=== PATIENT | female | born 1990 | race Caucasian/White ===

== ENCOUNTER 2016-12-16 15:17 | Inpatient (IN) | payer OTHER ==
[2016-12-16 15:17] VITALS: BMI 20.5
[2016-12-16] MEDS ORDERED: Sodium Chloride 0.9% 1,000 ML IV STA ×3 (15:28→16:48)
--- NOTE | 2016-12-16 15:48 | ED PDOC ---
HPI: Abdomen Time Seen by Provider: 12/16/16 15:25 Chief Complaint (Nursing): GI Problem Chief Complaint (Provider): Vomiting and Hyperglycemia History Per: Patient History/Exam Limitations: no limitations Onset/Duration Of Symptoms: Days (4 days) Outside of [place] travel?: No Current Symptoms Are (Timing): Still Present Associated Symptoms: denies: Fever, Diarrhea Additional Complaint(s): Concepcion Zuniga, a 26 year old female,who has a PMHx of insulin dependent diabetes presents to the ED for vomiting and hyperglycemia, which she has been experiencing for 4 days. The patient states that she has been taking her insulin at home and her glucose levels have been in the 400's and have also been reading "HI". Denies associated fever, abdominal pain and diarrhea. Past Medical History Reviewed: Historical Data, Nursing Documentation, Vital Signs Vital Signs: Last Vital Signs Temp 98.0 F 12/16/16 15:20 Pulse 100 H 12/16/16 15:20 Resp 16 12/16/16 15:20 BP 124/69 12/16/16 15:20 Pulse Ox 100 12/16/16 15:58 - Medical History PMH: Bronchitis, Diabetes Denies: Anxiety, Bipolar Disorder, Depression, Paranoia, Post Traumatic Stress Disorder, Chronic Kidney Disease, Schizophrenia - Surgical History Surgical History: - Family History Family History: States: Unknown Family Hx - Social History Current smoker - smoking cessation education provided: Yes Alcohol: Social Drugs: Denies - Immunization History Hx Tetanus Toxoid Vaccination: No Hx Influenza Vaccination: No Hx Pneumococcal Vaccination: No - Home Medications Home Medications: Ambulatory Orders Medication Instructions Recorded Insulin Lispro [humALOG] 10 unit SC ASDIR 11/05/16 Insulin Lispro [humALOG] 15 - 25 unit SC ACTID 11/05/16 - Allergies Allergies/Adverse Reactions: Allergies Allergy/AdvReac Type Severity Reaction Status Date / Time No Known Allergies Allergy Verified 11/28/15 15:06 Review of Systems ROS Statement: Except As Marked, All Systems Reviewed And Found Negative Constitutional: Positive for: Other (Hyperglycemia). Negative for: Fever ENT: Negative for: Throat Pain, Throat Swelling Cardiovascular: Positive for: Chest Pain. Negative for: Palpitations Respiratory: Negative for: Cough, Shortness of Breath Gastrointestinal: Positive for: Nausea, Vomiting. Negative for: Abdominal Pain , Diarrhea Genitourinary Female: Negative for: Dysuria, Hematuria Skin: Negative for: Rash, Lesions Neurological: Negative for: Weakness, Numbness, Incoordination, Confusion, Seizures, Altered Mental Status, Headache, Dizziness Physical Exam - Reviewed Nursing Documentation Reviewed: Yes Vital Signs Reviewed: Yes - Physical Exam Appears: Positive for: Non-toxic, No Acute Distress Head Exam: Positive for: ATRAUMATIC, NORMOCEPHALIC Skin: Positive for: Normal Color, Warm, Dry Eye Exam: Positive for: Normal appearance, EOMI, PERRL ENT: Positive for: Normal ENT Inspection Neck: Positive for: Normal, Painless ROM, Supple Cardiovascular/Chest: Positive for: Tachycardia. Negative for: Irregularly Irregular Respiratory: Positive for: Normal Breath Sounds. Negative for: Wheezing, Respiratory Distress Gastrointestinal/Abdominal: Positive for: Normal Exam, Bowel Sounds, Soft. Negative for: Tenderness Back: Positive for: Normal Inspection. Negative for: L CVA Tenderness, R CVA Tenderness Extremity: Positive for: Normal ROM. 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 Negative for: Motor/Sensory Deficits - Laboratory Results Result Diagrams: 12/16/16 15:45 12/16/16 15:45 Urine POC: Negative - ECG Interpretation Of ECG: ST @ 102, no ST-T changes. O2 Sat by Pulse Oximetry: 100 (RA) Pulse Ox Interpretation: Normal - Radiology X-Ray: Read By Radiologist X-Ray Interpretation: No Acute Disease - Progress ED Course And Treament: Pt administered 3L NS and Insulin drip initiated. - Physician Consult Information Time Consulting Physican Contacted: 17:41 Physician Contacted: Miike Mota Outcome Of Conversation: Admit to ICU. - Critical Care Total Time (In Min): 30 Medical Decision Making Medical Decision Makin:25 Initial Impression: 26 year old female presenting with vomiting and hyperglycemia. Initial Plan: * EKG * CMP * Troponin 1 * Udip * Upreg * CBC * PTT * Prothrombin time * CXR * NS 1000ml IV 1000ml/hr * Zofran Inj 4mg IV * Glucose, blood, POC * Urinalysis Scribe Attestation Documented by Megan Ibanez acting as a scribe for Sarah Whitney MD. Provider Attestation All medical record entries made by the Scribe were at my direction and personally dictated by me. I have reviewed the chart and agree that the record accurately reflects my personal performance of the history, physical exam, medical decision making, and the department course for this patient. I have also personally directed, reviewed, and agree with the discharge instructions and disposition. Disposition - Clinical Impression Clinical Impression: DKA (diabetic ketoacidosis) - Patient ED Disposition Is Patient to be Admitted: Yes - Disposition Disposition Time: 17:45 Condition: GUARDED - Pt Status Changed To: Hospital Disposition Of: Inpatient - Admit Certification Admit to Inpatient:: After my assessment, the patient will require hospitalization for at least two midnights. This is because of the severity of symptoms shown, intensity of services needed, and/or the medical risk in this patient being treated as an outpatient. - POA Present On Arrival: Poor Glycemic Control
[2016-12-16 15:57] LABS: BASO # 0.1 K/uL (0.0-0.2); BASO % 1.1 % (0.0-2.0); EOS % 0.7 % (0.0-4.0); HEMATOCRIT 45.8 % (34.0-47.0); LYMPH # 1.1 K/uL (1.0-4.3); LYMPH % 23.7 % (20.0-40.0); MEAN CELL VOLUME 95.1 fl (81.0-99.0); MEAN CORPUSCULAR HEMOGLOBIN 29.5 pg (27.0-31.0); MONO # 0.2 K/uL (0.0-0.8); MONO % 4.3 % (0.0-10.0); NEUT # 3.4 K/uL (1.8-7.0); NEUT % 70.2 % (50.0-75.0); NRBC % 0.2 % (0.0-0.0); RED CELL DISTRIBUTION WIDTH 15.3 % (11.5-14.5); WHITE BLOOD COUNT 4.8 K/uL (4.8-10.8)
[2016-12-16 16:17] LABS: ALB/GLOB RATIO 1.4 (1.0-2.1); ALKALINE PHOSPHATASE 124 U/L (38-126); ALT/SGPT 59 U/L (9-52); AST/SGOT 57 U/L (14-36); BLOOD UREA NITROGEN 10 mg/dl (7-17); CALCIUM 9.1 mg/dL (8.4-10.2); CHLORIDE 97 mmol/L (98-107); GFR AFRICAN-AMERICAN > 60; SODIUM 137 mmol/l (132-148); TOTAL PROTEIN 8.5 G/DL (6.3-8.2)
[2016-12-16 16:22] LABS: RBC URINE 8 /hpf (0-3); URINE BACTERIA RARE (<OCC); URINE BILIRUBIN NEGATIVE (NEGATIVE); URINE BLOOD NEGATIVE (NEGATIVE); URINE COLOR STRAW (YELLOW); URINE GLUCOSE (UA) >=500 mg/dL (Normal); URINE KETONE 80 mg/dL (NEGATIVE); URINE LEUKOCYTE ESTERASE MOD Leu/uL (Negative); URINE PROTEIN NEGATIVE (NEGATIVE); URINE UROBILINOGEN 0.2-1.0 mg/dL (0.2-1.0); WBC URINE 5 /hpf (0-5)
[2016-12-16 16:23] LABS: PARTIAL THROMBOPLASTIN TIME 23.7 SECONDS (23.3-32.5)
[2016-12-16 16:26] LABS: CARBON DIOXIDE 8 mmol/L (22-30); GLUCOSE,RANDOM 598 mg/dL (65-105)
--- NOTE | 2016-12-16 16:48 | RAD ---
HISTORY: Hyperglycemia COMPARISON: No prior. FINDINGS: LUNGS: No active pulmonary disease. PLEURA: No significant pleural effusion identified, no pneumothorax apparent. CARDIOVASCULAR: Normal. OSSEOUS STRUCTURES: No significant abnormalities. VISUALIZED UPPER ABDOMEN: Normal. OTHER FINDINGS: None. IMPRESSION: No active disease.
[2016-12-16] MEDS ORDERED: Dextrose 50% SYRINGE Inj (50 ml) IV PRN (16:49)
[2016-12-16] MEDS ORDERED: Glucagon Recombinant 1 mg Inj IM PRN (16:49)
[2016-12-16 17:15] LABS: VENOUS BLOOD GAS BASE EXCESS -19.9 mmol/L (0.0-2.0); VENOUS BLOOD GAS PCO2 24 mmHg (40-60); VENOUS BLOOD PH 7.12 (7.32-7.43)
--- NOTE | 2016-12-16 19:48 | CP.PCM.CON ---
History of Present Illness - History of Present Illness History of Present Illness: Attending: Dr Roy PCP: [facility] Reason for Consult: Critical care management Chief Complaint: Vomiting HPI: 26 years old female with hx of DM I and many previous admissions for DKA comes with a three to four days hx of vomiting, generalized body pains, mild dizziness,mild chest pains, palpitations and SOB on exertion, not able to keep down food. She referred taking her Insulin but her blood glucose has been running high. No fever, ulcerations, diarrhea dysuria nor abdominal pains. 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 absent: Edema, Palpitations - Respiratory Respiratory: Dyspnea. absent: Cough, Hemoptysis, Wheezing - Gastrointestinal Gastrointestinal: Nausea, Vomiting. absent: Abdominal Pain, Constipation, Diarrhea - Genitourinary Genitourinary: absent: Dysuria, Flank Pain, Hematuria, Urinary Hesitance - Musculoskeletal Musculoskeletal: Myalgias. absent: Arthralgias, Muscle Weakness - Integumentary Integumentary: absent: Pruritus, Rash, Skin Ulcer, Sores, Striae, Swelling - Neurological Neurological: absent: Confusion, Dizziness, Paresthesias, Vertigo - Psychiatric Psychiatric: absent: Anxiety, Depression, Panic Attacks - Endocrine Endocrine: Palpitations. absent: Polydipsia, Polyphagia, Polyuria - Hematologic/Lymphatic Hematologic: absent: Easy Bleeding, Easy Bruising Past Patient History - Infectious Disease Hx of Infectious Diseases: None - Tetanus Immunizations Tetanus Immunization: Unknown - Past Medical History & Family History Past Medical History?: Yes - Past Social History Smoking Status: Light Smoker < 10 Cigarettes Daily Chewing Tobacco Use: No Cigar Use: No Alcohol: Social Drugs: Denies Home Situation {Lives}: With Family - CARDIAC Hx Cardiac Disorders: No - PULMONARY Hx Respiratory Disorders: No - NEUROLOGICAL Hx Neurological Disorder: No - HEENT Hx HEENT Problems: No - RENAL Hx Chronic Kidney Disease: No - ENDOCRINE/METABOLIC Hx Endocrine Disorders: Yes (dm1) Hx Diabetes Mellitus Type 1: Yes - HEMATOLOGICAL/ONCOLOGICAL Hx Blood Disorders: No - INTEGUMENTARY Hx Dermatological Problems: No - MUSCULOSKELETAL/RHEUMATOLOGICAL Hx Musculoskeletal Disorders: No - GASTROINTESTINAL Hx Gastrointestinal Disorders: No - GENITOURINARY/GYNECOLOGICAL Hx Genitourinary Disorders: No - PSYCHIATRIC Hx Psychophysiologic Disorder: No - SURGICAL HISTORY Hx Surgeries: Yes Hx Section: Yes - ANESTHESIA Hx Anesthesia: Yes Hx Anesthesia Reactions: No Hx Malignant Hyperthermia: No Meds Allergies/Adverse Reactions: Allergies Allergy/AdvReac Type Severity Reaction Status Date / Time No Known Allergies Allergy Verified 11/28/15 15:06 - Medications Medications: Current Medications Dextrose (Dextrose 50% Inj) 0 ml IV STAT PRN; Protocol PRN Reason: Hyglycemia Protocol Dextrose (Glutose 15) 0 gm PO ONCE PRN; Protocol PRN Reason: Hypoglycemia Protocol Glucagon (Glucagen Diagnostic Kit) 0 mg IM STAT PRN; Protocol PRN Reason: Hypoglycemia Protocol Insulin Human Regular 100 (units/ Sodium Chloride) 101 mls @ 6.06 mls/hr IVPB .[id number] LANETTE; 6 UNITS/HR PRN Reason: Protocol Last Admin: 12/16/16 17:19 Dose: 6.06 mls/hr Physical Exam - Constitutional Appears: No Acute Distress - Head Exam Head Exam: ATRAUMATIC, NORMAL INSPECTION, NORMOCEPHALIC - Eye Exam Eye Exam: EOMI, Normal appearance Pupil Exam: NORMAL ACCOMODATION, PERRL - ENT Exam ENT Exam: Mucous Membranes Moist, Normal Exam, Normal External Ear Exam, Normal Oropharynx - Neck Exam Neck exam: Positive for: Full Rom, Normal Inspection. Negative for: Lymphadenopathy, Tenderness - Respiratory Exam Respiratory Exam: Clear to Auscultation Bilateral. absent: Rales, Rhonchi, Wheezes - Cardiovascular Exam Cardiovascular Exam: REGULAR RHYTHM, RRR, +S1, +S2. absent: Gallop, JVD - GI/Abdominal Exam GI & Abdominal Exam: Normal Bowel Sounds, Soft. absent: Mass, Organomegaly, Tenderness - Rectal Exam Rectal Exam: Deferred - Extremities Exam Extremities exam: Positive for: full ROM, normal inspection. Negative for: calf tenderness, pedal edema - Back Exam Back exam: NORMAL INSPECTION. absent: CVA tenderness (L), CVA tenderness (R) - Neurological Exam Neurological exam: Alert, CN II-XII Intact, Oriented x3, Reflexes Normal - Psychiatric Exam Psychiatric exam: Normal Affect, Normal Mood - Skin Skin Exam: Dry, Intact, Normal Color, Warm Results - Vital Signs Recent Vital Signs: Last Vital Signs Temp 98 F 12/16/16 18:30 Pulse 95 H 12/16/16 18:30 Resp 18 12/16/16 18:30 BP 124/79 12/16/16 18:30 Pulse Ox 100 12/16/16 18:30 - Labs Result Diagrams: 12/16/16 15:45 12/16/16 21:07 - EKG Data EKG comments: Sinus tachycardia 102/min - Imaging and Cardiology Chest x-ray Status: Image reviewed by me Additional comment: No active disease Assessment & Plan - Assessment and Plan (Free Text) Assessment: #. DKA #. DM I with Hyperglycemia Plan: 26 years old female with hx of DM I and many previous admissions for DKA comes with a three to four days hx of vomiting, generalized body pains, mild dizziness,mild chest pains, palpitations and SOB on exertion, not able to keep down food. In the ED her Blood Glucose was 598mg/dl #. DKA - IV Fluids NS - IV regular Insulin drip titrate to protocol of DKA until Anion gap has normalized - Accucheck Q1hr - Change IV fluid to D5/NS when Blood Sugar falls below 250mg/dl - Hold diet until Blood glucose is controlled - Monitor Potassium, Magnesium, phosphorus #. DM I with Hyperglycemia - IV fluids and Insulin - Treat as above #. DVT prophylaxis with Lovenox #. Code Status: Full - Date & Time Date: 12/16/16 Time: 19:48
[2016-12-16] MEDS ORDERED: Sodium Chloride 0.9% 1,000 ML IV SCH (20:30)
[2016-12-16 21:44] LABS: BLOOD UREA NITROGEN 7 mg/dl (7-17); CALCIUM 7.8 mg/dL (8.4-10.2); CHLORIDE 107 mmol/L (98-107); GFR AFRICAN-AMERICAN > 60; GLUCOSE,RANDOM 97 mg/dL (65-105); MAGNESIUM 1.7 MG/DL (1.6-2.3); PHOSPHOROUS 2.2 mg/dl (2.5-4.5); POTASSIUM 3.8 MMOL/L (3.6-5.0); SODIUM 143 mmol/l (132-148)
[2016-12-16 21:46] LABS: CARBON DIOXIDE 9 mmol/L (22-30)
[2016-12-16] MEDS: Potassium Chloride 10 MEQ in Dextrose 5%/0.9% NS 1,000 ML IV SCH (23:26)
[2016-12-17] MEDS: Potassium Chloride 10 MEQ in Dextrose 5%/0.9% NS 1,000 ML IV SCH ×2 (04:41→12:29)
[2016-12-17 05:33] LABS: BASO # 0.1 K/uL (0.0-0.2); BASO % 1.1 % (0.0-2.0); EOS # 0.1 K/uL (0.0-0.7); EOS % 1.6 % (0.0-4.0); LYMPH # 1.7 K/uL (1.0-4.3); MEAN CELL VOLUME 92.2 fl (81.0-99.0); MEAN CORPUSCULAR HEMOGLOBIN 29.6 pg (27.0-31.0); MEAN CORPUSCULAR HGB CONC 32.1 g/dL (33.0-37.0); MEAN PLATELET VOLUME 7.5 fl (7.2-11.7); MONO # 0.3 K/uL (0.0-0.8); MONO % 4.8 % (0.0-10.0); NEUT # 3.8 K/uL (1.8-7.0); NEUT % 63.5 % (50.0-75.0); NRBC % 0.1 % (0.0-0.0); RED CELL DISTRIBUTION WIDTH 14.5 % (11.5-14.5)
[2016-12-17 05:47] LABS: BLOOD UREA NITROGEN 6 mg/dl (7-17); CALCIUM 8.1 mg/dL (8.4-10.2); CARBON DIOXIDE 14 mmol/L (22-30); CHLORIDE 105 mmol/L (98-107); GFR AFRICAN-AMERICAN > 60; GLUCOSE,RANDOM 292 mg/dL (65-105); MAGNESIUM 1.7 MG/DL (1.6-2.3); POTASSIUM 4.4 MMOL/L (3.6-5.0); SODIUM 137 mmol/l (132-148)
--- NOTE | 2016-12-17 08:39 | CARD ---
APPROVED REPORT EKG Measurement Heart [id number] <Conclusion> Sinus tachycardia Possible Left atrial enlargement Borderline ECG
[2016-12-17] MEDS: Enoxaparin 40 mg Syringe SC SCH (12:28)
--- NOTE | 2016-12-17 12:28 | CP.PCM.HP ---
History of Present Illness - History of Present Illness History of Present Illness: 26 years old female with hx of DM I and many previous admissions for DKA comes with a three to four days hx of vomiting, generalized body pains, mild dizziness ,mild chest pains, palpitations and SOB on exertion, not able to keep down food. She tried taking her Insulin but her blood glucose has been running high even with the insulin she was using. Yesterday, vomiting became unbearable which prompted ED visit. No fever, diarrhea, dysuria, chills, headache, back pain, constipation/diarrhea. In the ED her Blood Glucose was 598mg/dl. Patient has seen Dr. 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 Patient seen and examined this am with attending. States improvement of symptoms. 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 FH: Unknown family Hx Allergies: NKDA Present on Admission - Present on Admission Any Indicators Present on Admission: Yes History of Uncontrolled Diabetes: Yes Review of Systems - Review of Systems All systems: reviewed and no additional remarkable complaints except (mentioned in HPI) Past Patient History - Infectious Disease Hx of Infectious Diseases: None - Tetanus Immunizations Tetanus Immunization: Unknown - Past Medical History & Family History Past Medical History?: Yes - Past Social History Smoking Status: Light Smoker < 10 Cigarettes Daily Chewing Tobacco Use: No Cigar Use: No Alcohol: Social Drugs: Denies Home Situation {Lives}: With Family - CARDIAC Hx Cardiac Disorders: No - PULMONARY Hx Respiratory Disorders: No - NEUROLOGICAL Hx Neurological Disorder: No - HEENT Hx HEENT Problems: No - RENAL Hx Chronic Kidney Disease: No - ENDOCRINE/METABOLIC Hx Endocrine Disorders: Yes (dm1) Hx Diabetes Mellitus Type 1: Yes - HEMATOLOGICAL/ONCOLOGICAL Hx Blood Disorders: No - INTEGUMENTARY Hx Dermatological Problems: No - MUSCULOSKELETAL/RHEUMATOLOGICAL Hx Musculoskeletal Disorders: No - GASTROINTESTINAL Hx Gastrointestinal Disorders: No - GENITOURINARY/GYNECOLOGICAL Hx Genitourinary Disorders: No - PSYCHIATRIC Hx Psychophysiologic Disorder: No - SURGICAL HISTORY Hx Surgeries: Yes Hx Section: Yes - ANESTHESIA Hx Anesthesia: Yes Hx Anesthesia Reactions: No Hx Malignant Hyperthermia: No Meds Allergies/Adverse Reactions: Allergies Allergy/AdvReac Type Severity Reaction Status Date / Time No Known Allergies Allergy Verified 11/28/15 15:06 Physical Exam - Constitutional Appears: Well, Non-toxic, No Acute Distress - Head Exam Head Exam: ATRAUMATIC, NORMAL INSPECTION, NORMOCEPHALIC - Eye Exam Eye Exam: EOMI, Normal appearance, PERRL - ENT Exam ENT Exam: Mucous Membranes Moist, Normal Exam - Neck Exam Neck exam: Positive for: Normal Inspection - Respiratory Exam Respiratory Exam: Clear to Auscultation Bilateral, NORMAL BREATHING PATTERN - Cardiovascular Exam Cardiovascular Exam: REGULAR RHYTHM, +S1, +S2 - GI/Abdominal Exam GI & Abdominal Exam: Normal Bowel Sounds, Soft. absent: Tenderness - Extremities Exam Extremities exam: Positive for: normal inspection. Negative for: calf tenderness - Back Exam Back exam: NORMAL INSPECTION - Neurological Exam Neurological exam: Alert, Oriented x3 - Psychiatric Exam Psychiatric exam: Normal Affect, Normal Mood - Skin Skin Exam: Dry, Intact, Normal Color, Warm Results - Vital Signs Recent Vital Signs: Last Vital Signs Temp 97.9 F 12/17/16 12:00 Pulse 102 H 12/17/16 12:00 Resp 23 12/17/16 10:00 BP 104/59 L 12/17/16 12:00 Pulse Ox 100 12/17/16 12:00 - Labs Result Diagrams: 12/17/16 04:25 12/17/16 04:25 Labs: Laboratory Results - last 24 hr 12/16/16 12/16/16 12/16/16 18:44 21:07 21:07 WBC RBC Hgb Hct MCV MCH MCHC RDW Plt Count MPV Neut % (Auto) Lymph % (Auto) [place] % (Auto) Eos % (Auto) Baso % (Auto) Neut # Lymph # [place] # Eos # Baso # Sodium 143 Potassium 3.8 Chloride 107 Carbon Dioxide 9 L* Anion Gap 31 H BUN 7 Creatinine 0.6 L Est GFR ( Amer) > 60 Est GFR (Non-Af Amer) > 60 POC Glucose (mg/dL) 362 H 120 H Random Glucose 97 Calcium 7.8 L Phosphorus 2.2 L Magnesium 1.7 12/16/16 12/16/16 12/17/16 22:14 23:21 00:14 WBC RBC Hgb Hct MCV MCH MCHC RDW Plt Count MPV Neut % (Auto) Lymph % (Auto) [place] % (Auto) Eos % (Auto) Baso % (Auto) Neut # Lymph # [place] # Eos # Baso # Sodium Potassium Chloride Carbon Dioxide Anion Gap BUN Creatinine Est GFR ( Amer) Est GFR (Non-Af Amer) POC Glucose (mg/dL) 101 263 H 306 H Random Glucose Calcium Phosphorus Magnesium 12/17/16 12/17/16 12/17/16 01:16 02:24 03:22 WBC RBC Hgb Hct MCV MCH MCHC RDW Plt Count MPV Neut % (Auto) Lymph % (Auto) [place] % (Auto) Eos % (Auto) Baso % (Auto) Neut # Lymph # [place] # Eos # Baso # Sodium Potassium Chloride Carbon Dioxide Anion Gap BUN Creatinine Est GFR ( Amer) Est GFR (Non-Af Amer) POC Glucose (mg/dL) 172 H 119 H 140 H Random Glucose Calcium Phosphorus Magnesium 12/17/16 12/17/16 12/17/16 04:25 04:25 05:21 WBC 6.0 RBC 4.12 Hgb 12.2 D Hct 38.0 MCV 92.2 D MCH 29.6 MCHC 32.1 L RDW 14.5 Plt Count 318 MPV 7.5 Neut % (Auto) 63.5 Lymph % (Auto) 29.0 [place] % (Auto) 4.8 Eos % (Auto) 1.6 Baso % (Auto) 1.1 Neut # 3.8 Lymph # 1.7 [place] # 0.3 Eos # 0.1 Baso # 0.1 Sodium 137 Potassium 4.4 Chloride 105 Carbon Dioxide 14 L Anion Gap 22 H BUN 6 L Creatinine 0.6 L Est GFR ( Amer) > 60 Est GFR (Non-Af Amer) > 60 POC Glucose (mg/dL) 347 H Random Glucose 292 H Calcium 8.1 L Phosphorus Magnesium 1.7 12/17/16 12/17/16 12/17/16 07:17 09:44 11:17 WBC RBC Hgb Hct MCV MCH MCHC RDW Plt Count MPV Neut % (Auto) Lymph % (Auto) [place] % (Auto) Eos % (Auto) Baso % (Auto) Neut # Lymph # [place] # Eos # Baso # Sodium Potassium Chloride Carbon Dioxide Anion Gap BUN Creatinine Est GFR ( Amer) Est GFR (Non-Af Amer) POC Glucose (mg/dL) 191 H 106 328 H Random Glucose Calcium Phosphorus Magnesium Assessment & Plan (1) DKA (diabetic ketoacidosis) Assessment and Plan: IV regular Insulin drip titrate to protocol of DKA until Anion gap has normalized Accuchecks q2h IV fluid to D5/NS due to improvement of POC glucose Hold diet until Blood glucose is controlled Monitor Potassium, Magnesium, phosphorus Endocrinology on consult, appreciate recommendations Advance diet as tolerated Status: Acute (2) Type 1 diabetes Assessment and Plan: Endocrinology consulted, appreciate recommendations for safe discharge and continued control of DM Status: Chronic (3) DVT prophylaxis Assessment and Plan: Lovenox Status: Acute Decision To Admit - Pt Status Changed To: Hospital Disposition Of: Inpatient - Admit Certification Admit to Inpatient:: After my assessment, the patient will require hospitalization for at least two midnights. This is because of the severity of symptoms shown, intensity of services needed, and/or the medical risk in this patient being treated as an outpatient. - . Bed Request Type: Intensive Care Admitting Physician: Carlos Roy
[2016-12-17 17:52] LABS: BLOOD UREA NITROGEN 4 mg/dl (7-17); CALCIUM 8.1 mg/dL (8.4-10.2); CARBON DIOXIDE 13 mmol/L (22-30); CHLORIDE 107 mmol/L (98-107); GFR AFRICAN-AMERICAN > 60; GLUCOSE,RANDOM 152 mg/dL (65-105); POTASSIUM 4.1 MMOL/L (3.6-5.0); SODIUM 136 mmol/l (132-148)
--- NOTE | 2016-12-17 21:16 | CON ---
DATE: 12/17/2016 ICU, ROOM: 422. HISTORY OF PRESENT ILLNESS: This is a 26-year-old female with known history of type 1 insulin-depend ent diabetes, presenting here with intractable vomiting and concomitant nausea, dyspepsia, and upper abdominal pain and has been evaluated to be in diabetic ketoacidosis with ongoing insulin drip infusi on at this time and is being referred for diabetic evaluation and management. PAST MEDICAL HISTORY: As mentioned above, history of type 1 insulin-dependent diabetes on a combinat ion of Humalog given at a variable dose of between 15-25 units t.i.d. before meals and Levemir given also at a variable dose of 10-20 units at bedtime. The patient has very poor followup with her medic al doctors and follows in the medical clinic in [facility]. FAMILY HISTORY: Positive for hypertension and diabetes. SOCIAL HISTORY: The patient has supportive family. Admits to cigarette smoking close to half a pack a day for some years now. REVIEW OF SYSTEMS: Admits to generalized body weakness with easy fatigability and tiredness and subo ptimal energy level with episodic dizziness and lightheadedness, worse on the day of admission. Also , admits to precordial pressure sensation, but no overt substernal pain or shortness of breath. Her oral intake has been variable and suboptimal with nausea, dyspepsia, and vague upper abdominal pain a nd supervening intractable vomiting episodes. Also, admits to marked polyuria, nocturia and about a 5-pound or so weight loss. PHYSICAL EXAMINATION: GENERAL: This is an ____ female in no apparent distress. VITAL SIGNS: Blood pressure of 140/80, pulse of 70 beats per minute and regular, temperature 98, res pirations 20. Height is 5 feet 3, weight is 125 pounds. HEENT: Head normocephalic. Eyes anicteric with pink conjunctivae. Fundoscopy not possible at this time. Ears, nose and throat otherwise normal. NECK: Supple. Thyroid gland is normal size. No carotid bruits or any cervical adenopathy. CARDIOPULMONARY: Some adynamic precordium. S1, S2 is rapid and regular. LUNGS: Clear to auscultation. ABDOMEN: Flat, soft with positive bowel sounds. EXTREMITIES: No peripheral edema. Pulses are +2 bilaterally. LABORATORY DATA: Her chemistries showed a BUN of 10, sodium 137, potassium 5.0, chloride 97, CO2 is 8, glucose is 598 and creatinine is 0.7. The subsequent glucose levels have ranged from 182-214 mg/d L. Her A1c is 9.8%. The latest CO2 is 13 done at 4:45 today. ASSESSMENT: This is a 26-year-old female with uncontrolled and decompensated type 1 insulin-dependen t diabetes, presenting here with diabetic ketoacidosis and dehydration and with clearly suboptimal me tabolic control on the outpatient with persistently elevated A1c levels. PLAN OF MANAGEMENT: We would continue the insulin drip infusion overnight to optimize her insulin re placement therapy. Moreover, we will continue the vigorous IV hydration with normal saline and potas sium supplementation as ordered. As her oral intake improves and also acidosis resolves, with at francis st a CO2 above 15, we would switch over to a more physiologic insulin regimen with a combination of a basal and bolus insulin drug combination as indicated. I also discussed with the patient at bedside regarding the need for an insulin pump as her outpatient____ management and to optimize her metaboli c control. The patient will follow with her primary physician in [facility] and will discuss th e need for an insulin pump as mentioned. We would also highly recommend a followup with an endocrino logist in the outpatient. She has had no endocrine followup for over 5 years or so at this time. He r previous production assembly supervisor was Dr. Gordon, who has since transferred out of [facility] area. We w ill obtain serial chemistries and supplement accordingly as needed. We will also consult our diabeti c nurse educator to reinforce education and the need for more optimal metabolic control. We will fol low. Monet Gallego MD cc: [id number] TT: 12/17/2016 21:16:33 Confirmation # [id number] Dictation # [id number] iain
--- NOTE | 2016-12-17 22:34 | CP.CCUPN ---
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 Afebrile, no fever spikes, Bp 120/78, HR 109, RR 18, SPO2 99% on RA. 24H I/O's= positive 1.4L ROS: as above, no other pertinent negs or positives on 10 system review. PMFSH: all nursing and historical notes reviewed, no new pertinent data relevant to current problems. No other distress noted: EXAM- HEENT: no icterus, pupils equal and reactive NECK: no visible JVD, supple, carotids equal upstroke bilat/no bruits CHEST: decreased BS bases but overall clear, no wheezes HEART: regular, distant, S1S2, no murmur audible, no rubs. ABD: soft, no increased distention, no focal tenderness, no HSM. BS hypoactive , EXT: no edema, no peripheral/ digital cyanosis, no calf tenderness or palpable cords, distal pulses intact and symmetrical NEURO: oriented x 3; no gross focal motor deficits SKIN: no rashes LABS: WBC= 6.0 HGB= 12.2 PLTs= 318K Na= 137 K= 4.4 HCO3= 14 BUN/Cr= 6/0.6 BS= 292 Trops negative x1 CXR: (my interp) clear MAJOR PROBLEMS NOW: 1. DKA with DM I 2. UTI PLAN: 1. Ongoing IVF hydration and Insulin drip until anion gap normalizes or serum bicarb at least 18-20. 2. PO diet as tolerated. 3. Await HGBA1c, Endocrine consult. 4. Symptoms of SOB 2' to hyperventilation, CXR is clear. 5. Check UA, Urine cx, consider empiric quinolone.
[2016-12-18 00:01] LABS: RBC URINE 17 /hpf (0-3); URINE BACTERIA OCC (<OCC); URINE BILIRUBIN NEGATIVE (NEGATIVE); URINE BLOOD NEGATIVE (NEGATIVE); URINE COLOR YELLOW (YELLOW); URINE GLUCOSE (UA) 150 mg/dL (Normal); URINE KETONE TRACE mg/dL (NEGATIVE); URINE LEUKOCYTE ESTERASE LARGE Leu/uL (Negative); URINE PROTEIN 30 mg/dL (NEGATIVE); URINE UROBILINOGEN 0.2-1.0 mg/dL (0.2-1.0); WBC URINE 28 /hpf (0-5)
[2016-12-18] MEDS: Dextrose 5%/0.9% NS 1,000 ML IV SCH ×2 (02:00→09:05)
[2016-12-18 05:28] LABS: HEMATOCRIT 31.9 % (34.0-47.0); MEAN CELL VOLUME 91.1 fl (81.0-99.0); MEAN CORPUSCULAR HEMOGLOBIN 30.2 pg (27.0-31.0); MEAN CORPUSCULAR HGB CONC 33.1 g/dL (33.0-37.0); RED CELL DISTRIBUTION WIDTH 14.3 % (11.5-14.5); WHITE BLOOD COUNT 5.5 K/uL (4.8-10.8)
[2016-12-18 05:54] LABS: ALB/GLOB RATIO 1.2 (1.0-2.1); ALKALINE PHOSPHATASE 68 U/L (38-126); ALT/SGPT 44 U/L (9-52); AST/SGOT 62 U/L (14-36); BILIRUBIN,TOTAL < 0.1 mg/dl (0.2-1.3); BLOOD UREA NITROGEN 9 mg/dl (7-17); CALCIUM 8.3 mg/dL (8.4-10.2); CARBON DIOXIDE 17 mmol/L (22-30); CHLORIDE 108 mmol/L (98-107); GFR AFRICAN-AMERICAN > 60; GLUCOSE,RANDOM 162 mg/dL (65-105); PHOSPHOROUS 1.8 mg/dl (2.5-4.5); POTASSIUM 3.6 MMOL/L (3.6-5.0); SODIUM 140 mmol/l (132-148); TOTAL PROTEIN 5.5 G/DL (6.3-8.2)
[2016-12-18 06:21] LABS: THYROID STIMULATING HORMONE 4.24 mIU/ML (0.46-4.68)
[2016-12-18] MEDS ORDERED: Magnesium Sulfate 1 gm in D5W 1 GM/100 ML BAG IVPB ONE (06:51)
[2016-12-18] MEDS ORDERED: Potassium Phosphate 30 MMOLE in Dextrose 5% In Water 250 ML IV ONE (06:52)
[2016-12-18] MEDS: Enoxaparin 40 mg Syringe SC SCH (09:05)
[2016-12-18] MEDS: Insulin Lispro (humaLOG) 100 Units/ml Inj SC SCH ×2 (11:10→13:18)
--- NOTE | 2016-12-18 11:21 | CP.CCUPN ---
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 States he is on a Humulog regimen TID pending amount of Carbs consumed, and has never been on long-acting Insulin. Afebrile, no fever spikes, Bp 110/78, HR 89, RR 18, SPO2 99% on RA. ROS: as above, no other pertinent negs or positives on 10 system review. PMFSH: all nursing and historical notes reviewed, no new pertinent data relevant to current problems. No other distress noted: EXAM- HEENT: no icterus, pupils equal and reactive NECK: no visible JVD, supple, carotids equal upstroke bilat/no bruits CHEST: decreased BS bases but overall clear, no wheezes HEART: regular, distant, S1S2, no murmur audible, no rubs. ABD: soft, no increased distention, no focal tenderness, no HSM. BS hypoactive , EXT: no edema, no peripheral/ digital cyanosis, no calf tenderness or palpable cords, distal pulses intact and symmetrical NEURO: oriented x 3; no gross focal motor deficits SKIN: no rashes LABS: WBC= 5.5 HGB= 10.6 PLTs= 250K Na= 140 K= 3.6 HCO3= 17 BUN/Cr= 9/0.7 BS= 162 Phos = 1.8 MAJOR PROBLEMS NOW: 1. DKA with DM I 2. UTI PLAN: 1. Will start Humulog insulin with meals. 2. Maintain IVF hydration. 3. Phosphates and Mag supplement. 4. Stable for regular medical bed.
--- NOTE | 2016-12-18 15:08 | CP.PCM.PN ---
Subjective - Date & Time of Evaluation Date of Evaluation: 12/18/16 Time of Evaluation: 08:06 - Subjective Subjective: Patient seen and examined at bedside with attending. Patient off insulin drip. States she feels well. No complaints. No fever, chills, abdominal pain, nausea, vomiting, headache. Patient was seen by endocrinology yesterday. Tolerating PO well. Objective - Vital Signs/Intake and Output Vital Signs (last 24 hours): Temp Pulse Resp BP Pulse Ox 98.2 F 78 20 115/76 98 12/18/16 12:19 12/18/16 12:19 12/18/16 12:19 12/18/16 12:19 12/18/16 12:19 Intake and Output: 12/18/16 12/18/16 06:59 18:59 Intake Total 2701 530 Output Total 500 Balance 2701 30 - Medications Medications: Current Medications Ciprofloxacin (Cipro) 250 mg PO Q12 [facility] Last Admin: 12/18/16 09:05 Dose: 250 mg Dextrose (Dextrose 50% Inj) 0 ml IV STAT PRN; Protocol PRN Reason: Hyglycemia Protocol Dextrose (Glutose 15) 0 gm PO ONCE PRN; Protocol PRN Reason: Hypoglycemia Protocol Enoxaparin Sodium (Lovenox) 40 mg SC DAILY [facility] PRN Reason: Protocol Last Admin: 12/18/16 09:05 Dose: Not Given Glucagon (Glucagen Diagnostic Kit) 0 mg IM STAT PRN; Protocol PRN Reason: Hypoglycemia Protocol Dextrose/Sodium Chloride (Dextrose 5%/0.9% Ns 1000 Ml) 1,000 mls @ 150 mls/hr IV .Q6H40M [facility] Stop: 12/19/16 01:59 Last Admin: 12/18/16 09:05 Dose: 150 mls/hr Insulin Detemir (Levemir) 24 units SC HS [facility] Insulin Human Lispro (Humalog) 0 units SC ACHS [facility] PRN Reason: Protocol Insulin Human Lispro (Humalog) 12 units SC AC [facility] Ondansetron HCl (Zofran Inj) 4 mg IVP Q4 PRN PRN Reason: Nausea/Vomiting - Labs Labs: 12/18/16 05:05 12/18/16 05:05 PT 10.0 SECONDS (9.6-11.2) 12/16/16 15:45 INR 0.96 (0.92-1.08) 12/16/16 15:45 APTT 23.7 SECONDS (23.3-32.5) 12/16/16 15:45 - Constitutional Appears: Well, Non-toxic, No Acute Distress - Head Exam Head Exam: ATRAUMATIC, NORMAL INSPECTION, NORMOCEPHALIC - Eye Exam Eye Exam: Normal appearance - Neck Exam Neck Exam: Normal Inspection - Respiratory Exam Respiratory Exam: Clear to Ausculation Bilateral, NORMAL BREATHING PATTERN - Cardiovascular Exam Cardiovascular Exam: REGULAR RHYTHM, +S1, +S2. absent: Murmur - GI/Abdominal Exam GI & Abdominal Exam: Soft, Normal Bowel Sounds. absent: Tenderness - Extremities Exam Extremities Exam: Normal Inspection - Neurological Exam Neurological Exam: Alert, Awake, Oriented x3 - Psychiatric Exam Psychiatric exam: Normal Affect, Normal Mood - Skin Skin Exam: Dry, Intact, Normal Color, Warm Assessment and Plan (1) DKA (diabetic ketoacidosis) Assessment & Plan: Glucose continues to be labile Management per endocrinology, appreciate recommendations Accuchecks SHONS Tx to medical floor Monitor electrolytes Diabetic diet Status: Acute (2) Type 1 diabetes Assessment & Plan: Endocrinology consulted, appreciate recommendations for safe discharge and continued control of DM Status: Chronic (3) DVT prophylaxis Assessment & Plan: Lovenox Status: Acute
[2016-12-18] MEDS ORDERED: Insulin Lispro (humaLOG) 100 Units/ml Inj SC SCH ×2 (16:30)
[2016-12-18 16:44] VITALS: BP 116/78; PULSE 95; RESP 18; TEMP 98.3; O2SAT 100
[2016-12-18] MEDS ORDERED: Insulin Detemir 100 Units/ml Inj SC SCH (22:00)
--- NOTE | 2016-12-21 08:33 | PN ---
DATE: 12/18/2016 LOCATION: Room , ICU. This is a 26-year-old female with recent uncontrolled type 1 insulin-dependent diabetes, presenting h ere with diabetic ketoacidosis and dehydration and has just had improved metabolic indices and resolv ing acidosis today and the insulin drip infusion will be discontinued accordingly. Her glycemic prof ile shows a glucose extremely fluctuating ranging from 233-428 mg/dL. It was 380 this morning before breakfast. The chemistry showed a BUN of 9, sodium 140, potassium 3.6, chloride 108, CO2 of 1 7, glucose , and creatinine 0.7. So, at this time, will continue the vigorous IV hydration and change the IVs to normal saline at 150 mL per hour as ordered. Will also switch the insulin dr ip, which will discontinued at this time to a more physiologic basal and bolus insulin regimen as ord ered. Will start her with Humalog given as units subQ t.i.d. before meals to start at dinnerti me today as ordered. Will also add Levemir given as 24 units subQ at bedtime daily to start tonight. Will modify the coverage scale hypoglycemia and detailed orders have been given for a low dos e correction scale using Humalog insulin as ordered. Will obtain serial chemistries and supplement a ccordingly as needed. Monet Gallego MD cc: [id number] TT: 12/18/2016 18:57:15 Confirmation # [id number] Dictation # [id number] leandro
[2016-12-21 16:57] LABS: CORTISOL AM 3.6 ug/dL (4.46-22.7)
== END 2016-12-18 17:15 | disposition left against medical advice (07) | DRG 295 ==
LOC: H.ER 15:17 → H.ERHOLD 17:45 → H.ICU/CCU 20:30
PROVIDERS: ADMIT Internal Medicine; ATTEND Internal Medicine
DX: E10.10 Type 1 diabetes mellitus with ketoacidosis without coma (principal); N39.0 Urinary tract infection, site not specified; E86.0 Dehydration; R07.9 Chest pain, unspecified; F17.210 Nicotine dependence, cigarettes, uncomplicated; Z79.4 Long term (current) use of insulin; Z83.3 Family history of diabetes mellitus; Z82.49 Family history of ischemic heart disease and other diseases of the circulatory system

== ENCOUNTER 2017-03-18 16:45 | Inpatient (IN) | payer OTHER ==
[2017-03-18] MEDS ORDERED: Sodium Chloride 0.9% 1,000 ML IV STA ×2 (17:05→17:43)
[2017-03-18] MEDS ORDERED: Insulin Regular 100 units/ml IVP ONE (17:43)
[2017-03-18 17:52] LABS: VENOUS BLOOD GAS BASE EXCESS -15.4 mmol/L (0.0-2.0); VENOUS BLOOD GAS PCO2 30 mmHg (40-60); VENOUS BLOOD PH 7.19 (7.32-7.43)
[2017-03-18 17:59] LABS: BLOOD UREA NITROGEN 13 mg/dl (7-17); CALCIUM 9.7 mg/dL (8.4-10.2); CHLORIDE 94 mmol/L (98-107); GFR AFRICAN-AMERICAN > 60; POTASSIUM 4.4 MMOL/L (3.6-5.0); SODIUM 134 mmol/l (132-148)
[2017-03-18 18:01] LABS: CARBON DIOXIDE 9 mmol/L (22-30)
--- NOTE | 2017-03-18 18:04 | ED PDOC ---
Hyperglycemia/Hypoglycemia Chief Complaint (Nursing): High Blood Sugar Chief Complaint (Provider): High Blood Sugar History Per: Patient History/Exam Limitations: no limitations Onset/Duration Of Symptoms: Hrs Current Symptoms Are (Timing): Still Present Causative (Exacerbating) Factor(s): Missed Taking Medication : The patient does not have any of the infectious symptoms listed except for those marked. Additional Complaint(s): Concepcion Zuniga is a 26 year old female that is an insulin-dependent diabetic that presents to the ED after missing a dose of her insulin this morning. Patient reports that when she checked her sugar prior to arrival in ED, it was over 800, which prompted her to take 30 units of Humalog. She denies any nausea or vomiting, and stated that in the past when she has missed a dose of insulin she has gone into diabetic ketoacidosis. Patient has been taking PCN for dental infection. Of Note: Patient under care of Dr. Bill. Past Medical History Reviewed: Historical Data, Nursing Documentation, Vital Signs Vital Signs: Last Vital Signs Temp 98.2 F 03/18/17 16:47 Pulse 107 H 03/18/17 16:47 Resp 18 03/18/17 16:47 BP 101/69 03/18/17 16:47 Pulse Ox 100 03/18/17 16:47 - Medical History PMH: Bronchitis, Diabetes Denies: Anxiety, Bipolar Disorder, Depression, Paranoia, Post Traumatic Stress Disorder, Chronic Kidney Disease, Schizophrenia Other PMH: DKA - Surgical History Surgical History: - Family History Family History: States: Unknown Family Hx - Immunization History Hx Tetanus Toxoid Vaccination: No Hx Influenza Vaccination: No Hx Pneumococcal Vaccination: No - Home Medications Home Medications: Ambulatory Orders Medication Instructions Recorded Insulin Lispro [humALOG] 10 unit SC ASDIR 11/05/16 Insulin Lispro [humALOG] 20 - 30 unit SC ACTID 11/05/16 Insulin Glargine,Hum.rec.anlog 30 unit SC HS 03/18/17 [Lupillo Burciaga] - Allergies Allergies/Adverse Reactions: Allergies Allergy/AdvReac Type Severity Reaction Status Date / Time No Known Allergies Allergy Verified 11/28/15 15:06 Review of Systems ROS Statement: Except As Marked, All Systems Reviewed And Found Negative Constitutional: Positive for: Other (high blood sugar). Negative for: Fever, Chills ENT: Positive for: Other (DENTAL PAIN) Gastrointestinal: Negative for: Nausea, Vomiting Physical Exam - Reviewed Nursing Documentation Reviewed: Yes Vital Signs Reviewed: Yes - Physical Exam Appears: Positive for: Non-toxic, No Acute Distress Head Exam: Positive for: ATRAUMATIC, NORMOCEPHALIC Skin: Positive for: Normal Color, Warm Eye Exam: Positive for: Normal appearance, EOMI, PERRL ENT: Positive for: Other (NO ABSCESS NOTED; DENTAL TENDERNESS NOTED RIGHT PRE- MOLAR. NO GINGIVAL SWELLING.) Cardiovascular/Chest: Positive for: Regular Rate, Rhythm. Negative for: Murmur Respiratory: Positive for: Normal Breath Sounds. Negative for: Wheezing Gastrointestinal/Abdominal: Positive for: Normal Exam, Soft. Negative for: Tenderness Neurologic/Psych: Positive for: Alert, Oriented. Negative for: Motor/Sensory Deficits - Laboratory Results Result Diagrams: 03/18/17 18:00 03/18/17 17:40 Urine POC: Negative Urine dip results: Positive for: Ketones, Glucose. Negative for: Leukocyte Esterase, Blood, Nitrate, Bilirubin - ECG O2 Sat by Pulse Oximetry: 100 (RA) Pulse Ox Interpretation: Normal - Progress ED Course And Treament: URINE DIP NOTED KETONES POSITIVE. NS 2 LITERS WIDE OPEN. D/W DR. SOARES; 6 UNITS INSULIN IV X 1 DOSE PATIENT APPROACHING LOW 250 BS; D5 1/2 NS 150 ML PER HOUR CASE D/W DR. BILL. D/W DR. HANSEN. CLINDAMYCIN 600MG IV X [address] NARANJO. Medical Decision Making Medical Decision Making: Impression: DKA Plan: * EKG * BMP * CBC * Urine Dip * Urine * Urinalysis * Humulin 6 units IV * NaCl 1000 mLs at 1000 mLs/hr * Reevaluation EKG shows NSR at 96 bpm, no ectopy, no acute changes. Urine dip was negative for , positive for ketones and >500 glucose. Scribe Attestation: Documented by Leah Donahue, acting as a scribe for Akil Lemus PA-C. Provider Scribe Attestation: All medical record entries made by the Scribe were at my direction and personally dictated by me. I have reviewed the chart and agree that the record accurately reflects my personal performance of the history, physical exam, medical decision making, and the department course for this patient. I have also personally directed, reviewed, and agree with the discharge instructions and disposition. Disposition - Clinical Impression Clinical Impression: DKA (diabetic ketoacidosis) - Patient ED Disposition Is Patient to be Admitted: Yes - Disposition Disposition Time: 19:14 Condition: FAIR Forms: [employer] (Arabic) - Pt Status Changed To: Hospital Disposition Of: Inpatient - Admit Certification Admit to Inpatient:: After my assessment, the patient will require hospitalization for at least two midnights. This is because of the severity of symptoms shown, intensity of services needed, and/or the medical risk in this patient being treated as an outpatient.
[2017-03-18] MEDS ORDERED: Insulin Regular 100 units/ml ONE (18:05)
[2017-03-18 18:14] LABS: GLUCOSE,RANDOM 674 mg/dL (65-105)
[2017-03-18 18:19] LABS: BASO % 1.2 % (0.0-2.0); EOS # 0.1 K/uL (0.0-0.7); EOS % 1.6 % (0.0-4.0); HEMATOCRIT 37.3 % (34.0-47.0); LYMPH # 1.1 K/uL (1.0-4.3); LYMPH % 26.8 % (20.0-40.0); MEAN CELL VOLUME 95.5 fl (81.0-99.0); MEAN CORPUSCULAR HEMOGLOBIN 30.4 pg (27.0-31.0); MEAN CORPUSCULAR HGB CONC 31.8 g/dL (33.0-37.0); MEAN PLATELET VOLUME 7.5 fl (7.2-11.7); MONO # 0.3 K/uL (0.0-0.8); MONO % 6.2 % (0.0-10.0); NEUT # 2.7 K/uL (1.8-7.0); NEUT % 64.2 % (50.0-75.0); RED CELL DISTRIBUTION WIDTH 14.1 % (11.5-14.5); WHITE BLOOD COUNT 4.1 K/uL (4.8-10.8)
[2017-03-18] MEDS ORDERED: Glucagon Recombinant 1 mg Inj IM PRN (18:56)
[2017-03-18] MEDS ORDERED: Dextrose 50% SYRINGE Inj (50 ml) IV PRN (18:56)
[2017-03-18] MEDS: Dextrose 5%/0.45% NS 1,000 ML IV SCH (19:39)
[2017-03-18] MEDS: Clindamycin 600 MG in Sodium Chloride 0.9% 100 ML IVPB STA (19:40)
--- NOTE | 2017-03-18 20:30 | CP.PCM.CON ---
History of Present Illness - History of Present Illness History of Present Illness: CC/Reason for ICU: DKA HPI: THis is a 26 y/o female with MHx significant DM1. She comes in with elevated blood sugars, nausea, and malaise. She was found in ER to have ser gluc > 500. She states she just missed one dose of her LA insulin and went into DKA. She is being treated for a dental infection with PCN. Denies abd pain. Denies f/c/v/d. Patient states she has had multiple episodes of DKA this past year with just missing a single dose of insulin. Patient has no other c/c. ROS: 14 systems reviewed, negative other than HPI MHx: DM1 SHx: C-sec x 2 Allergies; NKDA Medications: As per med rec Family Hx: Some cancer on father's side, otherwise no relevant history Social Hx: Lives with family, no significant EtOH, occasional tobacco Past Patient History - Infectious Disease Hx of Infectious Diseases: None - Tetanus Immunizations Tetanus Immunization: Unknown - Past Medical History & Family History Past Medical History?: Yes - Past Social History Smoking Status: Light Smoker < 10 Cigarettes Daily - CARDIAC Hx Cardiac Disorders: No - PULMONARY Hx Bronchitis: Yes - NEUROLOGICAL Hx Neurological Disorder: No - HEENT Hx HEENT Problems: No - RENAL Hx Chronic Kidney Disease: No - ENDOCRINE/METABOLIC Hx Endocrine Disorders: Yes (dm1) Hx Diabetes Mellitus Type 1: Yes - HEMATOLOGICAL/ONCOLOGICAL Hx Blood Disorders: No - INTEGUMENTARY Hx Dermatological Problems: No - MUSCULOSKELETAL/RHEUMATOLOGICAL Hx Musculoskeletal Disorders: No - GASTROINTESTINAL Hx Gastrointestinal Disorders: No - GENITOURINARY/GYNECOLOGICAL Hx Genitourinary Disorders: No - PSYCHIATRIC Hx Anxiety: No Hx Bipolar Disorder: No Hx Depression: No Hx Paranoia: No Hx Post Traumatic Stress Disorder: No Hx Schizophrenia: No - SURGICAL HISTORY Hx Surgeries: Yes Hx Section: Yes (x2) - ANESTHESIA Hx Anesthesia: Yes Hx Anesthesia Reactions: No Hx Malignant Hyperthermia: No Meds Allergies/Adverse Reactions: Allergies Allergy/AdvReac Type Severity Reaction Status Date / Time No Known Allergies Allergy Verified 11/28/15 15:06 - Medications Medications: Current Medications Acetaminophen (Tylenol 325mg Tab) 650 mg PO Q6H PRN PRN Reason: Pain, Mild (1-3) Acetaminophen (Tylenol 325mg Tab) 650 mg PO Q6H PRN PRN Reason: Fever >100.4 F Dextrose (Dextrose 50% Inj) 0 ml IV STAT PRN; Protocol PRN Reason: Hyglycemia Protocol Dextrose (Glutose 15) 0 gm PO ONCE PRN; Protocol PRN Reason: Hypoglycemia Protocol Enoxaparin Sodium (Lovenox) 40 mg SC DAILY [facility] PRN Reason: Protocol Glucagon (Glucagen Diagnostic Kit) 0 mg IM STAT PRN; Protocol PRN Reason: Hypoglycemia Protocol Insulin Human Regular 100 (units/ Sodium Chloride) 101 mls @ 5.45 mls/hr IV .[id number] [facility]; 5.4 UNITS/HR PRN Reason: Protocol Last Admin: 03/18/17 19:36 Dose: 5.45 mls/hr Dextrose/Sodium Chloride (Dextrose 5%/0.45% Ns 1000 Ml) 1,000 mls @ 150 mls/hr IV .Q6H40M [facility] Stop: 03/19/17 08:34 Last Admin: 03/18/17 19:39 Dose: 150 mls/hr Clindamycin Phosphate 600 mg/ (Sodium Chloride) 104 mls @ 96.296 mls/hr IVPB Q8H [facility] Ondansetron HCl (Zofran Inj) 4 mg IVP Q6 PRN PRN Reason: Nausea/Vomiting Oxycodone/Acetaminophen (Percocet 5/325 Mg Tab) 1 tab PO Q6 PRN PRN Reason: Pain, moderate (4-7) Physical Exam - Constitutional Appears: No Acute Distress - Head Exam Head Exam: ATRAUMATIC, NORMOCEPHALIC - Eye Exam Eye Exam: EOMI, PERRL - ENT Exam ENT Exam: Mucous Membranes Dry - Neck Exam Neck exam: Positive for: Full Rom - Respiratory Exam Respiratory Exam: Clear to Auscultation Bilateral, NORMAL BREATHING PATTERN - Cardiovascular Exam Cardiovascular Exam: Tachycardia, REGULAR RHYTHM, +S1, +S2 - GI/Abdominal Exam GI & Abdominal Exam: Normal Bowel Sounds, Soft - Extremities Exam Extremities exam: Positive for: full ROM, normal inspection - Neurological Exam Neurological exam: Alert, CN II-XII Intact, Oriented x3 - Psychiatric Exam Psychiatric exam: Normal Affect, Normal Mood - Skin Skin Exam: Dry, Warm Results - Vital Signs Recent Vital Signs: Last Vital Signs Temp 98.2 F 03/18/17 16:47 Pulse 99 H 03/18/17 19:36 Resp 16 03/18/17 19:36 BP 120/75 03/18/17 19:36 Pulse Ox 100 03/18/17 19:36 - Labs Result Diagrams: 03/18/17 18:00 03/18/17 17:40 - EKG Data EKG Interpreted by: Myself EKG shows normal: Sinus rhythm Rate: Normal Assessment & Plan (1) DKA (diabetic ketoacidosis) Assessment and Plan: 26 y/o female with DKA in setting of missed insulin dose and dental infection. -Admit ICU -Cont NPO, IVF, currently d5 1/2 -Cont insulin gtt -Cont q1h accuchecks and repeat labs and VBG ~2200 -Cont Clinda 600 q6h IV for dental infection as started in ER -Consult with Dr. Gallego in AM -[facility] for DVT PPx Status: Acute (2) DVT prophylaxis Status: Acute
[2017-03-18 21:57] LABS: BLOOD UREA NITROGEN 9 mg/dl (7-17); CARBON DIOXIDE 16 mmol/L (22-30); CHLORIDE 107 mmol/L (98-107); GFR AFRICAN-AMERICAN > 60; GLUCOSE,RANDOM 102 mg/dL (65-105); POTASSIUM 3.6 MMOL/L (3.6-5.0); SODIUM 136 mmol/l (132-148)
[2017-03-18] MEDS: Clindamycin 600 MG in Sodium Chloride 0.9% 100 ML IVPB SCH (22:33)
[2017-03-19] MEDS: Oxycodone/Acetaminophen 5/325 mg Tab PO PRN ×2 (02:00→10:17)
[2017-03-19] MEDS ORDERED: Insulin Lispro (humaLOG) 100 Units/ml Inj SC STA ×2 (02:34)
[2017-03-19] MEDS: Clindamycin 600 MG in Sodium Chloride 0.9% 100 ML IVPB STA (02:45)
[2017-03-19] MEDS: Clindamycin 600 MG in Sodium Chloride 0.9% 100 ML IVPB SCH ×3 (02:57→20:53)
[2017-03-19] MEDS: Dextrose 5%/0.45% NS 1,000 ML IV SCH (02:58)
[2017-03-19 03:31] VITALS: BMI 21.2
[2017-03-19 05:54] LABS: HEMATOCRIT 34.1 % (34.0-47.0); MEAN CELL VOLUME 92.3 fl (81.0-99.0); MEAN CORPUSCULAR HEMOGLOBIN 30.4 pg (27.0-31.0); RED CELL DISTRIBUTION WIDTH 13.9 % (11.5-14.5); WHITE BLOOD COUNT 5.9 K/uL (4.8-10.8)
[2017-03-19 06:13] LABS: ALB/GLOB RATIO 1.3 (1.0-2.1); ALKALINE PHOSPHATASE 78 U/L (38-126); ALT/SGPT 62 U/L (9-52); AST/SGOT 65 U/L (14-36); BILIRUBIN,TOTAL 0.3 mg/dl (0.2-1.3); BLOOD UREA NITROGEN 8 mg/dl (7-17); CALCIUM 8.4 mg/dL (8.4-10.2); CARBON DIOXIDE 16 mmol/L (22-30); CHLORIDE 106 mmol/L (98-107); CHOLESTEROL 157 mg/dL (0-199); GFR AFRICAN-AMERICAN > 60; GLUCOSE,RANDOM 114 mg/dL (65-105); POTASSIUM 3.5 MMOL/L (3.6-5.0); SODIUM 137 mmol/l (132-148); T4 4.88 ug/dl (5.5-11.0); TOTAL PROTEIN 5.7 G/DL (6.3-8.2)
[2017-03-19 06:18] LABS: THYROID STIMULATING HORMONE 4.45 mIU/ML (0.46-4.68)
[2017-03-19] MEDS: Insulin Lispro (humaLOG) 100 Units/ml Inj SC SCH ×6 (06:46→22:11)
[2017-03-19] MEDS ORDERED: Oxycodone/Acetaminophen 5/325 mg Tab PO ONE (06:56)
--- NOTE | 2017-03-19 07:39 | CP.PCM.HP ---
<ShahidAnn-Marie escamilla - Last Filed: 03/19/17 12:13> History of Present Illness - History of Present Illness History of Present Illness: Patient seen and examined with attending. 26 years old female with history of IDDM and many previous admissions for DKA that presented to ED with blood glucose of >800, after she missed dose insulin. she reportedly took 30 units of Humalog prior to arrival to ED. She denies any nausea/vomiting. She endorses severe pain of right tooth, see by dentist yesterday and given script for penicillin which she was unable to hand picker at the pharmacy. She took ibuprofen for pain without relief. She endorses history of DKA due to missing single dose of insulin in the past. History of poor compliance with insulin. She has been seen by Dr. Gallego in the past. ROS: 12 point review of systems negative except for as above. PMH: Bronchitis, IDDM, DKA PSH: SH: Occasional Alcohol;, smoker FH: Unknown Allergies: NKDA Present on Admission - Present on Admission Any Indicators Present on Admission: No Past Patient History - Infectious Disease Hx of Infectious Diseases: None - Tetanus Immunizations Tetanus Immunization: Unknown - Past Medical History & Family History Past Medical History?: Yes - Past Social History Smoking Status: stopped am - CARDIAC Hx Cardiac Disorders: No - PULMONARY Hx Respiratory Disorders: Yes Hx Bronchitis: Yes - NEUROLOGICAL Hx Neurological Disorder: No - HEENT Hx HEENT Problems: No Other/Comment: tootth ache/dental infection - RENAL Hx Chronic Kidney Disease: No - ENDOCRINE/METABOLIC Hx Endocrine Disorders: Yes (dm1) - HEMATOLOGICAL/ONCOLOGICAL Hx Blood Disorders: No Hx AIDS: No Hx Human Immunodeficiency Virus (HIV): No - INTEGUMENTARY Hx Dermatological Problems: No - MUSCULOSKELETAL/RHEUMATOLOGICAL Hx Musculoskeletal Disorders: No Hx Falls: No - GASTROINTESTINAL Hx Gastrointestinal Disorders: No - GENITOURINARY/GYNECOLOGICAL Hx Genitourinary Disorders: No - PSYCHIATRIC Hx Substance Use: No - SURGICAL HISTORY Hx Surgeries: Yes Hx Section: Yes (x2) - ANESTHESIA Hx Anesthesia: Yes Hx Anesthesia Reactions: No Hx Malignant Hyperthermia: No Meds Allergies/Adverse Reactions: Allergies Allergy/AdvReac Type Severity Reaction Status Date / Time No Known Allergies Allergy Verified 11/28/15 15:06 Physical Exam - Constitutional Additional comments: uncomfortable due to pain - Head Exam Head Exam: NORMAL INSPECTION - Eye Exam Eye Exam: Normal appearance - ENT Exam ENT Exam: Mucous Membranes Moist, Normal Oropharynx Additional comments: inspection: missing molar right mandible, no erythema or drainage. - Respiratory Exam Respiratory Exam: NORMAL BREATHING PATTERN - Cardiovascular Exam Cardiovascular Exam: Tachycardia (sinus tachycardia on monitor bedside), REGULAR RHYTHM, +S1, +S2 - GI/Abdominal Exam GI & Abdominal Exam: Soft. absent: Distended, Guarding - Extremities Exam Extremities exam: Positive for: normal inspection. Negative for: pedal edema - Neurological Exam Neurological exam: Alert (crying due to pain of tooth) - Skin Skin Exam: Dry, Intact, Normal Color Results - Vital Signs Recent Vital Signs: Last Vital Signs Temp 98 F 03/19/17 04:00 Pulse 125 H 03/19/17 06:00 Resp 21 03/19/17 06:00 BP 130/78 03/19/17 06:00 Pulse Ox 100 03/19/17 06:00 - Labs Result Diagrams: 03/19/17 04:20 03/19/17 04:20 Labs: Laboratory Results - last 24 hr 03/18/17 03/18/17 03/18/17 21:08 21:30 22:36 WBC RBC Hgb Hct MCV MCH MCHC RDW Plt Count Sodium 136 Potassium 3.6 Chloride 107 Carbon Dioxide 16 L Anion Gap 17 BUN 9 Creatinine 0.5 L Est GFR ( Amer) > 60 Est GFR (Non-Af Amer) > 60 POC Glucose (mg/dL) 114 H 105 Random Glucose 102 Calcium 8.0 L Total Bilirubin AST ALT Alkaline Phosphatase Total Protein Albumin Globulin Albumin/Globulin Ratio Triglycerides Cholesterol LDL Cholesterol Direct HDL Cholesterol Thyroxine (T4) TSH 3rd Generation 03/18/17 03/19/17 03/19/17 23:39 00:52 02:04 WBC RBC Hgb Hct MCV MCH MCHC RDW Plt Count Sodium Potassium Chloride Carbon Dioxide Anion Gap BUN Creatinine Est GFR ( Amer) Est GFR (Non-Af Amer) POC Glucose (mg/dL) 145 H 278 H 351 H Random Glucose Calcium Total Bilirubin AST ALT Alkaline Phosphatase Total Protein Albumin Globulin Albumin/Globulin Ratio Triglycerides Cholesterol LDL Cholesterol Direct HDL Cholesterol Thyroxine (T4) TSH 3rd Generation 03/19/17 03/19/17 03/19/17 03:25 04:20 04:20 WBC 5.9 RBC 3.70 L Hgb 11.2 L Hct 34.1 MCV 92.3 D MCH 30.4 MCHC 33.0 RDW 13.9 Plt Count 249 Sodium 137 Potassium 3.5 L Chloride 106 Carbon Dioxide 16 L Anion Gap 19 BUN 8 Creatinine 0.5 L Est GFR ( Amer) > 60 Est GFR (Non-Af Amer) > 60 POC Glucose (mg/dL) 190 H Random Glucose 114 H Calcium 8.4 Total Bilirubin 0.3 AST 65 H ALT 62 H D Alkaline Phosphatase 78 Total Protein 5.7 L Albumin 3.2 L Globulin 2.5 Albumin/Globulin Ratio 1.3 Triglycerides 176 H Cholesterol 157 LDL Cholesterol Direct 107 HDL Cholesterol 41 Thyroxine (T4) 4.88 L TSH 3rd Generation 4.45 03/19/17 05:19 WBC RBC Hgb Hct MCV MCH MCHC RDW Plt Count Sodium Potassium Chloride Carbon Dioxide Anion Gap BUN Creatinine Est GFR ( Amer) Est GFR (Non-Af Amer) POC Glucose (mg/dL) 137 H Random Glucose Calcium Total Bilirubin AST ALT Alkaline Phosphatase Total Protein Albumin Globulin Albumin/Globulin Ratio Triglycerides Cholesterol LDL Cholesterol Direct HDL Cholesterol Thyroxine (T4) TSH 3rd Generation Assessment & Plan (1) DKA (diabetic ketoacidosis) Assessment and Plan: 26 year old female admitted for DKA, currently has dental infection for which she was taking penicillin. Still in severe pain. Pain control with toradol prn. Monitor BG, on insulin drip, continue IVF. Hga1c :9.8, poor glucose control due to poor compliance. Patient would benefit from insulin pump, she is working on getting as outpatient. Management as per Dr. Gallego, input appreciated. -IVF -insulin drip -monitor BG and lytes and replete -pain control Status: Acute (2) Dental infection Assessment and Plan: pt afebrile, no leukocytosis continue with clindamycin toradol for pain tylenol for fever Status: Acute (3) DVT prophylaxis Assessment and Plan: lovenox Status: Acute <Carlos Roy K - Last Filed: 03/25/17 13:59> Results - Vital Signs Recent Vital Signs: Last Vital Signs Temp 98.4 F 03/20/17 04:00 Pulse 97 H 03/20/17 08:00 Resp 20 03/20/17 08:00 BP 127/78 03/20/17 08:00 Pulse Ox 98 03/20/17 08:00 - Labs Result Diagrams: 03/20/17 05:30 09/02/17 05:30 Assessment & Plan - Assessment and Plan (Free Text) Assessment: Patient was personally seen and examined by me in rounds with residents. Available labs and diagnostic data reviewed. Case, Patient's condition and management plan Discussed with residents in rounds. Agree with resident's progress note. Plan: As ordered.
--- NOTE | 2017-03-19 07:40 | CP.CCUPN ---
<Mary Grace Lopez - Last Filed: 03/19/17 15:11> CCU Subjective - Physician Review Subjective (Free Text): Patient seen and examined at bedside. Reports severe right tooth pain, but would like to attempt PO diet today. Denies chest pain, SOB, abd pain or weakness. 03/19/17 15:11 CCU Objective - Vital Signs / Intake & Output Vital Signs (Last 4 hours): Vital Signs Temp Pulse Resp BP Pulse Ox 03/19/17 06:00 125 H 21 130/78 100 03/19/17 04:00 98 F 93 H 17 120/86 100 Intake and Output (Last 8hrs): Intake & Output 03/18/17 03/19/17 03/19/17 22:59 06:59 14:59 Intake Total 1999 1700 Balance 1999 1700 Intake: IV 1999 1200 Intake, Piggyback 100 Oral 400 Other: # Voids Urine, Voided 1 1 - Physical Exam Head: Positive for: Atraumatic, Normocephalic Pupils: Positive for: PERRL Extroacular Muscles: Positive for: EOMI Conjunctiva: Positive for: Normal Mouth: Positive for: Moist Mucous Membranes, Other (right molar extracted, no erythema or drainage) Neck: Positive for: Normal Range of Motion Respiratory/Chest: Positive for: Clear to Auscultation, Good Air Exchange Cardiovascular: Positive for: Regular Rate and Rhythm Abdomen: Positive for: Normal Bowel Sounds. Negative for: Tenderness Upper Extremity: Positive for: Normal ROM, NORMAL PULSES Lower Extremity: Positive for: NORMAL PULSES Neurological: Positive for: CN II-XII Intact Skin: Positive for: Warm, Normal Color. Negative for: Rashes Psychiatric: Positive for: Alert, Normal Affect, Normal Mood - Medications Active Medications: Active Medications Generic Name Dose Route Start Last Admin Trade Name Freq PRN Reason Stop Dose Admin Acetaminophen 650 mg 03/18/17 19:19 Tylenol 325mg Tab PO Q6H PRN Pain, Mild (1-3) Acetaminophen 650 mg 03/18/17 19:19 Tylenol 325mg Tab PO Q6H PRN Fever >100.4 F Dextrose 0 ml 03/18/17 18:56 Dextrose 50% Inj IV STAT PRN Hyglycemia Protocol Protocol Dextrose 0 gm 03/18/17 18:56 Glutose 15 PO ONCE PRN Hypoglycemia Protocol Protocol Enoxaparin Sodium 40 mg 03/19/17 09:00 Lovenox SC DAILY LANETTE Protocol Glucagon 0 mg 03/18/17 18:56 Glucagen Diagnostic Kit IM STAT PRN Hypoglycemia Protocol Protocol Insulin Human Regular 100 101 mls @ 5.45 mls/hr 03/18/17 19:00 03/18/17 19:36 units/ Sodium Chloride IV 5.45 mls/hr .[id number] LANETTE Administration Protocol 5.4 UNITS/HR Dextrose/Sodium Chloride 1,000 mls @ 150 mls/hr 03/18/17 19:15 03/19/17 02:58 Dextrose 5%/0.45% Ns 1000 Ml IV 03/19/17 08:34 150 mls/hr .[id number] LANETTE Administration Clindamycin Phosphate 600 mg/ 104 mls @ 96.296 mls/hr 03/18/17 19:30 02:57 Sodium Chloride IVPB 96.296 mls/hr Q8H LANETTE Administration Insulin Human Lispro 0 units 03/19/17 07:30 03/19/17 06:46 Humalog SC 8 units ACHS LANETTE Administration Protocol Ketorolac Tromethamine 15 mg 03/19/17 07:37 Toradol IVP Q6 PRN Pain, moderate (4-7) Ondansetron HCl 4 mg 03/18/17 19:55 Zofran Inj IVP Q6 PRN Nausea/Vomiting Oxycodone/Acetaminophen 1 tab 03/18/17 19:55 03/19/17 02:00 Percocet 5/325 Mg Tab PO 1 tab Q6 PRN Administration Pain, moderate (4-7) - Patient Studies Lab Studies: Lab Studies 03/19/17 03/19/17 03/19/17 Range/Units 05:19 04:20 04:20 WBC 5.9 (4.8-10.8) K/uL RBC 3.70 L (3.80-5.20) Mil/uL Hgb 11.2 L (12.0-16.0) g/dL Hct 34.1 (34.0-47.0) % MCV 92.3 D (81.0-99.0) fl MCH 30.4 (27.0-31.0) pg MCHC 33.0 (33.0-37.0) g/dL RDW 13.9 (11.5-14.5) % Plt Count 249 (130-400) K/uL Sodium 137 (132-148) mmol/l Potassium 3.5 L (3.6-5.0) MMOL/L Chloride 106 (98-107) mmol/L Carbon Dioxide 16 L (22-30) mmol/L Anion Gap 19 (10-20) BUN 8 (7-17) mg/dl Creatinine 0.5 L (0.7-1.2) mg/dL Est GFR ( Amer) > 60 Est GFR (Non-Af Amer) > 60 POC Glucose (mg/dL) 137 H (65-110) mg/dL Random Glucose 114 H (65-105) mg/dL Calcium 8.4 (8.4-10.2) mg/dL Total Bilirubin 0.3 (0.2-1.3) mg/dl AST 65 H (14-36) U/L ALT 62 H D (9-52) U/L Alkaline Phosphatase 78 (38-126) U/L Total Protein 5.7 L (6.3-8.2) G/DL Albumin 3.2 L (3.5-5.0) g/dL Globulin 2.5 (2.2-3.9) gm/dL Albumin/Globulin Ratio 1.3 (1.0-2.1) Triglycerides 176 H (0-149) mg/DL Cholesterol 157 (0-199) mg/dL LDL Cholesterol Direct 107 (0-129) mg/dL HDL Cholesterol 41 (30-70) MG/DL Thyroxine (T4) 4.88 L (5.5-11.0) ug/dl TSH 3rd Generation 4.45 (0.46-4.68) mIU/ML 03/19/17 03/19/17 03/19/17 Range/Units 03:25 02:04 00:52 WBC (4.8-10.8) K/uL RBC (3.80-5.20) Mil/uL Hgb (12.0-16.0) g/dL Hct (34.0-47.0) % MCV (81.0-99.0) fl MCH (27.0-31.0) pg MCHC (33.0-37.0) g/dL RDW (11.5-14.5) % Plt Count (130-400) K/uL Sodium (132-148) mmol/l Potassium (3.6-5.0) MMOL/L Chloride (98-107) mmol/L Carbon Dioxide (22-30) mmol/L Anion Gap (10-20) BUN (7-17) mg/dl Creatinine (0.7-1.2) mg/dL Est GFR ( Amer) Est GFR (Non-Af Amer) POC Glucose (mg/dL) 190 H 351 H 278 H (65-110) mg/dL Random Glucose (65-105) mg/dL Calcium (8.4-10.2) mg/dL Total Bilirubin (0.2-1.3) mg/dl AST (14-36) U/L ALT (9-52) U/L Alkaline Phosphatase (38-126) U/L Total Protein (6.3-8.2) G/DL Albumin (3.5-5.0) g/dL Globulin (2.2-3.9) gm/dL Albumin/Globulin Ratio (1.0-2.1) Triglycerides (0-149) mg/DL Cholesterol (0-199) mg/dL LDL Cholesterol Direct (0-129) mg/dL HDL Cholesterol (30-70) MG/DL Thyroxine (T4) (5.5-11.0) ug/dl TSH 3rd Generation (0.46-4.68) mIU/ML 03/18/17 03/18/17 03/18/17 Range/Units 23:39 22:36 21:30 WBC (4.8-10.8) K/uL RBC (3.80-5.20) Mil/uL Hgb (12.0-16.0) g/dL Hct (34.0-47.0) % MCV (81.0-99.0) fl MCH (27.0-31.0) pg MCHC (33.0-37.0) g/dL RDW (11.5-14.5) % Plt Count (130-400) K/uL Sodium 136 (132-148) mmol/l Potassium 3.6 (3.6-5.0) MMOL/L Chloride 107 (98-107) mmol/L Carbon Dioxide 16 L (22-30) mmol/L Anion Gap 17 (10-20) BUN 9 (7-17) mg/dl Creatinine 0.5 L (0.7-1.2) mg/dL Est GFR ( Amer) > 60 Est GFR (Non-Af Amer) > 60 POC Glucose (mg/dL) 145 H 105 (65-110) mg/dL Random Glucose 102 (65-105) mg/dL Calcium 8.0 L (8.4-10.2) mg/dL Total Bilirubin (0.2-1.3) mg/dl AST (14-36) U/L ALT (9-52) U/L Alkaline Phosphatase (38-126) U/L Total Protein (6.3-8.2) G/DL Albumin (3.5-5.0) g/dL Globulin (2.2-3.9) gm/dL Albumin/Globulin Ratio (1.0-2.1) Triglycerides (0-149) mg/DL Cholesterol (0-199) mg/dL LDL Cholesterol Direct (0-129) mg/dL HDL Cholesterol (30-70) MG/DL Thyroxine (T4) (5.5-11.0) ug/dl TSH 3rd Generation (0.46-4.68) mIU/ML 03/18/17 Range/Units 21:08 WBC (4.8-10.8) K/uL RBC (3.80-5.20) Mil/uL Hgb (12.0-16.0) g/dL Hct (34.0-47.0) % MCV (81.0-99.0) fl MCH (27.0-31.0) pg MCHC (33.0-37.0) g/dL RDW (11.5-14.5) % Plt Count (130-400) K/uL Sodium (132-148) mmol/l Potassium (3.6-5.0) MMOL/L Chloride (98-107) mmol/L Carbon Dioxide (22-30) mmol/L Anion Gap (10-20) BUN (7-17) mg/dl Creatinine (0.7-1.2) mg/dL Est GFR ( Amer) Est GFR (Non-Af Amer) POC Glucose (mg/dL) 114 H (65-110) mg/dL Random Glucose (65-105) mg/dL Calcium (8.4-10.2) mg/dL Total Bilirubin (0.2-1.3) mg/dl AST (14-36) U/L ALT (9-52) U/L Alkaline Phosphatase (38-126) U/L Total Protein (6.3-8.2) G/DL Albumin (3.5-5.0) g/dL Globulin (2.2-3.9) gm/dL Albumin/Globulin Ratio (1.0-2.1) Triglycerides (0-149) mg/DL Cholesterol (0-199) mg/dL LDL Cholesterol Direct (0-129) mg/dL HDL Cholesterol (30-70) MG/DL Thyroxine (T4) (5.5-11.0) ug/dl TSH 3rd Generation (0.46-4.68) mIU/ML Laboratory Results - last 24 hr 03/18/17 03/18/17 03/18/17 21:08 21:30 22:36 WBC RBC Hgb Hct MCV MCH MCHC RDW Plt Count Sodium 136 Potassium 3.6 Chloride 107 Carbon Dioxide 16 L Anion Gap 17 BUN 9 Creatinine 0.5 L Est GFR ( Amer) > 60 Est GFR (Non-Af Amer) > 60 POC Glucose (mg/dL) 114 H 105 Random Glucose 102 Calcium 8.0 L Total Bilirubin AST ALT Alkaline Phosphatase Total Protein Albumin Globulin Albumin/Globulin Ratio Triglycerides Cholesterol LDL Cholesterol Direct HDL Cholesterol Thyroxine (T4) TSH 3rd Generation 03/18/17 03/19/17 03/19/17 23:39 00:52 02:04 WBC RBC Hgb Hct MCV MCH MCHC RDW Plt Count Sodium Potassium Chloride Carbon Dioxide Anion Gap BUN Creatinine Est GFR ( Amer) Est GFR (Non-Af Amer) POC Glucose (mg/dL) 145 H 278 H 351 H Random Glucose Calcium Total Bilirubin AST ALT Alkaline Phosphatase Total Protein Albumin Globulin Albumin/Globulin Ratio Triglycerides Cholesterol LDL Cholesterol Direct HDL Cholesterol Thyroxine (T4) TSH 3rd Generation 03/19/17 03/19/17 03/19/17 03:25 04:20 04:20 WBC 5.9 RBC 3.70 L Hgb 11.2 L Hct 34.1 MCV 92.3 D MCH 30.4 MCHC 33.0 RDW 13.9 Plt Count 249 Sodium 137 Potassium 3.5 L Chloride 106 Carbon Dioxide 16 L Anion Gap 19 BUN 8 Creatinine 0.5 L Est GFR ( Amer) > 60 Est GFR (Non-Af Amer) > 60 POC Glucose (mg/dL) 190 H Random Glucose 114 H Calcium 8.4 Total Bilirubin 0.3 AST 65 H ALT 62 H D Alkaline Phosphatase 78 Total Protein 5.7 L Albumin 3.2 L Globulin 2.5 Albumin/Globulin Ratio 1.3 Triglycerides 176 H Cholesterol 157 LDL Cholesterol Direct 107 HDL Cholesterol 41 Thyroxine (T4) 4.88 L TSH 3rd Generation 4.45 03/19/17 05:19 WBC RBC Hgb Hct MCV MCH MCHC RDW Plt Count Sodium Potassium Chloride Carbon Dioxide Anion Gap BUN Creatinine Est GFR ( Amer) Est GFR (Non-Af Amer) POC Glucose (mg/dL) 137 H Random Glucose Calcium Total Bilirubin AST ALT Alkaline Phosphatase Total Protein Albumin Globulin Albumin/Globulin Ratio Triglycerides Cholesterol LDL Cholesterol Direct HDL Cholesterol Thyroxine (T4) TSH 3rd Generation Fingerstick Blood Sugar Results: 387 Review of Systems - Review of Systems All systems: reviewed and no additional remarkable complaints except (for what is mentioned in subjective) Assessment/Plan - Assessment and Plan (Free Text) Assessment: 26 yr old F admitted to ICU for DKA with PMHx of IDDM, Bronchitis and recurrent DKA. 1. DKA, improved 2. Dental infection (right molar) 3. DVT prophylaxis Plan 1. IVF NS 125mls/hr, Moderate carbohydrate PO diet, track repair worker consult appreciated: Insulin Lispro 12units SC AC, Insulin Detemir 24 units SC HS 2. Clindamycin, Toradol PRN for pain, Tylenol PRN for fever 3. Lovenox 40mg SC QD - Date & Time Date: 03/19/17 Time: 08:20 <Mikie Mota - Last Filed: 03/19/17 19:19> Assessment/Plan - Assessment and Plan (Free Text) Assessment: Attestation: Patient seen and examined at the bedside with Resident Dr. Maris Lopez; and I agree with her outline of plans and management as documented, and as discussed on AM rounds reflecting my review of all applicable clinical data, and participation in the care of the patient throughout the day in ICU; today, March 19, 2017.
--- NOTE | 2017-03-19 07:44 | CON ---
ENDOCRINOLOGY CONSULT HISTORY OF PRESENT ILLNESS: This is a 26-year-old female with known history of type 1 insulin-dependent diabetes with very poor adherence to the insulin regimen and now admitted with marked hyperglycemic accelerations and supervening diabetic ketoacidosis and is being referred now for diabetic evaluation and management. PAST MEDICAL HISTORY: As mentioned above, history of type 1 insulin dependent diabetes, currently on a combination therapy of Toujeo given as 30 units at bedtime with Humalog given as 10 units t.i.d. p.r.n. as noted. The patient has been very poorly compliant with glucose monitoring at home and also with drug omission as noted recently thereof. She has also multiple admissions for recurrent diabetic ketoacidosis related to drug omission as noted. FAMILY HISTORY: Positive for diabetes and hypertension. SOCIAL HISTORY: The patient has supportive family. No known substance use. Admits to occasional cigarette smoking. The patient does have two young children. REVIEW OF SYSTEMS: As mentioned above. Admits to generalized body weakness with easy fatigability and tiredness and progressive bouts of dizziness and lightheadedness, worse on the day of admission. No chest pains or palpitations or PND. Her oral intake is variable with nausea, dyspepsia and intermittent vomiting episodes. Also, admits to marked polyuria and nocturia, polydipsia as noted. PHYSICAL EXAM: This is an average built female in no apparent distress with a blood pressure of 140/80, pulse of 70 beats per minute and regular. Temperature 98, respirations 20, height is 5 feet 3 inches, weight is 120 pounds. HEENT: Head normocephalic. Eyes anicteric with pink conjunctivae. Funduscopy not possible at this time. Ears, nose and throat otherwise normal. Neck is supple. Thyroid gland is normal in size. No carotid bruits or cervical adenopathy. Cardiopulmonary: Some adynamic precordium. S1, S2 is rapid and regular. Lungs are clear to auscultation. Abdomen is flat, soft with positive bowel sounds. Extremities: No peripheral edema. Pulses are +2 bilaterally. LABORATORY: Chemistry showed a BUN of 30, sodium 134, potassium 4.4, chloride 94, CO2 is 9, glucose is 674 and creatinine is 0.7. Her subsequent glucose level now is 145 mg/dL. ASSESSMENT: This is a 26-year-old female with uncontrolled and decompensated type 1 insulin dependent diabetes presenting here with diabetic ketoacidosis and dehydration and is now being referred for diabetic evaluation and management. There is a very strong component of very poor adherence to the insulin regimen and home glucose monitoring as noted with frequent admissions for recurrent DKA. Plan of management as discussed lengthily with the patient at bedside. The imperative need for tighter metabolic control cannot but be overemphasized especially in the light of underlying poorly controlled type 1 diabetes with frequent DKA admissions as noted thereof. The high potential risks for microvascular complications has been discussed once again with the patient at bedside. We will initiate an intensive insulin therapy with an insulin drip infusion as ordered and a low-dose algorithm has been also followed through at this point in time. We will initiate vigorous IV hydration to supplement and replenish the lost fluid and electrolytes as noted. We will reinforce diabetic education and dietary instructions also at the time of this admission. We will obtain a hemoglobin A1c to compare my prior glycemic control, and baseline thyroid function studies will be ordered. We will follow and advise accordingly. Monet Gallego MD
[2017-03-19] MEDS ORDERED: Pneumococcal 23-Valent Vaccine IM ONE (10:00)
[2017-03-19] MEDS: Enoxaparin 40 mg Syringe SC SCH (10:51)
[2017-03-19] MEDS ORDERED: Insulin Lispro (humaLOG) 100 Units/ml Inj SC SCH (11:41)
[2017-03-19 11:44] LABS: CORTISOL AM 4.5 ug/dL (4.46-22.7)
[2017-03-19 12:27] LABS: URINE BILIRUBIN NEGATIVE (NEGATIVE); URINE BLOOD NEGATIVE (NEGATIVE); URINE CALCIUM OXALATE CRYSTALS OCC /hpf (<OCC); URINE COLOR YELLOW (YELLOW); URINE GLUCOSE (UA) >=500 mg/dL (Normal); URINE KETONE 20 mg/dL (NEGATIVE); URINE LEUKOCYTE ESTERASE TRACE Leu/uL (Negative); URINE PROTEIN NEGATIVE (NEGATIVE); URINE UROBILINOGEN 0.2-1.0 mg/dL (0.2-1.0); WBC URINE 5 /hpf (0-5)
--- NOTE | 2017-03-19 12:51 | CARD ---
APPROVED REPORT EKG Measurement Heart [id number] <Conclusion> Normal sinus rhythm Possible Left atrial enlargement Borderline ECG
[2017-03-19] MEDS ORDERED: Sodium Chloride 0.45% 1,000 ML IV SCH (13:30)
--- NOTE | 2017-03-19 20:02 | PN ---
ENDO FOLLOWUP NOTE LOCATION: ICU, room 430. SUBJECTIVE: This is a 26-year-old female with recent uncontrolled type 1 insulin-dependent diabetes, now being followed closely for metabolic management. Her glycemic levels are fluctuating but much improved at this time. She actually presented here with diabetic ketoacidosis and dehydration. She was placed on an insulin drip infusion overnight as noted. LABORATORY DATA: The glucose levels today have ranged from 137 to 316 and 387 mg/dL. Her latest chemistries showed a BUN of 8, sodium 137, potassium , chloride 106, CO2 of 16, glucose 114, and creatinine 0.5. So at this time, we will safely discontinue her insulin drip infusion and switch her over to a basal and bolus insulin drug combination which is more physiological to optimize her metabolic control. We will start her with Levemir, since we do not carry Toujeo, at 20 units subcu at bedtime daily to start tonight. We will also add Humalog given at 12 units subcu t.i.d. before meals as ordered. We will modify the coverage scale to obviate hypoglycemia and detailed orders have been given. We will follow and advise accordingly. Monet Gallego MD
[2017-03-19] MEDS: Potassium Chloride 20 MEQ in Sodium Chloride 0.45% 1,000 ML IV SCH (20:55)
[2017-03-19] MEDS ORDERED: Insulin Detemir 100 Units/ml Inj SC SCH (22:00)
[2017-03-19] MEDS ORDERED: Insulin Detemir 100 Units/ml Inj SC ONE (22:03)
[2017-03-20] MEDS: Clindamycin 600 MG in Sodium Chloride 0.9% 100 ML IVPB SCH (04:05)
[2017-03-20 05:46] VITALS: TEMP 98.4
[2017-03-20] MEDS ORDERED: Dextrose 50% SYRINGE Inj (50 ml) ONE (05:58)
[2017-03-20 06:16] LABS: BASO # 0.1 K/uL (0.0-0.2); BASO % 1.2 % (0.0-2.0); EOS # 0.3 K/uL (0.0-0.7); EOS % 5.3 % (0.0-4.0); LYMPH # 2.4 K/uL (1.0-4.3); LYMPH % 51.2 % (20.0-40.0); MEAN CELL VOLUME 91.3 fl (81.0-99.0); MEAN CORPUSCULAR HEMOGLOBIN 30.2 pg (27.0-31.0); MEAN CORPUSCULAR HGB CONC 33.1 g/dL (33.0-37.0); MEAN PLATELET VOLUME 6.7 fl (7.2-11.7); MONO # 0.3 K/uL (0.0-0.8); MONO % 7.4 % (0.0-10.0); NEUT # 1.6 K/uL (1.8-7.0); NEUT % 34.9 % (50.0-75.0); NRBC % 0.1 % (0.0-0.0); RED CELL DISTRIBUTION WIDTH 13.6 % (11.5-14.5); WHITE BLOOD COUNT 4.7 K/uL (4.8-10.8)
[2017-03-20] MEDS ORDERED: Glucagon Recombinant 1 mg Inj IM STA ×2 (06:30→07:00)
[2017-03-20 07:06] LABS: ALB/GLOB RATIO 1.2 (1.0-2.1); ALKALINE PHOSPHATASE 84 U/L (38-126); ALT/SGPT 73 U/L (9-52); AST/SGOT 97 U/L (14-36); BILIRUBIN,TOTAL 0.2 mg/dl (0.2-1.3); BLOOD UREA NITROGEN 9 mg/dl (7-17); CALCIUM 8.6 mg/dL (8.4-10.2); CARBON DIOXIDE 21 mmol/L (22-30); CHLORIDE 107 mmol/L (98-107); GFR AFRICAN-AMERICAN > 60; GLUCOSE,RANDOM 45 mg/dL (65-105); POTASSIUM 3.5 MMOL/L (3.6-5.0); SODIUM 138 mmol/l (132-148); TOTAL PROTEIN 5.8 G/DL (6.3-8.2)
--- NOTE | 2017-03-20 07:58 | PN ---
DATE: 03/20/2017 SUBJECTIVE: The patient is seen and examined. Interim events noted. Consults noted and appreciated. Washer Machine and endocrinology consult and intervention noted and appreciated The patient needs an intensive care unit. The patient feels much better. The patient is awake, responsive. Doing her ADLs without any assistance. No chest pain. No shortness of breath. PHYSICAL EXAMINATION GENERAL: The patient is in no acute distress. VITAL SIGNS: Stable. HEART: S1, S2 normal and regular. LUNGS: Good bilateral air entry. ABDOMEN: Soft, nontender. EXTREMITIES: No edema. No calf swelling. No tenderness. No acute ischemia. REGISTERED ART THERAPIST: Essentially unchanged. DIAGNOSTIC DATA: Available diagnostic data reviewed. IMPRESSION: Overall, the patient's general medical condition is stable. The patient had low Accu-Chek today, but the patient is clinically much improved. PLAN: As ordered. Carlos Roy MD
[2017-03-20] MEDS: Insulin Lispro (humaLOG) 100 Units/ml Inj SC SCH ×2 (08:27→08:28)
[2017-03-20] MEDS: Potassium Chloride 20 MEQ in Sodium Chloride 0.45% 1,000 ML IV SCH (08:29)
[2017-03-20] MEDS: Enoxaparin 40 mg Syringe SC SCH (08:29)
[2017-03-20 09:02] VITALS: BP 127/78; PULSE 97; RESP 20; O2SAT 98
[2017-03-20] MEDS ORDERED: Insulin Lispro (humaLOG) 100 Units/ml Inj SC SCH (11:30)
--- NOTE | 2017-03-20 15:09 | PN ---
DATE: 03/20/2017 ENDOCRINOLOGY FOLLOWUP NOTE LOCATION: Concepcion is in ICU Room 430. SUBJECTIVE: This is a 26-year-old female with recent uncontrolled type 1 insulin dependent diabetes now being followed closely for metabolic management. Her glycemic levels are fluctuating, but improved as noticed. Her oral intake is quite variable as per the nursing staff and in fact had a single bout of symptomatic hypoglycemia last night as noted. This morning also had a low normal glycemic profile of 33 mg/dL. A repeat glucose levels have raised from 105 to 310 with extremes of rebound hyperglycemic acceleration as noted thereof. OBJECTIVE: Her latest chemistry showed a BUN of 9, sodium of 138, potassium of 3.5, chloride of 107, CO2 of 21, glucose of 45, and creatinine of 0.5. IMPRESSION AND PLAN: So, at this time we will modify her basilar bolus insulin regimen and lower the Levemir to 16 units subcutaneous at bedtime daily to start tonight. We will also modify the Humalog given before each meal to a dose of 8 units subcutaneously t.i.d. before meals as ordered. We will titrate his meds as indicated to optimize metabolic control. We will obtain serial chemistries and supplement accordingly as needed. In the meantime, we will continue the same IV fluids with extra potassium supplementation as added to run 25 mL per hour as ordered. We will obtain serial chemistries and supplement accordingly as needed. We will also reinforce diabetic education and dietary instructions at the time of this admission. The patient is actually supposed to be starting anytime now on the Medtronic insulin pump, which will give her continuous basal and bolus insulin regimen as expected. We actually called [employer] yesterday and her Medtronic insulin pump is being processed and will be delivered at a time next week as noted. This will give the patient a greater chance to achieve a more optimal and near normal euglycemia. We will follow. Monet Gallego MD
[2017-03-20] MEDS ORDERED: Insulin Detemir 100 Units/ml Inj SC SCH (22:00)
[2017-03-20] MEDS ORDERED: Insulin Detemir 100 Units/ml Inj SC ONE (22:03)
== END 2017-03-20 11:00 | disposition left against medical advice (07) | DRG 295 ==
LOC: H.ER 16:45 → H.ERHOLD 19:19 → H.ICU/CCU 22:32 → H.MEDSURG1 03-20 10:53
PROVIDERS: ADMIT Internal Medicine; ATTEND Internal Medicine
DX: E10.10 Type 1 diabetes mellitus with ketoacidosis without coma (principal); E10.649 Type 1 diabetes mellitus with hypoglycemia without coma; E86.0 Dehydration; I10 Essential (primary) hypertension; K04.7 Periapical abscess without sinus; Z79.4 Long term (current) use of insulin; F17.210 Nicotine dependence, cigarettes, uncomplicated; Z91.19 Patient's noncompliance with other medical treatment and regimen

== ENCOUNTER 2017-03-20 15:55 | Emergency (ER) | payer OTHER ==
[2017-03-20 15:56] VITALS: BMI 20.7
[2017-03-20 16:02] VITALS: BP 147/92; PULSE 85; RESP 18; TEMP 98.1; O2SAT 99
--- NOTE | 2017-03-20 16:34 | ED PDOC ---
HPI: Dental Pain/Injury Time Seen by Provider: 03/20/17 16:05 Chief Complaint (Nursing): Dental Pain Chief Complaint (Provider): dental pain History/Exam Limitations: no limitations Onset/Duration Of Symptoms: Days (3x weeks) Current Symptoms Are (Timing): Still Present Severity: Moderate Additional Complaint(s): 26 year old female with a pertinent medical history of diabetes presents to the ED with complaints of dental pain that started 3x weeks ago. She reports that she has already contacted her dentist for an appointment, but was unable to schedule a root canal until April 12. She reports that her dentist prescribed penicillin and tramadol for the pain, and yesterday she had high blood sugar so she came to the ED for evaluation. She was admitted overnight for DKA, and this morning her labs were normal and she was told that she would be discharged later today, but left early because she had "things to do". She was treated with penicillin and percocet, but she stated that the percocet was too strong and made her sleepy. Patient forgot to obtain her prescription for pain prior to discharge, and later developed pain in her lower back teeth which is what prompted her ED visit today. PMD: not provided. Past Medical History Reviewed: Historical Data, Nursing Documentation, Vital Signs Vital Signs: Last Vital Signs Temp 98.1 F 03/20/17 16:00 Pulse 85 03/20/17 16:00 Resp 18 03/20/17 16:00 BP 147/92 H 03/20/17 16:00 Pulse Ox 99 03/20/17 16:00 - Medical History PMH: Diabetes (Type 1) Denies: HIV, Chronic Kidney Disease - Surgical History Surgical History: - Family History Family History: States: Unknown Family Hx - Social History Current smoker - smoking cessation education provided: Yes Alcohol: None Drugs: Denies - Immunization History Hx Tetanus Toxoid Vaccination: Yes Hx Influenza Vaccination: No Hx Pneumococcal Vaccination: No - Home Medications Home Medications: Ambulatory Orders Medication Instructions Recorded Amoxicillin [Amoxil 500 mg Cap] 500 mg PO BID 01/04/17 Ibuprofen [Motrin Tab] 800 mg PO BID PRN 01/04/17 Insulin Lispro [humALOG] 10 - 20 units SC TIDPC 01/04/17 Insulin Detemir [Levemir] 20 unit SC HS #1 dev 01/05/17 Insulin Lispro [Humalog Kwikpen 10 unit SQ ACTID #1 insuln.pen 01/05/17 U-100] Penicillin VK [Penicillin VK Tab] 500 mg PO BID 10 Days 03/20/17 traMADol [Ultram] 50 mg PO Q6H PRN #15 tab 03/20/17 - Allergies Allergies/Adverse Reactions: Allergies Allergy/AdvReac Type Severity Reaction Status Date / Time No Known Allergies Allergy Verified 01/04/17 03:31 Review of Systems ROS Statement: Except As Marked, All Systems Reviewed And Found Negative ENT: Positive for: Other (lower back teeth pain) Physical Exam - Reviewed Nursing Documentation Reviewed: Yes Vital Signs Reviewed: Yes - Physical Exam Appears: Positive for: Well, Non-toxic, No Acute Distress Head Exam: Positive for: ATRAUMATIC, NORMOCEPHALIC Skin: Positive for: Normal Color, Warm, Dry ENT: Positive for: Normal ENT Inspection, Other (teeth: back bilateral dental decay) Respiratory: Positive for: Normal Breath Sounds. Negative for: Respiratory Distress Neurologic/Psych: Positive for: Alert, Oriented (3x) - ECG O2 Sat by Pulse Oximetry: 99 (RA) Pulse Ox Interpretation: Normal Medical Decision Making Medical Decision Makin:05 Initial impression: 26 year old female with dental pain. Scribe Attestation: Documented by Aria Balderrama, acting as a scribe for Kathi Vivas PA-C. Provider Scribe Attestation: All medical record entries made by the Scribe were at my direction and personally dictated by me. I have reviewed the chart and agree that the record accurately reflects my personal performance of the history, physical exam, medical decision making, and the department course for this patient. I have also personally directed, reviewed, and agree with the discharge instructions and disposition. Disposition - Clinical Impression Clinical Impression: Dental caries - Patient ED Disposition Is Patient to be Admitted: No - Disposition Disposition: Routine/Home Disposition Time: 16:34 Condition: FAIR Prescriptions: Penicillin VK [Penicillin VK Tab] 500 mg PO BID 10 Days traMADol [Ultram] 50 mg PO Q6H PRN #15 tab PRN Reason: Pain Instructions: Dental Caries (ED)
== END 2017-03-20 16:38 | disposition home or self-care (01) ==
LOC: H.ER 15:55 → MERGE 15:55 → H.ER 16:38
DX: K02.9 Dental caries, unspecified (principal)

== ENCOUNTER 2017-04-14 22:38 | Inpatient (IN) | payer OTHER ==
[2017-04-14 22:38] VITALS: BMI 21.2
[2017-04-14] MEDS ORDERED: Sodium Chloride 0.9% 2,000 ML IV SCH (23:00)
[2017-04-14 23:23] LABS: BASO # 0.1 K/uL (0.0-0.2); BASO % 1.7 % (0.0-2.0); EOS # 0.1 K/uL (0.0-0.7); EOS % 2.8 % (0.0-4.0); HEMATOCRIT 38.1 % (34.0-47.0); LYMPH # 1.5 K/uL (1.0-4.3); LYMPH % 30.4 % (20.0-40.0); MEAN CELL VOLUME 93.6 fl (81.0-99.0); MEAN CORPUSCULAR HEMOGLOBIN 29.8 pg (27.0-31.0); MEAN CORPUSCULAR HGB CONC 31.9 g/dL (33.0-37.0); MEAN PLATELET VOLUME 7.5 fl (7.2-11.7); MONO # 0.4 K/uL (0.0-0.8); MONO % 8.3 % (0.0-10.0); NEUT # 2.8 K/uL (1.8-7.0); NEUT % 56.8 % (50.0-75.0); NRBC % 0.2 % (0.0-0.0); WHITE BLOOD COUNT 4.9 K/uL (4.8-10.8)
[2017-04-14 23:29] LABS: BLOOD UREA NITROGEN 17 mg/dl (7-17); CALCIUM 8.6 mg/dL (8.4-10.2); CHLORIDE 98 mmol/L (98-107); GFR AFRICAN-AMERICAN > 60; MAGNESIUM 1.8 MG/DL (1.6-2.3); POTASSIUM 4.8 MMOL/L (3.6-5.0); SODIUM 135 mmol/l (132-148); VENOUS BLOOD GAS BASE EXCESS -13.8 mmol/L (0.0-2.0); VENOUS BLOOD GAS PCO2 27 mmHg (40-60); VENOUS BLOOD PH 7.25 (7.32-7.43)
[2017-04-14 23:31] LABS: CARBON DIOXIDE 10 mmol/L (22-30)
--- NOTE | 2017-04-14 23:32 | ED PDOC ---
Hyperglycemia/Hypoglycemia Time Seen by Provider: 04/14/17 22:45 Chief Complaint (Nursing): High Blood Sugar Chief Complaint (Provider): High blood sugar History Per: Patient History/Exam Limitations: no limitations Onset/Duration Of Symptoms: Days (x1) Current Diabetic Medications: Insulin : The patient does not have any of the infectious symptoms listed except for those marked. Additional Complaint(s): Concepcion Zuniga is a 26 year old female, with a past medical history of insulin dependent diabetes, who presents to the emergency department via EMS complaining of high blood sugar associated with dizziness onset for a couple of days. Patient has a history of multiple admissions of DKA. She states that at the beginning of her period her blood sugar spiked despite having taken insulin. She missed one dose today and does report polydipsia and polyuria. Patient states symptoms are consistent with how she feels when she is hyperglycemic. She denies any chest pain or shortness of breath. PMD: Monet Gallego Past Medical History Reviewed: Historical Data, Nursing Documentation, Vital Signs Vital Signs: Last Vital Signs Temp 97.8 F 04/14/17 22:42 Pulse 78 04/14/17 22:42 Resp 18 04/14/17 22:42 BP 102/66 04/14/17 22:42 Pulse Ox 99 04/14/17 22:42 - Medical History PMH: Bronchitis, Diabetes Denies: Anxiety, Bipolar Disorder, Depression, HIV, Paranoia, Post Traumatic Stress Disorder, Chronic Kidney Disease, Schizophrenia - Surgical History Surgical History: - Family History Family History: States: Unknown Family Hx - Social History Alcohol: Social (wine) Drugs: Denies - Immunization History Hx Tetanus Toxoid Vaccination: No Hx Influenza Vaccination: No Hx Pneumococcal Vaccination: No - Home Medications Home Medications: Ambulatory Orders Medication Instructions Recorded Insulin Lispro [humALOG] 10 unit SC ASDIR 11/05/16 Insulin Lispro [humALOG] 20 - 30 unit SC ACTID 11/05/16 Amoxicillin [Amoxil 500 mg Cap] 500 mg PO BID 01/04/17 Ibuprofen [Motrin Tab] 800 mg PO BID PRN 01/04/17 Insulin Lispro [humALOG] 10 - 20 units SC TIDPC 01/04/17 Insulin Detemir [Levemir] 20 unit SC HS #1 dev 01/05/17 Insulin Lispro [Humalog Kwikpen 10 unit SQ ACTID #1 insuln.pen 01/05/17 U-100] Insulin Glargine,Hum.rec.anlog 30 unit SC HS 03/18/17 [Staradonis Mickimary] Penicillin VK [Penicillin VK Tab] 500 mg PO BID 10 Days tab 03/20/17 traMADol [Ultram] 50 mg PO Q6H PRN #15 tab 03/20/17 - Allergies Allergies/Adverse Reactions: Allergies Allergy/AdvReac Type Severity Reaction Status Date / Time No Known Allergies Allergy Verified 11/28/15 15:06 Review of Systems ROS Statement: Except As Marked, All Systems Reviewed And Found Negative Constitutional: Positive for: Other (Polydipsia) Cardiovascular: Negative for: Chest Pain Respiratory: Negative for: Shortness of Breath Genitourinary Female: Positive for: Other (Polyuria) Neurological: Positive for: Dizziness Physical Exam - Reviewed Nursing Documentation Reviewed: Yes Vital Signs Reviewed: Yes - Physical Exam Appears: Positive for: Well, Non-toxic, No Acute Distress Skin: Positive for: Normal Color, Warm, Dry Eye Exam: Positive for: EOMI, Normal appearance, PERRL Neck: Positive for: Normal, Supple Cardiovascular/Chest: Positive for: Regular Rate, Rhythm. Negative for: Murmur Respiratory: Positive for: Normal Breath Sounds. Negative for: Respiratory Distress Gastrointestinal/Abdominal: Positive for: Normal Exam, Bowel Sounds, Soft. Negative for: Tenderness Back: Positive for: Normal Inspection. Negative for: L CVA Tenderness, R CVA Tenderness Extremity: Positive for: Normal ROM. Negative for: Pedal Edema, Deformity Neurologic/Psych: Positive for: Alert, Oriented. Negative for: Motor/Sensory Deficits - Laboratory Results Result Diagrams: 04/14/17 23:16 04/14/17 23:16 - ECG O2 Sat by Pulse Oximetry: 99 (RA) Pulse Ox Interpretation: Normal - Critical Care Total Time (In Min): 60 Medical Decision Making Medical Decision Making: Initial Impression: DKA Initial Plan: --VBG Shock Panel --EKG --Basic Metabolic Panel --Magnesium --Urine --CBC w/ differential --Chest portable [RAD] --NS IV 2,000 ml @ 1,000mls/hr --Urinalysis --reevaluation 1200: Pt. has DKA based on labs, insulin drip initiated. Attempted to reach Dr. Roy twice who admitted previously (however not production zone leader). Spoke with Dr. Tucker (production zone leader medical service) who accepts admission. Spoke with Dr. Trevizo ( hospitalist) for ICU consult. Scribe Attestation: Documented by Juan Falocn, acting as a scribe for Farhat Lester MD Provider Scribe Attestation: All medical record entries made by the Scribe were at my direction and personally dictated by me. I have reviewed the chart and agree that the record accurately reflects my personal performance of the history, physical exam, medical decision making, and the department course for this patient. I have also personally directed, reviewed, and agree with the discharge instructions and disposition. Disposition - Clinical Impression Clinical Impression: DKA (diabetic ketoacidoses) - Disposition Disposition Time: 00:27 Condition: STABLE Forms: [employer] (Thai)
[2017-04-14] MEDS ORDERED: Dextrose 50% SYRINGE Inj (50 ml) IV PRN (23:33)
[2017-04-14] MEDS ORDERED: Glucagon Recombinant 1 mg Inj IM PRN (23:33)
[2017-04-14 23:40] LABS: GLUCOSE,RANDOM 635 mg/dL (65-105)
[2017-04-15] MEDS ORDERED: Insulin Regular 100 units/ml IV STA (00:12)
[2017-04-15] MEDS ORDERED: Insulin Regular 100 units/ml ONE (00:31)
[2017-04-15 00:36] LABS: RBC URINE 176 /hpf (0-3); URINE BACTERIA RARE (<OCC); URINE BILIRUBIN NEGATIVE (NEGATIVE); URINE BLOOD LARGE (NEGATIVE); URINE COLOR RED (YELLOW); URINE GLUCOSE (UA) >=500 mg/dL (Normal); URINE KETONE 80 mg/dL (NEGATIVE); URINE LEUKOCYTE ESTERASE TRACE Leu/uL (Negative); URINE PROTEIN 100 mg/dL (NEGATIVE); URINE UROBILINOGEN 0.2-1.0 mg/dL (0.2-1.0); WBC URINE 6 /hpf (0-5)
[2017-04-15] MEDS: Insulin Regular 100 UNITS in Sodium Chloride 0.9% 100 ML IV SCH ×2 (00:49→02:24)
[2017-04-15] MEDS ORDERED: Sodium Chloride 0.9% 1,000 ML IV SCH ×2 (01:00)
--- NOTE | 2017-04-15 01:38 | CP.PCM.CON ---
History of Present Illness - History of Present Illness History of Present Illness: CC: Lethargy This is a 26-year-old female with a past medical history of type 1 diabetes mellitus, insulin-dependent, and bronchitis, with no other reported medical problems, who presents to the emergency department by ambulance complaining of hyperglycemia and lethargy, progressively getting worse over the past 2 days. The patient also reports nausea without vomiting along with polydipsia and polyuria. She states that she drank over a gallon of water today. She has had multiple admissions for DKA in the past and she states that these symptoms are similar to when she has had DKA before. The patient denies any other symptoms. She states that she has been compliant with her insulin regimen. In the emergency department, the patient's vitals were found to be unremarkable. However her laboratory results reveal findings consistent with diabetic ketoacidosis, with an anion gap of 32, glucose level of 732, PCO2 of 27, HCO3 of 13.6, and chloride level 95. Her potassium level is normal at 4.8 and magnesium level is also normal. Her renal function appears normal. Urinalysis shows greater than 500 glucose, large urine blood, 176 urine red blood cells, and 6 microscopic WBC. However there is no evidence of infection. Chest x-ray is unremarkable as well as her EKG. Given the patient's severity and acuity of illness, with risk of deterioration, the patient is to be admitted to the intensive care unit for close monitoring and management of her acute diabetic ketoacidosis.Patient denies chest pain, shortness of breath, fevers, chills, vomiting, diarrhea, headache. Rest of ROS as below. All of the patient's and/or family's questions were answered at the bedside. Review of Systems - Hematologic/Lymphatic Additional comments: GENERAL/CONSTITUTIONAL: The patient admits to fatigue and lethargy. The patient denies fever, weight gain or weight loss. HEAD, EYES, EARS, NOSE AND THROAT: Eyes - The patient denies pain, redness, loss of vision, double or blurred vision, flashing lights or spots, dryness, Ears, nose, mouth and throat. The patient denies ringing in the ears, loss of hearing, nosebleeds, loss of sense of smell, dry sinuses, sinusitis, post nasal drip, CARDIOVASCULAR: The patient denies chest pain, chest pressure, or irregular heartbeats, RESPIRATORY: The patient denies chronic dry cough, coughing up blood, coughing up mucus, wheezing, or shortness of breath. GASTROINTESTINAL: The patient admits to decreased appetite, nausea, denies vomiting, vomiting blood or coffee ground material, heartburn, regurgitation, diarrhea, constipation, gas, blood in the stools, black tarry stools. GENITOURINARY: Admits to frequency. The patient denies difficult urination, pain or burning with urination, blood in the urine, or urgency MUSCULOSKELETAL: The patient denies arm, buttock, thigh or calf cramps. No joint or muscle pain. No muscle weakness or tenderness. No joint swelling, neck pain, back pain. SKIN: The patient denies easy bruising, skin redness, skin rash, hives, sensitivity to sun exposure, tightness, nodules or bumps, hair loss, color changes in the hands or feet with cold. NEUROLOGIC: The patient denies headache, dizziness, fainting, muscle spasm, loss of consciousness, sensitivity or pain in the hands and feet or memory loss. PSYCHIATRIC: The patient denies anxiety, depression, or thoughts of suicide. ENDOCRINE: Admits to polyuria and polydipsia. The patient denies intolerance to hot or cold temperature, flushing, fingernail changes, increased salt intake HEMATOLOGIC/LYMPHATIC: The patient denies anemia, bleeding tendency or clotting tendency. ALLERGIC/IMMUNOLOGIC: The patient denies rhinitis, asthma, skin sensitivity, latex allergies or sensitivity. Past Patient History - Infectious Disease Hx of Infectious Diseases: None - Tetanus Immunizations Tetanus Immunization: Unknown - Past Medical History & Family History Past Medical History?: Yes - Past Social History Alcohol: Social (wine) Drugs: Denies - CARDIAC Hx Cardiac Disorders: No - PULMONARY Hx Bronchitis: Yes - NEUROLOGICAL Hx Neurological Disorder: No - HEENT Hx HEENT Problems: No - RENAL Hx Chronic Kidney Disease: No - ENDOCRINE/METABOLIC Hx Endocrine Disorders: Yes (dm1) - HEMATOLOGICAL/ONCOLOGICAL Hx Human Immunodeficiency Virus (HIV): No - INTEGUMENTARY Hx Dermatological Problems: No - MUSCULOSKELETAL/RHEUMATOLOGICAL Hx Falls: No - GASTROINTESTINAL Hx Gastrointestinal Disorders: No - GENITOURINARY/GYNECOLOGICAL Hx Genitourinary Disorders: No - PSYCHIATRIC Hx Anxiety: No Hx Bipolar Disorder: No Hx Depression: No Hx Paranoia: No Hx Post Traumatic Stress Disorder: No Hx Schizophrenia: No - SURGICAL HISTORY Hx Surgeries: Yes Hx Section: Yes (x2) Other/Comment: rt thigh abcess I&D (2006) / insulin pump - ANESTHESIA Hx Anesthesia: Yes Hx Anesthesia Reactions: No Hx Malignant Hyperthermia: No Meds Allergies/Adverse Reactions: Allergies Allergy/AdvReac Type Severity Reaction Status Date / Time No Known Allergies Allergy Verified 11/28/15 15:06 - Medications Medications: Current Medications Dextrose (Dextrose 50% Inj) 0 ml IV STAT PRN; Protocol PRN Reason: Hyglycemia Protocol Dextrose (Glutose 15) 0 gm PO ONCE PRN; Protocol PRN Reason: Hypoglycemia Protocol Glucagon (Glucagen Diagnostic Kit) 0 mg IM STAT PRN; Protocol PRN Reason: Hypoglycemia Protocol Sodium Chloride (Sodium Chloride 0.9%) 2,000 mls @ 1,000 mls/hr IV .Q2H LANETTE Stop: 04/15/17 22:58 Last Admin: 04/15/17 00:28 Dose: 1,000 mls/hr Insulin Human Regular 100 (units/ Sodium Chloride) 101 mls @ 5.86 mls/hr IV .[id number] LANETTE; 0.1 UNITS/KG/HR PRN Reason: Protocol Last Admin: 04/15/17 00:49 Dose: 5.86 mls/hr Sodium Chloride (Sodium Chloride 0.9%) 1,000 mls @ 300 mls/hr IV .[id number] LANETTE Physical Exam - Additional Findings Additional findings: EXAM: Vitals stable and reviewed GEN: WDWN, alert but a little lethargic, cooperative HEENT: NCAT, PERRL, EOMI Neck: supple, no lymphadenopathy CARDIO: +S1S2, RRR, NO M/R/G LUNG: CTAB, NO W/R/R ABD: soft, NT, ND, no masses, no HSM EXT: no edema, pedal pulses Neuro: AAOx3, Strength equal, bilateral UE/LE Psych: normal mood, normal affect Results - Vital Signs Recent Vital Signs: Last Vital Signs Temp 98.2 F 04/15/17 00:55 Pulse 90 04/15/17 00:57 Resp 22 04/15/17 00:57 BP 112/57 L 04/15/17 00:57 Pulse Ox 98 04/15/17 00:57 - Labs Result Diagrams: 04/14/17 23:16 04/14/17 23:16 Labs: Laboratory Results - last 24 hr 04/14/17 04/14/17 04/14/17 23:16 23:16 23:16 WBC 4.9 RBC 4.07 Hgb 12.2 Hct 38.1 MCV 93.6 D MCH 29.8 MCHC 31.9 L RDW 14.0 Plt Count 376 D MPV 7.5 Neut % (Auto) 56.8 Lymph % (Auto) 30.4 Wilkin % (Auto) 8.3 Eos % (Auto) 2.8 Baso % (Auto) 1.7 Neut # 2.8 Lymph # 1.5 Wilkin # 0.4 Eos # 0.1 Baso # 0.1 pO2 50 VBG pH 7.25 L VBG pCO2 27 L VBG HCO3 13.6 VBG Total CO2 12.6 L VBG O2 Sat (Calc) 88.4 H VBG Base Excess -13.8 L VBG Potassium 5.2 Sodium 135 133.0 Chloride 98 95.0 L Glucose 732 H* Lactate 1.6 FiO2 21.0 Crit Value Called To aisha Lester md Crit Value Called By Sudeep chandler Crit Value Read Back Y Blood Gas Notified Time 2328 Potassium 4.8 Carbon Dioxide 10 L* D Anion Gap 32 H BUN 17 Creatinine 0.8 Est GFR ( Amer) > 60 Est GFR (Non-Af Amer) > 60 Random Glucose 635 H* D Calcium 8.6 Magnesium 1.8 Venous Blood Potassium 5.2 Urine Color Urine Clarity Urine pH Ur Specific Wayne Urine Protein Urine Glucose (UA) Urine Ketones Urine Blood Urine Nitrate Urine Bilirubin Urine Urobilinogen Ur Leukocyte Esterase Urine RBC (Auto) Urine Microscopic WBC Ur Squamous Epith Cells Urine Bacteria 04/15/17 00:01 WBC RBC Hgb Hct MCV MCH MCHC RDW Plt Count MPV Neut % (Auto) Lymph % (Auto) Wilkin % (Auto) Eos % (Auto) Baso % (Auto) Neut # Lymph # Wilkin # Eos # Baso # pO2 VBG pH VBG pCO2 VBG HCO3 VBG Total CO2 VBG O2 Sat (Calc) VBG Base Excess VBG Potassium Sodium Chloride Glucose Lactate FiO2 Crit Value Called To Crit Value Called By Crit Value Read Back Blood Gas Notified Time Potassium Carbon Dioxide Anion Gap BUN Creatinine Est GFR ( Amer) Est GFR (Non-Af Amer) Random Glucose Calcium Magnesium Venous Blood Potassium Urine Color Red Urine Clarity Cloudy Urine pH 6.0 Ur Specific Wayne 1.025 Urine Protein 100 Urine Glucose (UA) >=500 Urine Ketones 80 Urine Blood Large Urine Nitrate Negative Urine Bilirubin Negative Urine Urobilinogen 0.2-1.0 Ur Leukocyte Esterase Trace Urine RBC (Auto) 176 H Urine Microscopic WBC 6 H Ur Squamous Epith Cells 1 Urine Bacteria Rare Assessment & Plan - Assessment and Plan (Free Text) Assessment: This is a year old female with pmh of type 1 DM with multiple admissions for DKA , who is again presenting with acute diabetic ketoacidosis ASSESSMENT - Acute diabetic ketoacidosis, etiology unclear, differential includes medical noncompliance, infection, emotional stress PLAN - Admit to ICU for close monitoring - Endocrinology consultation in the morning with Dr. Gallego - Vitals as per ICU protocol - Continue Insulin drip - Repeat BMP q 2 hours x 2, then q 3 hours to monitor lytes and anion gap - VBG in AM - Accuchecks q 1 hours while on insulin drip - Hypoglycemia tx protocol ordered - Will d/c insulin drip when Blood glucose reaches approximately 250 and transition to sliding scale insulin with accuchecks - Advance diet as tolerated - Estimated length of stay greater than 2 midnights -My time spent evaluating the patient, and answering questions, aand formulating an assessment and plan, along with coordination of care, is greater than 45 minutes.
[2017-04-15 03:05] LABS: BLOOD UREA NITROGEN 14 mg/dl (7-17); CALCIUM 7.7 mg/dL (8.4-10.2); CHLORIDE 110 mmol/L (98-107); GFR AFRICAN-AMERICAN > 60; GLUCOSE,RANDOM 207 mg/dL (65-105); SODIUM 144 mmol/l (132-148)
[2017-04-15 03:08] LABS: CARBON DIOXIDE 5 mmol/L (22-30)
[2017-04-15] MEDS ORDERED: KCL 40MEQ/NS 1L 1,000 ML IV SCH (03:45)
[2017-04-15] MEDS ORDERED: Insulin Regular 100 units/ml SC STA (06:05)
[2017-04-15 06:13] LABS: VENOUS BLOOD GAS BASE EXCESS -14.9 mmol/L (0.0-2.0); VENOUS BLOOD GAS PCO2 25 mmHg (40-60); VENOUS BLOOD PH 7.24 (7.32-7.43)
[2017-04-15 06:41] LABS: BLOOD UREA NITROGEN 12 mg/dl (7-17); CALCIUM 7.4 mg/dL (8.4-10.2); CHLORIDE 111 mmol/L (98-107); GFR AFRICAN-AMERICAN > 60; GLUCOSE,RANDOM 247 mg/dL (65-105); POTASSIUM 4.2 MMOL/L (3.6-5.0); SODIUM 139 mmol/l (132-148)
[2017-04-15 06:48] LABS: CARBON DIOXIDE 10 mmol/L (22-30)
--- NOTE | 2017-04-15 07:29 | CP.CCUPN ---
CCU Subjective - Physician Review Subjective (Free Text): Awake and alert, has been ambulating to bathroom without difficulty, denies any dizziness, nausea, headaches, CP or SOB. Has been off insulin drip since 3 AM when BS level dropped to approx. 140, remains on IVFs at 300ml/hr. Last insulin dose was 10 units Humulin at 6AM for BS= 317. Feels hungry, denies any abd pain. Other vitals and I/O's reviewed. No fever spikes noted. ROS: No other pertinent negs or positives on 10+ system review. PMSFH: All Nursing and physician documentation reviewed to date; no new pertinent info noted relevant to current medical problems. MAJOR PROBLEMS: 1. DKA with DM I, no other concurrent illnesses noted. PLAN: 1. IVF hydration to continue until anion gap normalizes. 2. Could resume Levemir. On Accuchecks Q2H for now. 3. HGBa1C. 4. Process Planner eval and f/u for recurrent hyperglycemia and frequent DKA episodes. 5. Moderate CHO diet CCU Objective - Vital Signs / Intake & Output Vital Signs (Last 4 hours): Vital Signs Temp Pulse Resp BP Pulse Ox 04/15/17 06:00 96 H 20 105/58 L 100 04/15/17 04:00 97.5 F L 100 H 22 99/56 L 99 Intake and Output (Last 8hrs): Intake & Output 04/14/17 04/15/17 04/15/17 22:59 06:59 14:59 Intake Total 1000 Output Total 0 Balance 1000 Weight 128 lb Intake: IV 1000 Output: Urine 0 Urine, Voided 0 - Physical Exam Head: Positive for: Normocephalic Pupils: Positive for: PERRL Extroacular Muscles: Positive for: EOMI Conjunctiva: Negative for: Icteric Mouth: Positive for: Moist Mucous Membranes Pharnyx: Positive for: Normal Neck: Positive for: Normal Range of Motion. Negative for: JVD, Lymphadenopathy Respiratory/Chest: Positive for: Clear to Auscultation. Negative for: Accessory Muscle Use, Wheezes Cardiovascular: Positive for: Regular Rate and Rhythm. Negative for: Murmurs, Rub Abdomen: Positive for: Normal Bowel Sounds. Negative for: Tenderness, Distention Lower Extremity: Positive for: Normal Inspection, NORMAL PULSES. Negative for: Edema, CALF TENDERNESS, Cyanosis Neurological: Positive for: GCS=15, CN II-XII Intact, Motor Func Grossly Intact , Normal Sensory Function Skin: Positive for: Warm. Negative for: Rashes Psychiatric: Positive for: Alert, Oriented x 3 - Medications Active Medications: Active Medications Generic Name Dose Route Start Last Admin Trade Name Freq PRN Reason Stop Dose Admin Dextrose 0 ml 04/14/17 23:33 Dextrose 50% Inj IV STAT PRN Hyglycemia Protocol Protocol Dextrose 0 gm 04/14/17 23:33 Glutose 15 PO ONCE PRN Hypoglycemia Protocol Protocol Glucagon 0 mg 04/14/17 23:33 Glucagen Diagnostic Kit IM STAT PRN Hypoglycemia Protocol Protocol Sodium Chloride 2,000 mls @ 1,000 mls/hr 04/14/17 23:00 04/15/17 00:28 Sodium Chloride 0.9% IV 04/15/17 22:58 1,000 mls/hr .Q2H LANETTE Administration Oral Electrolytes 1,000 mls @ 294.118 mls/hr 04/15/17 03:45 04/15/17 04:10 Kcl 40meq/ 0.9% 1l IV 04/16/17 03:37 294.118 mls/hr .Q3H24M LANETTE Administration - Patient Studies Lab Studies: Lab Studies 04/15/17 04/15/17 04/15/17 Range/Units 05:43 05:40 05:15 WBC (4.8-10.8) K/uL RBC (3.80-5.20) Mil/uL Hgb (12.0-16.0) g/dL Hct (34.0-47.0) % MCV (81.0-99.0) fl MCH (27.0-31.0) pg MCHC (33.0-37.0) g/dL RDW (11.5-14.5) % Plt Count (130-400) K/uL MPV (7.2-11.7) fl Neut % (Auto) (50.0-75.0) % Lymph % (Auto) (20.0-40.0) % Noble % (Auto) (0.0-10.0) % Eos % (Auto) (0.0-4.0) % Baso % (Auto) (0.0-2.0) % Neut # (1.8-7.0) K/uL Lymph # (1.0-4.3) K/uL Noble # (0.0-0.8) K/uL Eos # (0.0-0.7) K/uL Baso # (0.0-0.2) K/uL pO2 77 H (30-55) mm/Hg VBG pH 7.24 L (7.32-7.43) VBG pCO2 25 L (40-60) mmHg VBG HCO3 13.2 mmol/L VBG Total CO2 (22-28) mmol/L VBG O2 Sat (Calc) 96.8 H (40-65) % VBG Base Excess -14.9 L (0.0-2.0) mmol/L VBG Potassium (3.6-5.2) mmol/L Sodium 139 (132-148) mmol/L Chloride 111 H (98-107) mmol/L Glucose (65-105) mg/dL Lactate (0.7-2.1) mmol/L FiO2 % Crit Value Called To Crit Value Called By Crit Value Read Back Blood Gas Notified Time Potassium 4.2 (3.6-5.0) MMOL/L Carbon Dioxide 10 L* D (22-30) mmol/L Anion Gap 22 H (10-20) BUN 12 (7-17) mg/dl Creatinine 0.5 L (0.7-1.2) mg/dL Est GFR ( Amer) > 60 Est GFR (Non-Af Amer) > 60 POC Glucose (mg/dL) 317 H (65-110) mg/dL Random Glucose 247 H (65-105) mg/dL Calcium 7.4 L (8.4-10.2) mg/dL Magnesium (1.6-2.3) MG/DL Venous Blood Potassium (3.6-5.2) mmol/L Urine Color (YELLOW) Urine Clarity (Clear) Urine pH (5.0-8.0) Ur Specific [place] (1.003-1.030) Urine Protein (NEGATIVE) mg/dL Urine Glucose (UA) (Normal) mg/dL Urine Ketones (NEGATIVE) mg/dL Urine Blood (NEGATIVE) Urine Nitrate (NEGATIVE) Urine Bilirubin (NEGATIVE) Urine Urobilinogen (0.2-1.0) mg/dL Ur Leukocyte Esterase (Negative) Dian/uL Urine RBC (Auto) (0-3) /hpf Urine Microscopic WBC (0-5) /hpf Ur Squamous Epith Cells (0-5) /hpf Urine Bacteria (<OCC) 04/15/17 04/15/17 04/15/17 Range/Units 04:45 04:19 03:04 WBC (4.8-10.8) K/uL RBC (3.80-5.20) Mil/uL Hgb (12.0-16.0) g/dL Hct (34.0-47.0) % MCV (81.0-99.0) fl MCH (27.0-31.0) pg MCHC (33.0-37.0) g/dL RDW (11.5-14.5) % Plt Count (130-400) K/uL MPV (7.2-11.7) fl Neut % (Auto) (50.0-75.0) % Lymph % (Auto) (20.0-40.0) % Noble % (Auto) (0.0-10.0) % Eos % (Auto) (0.0-4.0) % Baso % (Auto) (0.0-2.0) % Neut # (1.8-7.0) K/uL Lymph # (1.0-4.3) K/uL Noble # (0.0-0.8) K/uL Eos # (0.0-0.7) K/uL Baso # (0.0-0.2) K/uL pO2 (30-55) mm/Hg VBG pH (7.32-7.43) VBG pCO2 (40-60) mmHg VBG HCO3 mmol/L VBG Total CO2 (22-28) mmol/L VBG O2 Sat (Calc) (40-65) % VBG Base Excess (0.0-2.0) mmol/L VBG Potassium (3.6-5.2) mmol/L Sodium (132-148) mmol/L Chloride (98-107) mmol/L Glucose (65-105) mg/dL Lactate (0.7-2.1) mmol/L FiO2 % Crit Value Called To Crit Value Called By Crit Value Read Back Blood Gas Notified Time Potassium (3.6-5.0) MMOL/L Carbon Dioxide (22-30) mmol/L Anion Gap (10-20) BUN (7-17) mg/dl Creatinine (0.7-1.2) mg/dL Est GFR ( Amer) Est GFR (Non-Af Amer) POC Glucose (mg/dL) 162 H 100 140 H (65-110) mg/dL Random Glucose (65-105) mg/dL Calcium (8.4-10.2) mg/dL Magnesium (1.6-2.3) MG/DL Venous Blood Potassium (3.6-5.2) mmol/L Urine Color (YELLOW) Urine Clarity (Clear) Urine pH (5.0-8.0) Ur Specific [place] (1.003-1.030) Urine Protein (NEGATIVE) mg/dL Urine Glucose (UA) (Normal) mg/dL Urine Ketones (NEGATIVE) mg/dL Urine Blood (NEGATIVE) Urine Nitrate (NEGATIVE) Urine Bilirubin (NEGATIVE) Urine Urobilinogen (0.2-1.0) mg/dL Ur Leukocyte Esterase (Negative) Dian/uL Urine RBC (Auto) (0-3) /hpf Urine Microscopic WBC (0-5) /hpf Ur Squamous Epith Cells (0-5) /hpf Urine Bacteria (<OCC) 04/15/17 04/15/17 04/15/17 Range/Units 02:27 01:36 00:01 WBC (4.8-10.8) K/uL RBC (3.80-5.20) Mil/uL Hgb (12.0-16.0) g/dL Hct (34.0-47.0) % MCV (81.0-99.0) fl MCH (27.0-31.0) pg MCHC (33.0-37.0) g/dL RDW (11.5-14.5) % Plt Count (130-400) K/uL MPV (7.2-11.7) fl Neut % (Auto) (50.0-75.0) % Lymph % (Auto) (20.0-40.0) % Noble % (Auto) (0.0-10.0) % Eos % (Auto) (0.0-4.0) % Baso % (Auto) (0.0-2.0) % Neut # (1.8-7.0) K/uL Lymph # (1.0-4.3) K/uL Noble # (0.0-0.8) K/uL Eos # (0.0-0.7) K/uL Baso # (0.0-0.2) K/uL pO2 (30-55) mm/Hg VBG pH (7.32-7.43) VBG pCO2 (40-60) mmHg VBG HCO3 mmol/L VBG Total CO2 (22-28) mmol/L VBG O2 Sat (Calc) (40-65) % VBG Base Excess (0.0-2.0) mmol/L VBG Potassium (3.6-5.2) mmol/L Sodium 144 (132-148) mmol/L Chloride 110 H (98-107) mmol/L Glucose (65-105) mg/dL Lactate (0.7-2.1) mmol/L FiO2 % Crit Value Called To Crit Value Called By Crit Value Read Back Blood Gas Notified Time Potassium 3.0 L (3.6-5.0) MMOL/L Carbon Dioxide 5 L* D (22-30) mmol/L Anion Gap 32 H (10-20) BUN 14 (7-17) mg/dl Creatinine 0.7 (0.7-1.2) mg/dL Est GFR ( Amer) > 60 Est GFR (Non-Af Amer) > 60 POC Glucose (mg/dL) 361 H (65-110) mg/dL Random Glucose 207 H (65-105) mg/dL Calcium 7.7 L (8.4-10.2) mg/dL Magnesium (1.6-2.3) MG/DL Venous Blood Potassium (3.6-5.2) mmol/L Urine Color Red (YELLOW) Urine Clarity Cloudy (Clear) Urine pH 6.0 (5.0-8.0) Ur Specific [place] 1.025 (1.003-1.030) Urine Protein 100 (NEGATIVE) mg/dL Urine Glucose (UA) >=500 (Normal) mg/dL Urine Ketones 80 (NEGATIVE) mg/dL Urine Blood Large (NEGATIVE) Urine Nitrate Negative (NEGATIVE) Urine Bilirubin Negative (NEGATIVE) Urine Urobilinogen 0.2-1.0 (0.2-1.0) mg/dL Ur Leukocyte Esterase Trace (Negative) Dian/uL Urine RBC (Auto) 176 H (0-3) /hpf Urine Microscopic WBC 6 H (0-5) /hpf Ur Squamous Epith Cells 1 (0-5) /hpf Urine Bacteria Rare (<OCC) 04/14/17 04/14/17 04/14/17 Range/Units 23:16 23:16 23:16 WBC 4.9 (4.8-10.8) K/uL RBC 4.07 (3.80-5.20) Mil/uL Hgb 12.2 (12.0-16.0) g/dL Hct 38.1 (34.0-47.0) % MCV 93.6 D (81.0-99.0) fl MCH 29.8 (27.0-31.0) pg MCHC 31.9 L (33.0-37.0) g/dL RDW 14.0 (11.5-14.5) % Plt Count 376 D (130-400) K/uL MPV 7.5 (7.2-11.7) fl Neut % (Auto) 56.8 (50.0-75.0) % Lymph % (Auto) 30.4 (20.0-40.0) % Noble % (Auto) 8.3 (0.0-10.0) % Eos % (Auto) 2.8 (0.0-4.0) % Baso % (Auto) 1.7 (0.0-2.0) % Neut # 2.8 (1.8-7.0) K/uL Lymph # 1.5 (1.0-4.3) K/uL Noble # 0.4 (0.0-0.8) K/uL Eos # 0.1 (0.0-0.7) K/uL Baso # 0.1 (0.0-0.2) K/uL pO2 50 (30-55) mm/Hg VBG pH 7.25 L (7.32-7.43) VBG pCO2 27 L (40-60) mmHg VBG HCO3 13.6 mmol/L VBG Total CO2 12.6 L (22-28) mmol/L VBG O2 Sat (Calc) 88.4 H (40-65) % VBG Base Excess -13.8 L (0.0-2.0) mmol/L VBG Potassium 5.2 (3.6-5.2) mmol/L Sodium 133.0 135 (132-148) mmol/L Chloride 95.0 L 98 (98-107) mmol/L Glucose 732 H* (65-105) mg/dL Lactate 1.6 (0.7-2.1) mmol/L FiO2 21.0 % Crit Value Called To aisha Lester md Crit Value Called By Sudeep chandler Crit Value Read Back Y Blood Gas Notified Time 232 Potassium 4.8 (3.6-5.0) MMOL/L Carbon Dioxide 10 L* D (22-30) mmol/L Anion Gap 32 H (10-20) BUN 17 (7-17) mg/dl Creatinine 0.8 (0.7-1.2) mg/dL Est GFR ( Amer) > 60 Est GFR (Non-Af Amer) > 60 POC Glucose (mg/dL) (65-110) mg/dL Random Glucose 635 H* D (65-105) mg/dL Calcium 8.6 (8.4-10.2) mg/dL Magnesium 1.8 (1.6-2.3) MG/DL Venous Blood Potassium 5.2 (3.6-5.2) mmol/L Urine Color (YELLOW) Urine Clarity (Clear) Urine pH (5.0-8.0) Ur Specific [place] (1.003-1.030) Urine Protein (NEGATIVE) mg/dL Urine Glucose (UA) (Normal) mg/dL Urine Ketones (NEGATIVE) mg/dL Urine Blood (NEGATIVE) Urine Nitrate (NEGATIVE) Urine Bilirubin (NEGATIVE) Urine Urobilinogen (0.2-1.0) mg/dL Ur Leukocyte Esterase (Negative) Dian/uL Urine RBC (Auto) (0-3) /hpf Urine Microscopic WBC (0-5) /hpf Ur Squamous Epith Cells (0-5) /hpf Urine Bacteria (<OCC) 04/14/17 04/14/17 Range/Units 23:00 22:41 WBC (4.8-10.8) K/uL RBC (3.80-5.20) Mil/uL Hgb (12.0-16.0) g/dL Hct (34.0-47.0) % MCV (81.0-99.0) fl MCH (27.0-31.0) pg MCHC (33.0-37.0) g/dL RDW (11.5-14.5) % Plt Count (130-400) K/uL MPV (7.2-11.7) fl Neut % (Auto) (50.0-75.0) % Lymph % (Auto) (20.0-40.0) % [place] % (Auto) (0.0-10.0) % Eos % (Auto) (0.0-4.0) % Baso % (Auto) (0.0-2.0) % Neut # (1.8-7.0) K/uL Lymph # (1.0-4.3) K/uL [place] # (0.0-0.8) K/uL Eos # (0.0-0.7) K/uL Baso # (0.0-0.2) K/uL pO2 (30-55) mm/Hg VBG pH (7.32-7.43) VBG pCO2 (40-60) mmHg VBG HCO3 mmol/L VBG Total CO2 (22-28) mmol/L VBG O2 Sat (Calc) (40-65) % VBG Base Excess (0.0-2.0) mmol/L VBG Potassium (3.6-5.2) mmol/L Sodium (132-148) mmol/L Chloride (98-107) mmol/L Glucose (65-105) mg/dL Lactate (0.7-2.1) mmol/L FiO2 % Crit Value Called To Crit Value Called By Crit Value Read Back Blood Gas Notified Time Potassium (3.6-5.0) MMOL/L Carbon Dioxide (22-30) mmol/L Anion Gap (10-20) BUN (7-17) mg/dl Creatinine (0.7-1.2) mg/dL Est GFR ( Amer) Est GFR (Non-Af Amer) POC Glucose (mg/dL) > 500 H* > 500 H* (65-110) mg/dL Random Glucose (65-105) mg/dL Calcium (8.4-10.2) mg/dL Magnesium (1.6-2.3) MG/DL Venous Blood Potassium (3.6-5.2) mmol/L Urine Color (YELLOW) Urine Clarity (Clear) Urine pH (5.0-8.0) Ur Specific [place] (1.003-1.030) Urine Protein (NEGATIVE) mg/dL Urine Glucose (UA) (Normal) mg/dL Urine Ketones (NEGATIVE) mg/dL Urine Blood (NEGATIVE) Urine Nitrate (NEGATIVE) Urine Bilirubin (NEGATIVE) Urine Urobilinogen (0.2-1.0) mg/dL Ur Leukocyte Esterase (Negative) Dian/uL Urine RBC (Auto) (0-3) /hpf Urine Microscopic WBC (0-5) /hpf Ur Squamous Epith Cells (0-5) /hpf Urine Bacteria (<OCC) Laboratory Results - last 24 hr 04/14/17 04/14/17 04/14/17 22:41 23:00 23:16 WBC RBC Hgb Hct MCV MCH MCHC RDW Plt Count MPV Neut % (Auto) Lymph % (Auto) [place] % (Auto) Eos % (Auto) Baso % (Auto) Neut # Lymph # [place] # Eos # Baso # pO2 VBG pH VBG pCO2 VBG HCO3 VBG Total CO2 VBG O2 Sat (Calc) VBG Base Excess VBG Potassium Sodium 135 Chloride 98 Glucose Lactate FiO2 Crit Value Called To Crit Value Called By Crit Value Read Back Blood Gas Notified Time Potassium 4.8 Carbon Dioxide 10 L* D Anion Gap 32 H BUN 17 Creatinine 0.8 Est GFR ( Amer) > 60 Est GFR (Non-Af Amer) > 60 POC Glucose (mg/dL) > 500 H* > 500 H* Random Glucose 635 H* D Calcium 8.6 Magnesium 1.8 Venous Blood Potassium Urine Color Urine Clarity Urine pH Ur Specific [place] Urine Protein Urine Glucose (UA) Urine Ketones Urine Blood Urine Nitrate Urine Bilirubin Urine Urobilinogen Ur Leukocyte Esterase Urine RBC (Auto) Urine Microscopic WBC Ur Squamous Epith Cells Urine Bacteria 04/14/17 04/14/17 04/15/17 23:16 23:16 00:01 WBC 4.9 RBC 4.07 Hgb 12.2 Hct 38.1 MCV 93.6 D MCH 29.8 MCHC 31.9 L RDW 14.0 Plt Count 376 D MPV 7.5 Neut % (Auto) 56.8 Lymph % (Auto) 30.4 [place] % (Auto) 8.3 Eos % (Auto) 2.8 Baso % (Auto) 1.7 Neut # 2.8 Lymph # 1.5 Noble # 0.4 Eos # 0.1 Baso # 0.1 pO2 50 VBG pH 7.25 L VBG pCO2 27 L VBG HCO3 13.6 VBG Total CO2 12.6 L VBG O2 Sat (Calc) 88.4 H VBG Base Excess -13.8 L VBG Potassium 5.2 Sodium 133.0 Chloride 95.0 L Glucose 732 H* Lactate 1.6 FiO2 21.0 Crit Value Called To aisha Lester md Crit Value Called By Sudeep chandler Crit Value Read Back Y Blood Gas Notified Time 2328 Potassium Carbon Dioxide Anion Gap BUN Creatinine Est GFR ( Amer) Est GFR (Non-Af Amer) POC Glucose (mg/dL) Random Glucose Calcium Magnesium Venous Blood Potassium 5.2 Urine Color Red Urine Clarity Cloudy Urine pH 6.0 Ur Specific [place] 1.025 Urine Protein 100 Urine Glucose (UA) >=500 Urine Ketones 80 Urine Blood Large Urine Nitrate Negative Urine Bilirubin Negative Urine Urobilinogen 0.2-1.0 Ur Leukocyte Esterase Trace Urine RBC (Auto) 176 H Urine Microscopic WBC 6 H Ur Squamous Epith Cells 1 Urine Bacteria Rare 04/15/17 04/15/17 04/15/17 01:36 02:27 03:04 WBC RBC Hgb Hct MCV MCH MCHC RDW Plt Count MPV Neut % (Auto) Lymph % (Auto) [place] % (Auto) Eos % (Auto) Baso % (Auto) Neut # Lymph # [place] # Eos # Baso # pO2 VBG pH VBG pCO2 VBG HCO3 VBG Total CO2 VBG O2 Sat (Calc) VBG Base Excess VBG Potassium Sodium 144 Chloride 110 H Glucose Lactate FiO2 Crit Value Called To Crit Value Called By Crit Value Read Back Blood Gas Notified Time Potassium 3.0 L Carbon Dioxide 5 L* D Anion Gap 32 H BUN 14 Creatinine 0.7 Est GFR ( Amer) > 60 Est GFR (Non-Af Amer) > 60 POC Glucose (mg/dL) 361 H 140 H Random Glucose 207 H Calcium 7.7 L Magnesium Venous Blood Potassium Urine Color Urine Clarity Urine pH Ur Specific [place] Urine Protein Urine Glucose (UA) Urine Ketones Urine Blood Urine Nitrate Urine Bilirubin Urine Urobilinogen Ur Leukocyte Esterase Urine RBC (Auto) Urine Microscopic WBC Ur Squamous Epith Cells Urine Bacteria 04/15/17 04/15/17 04/15/17 04:19 04:45 05:15 WBC RBC Hgb Hct MCV MCH MCHC RDW Plt Count MPV Neut % (Auto) Lymph % (Auto) [place] % (Auto) Eos % (Auto) Baso % (Auto) Neut # Lymph # [place] # Eos # Baso # pO2 VBG pH VBG pCO2 VBG HCO3 VBG Total CO2 VBG O2 Sat (Calc) VBG Base Excess VBG Potassium Sodium 139 Chloride 111 H Glucose Lactate FiO2 Crit Value Called To Crit Value Called By Crit Value Read Back Blood Gas Notified Time Potassium 4.2 Carbon Dioxide 10 L* D Anion Gap 22 H BUN 12 Creatinine 0.5 L Est GFR ( Amer) > 60 Est GFR (Non-Af Amer) > 60 POC Glucose (mg/dL) 100 162 H Random Glucose 247 H Calcium 7.4 L Magnesium Venous Blood Potassium Urine Color Urine Clarity Urine pH Ur Specific [place] Urine Protein Urine Glucose (UA) Urine Ketones Urine Blood Urine Nitrate Urine Bilirubin Urine Urobilinogen Ur Leukocyte Esterase Urine RBC (Auto) Urine Microscopic WBC Ur Squamous Epith Cells Urine Bacteria 04/15/17 04/15/17 05:40 05:43 WBC RBC Hgb Hct MCV MCH MCHC RDW Plt Count MPV Neut % (Auto) Lymph % (Auto) [place] % (Auto) Eos % (Auto) Baso % (Auto) Neut # Lymph # [place] # Eos # Baso # pO2 77 H VBG pH 7.24 L VBG pCO2 25 L VBG HCO3 13.2 VBG Total CO2 VBG O2 Sat (Calc) 96.8 H VBG Base Excess -14.9 L VBG Potassium Sodium Chloride Glucose Lactate FiO2 Crit Value Called To Crit Value Called By Crit Value Read Back Blood Gas Notified Time Potassium Carbon Dioxide Anion Gap BUN Creatinine Est GFR ( Amer) Est GFR (Non-Af Amer) POC Glucose (mg/dL) 317 H Random Glucose Calcium Magnesium Venous Blood Potassium Urine Color Urine Clarity Urine pH Ur Specific [place] Urine Protein Urine Glucose (UA) Urine Ketones Urine Blood Urine Nitrate Urine Bilirubin Urine Urobilinogen Ur Leukocyte Esterase Urine RBC (Auto) Urine Microscopic WBC Ur Squamous Epith Cells Urine Bacteria Fingerstick Blood Sugar Results: 317 Review of Systems - Review of Systems All systems: reviewed and no additional remarkable complaints except (as above) Critical Care Progress Note - Nutrition Nutrition: Nutrition Category Date Time Status NPO Diet [DIET] Diets 04/15/17 Breakfast Cancelled
--- NOTE | 2017-04-15 08:22 | RAD ---
HISTORY: Hyperglycemia. Portable study 23:17. COMPARISON: 12/16/2016. FINDINGS: LUNGS: No active pulmonary disease. PLEURA: No significant pleural effusion identified, no pneumothorax apparent. CARDIOVASCULAR: Normal. OSSEOUS STRUCTURES: No significant abnormalities. VISUALIZED UPPER ABDOMEN: Normal. OTHER FINDINGS: None. IMPRESSION: No active disease. No significant interval change compared to the prior examination(s). Please note: No preliminary report/ innterpretation of this examination provided by emergency department personnel.
--- NOTE | 2017-04-15 09:13 | CARD ---
APPROVED REPORT EKG Measurement Heart [id number] <Conclusion> Normal sinus rhythm Possible Left atrial enlargement Borderline ECG
[2017-04-15] MEDS ORDERED: Insulin Detemir 100 Units/ml Inj SC ONE (09:18)
[2017-04-15 10:29] LABS: BLOOD UREA NITROGEN 9 mg/dl (7-17); CHLORIDE 110 mmol/L (98-107); GFR AFRICAN-AMERICAN > 60; GLUCOSE,RANDOM 130 mg/dL (65-105); POTASSIUM 4.1 MMOL/L (3.6-5.0); SODIUM 142 mmol/l (132-148)
[2017-04-15 10:30] LABS: CALCIUM 7.8 mg/dL (8.4-10.2)
[2017-04-15 10:34] LABS: CARBON DIOXIDE 7 mmol/L (22-30)
[2017-04-15] MEDS: Potassium Ch 20mEq in D5-1/2NS 1,000 ML IV SCH ×2 (10:45→17:25)
[2017-04-15] MEDS: Insulin Regular 100 units/ml SC SCH ×2 (12:00→17:20)
[2017-04-16] MEDS: Potassium Ch 20mEq in D5-1/2NS 1,000 ML IV SCH ×2 (00:08→23:37)
[2017-04-16 05:26] LABS: MEAN CELL VOLUME 92.8 fl (81.0-99.0); MEAN CORPUSCULAR HEMOGLOBIN 30.1 pg (27.0-31.0); MEAN CORPUSCULAR HGB CONC 32.4 g/dL (33.0-37.0); RED CELL DISTRIBUTION WIDTH 13.3 % (11.5-14.5); WHITE BLOOD COUNT 5.9 K/uL (4.8-10.8)
[2017-04-16 05:33] LABS: BLOOD UREA NITROGEN 14 mg/dl (7-17); CALCIUM 8.4 mg/dL (8.4-10.2); CARBON DIOXIDE 14 mmol/L (22-30); CHLORIDE 108 mmol/L (98-107); GFR AFRICAN-AMERICAN > 60; GLUCOSE,RANDOM 170 mg/dL (65-105); POTASSIUM 3.8 MMOL/L (3.6-5.0); SODIUM 140 mmol/l (132-148)
--- NOTE | 2017-04-16 07:05 | CP.CCUPN ---
CCU Subjective - Physician Review Subjective (Free Text): Awake and alert, ambulating to bathroom without difficulty, + menses now as well , denies any abdominal pain, dizziness, nausea, headaches, CP or SOB. Resumed back on IVFs and Insulin drip since yesterday morning, and just stopped at 6AM this morning. Appetite, PO intake excellent. Other vitals and I/O's reviewed. No fever spikes noted. ROS: No other pertinent negs or positives on 10+ system review. PMSFH: All Nursing and physician documentation reviewed to date; no new pertinent info noted relevant to current medical problems. MAJOR PROBLEMS: 1. DKA with DM I, no other concurrent illnesses noted. PLAN: 1. IVF hydration and supplemental insulin to continue until anion gap normalizes. 2. Could resume Levemir. Accuchecks Q4H for now. 3. HGBa1C. 4. Application Spec eval and f/u for recurrent hyperglycemia and frequent DKA episodes. 5. Moderate CHO diet. CCU Objective - Vital Signs / Intake & Output Vital Signs (Last 4 hours): Vital Signs Temp Pulse Resp BP 04/16/17 04:00 97.6 F 92 H 21 112/68 Intake and Output (Last 8hrs): Intake & Output 04/15/17 04/16/17 04/16/17 22:59 06:59 14:59 Intake Total 705 1900 Balance 705 1900 Intake: IV 705 1410 Oral 490 Other: # Voids Urine, Voided 1 1 - Physical Exam Head: Positive for: Normocephalic Pupils: Positive for: PERRL Extroacular Muscles: Positive for: EOMI Conjunctiva: Negative for: Icteric Mouth: Positive for: Moist Mucous Membranes Pharnyx: Positive for: Normal Neck: Positive for: Normal Range of Motion. Negative for: JVD, Lymphadenopathy Respiratory/Chest: Positive for: Clear to Auscultation. Negative for: Accessory Muscle Use, Wheezes Cardiovascular: Positive for: Regular Rate and Rhythm. Negative for: Murmurs, Rub Abdomen: Positive for: Normal Bowel Sounds. Negative for: Tenderness, Distention Lower Extremity: Positive for: Normal Inspection, NORMAL PULSES. Negative for: Edema, CALF TENDERNESS, Cyanosis Neurological: Positive for: GCS=15, CN II-XII Intact, Motor Func Grossly Intact , Normal Sensory Function Skin: Positive for: Warm. Negative for: Rashes Psychiatric: Positive for: Alert, Oriented x 3 - Medications Active Medications: Active Medications Generic Name Dose Route Start Last Admin Trade Name Davidq PRN Reason Stop Dose Admin Dextrose 0 ml 04/14/17 23:33 Dextrose 50% Inj IV STAT PRN Hyglycemia Protocol Protocol Dextrose 0 gm 04/14/17 23:33 Glutose 15 PO ONCE PRN Hypoglycemia Protocol Protocol Glucagon 0 mg 04/14/17 23:33 Glucagen Diagnostic Kit IM STAT PRN Hypoglycemia Protocol Protocol Potassium Chloride/Dextrose/Sod Cl 1,000 mls @ 175 mls/hr 04/15/17 10:45 00:08 Potassium Chl 20 Meq In D5-1/2ns IV 04/16/17 10:39 175 mls/hr .[id number] LANETTE Administration Insulin Human Regular 100 101 mls @ 4.04 mls/hr 04/15/17 20:49 04/16/17 06:17 units/ Sodium Chloride IV 0 units/hr .Q24H LANETTE 0 mls/hr Protocol Titration 4 UNITS/HR Insulin Human Regular 0 units 04/15/17 12:00 04/15/17 17:20 Humulin R SC Not Given ACCU-CHECK LANETTE Protocol - Patient Studies Lab Studies: Lab Studies 04/16/17 04/16/17 04/16/17 Range/Units 06:04 04:15 04:15 WBC 5.9 (4.8-10.8) K/uL RBC 3.45 L (3.80-5.20) Mil/uL Hgb 10.4 L (12.0-16.0) g/dL Hct 32.0 L (34.0-47.0) % MCV 92.8 (81.0-99.0) fl MCH 30.1 (27.0-31.0) pg MCHC 32.4 L (33.0-37.0) g/dL RDW 13.3 (11.5-14.5) % Plt Count 264 D (130-400) K/uL Sodium 140 (132-148) mmol/l Potassium 3.8 (3.6-5.0) MMOL/L Chloride 108 H (98-107) mmol/L Carbon Dioxide 14 L (22-30) mmol/L Anion Gap 22 H (10-20) BUN 14 (7-17) mg/dl Creatinine 0.7 (0.7-1.2) mg/dL Est GFR ( Amer) > 60 Est GFR (Non-Af Amer) > 60 POC Glucose (mg/dL) 124 H (65-110) mg/dL Random Glucose 170 H (65-105) mg/dL Calcium 8.4 (8.4-10.2) mg/dL 04/16/17 04/16/17 04/16/17 Range/Units 04:11 01:58 00:01 WBC (4.8-10.8) K/uL RBC (3.80-5.20) Mil/uL Hgb (12.0-16.0) g/dL Hct (34.0-47.0) % MCV (81.0-99.0) fl MCH (27.0-31.0) pg MCHC (33.0-37.0) g/dL RDW (11.5-14.5) % Plt Count (130-400) K/uL Sodium (132-148) mmol/l Potassium (3.6-5.0) MMOL/L Chloride (98-107) mmol/L Carbon Dioxide (22-30) mmol/L Anion Gap (10-20) BUN (7-17) mg/dl Creatinine (0.7-1.2) mg/dL Est GFR ( Amer) Est GFR (Non-Af Amer) POC Glucose (mg/dL) 260 H 381 H 115 H (65-110) mg/dL Random Glucose (65-105) mg/dL Calcium (8.4-10.2) mg/dL 04/15/17 04/15/17 04/15/17 Range/Units 21:57 20:17 18:01 WBC (4.8-10.8) K/uL RBC (3.80-5.20) Mil/uL Hgb (12.0-16.0) g/dL Hct (34.0-47.0) % MCV (81.0-99.0) fl MCH (27.0-31.0) pg MCHC (33.0-37.0) g/dL RDW (11.5-14.5) % Plt Count (130-400) K/uL Sodium (132-148) mmol/l Potassium (3.6-5.0) MMOL/L Chloride (98-107) mmol/L Carbon Dioxide (22-30) mmol/L Anion Gap (10-20) BUN (7-17) mg/dl Creatinine (0.7-1.2) mg/dL Est GFR ( Amer) Est GFR (Non-Af Amer) POC Glucose (mg/dL) 174 H 406 H* 228 H (65-110) mg/dL Random Glucose (65-105) mg/dL Calcium (8.4-10.2) mg/dL 04/15/17 04/15/17 04/15/17 Range/Units 16:01 15:06 14:16 WBC (4.8-10.8) K/uL RBC (3.80-5.20) Mil/uL Hgb (12.0-16.0) g/dL Hct (34.0-47.0) % MCV (81.0-99.0) fl MCH (27.0-31.0) pg MCHC (33.0-37.0) g/dL RDW (11.5-14.5) % Plt Count (130-400) K/uL Sodium (132-148) mmol/l Potassium (3.6-5.0) MMOL/L Chloride (98-107) mmol/L Carbon Dioxide (22-30) mmol/L Anion Gap (10-20) BUN (7-17) mg/dl Creatinine (0.7-1.2) mg/dL Est GFR ( Amer) Est GFR (Non-Af Amer) POC Glucose (mg/dL) 94 122 H 177 H (65-110) mg/dL Random Glucose (65-105) mg/dL Calcium (8.4-10.2) mg/dL 04/15/17 04/15/17 04/15/17 Range/Units 13:01 12:16 10:59 WBC (4.8-10.8) K/uL RBC (3.80-5.20) Mil/uL Hgb (12.0-16.0) g/dL Hct (34.0-47.0) % MCV (81.0-99.0) fl MCH (27.0-31.0) pg MCHC (33.0-37.0) g/dL RDW (11.5-14.5) % Plt Count (130-400) K/uL Sodium (132-148) mmol/l Potassium (3.6-5.0) MMOL/L Chloride (98-107) mmol/L Carbon Dioxide (22-30) mmol/L Anion Gap (10-20) BUN (7-17) mg/dl Creatinine (0.7-1.2) mg/dL Est GFR ( Amer) Est GFR (Non-Af Amer) POC Glucose (mg/dL) 109 143 H 158 H (65-110) mg/dL Random Glucose (65-105) mg/dL Calcium (8.4-10.2) mg/dL 04/15/17 04/15/17 04/15/17 Range/Units 09:45 09:30 07:33 WBC (4.8-10.8) K/uL RBC (3.80-5.20) Mil/uL Hgb (12.0-16.0) g/dL Hct (34.0-47.0) % MCV (81.0-99.0) fl MCH (27.0-31.0) pg MCHC (33.0-37.0) g/dL RDW (11.5-14.5) % Plt Count (130-400) K/uL Sodium 142 (132-148) mmol/l Potassium 4.1 (3.6-5.0) MMOL/L Chloride 110 H (98-107) mmol/L Carbon Dioxide 7 L* D (22-30) mmol/L Anion Gap 29 H (10-20) BUN 9 (7-17) mg/dl Creatinine 0.6 L (0.7-1.2) mg/dL Est GFR ( Amer) > 60 Est GFR (Non-Af Amer) > 60 POC Glucose (mg/dL) 149 H 313 H (65-110) mg/dL Random Glucose 130 H (65-105) mg/dL Calcium 7.8 L (8.4-10.2) mg/dL Laboratory Results - last 24 hr 04/15/17 04/15/17 04/15/17 07:33 09:30 09:45 WBC RBC Hgb Hct MCV MCH MCHC RDW Plt Count Sodium 142 Potassium 4.1 Chloride 110 H Carbon Dioxide 7 L* D Anion Gap 29 H BUN 9 Creatinine 0.6 L Est GFR ( Amer) > 60 Est GFR (Non-Af Amer) > 60 POC Glucose (mg/dL) 313 H 149 H Random Glucose 130 H Calcium 7.8 L 04/15/17 04/15/17 04/15/17 10:59 12:16 13:01 WBC RBC Hgb Hct MCV MCH MCHC RDW Plt Count Sodium Potassium Chloride Carbon Dioxide Anion Gap BUN Creatinine Est GFR ( Amer) Est GFR (Non-Af Amer) POC Glucose (mg/dL) 158 H 143 H 109 Random Glucose Calcium 04/15/17 04/15/17 04/15/17 14:16 15:06 16:01 WBC RBC Hgb Hct MCV MCH MCHC RDW Plt Count Sodium Potassium Chloride Carbon Dioxide Anion Gap BUN Creatinine Est GFR ( Amer) Est GFR (Non-Af Amer) POC Glucose (mg/dL) 177 H 122 H 94 Random Glucose Calcium 04/15/17 04/15/17 04/15/17 18:01 20:17 21:57 WBC RBC Hgb Hct MCV MCH MCHC RDW Plt Count Sodium Potassium Chloride Carbon Dioxide Anion Gap BUN Creatinine Est GFR ( Amer) Est GFR (Non-Af Amer) POC Glucose (mg/dL) 228 H 406 H* 174 H Random Glucose Calcium 04/16/17 04/16/17 04/16/17 00:01 01:58 04:11 WBC RBC Hgb Hct MCV MCH MCHC RDW Plt Count Sodium Potassium Chloride Carbon Dioxide Anion Gap BUN Creatinine Est GFR ( Amer) Est GFR (Non-Af Amer) POC Glucose (mg/dL) 115 H 381 H 260 H Random Glucose Calcium 04/16/17 04/16/17 04/16/17 04:15 04:15 06:04 WBC 5.9 RBC 3.45 L Hgb 10.4 L Hct 32.0 L MCV 92.8 MCH 30.1 MCHC 32.4 L RDW 13.3 Plt Count 264 D Sodium 140 Potassium 3.8 Chloride 108 H Carbon Dioxide 14 L Anion Gap 22 H BUN 14 Creatinine 0.7 Est GFR ( Amer) > 60 Est GFR (Non-Af Amer) > 60 POC Glucose (mg/dL) 124 H Random Glucose 170 H Calcium 8.4 Fingerstick Blood Sugar Results: 124 Review of Systems - Review of Systems All systems: reviewed and no additional remarkable complaints except (as above) Critical Care Progress Note - Nutrition Nutrition: Nutrition Category Date Time Status Consistent Carbohydrate [DIET] Diets 04/15/17 Breakfast Active
[2017-04-16 15:02] LABS: BLOOD UREA NITROGEN 13 mg/dl (7-17); CALCIUM 8.6 mg/dL (8.4-10.2); CARBON DIOXIDE 16 mmol/L (22-30); CHLORIDE 105 mmol/L (98-107); GFR AFRICAN-AMERICAN > 60; GLUCOSE,RANDOM 255 mg/dL (65-105); SODIUM 139 mmol/l (132-148)
[2017-04-16 15:20] LABS: POTASSIUM 5.4 MMOL/L (3.6-5.0)
[2017-04-16] MEDS ORDERED: Potassium Ch 20mEq in D5-1/2NS 1,000 ML IV SCH (15:30)
[2017-04-16] MEDS ORDERED: Dextrose 5%/0.45% NS 1,000 ML IV SCH (23:15)
[2017-04-16] MEDS ORDERED: Dextrose 5%/0.45% NS 500 ML IV SCH (23:27)
[2017-04-16] MEDS: Insulin Regular 100 units/ml SC SCH (23:35)
[2017-04-17] MEDS: Insulin Regular 100 units/ml SC SCH ×2 (06:46→11:51)
[2017-04-17 07:12] LABS: HEMATOCRIT 32.8 % (34.0-47.0); MEAN CELL VOLUME 91.1 fl (81.0-99.0); MEAN CORPUSCULAR HEMOGLOBIN 30.7 pg (27.0-31.0); MEAN CORPUSCULAR HGB CONC 33.7 g/dL (33.0-37.0); RED CELL DISTRIBUTION WIDTH 13.5 % (11.5-14.5); WHITE BLOOD COUNT 4.6 K/uL (4.8-10.8)
[2017-04-17 07:27] LABS: BLOOD UREA NITROGEN 13 mg/dl (7-17); CALCIUM 8.7 mg/dL (8.4-10.2); CARBON DIOXIDE 19 mmol/L (22-30); CHLORIDE 108 mmol/L (98-107); CHOLESTEROL 155 mg/dL (0-199); GFR AFRICAN-AMERICAN > 60; GLUCOSE,RANDOM 160 mg/dL (65-105); POTASSIUM 4.6 MMOL/L (3.6-5.0); SODIUM 140 mmol/l (132-148); TOTAL PROTEIN 5.7 G/DL (6.3-8.2)
[2017-04-17 07:28] LABS: ALB/GLOB RATIO 1.2 (1.0-2.1); ALKALINE PHOSPHATASE 110 U/L (38-126); ALT/SGPT 86 U/L (9-52); AST/SGOT 113 U/L (14-36); BILIRUBIN,TOTAL 0.2 mg/dl (0.2-1.3)
[2017-04-17 07:51] LABS: THYROID STIMULATING HORMONE 4.22 mIU/ML (0.46-4.68)
--- NOTE | 2017-04-17 09:45 | CP.CCUPN ---
CCU Subjective - Physician Review Subjective (Free Text): Awake and alert, ambulating to bathroom without difficulty, denies any abdominal pain, dizziness, nausea, headaches, CP or SOB. Remains on IVFs and intermittently placed back on Insulin drip according to protocol, and now off drip this morning. Appetite and PO intake remain excellent. Other vitals and I/O's reviewed. No fever spikes noted. ROS: No other pertinent negs or positives on 10+ system review. PMSFH: All Nursing and physician documentation reviewed to date; no new pertinent info noted relevant to current medical problems. MAJOR PROBLEMS: 1. DKA with DM I, no other concurrent illnesses noted.\ 2. Hypertriglyceridemia PLAN: 1. Improved acidotic state with anion gap normalized. Resume Levemir. 2. HGBa1C. 3. [employer]ing [employer] eval and f/u for recurrent hyperglycemia and frequent DKA episodes. 4. Fenofibrates for HyperTG. CCU Objective - Vital Signs / Intake & Output Vital Signs (Last 4 hours): Vital Signs Temp Pulse Resp BP Pulse Ox 04/17/17 08:00 98.5 F 79 15 126/81 100 04/17/17 06:00 87 20 125/83 100 Intake and Output (Last 8hrs): Intake & Output 04/16/17 04/17/17 04/17/17 22:59 06:59 14:59 Intake Total 650 1068 Balance 650 1068 Intake: IV 530 1068 Oral 120 Other: # Voids Urine, Voided 1 1 - Physical Exam Head: Positive for: Normocephalic Pupils: Positive for: PERRL Extroacular Muscles: Positive for: EOMI Conjunctiva: Negative for: Icteric Mouth: Positive for: Moist Mucous Membranes Pharnyx: Positive for: Normal Neck: Positive for: Normal Range of Motion. Negative for: JVD, Lymphadenopathy Respiratory/Chest: Positive for: Clear to Auscultation. Negative for: Accessory Muscle Use, Wheezes Cardiovascular: Positive for: Regular Rate and Rhythm. Negative for: Murmurs, Rub Abdomen: Positive for: Normal Bowel Sounds. Negative for: Tenderness, Distention Lower Extremity: Positive for: Normal Inspection, NORMAL PULSES. Negative for: Edema, CALF TENDERNESS, Cyanosis Neurological: Positive for: GCS=15, CN II-XII Intact, Motor Func Grossly Intact , Normal Sensory Function Skin: Positive for: Warm. Negative for: Rashes Psychiatric: Positive for: Alert, Oriented x 3 - Medications Active Medications: Active Medications Generic Name Dose Route Start Last Admin Trade Name Freq PRN Reason Stop Dose Admin Dextrose 0 ml 04/14/17 23:33 Dextrose 50% Inj IV STAT PRN Hyglycemia Protocol Protocol Dextrose 0 gm 04/14/17 23:33 Glutose 15 PO ONCE PRN Hypoglycemia Protocol Protocol Glucagon 0 mg 04/14/17 23:33 Glucagen Diagnostic Kit IM STAT PRN Hypoglycemia Protocol Protocol Insulin Human Regular 100 101 mls @ 4.04 mls/hr 04/15/17 20:49 04/17/17 06:58 units/ Sodium Chloride IV 1 units/hr .Q24H [facility]TE 1.01 mls/hr Protocol Titration 4 UNITS/HR Insulin Human Regular 0 units 04/15/17 12:00 04/17/17 06:46 Humulin R SC Not Given ACCU-CHECK [facility]TE Protocol - Patient Studies Lab Studies: Microbiology Studies 04/15/17 00:00 MRSA Culture (Admit) - Final Naris MRSA NOT DETECTED Lab Studies 04/17/17 04/17/17 04/17/17 Range/Units 09:00 06:54 06:00 WBC 4.6 L (4.8-10.8) K/uL RBC 3.60 L (3.80-5.20) Mil/uL Hgb 11.1 L (12.0-16.0) g/dL Hct 32.8 L (34.0-47.0) % MCV 91.1 (81.0-99.0) fl MCH 30.7 (27.0-31.0) pg MCHC 33.7 (33.0-37.0) g/dL RDW 13.5 (11.5-14.5) % Plt Count 279 (130-400) K/uL Sodium (132-148) mmol/l Potassium (3.6-5.0) MMOL/L Chloride (98-107) mmol/L Carbon Dioxide (22-30) mmol/L Anion Gap (10-20) BUN (7-17) mg/dl Creatinine (0.7-1.2) mg/dL Est GFR ( Amer) Est GFR (Non-Af Amer) POC Glucose (mg/dL) 133 H 158 H (65-110) mg/dL Random Glucose (65-105) mg/dL Calcium (8.4-10.2) mg/dL Total Bilirubin (0.2-1.3) mg/dl AST (14-36) U/L ALT (9-52) U/L Alkaline Phosphatase (38-126) U/L Total Protein (6.3-8.2) G/DL Albumin (3.5-5.0) g/dL Globulin (2.2-3.9) gm/dL Albumin/Globulin Ratio (1.0-2.1) Triglycerides (0-149) mg/DL Cholesterol (0-199) mg/dL LDL Cholesterol Direct (0-129) mg/dL HDL Cholesterol (30-70) MG/DL TSH 3rd Generation (0.46-4.68) mIU/ML 04/17/17 04/17/17 04/17/17 Range/Units 06:00 05:24 03:05 WBC (4.8-10.8) K/uL RBC (3.80-5.20) Mil/uL Hgb (12.0-16.0) g/dL Hct (34.0-47.0) % MCV (81.0-99.0) fl MCH (27.0-31.0) pg MCHC (33.0-37.0) g/dL RDW (11.5-14.5) % Plt Count (130-400) K/uL Sodium 140 (132-148) mmol/l Potassium 4.6 (3.6-5.0) MMOL/L Chloride 108 H (98-107) mmol/L Carbon Dioxide 19 L (22-30) mmol/L Anion Gap 18 (10-20) BUN 13 (7-17) mg/dl Creatinine 0.7 (0.7-1.2) mg/dL Est GFR ( Amer) > 60 Est GFR (Non-Af Amer) > 60 POC Glucose (mg/dL) 150 H 203 H (65-110) mg/dL Random Glucose 160 H (65-105) mg/dL Calcium 8.7 (8.4-10.2) mg/dL Total Bilirubin 0.2 (0.2-1.3) mg/dl AST 113 H (14-36) U/L ALT 86 H (9-52) U/L Alkaline Phosphatase 110 (38-126) U/L Total Protein 5.7 L (6.3-8.2) G/DL Albumin 3.1 L (3.5-5.0) g/dL Globulin 2.6 (2.2-3.9) gm/dL Albumin/Globulin Ratio 1.2 (1.0-2.1) Triglycerides 300 H D (0-149) mg/DL Cholesterol 155 (0-199) mg/dL LDL Cholesterol Direct 106 (0-129) mg/dL HDL Cholesterol 37 (30-70) MG/DL TSH 3rd Generation 4.22 (0.46-4.68) mIU/ML 04/17/17 04/16/17 04/16/17 Range/Units 01:11 23:00 21:08 WBC (4.8-10.8) K/uL RBC (3.80-5.20) Mil/uL Hgb (12.0-16.0) g/dL Hct (34.0-47.0) % MCV (81.0-99.0) fl MCH (27.0-31.0) pg MCHC (33.0-37.0) g/dL RDW (11.5-14.5) % Plt Count (130-400) K/uL Sodium (132-148) mmol/l Potassium (3.6-5.0) MMOL/L Chloride (98-107) mmol/L Carbon Dioxide (22-30) mmol/L Anion Gap (10-20) BUN (7-17) mg/dl Creatinine (0.7-1.2) mg/dL Est GFR ( Amer) Est GFR (Non-Af Amer) POC Glucose (mg/dL) 452 H* 91 263 H (65-110) mg/dL Random Glucose (65-105) mg/dL Calcium (8.4-10.2) mg/dL Total Bilirubin (0.2-1.3) mg/dl AST (14-36) U/L ALT (9-52) U/L Alkaline Phosphatase (38-126) U/L Total Protein (6.3-8.2) G/DL Albumin (3.5-5.0) g/dL Globulin (2.2-3.9) gm/dL Albumin/Globulin Ratio (1.0-2.1) Triglycerides (0-149) mg/DL Cholesterol (0-199) mg/dL LDL Cholesterol Direct (0-129) mg/dL HDL Cholesterol (30-70) MG/DL TSH 3rd Generation (0.46-4.68) mIU/ML 04/16/17 04/16/17 04/16/17 Range/Units 19:02 17:07 15:27 WBC (4.8-10.8) K/uL RBC (3.80-5.20) Mil/uL Hgb (12.0-16.0) g/dL Hct (34.0-47.0) % MCV (81.0-99.0) fl MCH (27.0-31.0) pg MCHC (33.0-37.0) g/dL RDW (11.5-14.5) % Plt Count (130-400) K/uL Sodium (132-148) mmol/l Potassium (3.6-5.0) MMOL/L Chloride (98-107) mmol/L Carbon Dioxide (22-30) mmol/L Anion Gap (10-20) BUN (7-17) mg/dl Creatinine (0.7-1.2) mg/dL Est GFR ( Amer) Est GFR (Non-Af Amer) POC Glucose (mg/dL) 215 H 192 H 400 H* (65-110) mg/dL Random Glucose (65-105) mg/dL Calcium (8.4-10.2) mg/dL Total Bilirubin (0.2-1.3) mg/dl AST (14-36) U/L ALT (9-52) U/L Alkaline Phosphatase (38-126) U/L Total Protein (6.3-8.2) G/DL Albumin (3.5-5.0) g/dL Globulin (2.2-3.9) gm/dL Albumin/Globulin Ratio (1.0-2.1) Triglycerides (0-149) mg/DL Cholesterol (0-199) mg/dL LDL Cholesterol Direct (0-129) mg/dL HDL Cholesterol (30-70) MG/DL TSH 3rd Generation (0.46-4.68) mIU/ML 04/16/17 04/16/17 04/16/17 Range/Units 14:20 13:05 11:19 WBC (4.8-10.8) K/uL RBC (3.80-5.20) Mil/uL Hgb (12.0-16.0) g/dL Hct (34.0-47.0) % MCV (81.0-99.0) fl MCH (27.0-31.0) pg MCHC (33.0-37.0) g/dL RDW (11.5-14.5) % Plt Count (130-400) K/uL Sodium 139 (132-148) mmol/l Potassium 5.4 H (3.6-5.0) MMOL/L Chloride 105 (98-107) mmol/L Carbon Dioxide 16 L (22-30) mmol/L Anion Gap 23 H (10-20) BUN 13 (7-17) mg/dl Creatinine 0.6 L (0.7-1.2) mg/dL Est GFR ( Amer) > 60 Est GFR (Non-Af Amer) > 60 POC Glucose (mg/dL) 137 H 245 H (65-110) mg/dL Random Glucose 255 H (65-105) mg/dL Calcium 8.6 (8.4-10.2) mg/dL Total Bilirubin (0.2-1.3) mg/dl AST (14-36) U/L ALT (9-52) U/L Alkaline Phosphatase (38-126) U/L Total Protein (6.3-8.2) G/DL Albumin (3.5-5.0) g/dL Globulin (2.2-3.9) gm/dL Albumin/Globulin Ratio (1.0-2.1) Triglycerides (0-149) mg/DL Cholesterol (0-199) mg/dL LDL Cholesterol Direct (0-129) mg/dL HDL Cholesterol (30-70) MG/DL TSH 3rd Generation (0.46-4.68) mIU/ML Laboratory Results - last 24 hr 04/16/17 04/16/17 04/16/17 11:19 13:05 14:20 WBC RBC Hgb Hct MCV MCH MCHC RDW Plt Count Sodium 139 Potassium 5.4 H Chloride 105 Carbon Dioxide 16 L Anion Gap 23 H BUN 13 Creatinine 0.6 L Est GFR ( Amer) > 60 Est GFR (Non-Af Amer) > 60 POC Glucose (mg/dL) 245 H 137 H Random Glucose 255 H Calcium 8.6 Total Bilirubin AST ALT Alkaline Phosphatase Total Protein Albumin Globulin Albumin/Globulin Ratio Triglycerides Cholesterol LDL Cholesterol Direct HDL Cholesterol TSH 3rd Generation 04/16/17 04/16/17 04/16/17 15:27 17:07 19:02 WBC RBC Hgb Hct MCV MCH MCHC RDW Plt Count Sodium Potassium Chloride Carbon Dioxide Anion Gap BUN Creatinine Est GFR ( Amer) Est GFR (Non-Af Amer) POC Glucose (mg/dL) 400 H* 192 H 215 H Random Glucose Calcium Total Bilirubin AST ALT Alkaline Phosphatase Total Protein Albumin Globulin Albumin/Globulin Ratio Triglycerides Cholesterol LDL Cholesterol Direct HDL Cholesterol TSH 3rd Generation 04/16/17 04/16/17 04/17/17 21:08 23:00 01:11 WBC RBC Hgb Hct MCV MCH MCHC RDW Plt Count Sodium Potassium Chloride Carbon Dioxide Anion Gap BUN Creatinine Est GFR ( Amer) Est GFR (Non-Af Amer) POC Glucose (mg/dL) 263 H 91 452 H* Random Glucose Calcium Total Bilirubin AST ALT Alkaline Phosphatase Total Protein Albumin Globulin Albumin/Globulin Ratio Triglycerides Cholesterol LDL Cholesterol Direct HDL Cholesterol TSH 3rd Generation 04/17/17 04/17/17 04/17/17 03:05 05:24 06:00 WBC RBC Hgb Hct MCV MCH MCHC RDW Plt Count Sodium 140 Potassium 4.6 Chloride 108 H Carbon Dioxide 19 L Anion Gap 18 BUN 13 Creatinine 0.7 Est GFR ( Amer) > 60 Est GFR (Non-Af Amer) > 60 POC Glucose (mg/dL) 203 H 150 H Random Glucose 160 H Calcium 8.7 Total Bilirubin 0.2 AST 113 H ALT 86 H Alkaline Phosphatase 110 Total Protein 5.7 L Albumin 3.1 L Globulin 2.6 Albumin/Globulin Ratio 1.2 Triglycerides 300 H D Cholesterol 155 LDL Cholesterol Direct 106 HDL Cholesterol 37 TSH 3rd Generation 4.22 04/17/17 04/17/17 04/17/17 06:00 06:54 09:00 WBC 4.6 L RBC 3.60 L Hgb 11.1 L Hct 32.8 L MCV 91.1 MCH 30.7 MCHC 33.7 RDW 13.5 Plt Count 279 Sodium Potassium Chloride Carbon Dioxide Anion Gap BUN Creatinine Est GFR ( Amer) Est GFR (Non-Af Amer) POC Glucose (mg/dL) 158 H 133 H Random Glucose Calcium Total Bilirubin AST ALT Alkaline Phosphatase Total Protein Albumin Globulin Albumin/Globulin Ratio Triglycerides Cholesterol LDL Cholesterol Direct HDL Cholesterol TSH 3rd Generation Fingerstick Blood Sugar Results: 158 Review of Systems - Review of Systems All systems: reviewed and no additional remarkable complaints except (as above) Critical Care Progress Note - Nutrition Nutrition: Nutrition Category Date Time Status Consistent Carbohydrate [DIET] Diets 04/15/17 Breakfast Active
--- NOTE | 2017-04-17 12:00 | CARD ---
APPROVED REPORT EKG Measurement Heart [id number] <Conclusion> Sinus tachycardia Nonspecific T wave abnormality Abnormal ECG
[2017-04-17] MEDS: Sodium Chloride 0.45% 1,000 ML IV SCH (13:09)
--- NOTE | 2017-04-17 15:05 | PN ---
DATE: 04/17/2017 SUBJECTIVE: The patient is seen and examined. Interim events noted. Consults noted and appreciated. Sales Representative intervention noted and appreciated. The patient remains in intensive care unit. The patient is awake, responsive, feels okay. Denies any specific complaints. No chest pain. No shortness of breath or dizziness. REVIEW OF SYSTEMS: Negative. PHYSICAL EXAMINATION: GENERAL: The patient is in no acute distress. VITAL SIGNS: Stable. Temperature 98.5, pulse 79, respirations 15 , blood pressure 126/81, saturation 100%. HEART: S1 and S2 normal and regular. LUNGS: Clear bilateral air entry. ABDOMEN: Soft, nontender. EXTREMITIES: No edema. No calf swelling. No tenderness. No acute ischemia. PUBLICITY CONSULTANT: Essentially unchanged. LABORATORY DATA: Diagnostic data available. Diagnostic data reviewed, telemetry monitoring does not reveal significant arrhythmia. WBC 12.2, hemoglobin 11.1, hematocrit 32.8, and platelets 279. Sodium 140, potassium 4.6, chloride 108, bicarbonate 19, BUN 13, and creatinine 0.7. Accu-Cheks 452, 203, 150 and 158. SMA-12 is unremarkable. ASSESSMENT AND PLAN: Overall, the patient's general medication condition is stable. Plan as ordered. Case and plan was discussed with the patient. Carlos Roy MD
[2017-04-17] MEDS: Insulin Lispro (humaLOG) 100 Units/ml Inj SC SCH ×3 (17:03→23:00)
[2017-04-17] MEDS ORDERED: Insulin Detemir 100 Units/ml Inj SC SCH (22:00)
[2017-04-18 06:52] LABS: HEMATOCRIT 33.7 % (34.0-47.0); MEAN CELL VOLUME 92.5 fl (81.0-99.0); MEAN CORPUSCULAR HEMOGLOBIN 30.1 pg (27.0-31.0); MEAN CORPUSCULAR HGB CONC 32.6 g/dL (33.0-37.0); RED CELL DISTRIBUTION WIDTH 13.6 % (11.5-14.5); WHITE BLOOD COUNT 4.6 K/uL (4.8-10.8)
[2017-04-18 07:06] LABS: ALB/GLOB RATIO 1.2 (1.0-2.1); ALKALINE PHOSPHATASE 107 U/L (38-126); ALT/SGPT 104 U/L (9-52); AST/SGOT 186 U/L (14-36); BILIRUBIN,TOTAL 0.3 mg/dl (0.2-1.3); BLOOD UREA NITROGEN 17 mg/dl (7-17); CALCIUM 8.8 mg/dL (8.4-10.2); CARBON DIOXIDE 20 mmol/L (22-30); CHLORIDE 106 mmol/L (98-107); GFR AFRICAN-AMERICAN > 60; GLUCOSE,RANDOM 103 mg/dL (65-105); POTASSIUM 3.9 MMOL/L (3.6-5.0); SODIUM 143 mmol/l (132-148)
[2017-04-18] MEDS ORDERED: Insulin Lispro (humaLOG) 100 Units/ml Inj SC SCH (07:30)
[2017-04-18] MEDS: Insulin Lispro (humaLOG) 100 Units/ml Inj SC SCH (08:33)
[2017-04-18 08:39] VITALS: BP 115/74; PULSE 89; RESP 20; TEMP 98; O2SAT 98
[2017-04-18] MEDS: Sodium Chloride 0.45% 1,000 ML IV SCH (09:56)
--- NOTE | 2017-04-18 17:57 | PN ---
ENDO FOLLOWUP NOTE DATE: LOCATION: Room #421 ICU. This is an 26-year-old female with recent uncontrolled type 1 insulin-dependent diabetes, now being followed closely for metabolic management. She presented here with diabetic ketoacidosis and dehydration, most likely related to too adherence for insulin regimen. Her glycemic levels are fluctuating and today's glucose values have ranged from 133 to 495 and 308 mg/dL. Her latest chemistry showed a BUN of 13, sodium 140, potassium 4.6, chloride 108, CO2 of 19, glucose 160 and creatinine 0.7. Her serum triglyceride level is 300 with a cholesterol of 155. This is related to very poor metabolic control of her diabetic condition as noted. So, at this time, we will discontinue the insulin drip infusion, as she is out of acidosis at this time and we will basal and bolus insulin regimen as ordered. We will start her with Humalog given as 12 units subcutaneously t.i.d. before meals day as ordered. We will also add Levemir given a basal insulin of 20 units subcutaneously at bedtime daily as given. We will titrate incrementally as indicated to optimize metabolic control. We will also modify the coverage scale to a very low dose as directed using Humalog insulin to alejandra hypoglycemia and filled orders have been given. We will follow and advice accordingly. Monet Gallego MD
--- NOTE | 2017-04-19 02:08 | PN ---
DATE: 04/18/2017 SUBJECTIVE: The patient is seen and examined. Interim events noted. Consults noted and appreciated. Top Inventory Control Executive intervention noted and appreciated. The patient remains in intensive care unit. The patient feels okay. No chest pain. No shortness of breath. PHYSICAL EXAMINATION: GENERAL: The patient is in no acute distress. VITAL SIGNS: Stable. HEART: S1 and S2, normal and regular. LUNGS: Good bilateral air exchange. ABDOMEN: Soft and nontender. EXTREMITIES: No edema. No calf swelling. No tenderness. No acute ischemia. CENTRAL NERVOUS SYSTEMS: Exam is essentially unchanged. DIAGNOSTIC DATA: Available diagnostic data reviewed. Telemetry monitoring does not show significant arrhythmias. Accu-Cheks are acceptable. IMPRESSION: Overall, the patient's general medical condition is stable. PLAN: As ordered. Carlos Roy MD
--- NOTE | 2017-04-19 03:26 | PN ---
ENDO FOLLOWUP NOTE Room #421. This is a 26-year-old female with recent uncontrolled type 1 insulin-dependent diabetes, now being followed closely for metabolic management. Her glycemic levels are fluctuating, but much improved at this time, and the latest glucose levels have ranged from 120-154 mg/dL. Her latest chemistry showed a BUN of 17, sodium 143, potassium 3.9, chloride 106, CO2 20, glucose 103 and creatinine 0.6, so at this time we will continue the same basal and bolus insulin regimen as recommended with Humalog to be given as 12 units subcu t.i.d. before meals as ordered. We will also continue the Levemir given as 20 units subcu at bedtime daily as given. We will titrate incrementally as indicated to optimize metabolic control. We will once again call the [employer] regarding the use and the initiation of her insulin pump to optimize her metabolic control on the outpatient. Monet Gallego MD
--- NOTE | 2017-04-19 08:34 | CON ---
DATE: HISTORY OF PRESENT ILLNESS: This is a 26-year-old female with recent uncontrolled type 1 insulin-dependent diabetes, presented here with generalized body weakness, some intractable nausea, dyspepsia, and vomiting and is now being referred for endocrine evaluation and management. The patient insulin pump and is now has had not so far yet started the insulin pump, insertion is recommended and is now being referred to endocrine evaluation and management. PAST MEDICAL HISTORY: As mentioned above, he has history of type 1 insulin-dependent diabetes, currently on a combination of Toujeo given as 30 units subcu at bedtime daily with Humalog given as a variable dose of 20 units t.i.d. before meal was given. FAMILY HISTORY: Positive for hypertension and diabetes. SOCIAL HISTORY: The patient has a supportive family. No known substance use. REVIEW OF SYSTEMS: As mentioned above. Admits to generalized body weakness with easy fatigability and tiredness and suboptimal energy level. Also has history of dizziness and lightheadedness, worse on the day of admission. Moreover, also admits to recent precordial chest pain and progressive shortness of breath, especially on exertion. Her oral intake has been variable with nausea, dyspepsia, and vague upper abdominal pain with , vomiting and diarrhea as noted. PHYSICAL EXAMINATION: GENERAL: This is an average built female in no apparent distress. VITAL SIGNS: Blood pressure of 140/80, pulse of 70 beats per minute and regular, temperature 98, respirations 20, height is 5 feet 3 inches, weight is 128 pounds. HEENT: Head is normocephalic. Eyes anicteric with pink conjunctivae. Funduscopy not possible at this time. Ears, nose, and throat otherwise normal. NECK: Supple. Thyroid gland is normal in size. No carotid bruits or any cervical adenopathy. CARDIOPULMONARY: Some adynamic precordium. S1, S2 is rapid and regular. LUNGS: Clear to auscultation. ABDOMEN: Flat, soft with positive bowel sounds. EXTREMITIES: No peripheral edema. Pulses are +2 bilaterally. LABORATORY DATA: Her latest chemistry showed a BUN of 17, sodium 135, potassium 4.8, chloride 98, CO2 was 10, glucose was 635, and creatinine 0.8. Her glucose levels today have ranged from 361-500 mg/dL. CO2 actually was 5 at present. ASSESSMENT: This is a 26-year-old female with uncontrolled and decompensated type 1 insulin-dependent diabetes . We will also continue the vigorous IV hydration with potassium supplementation as given. We will follow. Monet Gallego MD
== END 2017-04-18 10:49 | disposition home or self-care (01) | DRG 295 ==
LOC: H.ER 22:38 → H.ERHOLD 04-15 00:22 → H.ICU/CCU 04-15 02:31
PROVIDERS: ADMIT Internal Medicine; ATTEND Internal Medicine
DX: E10.10 Type 1 diabetes mellitus with ketoacidosis without coma (principal); E10.649 Type 1 diabetes mellitus with hypoglycemia without coma; E86.0 Dehydration; I10 Essential (primary) hypertension; Z79.4 Long term (current) use of insulin; J40 Bronchitis, not specified as acute or chronic; Z91.19 Patient's noncompliance with other medical treatment and regimen

== ENCOUNTER 2017-04-28 16:59 | Inpatient (IN) | payer OTHER ==
[2017-04-28 16:59] VITALS: BMI 21.2
[2017-04-28] MEDS ORDERED: Sodium Chloride 0.9% 1,000 ML IV STA ×3 (17:41→18:19)
--- NOTE | 2017-04-28 18:00 | ED PDOC ---
Hyperglycemia/Hypoglycemia Time Seen by Provider: 04/28/17 17:07 Chief Complaint (Nursing): High Blood Sugar Chief Complaint (Provider): High Blood Sugar History Per: Patient History/Exam Limitations: no limitations Onset/Duration Of Symptoms: Days (x1) Current Symptoms Are (Timing): Still Present : The patient does not have any of the infectious symptoms listed except for those marked. Additional Complaint(s): Concepcion Zuniga is a 26 year old female with previous medical history of diabetes, who presents to the emergency department with a complaint of nausea associated with polyuria and polydipsia ongoing for one day. Denied vomiting or abdominal pain. Patient was seen earlier today at [facility] for similar symptoms but signed out AMA. Upon using her Accucheck at home, patient noted sugar remained high which prompted her to come back to ED. PMD: none provided Past Medical History Reviewed: Historical Data, Nursing Documentation, Vital Signs Vital Signs: Last Vital Signs Temp 98.0 F 04/28/17 17:01 Pulse 116 H 04/28/17 17:01 Resp 16 04/28/17 17:01 BP 110/63 04/28/17 17:01 Pulse Ox 100 04/28/17 17:01 - Medical History PMH: Bronchitis, Diabetes Denies: Anxiety, Bipolar Disorder, Depression, HIV, Paranoia, Post Traumatic Stress Disorder, Chronic Kidney Disease, Schizophrenia - Surgical History Surgical History: - Family History Family History: States: Unknown Family Hx - Immunization History Hx Tetanus Toxoid Vaccination: No Hx Influenza Vaccination: No Hx Pneumococcal Vaccination: No - Home Medications Home Medications: Ambulatory Orders Medication Instructions Recorded Insulin Lispro [humALOG] 10 unit SC ASDIR 11/05/16 Insulin Lispro [humALOG] 20 - 30 unit SC ACTID 11/05/16 - Allergies Allergies/Adverse Reactions: Allergies Allergy/AdvReac Type Severity Reaction Status Date / Time apple Allergy SWELLING Verified 04/28/17 17:01 Review of Systems ROS Statement: Except As Marked, All Systems Reviewed And Found Negative Gastrointestinal: Positive for: Nausea, Other (polydipsia). Negative for: Vomiting, Abdominal Pain Genitourinary Female: Positive for: Frequency Physical Exam - Reviewed Nursing Documentation Reviewed: Yes Vital Signs Reviewed: Yes - Physical Exam Appears: Positive for: Well, Non-toxic, No Acute Distress Head Exam: Positive for: ATRAUMATIC, NORMAL INSPECTION, NORMOCEPHALIC Skin: Positive for: Normal Color Eye Exam: Positive for: Normal appearance ENT: Positive for: Normal ENT Inspection Neck: Positive for: Normal Cardiovascular/Chest: Positive for: Regular Rate, Rhythm. Negative for: Chest Non Tender Respiratory: Positive for: Normal Breath Sounds, Accessory Muscle Use. Negative for: Decreased Breath Sounds, Respiratory Distress Gastrointestinal/Abdominal: Positive for: Normal Exam, Bowel Sounds, Soft. Negative for: Tenderness Extremity: Positive for: Normal ROM. Negative for: Tenderness, Pedal Edema, Calf Tenderness, Deformity Neurologic/Psych: Positive for: Alert, Oriented - Laboratory Results Result Diagrams: 05/01/17 05:30 05/01/17 05:30 - ECG O2 Sat by Pulse Oximetry: 100 (RA) Pulse Ox Interpretation: Normal - Physician Consult Information Time Consulting Physican Contacted: 19:36 Physician Contacted: Monet Gallego Outcome Of Conversation: Agrees with second amp HCO3 and maintenance NS @ 200 cc/hr after boluses. - Critical Care Total Time (In Min): 30 Medical Decision Making Medical Decision Making: Initial Impression: Hyperglycemia R/O diabetic ketoacidosis Initial Plan: * VBG * EKG * CMP * Troponin I * Urine * Urine dipstick * CBC * NS 1,000ml IV per 1,000mls/hr * Zofran inj 4mg IV * Accucheck * Urinalysis Scribe Attestation: Documented by Monet Sauceda, acting as a scribe for Sarah Whitney MD. Provider Scribe Attestation: All medical record entries made by the Scribe were at my direction and personally dictated by me. I have reviewed the chart and agree that the record accurately reflects my personal performance of the history, physical exam, medical decision making, and the department course for this patient. I have also personally directed, reviewed, and agree with the discharge instructions and disposition. Disposition - Clinical Impression Clinical Impression: DKA (diabetic ketoacidoses) - Patient ED Disposition Is Patient to be Admitted: Yes - Disposition Disposition Time: 19:43 Condition: CRITICAL - Pt Status Changed To: Hospital Disposition Of: Inpatient - Admit Certification Admit to Inpatient:: After my assessment, the patient will require hospitalization for at least two midnights. This is because of the severity of symptoms shown, intensity of services needed, and/or the medical risk in this patient being treated as an outpatient. - POA Present On Arrival: Poor Glycemic Control
[2017-04-28 18:15] LABS: VENOUS BLOOD GAS BASE EXCESS -24.3 mmol/L (0.0-2.0); VENOUS BLOOD GAS PCO2 18 mmHg (40-60); VENOUS BLOOD PH 7.03 (7.32-7.43)
[2017-04-28 18:15] LABS: BASO # 0.1 K/uL (0.0-0.2); BASO % 0.7 % (0.0-2.0); EOS % 0.2 % (0.0-4.0); HEMATOCRIT 44.7 % (34.0-47.0); LYMPH # 1.3 K/uL (1.0-4.3); LYMPH % 12.5 % (20.0-40.0); MEAN CELL VOLUME 103.5 fl (81.0-99.0); MEAN CORPUSCULAR HEMOGLOBIN 29.9 pg (27.0-31.0); MEAN CORPUSCULAR HGB CONC 28.9 g/dL (33.0-37.0); MEAN PLATELET VOLUME 7.8 fl (7.2-11.7); MONO # 0.4 K/uL (0.0-0.8); MONO % 3.6 % (0.0-10.0); NEUT # 8.5 K/uL (1.8-7.0); RED CELL DISTRIBUTION WIDTH 16.1 % (11.5-14.5); WHITE BLOOD COUNT 10.3 K/uL (4.8-10.8)
[2017-04-28] MEDS ORDERED: Sodium Bicarbonate 7.5% (0.9 MEQ/ML) 50ML INJ IV STA ×2 (18:19→19:30)
[2017-04-28] MEDS ORDERED: Glucagon Recombinant 1 mg Inj IM PRN (18:21)
[2017-04-28] MEDS ORDERED: Dextrose 50% SYRINGE Inj (50 ml) IV PRN (18:21)
[2017-04-28 18:22] LABS: RBC URINE 3 /hpf (0-3); URINE BILIRUBIN NEGATIVE (NEGATIVE); URINE BLOOD SMALL (NEGATIVE); URINE COLOR COLORLESS (YELLOW); URINE GLUCOSE (UA) >=500 mg/dL (Normal); URINE KETONE 80 mg/dL (NEGATIVE); URINE LEUKOCYTE ESTERASE NEG Leu/uL (Negative); URINE PROTEIN NEGATIVE (NEGATIVE); URINE UROBILINOGEN 0.2-1.0 mg/dL (0.2-1.0); WBC URINE 1 /hpf (0-5)
[2017-04-28] MEDS ORDERED: Insulin Regular 100 UNITS in Sodium Chloride 0.9% 100 ML IV SCH ×2 (18:30→18:45)
[2017-04-28 19:10] LABS: ALB/GLOB RATIO 1.5 (1.0-2.1); ALKALINE PHOSPHATASE 158 U/L (38-126); ALT/SGPT 98 U/L (9-52); AST/SGOT 91 U/L (14-36); BILIRUBIN,TOTAL 0.4 mg/dl (0.2-1.3); BLOOD UREA NITROGEN 13 mg/dl (7-17); CALCIUM 8.3 mg/dL (8.4-10.2); CHLORIDE 101 mmol/L (98-107); GFR AFRICAN-AMERICAN > 60; POTASSIUM 5.4 MMOL/L (3.6-5.0); SODIUM 139 mmol/l (132-148)
[2017-04-28 19:26] LABS: CARBON DIOXIDE < 5 mmol/L (22-30); GLUCOSE,RANDOM 795 mg/dL (65-105)
[2017-04-28] MEDS ORDERED: Sodium Chloride 0.9% 1,000 ML IV SCH (20:45)
--- NOTE | 2017-04-28 22:13 | CP.CCUPN ---
CCU Subjective - Physician Review Subjective (Free Text): Consultation for ICU admission: 26F with multiple admissions over the past 2 months with q1-2 weekly admissions for recurrent DKA, again admitted via ER for recurrent DKA with pH 7.03, blood glucose above 750 and bicarb level of 18 from VBG results. She is awake and alert, has + nausea, has not vomited yet but admits to polydipsia and polyuria. She denies any new or concurrent illnesses, no fevers, chills, abdominal pain, dizziness, headaches, visual changes, palpitations, CP or SOB, nor any focal motor weakness. In ER, so far has been given 1 liter IVF NSS. She is tachycardic with HR 116, BP normotensive in her usual range, and no fever noted. Other vitals and I/O's reviewed. ROS: No other pertinent negs or positives on 10+ system review. [facility] Nursing and physician documentation reviewed to date; no new pertinent info noted relevant to current medical problems. MAJOR PROBLEMS: 1. Recurrent DKA 2. Mild Hyperkalemia PLAN: 1. IV hydration and insulin drip until metab acidosis and anion gap normalizes. K levels should decrease as acidosis improves with insulin and IVF therapy. There has been no ectopy nor any malignant arryhthmias. No need for specific potassium lowering agents now. 2. Serial lactates till normalized. No evidence of Septic physiology nor hypoperfusional state. 3. Follow repeat K, check serum Mag / Phos levels. 4. Neurochecks and seizure precautions in ICU. 5. Endocrine eval. Last HGBA1c was 10.5% and usually in 9.5 - 9.8% range since December 2106. Would consider other etiologies for DKA recurrences: family, psychosocial issues. CCU Objective - Vital Signs / Intake & Output Vital Signs (Last 4 hours): Vital Signs Pulse Resp BP Pulse Ox 04/28/17 20:45 118 H 22 138/78 04/28/17 20:19 118 H 22 138/78 100 04/28/17 19:36 100 Intake and Output (Last 8hrs): Intake & Output 04/28/17 04/28/17 04/28/17 06:59 14:59 22:59 Weight 117 lb - Physical Exam Head: Positive for: Normocephalic Pupils: Positive for: PERRL Extroacular Muscles: Positive for: EOMI Conjunctiva: Negative for: Icteric Mouth: Positive for: Dry Neck: Negative for: Meningeal Signs, JVD Respiratory/Chest: Positive for: Clear to Auscultation. Negative for: Accessory Muscle Use, Wheezes Cardiovascular: Positive for: Regular Rate and Rhythm, Tachycardic. Negative for: Murmurs, Rub Abdomen: Positive for: Normal Bowel Sounds. Negative for: Tenderness, Distention Lower Extremity: Positive for: Normal Inspection, NORMAL PULSES, Capillary Refill < 2 s. Negative for: Edema, CALF TENDERNESS, Cyanosis Neurological: Positive for: GCS=15, Motor Func Grossly Intact, Normal Sensory Function Skin: Positive for: Warm. Negative for: Rashes Psychiatric: Positive for: Alert, Oriented x 3, Normal Concentration, Normal Affect - Medications Active Medications: Active Medications Generic Name Dose Route Start Last Admin Trade Name Freq PRN Reason Stop Dose Admin Dextrose 0 ml 04/28/17 18:21 Dextrose 50% Inj IV STAT PRN Hyglycemia Protocol Protocol Dextrose 0 gm 04/28/17 18:21 Glutose 15 PO ONCE PRN Hypoglycemia Protocol Protocol Glucagon 0 mg 04/28/17 18:21 Glucagen Diagnostic Kit IM STAT PRN Hypoglycemia Protocol Protocol Insulin Human Regular 100 101 mls @ 5.36 mls/hr 04/28/17 18:45 04/28/17 18:56 units/ Sodium Chloride IV 5.36 mls/hr .[id number] LANETTE Administration Protocol 0.1 UNITS/KG/HR Sodium Chloride 1,000 mls @ 125 mls/hr 04/28/17 20:45 Sodium Chloride 0.9% IV 04/29/17 20:32 .Q8H LANETTE Ibuprofen 400 mg 04/28/17 20:35 Motrin Tab PO Q6H PRN Pain, moderate (4-7) Metoclopramide HCl 10 mg 04/28/17 20:35 Reglan IVP Q6H PRN Nausea/Vomiting - Patient Studies Lab Studies: Lab Studies 04/28/17 04/28/17 04/28/17 Range/Units 18:46 18:08 18:00 WBC (4.8-10.8) K/uL RBC (3.80-5.20) Mil/uL Hgb (12.0-16.0) g/dL Hct (34.0-47.0) % MCV (81.0-99.0) fl MCH (27.0-31.0) pg MCHC (33.0-37.0) g/dL RDW (11.5-14.5) % Plt Count (130-400) K/uL MPV (7.2-11.7) fl Neut % (Auto) (50.0-75.0) % Lymph % (Auto) (20.0-40.0) % [place] % (Auto) (0.0-10.0) % Eos % (Auto) (0.0-4.0) % Baso % (Auto) (0.0-2.0) % Neut # (1.8-7.0) K/uL Lymph # (1.0-4.3) K/uL [place] # (0.0-0.8) K/uL Eos # (0.0-0.7) K/uL Baso # (0.0-0.2) K/uL pO2 49 (30-55) mm/Hg VBG pH 7.03 L* (7.32-7.43) VBG pCO2 18 L* (40-60) mmHg VBG HCO3 5.0 mmol/L VBG Total CO2 5.4 L (22-28) mmol/L VBG O2 Sat (Calc) 78.8 H (40-65) % VBG Base Excess -24.3 L (0.0-2.0) mmol/L VBG Potassium 5.4 H (3.6-5.2) mmol/L Sodium 139 132.0 (132-148) mmol/L Chloride 101 90.0 L (98-107) mmol/L Glucose > 750 H* (65-105) mg/dL Lactate 2.9 H (0.7-2.1) mmol/L FiO2 21.0 % Blood Gas Comments Lactate 2.9 Crit Value Called To marco antonio Severino Crit Value Called By 203 Crit Value Read Back Y Blood Gas Notified Time 181 Potassium 5.4 H (3.6-5.0) MMOL/L Carbon Dioxide < 5 L* D (22-30) mmol/L Anion Gap 38 H (10-20) BUN 13 (7-17) mg/dl Creatinine 0.8 (0.7-1.2) mg/dL Est GFR ( Amer) > 60 Est GFR (Non-Af Amer) > 60 Random Glucose 795 H* D (65-105) mg/dL Calcium 8.3 L (8.4-10.2) mg/dL Total Bilirubin 0.4 (0.2-1.3) mg/dl AST 91 H D (14-36) U/L ALT 98 H (9-52) U/L Alkaline Phosphatase 158 H D (38-126) U/L Total Protein 7.0 (6.3-8.2) G/DL Albumin 4.2 (3.5-5.0) g/dL Globulin 2.7 (2.2-3.9) gm/dL Albumin/Globulin Ratio 1.5 (1.0-2.1) Venous Blood Potassium 5.4 H (3.6-5.2) mmol/L Urine Color Colorless (YELLOW) Urine Clarity Clear (Clear) Urine pH 6.0 (5.0-8.0) Ur Specific [place] 1.023 (1.003-1.030) Urine Protein Negative (NEGATIVE) mg/dL Urine Glucose (UA) >=500 (Normal) mg/dL Urine Ketones 80 (NEGATIVE) mg/dL Urine Blood Small (NEGATIVE) Urine Nitrate Negative (NEGATIVE) Urine Bilirubin Negative (NEGATIVE) Urine Urobilinogen 0.2-1.0 (0.2-1.0) mg/dL Ur Leukocyte Esterase Neg (Negative) Dian/uL Urine RBC (Auto) 3 (0-3) /hpf Urine Microscopic WBC 1 (0-5) /hpf Ur Squamous Epith Cells 1 (0-5) /hpf 04/28/17 Range/Units 18:00 WBC 10.3 D (4.8-10.8) K/uL RBC 4.31 (3.80-5.20) Mil/uL Hgb 12.9 (12.0-16.0) g/dL Hct 44.7 (34.0-47.0) % MCV 103.5 H D (81.0-99.0) fl MCH 29.9 (27.0-31.0) pg MCHC 28.9 L (33.0-37.0) g/dL RDW 16.1 H (11.5-14.5) % Plt Count 432 H D (130-400) K/uL MPV 7.8 (7.2-11.7) fl Neut % (Auto) 83.0 H (50.0-75.0) % Lymph % (Auto) 12.5 L (20.0-40.0) % [place] % (Auto) 3.6 (0.0-10.0) % Eos % (Auto) 0.2 (0.0-4.0) % Baso % (Auto) 0.7 (0.0-2.0) % Neut # 8.5 H (1.8-7.0) K/uL Lymph # 1.3 (1.0-4.3) K/uL [place] # 0.4 (0.0-0.8) K/uL Eos # 0.0 (0.0-0.7) K/uL Baso # 0.1 (0.0-0.2) K/uL pO2 (30-55) mm/Hg VBG pH (7.32-7.43) VBG pCO2 (40-60) mmHg VBG HCO3 mmol/L VBG Total CO2 (22-28) mmol/L VBG O2 Sat (Calc) (40-65) % VBG Base Excess (0.0-2.0) mmol/L VBG Potassium (3.6-5.2) mmol/L Sodium (132-148) mmol/L Chloride (98-107) mmol/L Glucose (65-105) mg/dL Lactate (0.7-2.1) mmol/L FiO2 % Blood Gas Comments Crit Value Called To Crit Value Called By Crit Value Read Back Blood Gas Notified Time Potassium (3.6-5.0) MMOL/L Carbon Dioxide (22-30) mmol/L Anion Gap (10-20) BUN (7-17) mg/dl Creatinine (0.7-1.2) mg/dL Est GFR ( Amer) Est GFR (Non-Af Amer) Random Glucose (65-105) mg/dL Calcium (8.4-10.2) mg/dL Total Bilirubin (0.2-1.3) mg/dl AST (14-36) U/L ALT (9-52) U/L Alkaline Phosphatase (38-126) U/L Total Protein (6.3-8.2) G/DL Albumin (3.5-5.0) g/dL Globulin (2.2-3.9) gm/dL Albumin/Globulin Ratio (1.0-2.1) Venous Blood Potassium (3.6-5.2) mmol/L Urine Color (YELLOW) Urine Clarity (Clear) Urine pH (5.0-8.0) Ur Specific [place] (1.003-1.030) Urine Protein (NEGATIVE) mg/dL Urine Glucose (UA) (Normal) mg/dL Urine Ketones (NEGATIVE) mg/dL Urine Blood (NEGATIVE) Urine Nitrate (NEGATIVE) Urine Bilirubin (NEGATIVE) Urine Urobilinogen (0.2-1.0) mg/dL Ur Leukocyte Esterase (Negative) Dian/uL Urine RBC (Auto) (0-3) /hpf Urine Microscopic WBC (0-5) /hpf Ur Squamous Epith Cells (0-5) /hpf Laboratory Results - last 24 hr 04/28/17 04/28/17 04/28/17 18:00 18:00 18:08 WBC 10.3 D RBC 4.31 Hgb 12.9 Hct 44.7 MCV 103.5 H D MCH 29.9 MCHC 28.9 L RDW 16.1 H Plt Count 432 H D MPV 7.8 Neut % (Auto) 83.0 H Lymph % (Auto) 12.5 L [place] % (Auto) 3.6 Eos % (Auto) 0.2 Baso % (Auto) 0.7 Neut # 8.5 H Lymph # 1.3 [place] # 0.4 Eos # 0.0 Baso # 0.1 pO2 49 VBG pH 7.03 L* VBG pCO2 18 L* VBG HCO3 5.0 VBG Total CO2 5.4 L VBG O2 Sat (Calc) 78.8 H VBG Base Excess -24.3 L VBG Potassium 5.4 H Sodium 132.0 Chloride 90.0 L Glucose > 750 H* Lactate 2.9 H FiO2 21.0 Blood Gas Comments Lactate 2.9 Crit Value Called To marco antonio Severino Crit Value Called By 203 Crit Value Read Back Y Blood Gas Notified Time 1814 Potassium Carbon Dioxide Anion Gap BUN Creatinine Est GFR ( Amer) Est GFR (Non-Af Amer) Random Glucose Calcium Total Bilirubin AST ALT Alkaline Phosphatase Total Protein Albumin Globulin Albumin/Globulin Ratio Venous Blood Potassium 5.4 H Urine Color Colorless Urine Clarity Clear Urine pH 6.0 Ur Specific [place] 1.023 Urine Protein Negative Urine Glucose (UA) >=500 Urine Ketones 80 Urine Blood Small Urine Nitrate Negative Urine Bilirubin Negative Urine Urobilinogen 0.2-1.0 Ur Leukocyte Esterase Neg Urine RBC (Auto) 3 Urine Microscopic WBC 1 Ur Squamous Epith Cells 1 04/28/17 18:46 WBC RBC Hgb Hct MCV MCH MCHC RDW Plt Count MPV Neut % (Auto) Lymph % (Auto) [place] % (Auto) Eos % (Auto) Baso % (Auto) Neut # Lymph # [place] # Eos # Baso # pO2 VBG pH VBG pCO2 VBG HCO3 VBG Total CO2 VBG O2 Sat (Calc) VBG Base Excess VBG Potassium Sodium 139 Chloride 101 Glucose Lactate FiO2 Blood Gas Comments Crit Value Called To Crit Value Called By Crit Value Read Back Blood Gas Notified Time Potassium 5.4 H Carbon Dioxide < 5 L* D Anion Gap 38 H BUN 13 Creatinine 0.8 Est GFR ( Amer) > 60 Est GFR (Non-Af Amer) > 60 Random Glucose 795 H* D Calcium 8.3 L Total Bilirubin 0.4 AST 91 H D ALT 98 H Alkaline Phosphatase 158 H D Total Protein 7.0 Albumin 4.2 Globulin 2.7 Albumin/Globulin Ratio 1.5 Venous Blood Potassium Urine Color Urine Clarity Urine pH Ur Specific [place] Urine Protein Urine Glucose (UA) Urine Ketones Urine Blood Urine Nitrate Urine Bilirubin Urine Urobilinogen Ur Leukocyte Esterase Urine RBC (Auto) Urine Microscopic WBC Ur Squamous Epith Cells EKG/Cardiology Interpretations (Free Text): EKG: (my interp)- Sinus 118/min, no acute changes, no peaked T waves. Fingerstick Blood Sugar Results: 750 Critical Care Progress Note - Nutrition Nutrition: Nutrition Category Date Time Status NPO Diet [DIET] Diets 04/28/17 Breakfast Active
[2017-04-28 23:54] LABS: BLOOD UREA NITROGEN 10 mg/dl (7-17); CALCIUM 7.7 mg/dL (8.4-10.2); CHLORIDE 111 mmol/L (98-107); GFR AFRICAN-AMERICAN > 60; GLUCOSE,RANDOM 148 mg/dL (65-105); POTASSIUM 4.1 MMOL/L (3.6-5.0); SODIUM 144 mmol/l (132-148)
[2017-04-29 00:03] LABS: CARBON DIOXIDE 7 mmol/L (22-30)
[2017-04-29] MEDS: Dextrose 5%/0.9% NS 1,000 ML IV SCH ×3 (00:25→08:23)
[2017-04-29] MEDS: Potassium CL 10mEq/100ml 100 ML IVPB SCH ×2 (00:37→02:07)
[2017-04-29 02:21] LABS: VENOUS BLOOD GAS BASE EXCESS -12.3 mmol/L (0.0-2.0); VENOUS BLOOD GAS PCO2 25 mmHg (40-60)
[2017-04-29 03:04] LABS: BLOOD UREA NITROGEN 8 mg/dl (7-17); CALCIUM 7.6 mg/dL (8.4-10.2); CARBON DIOXIDE 12 mmol/L (22-30); CHLORIDE 112 mmol/L (98-107); GFR AFRICAN-AMERICAN > 60; GLUCOSE,RANDOM 195 mg/dL (65-105); POTASSIUM 3.9 MMOL/L (3.6-5.0); SODIUM 142 mmol/l (132-148)
[2017-04-29 05:42] LABS: HEMATOCRIT 31.1 % (34.0-47.0); MEAN CELL VOLUME 93.3 fl (81.0-99.0); MEAN CORPUSCULAR HEMOGLOBIN 30.6 pg (27.0-31.0); MEAN CORPUSCULAR HGB CONC 32.8 g/dL (33.0-37.0); RED CELL DISTRIBUTION WIDTH 13.9 % (11.5-14.5); WHITE BLOOD COUNT 8.8 K/uL (4.8-10.8)
[2017-04-29 05:46] LABS: ALB/GLOB RATIO 1.1 (1.0-2.1); ALKALINE PHOSPHATASE 97 U/L (38-126); ALT/SGPT 79 U/L (9-52); AST/SGOT 78 U/L (14-36); BILIRUBIN,TOTAL 0.3 mg/dl (0.2-1.3); BLOOD UREA NITROGEN 7 mg/dl (7-17); CALCIUM 7.2 mg/dL (8.4-10.2); CARBON DIOXIDE 13 mmol/L (22-30); CHLORIDE 111 mmol/L (98-107); CHOLESTEROL 131 mg/dL (0-199); GFR AFRICAN-AMERICAN > 60; GLUCOSE,RANDOM 234 mg/dL (65-105); MAGNESIUM 1.7 MG/DL (1.6-2.3); PHOSPHOROUS 1.7 mg/dl (2.5-4.5); POTASSIUM 3.2 MMOL/L (3.6-5.0); SODIUM 141 mmol/l (132-148); TOTAL PROTEIN 5.6 G/DL (6.3-8.2)
[2017-04-29 06:03] LABS: T4 5.03 ug/dl (5.5-11.0)
[2017-04-29] MEDS ORDERED: Potassium Chloride 20 mEq ER Tab PO ONE (06:13)
[2017-04-29] MEDS ORDERED: Magnesium Sulfate 2 GM in Sodium Chloride 0.9% 100 ML IVPB ONE (06:14)
[2017-04-29 06:15] LABS: THYROID STIMULATING HORMONE 0.72 mIU/ML (0.46-4.68)
[2017-04-29] MEDS: Potassium & Sodium Phosphate PO SCH ×3 (08:21→16:29)
--- NOTE | 2017-04-29 11:23 | CON ---
ENDOCRINOLOGY CONSULT ROOM #: [id number] ICU. HISTORY OF PRESENT ILLNESS: This is a 26-year-old female with known history of type 1 insulin dependent diabetes presenting here once again with diabetic ketoacidosis and marked hyperglycemic exacerbations and dehydration and is now being admitted to ICU and referred for further diabetic evaluation and management. The patient alleges that she is compliant with her insulin dose administration, but there is a very high possibility of drug omission as she is in the hospital every other week for recurrent diabetic ketoacidosis as noted. 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 She was actually scheduled to start an insulin pump with [facility], but again, has not been able to do so because of the frequent hospital readmissions as noted. History of bronchial asthma. FAMILY HISTORY: Positive for hypertension and heart disease. SOCIAL HISTORY: The patient has two young children and lives with her mother and family. No known substance use. REVIEW OF SYSTEMS: As mentioned above, admits to progressive bouts of dizziness and lightheadedness, worse on the day of admission with easy fatigability and tiredness and generalized body weakness. Also admits to precordial chest pain with progressive shortness of breath especially on exertion. Her oral intake is variable with nausea and dyspepsia, but denies any recent vomiting episodes nor any alterations of bowel pattern. However, admits to marked polyuria, nocturia and polydipsia, especially on the day of admission. PHYSICAL EXAMINATION: GENERAL: This is an asthenic female in no apparent distress. VITAL SIGNS: Blood pressure of 130/80, pulse of 100 beats per minute, regular, temperature 98, respirations 20, height is 5' 3", weight is 117 pounds. HEENT: Head normocephalic. Eyes anicteric with pink conjunctivae. Funduscopy not possible at this time. Ears, nose, and throat otherwise normal. NECK: Supple. Thyroid gland is normal in size. No carotid bruits or any cervical adenopathy. CARDIOPULMONARY: Adynamic precordium. S1 and S2 is rapid and regular. LUNGS: Clear to auscultation. ABDOMEN: Flat, soft with positive bowel sounds. EXTREMITIES: No peripheral edema. Pulses are +2 bilaterally. LABORATORY: Her chemistries showed a BUN of 13, sodium 139, potassium 5.4, chloride 101, CO2 is less than 5, creatinine is 0.8, glucose is 795. ASSESSMENT: This is a 26-year-old female with uncontrolled and decompensated type 1 insulin-dependent diabetes presenting here with marked diabetic ketoacidosis and dehydration, and is now referred for diabetic evaluation and management. We will strongly doubt the patient's adherence to her insulin regimen on a day-to-day basis in terms of actual compliance thereof. PLAN: Plan of management was discussed with the patient and staff. We will initiate vigorous IV hydration with normal saline running at 200 mL/hour and serial chemistries will be obtained and supplement accordingly as needed. Moreover, we will also start her with intensive insulin therapies and insulin drip infusion and detailed orders have been given otherwise. We will obtain serial chemistries and if the CO2 is at least above 16 to 18, may safely discontinue the drip and switch over to a more physiologic basal and bolus insulin drug combination as ordered. We will obtain serial chemistry and supplement accordingly as needed. We will follow. Monet Gallego MD
--- NOTE | 2017-04-29 12:02 | CARD ---
APPROVED REPORT EKG Measurement Heart [id number] <Conclusion> Sinus tachycardia Possible Left atrial enlargement Nonspecific ST and T wave abnormality Abnormal ECG
--- NOTE | 2017-04-29 12:07 | CP.CCUPN ---
CCU Subjective - Physician Review Subjective (Free Text): In better mood this AM, was sleeping and easily arousable. Denies any new discomfort. Insulin drip resumed and increased to as high as 4 units per hour for BS level near 298. Acidosis is slowly improving, bicarb up to 13+ from initial level of 5. Other vitals and I/O's reviewed. ROS: No other pertinent negs or positives on 10+ system review. [facility] Nursing and physician documentation reviewed to date; no new pertinent info noted relevant to current medical problems. MAJOR PROBLEMS: 1. Recurrent DKA 2. Mild Hyperkalemia PLAN: 1. IV hydration and insulin drip until metab acidosis and anion gap normalizes. K levels should decrease as acidosis improves with insulin and IVF therapy. 2. Follow repeat K, check serum Mag / Phos levels. 3. Neurochecks and seizure precautions in ICU. 4. Endocrine eval. Last HGBA1c was 10.5% and usually in 9.5 - 9.8% range since December 2106. Would consider other etiologies for DKA recurrences: family, psychosocial issues. CCU Objective - Vital Signs / Intake & Output Vital Signs (Last 4 hours): Vital Signs Temp Pulse Resp BP Pulse Ox 04/29/17 10:00 92 H 18 117/78 100 04/29/17 08:00 98.4 F 104 H 21 100/58 L 98 Intake and Output (Last 8hrs): Intake & Output 04/28/17 04/29/17 04/29/17 22:59 06:59 14:59 Intake Total 1000 0 65 Balance 1000 0 65 Weight 117 lb Intake: IV 1000 0 65 - Physical Exam Head: Positive for: Normocephalic Pupils: Positive for: PERRL Extroacular Muscles: Positive for: EOMI Conjunctiva: Negative for: Icteric Mouth: Positive for: Dry Neck: Negative for: Meningeal Signs, JVD Respiratory/Chest: Positive for: Clear to Auscultation. Negative for: Accessory Muscle Use, Wheezes Cardiovascular: Positive for: Regular Rate and Rhythm, Tachycardic. Negative for: Murmurs, Rub Abdomen: Positive for: Normal Bowel Sounds. Negative for: Tenderness, Distention Lower Extremity: Positive for: Normal Inspection, NORMAL PULSES, Capillary Refill < 2 s. Negative for: Edema, CALF TENDERNESS, Cyanosis Neurological: Positive for: GCS=15, Motor Func Grossly Intact, Normal Sensory Function Skin: Positive for: Warm. Negative for: Rashes Psychiatric: Positive for: Alert, Oriented x 3, Normal Concentration, Normal Affect - Medications Active Medications: Active Medications Generic Name Dose Route Start Last Admin Trade Name Freq PRN Reason Stop Dose Admin Dextrose 0 ml 04/28/17 18:21 Dextrose 50% Inj IV STAT PRN Hyglycemia Protocol Protocol Dextrose 0 gm 04/28/17 18:21 Glutose 15 PO ONCE PRN Hypoglycemia Protocol Protocol Glucagon 0 mg 04/28/17 18:21 Glucagen Diagnostic Kit IM STAT PRN Hypoglycemia Protocol Protocol Insulin Human Regular 100 101 mls @ 5.36 mls/hr 04/28/17 18:45 04/29/17 11:20 units/ Sodium Chloride IV 0 units/kg/hr .[id number] LANETTE 0 mls/hr Protocol Titration 0.1 UNITS/KG/HR Dextrose/Sodium Chloride 1,000 mls @ 250 mls/hr 04/29/17 00:15 04/29/17 08:23 Dextrose 5%/0.9% Ns 1000 Ml IV 04/30/17 00:12 250 mls/hr .Q4H LANETTE Administration Ibuprofen 400 mg 04/28/17 20:35 Motrin Tab PO Q6H PRN Pain, moderate (4-7) Metoclopramide HCl 10 mg 04/28/17 20:35 Reglan IVP Q6H PRN Nausea/Vomiting Potassium Phos/Sodium Phos 1 pkt 04/29/17 09:00 04/29/17 08:21 Neutra-Phos PO 1 pkt TID LANETTE Administration - Patient Studies Lab Studies: Lab Studies 04/29/17 04/29/17 04/29/17 Range/Units : 10:29 09:02 WBC (4.8-10.8) K/uL RBC (3.80-5.20) Mil/uL Hgb (12.0-16.0) g/dL Hct (34.0-47.0) % MCV (81.0-99.0) fl MCH (27.0-31.0) pg MCHC (33.0-37.0) g/dL RDW (11.5-14.5) % Plt Count (130-400) K/uL MPV (7.2-11.7) fl Neut % (Auto) (50.0-75.0) % Lymph % (Auto) (20.0-40.0) % Dixon % (Auto) (0.0-10.0) % Eos % (Auto) (0.0-4.0) % Baso % (Auto) (0.0-2.0) % Neut # (1.8-7.0) K/uL Lymph # (1.0-4.3) K/uL Dixon # (0.0-0.8) K/uL Eos # (0.0-0.7) K/uL Baso # (0.0-0.2) K/uL pO2 (30-55) mm/Hg VBG pH (7.32-7.43) VBG pCO2 (40-60) mmHg VBG HCO3 mmol/L VBG Total CO2 (22-28) mmol/L VBG O2 Sat (Calc) (40-65) % VBG Base Excess (0.0-2.0) mmol/L VBG Potassium (3.6-5.2) mmol/L Sodium (132-148) mmol/L Chloride (98-107) mmol/L Glucose (65-105) mg/dL Lactate (0.7-2.1) mmol/L FiO2 % Blood Gas Comments Crit Value Called To Crit Value Called By Crit Value Read Back Blood Gas Notified Time Potassium (3.6-5.0) MMOL/L Carbon Dioxide (22-30) mmol/L Anion Gap (10-20) BUN (7-17) mg/dl Creatinine (0.7-1.2) mg/dL Est GFR ( Amer) Est GFR (Non-Af Amer) POC Glucose (mg/dL) 126 H 156 H 298 H (65-110) mg/dL Random Glucose (65-105) mg/dL Lactic Acid (0.7-2.1) MMOL/L Calcium (8.4-10.2) mg/dL Phosphorus (2.5-4.5) mg/dl Magnesium (1.6-2.3) MG/DL Total Bilirubin (0.2-1.3) mg/dl AST (14-36) U/L ALT (9-52) U/L Alkaline Phosphatase (38-126) U/L Total Protein (6.3-8.2) G/DL Albumin (3.5-5.0) g/dL Globulin (2.2-3.9) gm/dL Albumin/Globulin Ratio (1.0-2.1) Triglycerides (0-149) mg/DL Cholesterol (0-199) mg/dL LDL Cholesterol Direct (0-129) mg/dL HDL Cholesterol (30-70) MG/DL Thyroxine (T4) (5.5-11.0) ug/dl TSH 3rd Generation (0.46-4.68) mIU/ML Venous Blood Potassium (3.6-5.2) mmol/L Urine Color (YELLOW) Urine Clarity (Clear) Urine pH (5.0-8.0) Ur Specific [place]llo (1.003-1.030) Urine Protein (NEGATIVE) mg/dL Urine Glucose (UA) (Normal) mg/dL Urine Ketones (NEGATIVE) mg/dL Urine Blood (NEGATIVE) Urine Nitrate (NEGATIVE) Urine Bilirubin (NEGATIVE) Urine Urobilinogen (0.2-1.0) mg/dL Ur Leukocyte Esterase (Negative) Dian/uL Urine RBC (Auto) (0-3) /hpf Urine Microscopic WBC (0-5) /hpf Ur Squamous Epith Cells (0-5) /hpf 04/29/17 04/29/17 04/29/17 Range/Units 08:05 07:03 06:13 WBC (4.8-10.8) K/uL RBC (3.80-5.20) Mil/uL Hgb (12.0-16.0) g/dL Hct (34.0-47.0) % MCV (81.0-99.0) fl MCH (27.0-31.0) pg MCHC (33.0-37.0) g/dL RDW (11.5-14.5) % Plt Count (130-400) K/uL MPV (7.2-11.7) fl Neut % (Auto) (50.0-75.0) % Lymph % (Auto) (20.0-40.0) % Dixon % (Auto) (0.0-10.0) % Eos % (Auto) (0.0-4.0) % Baso % (Auto) (0.0-2.0) % Neut # (1.8-7.0) K/uL Lymph # (1.0-4.3) K/uL Dixon # (0.0-0.8) K/uL Eos # (0.0-0.7) K/uL Baso # (0.0-0.2) K/uL pO2 (30-55) mm/Hg VBG pH (7.32-7.43) VBG pCO2 (40-60) mmHg VBG HCO3 mmol/L VBG Total CO2 (22-28) mmol/L VBG O2 Sat (Calc) (40-65) % VBG Base Excess (0.0-2.0) mmol/L VBG Potassium (3.6-5.2) mmol/L Sodium (132-148) mmol/L Chloride (98-107) mmol/L Glucose (65-105) mg/dL Lactate (0.7-2.1) mmol/L FiO2 % Blood Gas Comments Crit Value Called To Crit Value Called By Crit Value Read Back Blood Gas Notified Time Potassium (3.6-5.0) MMOL/L Carbon Dioxide (22-30) mmol/L Anion Gap (10-20) BUN (7-17) mg/dl Creatinine (0.7-1.2) mg/dL Est GFR ( Amer) Est GFR (Non-Af Amer) POC Glucose (mg/dL) 236 H 120 H 152 H (65-110) mg/dL Random Glucose (65-105) mg/dL Lactic Acid (0.7-2.1) MMOL/L Calcium (8.4-10.2) mg/dL Phosphorus (2.5-4.5) mg/dl Magnesium (1.6-2.3) MG/DL Total Bilirubin (0.2-1.3) mg/dl AST (14-36) U/L ALT (9-52) U/L Alkaline Phosphatase (38-126) U/L Total Protein (6.3-8.2) G/DL Albumin (3.5-5.0) g/dL Globulin (2.2-3.9) gm/dL Albumin/Globulin Ratio (1.0-2.1) Triglycerides (0-149) mg/DL Cholesterol (0-199) mg/dL LDL Cholesterol Direct (0-129) mg/dL HDL Cholesterol (30-70) MG/DL Thyroxine (T4) (5.5-11.0) ug/dl TSH 3rd Generation (0.46-4.68) mIU/ML Venous Blood Potassium (3.6-5.2) mmol/L Urine Color (YELLOW) Urine Clarity (Clear) Urine pH (5.0-8.0) Ur Specific [place] (1.003-1.030) Urine Protein (NEGATIVE) mg/dL Urine Glucose (UA) (Normal) mg/dL Urine Ketones (NEGATIVE) mg/dL Urine Blood (NEGATIVE) Urine Nitrate (NEGATIVE) Urine Bilirubin (NEGATIVE) Urine Urobilinogen (0.2-1.0) mg/dL Ur Leukocyte Esterase (Negative) Dian/uL Urine RBC (Auto) (0-3) /hpf Urine Microscopic WBC (0-5) /hpf Ur Squamous Epith Cells (0-5) /hpf 04/29/17 04/29/17 04/29/17 Range/Units 05:02 05:00 05:00 WBC 8.8 (4.8-10.8) K/uL RBC 3.34 L (3.80-5.20) Mil/uL Hgb 10.2 L D (12.0-16.0) g/dL Hct 31.1 L (34.0-47.0) % MCV 93.3 D (81.0-99.0) fl MCH 30.6 (27.0-31.0) pg MCHC 32.8 L (33.0-37.0) g/dL RDW 13.9 (11.5-14.5) % Plt Count 282 D (130-400) K/uL MPV (7.2-11.7) fl Neut % (Auto) (50.0-75.0) % Lymph % (Auto) (20.0-40.0) % Dixon % (Auto) (0.0-10.0) % Eos % (Auto) (0.0-4.0) % Baso % (Auto) (0.0-2.0) % Neut # (1.8-7.0) K/uL Lymph # (1.0-4.3) K/uL Dixon # (0.0-0.8) K/uL Eos # (0.0-0.7) K/uL Baso # (0.0-0.2) K/uL pO2 (30-55) mm/Hg VBG pH (7.32-7.43) VBG pCO2 (40-60) mmHg VBG HCO3 mmol/L VBG Total CO2 (22-28) mmol/L VBG O2 Sat (Calc) (40-65) % VBG Base Excess (0.0-2.0) mmol/L VBG Potassium (3.6-5.2) mmol/L Sodium (132-148) mmol/L Chloride (98-107) mmol/L Glucose (65-105) mg/dL Lactate (0.7-2.1) mmol/L FiO2 % Blood Gas Comments Crit Value Called To Crit Value Called By Crit Value Read Back Blood Gas Notified Time Potassium (3.6-5.0) MMOL/L Carbon Dioxide (22-30) mmol/L Anion Gap (10-20) BUN (7-17) mg/dl Creatinine (0.7-1.2) mg/dL Est GFR ( Amer) Est GFR (Non-Af Amer) POC Glucose (mg/dL) 276 H (65-110) mg/dL Random Glucose (65-105) mg/dL Lactic Acid 3.8 H (0.7-2.1) MMOL/L Calcium (8.4-10.2) mg/dL Phosphorus (2.5-4.5) mg/dl Magnesium (1.6-2.3) MG/DL Total Bilirubin (0.2-1.3) mg/dl AST (14-36) U/L ALT (9-52) U/L Alkaline Phosphatase (38-126) U/L Total Protein (6.3-8.2) G/DL Albumin (3.5-5.0) g/dL Globulin (2.2-3.9) gm/dL Albumin/Globulin Ratio (1.0-2.1) Triglycerides (0-149) mg/DL Cholesterol (0-199) mg/dL LDL Cholesterol Direct (0-129) mg/dL HDL Cholesterol (30-70) MG/DL Thyroxine (T4) (5.5-11.0) ug/dl TSH 3rd Generation (0.46-4.68) mIU/ML Venous Blood Potassium (3.6-5.2) mmol/L Urine Color (YELLOW) Urine Clarity (Clear) Urine pH (5.0-8.0) Ur Specific [place]llo (1.003-1.030) Urine Protein (NEGATIVE) mg/dL Urine Glucose (UA) (Normal) mg/dL Urine Ketones (NEGATIVE) mg/dL Urine Blood (NEGATIVE) Urine Nitrate (NEGATIVE) Urine Bilirubin (NEGATIVE) Urine Urobilinogen (0.2-1.0) mg/dL Ur Leukocyte Esterase (Negative) Dian/uL Urine RBC (Auto) (0-3) /hpf Urine Microscopic WBC (0-5) /hpf Ur Squamous Epith Cells (0-5) /hpf 04/29/17 04/29/17 04/29/17 Range/Units 05:00 04:05 03:03 WBC (4.8-10.8) K/uL RBC (3.80-5.20) Mil/uL Hgb (12.0-16.0) g/dL Hct (34.0-47.0) % MCV (81.0-99.0) fl MCH (27.0-31.0) pg MCHC (33.0-37.0) g/dL RDW (11.5-14.5) % Plt Count (130-400) K/uL MPV (7.2-11.7) fl Neut % (Auto) (50.0-75.0) % Lymph % (Auto) (20.0-40.0) % Dixon % (Auto) (0.0-10.0) % Eos % (Auto) (0.0-4.0) % Baso % (Auto) (0.0-2.0) % Neut # (1.8-7.0) K/uL Lymph # (1.0-4.3) K/uL Dixon # (0.0-0.8) K/uL Eos # (0.0-0.7) K/uL Baso # (0.0-0.2) K/uL pO2 (30-55) mm/Hg VBG pH (7.32-7.43) VBG pCO2 (40-60) mmHg VBG HCO3 mmol/L VBG Total CO2 (22-28) mmol/L VBG O2 Sat (Calc) (40-65) % VBG Base Excess (0.0-2.0) mmol/L VBG Potassium (3.6-5.2) mmol/L Sodium 141 (132-148) mmol/L Chloride 111 H (98-107) mmol/L Glucose (65-105) mg/dL Lactate (0.7-2.1) mmol/L FiO2 % Blood Gas Comments Crit Value Called To Crit Value Called By Crit Value Read Back Blood Gas Notified Time Potassium 3.2 L (3.6-5.0) MMOL/L Carbon Dioxide 13 L (22-30) mmol/L Anion Gap 20 (10-20) BUN 7 (7-17) mg/dl Creatinine 0.5 L (0.7-1.2) mg/dL Est GFR ( Amer) > 60 Est GFR (Non-Af Amer) > 60 POC Glucose (mg/dL) 210 H 111 H (65-110) mg/dL Random Glucose 234 H (65-105) mg/dL Lactic Acid (0.7-2.1) MMOL/L Calcium 7.2 L (8.4-10.2) mg/dL Phosphorus 1.7 L (2.5-4.5) mg/dl Magnesium 1.7 (1.6-2.3) MG/DL Total Bilirubin 0.3 (0.2-1.3) mg/dl AST 78 H (14-36) U/L ALT 79 H (9-52) U/L Alkaline Phosphatase 97 (38-126) U/L Total Protein 5.6 L (6.3-8.2) G/DL Albumin 2.9 L D (3.5-5.0) g/dL Globulin 2.7 (2.2-3.9) gm/dL Albumin/Globulin Ratio 1.1 (1.0-2.1) Triglycerides 165 H D (0-149) mg/DL Cholesterol 131 (0-199) mg/dL LDL Cholesterol Direct 66 (0-129) mg/dL HDL Cholesterol 44 (30-70) MG/DL Thyroxine (T4) 5.03 L (5.5-11.0) ug/dl TSH 3rd Generation 0.72 (0.46-4.68) mIU/ML Venous Blood Potassium (3.6-5.2) mmol/L Urine Color (YELLOW) Urine Clarity (Clear) Urine pH (5.0-8.0) Ur Specific [place]llo (1.003-1.030) Urine Protein (NEGATIVE) mg/dL Urine Glucose (UA) (Normal) mg/dL Urine Ketones (NEGATIVE) mg/dL Urine Blood (NEGATIVE) Urine Nitrate (NEGATIVE) Urine Bilirubin (NEGATIVE) Urine Urobilinogen (0.2-1.0) mg/dL Ur Leukocyte Esterase (Negative) Dian/uL Urine RBC (Auto) (0-3) /hpf Urine Microscopic WBC (0-5) /hpf Ur Squamous Epith Cells (0-5) /hpf 04/29/17 04/29/17 04/29/17 Range/Units 02:17 02:05 02:00 WBC (4.8-10.8) K/uL RBC (3.80-5.20) Mil/uL Hgb (12.0-16.0) g/dL Hct (34.0-47.0) % MCV (81.0-99.0) fl MCH (27.0-31.0) pg MCHC (33.0-37.0) g/dL RDW (11.5-14.5) % Plt Count (130-400) K/uL MPV (7.2-11.7) fl Neut % (Auto) (50.0-75.0) % Lymph % (Auto) (20.0-40.0) % Dixon % (Auto) (0.0-10.0) % Eos % (Auto) (0.0-4.0) % Baso % (Auto) (0.0-2.0) % Neut # (1.8-7.0) K/uL Lymph # (1.0-4.3) K/uL Dixon # (0.0-0.8) K/uL Eos # (0.0-0.7) K/uL Baso # (0.0-0.2) K/uL pO2 60 H (30-55) mm/Hg VBG pH 7.30 L (7.32-7.43) VBG pCO2 25 L (40-60) mmHg VBG HCO3 15.1 mmol/L VBG Total CO2 (22-28) mmol/L VBG O2 Sat (Calc) 94.7 H (40-65) % VBG Base Excess -12.3 L (0.0-2.0) mmol/L VBG Potassium (3.6-5.2) mmol/L Sodium 142 (132-148) mmol/L Chloride 112 H (98-107) mmol/L Glucose (65-105) mg/dL Lactate (0.7-2.1) mmol/L FiO2 % Blood Gas Comments Crit Value Called To Crit Value Called By Crit Value Read Back Blood Gas Notified Time Potassium 3.9 (3.6-5.0) MMOL/L Carbon Dioxide 12 L (22-30) mmol/L Anion Gap 22 H (10-20) BUN 8 (7-17) mg/dl Creatinine 0.6 L (0.7-1.2) mg/dL Est GFR ( Amer) > 60 Est GFR (Non-Af Amer) > 60 POC Glucose (mg/dL) 221 H (65-110) mg/dL Random Glucose 195 H (65-105) mg/dL Lactic Acid (0.7-2.1) MMOL/L Calcium 7.6 L (8.4-10.2) mg/dL Phosphorus (2.5-4.5) mg/dl Magnesium (1.6-2.3) MG/DL Total Bilirubin (0.2-1.3) mg/dl AST (14-36) U/L ALT (9-52) U/L Alkaline Phosphatase (38-126) U/L Total Protein (6.3-8.2) G/DL Albumin (3.5-5.0) g/dL Globulin (2.2-3.9) gm/dL Albumin/Globulin Ratio (1.0-2.1) Triglycerides (0-149) mg/DL Cholesterol (0-199) mg/dL LDL Cholesterol Direct (0-129) mg/dL HDL Cholesterol (30-70) MG/DL Thyroxine (T4) (5.5-11.0) ug/dl TSH 3rd Generation (0.46-4.68) mIU/ML Venous Blood Potassium (3.6-5.2) mmol/L Urine Color (YELLOW) Urine Clarity (Clear) Urine pH (5.0-8.0) Ur Specific [place] (1.003-1.030) Urine Protein (NEGATIVE) mg/dL Urine Glucose (UA) (Normal) mg/dL Urine Ketones (NEGATIVE) mg/dL Urine Blood (NEGATIVE) Urine Nitrate (NEGATIVE) Urine Bilirubin (NEGATIVE) Urine Urobilinogen (0.2-1.0) mg/dL Ur Leukocyte Esterase (Negative) Dian/uL Urine RBC (Auto) (0-3) /hpf Urine Microscopic WBC (0-5) /hpf Ur Squamous Epith Cells (0-5) /hpf 04/29/17 04/29/17 04/28/17 Range/Units 01:04 00:07 23:41 WBC (4.8-10.8) K/uL RBC (3.80-5.20) Mil/uL Hgb (12.0-16.0) g/dL Hct (34.0-47.0) % MCV (81.0-99.0) fl MCH (27.0-31.0) pg MCHC (33.0-37.0) g/dL RDW (11.5-14.5) % Plt Count (130-400) K/uL MPV (7.2-11.7) fl Neut % (Auto) (50.0-75.0) % Lymph % (Auto) (20.0-40.0) % Dixon % (Auto) (0.0-10.0) % Eos % (Auto) (0.0-4.0) % Baso % (Auto) (0.0-2.0) % Neut # (1.8-7.0) K/uL Lymph # (1.0-4.3) K/uL Dixon # (0.0-0.8) K/uL Eos # (0.0-0.7) K/uL Baso # (0.0-0.2) K/uL pO2 (30-55) mm/Hg VBG pH (7.32-7.43) VBG pCO2 (40-60) mmHg VBG HCO3 mmol/L VBG Total CO2 (22-28) mmol/L VBG O2 Sat (Calc) (40-65) % VBG Base Excess (0.0-2.0) mmol/L VBG Potassium (3.6-5.2) mmol/L Sodium 144 (132-148) mmol/L Chloride 111 H (98-107) mmol/L Glucose (65-105) mg/dL Lactate (0.7-2.1) mmol/L FiO2 % Blood Gas Comments Crit Value Called To Crit Value Called By Crit Value Read Back Blood Gas Notified Time Potassium 4.1 (3.6-5.0) MMOL/L Carbon Dioxide 7 L* D (22-30) mmol/L Anion Gap 30 H (10-20) BUN 10 (7-17) mg/dl Creatinine 0.6 L (0.7-1.2) mg/dL Est GFR ( Amer) > 60 Est GFR (Non-Af Amer) > 60 POC Glucose (mg/dL) 176 H 96 (65-110) mg/dL Random Glucose 148 H (65-105) mg/dL Lactic Acid (0.7-2.1) MMOL/L Calcium 7.7 L (8.4-10.2) mg/dL Phosphorus (2.5-4.5) mg/dl Magnesium (1.6-2.3) MG/DL Total Bilirubin (0.2-1.3) mg/dl AST (14-36) U/L ALT (9-52) U/L Alkaline Phosphatase (38-126) U/L Total Protein (6.3-8.2) G/DL Albumin (3.5-5.0) g/dL Globulin (2.2-3.9) gm/dL Albumin/Globulin Ratio (1.0-2.1) Triglycerides (0-149) mg/DL Cholesterol (0-199) mg/dL LDL Cholesterol Direct (0-129) mg/dL HDL Cholesterol (30-70) MG/DL Thyroxine (T4) (5.5-11.0) ug/dl TSH 3rd Generation (0.46-4.68) mIU/ML Venous Blood Potassium (3.6-5.2) mmol/L Urine Color (YELLOW) Urine Clarity (Clear) Urine pH (5.0-8.0) Ur Specific [place] (1.003-1.030) Urine Protein (NEGATIVE) mg/dL Urine Glucose (UA) (Normal) mg/dL Urine Ketones (NEGATIVE) mg/dL Urine Blood (NEGATIVE) Urine Nitrate (NEGATIVE) Urine Bilirubin (NEGATIVE) Urine Urobilinogen (0.2-1.0) mg/dL Ur Leukocyte Esterase (Negative) Dian/uL Urine RBC (Auto) (0-3) /hpf Urine Microscopic WBC (0-5) /hpf Ur Squamous Epith Cells (0-5) /hpf 04/28/17 04/28/17 04/28/17 Range/Units 23:06 18:46 18:08 WBC (4.8-10.8) K/uL RBC (3.80-5.20) Mil/uL Hgb (12.0-16.0) g/dL Hct (34.0-47.0) % MCV (81.0-99.0) fl MCH (27.0-31.0) pg MCHC (33.0-37.0) g/dL RDW (11.5-14.5) % Plt Count (130-400) K/uL MPV (7.2-11.7) fl Neut % (Auto) (50.0-75.0) % Lymph % (Auto) (20.0-40.0) % Dixon % (Auto) (0.0-10.0) % Eos % (Auto) (0.0-4.0) % Baso % (Auto) (0.0-2.0) % Neut # (1.8-7.0) K/uL Lymph # (1.0-4.3) K/uL Dixon # (0.0-0.8) K/uL Eos # (0.0-0.7) K/uL Baso # (0.0-0.2) K/uL pO2 49 (30-55) mm/Hg VBG pH 7.03 L* (7.32-7.43) VBG pCO2 18 L* (40-60) mmHg VBG HCO3 5.0 mmol/L VBG Total CO2 5.4 L (22-28) mmol/L VBG O2 Sat (Calc) 78.8 H (40-65) % VBG Base Excess -24.3 L (0.0-2.0) mmol/L VBG Potassium 5.4 H (3.6-5.2) mmol/L Sodium 139 132.0 (132-148) mmol/L Chloride 101 90.0 L (98-107) mmol/L Glucose > 750 H* (65-105) mg/dL Lactate 2.9 H (0.7-2.1) mmol/L FiO2 21.0 % Blood Gas Comments Lactate 2.9 Crit Value Called To marco antonio Severino Crit Value Called By 203 Crit Value Read Back Y Blood Gas Notified Time 1813 Potassium 5.4 H (3.6-5.0) MMOL/L Carbon Dioxide < 5 L* D (22-30) mmol/L Anion Gap 38 H (10-20) BUN 13 (7-17) mg/dl Creatinine 0.8 (0.7-1.2) mg/dL Est GFR ( Amer) > 60 Est GFR (Non-Af Amer) > 60 POC Glucose (mg/dL) 159 H (65-110) mg/dL Random Glucose 795 H* D (65-105) mg/dL Lactic Acid (0.7-2.1) MMOL/L Calcium 8.3 L (8.4-10.2) mg/dL Phosphorus (2.5-4.5) mg/dl Magnesium (1.6-2.3) MG/DL Total Bilirubin 0.4 (0.2-1.3) mg/dl AST 91 H D (14-36) U/L ALT 98 H (9-52) U/L Alkaline Phosphatase 158 H D (38-126) U/L Total Protein 7.0 (6.3-8.2) G/DL Albumin 4.2 (3.5-5.0) g/dL Globulin 2.7 (2.2-3.9) gm/dL Albumin/Globulin Ratio 1.5 (1.0-2.1) Triglycerides (0-149) mg/DL Cholesterol (0-199) mg/dL LDL Cholesterol Direct (0-129) mg/dL HDL Cholesterol (30-70) MG/DL Thyroxine (T4) (5.5-11.0) ug/dl TSH 3rd Generation (0.46-4.68) mIU/ML Venous Blood Potassium 5.4 H (3.6-5.2) mmol/L Urine Color (YELLOW) Urine Clarity (Clear) Urine pH (5.0-8.0) Ur Specific O[place]llo (1.003-1.030) Urine Protein (NEGATIVE) mg/dL Urine Glucose (UA) (Normal) mg/dL Urine Ketones (NEGATIVE) mg/dL Urine Blood (NEGATIVE) Urine Nitrate (NEGATIVE) Urine Bilirubin (NEGATIVE) Urine Urobilinogen (0.2-1.0) mg/dL Ur Leukocyte Esterase (Negative) Dian/uL Urine RBC (Auto) (0-3) /hpf Urine Microscopic WBC (0-5) /hpf Ur Squamous Epith Cells (0-5) /hpf 04/28/17 04/28/17 04/28/17 Range/Units 18:00 18:00 17:34 WBC 10.3 D (4.8-10.8) K/uL RBC 4.31 (3.80-5.20) Mil/uL Hgb 12.9 (12.0-16.0) g/dL Hct 44.7 (34.0-47.0) % MCV 103.5 H D (81.0-99.0) fl MCH 29.9 (27.0-31.0) pg MCHC 28.9 L (33.0-37.0) g/dL RDW 16.1 H (11.5-14.5) % Plt Count 432 H D (130-400) K/uL MPV 7.8 (7.2-11.7) fl Neut % (Auto) 83.0 H (50.0-75.0) % Lymph % (Auto) 12.5 L (20.0-40.0) % Dixon % (Auto) 3.6 (0.0-10.0) % Eos % (Auto) 0.2 (0.0-4.0) % Baso % (Auto) 0.7 (0.0-2.0) % Neut # 8.5 H (1.8-7.0) K/uL Lymph # 1.3 (1.0-4.3) K/uL Dixon # 0.4 (0.0-0.8) K/uL Eos # 0.0 (0.0-0.7) K/uL Baso # 0.1 (0.0-0.2) K/uL pO2 (30-55) mm/Hg VBG pH (7.32-7.43) VBG pCO2 (40-60) mmHg VBG HCO3 mmol/L VBG Total CO2 (22-28) mmol/L VBG O2 Sat (Calc) (40-65) % VBG Base Excess (0.0-2.0) mmol/L VBG Potassium (3.6-5.2) mmol/L Sodium (132-148) mmol/L Chloride (98-107) mmol/L Glucose (65-105) mg/dL Lactate (0.7-2.1) mmol/L FiO2 % Blood Gas Comments Crit Value Called To Crit Value Called By Crit Value Read Back Blood Gas Notified Time Potassium (3.6-5.0) MMOL/L Carbon Dioxide (22-30) mmol/L Anion Gap (10-20) BUN (7-17) mg/dl Creatinine (0.7-1.2) mg/dL Est GFR ( Amer) Est GFR (Non-Af Amer) POC Glucose (mg/dL) > 500 H* (65-110) mg/dL Random Glucose (65-105) mg/dL Lactic Acid (0.7-2.1) MMOL/L Calcium (8.4-10.2) mg/dL Phosphorus (2.5-4.5) mg/dl Magnesium (1.6-2.3) MG/DL Total Bilirubin (0.2-1.3) mg/dl AST (14-36) U/L ALT (9-52) U/L Alkaline Phosphatase (38-126) U/L Total Protein (6.3-8.2) G/DL Albumin (3.5-5.0) g/dL Globulin (2.2-3.9) gm/dL Albumin/Globulin Ratio (1.0-2.1) Triglycerides (0-149) mg/DL Cholesterol (0-199) mg/dL LDL Cholesterol Direct (0-129) mg/dL HDL Cholesterol (30-70) MG/DL Thyroxine (T4) (5.5-11.0) ug/dl TSH 3rd Generation (0.46-4.68) mIU/ML Venous Blood Potassium (3.6-5.2) mmol/L Urine Color Colorless (YELLOW) Urine Clarity Clear (Clear) Urine pH 6.0 (5.0-8.0) Ur Specific [place] 1.023 (1.003-1.030) Urine Protein Negative (NEGATIVE) mg/dL Urine Glucose (UA) >=500 (Normal) mg/dL Urine Ketones 80 (NEGATIVE) mg/dL Urine Blood Small (NEGATIVE) Urine Nitrate Negative (NEGATIVE) Urine Bilirubin Negative (NEGATIVE) Urine Urobilinogen 0.2-1.0 (0.2-1.0) mg/dL Ur Leukocyte Esterase Neg (Negative) Dian/uL Urine RBC (Auto) 3 (0-3) /hpf Urine Microscopic WBC 1 (0-5) /hpf Ur Squamous Epith Cells 1 (0-5) /hpf Laboratory Results - last 24 hr 04/28/17 04/28/17 04/28/17 17:34 18:00 18:00 WBC 10.3 D RBC 4.31 Hgb 12.9 Hct 44.7 MCV 103.5 H D MCH 29.9 MCHC 28.9 L RDW 16.1 H Plt Count 432 H D MPV 7.8 Neut % (Auto) 83.0 H Lymph % (Auto) 12.5 L Dixon % (Auto) 3.6 Eos % (Auto) 0.2 Baso % (Auto) 0.7 Neut # 8.5 H Lymph # 1.3 Dixon # 0.4 Eos # 0.0 Baso # 0.1 pO2 VBG pH VBG pCO2 VBG HCO3 VBG Total CO2 VBG O2 Sat (Calc) VBG Base Excess VBG Potassium Sodium Chloride Glucose Lactate FiO2 Blood Gas Comments Crit Value Called To Crit Value Called By Crit Value Read Back Blood Gas Notified Time Potassium Carbon Dioxide Anion Gap BUN Creatinine Est GFR ( Amer) Est GFR (Non-Af Amer) POC Glucose (mg/dL) > 500 H* Random Glucose Lactic Acid Calcium Phosphorus Magnesium Total Bilirubin AST ALT Alkaline Phosphatase Total Protein Albumin Globulin Albumin/Globulin Ratio Triglycerides Cholesterol LDL Cholesterol Direct HDL Cholesterol Thyroxine (T4) TSH 3rd Generation Venous Blood Potassium Urine Color Colorless Urine Clarity Clear Urine pH 6.0 Ur Specific [place] 1.023 Urine Protein Negative Urine Glucose (UA) >=500 Urine Ketones 80 Urine Blood Small Urine Nitrate Negative Urine Bilirubin Negative Urine Urobilinogen 0.2-1.0 Ur Leukocyte Esterase Neg Urine RBC (Auto) 3 Urine Microscopic WBC 1 Ur Squamous Epith Cells 1 04/28/17 04/28/17 04/28/17 18:08 18:46 23:06 WBC RBC Hgb Hct MCV MCH MCHC RDW Plt Count MPV Neut % (Auto) Lymph % (Auto) Dixon % (Auto) Eos % (Auto) Baso % (Auto) Neut # Lymph # Dixon # Eos # Baso # pO2 49 VBG pH 7.03 L* VBG pCO2 18 L* VBG HCO3 5.0 VBG Total CO2 5.4 L VBG O2 Sat (Calc) 78.8 H VBG Base Excess -24.3 L VBG Potassium 5.4 H Sodium 132.0 139 Chloride 90.0 L 101 Glucose > 750 H* Lactate 2.9 H FiO2 21.0 Blood Gas Comments Lactate 2.9 Crit Value Called To marco antonio Severino Crit Value Called By 203 Crit Value Read Back Y Blood Gas Notified Time 1814 Potassium 5.4 H Carbon Dioxide < 5 L* D Anion Gap 38 H BUN 13 Creatinine 0.8 Est GFR ( Amer) > 60 Est GFR (Non-Af Amer) > 60 POC Glucose (mg/dL) 159 H Random Glucose 795 H* D Lactic Acid Calcium 8.3 L Phosphorus Magnesium Total Bilirubin 0.4 AST 91 H D ALT 98 H Alkaline Phosphatase 158 H D Total Protein 7.0 Albumin 4.2 Globulin 2.7 Albumin/Globulin Ratio 1.5 Triglycerides Cholesterol LDL Cholesterol Direct HDL Cholesterol Thyroxine (T4) TSH 3rd Generation Venous Blood Potassium 5.4 H Urine Color Urine Clarity Urine pH Ur Specific [place] Urine Protein Urine Glucose (UA) Urine Ketones Urine Blood Urine Nitrate Urine Bilirubin Urine Urobilinogen Ur Leukocyte Esterase Urine RBC (Auto) Urine Microscopic WBC Ur Squamous Epith Cells 04/28/17 04/29/17 04/29/17 23:41 00:07 01:04 WBC RBC Hgb Hct MCV MCH MCHC RDW Plt Count MPV Neut % (Auto) Lymph % (Auto) Dixon % (Auto) Eos % (Auto) Baso % (Auto) Neut # Lymph # Dixon # Eos # Baso # pO2 VBG pH VBG pCO2 VBG HCO3 VBG Total CO2 VBG O2 Sat (Calc) VBG Base Excess VBG Potassium Sodium 144 Chloride 111 H Glucose Lactate FiO2 Blood Gas Comments Crit Value Called To Crit Value Called By Crit Value Read Back Blood Gas Notified Time Potassium 4.1 Carbon Dioxide 7 L* D Anion Gap 30 H BUN 10 Creatinine 0.6 L Est GFR ( Amer) > 60 Est GFR (Non-Af Amer) > 60 POC Glucose (mg/dL) 96 176 H Random Glucose 148 H Lactic Acid Calcium 7.7 L Phosphorus Magnesium Total Bilirubin AST ALT Alkaline Phosphatase Total Protein Albumin Globulin Albumin/Globulin Ratio Triglycerides Cholesterol LDL Cholesterol Direct HDL Cholesterol Thyroxine (T4) TSH 3rd Generation Venous Blood Potassium Urine Color Urine Clarity Urine pH Ur Specific [place] Urine Protein Urine Glucose (UA) Urine Ketones Urine Blood Urine Nitrate Urine Bilirubin Urine Urobilinogen Ur Leukocyte Esterase Urine RBC (Auto) Urine Microscopic WBC Ur Squamous Epith Cells 04/29/17 04/29/17 04/29/17 02:00 02:05 02:17 WBC RBC Hgb Hct MCV MCH MCHC RDW Plt Count MPV Neut % (Auto) Lymph % (Auto) [place] % (Auto) Eos % (Auto) Baso % (Auto) Neut # Lymph # [place] # Eos # Baso # pO2 60 H VBG pH 7.30 L VBG pCO2 25 L VBG HCO3 15.1 VBG Total CO2 VBG O2 Sat (Calc) 94.7 H VBG Base Excess -12.3 L VBG Potassium Sodium 142 Chloride 112 H Glucose Lactate FiO2 Blood Gas Comments Crit Value Called To Crit Value Called By Crit Value Read Back Blood Gas Notified Time Potassium 3.9 Carbon Dioxide 12 L Anion Gap 22 H BUN 8 Creatinine 0.6 L Est GFR ( Amer) > 60 Est GFR (Non-Af Amer) > 60 POC Glucose (mg/dL) 221 H Random Glucose 195 H Lactic Acid Calcium 7.6 L Phosphorus Magnesium Total Bilirubin AST ALT Alkaline Phosphatase Total Protein Albumin Globulin Albumin/Globulin Ratio Triglycerides Cholesterol LDL Cholesterol Direct HDL Cholesterol Thyroxine (T4) TSH 3rd Generation Venous Blood Potassium Urine Color Urine Clarity Urine pH Ur Specific [place] Urine Protein Urine Glucose (UA) Urine Ketones Urine Blood Urine Nitrate Urine Bilirubin Urine Urobilinogen Ur Leukocyte Esterase Urine RBC (Auto) Urine Microscopic WBC Ur Squamous Epith Cells 04/29/17 04/29/17 04/29/17 03:03 04:05 05:00 WBC RBC Hgb Hct MCV MCH MCHC RDW Plt Count MPV Neut % (Auto) Lymph % (Auto) [place] % (Auto) Eos % (Auto) Baso % (Auto) Neut # Lymph # [place] # Eos # Baso # pO2 VBG pH VBG pCO2 VBG HCO3 VBG Total CO2 VBG O2 Sat (Calc) VBG Base Excess VBG Potassium Sodium 141 Chloride 111 H Glucose Lactate FiO2 Blood Gas Comments Crit Value Called To Crit Value Called By Crit Value Read Back Blood Gas Notified Time Potassium 3.2 L Carbon Dioxide 13 L Anion Gap 20 BUN 7 Creatinine 0.5 L Est GFR ( Amer) > 60 Est GFR (Non-Af Amer) > 60 POC Glucose (mg/dL) 111 H 210 H Random Glucose 234 H Lactic Acid Calcium 7.2 L Phosphorus 1.7 L Magnesium 1.7 Total Bilirubin 0.3 AST 78 H ALT 79 H Alkaline Phosphatase 97 Total Protein 5.6 L Albumin 2.9 L D Globulin 2.7 Albumin/Globulin Ratio 1.1 Triglycerides 165 H D Cholesterol 131 LDL Cholesterol Direct 66 HDL Cholesterol 44 Thyroxine (T4) 5.03 L TSH 3rd Generation 0.72 Venous Blood Potassium Urine Color Urine Clarity Urine pH Ur Specific [place] Urine Protein Urine Glucose (UA) Urine Ketones Urine Blood Urine Nitrate Urine Bilirubin Urine Urobilinogen Ur Leukocyte Esterase Urine RBC (Auto) Urine Microscopic WBC Ur Squamous Epith Cells 04/29/17 04/29/17 04/29/17 05:00 05:00 05:02 WBC 8.8 RBC 3.34 L Hgb 10.2 L D Hct 31.1 L MCV 93.3 D MCH 30.6 MCHC 32.8 L RDW 13.9 Plt Count 282 D MPV Neut % (Auto) Lymph % (Auto) [place] % (Auto) Eos % (Auto) Baso % (Auto) Neut # Lymph # [place] # Eos # Baso # pO2 VBG pH VBG pCO2 VBG HCO3 VBG Total CO2 VBG O2 Sat (Calc) VBG Base Excess VBG Potassium Sodium Chloride Glucose Lactate FiO2 Blood Gas Comments Crit Value Called To Crit Value Called By Crit Value Read Back Blood Gas Notified Time Potassium Carbon Dioxide Anion Gap BUN Creatinine Est GFR ( Amer) Est GFR (Non-Af Amer) POC Glucose (mg/dL) 276 H Random Glucose Lactic Acid 3.8 H Calcium Phosphorus Magnesium Total Bilirubin AST ALT Alkaline Phosphatase Total Protein Albumin Globulin Albumin/Globulin Ratio Triglycerides Cholesterol LDL Cholesterol Direct HDL Cholesterol Thyroxine (T4) TSH 3rd Generation Venous Blood Potassium Urine Color Urine Clarity Urine pH Ur Specific [place] Urine Protein Urine Glucose (UA) Urine Ketones Urine Blood Urine Nitrate Urine Bilirubin Urine Urobilinogen Ur Leukocyte Esterase Urine RBC (Auto) Urine Microscopic WBC Ur Squamous Epith Cells 04/29/17 04/29/17 04/29/17 06:13 07:03 08:05 WBC RBC Hgb Hct MCV MCH MCHC RDW Plt Count MPV Neut % (Auto) Lymph % (Auto) [place] % (Auto) Eos % (Auto) Baso % (Auto) Neut # Lymph # [place] # Eos # Baso # pO2 VBG pH VBG pCO2 VBG HCO3 VBG Total CO2 VBG O2 Sat (Calc) VBG Base Excess VBG Potassium Sodium Chloride Glucose Lactate FiO2 Blood Gas Comments Crit Value Called To Crit Value Called By Crit Value Read Back Blood Gas Notified Time Potassium Carbon Dioxide Anion Gap BUN Creatinine Est GFR ( Amer) Est GFR (Non-Af Amer) POC Glucose (mg/dL) 152 H 120 H 236 H Random Glucose Lactic Acid Calcium Phosphorus Magnesium Total Bilirubin AST ALT Alkaline Phosphatase Total Protein Albumin Globulin Albumin/Globulin Ratio Triglycerides Cholesterol LDL Cholesterol Direct HDL Cholesterol Thyroxine (T4) TSH 3rd Generation Venous Blood Potassium Urine Color Urine Clarity Urine pH Ur Specific [place] Urine Protein Urine Glucose (UA) Urine Ketones Urine Blood Urine Nitrate Urine Bilirubin Urine Urobilinogen Ur Leukocyte Esterase Urine RBC (Auto) Urine Microscopic WBC Ur Squamous Epith Cells 04/29/17 04/29/17 04/29/17 09:02 10:29 11:17 WBC RBC Hgb Hct MCV MCH MCHC RDW Plt Count MPV Neut % (Auto) Lymph % (Auto) [place] % (Auto) Eos % (Auto) Baso % (Auto) Neut # Lymph # [place] # Eos # Baso # pO2 VBG pH VBG pCO2 VBG HCO3 VBG Total CO2 VBG O2 Sat (Calc) VBG Base Excess VBG Potassium Sodium Chloride Glucose Lactate FiO2 Blood Gas Comments Crit Value Called To Crit Value Called By Crit Value Read Back Blood Gas Notified Time Potassium Carbon Dioxide Anion Gap BUN Creatinine Est GFR ( Amer) Est GFR (Non-Af Amer) POC Glucose (mg/dL) 298 H 156 H 126 H Random Glucose Lactic Acid Calcium Phosphorus Magnesium Total Bilirubin AST ALT Alkaline Phosphatase Total Protein Albumin Globulin Albumin/Globulin Ratio Triglycerides Cholesterol LDL Cholesterol Direct HDL Cholesterol Thyroxine (T4) TSH 3rd Generation Venous Blood Potassium Urine Color Urine Clarity Urine pH Ur Specific [place] Urine Protein Urine Glucose (UA) Urine Ketones Urine Blood Urine Nitrate Urine Bilirubin Urine Urobilinogen Ur Leukocyte Esterase Urine RBC (Auto) Urine Microscopic WBC Ur Squamous Epith Cells EKG/Cardiology Studies: Cardiology / EKG Studies 04/28/17 17:12 EKG [ELECTROCARDIOGRAM] Stat Comment: Mode Of Transportation: PORTABLE Reason For Exam: Hyperglycemia Fingerstick Blood Sugar Results: 126 Review of Systems - Review of Systems All systems: reviewed and no additional remarkable complaints except (as above) Critical Care Progress Note - Nutrition Nutrition: Nutrition Category Date Time Status Consistent Carbohydrate [DIET] Diets 04/29/17 Lunch Ordered
[2017-04-29] MEDS ORDERED: Potassium Ch 20mEq in D5-1/2NS 1,000 ML IV SCH (12:15)
[2017-04-29 13:48] LABS: BLOOD UREA NITROGEN 5 mg/dl (7-17); CALCIUM 7.7 mg/dL (8.4-10.2); CARBON DIOXIDE 15 mmol/L (22-30); CHLORIDE 111 mmol/L (98-107); GFR AFRICAN-AMERICAN > 60; GLUCOSE,RANDOM 202 mg/dL (65-105); POTASSIUM 4.1 MMOL/L (3.6-5.0); SODIUM 140 mmol/l (132-148)
--- NOTE | 2017-04-29 14:45 | CP.PCM.HP ---
History of Present Illness - History of Present Illness History of Present Illness: 26 YO F w/ h/o IDDM and many previous admissions for DKA presented to the ED with blood glucose of >750, she was having symptoms of nausea associated with polyuria and polydypsia for one day. Denied any vomiting. Patient states she has been complient with her regimine but her sugar remains high. She was at [facility] yesterday but signed out AMA. ROS: 12 point review of systems negative except for as above. PMH: Bronchitis, IDDM, DKA PSH: SH: Occasional Alcohol;, smoker FH: Unknown Allergies: NKDA Present on Admission - Present on Admission Any Indicators Present on Admission: Yes History of Uncontrolled Diabetes: Yes Past Patient History - Infectious Disease Hx of Infectious Diseases: None - Tetanus Immunizations Tetanus Immunization: Unknown - Past Medical History & Family History Past Medical History?: Yes - Past Social History Smoking Status: Light Smoker < 10 Cigarettes Daily - CARDIAC Hx Cardiac Disorders: No - PULMONARY Hx Respiratory Disorders: Yes Hx Bronchitis: Yes - NEUROLOGICAL Hx Neurological Disorder: No - HEENT Hx HEENT Problems: No - RENAL Hx Chronic Kidney Disease: No - ENDOCRINE/METABOLIC Hx Endocrine Disorders: Yes - HEMATOLOGICAL/ONCOLOGICAL Hx Human Immunodeficiency Virus (HIV): No - INTEGUMENTARY Hx Dermatological Problems: No - MUSCULOSKELETAL/RHEUMATOLOGICAL Hx Falls: No - GASTROINTESTINAL Hx Gastrointestinal Disorders: No - GENITOURINARY/GYNECOLOGICAL Hx Genitourinary Disorders: No - PSYCHIATRIC Hx Substance Use: No - SURGICAL HISTORY Hx Surgeries: Yes Hx Section: Yes (x2) Other/Comment: rt thigh abcess I&D (2006) / insulin pump - ANESTHESIA Hx Anesthesia: Yes Hx Anesthesia Reactions: No Hx Malignant Hyperthermia: No Has any member of the family had a problem w/ anesthesia?: No Meds Allergies/Adverse Reactions: Allergies Allergy/AdvReac Type Severity Reaction Status Date / Time apple Allergy SWELLING Verified 04/28/17 17:01 Physical Exam - Constitutional Appears: No Acute Distress - Head Exam Head Exam: NORMAL INSPECTION - Eye Exam Eye Exam: Normal appearance - Respiratory Exam Respiratory Exam: Clear to Auscultation Bilateral, NORMAL BREATHING PATTERN - Cardiovascular Exam Cardiovascular Exam: REGULAR RHYTHM, +S1, +S2 - GI/Abdominal Exam GI & Abdominal Exam: Normal Bowel Sounds, Soft. absent: Tenderness - Neurological Exam Neurological exam: Alert, CN II-XII Intact, Oriented x3 - Skin Skin Exam: Normal Color, Warm Results - Vital Signs Recent Vital Signs: Last Vital Signs Temp 98.4 F 04/29/17 12:00 Pulse 105 H 04/29/17 14:00 Resp 19 04/29/17 14:00 BP 116/73 04/29/17 14:00 Pulse Ox 100 04/29/17 14:00 - Labs Result Diagrams: 04/29/17 05:00 04/29/17 13:16 Labs: Laboratory Results - last 24 hr 04/28/17 04/28/17 04/28/17 17:34 18:00 18:00 WBC 10.3 D RBC 4.31 Hgb 12.9 Hct 44.7 MCV 103.5 H D MCH 29.9 MCHC 28.9 L RDW 16.1 H Plt Count 432 H D MPV 7.8 Neut % (Auto) 83.0 H Lymph % (Auto) 12.5 L [place] % (Auto) 3.6 Eos % (Auto) 0.2 Baso % (Auto) 0.7 Neut # 8.5 H Lymph # 1.3 [place] # 0.4 Eos # 0.0 Baso # 0.1 pO2 VBG pH VBG pCO2 VBG HCO3 VBG Total CO2 VBG O2 Sat (Calc) VBG Base Excess VBG Potassium Sodium Chloride Glucose Lactate FiO2 Blood Gas Comments Crit Value Called To Crit Value Called By Crit Value Read Back Blood Gas Notified Time Potassium Carbon Dioxide Anion Gap BUN Creatinine Est GFR ( Amer) Est GFR (Non-Af Amer) POC Glucose (mg/dL) > 500 H* Random Glucose Hemoglobin A1c Lactic Acid Calcium Phosphorus Magnesium Total Bilirubin AST ALT Alkaline Phosphatase Total Protein Albumin Globulin Albumin/Globulin Ratio Triglycerides Cholesterol LDL Cholesterol Direct HDL Cholesterol Thyroxine (T4) TSH 3rd Generation Venous Blood Potassium Urine Color Colorless Urine Clarity Clear Urine pH 6.0 Ur Specific [place] 1.023 Urine Protein Negative Urine Glucose (UA) >=500 Urine Ketones 80 Urine Blood Small Urine Nitrate Negative Urine Bilirubin Negative Urine Urobilinogen 0.2-1.0 Ur Leukocyte Esterase Neg Urine RBC (Auto) 3 Urine Microscopic WBC 1 Ur Squamous Epith Cells 1 04/28/17 04/28/17 04/28/17 18:08 18:46 23:06 WBC RBC Hgb Hct MCV MCH MCHC RDW Plt Count MPV Neut % (Auto) Lymph % (Auto) [place] % (Auto) Eos % (Auto) Baso % (Auto) Neut # Lymph # [place] # Eos # Baso # pO2 49 VBG pH 7.03 L* VBG pCO2 18 L* VBG HCO3 5.0 VBG Total CO2 5.4 L VBG O2 Sat (Calc) 78.8 H VBG Base Excess -24.3 L VBG Potassium 5.4 H Sodium 132.0 139 Chloride 90.0 L 101 Glucose > 750 H* Lactate 2.9 H FiO2 21.0 Blood Gas Comments Lactate 2.9 Crit Value Called To marco antonio Severino Crit Value Called By 203 Crit Value Read Back Y Blood Gas Notified Time 1814 Potassium 5.4 H Carbon Dioxide < 5 L* D Anion Gap 38 H BUN 13 Creatinine 0.8 Est GFR ( Amer) > 60 Est GFR (Non-Af Amer) > 60 POC Glucose (mg/dL) 159 H Random Glucose 795 H* D Hemoglobin A1c Lactic Acid Calcium 8.3 L Phosphorus Magnesium Total Bilirubin 0.4 AST 91 H D ALT 98 H Alkaline Phosphatase 158 H D Total Protein 7.0 Albumin 4.2 Globulin 2.7 Albumin/Globulin Ratio 1.5 Triglycerides Cholesterol LDL Cholesterol Direct HDL Cholesterol Thyroxine (T4) TSH 3rd Generation Venous Blood Potassium 5.4 H Urine Color Urine Clarity Urine pH Ur Specific [place] Urine Protein Urine Glucose (UA) Urine Ketones Urine Blood Urine Nitrate Urine Bilirubin Urine Urobilinogen Ur Leukocyte Esterase Urine RBC (Auto) Urine Microscopic WBC Ur Squamous Epith Cells 04/28/17 04/29/17 04/29/17 23:41 00:07 01:04 WBC RBC Hgb Hct MCV MCH MCHC RDW Plt Count MPV Neut % (Auto) Lymph % (Auto) [place] % (Auto) Eos % (Auto) Baso % (Auto) Neut # Lymph # [place] # Eos # Baso # pO2 VBG pH VBG pCO2 VBG HCO3 VBG Total CO2 VBG O2 Sat (Calc) VBG Base Excess VBG Potassium Sodium 144 Chloride 111 H Glucose Lactate FiO2 Blood Gas Comments Crit Value Called To Crit Value Called By Crit Value Read Back Blood Gas Notified Time Potassium 4.1 Carbon Dioxide 7 L* D Anion Gap 30 H BUN 10 Creatinine 0.6 L Est GFR ( Amer) > 60 Est GFR (Non-Af Amer) > 60 POC Glucose (mg/dL) 96 176 H Random Glucose 148 H Hemoglobin A1c Lactic Acid Calcium 7.7 L Phosphorus Magnesium Total Bilirubin AST ALT Alkaline Phosphatase Total Protein Albumin Globulin Albumin/Globulin Ratio Triglycerides Cholesterol LDL Cholesterol Direct HDL Cholesterol Thyroxine (T4) TSH 3rd Generation Venous Blood Potassium Urine Color Urine Clarity Urine pH Ur Specific [place] Urine Protein Urine Glucose (UA) Urine Ketones Urine Blood Urine Nitrate Urine Bilirubin Urine Urobilinogen Ur Leukocyte Esterase Urine RBC (Auto) Urine Microscopic WBC Ur Squamous Epith Cells 04/29/17 04/29/17 04/29/17 02:00 02:05 02:17 WBC RBC Hgb Hct MCV MCH MCHC RDW Plt Count MPV Neut % (Auto) Lymph % (Auto) [place] % (Auto) Eos % (Auto) Baso % (Auto) Neut # Lymph # [place] # Eos # Baso # pO2 60 H VBG pH 7.30 L VBG pCO2 25 L VBG HCO3 15.1 VBG Total CO2 VBG O2 Sat (Calc) 94.7 H VBG Base Excess -12.3 L VBG Potassium Sodium 142 Chloride 112 H Glucose Lactate FiO2 Blood Gas Comments Crit Value Called To Crit Value Called By Crit Value Read Back Blood Gas Notified Time Potassium 3.9 Carbon Dioxide 12 L Anion Gap 22 H BUN 8 Creatinine 0.6 L Est GFR ( Amer) > 60 Est GFR (Non-Af Amer) > 60 POC Glucose (mg/dL) 221 H Random Glucose 195 H Hemoglobin A1c Lactic Acid Calcium 7.6 L Phosphorus Magnesium Total Bilirubin AST ALT Alkaline Phosphatase Total Protein Albumin Globulin Albumin/Globulin Ratio Triglycerides Cholesterol LDL Cholesterol Direct HDL Cholesterol Thyroxine (T4) TSH 3rd Generation Venous Blood Potassium Urine Color Urine Clarity Urine pH Ur Specific [place] Urine Protein Urine Glucose (UA) Urine Ketones Urine Blood Urine Nitrate Urine Bilirubin Urine Urobilinogen Ur Leukocyte Esterase Urine RBC (Auto) Urine Microscopic WBC Ur Squamous Epith Cells 04/29/17 04/29/17 04/29/17 03:03 04:05 05:00 WBC RBC Hgb Hct MCV MCH MCHC RDW Plt Count MPV Neut % (Auto) Lymph % (Auto) [place] % (Auto) Eos % (Auto) Baso % (Auto) Neut # Lymph # [place] # Eos # Baso # pO2 VBG pH VBG pCO2 VBG HCO3 VBG Total CO2 VBG O2 Sat (Calc) VBG Base Excess VBG Potassium Sodium 141 Chloride 111 H Glucose Lactate FiO2 Blood Gas Comments Crit Value Called To Crit Value Called By Crit Value Read Back Blood Gas Notified Time Potassium 3.2 L Carbon Dioxide 13 L Anion Gap 20 BUN 7 Creatinine 0.5 L Est GFR ( Amer) > 60 Est GFR (Non-Af Amer) > 60 POC Glucose (mg/dL) 111 H 210 H Random Glucose 234 H Hemoglobin A1c Lactic Acid Calcium 7.2 L Phosphorus 1.7 L Magnesium 1.7 Total Bilirubin 0.3 AST 78 H ALT 79 H Alkaline Phosphatase 97 Total Protein 5.6 L Albumin 2.9 L D Globulin 2.7 Albumin/Globulin Ratio 1.1 Triglycerides 165 H D Cholesterol 131 LDL Cholesterol Direct 66 HDL Cholesterol 44 Thyroxine (T4) 5.03 L TSH 3rd Generation 0.72 Venous Blood Potassium Urine Color Urine Clarity Urine pH Ur Specific [place] Urine Protein Urine Glucose (UA) Urine Ketones Urine Blood Urine Nitrate Urine Bilirubin Urine Urobilinogen Ur Leukocyte Esterase Urine RBC (Auto) Urine Microscopic WBC Ur Squamous Epith Cells 04/29/17 04/29/17 04/29/17 05:00 05:00 05:00 WBC 8.8 RBC 3.34 L Hgb 10.2 L D Hct 31.1 L MCV 93.3 D MCH 30.6 MCHC 32.8 L RDW 13.9 Plt Count 282 D MPV Neut % (Auto) Lymph % (Auto) [place] % (Auto) Eos % (Auto) Baso % (Auto) Neut # Lymph # [place] # Eos # Baso # pO2 VBG pH VBG pCO2 VBG HCO3 VBG Total CO2 VBG O2 Sat (Calc) VBG Base Excess VBG Potassium Sodium Chloride Glucose Lactate FiO2 Blood Gas Comments Crit Value Called To Crit Value Called By Crit Value Read Back Blood Gas Notified Time Potassium Carbon Dioxide Anion Gap BUN Creatinine Est GFR ( Amer) Est GFR (Non-Af Amer) POC Glucose (mg/dL) Random Glucose Hemoglobin A1c 10.0 H Lactic Acid 3.8 H Calcium Phosphorus Magnesium Total Bilirubin AST ALT Alkaline Phosphatase Total Protein Albumin Globulin Albumin/Globulin Ratio Triglycerides Cholesterol LDL Cholesterol Direct HDL Cholesterol Thyroxine (T4) TSH 3rd Generation Venous Blood Potassium Urine Color Urine Clarity Urine pH Ur Specific [place] Urine Protein Urine Glucose (UA) Urine Ketones Urine Blood Urine Nitrate Urine Bilirubin Urine Urobilinogen Ur Leukocyte Esterase Urine RBC (Auto) Urine Microscopic WBC Ur Squamous Epith Cells 04/29/17 04/29/17 04/29/17 05:02 06:13 07:03 WBC RBC Hgb Hct MCV MCH MCHC RDW Plt Count MPV Neut % (Auto) Lymph % (Auto) [place] % (Auto) Eos % (Auto) Baso % (Auto) Neut # Lymph # [place] # Eos # Baso # pO2 VBG pH VBG pCO2 VBG HCO3 VBG Total CO2 VBG O2 Sat (Calc) VBG Base Excess VBG Potassium Sodium Chloride Glucose Lactate FiO2 Blood Gas Comments Crit Value Called To Crit Value Called By Crit Value Read Back Blood Gas Notified Time Potassium Carbon Dioxide Anion Gap BUN Creatinine Est GFR ( Amer) Est GFR (Non-Af Amer) POC Glucose (mg/dL) 276 H 152 H 120 H Random Glucose Hemoglobin A1c Lactic Acid Calcium Phosphorus Magnesium Total Bilirubin AST ALT Alkaline Phosphatase Total Protein Albumin Globulin Albumin/Globulin Ratio Triglycerides Cholesterol LDL Cholesterol Direct HDL Cholesterol Thyroxine (T4) TSH 3rd Generation Venous Blood Potassium Urine Color Urine Clarity Urine pH Ur Specific [place] Urine Protein Urine Glucose (UA) Urine Ketones Urine Blood Urine Nitrate Urine Bilirubin Urine Urobilinogen Ur Leukocyte Esterase Urine RBC (Auto) Urine Microscopic WBC Ur Squamous Epith Cells 04/29/17 04/29/17 04/29/17 08:05 09:02 10:29 WBC RBC Hgb Hct MCV MCH MCHC RDW Plt Count MPV Neut % (Auto) Lymph % (Auto) [place] % (Auto) Eos % (Auto) Baso % (Auto) Neut # Lymph # [place] # Eos # Baso # pO2 VBG pH VBG pCO2 VBG HCO3 VBG Total CO2 VBG O2 Sat (Calc) VBG Base Excess VBG Potassium Sodium Chloride Glucose Lactate FiO2 Blood Gas Comments Crit Value Called To Crit Value Called By Crit Value Read Back Blood Gas Notified Time Potassium Carbon Dioxide Anion Gap BUN Creatinine Est GFR ( Amer) Est GFR (Non-Af Amer) POC Glucose (mg/dL) 236 H 298 H 156 H Random Glucose Hemoglobin A1c Lactic Acid Calcium Phosphorus Magnesium Total Bilirubin AST ALT Alkaline Phosphatase Total Protein Albumin Globulin Albumin/Globulin Ratio Triglycerides Cholesterol LDL Cholesterol Direct HDL Cholesterol Thyroxine (T4) TSH 3rd Generation Venous Blood Potassium Urine Color Urine Clarity Urine pH Ur Specific [place] Urine Protein Urine Glucose (UA) Urine Ketones Urine Blood Urine Nitrate Urine Bilirubin Urine Urobilinogen Ur Leukocyte Esterase Urine RBC (Auto) Urine Microscopic WBC Ur Squamous Epith Cells 04/29/17 04/29/17 04/29/17 11:17 12:05 13:01 WBC RBC Hgb Hct MCV MCH MCHC RDW Plt Count MPV Neut % (Auto) Lymph % (Auto) [place] % (Auto) Eos % (Auto) Baso % (Auto) Neut # Lymph # [place] # Eos # Baso # pO2 VBG pH VBG pCO2 VBG HCO3 VBG Total CO2 VBG O2 Sat (Calc) VBG Base Excess VBG Potassium Sodium Chloride Glucose Lactate FiO2 Blood Gas Comments Crit Value Called To Crit Value Called By Crit Value Read Back Blood Gas Notified Time Potassium Carbon Dioxide Anion Gap BUN Creatinine Est GFR ( Amer) Est GFR (Non-Af Amer) POC Glucose (mg/dL) 126 H 145 H 158 H Random Glucose Hemoglobin A1c Lactic Acid Calcium Phosphorus Magnesium Total Bilirubin AST ALT Alkaline Phosphatase Total Protein Albumin Globulin Albumin/Globulin Ratio Triglycerides Cholesterol LDL Cholesterol Direct HDL Cholesterol Thyroxine (T4) TSH 3rd Generation Venous Blood Potassium Urine Color Urine Clarity Urine pH Ur Specific [place] Urine Protein Urine Glucose (UA) Urine Ketones Urine Blood Urine Nitrate Urine Bilirubin Urine Urobilinogen Ur Leukocyte Esterase Urine RBC (Auto) Urine Microscopic WBC Ur Squamous Epith Cells 04/29/17 13:16 WBC RBC Hgb Hct MCV MCH MCHC RDW Plt Count MPV Neut % (Auto) Lymph % (Auto) [place] % (Auto) Eos % (Auto) Baso % (Auto) Neut # Lymph # [place] # Eos # Baso # pO2 VBG pH VBG pCO2 VBG HCO3 VBG Total CO2 VBG O2 Sat (Calc) VBG Base Excess VBG Potassium Sodium 140 Chloride 111 H Glucose Lactate FiO2 Blood Gas Comments Crit Value Called To Crit Value Called By Crit Value Read Back Blood Gas Notified Time Potassium 4.1 Carbon Dioxide 15 L Anion Gap 18 BUN 5 L Creatinine 0.5 L Est GFR ( Amer) > 60 Est GFR (Non-Af Amer) > 60 POC Glucose (mg/dL) Random Glucose 202 H Hemoglobin A1c Lactic Acid Calcium 7.7 L Phosphorus Magnesium Total Bilirubin AST ALT Alkaline Phosphatase Total Protein Albumin Globulin Albumin/Globulin Ratio Triglycerides Cholesterol LDL Cholesterol Direct HDL Cholesterol Thyroxine (T4) TSH 3rd Generation Venous Blood Potassium Urine Color Urine Clarity Urine pH Ur Specific [place] Urine Protein Urine Glucose (UA) Urine Ketones Urine Blood Urine Nitrate Urine Bilirubin Urine Urobilinogen Ur Leukocyte Esterase Urine RBC (Auto) Urine Microscopic WBC Ur Squamous Epith Cells Assessment & Plan - Assessment and Plan (Free Text) Assessment: (1) DKA (diabetic ketoacidosis) Assessment and Plan: -IVF -insulin drip -monitor BG and lytes and replete -Dr. Gallego has been consulted Status: Acute (2) DVT prophylaxis Assessment and Plan: lovenox Status: Acute
[2017-04-29] MEDS: Insulin Lispro (humaLOG) 100 Units/ml Inj SC SCH ×3 (16:28→22:17)
[2017-04-29] MEDS: Pantoprazole 40 mg EC Tab PO SCH (18:34)
[2017-04-29] MEDS ORDERED: Insulin Detemir 100 Units/ml Inj SC SCH (22:00)
--- NOTE | 2017-04-29 22:03 | PN ---
ENDO FOLLOWUP NOTE LOCATION: ICU room 427. SUBJECTIVE: This is a 26-year-old female with recent uncontrolled type 1 insulin-dependent diabetes, presenting once again here with marked metabolic acidosis and dehydration and is now being followed closely for metabolic management. She has had multiple hospital readmissions for recurrent diabetic ketoacidosis and she states that she is fairly compliant with her insulin regimen. However, on further inquiry, she admits to delayed meals and delayed insulin administration especially with her meals as she is at work as noted. Her glycemic profile has been fluctuating, but much improved today as noted with glucose levels ranging from 126 to 145 and 158 mg/dL. Her latest chemistry showed a BUN of 5, sodium 140, potassium 4.1, chloride 111, CO2 of 15, glucose 202, and creatinine 0.5. The repeat glucose at dinnertime is 395 as she has been off the insulin drip since this morning as noted. So, at this time, we will continue the vigorous IV hydration as ordered and obtain serial chemistries and supplement accordingly as needed. We will start her right away to be at dinnertime with a more physiologic basal and bolus insulin drug combination with Humalog given as 10 units subcu t.i.d. before meals to start today as ordered. We will modify the coverage scale to obviate hypoglycemia and detailed orders have been given for a very low dose correction scale using Humalog insulin as ordered. We will add basal insulin tonight with Levemir to be given as 24 units subcu at bedtime daily to start tonight. We will obtain serial chemistries and supplement accordingly as needed. We will also be calling the [employer] regarding the approval of her insulin pump, which will at least improve her overall metabolic control if she complies with the aforementioned. We will follow with you. Monet Gallego MD
[2017-04-30 05:29] LABS: HEMATOCRIT 32.9 % (34.0-47.0); MEAN CELL VOLUME 92.3 fl (81.0-99.0); MEAN CORPUSCULAR HEMOGLOBIN 30.6 pg (27.0-31.0); MEAN CORPUSCULAR HGB CONC 33.1 g/dL (33.0-37.0); RED CELL DISTRIBUTION WIDTH 14.2 % (11.5-14.5); WHITE BLOOD COUNT 7.5 K/uL (4.8-10.8)
[2017-04-30 05:31] LABS: BLOOD UREA NITROGEN 6 mg/dl (7-17); CALCIUM 8.2 mg/dL (8.4-10.2); CARBON DIOXIDE 13 mmol/L (22-30); CHLORIDE 110 mmol/L (98-107); GFR AFRICAN-AMERICAN > 60; GLUCOSE,RANDOM 110 mg/dL (65-105); POTASSIUM 3.7 MMOL/L (3.6-5.0); SODIUM 139 mmol/l (132-148)
[2017-04-30] MEDS: Insulin Lispro (humaLOG) 100 Units/ml Inj SC SCH ×6 (06:39→21:38)
[2017-04-30] MEDS: Potassium & Sodium Phosphate PO SCH ×3 (08:54→18:44)
[2017-04-30] MEDS: Pantoprazole 40 mg EC Tab PO SCH (08:55)
--- NOTE | 2017-04-30 09:40 | CP.CCUPN ---
CCU Subjective - Physician Review Subjective (Free Text): Accuchecks have been done Q3H, levels acceptable in mid 100's to low 200's but elevation to 400's noted after meals. Started on Levemir by Endo. Except for mild chest discomfort yesterday, denies any new symptoms. Started on Protonix PO for possible GERD symptoms, 12lead EKG did not show any new changes. Other vitals and I/O's reviewed. ROS: No other pertinent negs or positives on 10+ system review. [facility] Nursing and physician documentation reviewed to date; no new pertinent info noted relevant to current medical problems. MAJOR PROBLEMS: 1. Recurrent DKA 2. Mild Hyperkalemia PLAN: 1. IV hydration and insulin regimen until anion gap normalizes. 2. Follow repeat K, check serum Mag / Phos levels. 3. Neurochecks and seizure precautions in ICU. 4. Endocrine eval. Last HGBA1c was 10.5% and usually in 9.5 - 9.8% range since December 2106. Would consider other etiologies for DKA recurrences: family, psychosocial issues. CCU Objective - Vital Signs / Intake & Output Vital Signs (Last 4 hours): Vital Signs Pulse Resp BP 04/30/17 06:00 86 19 129/77 Intake and Output (Last 8hrs): Intake & Output 04/29/17 04/30/17 04/30/17 22:59 06:59 14:59 Intake Total 2500 1000 Balance 2500 1000 Intake: IV 2500 1000 Other: # Voids Urine, Voided 2 - Physical Exam Head: Positive for: Normocephalic Pupils: Positive for: PERRL Extroacular Muscles: Positive for: EOMI Conjunctiva: Negative for: Icteric Mouth: Positive for: Dry Neck: Negative for: Meningeal Signs, JVD Respiratory/Chest: Positive for: Clear to Auscultation. Negative for: Accessory Muscle Use, Wheezes Cardiovascular: Positive for: Regular Rate and Rhythm, Tachycardic. Negative for: Murmurs, Rub Abdomen: Positive for: Normal Bowel Sounds. Negative for: Tenderness, Distention Lower Extremity: Positive for: Normal Inspection, NORMAL PULSES, Capillary Refill < 2 s. Negative for: Edema, CALF TENDERNESS, Cyanosis Neurological: Positive for: GCS=15, Motor Func Grossly Intact, Normal Sensory Function Skin: Positive for: Warm. Negative for: Rashes Psychiatric: Positive for: Alert, Oriented x 3, Normal Concentration, Normal Affect - Medications Active Medications: Active Medications Generic Name Dose Route Start Last Admin Trade Name Freq PRN Reason Stop Dose Admin Dextrose 0 ml 04/28/17 18:21 Dextrose 50% Inj IV STAT PRN Hyglycemia Protocol Protocol Dextrose 0 gm 04/28/17 18:21 Glutose 15 PO ONCE PRN Hypoglycemia Protocol Protocol Glucagon 0 mg 04/28/17 18:21 Glucagen Diagnostic Kit IM STAT PRN Hypoglycemia Protocol Protocol Potassium Chloride/Dextrose/Sod Cl 1,000 mls @ 125 mls/hr 04/29/17 12:15 07/04 14:26 Potassium Chl 20 Meq In D5-1/2ns IV 04/30/17 12:09 125 mls/hr .Q8H [facility] Administration Ibuprofen 400 mg 04/28/17 20:35 Motrin Tab PO Q6H PRN Pain, moderate (4-7) Insulin Detemir 24 units 04/29/17 22:00 04/29/17 22:15 Levemir SC 24 u HS [facility]ET[facility] Administration Insulin Human Lispro 10 units 04/29/17 16:30 04/30/17 07:45 Humalog SC 10 units AC [facility] Administration Insulin Human Lispro 0 units 04/29/17 16:30 04/30/17 06:39 Humalog SC Not Given ACHS [facility] Protocol Metoclopramide HCl 10 mg 04/28/17 20:35 Reglan IVP Q6H PRN Nausea/Vomiting Pantoprazole Sodium 40 mg 04/29/17 18:30 04/29/17 18:34 Protonix Ec Tab PO 40 mg DAILY [facility] Administration Potassium Phos/Sodium Phos 1 pkt 04/29/17 09:00 04/29/17 16:29 Neutra-Phos PO 1 pkt TID [facility] Administration - Patient Studies Lab Studies: Lab Studies 04/30/17 04/30/17 04/30/17 Range/Units 08:38 06:34 04:30 WBC (4.8-10.8) K/uL RBC (3.80-5.20) Mil/uL Hgb (12.0-16.0) g/dL Hct (34.0-47.0) % MCV (81.0-99.0) fl MCH (27.0-31.0) pg MCHC (33.0-37.0) g/dL RDW (11.5-14.5) % Plt Count (130-400) K/uL Sodium 139 (132-148) mmol/l Potassium 3.7 (3.6-5.0) MMOL/L Chloride 110 H (98-107) mmol/L Carbon Dioxide 13 L (22-30) mmol/L Anion Gap 20 (10-20) BUN 6 L (7-17) mg/dl Creatinine 0.5 L (0.7-1.2) mg/dL Est GFR ( Amer) > 60 Est GFR (Non-Af Amer) > 60 POC Glucose (mg/dL) 86 118 H (65-110) mg/dL Random Glucose 110 H (65-105) mg/dL Hemoglobin A1c (4.2-6.5) % Calcium 8.2 L (8.4-10.2) mg/dL Urine Opiates Screen (NEGATIVE) Urine Methadone Screen (NEGATIVE) Ur Barbiturates Screen (NEGATIVE) Ur Phencyclidine Scrn (NEGATIVE) Ur Amphetamines Screen (NEGATIVE) U Benzodiazepines Scrn (NEGATIVE) U Oth Cocaine Metabols (NEGATIVE) U Cannabinoids Screen (NEGATIVE) 04/30/17 04/30/17 04/30/17 Range/Units 04:30 04:09 01:20 WBC 7.5 (4.8-10.8) K/uL RBC 3.56 L (3.80-5.20) Mil/uL Hgb 10.9 L (12.0-16.0) g/dL Hct 32.9 L (34.0-47.0) % MCV 92.3 (81.0-99.0) fl MCH 30.6 (27.0-31.0) pg MCHC 33.1 (33.0-37.0) g/dL RDW 14.2 (11.5-14.5) % Plt Count 279 (130-400) K/uL Sodium (132-148) mmol/l Potassium (3.6-5.0) MMOL/L Chloride (98-107) mmol/L Carbon Dioxide (22-30) mmol/L Anion Gap (10-20) BUN (7-17) mg/dl Creatinine (0.7-1.2) mg/dL Est GFR ( Amer) Est GFR (Non-Af Amer) POC Glucose (mg/dL) 114 H 223 H (65-110) mg/dL Random Glucose (65-105) mg/dL Hemoglobin A1c (4.2-6.5) % Calcium (8.4-10.2) mg/dL Urine Opiates Screen (NEGATIVE) Urine Methadone Screen (NEGATIVE) Ur Barbiturates Screen (NEGATIVE) Ur Phencyclidine Scrn (NEGATIVE) Ur Amphetamines Screen (NEGATIVE) U Benzodiazepines Scrn (NEGATIVE) U Oth Cocaine Metabols (NEGATIVE) U Cannabinoids Screen (NEGATIVE) 04/29/17 04/29/17 04/29/17 Range/Units 22:10 18:02 17:44 WBC (4.8-10.8) K/uL RBC (3.80-5.20) Mil/uL Hgb (12.0-16.0) g/dL Hct (34.0-47.0) % MCV (81.0-99.0) fl MCH (27.0-31.0) pg MCHC (33.0-37.0) g/dL RDW (11.5-14.5) % Plt Count (130-400) K/uL Sodium (132-148) mmol/l Potassium (3.6-5.0) MMOL/L Chloride (98-107) mmol/L Carbon Dioxide (22-30) mmol/L Anion Gap (10-20) BUN (7-17) mg/dl Creatinine (0.7-1.2) mg/dL Est GFR ( Amer) Est GFR (Non-Af Amer) POC Glucose (mg/dL) 443 H* 289 H (65-110) mg/dL Random Glucose (65-105) mg/dL Hemoglobin A1c (4.2-6.5) % Calcium (8.4-10.2) mg/dL Urine Opiates Screen Negative (NEGATIVE) Urine Methadone Screen Negative (NEGATIVE) Ur Barbiturates Screen Negative (NEGATIVE) Ur Phencyclidine Scrn Negative (NEGATIVE) Ur Amphetamines Screen Negative (NEGATIVE) U Benzodiazepines Scrn Negative (NEGATIVE) U Oth Cocaine Metabols Negative (NEGATIVE) U Cannabinoids Screen Negative (NEGATIVE) 04/29/17 04/29/17 04/29/17 Range/Units 16:23 13:16 13:01 WBC (4.8-10.8) K/uL RBC (3.80-5.20) Mil/uL Hgb (12.0-16.0) g/dL Hct (34.0-47.0) % MCV (81.0-99.0) fl MCH (27.0-31.0) pg MCHC (33.0-37.0) g/dL RDW (11.5-14.5) % Plt Count (130-400) K/uL Sodium 140 (132-148) mmol/l Potassium 4.1 (3.6-5.0) MMOL/L Chloride 111 H (98-107) mmol/L Carbon Dioxide 15 L (22-30) mmol/L Anion Gap 18 (10-20) BUN 5 L (7-17) mg/dl Creatinine 0.5 L (0.7-1.2) mg/dL Est GFR ( Amer) > 60 Est GFR (Non-Af Amer) > 60 POC Glucose (mg/dL) 395 H 158 H (65-110) mg/dL Random Glucose 202 H (65-105) mg/dL Hemoglobin A1c (4.2-6.5) % Calcium 7.7 L (8.4-10.2) mg/dL Urine Opiates Screen (NEGATIVE) Urine Methadone Screen (NEGATIVE) Ur Barbiturates Screen (NEGATIVE) Ur Phencyclidine Scrn (NEGATIVE) Ur Amphetamines Screen (NEGATIVE) U Benzodiazepines Scrn (NEGATIVE) U Oth Cocaine Metabols (NEGATIVE) U Cannabinoids Screen (NEGATIVE) 04/29/17 04/29/17 04/29/17 Range/Units 12:05 11:17 10:29 WBC (4.8-10.8) K/uL RBC (3.80-5.20) Mil/uL Hgb (12.0-16.0) g/dL Hct (34.0-47.0) % MCV (81.0-99.0) fl MCH (27.0-31.0) pg MCHC (33.0-37.0) g/dL RDW (11.5-14.5) % Plt Count (130-400) K/uL Sodium (132-148) mmol/l Potassium (3.6-5.0) MMOL/L Chloride (98-107) mmol/L Carbon Dioxide (22-30) mmol/L Anion Gap (10-20) BUN (7-17) mg/dl Creatinine (0.7-1.2) mg/dL Est GFR ( Amer) Est GFR (Non-Af Amer) POC Glucose (mg/dL) 145 H 126 H 156 H (65-110) mg/dL Random Glucose (65-105) mg/dL Hemoglobin A1c (4.2-6.5) % Calcium (8.4-10.2) mg/dL Urine Opiates Screen (NEGATIVE) Urine Methadone Screen (NEGATIVE) Ur Barbiturates Screen (NEGATIVE) Ur Phencyclidine Scrn (NEGATIVE) Ur Amphetamines Screen (NEGATIVE) U Benzodiazepines Scrn (NEGATIVE) U Oth Cocaine Metabols (NEGATIVE) U Cannabinoids Screen (NEGATIVE) 04/29/17 04/29/17 04/28/17 Range/Units 09:02 05:00 20:18 WBC (4.8-10.8) K/uL RBC (3.80-5.20) Mil/uL Hgb (12.0-16.0) g/dL Hct (34.0-47.0) % MCV (81.0-99.0) fl MCH (27.0-31.0) pg MCHC (33.0-37.0) g/dL RDW (11.5-14.5) % Plt Count (130-400) K/uL Sodium (132-148) mmol/l Potassium (3.6-5.0) MMOL/L Chloride (98-107) mmol/L Carbon Dioxide (22-30) mmol/L Anion Gap (10-20) BUN (7-17) mg/dl Creatinine (0.7-1.2) mg/dL Est GFR ( Amer) Est GFR (Non-Af Amer) POC Glucose (mg/dL) 298 H > 500 H* (65-110) mg/dL Random Glucose (65-105) mg/dL Hemoglobin A1c 10.0 H (4.2-6.5) % Calcium (8.4-10.2) mg/dL Urine Opiates Screen (NEGATIVE) Urine Methadone Screen (NEGATIVE) Ur Barbiturates Screen (NEGATIVE) Ur Phencyclidine Scrn (NEGATIVE) Ur Amphetamines Screen (NEGATIVE) U Benzodiazepines Scrn (NEGATIVE) U Oth Cocaine Metabols (NEGATIVE) U Cannabinoids Screen (NEGATIVE) 04/28/17 Range/Units 17:34 WBC (4.8-10.8) K/uL RBC (3.80-5.20) Mil/uL Hgb (12.0-16.0) g/dL Hct (34.0-47.0) % MCV (81.0-99.0) fl MCH (27.0-31.0) pg MCHC (33.0-37.0) g/dL RDW (11.5-14.5) % Plt Count (130-400) K/uL Sodium (132-148) mmol/l Potassium (3.6-5.0) MMOL/L Chloride (98-107) mmol/L Carbon Dioxide (22-30) mmol/L Anion Gap (10-20) BUN (7-17) mg/dl Creatinine (0.7-1.2) mg/dL Est GFR ( Amer) Est GFR (Non-Af Amer) POC Glucose (mg/dL) > 500 H* (65-110) mg/dL Random Glucose (65-105) mg/dL Hemoglobin A1c (4.2-6.5) % Calcium (8.4-10.2) mg/dL Urine Opiates Screen (NEGATIVE) Urine Methadone Screen (NEGATIVE) Ur Barbiturates Screen (NEGATIVE) Ur Phencyclidine Scrn (NEGATIVE) Ur Amphetamines Screen (NEGATIVE) U Benzodiazepines Scrn (NEGATIVE) U Oth Cocaine Metabols (NEGATIVE) U Cannabinoids Screen (NEGATIVE) Laboratory Results - last 24 hr 04/28/17 04/28/17 04/29/17 17:34 20:18 05:00 WBC RBC Hgb Hct MCV MCH MCHC RDW Plt Count Sodium Potassium Chloride Carbon Dioxide Anion Gap BUN Creatinine Est GFR ( Amer) Est GFR (Non-Af Amer) POC Glucose (mg/dL) > 500 H* > 500 H* Random Glucose Hemoglobin A1c 10.0 H Calcium Urine Opiates Screen Urine Methadone Screen Ur Barbiturates Screen Ur Phencyclidine Scrn Ur Amphetamines Screen U Benzodiazepines Scrn U Oth Cocaine Metabols U Cannabinoids Screen 04/29/17 04/29/17 04/29/17 09:02 10:29 11:17 WBC RBC Hgb Hct MCV MCH MCHC RDW Plt Count Sodium Potassium Chloride Carbon Dioxide Anion Gap BUN Creatinine Est GFR ( Amer) Est GFR (Non-Af Amer) POC Glucose (mg/dL) 298 H 156 H 126 H Random Glucose Hemoglobin A1c Calcium Urine Opiates Screen Urine Methadone Screen Ur Barbiturates Screen Ur Phencyclidine Scrn Ur Amphetamines Screen U Benzodiazepines Scrn U Oth Cocaine Metabols U Cannabinoids Screen 04/29/17 04/29/17 04/29/17 12:05 13:01 13:16 WBC RBC Hgb Hct MCV MCH MCHC RDW Plt Count Sodium 140 Potassium 4.1 Chloride 111 H Carbon Dioxide 15 L Anion Gap 18 BUN 5 L Creatinine 0.5 L Est GFR ( Amer) > 60 Est GFR (Non-Af Amer) > 60 POC Glucose (mg/dL) 145 H 158 H Random Glucose 202 H Hemoglobin A1c Calcium 7.7 L Urine Opiates Screen Urine Methadone Screen Ur Barbiturates Screen Ur Phencyclidine Scrn Ur Amphetamines Screen U Benzodiazepines Scrn U Oth Cocaine Metabols U Cannabinoids Screen 04/29/17 04/29/17 04/29/17 16:23 17:44 18:02 WBC RBC Hgb Hct MCV MCH MCHC RDW Plt Count Sodium Potassium Chloride Carbon Dioxide Anion Gap BUN Creatinine Est GFR ( Amer) Est GFR (Non-Af Amer) POC Glucose (mg/dL) 395 H 289 H Random Glucose Hemoglobin A1c Calcium Urine Opiates Screen Negative Urine Methadone Screen Negative Ur Barbiturates Screen Negative Ur Phencyclidine Scrn Negative Ur Amphetamines Screen Negative U Benzodiazepines Scrn Negative U Oth Cocaine Metabols Negative U Cannabinoids Screen Negative 04/29/17 04/30/17 04/30/17 22:10 01:20 04:09 WBC RBC Hgb Hct MCV MCH MCHC RDW Plt Count Sodium Potassium Chloride Carbon Dioxide Anion Gap BUN Creatinine Est GFR ( Amer) Est GFR (Non-Af Amer) POC Glucose (mg/dL) 443 H* 223 H 114 H Random Glucose Hemoglobin A1c Calcium Urine Opiates Screen Urine Methadone Screen Ur Barbiturates Screen Ur Phencyclidine Scrn Ur Amphetamines Screen U Benzodiazepines Scrn U Oth Cocaine Metabols U Cannabinoids Screen 04/30/17 04/30/17 04/30/17 04:30 04:30 06:34 WBC 7.5 RBC 3.56 L Hgb 10.9 L Hct 32.9 L MCV 92.3 MCH 30.6 MCHC 33.1 RDW 14.2 Plt Count 279 Sodium 139 Potassium 3.7 Chloride 110 H Carbon Dioxide 13 L Anion Gap 20 BUN 6 L Creatinine 0.5 L Est GFR ( Amer) > 60 Est GFR (Non-Af Amer) > 60 POC Glucose (mg/dL) 118 H Random Glucose 110 H Hemoglobin A1c Calcium 8.2 L Urine Opiates Screen Urine Methadone Screen Ur Barbiturates Screen Ur Phencyclidine Scrn Ur Amphetamines Screen U Benzodiazepines Scrn U Oth Cocaine Metabols U Cannabinoids Screen 04/30/17 08:38 WBC RBC Hgb Hct MCV MCH MCHC RDW Plt Count Sodium Potassium Chloride Carbon Dioxide Anion Gap BUN Creatinine Est GFR ( Amer) Est GFR (Non-Af Amer) POC Glucose (mg/dL) 86 Random Glucose Hemoglobin A1c Calcium Urine Opiates Screen Urine Methadone Screen Ur Barbiturates Screen Ur Phencyclidine Scrn Ur Amphetamines Screen U Benzodiazepines Scrn U Oth Cocaine Metabols U Cannabinoids Screen Fingerstick Blood Sugar Results: 86 Review of Systems - Review of Systems All systems: reviewed and no additional remarkable complaints except (as above) Critical Care Progress Note - Nutrition Nutrition: Nutrition Category Date Time Status Consistent Carbohydrate [DIET] Diets 04/29/17 Lunch Active
--- NOTE | 2017-04-30 09:48 | CP.PCM.PN ---
Subjective - Date & Time of Evaluation Date of Evaluation: 04/30/17 Time of Evaluation: 08:00 - Subjective Subjective: Patient is seen and examined at bedside with Dr. Roy. - Patient is seen resting comfortably. Denies any overnight events. Seems to be doing well. Denies any nausea, vomiting. Objective - Vital Signs/Intake and Output Vital Signs (last 24 hours): Temp Pulse Resp BP Pulse Ox 98.7 F 86 19 129/77 100 04/30/17 04:00 04/30/17 06:00 04/30/17 06:00 04/30/17 06:00 04/29/17 20:00 Intake and Output: 04/30/17 04/30/17 06:59 18:59 Intake Total 1250 Balance 1250 - Medications Medications: Current Medications Dextrose (Dextrose 50% Inj) 0 ml IV STAT PRN; Protocol PRN Reason: Hyglycemia Protocol Dextrose (Glutose 15) 0 gm PO ONCE PRN; Protocol PRN Reason: Hypoglycemia Protocol Glucagon (Glucagen Diagnostic Kit) 0 mg IM STAT PRN; Protocol PRN Reason: Hypoglycemia Protocol Potassium Chloride/Dextrose/Sod Cl (Potassium Chl 20 Meq In D5-1/2ns) 1,000 mls @ 125 mls/hr IV .Q8H [facility] Stop: 04/30/17 12:09 Last Admin: 04/29/17 14:26 Dose: 125 mls/hr Ibuprofen (Motrin Tab) 400 mg PO Q6H PRN PRN Reason: Pain, moderate (4-7) Insulin Detemir (Levemir) 24 units SC HS [facility] Last Admin: 04/29/17 22:15 Dose: 24 u Insulin Human Lispro (Humalog) 10 units SC AC [facility] Last Admin: 04/30/17 07:45 Dose: 10 units Insulin Human Lispro (Humalog) 0 units SC ACHS [facility] PRN Reason: Protocol Last Admin: 04/30/17 06:39 Dose: Not Given Metoclopramide HCl (Reglan) 10 mg IVP Q6H PRN PRN Reason: Nausea/Vomiting Pantoprazole Sodium (Protonix Ec Tab) 40 mg PO DAILY [facility] Last Admin: 04/30/17 08:55 Dose: 40 mg Potassium Phos/Sodium Phos (Neutra-Phos) 1 pkt PO TID [facility] Last Admin: 04/30/17 08:54 Dose: 1 pkt - Labs Labs: 04/30/17 04:30 04/30/17 04:30 - Constitutional Appears: No Acute Distress - Head Exam Head Exam: NORMAL INSPECTION - Eye Exam Eye Exam: Normal appearance - ENT Exam ENT Exam: Mucous Membranes Moist - Respiratory Exam Respiratory Exam: Clear to Ausculation Bilateral, NORMAL BREATHING PATTERN. absent: Rhonchi, Wheezes - GI/Abdominal Exam GI & Abdominal Exam: Soft, Normal Bowel Sounds. absent: Tenderness - Neurological Exam Neurological Exam: Alert, Awake - Skin Skin Exam: Normal Color, Warm Assessment and Plan - Assessment and Plan (Free Text) Assessment: (1) DKA (diabetic ketoacidosis) Assessment and Plan: -Continue IV hydration and insulin regimen untill anion gap normalizes. -monitor BG and lytes and replete -Dr. Gallego has been consulted - HBA1c: 10.5 Status: Acute (2) DVT prophylaxis Assessment and Plan: lovenox Status: Acute
--- NOTE | 2017-04-30 17:18 | PN ---
ENDO FOLLOWUP NOTE DATE: LOCATION: 426, ICU. SUBJECTIVE: This is a 26-year-old female with recent uncontrolled type 1 insulin-dependent diabetes, presenting here with diabetic ketoacidosis and dehydration and generalized body weakness and received intensive insulin therapy and vigorous IV hydration as ordered. Her glycemic profile has been quite fluctuating and erratic because of the variability of her oral intake as noted. Her repeat glucose levels today have ranged from 71-86 and 118 mg/dL. Her latest chemistry showed a BUN of 6, sodium 139, potassium 3.7, chloride 110, CO2 is 13, glucose is 110, and creatinine 0.5. So, at this time, we will actually need to restart her IV hydration because of the persistent metabolic acidosis as noted. We will modify her basal and bolus insulin regimen and lower the Humalog to 6 units subcu t.i.d. before meals as ordered. We will also lower the Levemir to 18 units subcu at bedtime daily as given. We will titrate incrementally as indicated to optimize metabolic control. We will resume her normal saline given at 150 mL/hour as ordered. We will follow and advise accordingly. Monet Gallego MD
[2017-04-30] MEDS: Sodium Chloride 0.9% 1,000 ML IV SCH (21:44)
[2017-04-30] MEDS ORDERED: Insulin Detemir 100 Units/ml Inj SC SCH (22:00)
[2017-05-01] MEDS: Sodium Chloride 0.9% 1,000 ML IV SCH (04:50)
[2017-05-01 06:09] LABS: HEMATOCRIT 30.6 % (34.0-47.0); MEAN CELL VOLUME 91.8 fl (81.0-99.0); MEAN CORPUSCULAR HEMOGLOBIN 30.3 pg (27.0-31.0); RED CELL DISTRIBUTION WIDTH 14.1 % (11.5-14.5); WHITE BLOOD COUNT 4.4 K/uL (4.8-10.8)
[2017-05-01 06:20] LABS: BLOOD UREA NITROGEN 11 mg/dl (7-17); CALCIUM 7.7 mg/dL (8.4-10.2); CARBON DIOXIDE 24 mmol/L (22-30); CHLORIDE 107 mmol/L (98-107); GFR AFRICAN-AMERICAN > 60; GLUCOSE,RANDOM 88 mg/dL (65-105); POTASSIUM 3.4 MMOL/L (3.6-5.0); SODIUM 142 mmol/l (132-148)
[2017-05-01] MEDS: Insulin Lispro (humaLOG) 100 Units/ml Inj SC SCH ×2 (06:30→08:14)
[2017-05-01] MEDS: Pantoprazole 40 mg EC Tab PO SCH (08:12)
[2017-05-01] MEDS: Potassium & Sodium Phosphate PO SCH (08:12)
[2017-05-01 08:45] VITALS: BP 122/56; PULSE 90; RESP 14; TEMP 98.3
--- NOTE | 2017-05-01 14:11 | PN ---
ENDOCRINOLOGY FOLLOWUP NOTE DATE: LOCATION: Room 426 ICU. SUBJECTIVE: This is a 26-year-old female with recent uncontrolled type 1 insulin-dependent diabetes, presenting here with diabetic ketoacidosis and dehydration and has since then improved clinically and metabolically as noted thereof. Her oral intake has been quite variable as noted and overnight and inventory associate hypoglycemia with the glucose level of 32 mg/dL. The latest glucose value today is 91 mg/dL. Her latest chemistry showed a BUN of 11, sodium 142, potassium 3.4, chloride 107, CO2 of 24, glucose 88 and creatinine 0.6. So, at this time, we will recommend for eventual discharge and modify basal and bolus insulin regimen as given with Levemir to be given as 40 units subcu at bedtime daily to start tonight. We will also continue the Humalog at the higher dose of 80 units subcu t.i.d. before meals as ordered. We will titrate incremental as indicated to optimize metabolic control. I actually called in the [employer] pump specialist, Suzannamohit Colby regarding the urgent need to expedite the availability of her [employer] insulin pump, which will hopefully optimize and improve her glycemic profile and prevent future hospital readmissions. However, the patient has also been extremely poorly adherent to her day-to-day glucose testing and insulin administration as recommended and prescribed. A lengthy bedside discussion was undertaken with the patient regarding the imperative need to really optimize her metabolic control to forestall and delay the potential microvascular complications of retinopathy, polyneuropathy and nephropathy as mentioned. We will follow and advise accordingly. Monet Gallego MD
--- NOTE | 2017-05-01 14:23 | PN ---
DATE: 05/01/2017 SUBJECTIVE: The patient is seen and examined. Interim events noted. Consults noted and appreciated. Accounting Technician and Endocrinology followup and intervention noted and appreciated. The patient remains in intensive care unit, awaiting for a telemetry bed. The patient is sleepy, arousable, feels okay. Denies any medical complaints. No chest pain. No shortness of breath. PHYSICAL EXAMINATION GENERAL: The patient is in no acute distress. VITAL SIGNS: Stable. HEART: S1 and S2, normal and regular. LUNGS: Good bilateral air exchange. ABDOMEN: Soft and nontender. EXTREMITIES: No edema. No calf swelling. No tenderness. No acute ischemia. CENTRAL NERVOUS SYSTEM: Essentially unchanged. DIAGNOSTIC DATA: Available diagnostic data reviewed. The patient had an episode of hypoglycemia and the patient was asymptomatic and refused to take D50, but it came up after orange juice. Bicarb is 24. Anion gap is resolved. ASSESSMENT AND PLAN: Overall, the patient is clinically stable and improved. Plan as ordered. Carlos Roy MD
[2017-05-02 09:34] VITALS: O2SAT 100
== END 2017-05-01 09:50 | disposition home or self-care (01) | DRG 295 ==
LOC: H.ER 16:59 → H.ERHOLD 19:43 → H.ICU/CCU 21:51
PROVIDERS: ADMIT Internal Medicine; ATTEND Internal Medicine
DX: E10.10 Type 1 diabetes mellitus with ketoacidosis without coma (principal); E10.649 Type 1 diabetes mellitus with hypoglycemia without coma; E86.0 Dehydration; E87.5 Hyperkalemia; Z91.018 Allergy to other foods; Z79.4 Long term (current) use of insulin; F17.200 Nicotine dependence, unspecified, uncomplicated

== ENCOUNTER 2017-06-14 15:10 | Emergency (ER) | payer OTHER ==
[2017-06-14 15:10] VITALS: BMI 23.0
[2017-06-14 16:09] VITALS: BP 118/76; PULSE 101; RESP 16; TEMP 98.2; O2SAT 97
[2017-06-14] MEDS ORDERED: Sodium Chloride 0.9% 1,000 ML IV STA ×2 (16:16→17:21)
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
[2017-06-14 17:03] LABS: VENOUS BLOOD GAS BASE EXCESS 1.2 mmol/L (0.0-2.0); VENOUS BLOOD GAS PCO2 47 mmHg (40-60); VENOUS BLOOD PH 7.37 (7.32-7.43)
[2017-06-14 17:03] LABS: BASO # 0.1 K/uL (0.0-0.2); BASO % 0.8 % (0.0-2.0); EOS # 0.1 K/uL (0.0-0.7); EOS % 1.3 % (0.0-4.0); HEMATOCRIT 44.5 % (34.0-47.0); LYMPH # 1.7 K/uL (1.0-4.3); LYMPH % 18.4 % (20.0-40.0); MEAN CORPUSCULAR HEMOGLOBIN 29.4 pg (27.0-31.0); MEAN CORPUSCULAR HGB CONC 33.4 g/dL (33.0-37.0); MONO # 0.4 K/uL (0.0-0.8); MONO % 3.9 % (0.0-10.0); NEUT # 7.1 K/uL (1.8-7.0); NEUT % 75.6 % (50.0-75.0); NRBC % 0.1 % (0.0-0.0); RED CELL DISTRIBUTION WIDTH 13.3 % (11.5-14.5); WHITE BLOOD COUNT 9.5 K/uL (4.8-10.8)
[2017-06-14 17:33] LABS: CALCIUM 9.4 mg/dL (8.4-10.2); CARBON DIOXIDE 26 mmol/L (22-30); CHLORIDE 98 mmol/L (98-107); GFR AFRICAN-AMERICAN > 60
[2017-06-14 17:35] LABS: BLOOD UREA NITROGEN 17 mg/dl (7-17); LIPASE 92 U/L (23-300); POTASSIUM 4.9 MMOL/L (3.6-5.0); SODIUM 135 mmol/l (132-148)
[2017-06-14 18:10] LABS: GLUCOSE,RANDOM 410 mg/dL (65-105)
[2017-06-14] MEDS ORDERED: Insulin Regular 100 units/ml IVP ONE (19:00)
--- NOTE | 2017-06-15 10:52 | CARD ---
APPROVED REPORT EKG Measurement Heart [id number] <Conclusion> Normal sinus rhythm Possible Left atrial enlargement Nonspecific ST abnormality Abnormal ECG
== END 2017-06-14 21:15 | disposition left against medical advice (07) ==
LOC: H.ER 15:10
DX: K29.70 Gastritis, unspecified, without bleeding (principal); E11.65 Type 2 diabetes mellitus with hyperglycemia; Z79.4 Long term (current) use of insulin
CPT/HCPCS: 80048; 81025; 82803; 82948; 83690; 85025; 93005; 96374; 96375; 99285; J2405; J7040

== ENCOUNTER 2017-08-15 11:00 | Emergency (ER) | payer OTHER ==
[2017-08-15 11:00] VITALS: BMI 23.0
[2017-08-15 11:09] VITALS: BP 111/72; PULSE 100; RESP 16; TEMP 97.8; O2SAT 100
[2017-08-15] MEDS ORDERED: Sodium Chloride 0.9% 1,000 ML IV STA (11:18)
[2017-08-15 11:41] LABS: BASO # 0.1 K/uL (0.0-0.2); BASO % 0.9 % (0.0-2.0); EOS # 0.2 K/uL (0.0-0.7); EOS % 1.9 % (0.0-4.0); LYMPH # 1.8 K/uL (1.0-4.3); MEAN CELL VOLUME 83.9 fl (81.0-99.0); MEAN CORPUSCULAR HGB CONC 32.2 g/dL (33.0-37.0); MEAN PLATELET VOLUME 6.5 fl (7.2-11.7); MONO # 0.4 K/uL (0.0-0.8); MONO % 4.9 % (0.0-10.0); NEUT # 5.9 K/uL (1.8-7.0); NEUT % 71.3 % (50.0-75.0); NRBC % 0.1 % (0.0-0.0); RBC 4.8 Mil/uL (3.80-5.20); RED CELL DISTRIBUTION WIDTH 14.6 % (11.5-14.5); WHITE BLOOD COUNT 8.3 K/uL (4.8-10.8)
--- NOTE | 2017-08-15 11:41 | ED PDOC ---
HPI: General Adult Time Seen by Provider: 08/15/17 11:08 Chief Complaint (Nursing): Flu-like Symptoms Chief Complaint (Provider): Flu Symptoms/Possible DKA History Per: Patient History/Exam Limitations: no limitations Onset/Duration Of Symptoms: Days (x2) Current Symptoms Are (Timing): Still Present Additional Complaint(s): Concepcion Zuniga is a 26 year old female with a history of type 1 DM that presents to the ED with a chief complaint of flu-like symptoms and possible DKA. Patient reports that her son was brought to the ED a few days ago, at which point she sat in the waiting room for a few hours and was exposed to many people. She reports that she began to have upper respiratory symptoms and burning dysuria since then. She additionally feels as though she may be in DKA, the last episode of which occurred 2 weeks ago, after she states she worked a very long shift and neglected to check her sugar. Past Medical History Reviewed: Historical Data, Nursing Documentation, Vital Signs Vital Signs: Last Vital Signs Temp 97.8 F 08/15/17 11:04 Pulse 100 H 08/15/17 11:04 Resp 16 08/15/17 11:04 BP 111/72 08/15/17 11:04 Pulse Ox 100 08/15/17 11:43 - Medical History PMH: Bronchitis, Diabetes (type 1) Denies: Anxiety, Bipolar Disorder, Depression, HIV, Paranoia, Post Traumatic Stress Disorder, Chronic Kidney Disease, Schizophrenia - Surgical History Surgical History: (x2) - Family History Family History: States: Unknown Family Hx - Social History Current smoker - smoking cessation education provided: Yes - Immunization History Hx Tetanus Toxoid Vaccination: No Hx Influenza Vaccination: No Hx Pneumococcal Vaccination: No - Home Medications Home Medications: Ambulatory Orders Medication Instructions Recorded Insulin Lispro [humALOG] 10 unit SC ASDIR 11/05/16 Insulin Lispro [humALOG] 20 - 30 unit SC ACTID 11/05/16 Ciprofloxacin HCl [Cipro] 250 mg PO BID #14 tab 08/15/17 - Allergies Allergies/Adverse Reactions: Allergies Allergy/AdvReac Type Severity Reaction Status Date / Time No Known Allergies Allergy Verified 06/14/17 16:05 Review of Systems Cardiovascular: Negative for: Chest Pain Respiratory: Positive for: Shortness of Breath (mild) Gastrointestinal: Negative for: Nausea, Vomiting Genitourinary Female: Positive for: Dysuria (burning) Physical Exam - Reviewed Nursing Documentation Reviewed: Yes Vital Signs Reviewed: Yes - Physical Exam Appears: Positive for: Non-toxic, No Acute Distress Head Exam: Positive for: ATRAUMATIC, NORMOCEPHALIC Skin: Positive for: Normal Color, Warm Eye Exam: Positive for: Normal appearance, EOMI, PERRL Cardiovascular/Chest: Positive for: Regular Rate, Rhythm. Negative for: Murmur Respiratory: Positive for: Normal Breath Sounds. Negative for: Wheezing Gastrointestinal/Abdominal: Positive for: Normal Exam, Soft. Negative for: Tenderness Back: Positive for: Normal Inspection. Negative for: L CVA Tenderness, R CVA Tenderness Extremity: Positive for: Normal ROM. Negative for: Tenderness, Swelling Neurologic/Psych: Positive for: Alert, Oriented. Negative for: Motor/Sensory Deficits - Laboratory Results Result Diagrams: 08/15/17 11:30 08/15/17 11:30 - ECG O2 Sat by Pulse Oximetry: 100 (RA) Pulse Ox Interpretation: Normal Medical Decision Making Medical Decision Making: Impression: Flu-Like Symptoms/Possible DKA Plan: * CMP * CBC * Lipase * Urine Dip * Urine Preg * Urine Culture * Urinalysis * NaCl 1000 mLs at 1000 mLs/hr * Reevaluation Scribe Attestation: Documented by Leah Donahue, acting as a scribe for Simi Rosenberg MD. Provider Scribe Attestation: All medical record entries made by the Scribe were at my direction and personally dictated by me. I have reviewed the chart and agree that the record accurately reflects my personal performance of the history, physical exam, medical decision making, and the department course for this patient. I have also personally directed, reviewed, and agree with the discharge instructions and disposition. 2.15p - feeling better. relieved to know that she does not have the flu. Disposition - Clinical Impression Clinical Impression: UTI (urinary tract infection) - Patient ED Disposition Is Patient to be Admitted: No Doctor Will See Patient In The: Office Counseled Patient/Family Regarding: Diagnosis, Need For Followup, Rx Given - Disposition Disposition: Routine/Home Disposition Time: 14:10 Condition: IMPROVED Prescriptions: Ciprofloxacin HCl [Cipro] 250 mg PO BID #14 tab Instructions: Urinary Tract Infection in Women (ED) Forms: [facility] (Mauritanian) - POA Present On Arrival: None
[2017-08-15 11:51] LABS: ALB/GLOB RATIO 1.3 (1.0-2.1); ALBUMIN 4.6 g/dL (3.5-5.0); ALT/SGPT 42 U/L (9-52); AST/SGOT 38 U/L (14-36); BLOOD UREA NITROGEN 16 mg/dl (7-17); CALCIUM 9.4 mg/dL (8.4-10.2); GFR AFRICAN-AMERICAN > 60; GFR NON-AFRICAN AMERICAN > 60; LIPASE 78 U/L (23-300)
[2017-08-15 12:12] LABS: SQUAMOUS EPITHIAL 33 /hpf (0-5); URINE BACTERIA OCC (<OCC); URINE BILIRUBIN SMALL (NEGATIVE); URINE BLOOD NEGATIVE (NEGATIVE); URINE CLARITY TURBID (Clear); URINE COLOR AMBER (YELLOW); URINE GLUCOSE (UA) >=500 mg/dL (Normal); URINE HYALINE CAST >20 /hpf (0-2); URINE LEUKOCYTE ESTERASE LARGE Leu/uL (Negative); URINE NITRATE NEGATIVE (NEGATIVE); URINE PROTEIN 100 mg/dL (NEGATIVE)
[2017-08-15 14:15] LABS: VENOUS BLOOD GAS BASE EXCESS -1.4 mmol/L (0.0-2.0); VENOUS BLOOD GAS PCO2 36 mmHg (40-60); VENOUS BLOOD GAS PO2 51 mm/Hg (30-55); VENOUS BLOOD PH 7.41 (7.32-7.43)
== END 2017-08-15 19:13 | disposition home or self-care (01) ==
LOC: H.ER 11:00
DX: N39.0 Urinary tract infection, site not specified (principal); E11.10 Type 2 diabetes mellitus with ketoacidosis without coma; F17.200 Nicotine dependence, unspecified, uncomplicated; Z79.4 Long term (current) use of insulin
CPT/HCPCS: 80053; 81003; 81025; 82803; 82948; 83690; 85025; 87086; 87181; 87804; 96360; 99283; J7040

== ENCOUNTER 2017-08-18 22:38 | Observation (INO) | payer OTHER ==
[2017-08-18 22:38] VITALS: BMI 23.0
[2017-08-19] MEDS ORDERED: Sodium Chloride 0.9% 1,000 ML IV STA ×2 (01:43→02:57)
[2017-08-19 02:13] LABS: HEMOGLOBIN 11.8 g/dL (12.0-16.0); MEAN CELL VOLUME 83.5 fl (81.0-99.0); MEAN CORPUSCULAR HEMOGLOBIN 26.7 pg (27.0-31.0); RBC 4.4 Mil/uL (3.80-5.20); RED CELL DISTRIBUTION WIDTH 14.9 % (11.5-14.5); WHITE BLOOD COUNT 6.5 K/uL (4.8-10.8)
[2017-08-19 02:17] LABS: VENOUS BLOOD GAS BASE EXCESS -4.8 mmol/L (0.0-2.0); VENOUS BLOOD GAS PCO2 41 mmHg (40-60); VENOUS BLOOD GAS PO2 27 mm/Hg (30-55); VENOUS BLOOD PH 7.32 (7.32-7.43)
[2017-08-19 02:42] LABS: BLOOD UREA NITROGEN 10 mg/dl (7-17); CALCIUM 9.6 mg/dL (8.4-10.2); GFR AFRICAN-AMERICAN > 60; GFR NON-AFRICAN AMERICAN > 60
[2017-08-19 02:53] LABS: URINE CLARITY SLIGHT-CLOUDY (Clear); URINE COLOR YELLOW (YELLOW)
[2017-08-19 02:54] LABS: URINE BILIRUBIN NEGATIVE (NEGATIVE); URINE BLOOD NEGATIVE (NEGATIVE); URINE GLUCOSE (UA) >=500 mg/dL (Normal)
[2017-08-19 02:55] LABS: SQUAMOUS EPITHIAL 1 /hpf (0-5); URINE CALCIUM OXALATE CRYSTALS FEW /hpf (<OCC); URINE LEUKOCYTE ESTERASE TRACE Leu/uL (Negative); URINE NITRATE NEGATIVE (NEGATIVE); URINE PROTEIN 30 mg/dL (NEGATIVE); URINE UROBILINOGEN 0.2 mg/dL (0.2-1.0)
[2017-08-19] MEDS ORDERED: Insulin Regular 100 units/ml SC STA (02:55)
[2017-08-19] MEDS ORDERED: Insulin Regular 100 units/ml ONE (03:27)
[2017-08-19] MEDS ORDERED: Potassium CL 10 MEQ/50 ML 50 ML ONE (03:28)
[2017-08-19] MEDS: Potassium CL 10 MEQ/50 ML 50 ML IVPB SCH ×2 (03:34→04:45)
--- NOTE | 2017-08-19 03:54 | ED PDOC ---
Hyperglycemia/Hypoglycemia Time Seen by Provider: 08/19/17 01:34 Chief Complaint (Nursing): High Blood Sugar Chief Complaint (Provider): High Blood Sugar History Per: Patient History/Exam Limitations: no limitations Onset/Duration Of Symptoms: Days (x 1) Current Symptoms Are (Timing): Still Present Current Diabetic Medications: Insulin : The patient does not have any of the infectious symptoms listed except for those marked. Additional Complaint(s): 26 year old chauncey with a history of insulin dependent diabetes presents to the ED complaining of polyuria, polydipsia, fatigue and vomiting, onset earlier today. Patient reports her blood sugar levels have been in the mid 100s all day. Feels like she is in DKA. Denies abdominal pain and fever. PMD: Dr. Monet Gallego MD Past Medical History Reviewed: Historical Data, Nursing Documentation, Vital Signs Vital Signs: Last Vital Signs Temp 98.5 F 08/18/17 23:32 Pulse 95 H 08/18/17 23:32 Resp 16 08/18/17 23:32 BP 136/84 08/18/17 23:32 Pulse Ox 98 08/18/17 23:32 - Medical History PMH: Bronchitis, Diabetes (type 1) Denies: Anxiety, Bipolar Disorder, Depression, HIV, Paranoia, Post Traumatic Stress Disorder, Chronic Kidney Disease, Schizophrenia - Surgical History Surgical History: (x2) - Family History Family History: States: Unknown Family Hx - Immunization History Hx Tetanus Toxoid Vaccination: No Hx Influenza Vaccination: No Hx Pneumococcal Vaccination: No - Home Medications Home Medications: Ambulatory Orders Medication Instructions Recorded Insulin Lispro [humALOG] 10 unit SC ASDIR 11/05/16 Insulin Lispro [humALOG] 20 - 30 unit SC ACTID 11/05/16 Ciprofloxacin HCl [Cipro] 250 mg PO BID #14 tab 08/15/17 - Allergies Allergies/Adverse Reactions: Allergies Allergy/AdvReac Type Severity Reaction Status Date / Time No Known Allergies Allergy Verified 06/14/17 16:05 Review of Systems ROS Statement: Except As Marked, All Systems Reviewed And Found Negative Constitutional: Positive for: Other (polydipsia and fatigue ). Negative for: Fever Gastrointestinal: Positive for: Vomiting. Negative for: Abdominal Pain Genitourinary Female: Positive for: Frequency Physical Exam - Reviewed Nursing Documentation Reviewed: Yes Vital Signs Reviewed: Yes - Physical Exam Appears: Positive for: Non-toxic, No Acute Distress Head Exam: Positive for: ATRAUMATIC, NORMOCEPHALIC Skin: Positive for: Normal Color, Warm, Dry Eye Exam: Positive for: EOMI, Normal appearance, PERRL Neck: Positive for: Normal, Painless ROM, Supple Cardiovascular/Chest: Positive for: Regular Rate, Rhythm. Negative for: Murmur Respiratory: Positive for: Normal Breath Sounds. Negative for: Respiratory Distress Gastrointestinal/Abdominal: Positive for: Normal Exam, Soft Back: Positive for: Normal Inspection Extremity: Positive for: Normal ROM. Negative for: Deformity Neurologic/Psych: Positive for: Alert, Oriented. Negative for: Motor/Sensory Deficits - Laboratory Results Result Diagrams: 08/19/17 02:11 08/19/17 02:11 - ECG O2 Sat by Pulse Oximetry: 98 (RA) Pulse Ox Interpretation: Normal Medical Decision Making Medical Decision Making: Time: 01:43 Impression: Initial Plan: --VBG --BMP --Urine preg --Urine dip --Human Insulin 10 units SC --Potassium CL 50 ml IVPB --Normal Saline IV 1,000 mls/hr --Zofran Inj 4 mg IVP --Urinalysis Patient is profoundly dehydrated with low potassium levels. Will be admitted to inpatient to the service of Dr. Fung due to hyperglycemia, dehydration, lactic acidosis and hypokalemia. Scribe Attestation: Documented by Vianey Yu, acting as a scribe for Farhat Lester MD. Provider Scribe Attestation: All medical record entries made by the Scribe were at my direction and personally dictated by me. I have reviewed the chart and agree that the record accurately reflects my personal performance of the history, physical exam, medical decision making, and the department course for this patient. I have also personally directed, reviewed, and agree with the discharge instructions and disposition. Disposition - Clinical Impression Clinical Impression: Hyperglycemia, Hypokalemia, Dehydration, Lactic acidosis - Patient ED Disposition Is Patient to be Admitted: Yes - Disposition Disposition Time: 03:20 Condition: STABLE Patient Signed Over To: Latesha Fung - Pt Status Changed To: Hospital Disposition Of: Observation
[2017-08-19 05:39] VITALS: RESP 18; TEMP 99.6; O2SAT 98
[2017-08-19 06:14] LABS: VENOUS BLOOD GAS BASE EXCESS -0.8 mmol/L (0.0-2.0); VENOUS BLOOD GAS PCO2 44 mmHg (40-60); VENOUS BLOOD GAS PO2 51 mm/Hg (30-55); VENOUS BLOOD PH 7.36 (7.32-7.43)
[2017-08-19] MEDS ORDERED: Sodium Chloride 0.9% 1,000 ML IV SCH (08:00)
[2017-08-19 09:01] VITALS: BP 125/73; PULSE 76
[2017-08-19] MEDS ORDERED: Insulin Regular 100 units/ml SC SCH (11:30)
--- NOTE | 2017-08-19 11:53 | CP.PCM.HP ---
History of Present Illness - History of Present Illness History of Present Illness: Admitted overnight for Hypyerglycemia and Dehydration, and high Lactic Acidemia , and signed out AMA by ER Attending before I was able to see and examine the Patient. Present on Admission - Present on Admission Any Indicators Present on Admission: Yes History of Uncontrolled Diabetes: Yes Past Patient History - Infectious Disease Hx of Infectious Diseases: None - Tetanus Immunizations Tetanus Immunization: Unknown - Past Medical History & Family History Past Medical History?: Yes - Past Social History Smoking Status: Light Smoker < 10 Cigarettes Daily - CARDIAC Hx Cardiac Disorders: No - PULMONARY Hx Bronchitis: Yes - NEUROLOGICAL Hx Neurological Disorder: No - HEENT Hx HEENT Problems: No - RENAL Hx Chronic Kidney Disease: No - ENDOCRINE/METABOLIC Hx Endocrine Disorders: Yes Hx Diabetes Mellitus Type 1: Yes - HEMATOLOGICAL/ONCOLOGICAL Hx Human Immunodeficiency Virus (HIV): No - INTEGUMENTARY Hx Dermatological Problems: No - MUSCULOSKELETAL/RHEUMATOLOGICAL Hx Falls: No - GASTROINTESTINAL Hx Gastrointestinal Disorders: No - GENITOURINARY/GYNECOLOGICAL Hx Genitourinary Disorders: No - PSYCHIATRIC Hx Anxiety: No Hx Bipolar Disorder: No Hx Depression: No Hx Paranoia: No Hx Post Traumatic Stress Disorder: No Hx Schizophrenia: No - SURGICAL HISTORY Hx Surgeries: Yes Hx Section: Yes (x2) Other/Comment: rt thigh abcess I&D (2006) / insulin pump - ANESTHESIA Hx Anesthesia: Yes Hx Anesthesia Reactions: No Hx Malignant Hyperthermia: No Meds Allergies/Adverse Reactions: Allergies Allergy/AdvReac Type Severity Reaction Status Date / Time No Known Allergies Allergy Verified 06/14/17 16:05 Results - Vital Signs Recent Vital Signs: Last Vital Signs Temp 99.6 F 08/19/17 05:22 Pulse 76 08/19/17 09:01 Resp 18 08/19/17 09:01 BP 125/73 08/19/17 09:01 Pulse Ox 98 08/19/17 09:01 - Labs Result Diagrams: 08/19/17 02:11 08/19/17 02:11 Labs: Laboratory Results - last 24 hr 08/19/17 08/19/17 08/19/17 02:11 02:11 02:13 WBC 6.5 RBC 4.40 Hgb 11.8 L Hct 36.8 MCV 83.5 MCH 26.7 L MCHC 32.0 L RDW 14.9 H Plt Count 369 pO2 27 L VBG pH 7.32 VBG pCO2 41 VBG HCO3 19.7 VBG Total CO2 22.4 VBG O2 Sat (Calc) 60.2 VBG Base Excess -4.8 L VBG Potassium 2.9 L Glucose 324 H Lactate 4.1 H* FiO2 21.0 Crit Value Called To Tayler leonard md Crit Value Called By 333 Crit Value Read Back Y Blood Gas Notified Time 217 Sodium 139 137.0 Potassium 3.0 L Chloride 101 100.0 Carbon Dioxide 21 L Anion Gap 20 BUN 10 Creatinine 0.6 L Est GFR ( Amer) > 60 Est GFR (Non-Af Amer) > 60 POC Glucose (mg/dL) Random Glucose 331 H Calcium 9.6 Venous Blood Potassium 2.9 L Urine Color Urine Clarity Urine pH Ur Specific [place] Urine Protein Urine Glucose (UA) Urine Ketones Urine Blood Urine Nitrate Urine Bilirubin Urine Urobilinogen Ur Leukocyte Esterase Urine RBC (Auto) Urine Microscopic WBC Ur Squamous Epith Cells Calcium Oxalate Crystal 08/19/17 08/19/17 08/19/17 02:14 06:11 06:21 WBC RBC Hgb Hct MCV MCH MCHC RDW Plt Count pO2 51 VBG pH 7.36 VBG pCO2 44 VBG HCO3 23.9 VBG Total CO2 26.3 VBG O2 Sat (Calc) 93.6 H VBG Base Excess -0.8 L VBG Potassium 4.4 Glucose 56 L Lactate 2.3 H FiO2 21.0 Crit Value Called To Crit Value Called By Crit Value Read Back Blood Gas Notified Time Sodium 139.0 Potassium Chloride 110.0 H Carbon Dioxide Anion Gap BUN Creatinine Est GFR ( Amer) Est GFR (Non-Af Amer) POC Glucose (mg/dL) 43 L Random Glucose Calcium Venous Blood Potassium 4.4 Urine Color Yellow Urine Clarity Slight-cloudy Urine pH 5.0 Ur Specific [place] 1.023 Urine Protein 30 Urine Glucose (UA) >=500 Urine Ketones 80 Urine Blood Negative Urine Nitrate Negative Urine Bilirubin Negative Urine Urobilinogen 0.2 Ur Leukocyte Esterase Trace Urine RBC (Auto) 3 Urine Microscopic WBC 2 Ur Squamous Epith Cells 1 Calcium Oxalate Crystal Few H 08/19/17 07:25 WBC RBC Hgb Hct MCV MCH MCHC RDW Plt Count pO2 VBG pH VBG pCO2 VBG HCO3 VBG Total CO2 VBG O2 Sat (Calc) VBG Base Excess VBG Potassium Glucose Lactate FiO2 Crit Value Called To Crit Value Called By Crit Value Read Back Blood Gas Notified Time Sodium Potassium Chloride Carbon Dioxide Anion Gap BUN Creatinine Est GFR ( Amer) Est GFR (Non-Af Amer) POC Glucose (mg/dL) 156 H Random Glucose Calcium Venous Blood Potassium Urine Color Urine Clarity Urine pH Ur Specific [place] Urine Protein Urine Glucose (UA) Urine Ketones Urine Blood Urine Nitrate Urine Bilirubin Urine Urobilinogen Ur Leukocyte Esterase Urine RBC (Auto) Urine Microscopic WBC Ur Squamous Epith Cells Calcium Oxalate Crystal Assessment & Plan (1) Diabetes mellitus Status: Acute (2) Dehydration Status: Acute (3) Hyperglycemia Status: Acute (4) Lactic acidosis Status: Acute
== END 2017-08-19 10:32 | disposition left against medical advice (07) ==
LOC: H.ER 22:38 → H.ERHOLD 08-19 03:20
PROVIDERS: ADMIT Internal Medicine; ATTEND Internal Medicine
DX: E10.65 Type 1 diabetes mellitus with hyperglycemia (principal); E86.0 Dehydration; E87.6 Hypokalemia; F17.210 Nicotine dependence, cigarettes, uncomplicated; Z79.4 Long term (current) use of insulin
CPT/HCPCS: 80048; 81003; 82803; 82948; 85027; 96374; 99285; G0378; J2405; J3480; J7040

== ENCOUNTER 2017-09-29 23:29 | Emergency (ER) | payer OTHER ==
[2017-09-29 23:29] VITALS: BMI 23.0
[2017-09-29 23:35] VITALS: O2SAT 100
[2017-09-30] MEDS ORDERED: Sodium Chloride 0.9% 1,000 ML IV STA ×2 (00:54→02:35)
--- NOTE | 2017-09-30 01:34 | ED PDOC ---
HPI:Nausea, Vomiting, Diarrhea Time Seen by Provider: 09/30/17 00:39 Chief Complaint (Nursing): GI Problem Chief Complaint (Provider): Vomiting History Per: Patient History/Exam Limitations: no limitations Onset/Duration Of Symptoms: Hrs (4 hours ago) Current Symptoms Are (Timing): Still Present Additional Complaint(s): 26 yo female with a history of insulin dependent diabetes, presents to the ED complaining of 4 episodes of non-billious, non-bloody vomiting, onset of 4 hours ago. Patient also reports of being weak and tired all day, but denies any diarrhea or abdominal pain. Of note, patient attended a earlier today. pcp: Monet Gallego Past Medical History Reviewed: Historical Data, Nursing Documentation, Vital Signs Vital Signs: Last Vital Signs Temp 97.4 F L 09/29/17 23:32 Pulse 115 H 09/29/17 23:32 Resp 18 09/29/17 23:32 BP 128/86 09/29/17 23:32 Pulse Ox 100 09/29/17 23:32 - Medical History PMH: Bronchitis, Diabetes (type 1) Denies: Anxiety, Bipolar Disorder, Depression, HIV, Paranoia, Post Traumatic Stress Disorder, Chronic Kidney Disease, Schizophrenia - Surgical History Surgical History: (x2) - Family History Family History: States: Unknown Family Hx - Living Arrangements Living Arrangements: With Family - Social History Current smoker - smoking cessation education provided: Yes (light, <10 cigarettes daily) Ex-Smoker (has not smoked in the last 12 months): No Alcohol: None Drugs: Denies - Immunization History Hx Tetanus Toxoid Vaccination: No Hx Influenza Vaccination: No Hx Pneumococcal Vaccination: No - Home Medications Home Medications: Ambulatory Orders Medication Instructions Recorded Insulin Lispro [humALOG] 20 - 30 unit SC ACTID 11/05/16 Ciprofloxacin HCl [Cipro] 250 mg PO BID #14 tab 08/15/17 Ondansetron [Zofran] 4 mg PO Q8H #12 tab 09/30/17 - Allergies Allergies/Adverse Reactions: Allergies Allergy/AdvReac Type Severity Reaction Status Date / Time No Known Allergies Allergy Verified 09/29/17 23:32 Review of Systems ROS Statement: Except As Marked, All Systems Reviewed And Found Negative Constitutional: Negative for: Fever Gastrointestinal: Positive for: Nausea, Vomiting (non-billious). Negative for: Abdominal Pain, Diarrhea, Hematemesis Physical Exam - Reviewed Nursing Documentation Reviewed: Yes Vital Signs Reviewed: Yes - Physical Exam Appears: Positive for: Well, Non-toxic, No Acute Distress Head Exam: Positive for: ATRAUMATIC, NORMAL INSPECTION, NORMOCEPHALIC Skin: Positive for: Normal Color, Warm, DRY Eye Exam: Positive for: EOMI, Normal appearance, PERRL ENT: Positive for: Normal ENT Inspection Neck: Positive for: Normal, Painless ROM Cardiovascular/Chest: Positive for: Regular Rate, Rhythm. Negative for: Murmur Respiratory: Positive for: Normal Breath Sounds. Negative for: Respiratory Distress Gastrointestinal/Abdominal: Positive for: Normal Exam, Soft. Negative for: Tenderness Back: Positive for: Normal Inspection Extremity: Positive for: Normal ROM. Negative for: Pedal Edema, Deformity Neurologic/Psych: Positive for: Alert, Oriented. Negative for: Motor/Sensory Deficits - Laboratory Results Result Diagrams: 09/30/17 01:47 09/30/17 01:47 - ECG O2 Sat by Pulse Oximetry: 100 (RA) Pulse Ox Interpretation: Normal Medical Decision Making Medical Decision Making: Time: --00:54 Impression: --Vomiting, rule out Diabetic Ketoacidosis Plan: -- venous blood gas --labs --ed urine dip --ed urine preg --IV fluids 1000mls/hr --Zofran 4mg IVP --Urinalysis Reassess --01:35 Will reevaluate after administering medication and PO challenge. 7:00 Lactate negative, vitals improved, patient tolerating PO, states she's feeling much better. Will d/c home w/ Rx for zofran. Scribe Attestation: Documented by Larry Hood acting as a scribe for Farhat Lester MD. Provider Attestation: All medical record entries made by the Scribe were at my direction and personally dictated by me. I have reviewed the chart and agree that the record accurately reflects my personal performance of the history, physical exam, medical decision making, and the department course for this patient. I have also personally directed, reviewed, and agree with the discharge instructions and disposition. Disposition - Clinical Impression Clinical Impression: Vomiting, Dehydration - Patient ED Disposition Is Patient to be Admitted: No - Disposition Referrals: Monet Gallego MD [Medical Doctor] - Disposition: Routine/Home Disposition Time: 07:05 Condition: IMPROVED Prescriptions: Ondansetron [Zofran] 4 mg PO Q8H #12 tab Instructions: Dehydration, Adult (DC), Nausea and Vomiting, Adult (DC) Forms: [facility] ([place]an)
[2017-09-30 01:49] LABS: HEMOGLOBIN 13.2 g/dL (12.0-16.0); MEAN CELL VOLUME 85.1 fl (81.0-99.0); MEAN CORPUSCULAR HEMOGLOBIN 27.9 pg (27.0-31.0); MEAN CORPUSCULAR HGB CONC 32.8 g/dL (33.0-37.0); RBC 4.72 Mil/uL (3.80-5.20); RED CELL DISTRIBUTION WIDTH 15.8 % (11.5-14.5); WHITE BLOOD COUNT 8.9 K/uL (4.8-10.8)
[2017-09-30 01:58] LABS: BLOOD UREA NITROGEN 13 mg/dl (7-17); CALCIUM 9.8 mg/dL (8.4-10.2); GFR AFRICAN-AMERICAN > 60; GFR NON-AFRICAN AMERICAN > 60
[2017-09-30 02:01] LABS: VENOUS BLOOD GAS BASE EXCESS -7.9 mmol/L (0.0-2.0); VENOUS BLOOD GAS PCO2 36 mmHg (40-60); VENOUS BLOOD GAS PO2 32 mm/Hg (30-55)
[2017-09-30 07:23] VITALS: BP 106/65; PULSE 100; RESP 15; TEMP 98.3
== END 2017-09-30 07:44 | disposition home or self-care (01) ==
LOC: H.ER 23:29
DX: R11.10 Vomiting, unspecified (principal); E86.0 Dehydration; E11.9 Type 2 diabetes mellitus without complications; Z79.4 Long term (current) use of insulin; F17.210 Nicotine dependence, cigarettes, uncomplicated
CPT/HCPCS: 80048; 82803; 83605; 85027; 96374; 99283; J2405; J7040

== ENCOUNTER 2017-10-28 00:46 | Inpatient (IN) | payer OTHER ==
[2017-10-28 00:53] VITALS: BMI 23.9
[2017-10-28] MEDS ORDERED: Sodium Chloride 0.9% 2,000 ML IV STA (01:08)
[2017-10-28 01:39] LABS: BASO # 0.1 K/uL (0.0-0.2); EOS # 0.1 K/uL (0.0-0.7); EOS % 1.6 % (0.0-4.0); LYMPH # 1.6 K/uL (1.0-4.3); LYMPH % 23.3 % (20.0-40.0); MEAN CELL VOLUME 91.6 fl (81.0-99.0); MEAN CORPUSCULAR HEMOGLOBIN 27.8 pg (27.0-31.0); MEAN CORPUSCULAR HGB CONC 30.3 g/dL (33.0-37.0); MEAN PLATELET VOLUME 7.7 fl (7.2-11.7); MONO # 0.3 K/uL (0.0-0.8); MONO % 4.5 % (0.0-10.0); NEUT # 4.9 K/uL (1.8-7.0); NEUT % 69.6 % (50.0-75.0); RBC 4.68 Mil/uL (3.80-5.20); RED CELL DISTRIBUTION WIDTH 15.9 % (11.5-14.5); WHITE BLOOD COUNT 7.1 K/uL (4.8-10.8)
[2017-10-28 01:42] LABS: SQUAMOUS EPITHIAL 3 /hpf (0-5); URINE BILIRUBIN NEGATIVE (NEGATIVE); URINE BLOOD SMALL (NEGATIVE); URINE CLARITY SLIGHTY-CLOUDY (Clear); URINE COLOR COLORLESS (YELLOW); URINE GLUCOSE (UA) >=500 mg/dL (Normal); URINE LEUKOCYTE ESTERASE NEG Leu/uL (Negative); URINE PROTEIN NEGATIVE (NEGATIVE); URINE UROBILINOGEN 0.2-1.0 mg/dL (0.2-1.0)
--- NOTE | 2017-10-28 01:45 | ED PDOC ---
Hyperglycemia/Hypoglycemia Time Seen by Provider: 10/28/17 01:00 Chief Complaint (Nursing): High Blood Sugar Chief Complaint (Provider): hyperglycemia History Per: Patient History/Exam Limitations: no limitations Onset/Duration Of Symptoms: Days (3) Current Symptoms Are (Timing): Still Present : The patient does not have any of the infectious symptoms listed except for those marked. Additional Complaint(s): 26 yo female, brought in by EMS, with a history of Type I diabetes mellitus, currently taking Humalog, presents to the ED complaining of polyuria, polydipsia , believes that she is in DKA, and cough, onset of 3 days ago. Patient reports that she did not take any medications for her diabetes 3 days ago, but has been taking them ever since 3x a day. She denies fevers or chills. Of note, patient does smoke cigarettes. PCP: Monet Gallego Past Medical History Reviewed: Historical Data, Nursing Documentation, Vital Signs Vital Signs: Last Vital Signs Temp 97.5 F L 10/28/17 00:54 Pulse 102 H 10/28/17 00:54 Resp 22 10/28/17 00:54 BP 94/61 L 10/28/17 00:54 Pulse Ox 100 10/28/17 00:54 - Medical History PMH: Bronchitis, Diabetes (type 1) Denies: Anxiety, Bipolar Disorder, Depression, HIV, Paranoia, Post Traumatic Stress Disorder, Chronic Kidney Disease, Schizophrenia - Surgical History Surgical History: (x2) - Family History Family History: States: Unknown Family Hx - Social History Current smoker - smoking cessation education provided: Yes (light) Alcohol: None Drugs: Denies - Immunization History Hx Tetanus Toxoid Vaccination: No Hx Influenza Vaccination: No Hx Pneumococcal Vaccination: No - Home Medications Home Medications: Ambulatory Orders Medication Instructions Recorded Insulin Lispro [humALOG] 20 - 30 unit SC ACTID 11/05/16 - Allergies Allergies/Adverse Reactions: Allergies Allergy/AdvReac Type Severity Reaction Status Date / Time No Known Allergies Allergy Verified 10/28/17 00:53 Review of Systems ROS Statement: Except As Marked, All Systems Reviewed And Found Negative Constitutional: Negative for: Fever, Chills ENT: Positive for: Other (polydipsia) Respiratory: Positive for: Cough Genitourinary Female: Positive for: Other (polyuria) Physical Exam - Reviewed Nursing Documentation Reviewed: Yes Vital Signs Reviewed: Yes - Physical Exam Appears: Positive for: Well, Non-toxic, No Acute Distress Head Exam: Positive for: ATRAUMATIC, NORMAL INSPECTION, NORMOCEPHALIC Skin: Positive for: Normal Color, Warm, DRY Eye Exam: Positive for: EOMI, Normal appearance, PERRL ENT: Positive for: Normal ENT Inspection Neck: Positive for: Normal, Painless ROM Cardiovascular/Chest: Positive for: Regular Rate, Rhythm. Negative for: Murmur Respiratory: Positive for: Normal Breath Sounds. Negative for: Respiratory Distress Gastrointestinal/Abdominal: Positive for: Normal Exam, Soft. Negative for: Tenderness Back: Positive for: Normal Inspection Extremity: Positive for: Normal ROM. Negative for: Pedal Edema, Deformity Neurologic/Psych: Positive for: Alert, Oriented. Negative for: Motor/Sensory Deficits - Laboratory Results Result Diagrams: 10/28/17 01:26 10/28/17 01:26 - ECG O2 Sat by Pulse Oximetry: 100 (RA) - Critical Care Total Time (In Min): 60 Documented Critical Care: Time excludes all time spent performint seperately billable procedures Medical Decision Making Medical Decision Making: Time: --01:08 Impression: --history of diabetes presenting with polyuria, polydipsia, and hyperglycemia in setting of noncompliance with medicine Plan: --VBG --EKG --Labs -Ketone, Serum --magnesium --IV fluids Reassess --01:36 Patient is likely in DKA Will give fluids, check labs, and evaluate need for insulin drip --3:00 Patient improving on drip --4:00 FS 130s, insulin drip slowed, started D5 1/[address] Jj aware of patient for ICU, Dr. Roy aware. Scribe Attestation: Documented by Larry Hood acting as a scribe for Farhat Lester MD. Provider Attestation: All medical record entries made by the Scribe were at my direction and personally dictated by me. I have reviewed the chart and agree that the record accurately reflects my personal performance of the history, physical exam, medical decision making, and the department course for this patient. I have also personally directed, reviewed, and agree with the discharge instructions and disposition. Disposition - Clinical Impression Clinical Impression: DKA (diabetic ketoacidoses) - Disposition Disposition Time: 04:00 Condition: SERIOUS
[2017-10-28 01:52] LABS: VENOUS BLOOD GAS BASE EXCESS -22.2 mmol/L (0.0-2.0); VENOUS BLOOD GAS PCO2 19 mmHg (40-60); VENOUS BLOOD GAS PO2 48 mm/Hg (30-55); VENOUS BLOOD PH 7.09 (7.32-7.43)
[2017-10-28] MEDS ORDERED: Insulin Regular 100 units/ml IV STA (01:55)
[2017-10-28 02:01] LABS: BLOOD UREA NITROGEN 15 mg/dl (7-17); GFR AFRICAN-AMERICAN > 60; GFR NON-AFRICAN AMERICAN 55
[2017-10-28] MEDS ORDERED: Insulin Regular 100 units/ml ONE (02:04)
--- NOTE | 2017-10-28 03:58 | CP.PCM.CON ---
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 She refers of coughing for 3 days and taking cough medication. No fever , chills, diarrhea dysuria. PMH: IDDM PSH: Cesarian Section X2; insulin Pump insertion; Right thigh abscess with I&D in 2006 SH: Light smoker; drinks Alcohol socially; No illegal drug use; live with family FH: no known family hx Allergies: NKDA Medication: Reviewed Review of Systems - Constitutional Constitutional: absent: Anorexia, Chills, Fatigue, Fever, Frequent Falls, Headache - EENT Eyes: absent: Floaters, Itchy Eyes, Requires Corrective Lenses Ears: absent: Decreased Hearing, Ear Discharge, Ear Pain, Tinnitus Nose/Mouth/Throat: absent: Epistaxis, Nasal Congestion, Nasal Discharge - Cardiovascular Cardiovascular: absent: Chest Pain, Dyspnea, Edema - Respiratory Respiratory: Cough, Dyspnea - Gastrointestinal Gastrointestinal: Abdominal Pain, Nausea, Temesmus, Vomiting - Genitourinary Genitourinary: Flank Pain. absent: Dysuria, Hematuria, Pyuria, Urinary Hesitance, Voiding Freq/Small Amts - Reproductive: Female Reproductive:Female: absent: Menopausal ( ) - Musculoskeletal Musculoskeletal: absent: Arthralgias, Joint Swelling, Muscle Weakness, Myalgias , Neck Pain, Numbness - Integumentary Integumentary: Dry Skin. absent: New Lesions, Rash, Skin Pain, Unusual Bruising - Neurological Neurological: absent: Confusion, Focal Weakness, Loss of Vision - Psychiatric Psychiatric: absent: Anxiety, Depression, Panic Attacks - Endocrine Endocrine: Palpitations, Polyphagia, Polyuria - Hematologic/Lymphatic Hematologic: absent: Easy Bleeding, Easy Bruising Past Patient History - Infectious Disease Hx of Infectious Diseases: None - Tetanus Immunizations Tetanus Immunization: Unknown - Past Medical History & Family History Past Medical History?: Yes - Past Social History Chewing Tobacco Use: No Cigar Use: No Alcohol: None Drugs: Denies Home Situation {Lives}: With Family - CARDIAC Hx Cardiac Disorders: No - PULMONARY Hx Bronchitis: Yes - NEUROLOGICAL Hx Neurological Disorder: No - HEENT Hx HEENT Problems: No - RENAL Hx Chronic Kidney Disease: No - ENDOCRINE/METABOLIC Hx Endocrine Disorders: Yes (type 1 DM) - HEMATOLOGICAL/ONCOLOGICAL Hx AIDS: No Hx Human Immunodeficiency Virus (HIV): No - INTEGUMENTARY Hx Dermatological Problems: No - MUSCULOSKELETAL/RHEUMATOLOGICAL Hx Falls: No - GASTROINTESTINAL Hx Gastrointestinal Disorders: No - GENITOURINARY/GYNECOLOGICAL Hx Genitourinary Disorders: No - PSYCHIATRIC Hx Anxiety: No Hx Bipolar Disorder: No Hx Depression: No Hx Paranoia: No Hx Post Traumatic Stress Disorder: No Hx Schizophrenia: No - SURGICAL HISTORY Hx Surgeries: Yes Hx Section: Yes (x2) Other/Comment: rt thigh abcess I&D (2006) / insulin pump - ANESTHESIA Hx Anesthesia: Yes Hx Anesthesia Reactions: No Hx Malignant Hyperthermia: No Meds Allergies/Adverse Reactions: Allergies Allergy/AdvReac Type Severity Reaction Status Date / Time No Known Allergies Allergy Verified 10/28/17 00:53 - Medications Medications: Current Medications Insulin Human Regular 100 (units/ Sodium Chloride) 101 mls @ 8.08 mls/hr SC .[id number] [place]; 8 UNITS/HR PRN Reason: Protocol Last Admin: 10/28/17 03:02 Dose: 8.08 mls/hr Physical Exam - Constitutional Appears: No Acute Distress - Head Exam Head Exam: ATRAUMATIC, NORMAL INSPECTION, NORMOCEPHALIC - Eye Exam Eye Exam: EOMI, Normal appearance Pupil Exam: NORMAL ACCOMODATION, PERRL - ENT Exam ENT Exam: Mucous Membranes Moist, Normal Exam, Normal External Ear Exam - Neck Exam Neck exam: Positive for: Full Rom, Lymphadenopathy, Meningismus, Thyromegaly - Respiratory Exam Respiratory Exam: Clear to Auscultation Bilateral. absent: Rales, Rhonchi, Wheezes - Cardiovascular Exam Cardiovascular Exam: REGULAR RHYTHM, RRR, +S1, +S2 - GI/Abdominal Exam GI & Abdominal Exam: Normal Bowel Sounds, Organomegaly, Pulsatile Mass, Soft. absent: Tenderness - Rectal Exam Rectal Exam: Deferred - Extremities Exam Extremities exam: Positive for: calf tenderness, full ROM, joint swelling, normal inspection - Back Exam Back exam: NORMAL INSPECTION. absent: CVA tenderness (L), CVA tenderness (R) - Neurological Exam Neurological exam: Alert, CN II-XII Intact, Oriented x3, Reflexes Normal - Psychiatric Exam Psychiatric exam: Normal Affect, Normal Mood - Skin Skin Exam: Intact, Normal Color, Warm Results - Vital Signs Recent Vital Signs: Last Vital Signs Temp 98.0 F 10/28/17 03:40 Pulse 105 H 10/28/17 03:40 Resp 23 10/28/17 03:40 BP 118/70 10/28/17 03:40 Pulse Ox 100 10/28/17 03:30 - Labs Result Diagrams: 10/28/17 01:26 10/28/17 01:26 Labs: Laboratory Results - last 24 hr 10/28/17 10/28/17 10/28/17 00:52 01:25 01:26 WBC RBC Hgb Hct MCV MCH MCHC RDW Plt Count MPV Neut % (Auto) Lymph % (Auto) [place] % (Auto) Eos % (Auto) Baso % (Auto) Neut # (Auto) Lymph # (Auto) [place] # (Auto) Eos # (Auto) Baso # (Auto) pO2 VBG pH VBG pCO2 VBG HCO3 VBG Total CO2 VBG O2 Sat (Calc) VBG Base Excess VBG Potassium Glucose Lactate FiO2 Crit Value Called To Crit Value Called By Crit Value Read Back Blood Gas Notified Time Sodium 141 Potassium 4.8 Chloride 101 Carbon Dioxide < 5 L* D Anion Gap 40 H BUN 15 Creatinine 1.2 Est GFR ( Amer) > 60 Est GFR (Non-Af Amer) 55 POC Glucose (mg/dL) > 500 H* Random Glucose 668 H* D Calcium 9.0 Magnesium 2.0 Venous Blood Potassium Urine Color Colorless Urine Clarity Slighty-cloudy Urine pH 6.0 Ur Specific [place] 1.022 Urine Protein Negative Urine Glucose (UA) >=500 Urine Ketones 80 Urine Blood Small Urine Nitrate Negative Urine Bilirubin Negative Urine Urobilinogen 0.2-1.0 Ur Leukocyte Esterase Neg Urine RBC (Auto) 1 Urine Microscopic WBC 1 Ur Squamous Epith Cells 3 10/28/17 10/28/17 10/28/17 01:26 01:48 02:06 WBC 7.1 RBC 4.68 Hgb 13.0 Hct 42.8 MCV 91.6 D MCH 27.8 MCHC 30.3 L RDW 15.9 H Plt Count 341 MPV 7.7 Neut % (Auto) 69.6 Lymph % (Auto) 23.3 [place] % (Auto) 4.5 Eos % (Auto) 1.6 Baso % (Auto) 1.0 Neut # (Auto) 4.9 Lymph # (Auto) 1.6 [place] # (Auto) 0.3 Eos # (Auto) 0.1 Baso # (Auto) 0.1 pO2 48 VBG pH 7.09 L* VBG pCO2 19 L* VBG HCO3 6.7 VBG Total CO2 6.4 L VBG O2 Sat (Calc) 78.3 H VBG Base Excess -22.2 L VBG Potassium 5.5 H Glucose > 750 H* D Lactate 1.8 FiO2 21.0 Crit Value Called To Tayler leonard md Crit Value Called By 333 Crit Value Read Back Y Blood Gas Notified Time 151 Sodium 134.0 Potassium Chloride 95.0 L Carbon Dioxide Anion Gap BUN Creatinine Est GFR ( Amer) Est GFR (Non-Af Amer) POC Glucose (mg/dL) > 500 H* Random Glucose Calcium Magnesium Venous Blood Potassium 5.5 H Urine Color Urine Clarity Urine pH Ur Specific [place] Urine Protein Urine Glucose (UA) Urine Ketones Urine Blood Urine Nitrate Urine Bilirubin Urine Urobilinogen Ur Leukocyte Esterase Urine RBC (Auto) Urine Microscopic WBC Ur Squamous Epith Cells Assessment & Plan - Assessment and Plan (Free Text) Assessment: #DM I with DKA Plan: 26 years old female with hx of IDDM and multiple admissions for DKA, comes with polyuria, polyphagia, dizziness, loss of energy, Somnolence and loss of energy. She refers of coughing for 3 days and taking cough medication. No fever, chills , diarrhea dysuria. #. DM I with DKA - Consult Dr Gallego - IV Fluid 200Mls/hr D5NS - IV Insulin drip with DKA protocol - Accucheck Q1H - Electrolytes Q4h #. DVT prophylaxis with SCD and lovenox #. Code Status: Full - Date & Time Date: 10/28/17 Time: 03:57
[2017-10-28] MEDS ORDERED: Dextrose 5%/0.45% NS 1,000 ML IV SCH (04:15)
--- NOTE | 2017-10-28 04:25 | RAD ---
EXAM: XR Chest, 1 View CLINICAL HISTORY: 26 years old, female; Condition or disease; Other: Dka; Patient HX: See phys doc TECHNIQUE: Frontal view of the chest 3:13 AM 10/28/2017. COMPARISON: CR - CHEST PORTABLE 2017-04-14 23:14 FINDINGS: Lungs: Unremarkable. No consolidation. Pleural space: Unremarkable. No pneumothorax. Heart: Unremarkable. No cardiomegaly. Mediastinum: Unremarkable. Bones/joints: Unremarkable. IMPRESSION: No acute cardiopulmonary disease.
[2017-10-28] MEDS ORDERED: Glucagon Recombinant 1 mg Inj IM PRN (04:31)
[2017-10-28] MEDS ORDERED: Dextrose 50% SYRINGE Inj (50 ml) IV PRN (04:31)
[2017-10-28] MEDS ORDERED: Sodium Chloride 0.9% 1,000 ML IV SCH (04:45)
[2017-10-28 05:12] LABS: VENOUS BLOOD GAS BASE EXCESS -15.9 mmol/L (0.0-2.0); VENOUS BLOOD GAS PCO2 21 mmHg (40-60); VENOUS BLOOD GAS PO2 68 mm/Hg (30-55); VENOUS BLOOD PH 7.25 (7.32-7.43)
[2017-10-28] MEDS ORDERED: Dextrose 5%/0.9% NS 1,000 ML IV SCH (05:30)
[2017-10-28 06:05] LABS: BLOOD UREA NITROGEN 11 mg/dl (7-17); CALCIUM 8.5 mg/dL (8.4-10.2); GFR AFRICAN-AMERICAN > 60; GFR NON-AFRICAN AMERICAN > 60
--- NOTE | 2017-10-28 08:13 | CP.PCM.HP ---
History of Present Illness - History of Present Illness History of Present Illness: CC: hyperglycemia HPI: 26 y/o woman w/ pmh of IDDM and many previous admissions for DKA presented to the ED with blood glucose of >500, she was having symptoms of polyuria and polydypsia with cough for the past 3 days. Patient has been taking cough syrup and not insulin for the past 3 days, but reports that she had been adherent prior to 3 days ago. Patient denies headaches, chest pain, SOB, abdominal pain , nausea, vomiting, diarrhea, dysuria, or fever. 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 Roy this morning Present on Admission - Present on Admission Any Indicators Present on Admission: Yes History of DVT/PE: No History of Uncontrolled Diabetes: Yes Urinary Catheter: No Decubitus Ulcer Present: No Review of Systems - Review of Systems All systems: reviewed and no additional remarkable complaints except - Constitutional Constitutional: absent: Chills, Fever - EENT Eyes: absent: Change in Vision - Cardiovascular Cardiovascular: absent: Chest Pain - Respiratory Respiratory: As Per HPI, Cough. absent: Dyspnea - Gastrointestinal Gastrointestinal: absent: Abdominal Pain, Diarrhea, Nausea, Vomiting - Genitourinary Genitourinary: absent: Dysuria Additional comments: polyuria and polydipsia - Integumentary Integumentary: absent: Rash Past Patient History - Infectious Disease Hx of Infectious Diseases: None - Tetanus Immunizations Tetanus Immunization: Unknown - Past Medical History & Family History Past Medical History?: Yes - Past Social History Alcohol: None Drugs: Denies - CARDIAC Hx Cardiac Disorders: No - PULMONARY Hx Bronchitis: Yes - NEUROLOGICAL Hx Neurological Disorder: No - HEENT Hx HEENT Problems: No - RENAL Hx Chronic Kidney Disease: No - ENDOCRINE/METABOLIC Hx Endocrine Disorders: Yes (type 1 DM) - HEMATOLOGICAL/ONCOLOGICAL Hx Human Immunodeficiency Virus (HIV): No - INTEGUMENTARY Hx Dermatological Problems: No - MUSCULOSKELETAL/RHEUMATOLOGICAL Hx Falls: No - GASTROINTESTINAL Hx Gastrointestinal Disorders: No - GENITOURINARY/GYNECOLOGICAL Hx Genitourinary Disorders: No - PSYCHIATRIC Hx Anxiety: No Hx Bipolar Disorder: No Hx Depression: No Hx Paranoia: No Hx Post Traumatic Stress Disorder: No Hx Schizophrenia: No - SURGICAL HISTORY Hx Surgeries: Yes Hx Section: Yes (x2) Other/Comment: rt thigh abcess I&D (2006) / insulin pump - ANESTHESIA Hx Anesthesia: Yes Hx Anesthesia Reactions: No Hx Malignant Hyperthermia: No Meds Allergies/Adverse Reactions: Allergies Allergy/AdvReac Type Severity Reaction Status Date / Time No Known Allergies Allergy Verified 10/28/17 00:53 Physical Exam - Constitutional Appears: Non-toxic, No Acute Distress - Head Exam Head Exam: ATRAUMATIC, NORMAL INSPECTION, NORMOCEPHALIC - Eye Exam Eye Exam: EOMI, Normal appearance - ENT Exam ENT Exam: Mucous Membranes Moist - Neck Exam Neck exam: Positive for: Full Rom. Negative for: Tenderness - Respiratory Exam Respiratory Exam: Clear to Auscultation Bilateral. absent: Accessory Muscle Use , Decreased Breath Sounds, Rales, Rhonchi, Wheezes, Respiratory Distress - Cardiovascular Exam Cardiovascular Exam: Tachycardia, REGULAR RHYTHM - GI/Abdominal Exam GI & Abdominal Exam: Normal Bowel Sounds, Soft. absent: Distended, Tenderness - Extremities Exam Extremities exam: Negative for: calf tenderness, pedal edema, tenderness - Back Exam Back exam: absent: CVA tenderness (L), CVA tenderness (R) - Neurological Exam Neurological exam: Alert, Oriented x3 - Skin Skin Exam: Dry, Intact, Normal Color, Warm Results - Vital Signs Recent Vital Signs: Last Vital Signs Temp 98.1 F 10/28/17 04:37 Pulse 113 H 10/28/17 06:00 Resp 21 10/28/17 06:00 BP 107/65 10/28/17 06:00 Pulse Ox 99 10/28/17 06:00 - Labs Result Diagrams: 10/28/17 01:26 10/28/17 04:40 Labs: Laboratory Results - last 24 hr 10/28/17 10/28/17 10/28/17 00:52 01:25 01:26 WBC RBC Hgb Hct MCV MCH MCHC RDW Plt Count MPV Neut % (Auto) Lymph % (Auto) [place] % (Auto) Eos % (Auto) Baso % (Auto) Neut # (Auto) Lymph # (Auto) [place] # (Auto) Eos # (Auto) Baso # (Auto) pO2 VBG pH VBG pCO2 VBG HCO3 VBG Total CO2 VBG O2 Sat (Calc) VBG Base Excess VBG Potassium Glucose Lactate FiO2 Crit Value Called To Crit Value Called By Crit Value Read Back Blood Gas Notified Time Sodium 141 Potassium 4.8 Chloride 101 Carbon Dioxide < 5 L* D Anion Gap 40 H BUN 15 Creatinine 1.2 Est GFR ( Amer) > 60 Est GFR (Non-Af Amer) 55 POC Glucose (mg/dL) > 500 H* Random Glucose 668 H* D Calcium 9.0 Magnesium 2.0 Venous Blood Potassium Urine Color Colorless Urine Clarity Slighty-cloudy Urine pH 6.0 Ur Specific [place] 1.022 Urine Protein Negative Urine Glucose (UA) >=500 Urine Ketones 80 Urine Blood Small Urine Nitrate Negative Urine Bilirubin Negative Urine Urobilinogen 0.2-1.0 Ur Leukocyte Esterase Neg Urine RBC (Auto) 1 Urine Microscopic WBC 1 Ur Squamous Epith Cells 3 10/28/17 10/28/17 10/28/17 01:26 01:48 02:06 WBC 7.1 RBC 4.68 Hgb 13.0 Hct 42.8 MCV 91.6 D MCH 27.8 MCHC 30.3 L RDW 15.9 H Plt Count 341 MPV 7.7 Neut % (Auto) 69.6 Lymph % (Auto) 23.3 [place] % (Auto) 4.5 Eos % (Auto) 1.6 Baso % (Auto) 1.0 Neut # (Auto) 4.9 Lymph # (Auto) 1.6 [place] # (Auto) 0.3 Eos # (Auto) 0.1 Baso # (Auto) 0.1 pO2 48 VBG pH 7.09 L* VBG pCO2 19 L* VBG HCO3 6.7 VBG Total CO2 6.4 L VBG O2 Sat (Calc) 78.3 H VBG Base Excess -22.2 L VBG Potassium 5.5 H Glucose > 750 H* D Lactate 1.8 FiO2 21.0 Crit Value Called To Tayler leonard md Crit Value Called By 333 Crit Value Read Back Y Blood Gas Notified Time 151 Sodium 134.0 Potassium Chloride 95.0 L Carbon Dioxide Anion Gap BUN Creatinine Est GFR ( Amer) Est GFR (Non-Af Amer) POC Glucose (mg/dL) > 500 H* Random Glucose Calcium Magnesium Venous Blood Potassium 5.5 H Urine Color Urine Clarity Urine pH Ur Specific [place] Urine Protein Urine Glucose (UA) Urine Ketones Urine Blood Urine Nitrate Urine Bilirubin Urine Urobilinogen Ur Leukocyte Esterase Urine RBC (Auto) Urine Microscopic WBC Ur Squamous Epith Cells 10/28/17 10/28/17 10/28/17 04:00 04:40 04:59 WBC RBC Hgb Hct MCV MCH MCHC RDW Plt Count MPV Neut % (Auto) Lymph % (Auto) [place] % (Auto) Eos % (Auto) Baso % (Auto) Neut # (Auto) Lymph # (Auto) [place] # (Auto) Eos # (Auto) Baso # (Auto) pO2 VBG pH VBG pCO2 VBG HCO3 VBG Total CO2 VBG O2 Sat (Calc) VBG Base Excess VBG Potassium Glucose Lactate FiO2 Crit Value Called To Crit Value Called By Crit Value Read Back Blood Gas Notified Time Sodium 143 Potassium 3.7 Chloride 108 H Carbon Dioxide 7 L* D Anion Gap 32 H BUN 11 Creatinine 0.8 Est GFR ( Amer) > 60 Est GFR (Non-Af Amer) > 60 POC Glucose (mg/dL) 139 H 104 Random Glucose 105 Calcium 8.5 Magnesium Venous Blood Potassium Urine Color Urine Clarity Urine pH Ur Specific [place] Urine Protein Urine Glucose (UA) Urine Ketones Urine Blood Urine Nitrate Urine Bilirubin Urine Urobilinogen Ur Leukocyte Esterase Urine RBC (Auto) Urine Microscopic WBC Ur Squamous Epith Cells 10/28/17 10/28/17 10/28/17 05:08 06:02 06:48 WBC RBC Hgb Hct MCV MCH MCHC RDW Plt Count MPV Neut % (Auto) Lymph % (Auto) [place] % (Auto) Eos % (Auto) Baso % (Auto) Neut # (Auto) Lymph # (Auto) [place] # (Auto) Eos # (Auto) Baso # (Auto) pO2 68 H VBG pH 7.25 L VBG pCO2 21 L VBG HCO3 12.3 VBG Total CO2 9.8 L VBG O2 Sat (Calc) 96.4 H VBG Base Excess -15.9 L VBG Potassium 3.6 Glucose 110 H Lactate 6.6 H* FiO2 21.0 Crit Value Called To Christy cadena Crit Value Called By 292 Crit Value Read Back Y Blood Gas Notified Time 512 Sodium 136.0 Potassium Chloride 106.0 Carbon Dioxide Anion Gap BUN Creatinine Est GFR ( Amer) Est GFR (Non-Af Amer) POC Glucose (mg/dL) 85 92 Random Glucose Calcium Magnesium Venous Blood Potassium 3.6 Urine Color Urine Clarity Urine pH Ur Specific [place] Urine Protein Urine Glucose (UA) Urine Ketones Urine Blood Urine Nitrate Urine Bilirubin Urine Urobilinogen Ur Leukocyte Esterase Urine RBC (Auto) Urine Microscopic WBC Ur Squamous Epith Cells Assessment & Plan (1) DKA (diabetic ketoacidoses) Status: Acute - Assessment and Plan (Free Text) Plan: c/w present management afebrile, tachycardic, normotensive endocrinology consult ordered D5 1/2 NS w/ K+ 20 meq IV @ 150 mL/h IV insulin drip, DKA protocol hypoglycemic protocol accucheck Q2h f/u VBG Prophylactic measures: DVT lovenox 40 mg SC daily monitor for acute changes
[2017-10-28] MEDS: Potassium Ch 20mEq in D5-1/2NS 1,000 ML IV SCH ×3 (09:07→22:20)
--- NOTE | 2017-10-28 10:33 | CARD ---
APPROVED REPORT EKG Measurement Heart [id number] <Conclusion> Sinus tachycardia Otherwise normal ECG
--- NOTE | 2017-10-28 12:34 | CP.CCUPN ---
CCU Subjective - Physician Review Subjective (Free Text): Sitting OOB in chair, no distress, c/o feeling weak, also hungry, denies any nausea or abdominal pain, states feeling more ill after taking DayQuil for cough and other URI symptoms, denies any fevers or chills at home. Insulin drip off this AM after BS levels dropped below 150. Other VS and I/Os reviewed. ROS: No other pertinent negs or positives on 10+ system review. PMSFH: All other Nursing and physician documentation reviewed to date; no new pertinent info noted relevant to current medical problems. EXAM- HEENT: no icterus, no gaze preference, pupils 3 mm equal and reactive, no icterus NECK: No JVD, supple, carotids equal upstroke bilat/no bruits CHEST: decreased BS bases, no wheezes audible HEART: regular distant, tachy S1S2, no rubs. ABD: soft, no distention, no tympany, no palp tenderness, BS hypoactive. EXT: no edema. No peripheral/ digital cyanosis, no calf tenderness or palpable cords, distal pulses intact and symmetrical. NEURO: no gross focal motor defictis SKIN: no rashes, warm and dry. LABS: Lactate 0.8 WBC= 7.1 HGB= 13.0 PLTs= 341 K INR= 1.6 on 10/25. ABG= 7.25// on RA Lactate = 6.6 Na= 143 K= 3.7 HCO3= 7 CL= 108 BUN/Cr= 11/0.8 BS= 105 IMPRESSION / MAJOR PROBLEMS NOW: 1. DKA with lactic acidosis 2. Intolerance to DayQuil medication components PLAN: 1. Resume Insulin drip, change fluid components to D5Ns and add KCL at 200ml/hr ; continue until anion gap normalizes and / or serum bicarb exceeds 20. 2. Serial lactates till normalized, no other source if infection or severe sepsis noted. 3. Allow PO food intake with mod carb consistency diet. 4. Endocrine eval. CCU Objective - Vital Signs / Intake & Output Vital Signs (Last 4 hours): Vital Signs Pulse Resp BP Pulse Ox 10/28/17 09:00 102 H 16 114/59 L 96 Intake and Output (Last 8hrs): Intake & Output 10/27/17 10/28/17 10/28/17 22:59 06:59 14:59 Intake Total 450 453 Balance 450 453 Weight 136 lb Intake: IV 450 453 - Medications Active Medications: Active Medications Generic Name Dose Route Start Last Admin Trade Name Freq PRN Reason Stop Dose Admin Dextrose 0 ml 10/28/17 04:31 Dextrose 50% Inj IV STAT PRN Hypoglycemia Protocol Protocol Dextrose 0 gm 10/28/17 04:31 Glutose 15 PO ONCE PRN Hypoglycemia Protocol Protocol Enoxaparin Sodium 40 mg 10/29/17 09:00 Lovenox SC DAILY [facility] Protocol Glucagon 0 mg 10/28/17 04:31 Glucagen Diagnostic Kit IM STAT PRN Hypoglycemia Protocol Protocol Insulin Human Regular 100 101 mls @ 1.01 mls/hr 10/28/17 04:45 10/28/17 11:23 units/ Sodium Chloride IV 5 units/hr .Q24H [place] 5.05 mls/hr Protocol Titration 1 UNITS/HR Potassium Chloride/Dextrose/Sod Cl 1,000 mls @ 150 mls/hr 10/28/17 08:30 07/05 09:07 Potassium Chl 20 Meq In D5-1/2ns IV 10/29/17 08:29 150 mls/hr .[id number] [facility] Administration - Patient Studies Lab Studies: Lab Studies 10/28/17 10/28/17 10/28/17 Range/Units 12:23 10:06 08:35 WBC (4.8-10.8) K/uL RBC (3.80-5.20) Mil/uL Hgb (12.0-16.0) g/dL Hct (34.0-47.0) % MCV (81.0-99.0) fl MCH (27.0-31.0) pg MCHC (33.0-37.0) g/dL RDW (11.5-14.5) % Plt Count (130-400) K/uL MPV (7.2-11.7) fl Neut % (Auto) (50.0-75.0) % Lymph % (Auto) (20.0-40.0) % [place] % (Auto) (0.0-10.0) % Eos % (Auto) (0.0-4.0) % Baso % (Auto) (0.0-2.0) % Neut # (Auto) (1.8-7.0) K/uL Lymph # (Auto) (1.0-4.3) K/uL [place] # (Auto) (0.0-0.8) K/uL Eos # (Auto) (0.0-0.7) K/uL Baso # (Auto) (0.0-0.2) K/uL pO2 (30-55) mm/Hg VBG pH (7.32-7.43) VBG pCO2 (40-60) mmHg VBG HCO3 mmol/L VBG Total CO2 (22-28) mmol/L VBG O2 Sat (Calc) (40-65) % VBG Base Excess (0.0-2.0) mmol/L VBG Potassium (3.6-5.2) mmol/L Glucose (65-105) mg/dL Lactate (0.7-2.1) mmol/L FiO2 % Crit Value Called To Crit Value Called By Crit Value Read Back Blood Gas Notified Time Sodium (132-148) mmol/l Potassium (3.6-5.0) MMOL/L Chloride (98-107) mmol/L Carbon Dioxide (22-30) mmol/L Anion Gap (10-20) BUN (7-17) mg/dl Creatinine (0.7-1.2) mg/dl Est GFR ( Amer) Est GFR (Non-Af Amer) POC Glucose (mg/dL) 185 H 320 H 176 H (65-110) mg/dL Random Glucose (65-105) mg/dL Calcium (8.4-10.2) mg/dL Magnesium (1.6-2.3) MG/DL Venous Blood Potassium (3.6-5.2) mmol/L Urine Color (YELLOW) Urine Clarity (Clear) Urine pH (5.0-8.0) Ur Specific [place] (1.003-1.030) Urine Protein (NEGATIVE) mg/dL Urine Glucose (UA) (Normal) mg/dL Urine Ketones (NEGATIVE) mg/dL Urine Blood (NEGATIVE) Urine Nitrate (NEGATIVE) Urine Bilirubin (NEGATIVE) Urine Urobilinogen (0.2-1.0) mg/dL Ur Leukocyte Esterase (Negative) Dian/uL Urine RBC (Auto) (0-3) /hpf Urine Microscopic WBC (0-5) /hpf Ur Squamous Epith Cells (0-5) /hpf 10/28/17 10/28/17 10/28/17 Range/Units 06:48 06:02 05:08 WBC (4.8-10.8) K/uL RBC (3.80-5.20) Mil/uL Hgb (12.0-16.0) g/dL Hct (34.0-47.0) % MCV (81.0-99.0) fl MCH (27.0-31.0) pg MCHC (33.0-37.0) g/dL RDW (11.5-14.5) % Plt Count (130-400) K/uL MPV (7.2-11.7) fl Neut % (Auto) (50.0-75.0) % Lymph % (Auto) (20.0-40.0) % [place] % (Auto) (0.0-10.0) % Eos % (Auto) (0.0-4.0) % Baso % (Auto) (0.0-2.0) % Neut # (Auto) (1.8-7.0) K/uL Lymph # (Auto) (1.0-4.3) K/uL [place] # (Auto) (0.0-0.8) K/uL Eos # (Auto) (0.0-0.7) K/uL Baso # (Auto) (0.0-0.2) K/uL pO2 68 H (30-55) mm/Hg VBG pH 7.25 L (7.32-7.43) VBG pCO2 21 L (40-60) mmHg VBG HCO3 12.3 mmol/L VBG Total CO2 9.8 L (22-28) mmol/L VBG O2 Sat (Calc) 96.4 H (40-65) % VBG Base Excess -15.9 L (0.0-2.0) mmol/L VBG Potassium 3.6 (3.6-5.2) mmol/L Glucose 110 H (65-105) mg/dL Lactate 6.6 H* (0.7-2.1) mmol/L FiO2 21.0 % Crit Value Called To Christy cadena Crit Value Called By 292 Crit Value Read Back Y Blood Gas Notified Time 512 Sodium 136.0 (132-148) mmol/l Potassium (3.6-5.0) MMOL/L Chloride 106.0 (98-107) mmol/L Carbon Dioxide (22-30) mmol/L Anion Gap (10-20) BUN (7-17) mg/dl Creatinine (0.7-1.2) mg/dl Est GFR ( Amer) Est GFR (Non-Af Amer) POC Glucose (mg/dL) 92 85 (65-110) mg/dL Random Glucose (65-105) mg/dL Calcium (8.4-10.2) mg/dL Magnesium (1.6-2.3) MG/DL Venous Blood Potassium 3.6 (3.6-5.2) mmol/L Urine Color (YELLOW) Urine Clarity (Clear) Urine pH (5.0-8.0) Ur Specific [place] (1.003-1.030) Urine Protein (NEGATIVE) mg/dL Urine Glucose (UA) (Normal) mg/dL Urine Ketones (NEGATIVE) mg/dL Urine Blood (NEGATIVE) Urine Nitrate (NEGATIVE) Urine Bilirubin (NEGATIVE) Urine Urobilinogen (0.2-1.0) mg/dL Ur Leukocyte Esterase (Negative) Dian/uL Urine RBC (Auto) (0-3) /hpf Urine Microscopic WBC (0-5) /hpf Ur Squamous Epith Cells (0-5) /hpf 10/28/17 10/28/17 10/28/17 Range/Units 04:59 04:40 04:00 WBC (4.8-10.8) K/uL RBC (3.80-5.20) Mil/uL Hgb (12.0-16.0) g/dL Hct (34.0-47.0) % MCV (81.0-99.0) fl MCH (27.0-31.0) pg MCHC (33.0-37.0) g/dL RDW (11.5-14.5) % Plt Count (130-400) K/uL MPV (7.2-11.7) fl Neut % (Auto) (50.0-75.0) % Lymph % (Auto) (20.0-40.0) % [place] % (Auto) (0.0-10.0) % Eos % (Auto) (0.0-4.0) % Baso % (Auto) (0.0-2.0) % Neut # (Auto) (1.8-7.0) K/uL Lymph # (Auto) (1.0-4.3) K/uL [place] # (Auto) (0.0-0.8) K/uL Eos # (Auto) (0.0-0.7) K/uL Baso # (Auto) (0.0-0.2) K/uL pO2 (30-55) mm/Hg VBG pH (7.32-7.43) VBG pCO2 (40-60) mmHg VBG HCO3 mmol/L VBG Total CO2 (22-28) mmol/L VBG O2 Sat (Calc) (40-65) % VBG Base Excess (0.0-2.0) mmol/L VBG Potassium (3.6-5.2) mmol/L Glucose (65-105) mg/dL Lactate (0.7-2.1) mmol/L FiO2 % Crit Value Called To Crit Value Called By Crit Value Read Back Blood Gas Notified Time Sodium 143 (132-148) mmol/l Potassium 3.7 (3.6-5.0) MMOL/L Chloride 108 H (98-107) mmol/L Carbon Dioxide 7 L* D (22-30) mmol/L Anion Gap 32 H (10-20) BUN 11 (7-17) mg/dl Creatinine 0.8 (0.7-1.2) mg/dl Est GFR ( Amer) > 60 Est GFR (Non-Af Amer) > 60 POC Glucose (mg/dL) 104 139 H (65-110) mg/dL Random Glucose 105 (65-105) mg/dL Calcium 8.5 (8.4-10.2) mg/dL Magnesium (1.6-2.3) MG/DL Venous Blood Potassium (3.6-5.2) mmol/L Urine Color (YELLOW) Urine Clarity (Clear) Urine pH (5.0-8.0) Ur Specific [place] (1.003-1.030) Urine Protein (NEGATIVE) mg/dL Urine Glucose (UA) (Normal) mg/dL Urine Ketones (NEGATIVE) mg/dL Urine Blood (NEGATIVE) Urine Nitrate (NEGATIVE) Urine Bilirubin (NEGATIVE) Urine Urobilinogen (0.2-1.0) mg/dL Ur Leukocyte Esterase (Negative) Dian/uL Urine RBC (Auto) (0-3) /hpf Urine Microscopic WBC (0-5) /hpf Ur Squamous Epith Cells (0-5) /hpf 10/28/17 10/28/17 10/28/17 Range/Units 02:06 01:48 01:26 WBC 7.1 (4.8-10.8) K/uL RBC 4.68 (3.80-5.20) Mil/uL Hgb 13.0 (12.0-16.0) g/dL Hct 42.8 (34.0-47.0) % MCV 91.6 D (81.0-99.0) fl MCH 27.8 (27.0-31.0) pg MCHC 30.3 L (33.0-37.0) g/dL RDW 15.9 H (11.5-14.5) % Plt Count 341 (130-400) K/uL MPV 7.7 (7.2-11.7) fl Neut % (Auto) 69.6 (50.0-75.0) % Lymph % (Auto) 23.3 (20.0-40.0) % [place] % (Auto) 4.5 (0.0-10.0) % Eos % (Auto) 1.6 (0.0-4.0) % Baso % (Auto) 1.0 (0.0-2.0) % Neut # (Auto) 4.9 (1.8-7.0) K/uL Lymph # (Auto) 1.6 (1.0-4.3) K/uL [place] # (Auto) 0.3 (0.0-0.8) K/uL Eos # (Auto) 0.1 (0.0-0.7) K/uL Baso # (Auto) 0.1 (0.0-0.2) K/uL pO2 48 (30-55) mm/Hg VBG pH 7.09 L* (7.32-7.43) VBG pCO2 19 L* (40-60) mmHg VBG HCO3 6.7 mmol/L VBG Total CO2 6.4 L (22-28) mmol/L VBG O2 Sat (Calc) 78.3 H (40-65) % VBG Base Excess -22.2 L (0.0-2.0) mmol/L VBG Potassium 5.5 H (3.6-5.2) mmol/L Glucose > 750 H* D (65-105) mg/dL Lactate 1.8 (0.7-2.1) mmol/L FiO2 21.0 % Crit Value Called To Tayler leonard md Crit Value Called By 333 Crit Value Read Back Y Blood Gas Notified Time 151 Sodium 134.0 (132-148) mmol/l Potassium (3.6-5.0) MMOL/L Chloride 95.0 L (98-107) mmol/L Carbon Dioxide (22-30) mmol/L Anion Gap (10-20) BUN (7-17) mg/dl Creatinine (0.7-1.2) mg/dl Est GFR ( Amer) Est GFR (Non-Af Amer) POC Glucose (mg/dL) > 500 H* (65-110) mg/dL Random Glucose (65-105) mg/dL Calcium (8.4-10.2) mg/dL Magnesium (1.6-2.3) MG/DL Venous Blood Potassium 5.5 H (3.6-5.2) mmol/L Urine Color (YELLOW) Urine Clarity (Clear) Urine pH (5.0-8.0) Ur Specific [place] (1.003-1.030) Urine Protein (NEGATIVE) mg/dL Urine Glucose (UA) (Normal) mg/dL Urine Ketones (NEGATIVE) mg/dL Urine Blood (NEGATIVE) Urine Nitrate (NEGATIVE) Urine Bilirubin (NEGATIVE) Urine Urobilinogen (0.2-1.0) mg/dL Ur Leukocyte Esterase (Negative) Dian/uL Urine RBC (Auto) (0-3) /hpf Urine Microscopic WBC (0-5) /hpf Ur Squamous Epith Cells (0-5) /hpf 10/28/17 10/28/17 10/28/17 Range/Units 01:26 01:25 00:52 WBC (4.8-10.8) K/uL RBC (3.80-5.20) Mil/uL Hgb (12.0-16.0) g/dL Hct (34.0-47.0) % MCV (81.0-99.0) fl MCH (27.0-31.0) pg MCHC (33.0-37.0) g/dL RDW (11.5-14.5) % Plt Count (130-400) K/uL MPV (7.2-11.7) fl Neut % (Auto) (50.0-75.0) % Lymph % (Auto) (20.0-40.0) % [place] % (Auto) (0.0-10.0) % Eos % (Auto) (0.0-4.0) % Baso % (Auto) (0.0-2.0) % Neut # (Auto) (1.8-7.0) K/uL Lymph # (Auto) (1.0-4.3) K/uL [place] # (Auto) (0.0-0.8) K/uL Eos # (Auto) (0.0-0.7) K/uL Baso # (Auto) (0.0-0.2) K/uL pO2 (30-55) mm/Hg VBG pH (7.32-7.43) VBG pCO2 (40-60) mmHg VBG HCO3 mmol/L VBG Total CO2 (22-28) mmol/L VBG O2 Sat (Calc) (40-65) % VBG Base Excess (0.0-2.0) mmol/L VBG Potassium (3.6-5.2) mmol/L Glucose (65-105) mg/dL Lactate (0.7-2.1) mmol/L FiO2 % Crit Value Called To Crit Value Called By Crit Value Read Back Blood Gas Notified Time Sodium 141 (132-148) mmol/l Potassium 4.8 (3.6-5.0) MMOL/L Chloride 101 (98-107) mmol/L Carbon Dioxide < 5 L* D (22-30) mmol/L Anion Gap 40 H (10-20) BUN 15 (7-17) mg/dl Creatinine 1.2 (0.7-1.2) mg/dl Est GFR ( Amer) > 60 Est GFR (Non-Af Amer) 55 POC Glucose (mg/dL) > 500 H* (65-110) mg/dL Random Glucose 668 H* D (65-105) mg/dL Calcium 9.0 (8.4-10.2) mg/dL Magnesium 2.0 (1.6-2.3) MG/DL Venous Blood Potassium (3.6-5.2) mmol/L Urine Color Colorless (YELLOW) Urine Clarity Slighty-cloudy (Clear) Urine pH 6.0 (5.0-8.0) Ur Specific [place] 1.022 (1.003-1.030) Urine Protein Negative (NEGATIVE) mg/dL Urine Glucose (UA) >=500 (Normal) mg/dL Urine Ketones 80 (NEGATIVE) mg/dL Urine Blood Small (NEGATIVE) Urine Nitrate Negative (NEGATIVE) Urine Bilirubin Negative (NEGATIVE) Urine Urobilinogen 0.2-1.0 (0.2-1.0) mg/dL Ur Leukocyte Esterase Neg (Negative) Dian/uL Urine RBC (Auto) 1 (0-3) /hpf Urine Microscopic WBC 1 (0-5) /hpf Ur Squamous Epith Cells 3 (0-5) /hpf Laboratory Results - last 24 hr 10/28/17 10/28/17 10/28/17 00:52 01:25 01:26 WBC RBC Hgb Hct MCV MCH MCHC RDW Plt Count MPV Neut % (Auto) Lymph % (Auto) [place] % (Auto) Eos % (Auto) Baso % (Auto) Neut # (Auto) Lymph # (Auto) [place] # (Auto) Eos # (Auto) Baso # (Auto) pO2 VBG pH VBG pCO2 VBG HCO3 VBG Total CO2 VBG O2 Sat (Calc) VBG Base Excess VBG Potassium Glucose Lactate FiO2 Crit Value Called To Crit Value Called By Crit Value Read Back Blood Gas Notified Time Sodium 141 Potassium 4.8 Chloride 101 Carbon Dioxide < 5 L* D Anion Gap 40 H BUN 15 Creatinine 1.2 Est GFR ( Amer) > 60 Est GFR (Non-Af Amer) 55 POC Glucose (mg/dL) > 500 H* Random Glucose 668 H* D Calcium 9.0 Magnesium 2.0 Venous Blood Potassium Urine Color Colorless Urine Clarity Slighty-cloudy Urine pH 6.0 Ur Specific [place] 1.022 Urine Protein Negative Urine Glucose (UA) >=500 Urine Ketones 80 Urine Blood Small Urine Nitrate Negative Urine Bilirubin Negative Urine Urobilinogen 0.2-1.0 Ur Leukocyte Esterase Neg Urine RBC (Auto) 1 Urine Microscopic WBC 1 Ur Squamous Epith Cells 3 10/28/17 10/28/17 10/28/17 01:26 01:48 02:06 WBC 7.1 RBC 4.68 Hgb 13.0 Hct 42.8 MCV 91.6 D MCH 27.8 MCHC 30.3 L RDW 15.9 H Plt Count 341 MPV 7.7 Neut % (Auto) 69.6 Lymph % (Auto) 23.3 [place] % (Auto) 4.5 Eos % (Auto) 1.6 Baso % (Auto) 1.0 Neut # (Auto) 4.9 Lymph # (Auto) 1.6 [place] # (Auto) 0.3 Eos # (Auto) 0.1 Baso # (Auto) 0.1 pO2 48 VBG pH 7.09 L* VBG pCO2 19 L* VBG HCO3 6.7 VBG Total CO2 6.4 L VBG O2 Sat (Calc) 78.3 H VBG Base Excess -22.2 L VBG Potassium 5.5 H Glucose > 750 H* D Lactate 1.8 FiO2 21.0 Crit Value Called To Tayler leonard md Crit Value Called By 333 Crit Value Read Back Y Blood Gas Notified Time 151 Sodium 134.0 Potassium Chloride 95.0 L Carbon Dioxide Anion Gap BUN Creatinine Est GFR ( Amer) Est GFR (Non-Af Amer) POC Glucose (mg/dL) > 500 H* Random Glucose Calcium Magnesium Venous Blood Potassium 5.5 H Urine Color Urine Clarity Urine pH Ur Specific [place] Urine Protein Urine Glucose (UA) Urine Ketones Urine Blood Urine Nitrate Urine Bilirubin Urine Urobilinogen Ur Leukocyte Esterase Urine RBC (Auto) Urine Microscopic WBC Ur Squamous Epith Cells 10/28/17 10/28/17 10/28/17 04:00 04:40 04:59 WBC RBC Hgb Hct MCV MCH MCHC RDW Plt Count MPV Neut % (Auto) Lymph % (Auto) [place] % (Auto) Eos % (Auto) Baso % (Auto) Neut # (Auto) Lymph # (Auto) [place] # (Auto) Eos # (Auto) Baso # (Auto) pO2 VBG pH VBG pCO2 VBG HCO3 VBG Total CO2 VBG O2 Sat (Calc) VBG Base Excess VBG Potassium Glucose Lactate FiO2 Crit Value Called To Crit Value Called By Crit Value Read Back Blood Gas Notified Time Sodium 143 Potassium 3.7 Chloride 108 H Carbon Dioxide 7 L* D Anion Gap 32 H BUN 11 Creatinine 0.8 Est GFR ( Amer) > 60 Est GFR (Non-Af Amer) > 60 POC Glucose (mg/dL) 139 H 104 Random Glucose 105 Calcium 8.5 Magnesium Venous Blood Potassium Urine Color Urine Clarity Urine pH Ur Specific [place] Urine Protein Urine Glucose (UA) Urine Ketones Urine Blood Urine Nitrate Urine Bilirubin Urine Urobilinogen Ur Leukocyte Esterase Urine RBC (Auto) Urine Microscopic WBC Ur Squamous Epith Cells 10/28/17 10/28/17 10/28/17 05:08 06:02 06:48 WBC RBC Hgb Hct MCV MCH MCHC RDW Plt Count MPV Neut % (Auto) Lymph % (Auto) [place] % (Auto) Eos % (Auto) Baso % (Auto) Neut # (Auto) Lymph # (Auto) [place] # (Auto) Eos # (Auto) Baso # (Auto) pO2 68 H VBG pH 7.25 L VBG pCO2 21 L VBG HCO3 12.3 VBG Total CO2 9.8 L VBG O2 Sat (Calc) 96.4 H VBG Base Excess -15.9 L VBG Potassium 3.6 Glucose 110 H Lactate 6.6 H* FiO2 21.0 Crit Value Called To Christy cadena Crit Value Called By 292 Crit Value Read Back Y Blood Gas Notified Time 512 Sodium 136.0 Potassium Chloride 106.0 Carbon Dioxide Anion Gap BUN Creatinine Est GFR ( Amer) Est GFR (Non-Af Amer) POC Glucose (mg/dL) 85 92 Random Glucose Calcium Magnesium Venous Blood Potassium 3.6 Urine Color Urine Clarity Urine pH Ur Specific [place] Urine Protein Urine Glucose (UA) Urine Ketones Urine Blood Urine Nitrate Urine Bilirubin Urine Urobilinogen Ur Leukocyte Esterase Urine RBC (Auto) Urine Microscopic WBC Ur Squamous Epith Cells 10/28/17 10/28/17 10/28/17 08:35 10:06 12:23 WBC RBC Hgb Hct MCV MCH MCHC RDW Plt Count MPV Neut % (Auto) Lymph % (Auto) [place] % (Auto) Eos % (Auto) Baso % (Auto) Neut # (Auto) Lymph # (Auto) [place] # (Auto) Eos # (Auto) Baso # (Auto) pO2 VBG pH VBG pCO2 VBG HCO3 VBG Total CO2 VBG O2 Sat (Calc) VBG Base Excess VBG Potassium Glucose Lactate FiO2 Crit Value Called To Crit Value Called By Crit Value Read Back Blood Gas Notified Time Sodium Potassium Chloride Carbon Dioxide Anion Gap BUN Creatinine Est GFR ( Amer) Est GFR (Non-Af Amer) POC Glucose (mg/dL) 176 H 320 H 185 H Random Glucose Calcium Magnesium Venous Blood Potassium Urine Color Urine Clarity Urine pH Ur Specific [place] Urine Protein Urine Glucose (UA) Urine Ketones Urine Blood Urine Nitrate Urine Bilirubin Urine Urobilinogen Ur Leukocyte Esterase Urine RBC (Auto) Urine Microscopic WBC Ur Squamous Epith Cells EKG/Cardiology Studies: Cardiology / EKG Studies 10/28/17 01:09 EKG [ELECTROCARDIOGRAM] Stat Comment: Mode Of Transportation: Reason For Exam: hyperglycemia Fingerstick Blood Sugar Results: 176 Critical Care Progress Note - Nutrition Nutrition: Nutrition Category Date Time Status Consistent Carbohydrate [DIET] Diets 10/28/17 Breakfast Active
[2017-10-28 13:27] LABS: ALT/SGPT 27 U/L (9-52); AST/SGOT 30 U/L (14-36); BLOOD UREA NITROGEN 8 mg/dl (7-17); CALCIUM 8.4 mg/dL (8.4-10.2); GFR AFRICAN-AMERICAN > 60; GFR NON-AFRICAN AMERICAN > 60
[2017-10-28] MEDS ORDERED: Dextrose 50% SYRINGE Inj (50 ml) IVP ONE (22:12)
[2017-10-29] MEDS ORDERED: Potassium Chl 20 mEq in D5-NS 1,000 ML IV SCH (02:15)
--- NOTE | 2017-10-29 02:18 | CON ---
ENDOCRINOLOGY NOTE DATE: LOCATION: In ICU, room 425. HISTORY OF PRESENT ILLNESS: This is a 26-year-old female with known history of type 1 insulin-dependent diabetes and multiple admissions for recurrent DKA and presents here once again with intractable nausea, vomiting, and generalized body weakness and is now being referred for diabetic evaluation and management. PAST MEDICAL HISTORY: As mentioned above, history of type 1 insulin-dependent diabetes, currently on a combination of Humalog given at a variable dose of 10 to 20 units t.i.d. p.r.n. and Lantus given as 20 to 30 units at bedtime again p.r.n. depends on the patient's day-to-day decisions and with frequent drug omissions as noted. She to start on the [employer] insulin pump since the fall of last year, but for many reasons, the patient has not yet started the [employer] insulin pump on the outpatient. She has given multiple reasons again for the aforementioned omission. FAMILY HISTORY: Positive for hypertension and diabetes. SOCIAL HISTORY: The patient is a single mom and has 2 young children and lives with her mother at this time who is very supportive of her care. Also admits to smoking half a pack of cigarettes for 7 years now. REVIEW OF SYSTEMS: Admits to generalized body weakness with easy fatigability and tiredness and suboptimal energy level with progressively worsening dizziness and lightheadedness, worse in the last 2 to 3 days prior to admission. No chest pains or palpitations or PND. Her oral intake has been variable with nausea, dyspepsia, and supervening intractable nausea and vomiting with vague upper abdominal pains. Also admits to marked polyuria, nocturia, and polydipsia as noted. PHYSICAL EXAMINATION: GENERAL: This is average built female in no apparent distress. VITAL SIGNS: Blood pressure of 130/80, pulse of 90 beats per minute and regular, temperature 98, respirations 20, height is 5 feet 3 inches, and weight is 136 pounds. HEENT: Head Is normocephalic. Eyes; anicteric with pink conjunctivae. Funduscopy not possible at this time. Ears, nose, and throat otherwise normal. NECK: Supple. Thyroid gland is normal in size. No carotid bruits or cervical adenopathy. CARDIOPULMONARY: Some adynamic precordium, S1 and S2 is rapid and regular. LUNGS: Clear to auscultation. ABDOMEN: Flat and soft with positive bowel sounds. EXTREMITIES: No peripheral edema. Pulses are +2 bilaterally. LABORATORY DATA: The initial chemistry showed a BUN of 15, sodium 141, potassium 4.8, chloride 101, CO2 is less than 5, glucose is 668, and creatinine is 1.2. The subsequent CO2 now is 9 taken at noontime as noted. ASSESSMENT AND PLAN: This is a 26-year-old female with uncontrolled and decompensated type 1 insulin-dependent diabetes presenting here with diabetic ketoacidosis and dehydration and has a significant history of very poor drug adherence and drug omission to the current insulin regimen with multiple hospital readmissions for diabetic ketoacidosis and dehydration. Plan of management as discussed lengthily with the patient at bedside, the imperative need for tighter metabolic control cannot be overemphasized, and at this point, we will continue the insulin drip infusion as ordered. We will also continue the vigorous IV hydration with potassium supplementation as given. We will try to achieve CO2 of at least over 18 to prevent the metabolic decompensation back to DKA as noted. We will obtain serial chemistries and supplement accordingly as needed. As her acidosis resolved, then we will start her back on a more physiologic basal and bolus insulin regimen with a combination of Humalog given before meals and Levemir at bedtime. Once again upon discharge, we will call the [employer] insulin pump specialist, Ms. Suzanna Colby regarding the resumption of her [employer] insulin pump to have optimize her metabolic control thereof. We will follow. Monet Gallego MD
[2017-10-29] MEDS ORDERED: Dextrose 50% SYRINGE Inj (50 ml) IVP ONE (04:42)
[2017-10-29] MEDS: Potassium Ch 20mEq in D5-1/2NS 1,000 ML IV SCH (05:05)
[2017-10-29 05:38] LABS: ALB/GLOB RATIO 1.1 (1.0-2.1); ALBUMIN 3.4 g/dL (3.5-5.0); ALT/SGPT 31 U/L (9-52); AST/SGOT 38 U/L (14-36); BLOOD UREA NITROGEN 6 mg/dl (7-17); CALCIUM 8.7 mg/dL (8.4-10.2); GFR AFRICAN-AMERICAN > 60; GFR NON-AFRICAN AMERICAN > 60; HDL CHOLESTEROL 35 MG/DL (30-70); LDL CHOLESTEROL 122 mg/dL (0-129)
--- NOTE | 2017-10-29 07:22 | CP.CCUPN ---
CCU Subjective - Physician Review Subjective (Free Text): Acidotic state slowly improving, IVFs changed over to increase supplemental dextrose, remains on insulin drip. Other VS and I/Os reviewed. ROS: No other pertinent negs or positives on 10+ system review. PMSFH: All other Nursing and physician documentation reviewed to date; no new pertinent info noted relevant to current medical problems. EXAM- HEENT: no icterus, no gaze preference, pupils 3 mm equal and reactive, no icterus NECK: No JVD, supple, carotids equal upstroke bilat/no bruits CHEST: decreased BS bases, no wheezes audible HEART: regular distant, tachy S1S2, no rubs. ABD: soft, no distention, no tympany, no palp tenderness, BS hypoactive. EXT: no edema. No peripheral/ digital cyanosis, no calf tenderness or palpable cords, distal pulses intact and symmetrical. NEURO: no gross focal motor defictis SKIN: no rashes, warm and dry. LABS: yesterday's CBC: WBC= 7.1 HGB= 13.0 PLTs= 341 K Today's Lytes- Na= 145 K= 3.9 HCO3= 17 CL= 108 BUN/Cr= 6/0.5 BS= 132 TG 251 IMPRESSION / MAJOR PROBLEMS NOW: 1. DKA with lactic acidosis 2. Hypertriglyceridemia 3. Intolerance to DayQuil medication components PLAN: 1. Continue Insulin drip, changed fluid components; continue until anion gap normalizes and / or serum bicarb exceeds 20. 2. Serial lactates normalized, no other source if infection or severe sepsis noted. 3. Started PO food intake with mod carb consistency diet. 4. Endocrine eval. CCU Objective - Vital Signs / Intake & Output Vital Signs (Last 4 hours): Vital Signs Temp Pulse Resp BP Pulse Ox 10/29/17 06:00 97 H 21 123/74 100 10/29/17 04:00 98.2 F 100 H 21 123/80 100 Intake and Output (Last 8hrs): Intake & Output 10/28/17 10/29/17 10/29/17 22:59 06:59 14:59 Intake Total 1440 1320 Balance 1440 1320 Intake: IV 1320 1150 Oral 120 170 Other: # Voids Urine, Voided 1 1 - Medications Active Medications: Active Medications Generic Name Dose Route Start Last Admin Trade Name Freq PRN Reason Stop Dose Admin Dextrose 0 ml 10/28/17 04:31 Dextrose 50% Inj IV STAT PRN Hypoglycemia Protocol Protocol Dextrose 0 gm 10/28/17 04:31 Glutose 15 PO ONCE PRN Hypoglycemia Protocol Protocol Enoxaparin Sodium 40 mg 10/29/17 09:00 Lovenox SC DAILY LANETTE Protocol Glucagon 0 mg 10/28/17 04:31 Glucagen Diagnostic Kit IM STAT PRN Hypoglycemia Protocol Protocol Insulin Human Regular 100 101 mls @ 1.01 mls/hr 10/28/17 04:45 10/28/17 20:00 units/ Sodium Chloride IV 2 units/hr .Q24H LANETTE 2.02 mls/hr Protocol Titration 1 UNITS/HR Potassium Chloride/Dextrose/Sod Cl 1,000 mls @ 150 mls/hr 10/28/17 08:30 05:05 Potassium Chl 20 Meq In D5-1/2ns IV 10/29/17 08:29 Not Given .Q6H40M LANETTE Potassium Chloride/Dextrose/Sod Cl 1,000 mls @ 150 mls/hr 10/29/17 02:15 03:07 Potassium Chl 20 Meq In D5-Ns IV 10/30/17 02:11 150 mls/hr .Q6H40M LANETTE Administration Dextrose 1,000 mls @ 150 mls/hr 10/29/17 06:45 Dextrose 10% In Water IV 10/30/17 04:43 .Q6H40M LANETTE - Patient Studies Lab Studies: Lab Studies 10/29/17 10/29/17 10/29/17 Range/Units 06:31 05:00 04:36 Sodium 145 (132-148) mmol/l Potassium 3.9 (3.6-5.0) MMOL/L Chloride 108 H (98-107) mmol/L Carbon Dioxide 17 L (22-30) mmol/L Anion Gap 24 H (10-20) BUN 6 L (7-17) mg/dl Creatinine 0.5 L (0.7-1.2) mg/dl Est GFR ( Amer) > 60 Est GFR (Non-Af Amer) > 60 POC Glucose (mg/dL) 132 H 111 H (65-110) mg/dL Random Glucose 112 H (65-105) mg/dL Calcium 8.7 (8.4-10.2) mg/dL Phosphorus 2.3 L (2.5-4.5) mg/dl Total Bilirubin 0.2 (0.2-1.3) mg/dl AST 38 H D (14-36) U/L ALT 31 (9-52) U/L Alkaline Phosphatase 90 (38-126) U/L Total Protein 6.5 (6.3-8.2) G/DL Albumin 3.4 L (3.5-5.0) g/dL Globulin 3.1 (2.2-3.9) gm/dL Albumin/Globulin Ratio 1.1 (1.0-2.1) Triglycerides 251 H D (0-149) mg/DL Cholesterol 185 (0-199) mg/dL LDL Cholesterol Direct 122 (0-129) mg/dL HDL Cholesterol 35 (30-70) MG/DL TSH 3rd Generation 4.62 (0.46-4.68) mIU/ML Serum Ketones (NEGATIVE) 10/29/17 10/29/17 10/28/17 Range/Units 01:58 00:11 22:06 Sodium (132-148) mmol/l Potassium (3.6-5.0) MMOL/L Chloride (98-107) mmol/L Carbon Dioxide (22-30) mmol/L Anion Gap (10-20) BUN (7-17) mg/dl Creatinine (0.7-1.2) mg/dl Est GFR ( Amer) Est GFR (Non-Af Amer) POC Glucose (mg/dL) 170 H 198 H 130 H (65-110) mg/dL Random Glucose (65-105) mg/dL Calcium (8.4-10.2) mg/dL Phosphorus (2.5-4.5) mg/dl Total Bilirubin (0.2-1.3) mg/dl AST (14-36) U/L ALT (9-52) U/L Alkaline Phosphatase (38-126) U/L Total Protein (6.3-8.2) G/DL Albumin (3.5-5.0) g/dL Globulin (2.2-3.9) gm/dL Albumin/Globulin Ratio (1.0-2.1) Triglycerides (0-149) mg/DL Cholesterol (0-199) mg/dL LDL Cholesterol Direct (0-129) mg/dL HDL Cholesterol (30-70) MG/DL TSH 3rd Generation (0.46-4.68) mIU/ML Serum Ketones (NEGATIVE) 10/28/17 10/28/17 10/28/17 Range/Units 20:08 18:05 16:08 Sodium (132-148) mmol/l Potassium (3.6-5.0) MMOL/L Chloride (98-107) mmol/L Carbon Dioxide (22-30) mmol/L Anion Gap (10-20) BUN (7-17) mg/dl Creatinine (0.7-1.2) mg/dl Est GFR ( Amer) Est GFR (Non-Af Amer) POC Glucose (mg/dL) 171 H 227 H 194 H (65-110) mg/dL Random Glucose (65-105) mg/dL Calcium (8.4-10.2) mg/dL Phosphorus (2.5-4.5) mg/dl Total Bilirubin (0.2-1.3) mg/dl AST (14-36) U/L ALT (9-52) U/L Alkaline Phosphatase (38-126) U/L Total Protein (6.3-8.2) G/DL Albumin (3.5-5.0) g/dL Globulin (2.2-3.9) gm/dL Albumin/Globulin Ratio (1.0-2.1) Triglycerides (0-149) mg/DL Cholesterol (0-199) mg/dL LDL Cholesterol Direct (0-129) mg/dL HDL Cholesterol (30-70) MG/DL TSH 3rd Generation (0.46-4.68) mIU/ML Serum Ketones (NEGATIVE) 10/28/17 10/28/17 10/28/17 Range/Units 14:20 12:58 12:23 Sodium 140 (132-148) mmol/l Potassium 3.7 (3.6-5.0) MMOL/L Chloride 107 (98-107) mmol/L Carbon Dioxide 9 L* D (22-30) mmol/L Anion Gap 28 H (10-20) BUN 8 (7-17) mg/dl Creatinine 0.5 L (0.7-1.2) mg/dl Est GFR ( Amer) > 60 Est GFR (Non-Af Amer) > 60 POC Glucose (mg/dL) 196 H 185 H (65-110) mg/dL Random Glucose 150 H (65-105) mg/dL Calcium 8.4 (8.4-10.2) mg/dL Phosphorus (2.5-4.5) mg/dl Total Bilirubin 0.3 (0.2-1.3) mg/dl AST 30 (14-36) U/L ALT 27 (9-52) U/L Alkaline Phosphatase 75 (38-126) U/L Total Protein 6.0 L (6.3-8.2) G/DL Albumin 3.0 L D (3.5-5.0) g/dL Globulin 2.9 (2.2-3.9) gm/dL Albumin/Globulin Ratio 1.0 (1.0-2.1) Triglycerides (0-149) mg/DL Cholesterol (0-199) mg/dL LDL Cholesterol Direct (0-129) mg/dL HDL Cholesterol (30-70) MG/DL TSH 3rd Generation (0.46-4.68) mIU/ML Serum Ketones (NEGATIVE) 10/28/17 10/28/17 10/28/17 Range/Units 10:06 08:35 01:26 Sodium (132-148) mmol/l Potassium (3.6-5.0) MMOL/L Chloride (98-107) mmol/L Carbon Dioxide (22-30) mmol/L Anion Gap (10-20) BUN (7-17) mg/dl Creatinine (0.7-1.2) mg/dl Est GFR ( Amer) Est GFR (Non-Af Amer) POC Glucose (mg/dL) 320 H 176 H (65-110) mg/dL Random Glucose (65-105) mg/dL Calcium (8.4-10.2) mg/dL Phosphorus (2.5-4.5) mg/dl Total Bilirubin (0.2-1.3) mg/dl AST (14-36) U/L ALT (9-52) U/L Alkaline Phosphatase (38-126) U/L Total Protein (6.3-8.2) G/DL Albumin (3.5-5.0) g/dL Globulin (2.2-3.9) gm/dL Albumin/Globulin Ratio (1.0-2.1) Triglycerides (0-149) mg/DL Cholesterol (0-199) mg/dL LDL Cholesterol Direct (0-129) mg/dL HDL Cholesterol (30-70) MG/DL TSH 3rd Generation (0.46-4.68) mIU/ML Serum Ketones Moderate (NEGATIVE) Laboratory Results - last 24 hr 10/28/17 10/28/17 10/28/17 01:26 08:35 10:06 Sodium Potassium Chloride Carbon Dioxide Anion Gap BUN Creatinine Est GFR ( Amer) Est GFR (Non-Af Amer) POC Glucose (mg/dL) 176 H 320 H Random Glucose Calcium Phosphorus Total Bilirubin AST ALT Alkaline Phosphatase Total Protein Albumin Globulin Albumin/Globulin Ratio Triglycerides Cholesterol LDL Cholesterol Direct HDL Cholesterol TSH 3rd Generation Serum Ketones Moderate 10/28/17 10/28/17 10/28/17 12:23 12:58 14:20 Sodium 140 Potassium 3.7 Chloride 107 Carbon Dioxide 9 L* D Anion Gap 28 H BUN 8 Creatinine 0.5 L Est GFR ( Amer) > 60 Est GFR (Non-Af Amer) > 60 POC Glucose (mg/dL) 185 H 196 H Random Glucose 150 H Calcium 8.4 Phosphorus Total Bilirubin 0.3 AST 30 ALT 27 Alkaline Phosphatase 75 Total Protein 6.0 L Albumin 3.0 L D Globulin 2.9 Albumin/Globulin Ratio 1.0 Triglycerides Cholesterol LDL Cholesterol Direct HDL Cholesterol TSH 3rd Generation Serum Ketones 10/28/17 10/28/17 10/28/17 16:08 18:05 20:08 Sodium Potassium Chloride Carbon Dioxide Anion Gap BUN Creatinine Est GFR ( Amer) Est GFR (Non-Af Amer) POC Glucose (mg/dL) 194 H 227 H 171 H Random Glucose Calcium Phosphorus Total Bilirubin AST ALT Alkaline Phosphatase Total Protein Albumin Globulin Albumin/Globulin Ratio Triglycerides Cholesterol LDL Cholesterol Direct HDL Cholesterol TSH 3rd Generation Serum Ketones 10/28/17 10/29/17 10/29/17 22:06 00:11 01:58 Sodium Potassium Chloride Carbon Dioxide Anion Gap BUN Creatinine Est GFR ( Amer) Est GFR (Non-Af Amer) POC Glucose (mg/dL) 130 H 198 H 170 H Random Glucose Calcium Phosphorus Total Bilirubin AST ALT Alkaline Phosphatase Total Protein Albumin Globulin Albumin/Globulin Ratio Triglycerides Cholesterol LDL Cholesterol Direct HDL Cholesterol TSH 3rd Generation Serum Ketones 10/29/17 10/29/17 10/29/17 04:36 05:00 06:31 Sodium 145 Potassium 3.9 Chloride 108 H Carbon Dioxide 17 L Anion Gap 24 H BUN 6 L Creatinine 0.5 L Est GFR ( Amer) > 60 Est GFR (Non-Af Amer) > 60 POC Glucose (mg/dL) 111 H 132 H Random Glucose 112 H Calcium 8.7 Phosphorus 2.3 L Total Bilirubin 0.2 AST 38 H D ALT 31 Alkaline Phosphatase 90 Total Protein 6.5 Albumin 3.4 L Globulin 3.1 Albumin/Globulin Ratio 1.1 Triglycerides 251 H D Cholesterol 185 LDL Cholesterol Direct 122 HDL Cholesterol 35 TSH 3rd Generation 4.62 Serum Ketones Fingerstick Blood Sugar Results: 132 Critical Care Progress Note - Nutrition Nutrition: Nutrition Category Date Time Status Consistent Carbohydrate [DIET] Diets 10/28/17 Breakfast Active
[2017-10-29 08:17] VITALS: RESP 19
[2017-10-29] MEDS ORDERED: Enoxaparin 40 mg Syringe SC SCH (09:00)
[2017-10-29] MEDS ORDERED: Promethazine/Cod 6.25mg-10mg/5ml Syr UD PO PRN (09:05)
[2017-10-29 12:24] VITALS: BP 119/74; TEMP 97.9; O2SAT 99
--- NOTE | 2017-10-29 15:16 | CP.CCUPN ---
CCU Subjective - Physician Review Subjective (Free Text): Patient appears increasingly upset over current therapeutic regimen, bloodwork frequency also reduced to accommodate patient. Patient now requesting to leave the hospital AMA. Advised patient that DKA has not yet completely resolved, and leaving the hospital prematurely in this way can cause a rebound, severe return of the acidotic disease process. Measures to re-institute the insulin pump are not yet resolved as well, since she states she is missing a part. Regardless, patient is adamant on leaving now and will make her own arrangements to f/u with Dr. Gallego as an outpatient as he states she lives across from her office. The appropriate forms for discharge against AMA were signed by the patient and a copy provided to the patient.
[2017-10-29 15:37] VITALS: PULSE 97
--- NOTE | 2017-10-30 00:54 | PN ---
DATE: ENDO FOLLOWUP NOTE LOCATION: In ICU room 421. This is a 26-year-old female with recent uncontrolled type 1 insulin dependent diabetes, presenting here with diabetic ketoacidosis and dehydration related to drug omission and very poor adherence to glucose monitoring and insulin administration at home. She was actually supposed to start her [employer] insulin pump, which was mailed to her in the fall of last year, but has yet to be started as the patient is very neglectful with her own self care and diabetic care and even self glucose monitoring and insulin administration. We will now be able to discontinue her insulin drip infusion as her CO2 is now 17 and switch her over to a more physiologic basal and bolus insulin regimen as noted. We will however continue the vigorous IV hydration with normal saline at 150 mL/hour as ordered. However, I was notified today that the patient signed out against medical advice and refusing further insulin management and IV hydration in the hospital. We will also discussed with the patient that she may have to find a tertiary center where she can be followed closely for diabetic care as she has also been very noncompliant with outpatient visits to my office as noted.. Monet Gallego MD
--- NOTE | 2017-10-30 01:46 | CP.PCM.PN ---
Subjective - Date & Time of Evaluation Date of Evaluation: 10/29/17 Time of Evaluation: 10:40 - Subjective Subjective: pt seen and examined, feeling lack of sleep, wants to get some sleep, overall feels well Objective - Vital Signs/Intake and Output Vital Signs (last 24 hours): Temp Pulse Resp BP Pulse Ox 97.9 F 97 H 19 119/74 99 10/29/17 12:00 10/29/17 14:00 10/29/17 12:00 10/29/17 14:00 10/29/17 12:00 Intake and Output: 10/29/17 10/30/17 18:59 06:59 Intake Total 704 Balance 704 - Labs Labs: 10/28/17 01:26 10/29/17 05:00 - Constitutional Appears: Non-toxic, No Acute Distress - Head Exam Head Exam: ATRAUMATIC, NORMAL INSPECTION - Eye Exam Eye Exam: Normal appearance Pupil Exam: NORMAL ACCOMODATION - ENT Exam ENT Exam: Mucous Membranes Moist - Neck Exam Neck Exam: Full ROM - Respiratory Exam Respiratory Exam: Clear to Ausculation Bilateral - Cardiovascular Exam Cardiovascular Exam: REGULAR RHYTHM - GI/Abdominal Exam GI & Abdominal Exam: Soft, Normal Bowel Sounds - Extremities Exam Extremities Exam: Full ROM, Normal Capillary Refill, Normal Inspection - Back Exam Back Exam: NORMAL INSPECTION - Neurological Exam Neurological Exam: Alert, Awake, Oriented x3 - Psychiatric Exam Psychiatric exam: Normal Affect - Skin Skin Exam: Dry, Intact, Normal Color, Warm Assessment and Plan - Assessment and Plan (Free Text) Assessment: 26 y/o with DKA -continue IVF, insulin drip
== END 2017-10-29 15:00 | disposition left against medical advice (07) | DRG 295 ==
LOC: H.ER 00:46 → H.ERHOLD 01:56 → H.ICU/CCU 04:18
PROVIDERS: ADMIT Internal Medicine; ATTEND Internal Medicine
DX: E10.10 Type 1 diabetes mellitus with ketoacidosis without coma (principal); E86.0 Dehydration; F17.210 Nicotine dependence, cigarettes, uncomplicated; Z79.4 Long term (current) use of insulin; Z91.14 Patient's other noncompliance with medication regimen

== ENCOUNTER 2017-11-03 21:04 | Inpatient (IN) | payer OTHER ==
[2017-11-03 21:05] VITALS: BMI 23.9
[2017-11-03] MEDS ORDERED: Sodium Chloride 0.9% 1,000 ML IV STA ×3 (21:33→23:31)
[2017-11-03 22:09] LABS: BASO # 0.1 K/uL (0.0-0.2); BASO % 0.9 % (0.0-2.0); EOS % 0.5 % (0.0-4.0); HEMOGLOBIN 13.1 g/dL (12.0-16.0); LYMPH # 1.4 K/uL (1.0-4.3); MEAN CELL VOLUME 88.2 fl (81.0-99.0); MEAN CORPUSCULAR HEMOGLOBIN 28.1 pg (27.0-31.0); MEAN CORPUSCULAR HGB CONC 31.9 g/dL (33.0-37.0); MEAN PLATELET VOLUME 6.6 fl (7.2-11.7); MONO # 0.3 K/uL (0.0-0.8); MONO % 4.8 % (0.0-10.0); NEUT # 4.7 K/uL (1.8-7.0); NEUT % 71.8 % (50.0-75.0); RBC 4.66 Mil/uL (3.80-5.20); RED CELL DISTRIBUTION WIDTH 14.7 % (11.5-14.5); WHITE BLOOD COUNT 6.5 K/uL (4.8-10.8)
[2017-11-03 22:20] LABS: ABG ALLEN TEST YES; ARTERIAL BLOOD GAS HCO3 9.8 mmol/L (21-28); ARTERIAL BLOOD GAS O2 SAT 100.8 % (95-98); ARTERIAL BLOOD GAS PCO2 13 mm/Hg (35-45); ARTERIAL BLOOD GAS PH 7.23 (7.35-7.45); ARTERIAL BLOOD GAS PO2 129 mm/Hg (80-100); ARTERIAL BLOOD GAS TCO2 5.8 mmol/L (22-28)
--- NOTE | 2017-11-03 22:23 | ED PDOC ---
HPI: Abdomen Time Seen by Provider: 11/03/17 21:21 Chief Complaint (Nursing): Weakness/Neurological Deficit Chief Complaint (Provider): Abdominal Pain History Per: Patient History/Exam Limitations: no limitations Onset/Duration Of Symptoms: Days (x1) Outside of [place] travel?: No Current Symptoms Are (Timing): Still Present Quality Of Discomfort: "Pain" Associated Symptoms: Vomiting. denies: Fever, Chest Pain Additional Complaint(s): 26 y/o female with a history of diabetes and ketoacidosis presents to the ED with abdominal pain. Patient is compliant with her insulin. She states she has been working long hours and has been stressed by the of her child' s father. Prior to arrival patient received Zofran and IV fluids in the field. She complains of weakness, vomiting but denies any CP, cough, SOB, or fever. Of note, patient is well known at [facility]. PMD:None provided Past Medical History Reviewed: Historical Data, Nursing Documentation, Vital Signs Vital Signs: Last Vital Signs Temp 98.1 F 11/03/17 21:11 Pulse 105 H 11/03/17 21:11 Resp 16 11/03/17 21:11 BP 122/72 11/03/17 21:11 Pulse Ox 100 11/03/17 22:32 - Medical History PMH: Bronchitis, Diabetes (type 1) Denies: Anxiety, Bipolar Disorder, Depression, HIV, Paranoia, Post Traumatic Stress Disorder, Chronic Kidney Disease, Schizophrenia - Surgical History Surgical History: No Surg Hx, (x2) - Family History Family History: States: Unknown Family Hx - Social History Current smoker - smoking cessation education provided: No Ex-Smoker (has not smoked in the last 12 months): No Alcohol: None Drugs: Denies - Immunization History Hx Tetanus Toxoid Vaccination: No Hx Influenza Vaccination: No Hx Pneumococcal Vaccination: No - Home Medications Home Medications: Ambulatory Orders Medication Instructions Recorded Insulin Lispro [humALOG] 20 - 30 unit SC ACTID 11/05/16 - Allergies Allergies/Adverse Reactions: Allergies Allergy/AdvReac Type Severity Reaction Status Date / Time No Known Allergies Allergy Verified 11/03/17 21:11 Review of Systems ROS Statement: Except As Marked, All Systems Reviewed And Found Negative Constitutional: Positive for: Weakness. Negative for: Fever Cardiovascular: Negative for: Chest Pain Respiratory: Negative for: Cough, Shortness of Breath Gastrointestinal: Positive for: Vomiting, Abdominal Pain Physical Exam - Reviewed Nursing Documentation Reviewed: Yes Vital Signs Reviewed: Yes - Physical Exam Appears: Positive for: Well, Non-toxic, No Acute Distress Head Exam: Positive for: ATRAUMATIC, NORMAL INSPECTION, NORMOCEPHALIC Skin: Positive for: Normal Color, Warm, Dry Eye Exam: Positive for: EOMI, Normal appearance, PERRL ENT: Positive for: Other (tacky mucous membranes) Neck: Positive for: Normal, Painless ROM, Supple Cardiovascular/Chest: Positive for: Tachycardia Respiratory: Positive for: Normal Breath Sounds. Negative for: Respiratory Distress Gastrointestinal/Abdominal: Positive for: Normal Exam, Soft Back: Positive for: Normal Inspection. Negative for: L CVA Tenderness, R CVA Tenderness, Vertebral Tenderness Extremity: Positive for: Normal ROM. Negative for: Pedal Edema, Deformity Neurologic/Psych: Positive for: Alert, Oriented (x3). Negative for: Motor/ Sensory Deficits - Laboratory Results Result Diagrams: 11/03/17 22:00 11/03/17 22:00 - ECG O2 Sat by Pulse Oximetry: 100 (RA) Pulse Ox Interpretation: Normal - Critical Care Total Time (In Min): 30 Medical Decision Making Medical Decision Making: Time: 21:11 Impression: 26 y/o female with acute nausea, vomiting, and abdominal pain with diabetes and ketoacidosis. Initial Plan: * CMP * Lipase State * Troponin * UDip * Test * Clotting Time Test * Prothrombin Time * Chest X-Ray * Insulin 6 units IV * IV Fluids * Glucose Check * Urinalysis * ABG shock panel 30 minutes of critical care time. Labs reviewed and were significant for marked metabolic acidosis as demonstrated by ABG and chemistry panel. Patient is also hypokalemic. Patient was discussed with Dr. Gil who agreed to admit patient to inpatient intensive care. Diagnosis is diabetic ketoacidosis. Scribe Attestation: Documented by Melanie Vigil acting as a scribe for Kevin Lucas MD. Scribe Attestation: All medical record entries made by the Scribe were at my direction and personally dictated by me. I have reviewed the chart and agree that the record accurately reflects my personal performance of the history, physical exam, medical decision making, and the department course for this patient. I have also personally directed, reviewed, and agree with the discharge instructions and disposition. Disposition - Clinical Impression Clinical Impression: DKA (diabetic ketoacidoses) - Patient ED Disposition Is Patient to be Admitted: Yes - Disposition Disposition Time: 22:36 Condition: GUARDED - Pt Status Changed To: Hospital Disposition Of: Inpatient - Admit Certification Admit to Inpatient:: After my assessment, the patient will require hospitalization for at least two midnights. This is because of the severity of symptoms shown, intensity of services needed, and/or the medical risk in this patient being treated as an outpatient.
[2017-11-03] MEDS ORDERED: Insulin Regular 100 units/ml IV ONE (22:27)
[2017-11-03] MEDS ORDERED: Potassium Chloride 20 mEq 50 ML IVPB ONE (22:39)
--- NOTE | 2017-11-03 22:39 | CP.PCM.CON ---
History of Present Illness - History of Present Illness History of Present Illness: CC/Reason for ICU: DKA HPI: This is a 26 y/o female with DM1 with recurrent admissions for DKA who presents to the ER with abd pain/n/v. Patient states she has been under stress due to family/social issues, and has not been completely compliant with her insulin regimen. She also notes that she has had some symptoms of an URTI including cough, but not SOB, f/c. ROS: 14 systems negative other than HPI MHx: DM1, recurrent DKA SHx: C-sec Allergies: NKDA Medications: per med rec Family Hx: Reviewed, no relevant findings Social: Lives with family, occ EtOH, does use tobacco Past Patient History - Infectious Disease Hx of Infectious Diseases: None - Tetanus Immunizations Tetanus Immunization: Unknown - Past Medical History & Family History Past Medical History?: Yes - Past Social History Alcohol: None Drugs: Denies - CARDIAC Hx Cardiac Disorders: No - PULMONARY Hx Bronchitis: Yes - NEUROLOGICAL Hx Neurological Disorder: No - HEENT Hx HEENT Problems: No - RENAL Hx Chronic Kidney Disease: No - ENDOCRINE/METABOLIC Hx Endocrine Disorders: Yes (type 1 DM) - HEMATOLOGICAL/ONCOLOGICAL Hx Human Immunodeficiency Virus (HIV): No - INTEGUMENTARY Hx Dermatological Problems: No - MUSCULOSKELETAL/RHEUMATOLOGICAL Hx Falls: No - GASTROINTESTINAL Hx Gastrointestinal Disorders: No - GENITOURINARY/GYNECOLOGICAL Hx Genitourinary Disorders: No - PSYCHIATRIC Hx Anxiety: No Hx Bipolar Disorder: No Hx Depression: No Hx Paranoia: No Hx Post Traumatic Stress Disorder: No Hx Schizophrenia: No - SURGICAL HISTORY Hx Surgeries: Yes Hx Section: Yes (x2) Other/Comment: rt thigh abcess I&D (2006) / insulin pump - ANESTHESIA Hx Anesthesia: Yes Hx Anesthesia Reactions: No Hx Malignant Hyperthermia: No Meds Allergies/Adverse Reactions: Allergies Allergy/AdvReac Type Severity Reaction Status Date / Time No Known Allergies Allergy Verified 11/03/17 21:11 - Medications Medications: Current Medications Sodium Chloride (Sodium Chloride 0.9%) 1,000 mls @ 1,000 mls/hr IV .Q1H STA Stop: 11/03/17 23:26 Insulin Human Regular 100 (units/ Sodium Chloride) 101 mls @ 5.72 mls/hr IV .[id number] LANETTE; 0.1 UNITS/KG/HR PRN Reason: Protocol Physical Exam - Constitutional Appears: No Acute Distress - Head Exam Head Exam: ATRAUMATIC, NORMOCEPHALIC - Eye Exam Eye Exam: EOMI, PERRL - ENT Exam ENT Exam: Mucous Membranes Dry - Neck Exam Neck exam: Positive for: Full Rom - Respiratory Exam Respiratory Exam: Clear to Auscultation Bilateral, NORMAL BREATHING PATTERN - Cardiovascular Exam Cardiovascular Exam: REGULAR RHYTHM, +S1, +S2 - GI/Abdominal Exam GI & Abdominal Exam: Normal Bowel Sounds, Soft, Tenderness - Extremities Exam Extremities exam: Positive for: full ROM, normal inspection - Neurological Exam Neurological exam: Alert, CN II-XII Intact, Oriented x3 - Psychiatric Exam Psychiatric exam: Normal Affect, Normal Mood - Skin Skin Exam: Dry, Warm Results - Vital Signs Recent Vital Signs: Last Vital Signs Temp 98.1 F 11/03/17 21:11 Pulse 105 H 11/03/17 21:11 Resp 16 11/03/17 21:11 BP 122/72 11/03/17 21:11 Pulse Ox 100 11/03/17 22:32 - Labs Result Diagrams: 11/03/17 22:00 11/03/17 22:00 Labs: Laboratory Results - last 24 hr 11/03/17 11/03/17 11/03/17 22:00 22:00 22:17 WBC 6.5 RBC 4.66 Hgb 13.1 Hct 41.1 MCV 88.2 D MCH 28.1 MCHC 31.9 L RDW 14.7 H Plt Count 447 H D MPV 6.6 L Neut % (Auto) 71.8 Lymph % (Auto) 22.0 Pettis % (Auto) 4.8 Eos % (Auto) 0.5 Baso % (Auto) 0.9 Neut # (Auto) 4.7 Lymph # (Auto) 1.4 Pettis # (Auto) 0.3 Eos # (Auto) 0.0 Baso # (Auto) 0.1 pCO2 13 L* pO2 129 H HCO3 9.8 L* ABG pH 7.23 L ABG Total CO2 5.8 L ABG O2 Saturation 100.8 H ABG Base Excess -19.4 L Rivera Test Yes ABG Potassium 3.2 L A-a O2 Difference 4.0 Sodium 135.0 Chloride 106.0 Glucose 120 H Lactate 5.7 H* FiO2 21.0 Crit Value Called To Kevin wisdom md Crit Value Called By [id number] Crit Value Read Back Y Blood Gas Notified Time 2220 Troponin I < 0.0120 Arterial Blood Potassium 3.2 L Assessment & Plan (1) DKA (diabetic ketoacidoses) Assessment and Plan: 26 y/o female with DM1 presenting again with DKA due to medical noncompliance. Patient does not appear to have any significant signs of bacterial infection or other acute condition leading to DKA other than the med noncompliance at this time. -NPO, continue IVF -Insulin gtt with qhour accuchecks -Repeat BMP at MN and again in AM -Repeat ABG in AM -Consider CXR if patient shows any significant signs/symptoms of worsening respiratory infection -SCDs for DVT PPx Critical care time: 40 min Status: Acute (2) DVT prophylaxis Status: Acute
[2017-11-03] MEDS ORDERED: KCL 40MEQ/NS 1L 1,000 ML IV SCH (22:45)
[2017-11-03 22:54] LABS: ALB/GLOB RATIO 1.1 (1.0-2.1); ALBUMIN 4.3 g/dL (3.5-5.0); ALT/SGPT 33 U/L (9-52); AST/SGOT 29 U/L (14-36); BLOOD UREA NITROGEN 11 mg/dl (7-17); CALCIUM 9.3 mg/dL (8.4-10.2); GFR AFRICAN-AMERICAN > 60; GFR NON-AFRICAN AMERICAN > 60; LIPASE 56 U/L (23-300)
[2017-11-03] MEDS ORDERED: Insulin Regular 100 units/ml ONE (23:19)
[2017-11-03] MEDS ORDERED: Potassium Chloride 20 mEq 100 ML ONE (23:20)
[2017-11-03] MEDS: Dextrose 50% SYRINGE Inj (50 ml) IVP PRN (23:40)
[2017-11-04 00:15] LABS: PARTIAL THROMBOPLASTIN TIME 25.6 Seconds (25.6-37.1); PROTHROMBIN TIME 11.5 Seconds (9.8-13.1)
[2017-11-04] MEDS ORDERED: Potassium Chl 40 mEq in D5-1/2 1,000 ML IV SCH (01:15)
[2017-11-04 05:24] LABS: HEMOGLOBIN 11.1 g/dL (12.0-16.0); MEAN CORPUSCULAR HGB CONC 32.2 g/dL (33.0-37.0); RBC 3.96 Mil/uL (3.80-5.20); RED CELL DISTRIBUTION WIDTH 15.2 % (11.5-14.5); WHITE BLOOD COUNT 5.9 K/uL (4.8-10.8)
[2017-11-04 05:51] LABS: BLOOD UREA NITROGEN 9 mg/dl (7-17); CALCIUM 8.5 mg/dL (8.4-10.2); GFR AFRICAN-AMERICAN > 60; GFR NON-AFRICAN AMERICAN > 60
[2017-11-04] MEDS: Insulin Regular 100 UNITS in Sodium Chloride 0.9% 100 ML IV SCH (07:10)
--- NOTE | 2017-11-04 07:19 | CP.CCUPN ---
CCU Subjective - Physician Review Subjective (Free Text): 11/04/17 07:17Sleeping, appears depressed, but mental status otherwise intact. Other VS and I/Os reviewed. ROS: No other pertinent negs or positives on 10+ system review. PMSFH: All other Nursing and physician documentation reviewed to date; no new pertinent info noted relevant to current medical problems. EXAM- HEENT: no icterus, no gaze preference, pupils 3 mm equal and reactive, no icterus NECK: No JVD, supple, carotids equal upstroke bilat/no bruits CHEST: decreased BS bases, no wheezes audible HEART: regular distant, tachy S1S2, no rubs. ABD: soft, no distention, no tympany, no palp tenderness, BS hypoactive. EXT: no edema. No peripheral/ digital cyanosis, no calf tenderness or palpable cords, distal pulses intact and symmetrical. NEURO: no gross focal motor defictis SKIN: no rashes, warm and dry. LABS: WBC= 5.9 HGB= 11.1 PLTs= 376 K Na= 140 K= 4.2 CL= 105 HCO3= 8 BUN/Cr= 9/0.6 BS= 384 CXR: clear ( my interp) IMPRESSION / MAJOR PROBLEMS NOW: 1. DKA 2 medication non-compliance 2. Cough 2 Hyper-reactive airways disease post- URI PLAN: 1. Continue Insulin drip, changed fluid components; continue until anion gap normalizes and / or serum bicarb exceeds 20. 2. Serial lactate monitoring, no other source if infection or severe sepsis noted. 3. PO food intake with mod carb consistency diet as tolerated. 4. DuoNebs for cough, already on DMP. Consider inhaled corticosteroids. 5. Endocrine eval. Check repeat Lipid profile. CCU Objective - Vital Signs / Intake & Output Vital Signs (Last 4 hours): Vital Signs Temp Pulse Resp BP Pulse Ox 11/04/17 06:00 114 H 22 120/57 L 99 11/04/17 04:00 98.5 F 108 H 22 112/56 L 99 Intake and Output (Last 8hrs): Intake & Output 11/03/17 11/04/17 11/04/17 22:59 06:59 14:59 Intake Total 600 Balance 600 Weight 125 lb Intake: IV 600 Other: # Voids Urine, Voided 2
[2017-11-04] MEDS: Albuterol-Ipratrop 3 mg / 0.5 (3 ml) UD INH SCH ×4 (07:46→20:05)
--- NOTE | 2017-11-04 10:12 | RAD ---
HISTORY: admit COMPARISON: 10/28/2017 FINDINGS: LUNGS: No active pulmonary disease. PLEURA: No significant pleural effusion identified, no pneumothorax apparent. CARDIOVASCULAR: Normal. OSSEOUS STRUCTURES: No significant abnormalities. VISUALIZED UPPER ABDOMEN: Normal. OTHER FINDINGS: None. IMPRESSION: No active disease.
--- NOTE | 2017-11-04 10:42 | CP.PCM.CON ---
History of Present Illness - History of Present Illness History of Present Illness: Psychiatry consult note CC: Depression HPI: 26 yo female w/ h/o DM1, recurrent admissions for DKA, presented to the ER w/ abd pain/n/v, now in ICU for treatment of DKA. Patient reports that she has been depressed and anxious in the context of the recent of her . She reports that she does not her medications regularly due to prioritizing other people's needed. She denies passive or active suicidal ideation/plan/ intent. No AH/VH/paranoia/delusions. She reports that she feels she would benefit from treatment w/ antidepressants at this time. 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 MSE: A + O x 3, calm, cooperative, sleepy due to acute medical issues, fair eye contact, mood/affect- depressed, thought content- no delusions, thought process - linear/coherent, no AH/VH/SI/HI; fair I/J Impression: 26 yo female admitted w/ DKA, presents with worsening depression in the context of the recent of the -Recommend to start Zoloft 25 mg PO Daily and titrate up to 50 mg PO Daily -No acute psychiatric admission indicated at this time; no 1:1 indicated for psychiatric reasons -Would recommend outpatient psychiatric follow-up upon discharge Past Patient History - Infectious Disease Hx of Infectious Diseases: None - Tetanus Immunizations Tetanus Immunization: Unknown - Past Medical History & Family History Past Medical History?: Yes - Past Social History Smoking Status: Light Smoker < 10 Cigarettes Daily - CARDIAC Hx Cardiac Disorders: No - PULMONARY Hx Bronchitis: Yes - NEUROLOGICAL Hx Neurological Disorder: No - HEENT Hx HEENT Problems: No - RENAL Hx Chronic Kidney Disease: No - ENDOCRINE/METABOLIC Hx Endocrine Disorders: Yes (type 1 DM) - HEMATOLOGICAL/ONCOLOGICAL Hx Human Immunodeficiency Virus (HIV): No - INTEGUMENTARY Hx Dermatological Problems: No - MUSCULOSKELETAL/RHEUMATOLOGICAL Hx Falls: No - GASTROINTESTINAL Hx Gastrointestinal Disorders: No - GENITOURINARY/GYNECOLOGICAL Hx Genitourinary Disorders: No - PSYCHIATRIC Hx Anxiety: No Hx Bipolar Disorder: No Hx Depression: No Hx Paranoia: No Hx Post Traumatic Stress Disorder: No Hx Schizophrenia: No Hx Substance Use: No - SURGICAL HISTORY Hx Surgeries: Yes Hx Section: Yes (x2) Other/Comment: rt thigh abcess I&D (2006) / insulin pump - ANESTHESIA Hx Anesthesia: Yes Hx Anesthesia Reactions: No Hx Malignant Hyperthermia: No Meds Allergies/Adverse Reactions: Allergies Allergy/AdvReac Type Severity Reaction Status Date / Time No Known Allergies Allergy Verified 11/03/17 21:11 - Medications Medications: Current Medications Albuterol/Ipratropium (Duoneb 3 Mg/0.5 Mg (3 Ml) Ud) 3 ml INH RQID LANETTE Last Admin: 11/04/17 07:46 Dose: 3 ml Dextrose (Dextrose 50% Inj) 50 ml IVP ONCE PRN PRN Reason: if ser gluc below 70 Last Admin: 11/03/17 23:40 Dose: 50 ml Guaifenesin/Dextromethorphan (Robitussin Dm) 5 ml PO Q4 PRN PRN Reason: Cough Insulin Human Regular 100 (units/ Sodium Chloride) 101 mls @ 5.72 mls/hr IV .[id number] LANETTE; 0.1 UNITS/KG/HR PRN Reason: Protocol Last Titration: 11/04/17 09:00 Dose: 0.08 units/kg/hr, 4.58 mls/hr Oral Electrolytes (Kcl 40meq/ 0.9% 1l) 1,000 mls @ 150 mls/hr IV .[id number] LANETTE Potassium Chloride/Dextrose/Sod Cl (Potassium Chl 40 Meq In D5-1/2ns) 1,000 mls @ 125 mls/hr IV .Q8H LANETTE Stop: 11/05/17 01:11 Last Admin: 11/04/17 01:21 Dose: 125 mls/hr Metoclopramide HCl (Reglan) 10 mg IVP Q6H PRN PRN Reason: Nausea/Vomiting Last Admin: 11/04/17 09:41 Dose: 10 mg Results - Vital Signs Recent Vital Signs: Last Vital Signs Temp 98.2 F 11/04/17 08:00 Pulse 108 H 11/04/17 07:46 Resp 22 11/04/17 06:00 BP 120/57 L 11/04/17 06:00 Pulse Ox 99 11/04/17 06:00 - Labs Result Diagrams: 11/04/17 04:50 11/04/17 04:50 Labs: Laboratory Results - last 24 hr 11/03/17 11/03/17 11/03/17 22:00 22:00 22:17 WBC 6.5 RBC 4.66 Hgb 13.1 Hct 41.1 MCV 88.2 D MCH 28.1 MCHC 31.9 L RDW 14.7 H Plt Count 447 H D MPV 6.6 L Neut % (Auto) 71.8 Lymph % (Auto) 22.0 [place] % (Auto) 4.8 Eos % (Auto) 0.5 Baso % (Auto) 0.9 Neut # (Auto) 4.7 Lymph # (Auto) 1.4 [place] # (Auto) 0.3 Eos # (Auto) 0.0 Baso # (Auto) 0.1 PT INR APTT pCO2 13 L* pO2 129 H HCO3 9.8 L* ABG pH 7.23 L ABG Total CO2 5.8 L ABG O2 Saturation 100.8 H ABG Base Excess -19.4 L Rivera Test Yes ABG Potassium 3.2 L A-a O2 Difference 4.0 Glucose 120 H Lactate 5.7 H* FiO2 21.0 Crit Value Called To Kevin wisdom md Crit Value Called By 6088 Crit Value Read Back Y Blood Gas Notified Time 2220 Sodium 144 135.0 Potassium 3.4 L Chloride 105 106.0 Carbon Dioxide < 5 L* D Anion Gap 37 H BUN 11 Creatinine 0.7 Est GFR ( Amer) > 60 Est GFR (Non-Af Amer) > 60 POC Glucose (mg/dL) Random Glucose 170 H Calcium 9.3 Total Bilirubin 0.5 AST 29 ALT 33 Alkaline Phosphatase 113 Troponin I < 0.0120 Total Protein 8.3 H Albumin 4.3 Globulin 4.0 H Albumin/Globulin Ratio 1.1 Lipase 56 Arterial Blood Potassium 3.2 L 11/03/17 11/03/17 11/04/17 22:21 23:38 00:00 WBC RBC Hgb Hct MCV MCH MCHC RDW Plt Count MPV Neut % (Auto) Lymph % (Auto) [place] % (Auto) Eos % (Auto) Baso % (Auto) Neut # (Auto) Lymph # (Auto) [place] # (Auto) Eos # (Auto) Baso # (Auto) PT 11.5 INR 1.0 APTT 25.6 pCO2 pO2 HCO3 ABG pH ABG Total CO2 ABG O2 Saturation ABG Base Excess Rivera Test ABG Potassium A-a O2 Difference Glucose Lactate FiO2 Crit Value Called To Crit Value Called By Crit Value Read Back Blood Gas Notified Time Sodium Potassium Chloride Carbon Dioxide Anion Gap BUN Creatinine Est GFR ( Amer) Est GFR (Non-Af Amer) POC Glucose (mg/dL) 53 L 151 H Random Glucose Calcium Total Bilirubin AST ALT Alkaline Phosphatase Troponin I Total Protein Albumin Globulin Albumin/Globulin Ratio Lipase Arterial Blood Potassium 11/04/17 11/04/17 11/04/17 01:01 02:01 03:05 WBC RBC Hgb Hct MCV MCH MCHC RDW Plt Count MPV Neut % (Auto) Lymph % (Auto) [place] % (Auto) Eos % (Auto) Baso % (Auto) Neut # (Auto) Lymph # (Auto) [place] # (Auto) Eos # (Auto) Baso # (Auto) PT INR APTT pCO2 pO2 HCO3 ABG pH ABG Total CO2 ABG O2 Saturation ABG Base Excess Rivera Test ABG Potassium A-a O2 Difference Glucose Lactate FiO2 Crit Value Called To Crit Value Called By Crit Value Read Back Blood Gas Notified Time Sodium Potassium Chloride Carbon Dioxide Anion Gap BUN Creatinine Est GFR ( Amer) Est GFR (Non-Af Amer) POC Glucose (mg/dL) 53 L 66 158 H Random Glucose Calcium Total Bilirubin AST ALT Alkaline Phosphatase Troponin I Total Protein Albumin Globulin Albumin/Globulin Ratio Lipase Arterial Blood Potassium 11/04/17 11/04/17 11/04/17 04:50 04:50 05:09 WBC 5.9 RBC 3.96 Hgb 11.1 L D Hct 34.5 MCV 87.0 MCH 28.0 MCHC 32.2 L RDW 15.2 H Plt Count 376 MPV Neut % (Auto) Lymph % (Auto) [place] % (Auto) Eos % (Auto) Baso % (Auto) Neut # (Auto) Lymph # (Auto) [place] # (Auto) Eos # (Auto) Baso # (Auto) PT INR APTT pCO2 pO2 HCO3 ABG pH ABG Total CO2 ABG O2 Saturation ABG Base Excess Rivera Test ABG Potassium A-a O2 Difference Glucose Lactate FiO2 Crit Value Called To Crit Value Called By Crit Value Read Back Blood Gas Notified Time Sodium 140 Potassium 4.2 Chloride 105 Carbon Dioxide 8 L* D Anion Gap 31 H BUN 9 Creatinine 0.6 L Est GFR ( Amer) > 60 Est GFR (Non-Af Amer) > 60 POC Glucose (mg/dL) 350 H Random Glucose 384 H Calcium 8.5 Total Bilirubin AST ALT Alkaline Phosphatase Troponin I Total Protein Albumin Globulin Albumin/Globulin Ratio Lipase Arterial Blood Potassium 11/04/17 11/04/17 11/04/17 06:07 06:51 07:58 WBC RBC Hgb Hct MCV MCH MCHC RDW Plt Count MPV Neut % (Auto) Lymph % (Auto) [place] % (Auto) Eos % (Auto) Baso % (Auto) Neut # (Auto) Lymph # (Auto) [place] # (Auto) Eos # (Auto) Baso # (Auto) PT INR APTT pCO2 pO2 HCO3 ABG pH ABG Total CO2 ABG O2 Saturation ABG Base Excess Rivera Test ABG Potassium A-a O2 Difference Glucose Lactate FiO2 Crit Value Called To Crit Value Called By Crit Value Read Back Blood Gas Notified Time Sodium Potassium Chloride Carbon Dioxide Anion Gap BUN Creatinine Est GFR ( Amer) Est GFR (Non-Af Amer) POC Glucose (mg/dL) 391 H 408 H* 427 H* Random Glucose Calcium Total Bilirubin AST ALT Alkaline Phosphatase Troponin I Total Protein Albumin Globulin Albumin/Globulin Ratio Lipase Arterial Blood Potassium 11/04/17 09:15 WBC RBC Hgb Hct MCV MCH MCHC RDW Plt Count MPV Neut % (Auto) Lymph % (Auto) [place] % (Auto) Eos % (Auto) Baso % (Auto) Neut # (Auto) Lymph # (Auto) [place] # (Auto) Eos # (Auto) Baso # (Auto) PT INR APTT pCO2 pO2 HCO3 ABG pH ABG Total CO2 ABG O2 Saturation ABG Base Excess Rivera Test ABG Potassium A-a O2 Difference Glucose Lactate FiO2 Crit Value Called To Crit Value Called By Crit Value Read Back Blood Gas Notified Time Sodium Potassium Chloride Carbon Dioxide Anion Gap BUN Creatinine Est GFR ( Amer) Est GFR (Non-Af Amer) POC Glucose (mg/dL) 323 H Random Glucose Calcium Total Bilirubin AST ALT Alkaline Phosphatase Troponin I Total Protein Albumin Globulin Albumin/Globulin Ratio Lipase Arterial Blood Potassium
--- NOTE | 2017-11-04 13:29 | CP.PCM.HP ---
History of Present Illness - History of Present Illness History of Present Illness: CC: Abdominal pain. 26 y/o F, Multiples hospital admissions for Hx of DKA, last discharged from [facility] on 10/29/17, Pt signed AMA. Yesterday, 11/03/17, Pt returned to ER [facility], [place] for same symptom of hyperglycemia, also c/o of acute generalized abdominal pain, severe intensity, associated with nausea and vomiting (non bloody, non bilious, no diarrhea), with no relief. Worsening symptoms: In the field accucheck was 343, and was Tx with Zofram 4 mg IV, NS IV. Also c/o of Severe Depression 2nd to recent of her and mild Cough. Aggravated factor: Pt Not in complete compliance with her Insulin regimen. PMHx: DM type 1, DKA, Hx of Bronchitis. Pt denied: Fever, chills, diarrhea, CP, palpitation, dizziness, syncope, SOB, suicidal intention, urinary symptoms, sick contact, recent travel out of [facility]. CXR: No active disease. Present on Admission - Present on Admission Any Indicators Present on Admission: Yes History of Uncontrolled Diabetes: Yes Review of Systems - Constitutional Constitutional: Weakness (2nd to clinical condition.) - EENT Eyes: Other (negative) Ears: Other (negative) Nose/Mouth/Throat: Other (negative) - Cardiovascular Cardiovascular: Rapid Heart Rate - Respiratory Respiratory: Cough - Gastrointestinal Gastrointestinal: Abdominal Pain, Nausea, Vomiting - Genitourinary Genitourinary: Other (negative) - Musculoskeletal Musculoskeletal: Other (negative) - Integumentary Integumentary: Other (negative) - Neurological Neurological: Other (negative) - Psychiatric Psychiatric: Depression - Endocrine Endocrine: Other (negative) - Hematologic/Lymphatic Hematologic: Other (negative) Past Patient History - Infectious Disease Hx of Infectious Diseases: None - Tetanus Immunizations Tetanus Immunization: Unknown - Past Medical History & Family History Past Medical History?: Yes Pertinent Family History: Unknown - Past Social History Smoking Status: Light Smoker < 10 Cigarettes Daily Alcohol: Occasional Drugs: Denies Home Situation {Lives}: With Family - CARDIAC Hx Cardiac Disorders: No - PULMONARY Hx Respiratory Disorders: Yes Hx Bronchitis: Yes - NEUROLOGICAL Hx Neurological Disorder: No - HEENT Hx HEENT Problems: No - RENAL Hx Chronic Kidney Disease: No - ENDOCRINE/METABOLIC Hx Endocrine Disorders: Yes (type 1 DM) Hx Diabetes Mellitus Type 1: Yes - HEMATOLOGICAL/ONCOLOGICAL Hx Blood Disorders: No Hx Human Immunodeficiency Virus (HIV): No - INTEGUMENTARY Hx Dermatological Problems: No - MUSCULOSKELETAL/RHEUMATOLOGICAL Hx Musculoskeletal Disorders: No Hx Falls: No - GASTROINTESTINAL Hx Gastrointestinal Disorders: No - GENITOURINARY/GYNECOLOGICAL Hx Genitourinary Disorders: No - PSYCHIATRIC Hx Psychophysiologic Disorder: No Hx Anxiety: No Hx Bipolar Disorder: No Hx Depression: No Hx Paranoia: No Hx Post Traumatic Stress Disorder: No Hx Schizophrenia: No Hx Substance Use: No - SURGICAL HISTORY Hx Surgeries: Yes Hx Section: Yes (x2) Other/Comment: rt thigh abcess I&D (2006) / insulin pump - ANESTHESIA Hx Anesthesia: Yes Hx Anesthesia Reactions: No Hx Malignant Hyperthermia: No Meds Allergies/Adverse Reactions: Allergies Allergy/AdvReac Type Severity Reaction Status Date / Time No Known Allergies Allergy Verified 11/03/17 21:11 Physical Exam - Constitutional Appears: No Acute Distress - Head Exam Head Exam: NORMAL INSPECTION - Eye Exam Eye Exam: PERRL - ENT Exam ENT Exam: Normal Exam - Neck Exam Neck exam: Positive for: Normal Inspection - Respiratory Exam Respiratory Exam: NORMAL BREATHING PATTERN - Cardiovascular Exam Cardiovascular Exam: REGULAR RHYTHM - GI/Abdominal Exam GI & Abdominal Exam: Normal Bowel Sounds, Soft - Extremities Exam Extremities exam: Positive for: normal inspection - Back Exam Back exam: NORMAL INSPECTION - Neurological Exam Neurological exam: Alert, Oriented x3, Reflexes Normal - Psychiatric Exam Psychiatric exam: Depressed - Skin Skin Exam: Normal Color, Warm Results - Vital Signs Recent Vital Signs: Last Vital Signs Temp 98.3 F 11/04/17 12:00 Pulse 126 H 11/04/17 12:00 Resp 26 H 11/04/17 12:00 BP 113/52 L 11/04/17 12:00 Pulse Ox 99 11/04/17 12:00 reviewed Idris - Labs Result Diagrams: 11/04/17 04:50 11/04/17 04:50 Labs: Laboratory Results - last 24 hr 11/03/17 11/03/17 11/03/17 22:00 22:00 22:17 WBC 6.5 RBC 4.66 Hgb 13.1 Hct 41.1 MCV 88.2 D MCH 28.1 MCHC 31.9 L RDW 14.7 H Plt Count 447 H D MPV 6.6 L Neut % (Auto) 71.8 Lymph % (Auto) 22.0 [place] % (Auto) 4.8 Eos % (Auto) 0.5 Baso % (Auto) 0.9 Neut # (Auto) 4.7 Lymph # (Auto) 1.4 [place] # (Auto) 0.3 Eos # (Auto) 0.0 Baso # (Auto) 0.1 PT INR APTT pCO2 13 L* pO2 129 H HCO3 9.8 L* ABG pH 7.23 L ABG Total CO2 5.8 L ABG O2 Saturation 100.8 H ABG Base Excess -19.4 L Rivera Test Yes ABG Potassium 3.2 L A-a O2 Difference 4.0 Glucose 120 H Lactate 5.7 H* FiO2 21.0 Crit Value Called To Kevin wisdom md Crit Value Called By 6075 Crit Value Read Back Y Blood Gas Notified Time 2220 Sodium 144 135.0 Potassium 3.4 L Chloride 105 106.0 Carbon Dioxide < 5 L* D Anion Gap 37 H BUN 11 Creatinine 0.7 Est GFR ( Amer) > 60 Est GFR (Non-Af Amer) > 60 POC Glucose (mg/dL) Random Glucose 170 H Calcium 9.3 Total Bilirubin 0.5 AST 29 ALT 33 Alkaline Phosphatase 113 Troponin I < 0.0120 Total Protein 8.3 H Albumin 4.3 Globulin 4.0 H Albumin/Globulin Ratio 1.1 Lipase 56 Arterial Blood Potassium 3.2 L 11/03/17 11/03/17 11/04/17 22:21 23:38 00:00 WBC RBC Hgb Hct MCV MCH MCHC RDW Plt Count MPV Neut % (Auto) Lymph % (Auto) [place] % (Auto) Eos % (Auto) Baso % (Auto) Neut # (Auto) Lymph # (Auto) [place] # (Auto) Eos # (Auto) Baso # (Auto) PT 11.5 INR 1.0 APTT 25.6 pCO2 pO2 HCO3 ABG pH ABG Total CO2 ABG O2 Saturation ABG Base Excess Rivera Test ABG Potassium A-a O2 Difference Glucose Lactate FiO2 Crit Value Called To Crit Value Called By Crit Value Read Back Blood Gas Notified Time Sodium Potassium Chloride Carbon Dioxide Anion Gap BUN Creatinine Est GFR ( Amer) Est GFR (Non-Af Amer) POC Glucose (mg/dL) 53 L 151 H Random Glucose Calcium Total Bilirubin AST ALT Alkaline Phosphatase Troponin I Total Protein Albumin Globulin Albumin/Globulin Ratio Lipase Arterial Blood Potassium 11/04/17 11/04/17 11/04/17 01:01 02:01 03:05 WBC RBC Hgb Hct MCV MCH MCHC RDW Plt Count MPV Neut % (Auto) Lymph % (Auto) [place] % (Auto) Eos % (Auto) Baso % (Auto) Neut # (Auto) Lymph # (Auto) [place] # (Auto) Eos # (Auto) Baso # (Auto) PT INR APTT pCO2 pO2 HCO3 ABG pH ABG Total CO2 ABG O2 Saturation ABG Base Excess Rivera Test ABG Potassium A-a O2 Difference Glucose Lactate FiO2 Crit Value Called To Crit Value Called By Crit Value Read Back Blood Gas Notified Time Sodium Potassium Chloride Carbon Dioxide Anion Gap BUN Creatinine Est GFR ( Amer) Est GFR (Non-Af Amer) POC Glucose (mg/dL) 53 L 66 158 H Random Glucose Calcium Total Bilirubin AST ALT Alkaline Phosphatase Troponin I Total Protein Albumin Globulin Albumin/Globulin Ratio Lipase Arterial Blood Potassium 11/04/17 11/04/17 11/04/17 04:50 04:50 05:09 WBC 5.9 RBC 3.96 Hgb 11.1 L D Hct 34.5 MCV 87.0 MCH 28.0 MCHC 32.2 L RDW 15.2 H Plt Count 376 MPV Neut % (Auto) Lymph % (Auto) [place] % (Auto) Eos % (Auto) Baso % (Auto) Neut # (Auto) Lymph # (Auto) [place] # (Auto) Eos # (Auto) Baso # (Auto) PT INR APTT pCO2 pO2 HCO3 ABG pH ABG Total CO2 ABG O2 Saturation ABG Base Excess Rivera Test ABG Potassium A-a O2 Difference Glucose Lactate FiO2 Crit Value Called To Crit Value Called By Crit Value Read Back Blood Gas Notified Time Sodium 140 Potassium 4.2 Chloride 105 Carbon Dioxide 8 L* D Anion Gap 31 H BUN 9 Creatinine 0.6 L Est GFR ( Amer) > 60 Est GFR (Non-Af Amer) > 60 POC Glucose (mg/dL) 350 H Random Glucose 384 H Calcium 8.5 Total Bilirubin AST ALT Alkaline Phosphatase Troponin I Total Protein Albumin Globulin Albumin/Globulin Ratio Lipase Arterial Blood Potassium 11/04/17 11/04/17 11/04/17 06:07 06:51 07:58 WBC RBC Hgb Hct MCV MCH MCHC RDW Plt Count MPV Neut % (Auto) Lymph % (Auto) [place] % (Auto) Eos % (Auto) Baso % (Auto) Neut # (Auto) Lymph # (Auto) [place] # (Auto) Eos # (Auto) Baso # (Auto) PT INR APTT pCO2 pO2 HCO3 ABG pH ABG Total CO2 ABG O2 Saturation ABG Base Excess Rivera Test ABG Potassium A-a O2 Difference Glucose Lactate FiO2 Crit Value Called To Crit Value Called By Crit Value Read Back Blood Gas Notified Time Sodium Potassium Chloride Carbon Dioxide Anion Gap BUN Creatinine Est GFR ( Amer) Est GFR (Non-Af Amer) POC Glucose (mg/dL) 391 H 408 H* 427 H* Random Glucose Calcium Total Bilirubin AST ALT Alkaline Phosphatase Troponin I Total Protein Albumin Globulin Albumin/Globulin Ratio Lipase Arterial Blood Potassium 11/04/17 11/04/17 09:15 11:33 WBC RBC Hgb Hct MCV MCH MCHC RDW Plt Count MPV Neut % (Auto) Lymph % (Auto) [place] % (Auto) Eos % (Auto) Baso % (Auto) Neut # (Auto) Lymph # (Auto) [place] # (Auto) Eos # (Auto) Baso # (Auto) PT INR APTT pCO2 pO2 HCO3 ABG pH ABG Total CO2 ABG O2 Saturation ABG Base Excess Rivera Test ABG Potassium A-a O2 Difference Glucose Lactate FiO2 Crit Value Called To Crit Value Called By Crit Value Read Back Blood Gas Notified Time Sodium Potassium Chloride Carbon Dioxide Anion Gap BUN Creatinine Est GFR ( Amer) Est GFR (Non-Af Amer) POC Glucose (mg/dL) 323 H 124 H Random Glucose Calcium Total Bilirubin AST ALT Alkaline Phosphatase Troponin I Total Protein Albumin Globulin Albumin/Globulin Ratio Lipase Arterial Blood Potassium reviewed J.P. Assessment & Plan (1) DKA (diabetic ketoacidoses) Status: Acute Priority: High (2) Abdominal pain Status: Acute Priority: High (3) Type 1 diabetes Status: Chronic Priority: High - Assessment and Plan (Free Text) Plan: F/U ABG, MRSA screening, Potassium Chl, Insulin , Duoneb, Robitussin DM, Zolof and rest of Tx. Psychiatric consult appreciated. Endocrinology consult. - Date & Time Date: 11/04/17 Time: 10:15
[2017-11-04] MEDS ORDERED: Insulin Regular 100 units/ml IV ONE (17:09)
[2017-11-04] MEDS ORDERED: Sodium Chloride 0.9% 1,000 ML IV SCH (17:15)
[2017-11-04] MEDS: Potassium Ch 20mEq in D5-1/2NS 1,000 ML IV SCH (19:00)
[2017-11-05] MEDS: Potassium Ch 20mEq in D5-1/2NS 1,000 ML IV SCH ×5 (05:31→20:53)
[2017-11-05 05:32] LABS: BASO # 0.1 K/uL (0.0-0.2); BASO % 0.7 % (0.0-2.0); EOS # 0.1 K/uL (0.0-0.7); EOS % 0.7 % (0.0-4.0); HEMOGLOBIN 10.3 g/dL (12.0-16.0); LYMPH # 2.3 K/uL (1.0-4.3); LYMPH % 29.6 % (20.0-40.0); MEAN CELL VOLUME 86.4 fl (81.0-99.0); MEAN CORPUSCULAR HEMOGLOBIN 27.8 pg (27.0-31.0); MEAN CORPUSCULAR HGB CONC 32.2 g/dL (33.0-37.0); MEAN PLATELET VOLUME 6.5 fl (7.2-11.7); MONO # 0.6 K/uL (0.0-0.8); MONO % 7.8 % (0.0-10.0); NEUT # 4.7 K/uL (1.8-7.0); NEUT % 61.2 % (50.0-75.0); RBC 3.71 Mil/uL (3.80-5.20); RED CELL DISTRIBUTION WIDTH 14.8 % (11.5-14.5); WHITE BLOOD COUNT 7.8 K/uL (4.8-10.8)
[2017-11-05 05:47] LABS: ALB/GLOB RATIO 0.9 (1.0-2.1); ALBUMIN 2.9 g/dL (3.5-5.0); ALT/SGPT 23 U/L (9-52); AST/SGOT 26 U/L (14-36); BLOOD UREA NITROGEN 3 mg/dl (7-17); CALCIUM 8.2 mg/dL (8.4-10.2); GFR AFRICAN-AMERICAN > 60; GFR NON-AFRICAN AMERICAN > 60
[2017-11-05] MEDS: Albuterol-Ipratrop 3 mg / 0.5 (3 ml) UD INH SCH ×4 (07:32→19:13)
--- NOTE | 2017-11-05 07:48 | CP.CCUPN ---
CCU Subjective - Physician Review Subjective (Free Text): Less emotional today, still intermittently nauseated. Belching up acidic contents yesterday, improved today with initiation of PPis. Insulin intermittently stopped overnight as Nurses follow protocol. Other VS and I/Os reviewed. ROS: No other pertinent negs or positives on 10+ system review. PMSFH: All other Nursing and physician documentation reviewed to date; no new pertinent info noted relevant to current medical problems. EXAM- HEENT: no icterus, no gaze preference, pupils 3 mm equal and reactive, no icterus NECK: No JVD, supple, carotids equal upstroke bilat/no bruits CHEST: decreased BS bases, no wheezes audible HEART: regular distant, tachy S1S2, no rubs. ABD: soft, no distention, no tympany, no palp tenderness, BS hypoactive. EXT: no edema. No peripheral/ digital cyanosis, no calf tenderness or palpable cords, distal pulses intact and symmetrical. NEURO: no gross focal motor defictis SKIN: no rashes, warm and dry. LABS: WBC= 7.8 HGB= 10.3 PLTs= 282 K Na= 140 K= 3.5 CL= 108 HCO3= 10 BUN/Cr= 3/0.5 BS= 139 CXR: clear ( my interp) IMPRESSION / MAJOR PROBLEMS NOW: 1. DKA 2 medication non-compliance 2. Cough 2 Hyper-reactive airways post- URI PLAN: 1. Continue Insulin drip; changed fluid components; supplemental 2 liters of NSS given, continue aggressive IVFs and Insulin until anion gap normalizes and / or serum bicarb exceeds 20. 2. Serial lactate monitoring, no other source if infection or severe sepsis noted. 3. PO food intake with mod carb consistency diet as tolerated. 4. DuoNebs for cough. Consider inhaled corticosteroids if cough persists. 5. Endocrine eval. Check repeat Lipid profile. CCU Objective - Vital Signs / Intake & Output Vital Signs (Last 4 hours): Vital Signs Temp Pulse Resp BP Pulse Ox 11/05/17 06:00 109 H 17 105/58 L 100 11/05/17 04:00 98.2 F 100 H 17 116/58 L 91 L Intake and Output (Last 8hrs): Intake & Output 11/04/17 11/05/17 11/05/17 22:59 06:59 14:59 Intake Total 210 2000 Output Total 400 700 Balance -190 1300 Intake: IV 210 2000 Output: Urine 400 700 Urine, Voided 400 700 Other: # Voids Urine, Voided 1 1
--- NOTE | 2017-11-05 13:46 | CP.PCM.PN ---
Subjective - Date & Time of Evaluation Date of Evaluation: 11/05/17 Time of Evaluation: 12:30 - Subjective Subjective: F/U DKA Alert , no nausea , smiling , eating meals Objective - Vital Signs/Intake and Output Vital Signs (last 24 hours): Temp Pulse Resp BP Pulse Ox 97.6 F 87 25 H 106/57 L 99 11/05/17 08:00 11/05/17 08:00 11/05/17 08:00 11/05/17 08:00 11/05/17 08:00 Intake and Output: 11/05/17 11/05/17 06:59 18:59 Intake Total 2200 Output Total 1100 Balance 1100 - Medications Medications: Current Medications Albuterol/Ipratropium (Duoneb 3 Mg/0.5 Mg (3 Ml) Ud) 3 ml INH RQID LANETTE Last Admin: 11/05/17 11:45 Dose: 3 ml Dextrose (Dextrose 50% Inj) 50 ml IVP ONCE PRN PRN Reason: if ser gluc below 70 Last Admin: 11/03/17 23:40 Dose: 50 ml Guaifenesin/Dextromethorphan (Robitussin Dm) 5 ml PO Q4 PRN PRN Reason: Cough Insulin Human Regular 100 (units/ Sodium Chloride) 101 mls @ 5.72 mls/hr IV .[id number] LANETTE; 0.1 UNITS/KG/HR PRN Reason: Protocol Last Titration: 11/05/17 05:30 Dose: 0 units/kg/hr, 0 mls/hr Potassium Chloride/Dextrose/Sod Cl (Potassium Chl 20 Meq In D5-1/2ns) 1,000 mls @ 250 mls/hr IV .Q4H LANETTE Stop: 11/05/17 16:54 Last Admin: 11/05/17 10:39 Dose: 250 mls/hr Metoclopramide HCl (Reglan) 10 mg IVP Q6H PRN PRN Reason: Nausea/Vomiting Last Admin: 11/04/17 20:43 Dose: 10 mg Pantoprazole Sodium (Protonix Inj) 40 mg IVP Q12 LANETTE Last Admin: 11/05/17 10:00 Dose: 40 mg Sertraline HCl (Zoloft) 25 mg PO DAILY LANETTE Last Admin: 11/05/17 10:37 Dose: 25 mg - Labs Labs: 11/05/17 04:25 04/20/18 04:25 PT 11.5 Seconds (9.8-13.1) 11/03/17 22:21 INR 1.0 (0.9-1.2) 11/03/17 22:21 APTT 25.6 Seconds (25.6-37.1) 11/03/17 22:21 - Constitutional Appears: No Acute Distress - Head Exam Head Exam: NORMAL INSPECTION - Eye Exam Eye Exam: PERRL - ENT Exam ENT Exam: Normal Exam - Neck Exam Neck Exam: Normal Inspection - Respiratory Exam Respiratory Exam: Clear to Ausculation Bilateral - Cardiovascular Exam Cardiovascular Exam: REGULAR RHYTHM - GI/Abdominal Exam GI & Abdominal Exam: Soft, Normal Bowel Sounds - Back Exam Back Exam: NORMAL INSPECTION - Neurological Exam Neurological Exam: Alert, CN II-XII Intact, Oriented x3. absent: Motor Sensory Deficit - Psychiatric Exam Psychiatric exam: Normal Affect - Skin Skin Exam: Warm Assessment and Plan (1) DKA (diabetic ketoacidoses) Status: Acute (2) Abdominal pain Status: Resolved (3) Type 1 diabetes Status: Chronic - Assessment and Plan (Free Text) Plan: Patient on low Insulin drip 1U /min , BS controlloed , CO2 10 , Patient was seen by Psychiatric , on Zoloft , continue rest of treatment ICU Time: 31 min.
[2017-11-05] MEDS: Insulin Regular 100 UNITS in Sodium Chloride 0.9% 100 ML IV SCH (21:07)
[2017-11-05] MEDS ORDERED: Dextrose 50% SYRINGE Inj (50 ml) IVP ONE (22:23)
[2017-11-06] MEDS ORDERED: Potassium Chloride 20 MEQ in Dextrose 5%-0.45% NS 500 ML IV SCH (01:15)
[2017-11-06] MEDS: Potassium Ch 20mEq in D5-1/2NS 1,000 ML IV SCH ×3 (01:31→20:50)
[2017-11-06] MEDS: guaiFENesin DM 100 mg-10 mg/5 ml UD PO PRN (02:59)
[2017-11-06 06:21] LABS: BASO % 0.9 % (0.0-2.0); EOS # 0.1 K/uL (0.0-0.7); EOS % 2.7 % (0.0-4.0); HEMOGLOBIN 10.1 g/dL (12.0-16.0); LYMPH # 1.7 K/uL (1.0-4.3); LYMPH % 36.9 % (20.0-40.0); MEAN CELL VOLUME 85.6 fl (81.0-99.0); MEAN CORPUSCULAR HEMOGLOBIN 27.9 pg (27.0-31.0); MEAN CORPUSCULAR HGB CONC 32.6 g/dL (33.0-37.0); MEAN PLATELET VOLUME 6.8 fl (7.2-11.7); MONO # 0.3 K/uL (0.0-0.8); MONO % 7.1 % (0.0-10.0); NEUT # 2.4 K/uL (1.8-7.0); NEUT % 52.4 % (50.0-75.0); NRBC % 0.1 % (0.0-0.0); RBC 3.61 Mil/uL (3.80-5.20); RED CELL DISTRIBUTION WIDTH 14.8 % (11.5-14.5); WHITE BLOOD COUNT 4.6 K/uL (4.8-10.8)
[2017-11-06 06:31] LABS: BLOOD UREA NITROGEN < 2 mg/dl (7-17); CALCIUM 8.3 mg/dL (8.4-10.2); GFR AFRICAN-AMERICAN > 60; GFR NON-AFRICAN AMERICAN > 60
[2017-11-06] MEDS: Albuterol-Ipratrop 3 mg / 0.5 (3 ml) UD INH SCH ×4 (08:02→19:17)
--- NOTE | 2017-11-06 08:26 | CP.CCUPN ---
CCU Subjective - Physician Review Events Since Last Encounter (Free Text): 11/06/17 08:23 Patient awake, no distress, no fever, no vomiting, follow commands, events reviewed CCU Objective - Vital Signs / Intake & Output Vital Signs (Last 4 hours): Vital Signs Pulse Resp BP Pulse Ox 11/06/17 06:00 93 H 18 132/81 100 Intake and Output (Last 8hrs): Intake & Output 11/05/17 11/06/17 11/06/17 22:59 06:59 14:59 Intake Total 832 2360 Output Total 700 500 Balance 132 1860 Intake: IV 832 2000 Oral 360 Output: Urine 700 500 Urine, Voided 700 500 Other: # Voids Urine, Voided 2 1 - Physical Exam Head: Positive for: Atraumatic, Normocephalic Pupils: Positive for: PERRL Extroacular Muscles: Positive for: EOMI Conjunctiva: Positive for: Normal Mouth: Positive for: Moist Mucous Membranes Nose (External): Positive for: Atraumatic Neck: Positive for: Normal Range of Motion Respiratory/Chest: Positive for: Clear to Auscultation Cardiovascular: Positive for: Regular Rate and Rhythm Abdomen: Positive for: Normal Bowel Sounds Upper Extremity: Positive for: Normal Inspection Lower Extremity: Positive for: Normal Inspection Neurological: Positive for: GCS=15, Speech Normal Psychiatric: Positive for: Alert, Oriented x 3 - Medications Active Medications: Active Medications Generic Name Dose Route Start Last Admin Trade Name Freq PRN Reason Stop Dose Admin Albuterol/Ipratropium 3 ml 11/04/17 08:00 11/06/17 08:02 Duoneb 3 Mg/0.5 Mg (3 Ml) Ud INH 3 ml RQID LANETTE Administration Dextrose 50 ml 11/03/17 23:37 11/03/17 23:40 Dextrose 50% Inj IVP 50 ml ONCE PRN Administration if ser gluc below 70 Guaifenesin/Dextromethorphan 5 ml 11/03/17 23:02 11/06/17 02:59 Robitussin Dm PO 5 ml Q4 PRN Administration Cough Insulin Human Regular 100 101 mls @ 5.72 mls/hr 11/03/17 22:30 11/06/17 03:30 units/ Sodium Chloride IV 0.05 units/kg/hr .[id number] LANETTE 3 mls/hr Protocol Titration 0.1 UNITS/KG/HR Potassium Chloride/Dextrose/Sod Cl 1,000 mls @ 250 mls/hr 11/06/17 01:30 05:30 Potassium Chl 20 Meq In D5-1/2ns IV 250 mls/hr .Q4H LANETTE Administration Metoclopramide HCl 10 mg 11/03/17 22:46 11/04/17 20:43 Reglan IVP 10 mg Q6H PRN Administration Nausea/Vomiting Pantoprazole Sodium 40 mg 11/04/17 17:02 11/05/17 20:53 Protonix Inj IVP 40 mg Q12 LANETTE Administration Sertraline HCl 25 mg 11/05/17 09:00 11/05/17 10:37 Zoloft PO 25 mg DAILY LANETTE Administration - Patient Studies Lab Studies: Microbiology Studies 11/04/17 07:48 MRSA Culture (Admit) - Final Naris MRSA NOT DETECTED Lab Studies 11/06/17 11/06/17 11/06/17 Range/Units 08:16 05:30 05:30 WBC 4.6 L (4.8-10.8) K/uL RBC 3.61 L (3.80-5.20) Mil/uL Hgb 10.1 L (12.0-16.0) g/dL Hct 30.9 L (34.0-47.0) % MCV 85.6 (81.0-99.0) fl MCH 27.9 (27.0-31.0) pg MCHC 32.6 L (33.0-37.0) g/dL RDW 14.8 H (11.5-14.5) % Plt Count 281 (130-400) K/uL MPV 6.8 L (7.2-11.7) fl Neut % (Auto) 52.4 (50.0-75.0) % Lymph % (Auto) 36.9 (20.0-40.0) % [place] % (Auto) 7.1 (0.0-10.0) % Eos % (Auto) 2.7 (0.0-4.0) % Baso % (Auto) 0.9 (0.0-2.0) % Neut # (Auto) 2.4 (1.8-7.0) K/uL Lymph # (Auto) 1.7 (1.0-4.3) K/uL [place] # (Auto) 0.3 (0.0-0.8) K/uL Eos # (Auto) 0.1 (0.0-0.7) K/uL Baso # (Auto) 0.0 (0.0-0.2) K/uL Sodium 138 (132-148) mmol/l Potassium 3.7 (3.6-5.0) MMOL/L Chloride 102 (98-107) mmol/L Carbon Dioxide 16 L (22-30) mmol/L Anion Gap 24 H (10-20) BUN < 2 L (7-17) mg/dl Creatinine 0.5 L (0.7-1.2) mg/dl Est GFR ( Amer) > 60 Est GFR (Non-Af Amer) > 60 POC Glucose (mg/dL) 128 H (65-110) mg/dL Random Glucose 209 H (65-105) mg/dL Calcium 8.3 L (8.4-10.2) mg/dL 11/06/17 11/06/17 11/06/17 Range/Units 05:29 03:30 01:29 WBC (4.8-10.8) K/uL RBC (3.80-5.20) Mil/uL Hgb (12.0-16.0) g/dL Hct (34.0-47.0) % MCV (81.0-99.0) fl MCH (27.0-31.0) pg MCHC (33.0-37.0) g/dL RDW (11.5-14.5) % Plt Count (130-400) K/uL MPV (7.2-11.7) fl Neut % (Auto) (50.0-75.0) % Lymph % (Auto) (20.0-40.0) % [place] % (Auto) (0.0-10.0) % Eos % (Auto) (0.0-4.0) % Baso % (Auto) (0.0-2.0) % Neut # (Auto) (1.8-7.0) K/uL Lymph # (Auto) (1.0-4.3) K/uL [place] # (Auto) (0.0-0.8) K/uL Eos # (Auto) (0.0-0.7) K/uL Baso # (Auto) (0.0-0.2) K/uL Sodium (132-148) mmol/l Potassium (3.6-5.0) MMOL/L Chloride (98-107) mmol/L Carbon Dioxide (22-30) mmol/L Anion Gap (10-20) BUN (7-17) mg/dl Creatinine (0.7-1.2) mg/dl Est GFR ( Amer) Est GFR (Non-Af Amer) POC Glucose (mg/dL) 193 H 224 H 177 H (65-110) mg/dL Random Glucose (65-105) mg/dL Calcium (8.4-10.2) mg/dL 11/05/17 11/05/17 11/05/17 Range/Units 23:34 22:19 20:07 WBC (4.8-10.8) K/uL RBC (3.80-5.20) Mil/uL Hgb (12.0-16.0) g/dL Hct (34.0-47.0) % MCV (81.0-99.0) fl MCH (27.0-31.0) pg MCHC (33.0-37.0) g/dL RDW (11.5-14.5) % Plt Count (130-400) K/uL MPV (7.2-11.7) fl Neut % (Auto) (50.0-75.0) % Lymph % (Auto) (20.0-40.0) % [place] % (Auto) (0.0-10.0) % Eos % (Auto) (0.0-4.0) % Baso % (Auto) (0.0-2.0) % Neut # (Auto) (1.8-7.0) K/uL Lymph # (Auto) (1.0-4.3) K/uL [place] # (Auto) (0.0-0.8) K/uL Eos # (Auto) (0.0-0.7) K/uL Baso # (Auto) (0.0-0.2) K/uL Sodium (132-148) mmol/l Potassium (3.6-5.0) MMOL/L Chloride (98-107) mmol/L Carbon Dioxide (22-30) mmol/L Anion Gap (10-20) BUN (7-17) mg/dl Creatinine (0.7-1.2) mg/dl Est GFR ( Amer) Est GFR (Non-Af Amer) POC Glucose (mg/dL) 184 H 147 H 226 H (65-110) mg/dL Random Glucose (65-105) mg/dL Calcium (8.4-10.2) mg/dL 11/05/17 11/05/17 11/05/17 Range/Units 18:00 15:57 14:32 WBC (4.8-10.8) K/uL RBC (3.80-5.20) Mil/uL Hgb (12.0-16.0) g/dL Hct (34.0-47.0) % MCV (81.0-99.0) fl MCH (27.0-31.0) pg MCHC (33.0-37.0) g/dL RDW (11.5-14.5) % Plt Count (130-400) K/uL MPV (7.2-11.7) fl Neut % (Auto) (50.0-75.0) % Lymph % (Auto) (20.0-40.0) % [place] % (Auto) (0.0-10.0) % Eos % (Auto) (0.0-4.0) % Baso % (Auto) (0.0-2.0) % Neut # (Auto) (1.8-7.0) K/uL Lymph # (Auto) (1.0-4.3) K/uL [place] # (Auto) (0.0-0.8) K/uL Eos # (Auto) (0.0-0.7) K/uL Baso # (Auto) (0.0-0.2) K/uL Sodium (132-148) mmol/l Potassium (3.6-5.0) MMOL/L Chloride (98-107) mmol/L Carbon Dioxide (22-30) mmol/L Anion Gap (10-20) BUN (7-17) mg/dl Creatinine (0.7-1.2) mg/dl Est GFR ( Amer) Est GFR (Non-Af Amer) POC Glucose (mg/dL) 155 H 262 H 292 H (65-110) mg/dL Random Glucose (65-105) mg/dL Calcium (8.4-10.2) mg/dL 11/05/17 11/05/17 11/05/17 Range/Units 11:55 10:34 09:00 WBC (4.8-10.8) K/uL RBC (3.80-5.20) Mil/uL Hgb (12.0-16.0) g/dL Hct (34.0-47.0) % MCV (81.0-99.0) fl MCH (27.0-31.0) pg MCHC (33.0-37.0) g/dL RDW (11.5-14.5) % Plt Count (130-400) K/uL MPV (7.2-11.7) fl Neut % (Auto) (50.0-75.0) % Lymph % (Auto) (20.0-40.0) % [place] % (Auto) (0.0-10.0) % Eos % (Auto) (0.0-4.0) % Baso % (Auto) (0.0-2.0) % Neut # (Auto) (1.8-7.0) K/uL Lymph # (Auto) (1.0-4.3) K/uL [place] # (Auto) (0.0-0.8) K/uL Eos # (Auto) (0.0-0.7) K/uL Baso # (Auto) (0.0-0.2) K/uL Sodium (132-148) mmol/l Potassium (3.6-5.0) MMOL/L Chloride (98-107) mmol/L Carbon Dioxide (22-30) mmol/L Anion Gap (10-20) BUN (7-17) mg/dl Creatinine (0.7-1.2) mg/dl Est GFR ( Amer) Est GFR (Non-Af Amer) POC Glucose (mg/dL) 160 H 181 H 313 H (65-110) mg/dL Random Glucose (65-105) mg/dL Calcium (8.4-10.2) mg/dL Laboratory Results - last 24 hr 11/05/17 11/05/17 11/05/17 09:00 10:34 11:55 WBC RBC Hgb Hct MCV MCH MCHC RDW Plt Count MPV Neut % (Auto) Lymph % (Auto) [place] % (Auto) Eos % (Auto) Baso % (Auto) Neut # (Auto) Lymph # (Auto) [place] # (Auto) Eos # (Auto) Baso # (Auto) Sodium Potassium Chloride Carbon Dioxide Anion Gap BUN Creatinine Est GFR ( Amer) Est GFR (Non-Af Amer) POC Glucose (mg/dL) 313 H 181 H 160 H Random Glucose Calcium 11/05/17 11/05/17 11/05/17 14:32 15:57 18:00 WBC RBC Hgb Hct MCV MCH MCHC RDW Plt Count MPV Neut % (Auto) Lymph % (Auto) [place] % (Auto) Eos % (Auto) Baso % (Auto) Neut # (Auto) Lymph # (Auto) [place] # (Auto) Eos # (Auto) Baso # (Auto) Sodium Potassium Chloride Carbon Dioxide Anion Gap BUN Creatinine Est GFR ( Amer) Est GFR (Non-Af Amer) POC Glucose (mg/dL) 292 H 262 H 155 H Random Glucose Calcium 11/05/17 11/05/17 11/05/17 20:07 22:19 23:34 WBC RBC Hgb Hct MCV MCH MCHC RDW Plt Count MPV Neut % (Auto) Lymph % (Auto) [place] % (Auto) Eos % (Auto) Baso % (Auto) Neut # (Auto) Lymph # (Auto) [place] # (Auto) Eos # (Auto) Baso # (Auto) Sodium Potassium Chloride Carbon Dioxide Anion Gap BUN Creatinine Est GFR ( Amer) Est GFR (Non-Af Amer) POC Glucose (mg/dL) 226 H 147 H 184 H Random Glucose Calcium 11/06/17 11/06/17 11/06/17 01:29 03:30 05:29 WBC RBC Hgb Hct MCV MCH MCHC RDW Plt Count MPV Neut % (Auto) Lymph % (Auto) [place] % (Auto) Eos % (Auto) Baso % (Auto) Neut # (Auto) Lymph # (Auto) [place] # (Auto) Eos # (Auto) Baso # (Auto) Sodium Potassium Chloride Carbon Dioxide Anion Gap BUN Creatinine Est GFR ( Amer) Est GFR (Non-Af Amer) POC Glucose (mg/dL) 177 H 224 H 193 H Random Glucose Calcium 11/06/17 11/06/17 11/06/17 05:30 05:30 08:16 WBC 4.6 L RBC 3.61 L Hgb 10.1 L Hct 30.9 L MCV 85.6 MCH 27.9 MCHC 32.6 L RDW 14.8 H Plt Count 281 MPV 6.8 L Neut % (Auto) 52.4 Lymph % (Auto) 36.9 [place] % (Auto) 7.1 Eos % (Auto) 2.7 Baso % (Auto) 0.9 Neut # (Auto) 2.4 Lymph # (Auto) 1.7 [place] # (Auto) 0.3 Eos # (Auto) 0.1 Baso # (Auto) 0.0 Sodium 138 Potassium 3.7 Chloride 102 Carbon Dioxide 16 L Anion Gap 24 H BUN < 2 L Creatinine 0.5 L Est GFR ( Amer) > 60 Est GFR (Non-Af Amer) > 60 POC Glucose (mg/dL) 128 H Random Glucose 209 H Calcium 8.3 L Fingerstick Blood Sugar Results: 193 Critical Care Progress Note - Nutrition Nutrition: Nutrition Category Date Time Status Consistent Carbohydrate [DIET] Diets 11/04/17 Breakfast Active Assessment/Plan - Assessment and Plan (Free Text) Assessment: A/P DKA, DM - IV fluid - Insulin - Follow up lab - DVT prophylaxis
[2017-11-06 12:55] LABS: MEAN CORPUSCULAR HEMOGLOBIN 28.6 pg (27.0-31.0); MEAN CORPUSCULAR HGB CONC 33.3 g/dL (33.0-37.0); RBC 3.5 Mil/uL (3.80-5.20); RED CELL DISTRIBUTION WIDTH 15.2 % (11.5-14.5); WHITE BLOOD COUNT 6.5 K/uL (4.8-10.8)
[2017-11-06 13:16] LABS: ALT/SGPT 30 U/L (9-52); AST/SGOT 42 U/L (14-36); BLOOD UREA NITROGEN 3 mg/dl (7-17); CALCIUM 8.4 mg/dL (8.4-10.2); GFR AFRICAN-AMERICAN > 60; GFR NON-AFRICAN AMERICAN > 60
[2017-11-06] MEDS ORDERED: Nitroglycerin 2% Ointment Foilpak UD TOP SCH (16:00)
--- NOTE | 2017-11-06 18:53 | CARD ---
APPROVED REPORT EKG Measurement Heart [id number] <Conclusion> Normal sinus rhythm Possible Left atrial enlargement Borderline ECG
--- NOTE | 2017-11-06 19:09 | CP.PCM.PN ---
Subjective - Date & Time of Evaluation Date of Evaluation: 11/06/17 Time of Evaluation: 12:50 - Subjective Subjective: F/U DKA Complained of chest pain earlier epigastric up to mid chest like presure , not having chest pain now Objective - Vital Signs/Intake and Output Vital Signs (last 24 hours): Temp Pulse Resp BP Pulse Ox 97.3 F L 102 H 20 130/90 100 11/06/17 16:00 11/06/17 16:00 11/06/17 16:00 11/06/17 16:00 11/06/17 08:00 Intake and Output: 11/06/17 11/07/17 18:59 06:59 Intake Total 0 Balance 0 - Medications Medications: Current Medications Albuterol/Ipratropium (Duoneb 3 Mg/0.5 Mg (3 Ml) Ud) 3 ml INH RQID LANETTE Last Admin: 11/06/17 15:29 Dose: 3 ml Dextrose (Dextrose 50% Inj) 50 ml IVP ONCE PRN PRN Reason: if ser gluc below 70 Last Admin: 11/03/17 23:40 Dose: 50 ml Guaifenesin/Dextromethorphan (Robitussin Dm) 5 ml PO Q4 PRN PRN Reason: Cough Last Admin: 11/06/17 02:59 Dose: 5 ml Insulin Human Regular 100 (units/ Sodium Chloride) 101 mls @ 5.72 mls/hr IV .[id number] LANETTE; 0.1 UNITS/KG/HR PRN Reason: Protocol Last Titration: 11/06/17 11:11 Dose: 0.08 units/kg/hr, 5 mls/hr Potassium Chloride/Dextrose/Sod Cl (Potassium Chl 20 Meq In D5-1/2ns) 1,000 mls @ 250 mls/hr IV .Q4H LANETTE Last Admin: 11/06/17 05:30 Dose: 250 mls/hr Metoclopramide HCl (Reglan) 10 mg IVP Q6H PRN PRN Reason: Nausea/Vomiting Last Admin: 11/04/17 20:43 Dose: 10 mg Pantoprazole Sodium (Protonix Inj) 40 mg IVP Q12 LANETTE Last Admin: 11/06/17 10:30 Dose: 40 mg Sertraline HCl (Zoloft) 25 mg PO DAILY LANETTE Last Admin: 11/06/17 10:00 Dose: 25 mg - Labs Labs: 11/06/17 12:16 11/06/17 12:10 PT 11.5 Seconds (9.8-13.1) 11/03/17 22:21 INR 1.0 (0.9-1.2) 11/03/17 22:21 APTT 25.6 Seconds (25.6-37.1) 11/03/17 22:21 - Constitutional Appears: No Acute Distress - Head Exam Head Exam: NORMAL INSPECTION - Eye Exam Eye Exam: PERRL - ENT Exam ENT Exam: Normal Exam - Neck Exam Neck Exam: Normal Inspection - Respiratory Exam Respiratory Exam: Clear to Ausculation Bilateral - Cardiovascular Exam Cardiovascular Exam: REGULAR RHYTHM - GI/Abdominal Exam GI & Abdominal Exam: Soft, Normal Bowel Sounds - Extremities Exam Extremities Exam: Normal Inspection - Back Exam Back Exam: NORMAL INSPECTION - Neurological Exam Neurological Exam: Alert, Oriented x3, Reflexes Normal. absent: Motor Sensory Deficit - Psychiatric Exam Psychiatric exam: Normal Mood - Skin Skin Exam: Normal Color, Warm Assessment and Plan (1) DKA (diabetic ketoacidoses) Status: Acute (2) Abdominal pain Status: Resolved (3) Type 1 diabetes Status: Chronic - Assessment and Plan (Free Text) Plan: Cardiology consult, ECHO , patient on Insulin drip , continuel rest of the treatment ICU Time: 32 min.
[2017-11-06] MEDS ORDERED: Dextrose 50% SYRINGE Inj (50 ml) IVP ONE (22:17)
[2017-11-06] MEDS: Dextrose 50% SYRINGE Inj (50 ml) IVP PRN (22:19)
[2017-11-06] MEDS: Insulin Regular 100 UNITS in Sodium Chloride 0.9% 100 ML IV SCH (22:25)
[2017-11-07] MEDS: Potassium Ch 20mEq in D5-1/2NS 1,000 ML IV SCH ×4 (01:59→17:02)
[2017-11-07] MEDS: Dextrose 50% SYRINGE Inj (50 ml) IVP PRN (06:17)
[2017-11-07] MEDS: guaiFENesin DM 100 mg-10 mg/5 ml UD PO PRN (06:22)
[2017-11-07] MEDS ORDERED: Dextrose 50% SYRINGE Inj (50 ml) IVP ONE (06:29)
[2017-11-07] MEDS: Albuterol-Ipratrop 3 mg / 0.5 (3 ml) UD INH SCH ×4 (07:18→19:13)
[2017-11-07 07:33] LABS: HEMOGLOBIN 9.9 g/dL (12.0-16.0); MEAN CORPUSCULAR HEMOGLOBIN 28.4 pg (27.0-31.0); MEAN CORPUSCULAR HGB CONC 33.4 g/dL (33.0-37.0); RBC 3.5 Mil/uL (3.80-5.20); RED CELL DISTRIBUTION WIDTH 14.8 % (11.5-14.5); WHITE BLOOD COUNT 4.3 K/uL (4.8-10.8)
--- NOTE | 2017-11-07 07:52 | CP.CCUPN ---
CCU Subjective - Physician Review Events Since Last Encounter (Free Text): Patient awake, no distress, no fever, no vomiting, follow commands, events reviewed CCU Objective - Vital Signs / Intake & Output Vital Signs (Last 4 hours): Vital Signs Temp Pulse Resp BP 11/07/17 06:00 95 H 11 L 139/92 H 11/07/17 04:00 98.3 F 97 H 10 L 135/85 Intake and Output (Last 8hrs): Intake & Output 11/06/17 11/07/17 11/07/17 22:59 06:59 14:59 Intake Total 1051 1740 Balance 1051 1740 Intake: IV 1051 1500 Oral 240 Other: # Voids Urine, Voided 1 2 - Physical Exam Head: Positive for: Atraumatic, Normocephalic Pupils: Positive for: PERRL Extroacular Muscles: Positive for: EOMI Conjunctiva: Positive for: Normal Mouth: Positive for: Moist Mucous Membranes Nose (External): Positive for: Atraumatic Neck: Positive for: Normal Range of Motion Respiratory/Chest: Positive for: Clear to Auscultation Cardiovascular: Positive for: Regular Rate and Rhythm Abdomen: Positive for: Normal Bowel Sounds Upper Extremity: Positive for: Normal Inspection Lower Extremity: Positive for: Normal Inspection Neurological: Positive for: GCS=15, Speech Normal Psychiatric: Positive for: Alert, Oriented x 3 - Medications Active Medications: Active Medications Generic Name Dose Route Start Last Admin Trade Name Freq PRN Reason Stop Dose Admin Albuterol/Ipratropium 3 ml 11/04/17 08:00 11/07/17 07:18 Duoneb 3 Mg/0.5 Mg (3 Ml) Ud INH 3 ml RQID LANETTE Administration Dextrose 50 ml 11/03/17 23:37 11/07/17 06:17 Dextrose 50% Inj IVP 50 ml ONCE PRN Administration if ser gluc below 70 Guaifenesin/Dextromethorphan 5 ml 11/03/17 23:02 11/07/17 06:22 Robitussin Dm PO 5 ml Q4 PRN Administration Cough Insulin Human Regular 100 101 mls @ 5.72 mls/hr 11/03/17 22:30 11/07/17 02:31 units/ Sodium Chloride IV 0.03 units/kg/hr .[id number] LANETTE 2 mls/hr Protocol Titration 0.1 UNITS/KG/HR Potassium Chloride/Dextrose/Sod Cl 1,000 mls @ 250 mls/hr 11/06/17 01:30 06:08 Potassium Chl 20 Meq In D5-1/2ns IV 250 mls/hr .Q4H LANETTE Administration Metoclopramide HCl 10 mg 11/03/17 22:46 11/04/17 20:43 Reglan IVP 10 mg Q6H PRN Administration Nausea/Vomiting Pantoprazole Sodium 40 mg 11/04/17 17:02 11/06/17 20:51 Protonix Inj IVP 40 mg Q12 LANETTE Administration Sertraline HCl 25 mg 11/05/17 09:00 11/06/17 10:00 Zoloft PO 25 mg DAILY LANETTE Administration - Patient Studies Lab Studies: Lab Studies 11/07/17 11/07/17 11/07/17 Range/Units 06:05 04:04 02:28 WBC (4.8-10.8) K/uL RBC (3.80-5.20) Mil/uL Hgb (12.0-16.0) g/dL Hct (34.0-47.0) % MCV (81.0-99.0) fl MCH (27.0-31.0) pg MCHC (33.0-37.0) g/dL RDW (11.5-14.5) % Plt Count (130-400) K/uL Sodium (132-148) mmol/l Potassium (3.6-5.0) MMOL/L Chloride (98-107) mmol/L Carbon Dioxide (22-30) mmol/L Anion Gap (10-20) BUN (7-17) mg/dl Creatinine (0.7-1.2) mg/dl Est GFR ( Amer) Est GFR (Non-Af Amer) POC Glucose (mg/dL) 145 H 166 H 151 H (65-110) mg/dL Random Glucose (65-105) mg/dL Calcium (8.4-10.2) mg/dL Total Bilirubin (0.2-1.3) mg/dl AST (14-36) U/L ALT (9-52) U/L Alkaline Phosphatase (38-126) U/L Troponin I (0.00-0.120) ng/mL Total Protein (6.3-8.2) G/DL Albumin (3.5-5.0) g/dL Globulin (2.2-3.9) gm/dL Albumin/Globulin Ratio (1.0-2.1) 11/07/17 11/06/17 11/06/17 Range/Units 00:21 22:15 20:31 WBC (4.8-10.8) K/uL RBC (3.80-5.20) Mil/uL Hgb (12.0-16.0) g/dL Hct (34.0-47.0) % MCV (81.0-99.0) fl MCH (27.0-31.0) pg MCHC (33.0-37.0) g/dL RDW (11.5-14.5) % Plt Count (130-400) K/uL Sodium (132-148) mmol/l Potassium (3.6-5.0) MMOL/L Chloride (98-107) mmol/L Carbon Dioxide (22-30) mmol/L Anion Gap (10-20) BUN (7-17) mg/dl Creatinine (0.7-1.2) mg/dl Est GFR ( Amer) Est GFR (Non-Af Amer) POC Glucose (mg/dL) 216 H 136 H (65-110) mg/dL Random Glucose (65-105) mg/dL Calcium (8.4-10.2) mg/dL Total Bilirubin (0.2-1.3) mg/dl AST (14-36) U/L ALT (9-52) U/L Alkaline Phosphatase (38-126) U/L Troponin I < 0.0120 (0.00-0.120) ng/mL Total Protein (6.3-8.2) G/DL Albumin (3.5-5.0) g/dL Globulin (2.2-3.9) gm/dL Albumin/Globulin Ratio (1.0-2.1) 11/06/17 11/06/17 11/06/17 Range/Units 20:03 18:47 15:53 WBC (4.8-10.8) K/uL RBC (3.80-5.20) Mil/uL Hgb (12.0-16.0) g/dL Hct (34.0-47.0) % MCV (81.0-99.0) fl MCH (27.0-31.0) pg MCHC (33.0-37.0) g/dL RDW (11.5-14.5) % Plt Count (130-400) K/uL Sodium (132-148) mmol/l Potassium (3.6-5.0) MMOL/L Chloride (98-107) mmol/L Carbon Dioxide (22-30) mmol/L Anion Gap (10-20) BUN (7-17) mg/dl Creatinine (0.7-1.2) mg/dl Est GFR ( Amer) Est GFR (Non-Af Amer) POC Glucose (mg/dL) 251 H 328 H 107 (65-110) mg/dL Random Glucose (65-105) mg/dL Calcium (8.4-10.2) mg/dL Total Bilirubin (0.2-1.3) mg/dl AST (14-36) U/L ALT (9-52) U/L Alkaline Phosphatase (38-126) U/L Troponin I (0.00-0.120) ng/mL Total Protein (6.3-8.2) G/DL Albumin (3.5-5.0) g/dL Globulin (2.2-3.9) gm/dL Albumin/Globulin Ratio (1.0-2.1) 11/06/17 11/06/17 11/06/17 Range/Units 13:04 12:16 12:10 WBC 6.5 (4.8-10.8) K/uL RBC 3.50 L (3.80-5.20) Mil/uL Hgb 10.0 L (12.0-16.0) g/dL Hct 30.1 L (34.0-47.0) % MCV 86.0 (81.0-99.0) fl MCH 28.6 (27.0-31.0) pg MCHC 33.3 (33.0-37.0) g/dL RDW 15.2 H (11.5-14.5) % Plt Count 277 (130-400) K/uL Sodium 141 (132-148) mmol/l Potassium 3.1 L (3.6-5.0) MMOL/L Chloride 105 (98-107) mmol/L Carbon Dioxide 17 L (22-30) mmol/L Anion Gap 22 H (10-20) BUN 3 L (7-17) mg/dl Creatinine 0.4 L (0.7-1.2) mg/dl Est GFR ( Amer) > 60 Est GFR (Non-Af Amer) > 60 POC Glucose (mg/dL) 205 H (65-110) mg/dL Random Glucose 271 H (65-105) mg/dL Calcium 8.4 (8.4-10.2) mg/dL Total Bilirubin 0.2 (0.2-1.3) mg/dl AST 42 H D (14-36) U/L ALT 30 (9-52) U/L Alkaline Phosphatase 83 (38-126) U/L Troponin I < 0.0120 (0.00-0.120) ng/mL Total Protein 5.9 L (6.3-8.2) G/DL Albumin 3.0 L (3.5-5.0) g/dL Globulin 2.9 (2.2-3.9) gm/dL Albumin/Globulin Ratio 1.0 (1.0-2.1) 11/06/17 11/06/17 Range/Units 11:07 08:16 WBC (4.8-10.8) K/uL RBC (3.80-5.20) Mil/uL Hgb (12.0-16.0) g/dL Hct (34.0-47.0) % MCV (81.0-99.0) fl MCH (27.0-31.0) pg MCHC (33.0-37.0) g/dL RDW (11.5-14.5) % Plt Count (130-400) K/uL Sodium (132-148) mmol/l Potassium (3.6-5.0) MMOL/L Chloride (98-107) mmol/L Carbon Dioxide (22-30) mmol/L Anion Gap (10-20) BUN (7-17) mg/dl Creatinine (0.7-1.2) mg/dl Est GFR ( Amer) Est GFR (Non-Af Amer) POC Glucose (mg/dL) 309 H 128 H (65-110) mg/dL Random Glucose (65-105) mg/dL Calcium (8.4-10.2) mg/dL Total Bilirubin (0.2-1.3) mg/dl AST (14-36) U/L ALT (9-52) U/L Alkaline Phosphatase (38-126) U/L Troponin I (0.00-0.120) ng/mL Total Protein (6.3-8.2) G/DL Albumin (3.5-5.0) g/dL Globulin (2.2-3.9) gm/dL Albumin/Globulin Ratio (1.0-2.1) Laboratory Results - last 24 hr 11/06/17 11/06/17 11/06/17 08:16 11:07 12:10 WBC RBC Hgb Hct MCV MCH MCHC RDW Plt Count Sodium 141 Potassium 3.1 L Chloride 105 Carbon Dioxide 17 L Anion Gap 22 H BUN 3 L Creatinine 0.4 L Est GFR ( Amer) > 60 Est GFR (Non-Af Amer) > 60 POC Glucose (mg/dL) 128 H 309 H Random Glucose 271 H Calcium 8.4 Total Bilirubin 0.2 AST 42 H D ALT 30 Alkaline Phosphatase 83 Troponin I < 0.0120 Total Protein 5.9 L Albumin 3.0 L Globulin 2.9 Albumin/Globulin Ratio 1.0 11/06/17 11/06/17 11/06/17 12:16 13:04 15:53 WBC 6.5 RBC 3.50 L Hgb 10.0 L Hct 30.1 L MCV 86.0 MCH 28.6 MCHC 33.3 RDW 15.2 H Plt Count 277 Sodium Potassium Chloride Carbon Dioxide Anion Gap BUN Creatinine Est GFR ( Amer) Est GFR (Non-Af Amer) POC Glucose (mg/dL) 205 H 107 Random Glucose Calcium Total Bilirubin AST ALT Alkaline Phosphatase Troponin I Total Protein Albumin Globulin Albumin/Globulin Ratio 11/06/17 11/06/17 11/06/17 18:47 20:03 20:31 WBC RBC Hgb Hct MCV MCH MCHC RDW Plt Count Sodium Potassium Chloride Carbon Dioxide Anion Gap BUN Creatinine Est GFR ( Amer) Est GFR (Non-Af Amer) POC Glucose (mg/dL) 328 H 251 H Random Glucose Calcium Total Bilirubin AST ALT Alkaline Phosphatase Troponin I < 0.0120 Total Protein Albumin Globulin Albumin/Globulin Ratio 11/06/17 11/07/17 11/07/17 22:15 00:21 02:28 WBC RBC Hgb Hct MCV MCH MCHC RDW Plt Count Sodium Potassium Chloride Carbon Dioxide Anion Gap BUN Creatinine Est GFR ( Amer) Est GFR (Non-Af Amer) POC Glucose (mg/dL) 136 H 216 H 151 H Random Glucose Calcium Total Bilirubin AST ALT Alkaline Phosphatase Troponin I Total Protein Albumin Globulin Albumin/Globulin Ratio 11/07/17 11/07/17 04:04 06:05 WBC RBC Hgb Hct MCV MCH MCHC RDW Plt Count Sodium Potassium Chloride Carbon Dioxide Anion Gap BUN Creatinine Est GFR ( Amer) Est GFR (Non-Af Amer) POC Glucose (mg/dL) 166 H 145 H Random Glucose Calcium Total Bilirubin AST ALT Alkaline Phosphatase Troponin I Total Protein Albumin Globulin Albumin/Globulin Ratio Fingerstick Blood Sugar Results: 145 Critical Care Progress Note - Nutrition Nutrition: Nutrition Category Date Time Status Consistent Carbohydrate [DIET] Diets 11/04/17 Breakfast Active Assessment/Plan - Assessment and Plan (Free Text) Assessment: A/P DKA, DM, URI - IV fluid - Insulin - Follow up lab - DVT prophylaxis
[2017-11-07 07:53] LABS: BLOOD UREA NITROGEN 5 mg/dl (7-17); CALCIUM 8.3 mg/dL (8.4-10.2); GFR AFRICAN-AMERICAN > 60; GFR NON-AFRICAN AMERICAN > 60
[2017-11-07 08:23] LABS: SQUAMOUS EPITHIAL < 1 /hpf (0-5); URINE BILIRUBIN NEGATIVE (NEGATIVE); URINE BLOOD NEGATIVE (NEGATIVE); URINE CLARITY CLEAR (Clear); URINE COLOR STRAW (YELLOW); URINE GLUCOSE (UA) 150 mg/dL (Normal); URINE LEUKOCYTE ESTERASE NEG Leu/uL (Negative); URINE PROTEIN NEGATIVE (NEGATIVE); URINE UROBILINOGEN 0.2-1.0 mg/dL (0.2-1.0)
--- NOTE | 2017-11-07 10:21 | CP.PCM.CON ---
History of Present Illness - History of Present Illness History of Present Illness: 26 y/o female admitted with DKA This is one of many admissions Pt admits to non compliance Admitted with abdominal pain N/V Cardiology consult called for Chest pain Pt denies she has had chest pains/Palpitations /SOB admits that she has had abdominal pains but not today EKG: normal Troponin: not done PMH: DM I DKA Bronchitis Past Patient History - Infectious Disease Hx of Infectious Diseases: None - Tetanus Immunizations Tetanus Immunization: Unknown - Past Medical History & Family History Past Medical History?: Yes - Past Social History Smoking Status: Light Smoker < 10 Cigarettes Daily Alcohol: Occasional Drugs: Denies Home Situation {Lives}: With Family - CARDIAC Hx Cardiac Disorders: No - PULMONARY Hx Respiratory Disorders: Yes Hx Bronchitis: Yes - NEUROLOGICAL Hx Neurological Disorder: No - HEENT Hx HEENT Problems: No - RENAL Hx Chronic Kidney Disease: No - ENDOCRINE/METABOLIC Hx Endocrine Disorders: Yes (type 1 DM) Hx Diabetes Mellitus Type 1: Yes - HEMATOLOGICAL/ONCOLOGICAL Hx Blood Disorders: No Hx Human Immunodeficiency Virus (HIV): No - INTEGUMENTARY Hx Dermatological Problems: No - MUSCULOSKELETAL/RHEUMATOLOGICAL Hx Musculoskeletal Disorders: No Hx Falls: No - GASTROINTESTINAL Hx Gastrointestinal Disorders: No - GENITOURINARY/GYNECOLOGICAL Hx Genitourinary Disorders: No - PSYCHIATRIC Hx Psychophysiologic Disorder: No Hx Anxiety: No Hx Bipolar Disorder: No Hx Depression: No Hx Paranoia: No Hx Post Traumatic Stress Disorder: No Hx Schizophrenia: No Hx Substance Use: No - SURGICAL HISTORY Hx Surgeries: Yes Hx Section: Yes (x2) Other/Comment: rt thigh abcess I&D (2006) / insulin pump - ANESTHESIA Hx Anesthesia: Yes Hx Anesthesia Reactions: No Hx Malignant Hyperthermia: No Meds Allergies/Adverse Reactions: Allergies Allergy/AdvReac Type Severity Reaction Status Date / Time No Known Allergies Allergy Verified 11/03/17 21:11 - Medications Medications: Current Medications Albuterol/Ipratropium (Duoneb 3 Mg/0.5 Mg (3 Ml) Ud) 3 ml INH RQID [facility] Last Admin: 11/07/17 07:18 Dose: 3 ml Dextrose (Dextrose 50% Inj) 50 ml IVP ONCE PRN PRN Reason: if ser gluc below 70 Last Admin: 11/07/17 06:17 Dose: 50 ml Guaifenesin/Dextromethorphan (Robitussin Dm) 5 ml PO Q4 PRN PRN Reason: Cough Last Admin: 11/07/17 06:22 Dose: 5 ml Insulin Human Regular 100 (units/ Sodium Chloride) 101 mls @ 5.72 mls/hr IV .[id number] [facility]; 0.1 UNITS/KG/HR PRN Reason: Protocol Last Titration: 11/07/17 02:31 Dose: 0.03 units/kg/hr, 2 mls/hr Potassium Chloride/Dextrose/Sod Cl (Potassium Chl 20 Meq In D5-1/2ns) 1,000 mls @ 250 mls/hr IV .Q4H [facility] Last Admin: 11/07/17 06:08 Dose: 250 mls/hr Metoclopramide HCl (Reglan) 10 mg IVP Q6H PRN PRN Reason: Nausea/Vomiting Last Admin: 11/04/17 20:43 Dose: 10 mg Pantoprazole Sodium (Protonix Inj) 40 mg IVP Q12 [facility] Last Admin: 11/07/17 09:05 Dose: 40 mg Sertraline HCl (Zoloft) 25 mg PO DAILY [facility] Last Admin: 11/07/17 09:05 Dose: 25 mg Physical Exam - Constitutional Appears: Well - Head Exam Head Exam: ATRAUMATIC - Eye Exam Eye Exam: Normal appearance - ENT Exam ENT Exam: Normal Exam - Neck Exam Neck exam: Positive for: Normal Inspection - Respiratory Exam Respiratory Exam: NORMAL BREATHING PATTERN - Cardiovascular Exam Cardiovascular Exam: REGULAR RHYTHM Results - Vital Signs Recent Vital Signs: Last Vital Signs Temp 98.5 F 11/07/17 08:00 Pulse 105 H 11/07/17 08:00 Resp 24 11/07/17 08:00 BP 130/77 11/07/17 08:00 Pulse Ox 99 11/07/17 08:00 - Labs Result Diagrams: 11/07/17 05:20 11/07/17 05:20 Labs: Laboratory Results - last 24 hr 11/06/17 11/06/17 11/06/17 07:00 11:07 12:10 WBC RBC Hgb Hct MCV MCH MCHC RDW Plt Count Sodium 141 Potassium 3.1 L Chloride 105 Carbon Dioxide 17 L Anion Gap 22 H BUN 3 L Creatinine 0.4 L Est GFR ( Amer) > 60 Est GFR (Non-Af Amer) > 60 POC Glucose (mg/dL) 309 H Random Glucose 271 H Calcium 8.4 Total Bilirubin 0.2 AST 42 H D ALT 30 Alkaline Phosphatase 83 Troponin I < 0.0120 Total Protein 5.9 L Albumin 3.0 L Globulin 2.9 Albumin/Globulin Ratio 1.0 Urine Color Straw Urine Clarity Clear Urine pH 6.0 Ur Specific [place] 1.012 Urine Protein Negative Urine Glucose (UA) 150 Urine Ketones Negative Urine Blood Negative Urine Nitrate Negative Urine Bilirubin Negative Urine Urobilinogen 0.2-1.0 Ur Leukocyte Esterase Neg Urine RBC (Auto) 2 Urine Microscopic WBC 1 Ur Squamous Epith Cells < 1 11/06/17 11/06/17 11/06/17 12:16 13:04 15:53 WBC 6.5 RBC 3.50 L Hgb 10.0 L Hct 30.1 L MCV 86.0 MCH 28.6 MCHC 33.3 RDW 15.2 H Plt Count 277 Sodium Potassium Chloride Carbon Dioxide Anion Gap BUN Creatinine Est GFR ( Amer) Est GFR (Non-Af Amer) POC Glucose (mg/dL) 205 H 107 Random Glucose Calcium Total Bilirubin AST ALT Alkaline Phosphatase Troponin I Total Protein Albumin Globulin Albumin/Globulin Ratio Urine Color Urine Clarity Urine pH Ur Specific [place] Urine Protein Urine Glucose (UA) Urine Ketones Urine Blood Urine Nitrate Urine Bilirubin Urine Urobilinogen Ur Leukocyte Esterase Urine RBC (Auto) Urine Microscopic WBC Ur Squamous Epith Cells 11/06/17 11/06/17 11/06/17 18:47 20:03 20:31 WBC RBC Hgb Hct MCV MCH MCHC RDW Plt Count Sodium Potassium Chloride Carbon Dioxide Anion Gap BUN Creatinine Est GFR ( Amer) Est GFR (Non-Af Amer) POC Glucose (mg/dL) 328 H 251 H Random Glucose Calcium Total Bilirubin AST ALT Alkaline Phosphatase Troponin I < 0.0120 Total Protein Albumin Globulin Albumin/Globulin Ratio Urine Color Urine Clarity Urine pH Ur Specific [place] Urine Protein Urine Glucose (UA) Urine Ketones Urine Blood Urine Nitrate Urine Bilirubin Urine Urobilinogen Ur Leukocyte Esterase Urine RBC (Auto) Urine Microscopic WBC Ur Squamous Epith Cells 11/06/17 11/07/17 11/07/17 22:15 00:21 02:28 WBC RBC Hgb Hct MCV MCH MCHC RDW Plt Count Sodium Potassium Chloride Carbon Dioxide Anion Gap BUN Creatinine Est GFR ( Amer) Est GFR (Non-Af Amer) POC Glucose (mg/dL) 136 H 216 H 151 H Random Glucose Calcium Total Bilirubin AST ALT Alkaline Phosphatase Troponin I Total Protein Albumin Globulin Albumin/Globulin Ratio Urine Color Urine Clarity Urine pH Ur Specific [place] Urine Protein Urine Glucose (UA) Urine Ketones Urine Blood Urine Nitrate Urine Bilirubin Urine Urobilinogen Ur Leukocyte Esterase Urine RBC (Auto) Urine Microscopic WBC Ur Squamous Epith Cells 11/07/17 11/07/17 11/07/17 04:04 05:20 05:20 WBC 4.3 L RBC 3.50 L Hgb 9.9 L Hct 29.7 L MCV 85.0 MCH 28.4 MCHC 33.4 RDW 14.8 H Plt Count 282 Sodium 142 Potassium 4.0 Chloride 103 Carbon Dioxide 22 Anion Gap 21 H BUN 5 L Creatinine 0.5 L Est GFR ( Amer) > 60 Est GFR (Non-Af Amer) > 60 POC Glucose (mg/dL) 166 H Random Glucose 141 H Calcium 8.3 L Total Bilirubin AST ALT Alkaline Phosphatase Troponin I Total Protein Albumin Globulin Albumin/Globulin Ratio Urine Color Urine Clarity Urine pH Ur Specific [place] Urine Protein Urine Glucose (UA) Urine Ketones Urine Blood Urine Nitrate Urine Bilirubin Urine Urobilinogen Ur Leukocyte Esterase Urine RBC (Auto) Urine Microscopic WBC Ur Squamous Epith Cells 11/07/17 11/07/17 11/07/17 06:05 08:06 10:07 WBC RBC Hgb Hct MCV MCH MCHC RDW Plt Count Sodium Potassium Chloride Carbon Dioxide Anion Gap BUN Creatinine Est GFR ( Amer) Est GFR (Non-Af Amer) POC Glucose (mg/dL) 145 H 171 H 137 H Random Glucose Calcium Total Bilirubin AST ALT Alkaline Phosphatase Troponin I Total Protein Albumin Globulin Albumin/Globulin Ratio Urine Color Urine Clarity Urine pH Ur Specific [place] Urine Protein Urine Glucose (UA) Urine Ketones Urine Blood Urine Nitrate Urine Bilirubin Urine Urobilinogen Ur Leukocyte Esterase Urine RBC (Auto) Urine Microscopic WBC Ur Squamous Epith Cells Assessment & Plan (1) DKA (diabetic ketoacidoses) Assessment and Plan: Cardiac kirk the pt appears stable Status: Acute Priority: High (2) Abdominal pain Status: Resolved Priority: High
--- NOTE | 2017-11-07 15:27 | CP.PCM.PN ---
Subjective - Subjective Subjective: F/U DKA No acute distress , no complains, eating well , no abomminal pain , no chest pain , anxiety reported by nurse Objective - Vital Signs/Intake and Output Vital Signs (last 24 hours): Temp Pulse Resp BP Pulse Ox 98.5 F 105 H 24 130/77 99 11/07/17 08:00 11/07/17 08:00 11/07/17 08:00 11/07/17 08:00 11/07/17 08:00 Intake and Output: 11/07/17 11/07/17 06:59 18:59 Intake Total 2791 9 Balance 2791 9 - Medications Medications: Current Medications Albuterol/Ipratropium (Duoneb 3 Mg/0.5 Mg (3 Ml) Ud) 3 ml INH RQID [facility] Last Admin: 11/07/17 11:09 Dose: 3 ml Dextrose (Dextrose 50% Inj) 50 ml IVP ONCE PRN PRN Reason: if ser gluc below 70 Last Admin: 11/07/17 06:17 Dose: 50 ml Guaifenesin/Dextromethorphan (Robitussin Dm) 5 ml PO Q4 PRN PRN Reason: Cough Last Admin: 11/07/17 06:22 Dose: 5 ml Insulin Human Regular 100 (units/ Sodium Chloride) 101 mls @ 5.72 mls/hr IV .[id number] [facility]; 0.1 UNITS/KG/HR PRN Reason: Protocol Last Titration: 11/07/17 14:00 Dose: 0.03 units/kg/hr, 2 mls/hr Potassium Chloride/Dextrose/Sod Cl (Potassium Chl 20 Meq In D5-1/2ns) 1,000 mls @ 250 mls/hr IV .Q4H [facility] Last Admin: 11/07/17 06:08 Dose: 250 mls/hr Metoclopramide HCl (Reglan) 10 mg IVP Q6H PRN PRN Reason: Nausea/Vomiting Last Admin: 11/04/17 20:43 Dose: 10 mg Pantoprazole Sodium (Protonix Inj) 40 mg IVP Q12 [facility] Last Admin: 11/07/17 09:05 Dose: 40 mg Sertraline HCl (Zoloft) 25 mg PO DAILY [facility] Last Admin: 11/07/17 09:05 Dose: 25 mg - Labs Labs: 11/07/17 05:20 11/07/17 05:20 PT 11.5 Seconds (9.8-13.1) 11/03/17 22:21 INR 1.0 (0.9-1.2) 11/03/17 22:21 APTT 25.6 Seconds (25.6-37.1) 11/03/17 22:21 - Constitutional Appears: No Acute Distress - Head Exam Head Exam: NORMAL INSPECTION - Eye Exam Eye Exam: PERRL - ENT Exam ENT Exam: Normal Exam - Neck Exam Neck Exam: Normal Inspection - Respiratory Exam Respiratory Exam: Clear to Ausculation Bilateral - Cardiovascular Exam Cardiovascular Exam: REGULAR RHYTHM - GI/Abdominal Exam GI & Abdominal Exam: Soft, Normal Bowel Sounds - Extremities Exam Extremities Exam: Normal Inspection - Back Exam Back Exam: NORMAL INSPECTION - Neurological Exam Neurological Exam: Alert, CN II-XII Intact, Oriented x3. absent: Motor Sensory Deficit - Psychiatric Exam Psychiatric exam: Anxious - Skin Skin Exam: Warm Assessment and Plan (1) DKA (diabetic ketoacidoses) Status: Acute (2) Abdominal pain Status: Resolved (3) Type 1 diabetes Status: Chronic - Assessment and Plan (Free Text) Plan: Anion becoming normal , plan to DC Insulin drip , Cardiology consult appreciated , Psychology consult , continue rest of treatment ICU Time: 30 min.
--- NOTE | 2017-11-07 22:29 | CP.CCUPN ---
CCU Subjective - Physician Review Subjective (Free Text): 11/07/17 22:28 Patient with no anion gap, taking PO and serum glucose is under better control. Will d/c insulin gtt and switch to achs accucheck and LA/SA insulin regimen. CCU Objective - Vital Signs / Intake & Output Vital Signs (Last 4 hours): Vital Signs Temp Pulse Resp BP 11/07/17 20:00 98 F 93 H 22 131/81 Intake and Output (Last 8hrs): Intake & Output 11/07/17 11/07/17 11/07/17 06:59 14:59 22:59 Intake Total 1740 9 860 Balance 1740 9 860 Intake: IV 1500 9 760 Oral 240 100 Other: # Voids Urine, Voided 2 2 - Physical Exam Head: Positive for: Atraumatic, Normocephalic Pupils: Positive for: PERRL Extroacular Muscles: Positive for: EOMI Conjunctiva: Positive for: Normal Mouth: Positive for: Moist Mucous Membranes Nose (External): Positive for: Atraumatic Neck: Positive for: Normal Range of Motion Respiratory/Chest: Positive for: Clear to Auscultation Cardiovascular: Positive for: Regular Rate and Rhythm Abdomen: Positive for: Normal Bowel Sounds Upper Extremity: Positive for: Normal Inspection Lower Extremity: Positive for: Normal Inspection Neurological: Positive for: GCS=15, Speech Normal Psychiatric: Positive for: Alert, Oriented x 3 - Medications Active Medications: Active Medications Generic Name Dose Route Start Last Admin Trade Name Freq PRN Reason Stop Dose Admin Albuterol/Ipratropium 3 ml 11/04/17 08:00 11/07/17 19:13 Duoneb 3 Mg/0.5 Mg (3 Ml) Ud INH 3 ml RQID [facility] Administration Dextrose 50 ml 11/03/17 23:37 11/07/17 06:17 Dextrose 50% Inj IVP 50 ml ONCE PRN Administration if ser gluc below 70 Guaifenesin/Dextromethorphan 5 ml 11/03/17 23:02 11/07/17 06:22 Robitussin Dm PO 5 ml Q4 PRN Administration Cough Insulin Detemir 10 units 11/07/17 22:30 Levemir SC HS [facility] Metoclopramide HCl 10 mg 11/03/17 22:46 11/04/17 20:43 Reglan IVP 10 mg Q6H PRN Administration Nausea/Vomiting Pantoprazole Sodium 40 mg 11/04/17 17:02 11/07/17 09:05 Protonix Inj IVP 40 mg Q12 [facility] Administration Sertraline HCl 25 mg 11/05/17 09:00 11/07/17 09:05 Zoloft PO 25 mg DAILY [facility] Administration - Patient Studies Lab Studies: Lab Studies 11/07/17 11/07/17 11/07/17 Range/Units 21:54 20:02 17:55 WBC (4.8-10.8) K/uL RBC (3.80-5.20) Mil/uL Hgb (12.0-16.0) g/dL Hct (34.0-47.0) % MCV (81.0-99.0) fl MCH (27.0-31.0) pg MCHC (33.0-37.0) g/dL RDW (11.5-14.5) % Plt Count (130-400) K/uL Sodium (132-148) mmol/l Potassium (3.6-5.0) MMOL/L Chloride (98-107) mmol/L Carbon Dioxide (22-30) mmol/L Anion Gap (10-20) BUN (7-17) mg/dl Creatinine (0.7-1.2) mg/dl Est GFR ( Amer) Est GFR (Non-Af Amer) POC Glucose (mg/dL) 254 H 186 H 186 H (65-110) mg/dL Random Glucose (65-105) mg/dL Calcium (8.4-10.2) mg/dL Urine Color (YELLOW) Urine Clarity (Clear) Urine pH (5.0-8.0) Ur Specific Breeding (1.003-1.030) Urine Protein (NEGATIVE) mg/dL Urine Glucose (UA) (Normal) mg/dL Urine Ketones (NEGATIVE) mg/dL Urine Blood (NEGATIVE) Urine Nitrate (NEGATIVE) Urine Bilirubin (NEGATIVE) Urine Urobilinogen (0.2-1.0) mg/dL Ur Leukocyte Esterase (Negative) Dian/uL Urine RBC (Auto) (0-3) /hpf Urine Microscopic WBC (0-5) /hpf Ur Squamous Epith Cells (0-5) /hpf 11/07/17 11/07/17 11/07/17 Range/Units 16:46 14:07 11:59 WBC (4.8-10.8) K/uL RBC (3.80-5.20) Mil/uL Hgb (12.0-16.0) g/dL Hct (34.0-47.0) % MCV (81.0-99.0) fl MCH (27.0-31.0) pg MCHC (33.0-37.0) g/dL RDW (11.5-14.5) % Plt Count (130-400) K/uL Sodium (132-148) mmol/l Potassium (3.6-5.0) MMOL/L Chloride (98-107) mmol/L Carbon Dioxide (22-30) mmol/L Anion Gap (10-20) BUN (7-17) mg/dl Creatinine (0.7-1.2) mg/dl Est GFR ( Amer) Est GFR (Non-Af Amer) POC Glucose (mg/dL) 194 H 166 H 289 H (65-110) mg/dL Random Glucose (65-105) mg/dL Calcium (8.4-10.2) mg/dL Urine Color (YELLOW) Urine Clarity (Clear) Urine pH (5.0-8.0) Ur Specific Breeding (1.003-1.030) Urine Protein (NEGATIVE) mg/dL Urine Glucose (UA) (Normal) mg/dL Urine Ketones (NEGATIVE) mg/dL Urine Blood (NEGATIVE) Urine Nitrate (NEGATIVE) Urine Bilirubin (NEGATIVE) Urine Urobilinogen (0.2-1.0) mg/dL Ur Leukocyte Esterase (Negative) Dian/uL Urine RBC (Auto) (0-3) /hpf Urine Microscopic WBC (0-5) /hpf Ur Squamous Epith Cells (0-5) /hpf 11/07/17 11/07/17 11/07/17 Range/Units 10:07 08:06 06:05 WBC (4.8-10.8) K/uL RBC (3.80-5.20) Mil/uL Hgb (12.0-16.0) g/dL Hct (34.0-47.0) % MCV (81.0-99.0) fl MCH (27.0-31.0) pg MCHC (33.0-37.0) g/dL RDW (11.5-14.5) % Plt Count (130-400) K/uL Sodium (132-148) mmol/l Potassium (3.6-5.0) MMOL/L Chloride (98-107) mmol/L Carbon Dioxide (22-30) mmol/L Anion Gap (10-20) BUN (7-17) mg/dl Creatinine (0.7-1.2) mg/dl Est GFR ( Amer) Est GFR (Non-Af Amer) POC Glucose (mg/dL) 137 H 171 H 145 H (65-110) mg/dL Random Glucose (65-105) mg/dL Calcium (8.4-10.2) mg/dL Urine Color (YELLOW) Urine Clarity (Clear) Urine pH (5.0-8.0) Ur Specific Breeding (1.003-1.030) Urine Protein (NEGATIVE) mg/dL Urine Glucose (UA) (Normal) mg/dL Urine Ketones (NEGATIVE) mg/dL Urine Blood (NEGATIVE) Urine Nitrate (NEGATIVE) Urine Bilirubin (NEGATIVE) Urine Urobilinogen (0.2-1.0) mg/dL Ur Leukocyte Esterase (Negative) Dian/uL Urine RBC (Auto) (0-3) /hpf Urine Microscopic WBC (0-5) /hpf Ur Squamous Epith Cells (0-5) /hpf 11/07/17 11/07/17 11/07/17 Range/Units 05:20 05:20 04:04 WBC 4.3 L (4.8-10.8) K/uL RBC 3.50 L (3.80-5.20) Mil/uL Hgb 9.9 L (12.0-16.0) g/dL Hct 29.7 L (34.0-47.0) % MCV 85.0 (81.0-99.0) fl MCH 28.4 (27.0-31.0) pg MCHC 33.4 (33.0-37.0) g/dL RDW 14.8 H (11.5-14.5) % Plt Count 282 (130-400) K/uL Sodium 142 (132-148) mmol/l Potassium 4.0 (3.6-5.0) MMOL/L Chloride 103 (98-107) mmol/L Carbon Dioxide 22 (22-30) mmol/L Anion Gap 21 H (10-20) BUN 5 L (7-17) mg/dl Creatinine 0.5 L (0.7-1.2) mg/dl Est GFR ( Amer) > 60 Est GFR (Non-Af Amer) > 60 POC Glucose (mg/dL) 166 H (65-110) mg/dL Random Glucose 141 H (65-105) mg/dL Calcium 8.3 L (8.4-10.2) mg/dL Urine Color (YELLOW) Urine Clarity (Clear) Urine pH (5.0-8.0) Ur Specific Breeding (1.003-1.030) Urine Protein (NEGATIVE) mg/dL Urine Glucose (UA) (Normal) mg/dL Urine Ketones (NEGATIVE) mg/dL Urine Blood (NEGATIVE) Urine Nitrate (NEGATIVE) Urine Bilirubin (NEGATIVE) Urine Urobilinogen (0.2-1.0) mg/dL Ur Leukocyte Esterase (Negative) Dian/uL Urine RBC (Auto) (0-3) /hpf Urine Microscopic WBC (0-5) /hpf Ur Squamous Epith Cells (0-5) /hpf 11/07/17 11/07/17 11/06/17 Range/Units 02:28 00:21 07:00 WBC (4.8-10.8) K/uL RBC (3.80-5.20) Mil/uL Hgb (12.0-16.0) g/dL Hct (34.0-47.0) % MCV (81.0-99.0) fl MCH (27.0-31.0) pg MCHC (33.0-37.0) g/dL RDW (11.5-14.5) % Plt Count (130-400) K/uL Sodium (132-148) mmol/l Potassium (3.6-5.0) MMOL/L Chloride (98-107) mmol/L Carbon Dioxide (22-30) mmol/L Anion Gap (10-20) BUN (7-17) mg/dl Creatinine (0.7-1.2) mg/dl Est GFR ( Amer) Est GFR (Non-Af Amer) POC Glucose (mg/dL) 151 H 216 H (65-110) mg/dL Random Glucose (65-105) mg/dL Calcium (8.4-10.2) mg/dL Urine Color Straw (YELLOW) Urine Clarity Clear (Clear) Urine pH 6.0 (5.0-8.0) Ur Specific Breeding 1.012 (1.003-1.030) Urine Protein Negative (NEGATIVE) mg/dL Urine Glucose (UA) 150 (Normal) mg/dL Urine Ketones Negative (NEGATIVE) mg/dL Urine Blood Negative (NEGATIVE) Urine Nitrate Negative (NEGATIVE) Urine Bilirubin Negative (NEGATIVE) Urine Urobilinogen 0.2-1.0 (0.2-1.0) mg/dL Ur Leukocyte Esterase Neg (Negative) Dian/uL Urine RBC (Auto) 2 (0-3) /hpf Urine Microscopic WBC 1 (0-5) /hpf Ur Squamous Epith Cells < 1 (0-5) /hpf Laboratory Results - last 24 hr 11/06/17 11/07/17 11/07/17 07:00 00:21 02:28 WBC RBC Hgb Hct MCV MCH MCHC RDW Plt Count Sodium Potassium Chloride Carbon Dioxide Anion Gap BUN Creatinine Est GFR ( Amer) Est GFR (Non-Af Amer) POC Glucose (mg/dL) 216 H 151 H Random Glucose Calcium Urine Color Straw Urine Clarity Clear Urine pH 6.0 Ur Specific Breeding 1.012 Urine Protein Negative Urine Glucose (UA) 150 Urine Ketones Negative Urine Blood Negative Urine Nitrate Negative Urine Bilirubin Negative Urine Urobilinogen 0.2-1.0 Ur Leukocyte Esterase Neg Urine RBC (Auto) 2 Urine Microscopic WBC 1 Ur Squamous Epith Cells < 1 11/07/17 11/07/17 11/07/17 04:04 05:20 05:20 WBC 4.3 L RBC 3.50 L Hgb 9.9 L Hct 29.7 L MCV 85.0 MCH 28.4 MCHC 33.4 RDW 14.8 H Plt Count 282 Sodium 142 Potassium 4.0 Chloride 103 Carbon Dioxide 22 Anion Gap 21 H BUN 5 L Creatinine 0.5 L Est GFR ( Amer) > 60 Est GFR (Non-Af Amer) > 60 POC Glucose (mg/dL) 166 H Random Glucose 141 H Calcium 8.3 L Urine Color Urine Clarity Urine pH Ur Specific Breeding Urine Protein Urine Glucose (UA) Urine Ketones Urine Blood Urine Nitrate Urine Bilirubin Urine Urobilinogen Ur Leukocyte Esterase Urine RBC (Auto) Urine Microscopic WBC Ur Squamous Epith Cells 11/07/17 11/07/17 11/07/17 06:05 08:06 10:07 WBC RBC Hgb Hct MCV MCH MCHC RDW Plt Count Sodium Potassium Chloride Carbon Dioxide Anion Gap BUN Creatinine Est GFR ( Amer) Est GFR (Non-Af Amer) POC Glucose (mg/dL) 145 H 171 H 137 H Random Glucose Calcium Urine Color Urine Clarity Urine pH Ur Specific Breeding Urine Protein Urine Glucose (UA) Urine Ketones Urine Blood Urine Nitrate Urine Bilirubin Urine Urobilinogen Ur Leukocyte Esterase Urine RBC (Auto) Urine Microscopic WBC Ur Squamous Epith Cells 11/07/17 11/07/17 11/07/17 11:59 14:07 16:46 WBC RBC Hgb Hct MCV MCH MCHC RDW Plt Count Sodium Potassium Chloride Carbon Dioxide Anion Gap BUN Creatinine Est GFR ( Amer) Est GFR (Non-Af Amer) POC Glucose (mg/dL) 289 H 166 H 194 H Random Glucose Calcium Urine Color Urine Clarity Urine pH Ur Specific Breeding Urine Protein Urine Glucose (UA) Urine Ketones Urine Blood Urine Nitrate Urine Bilirubin Urine Urobilinogen Ur Leukocyte Esterase Urine RBC (Auto) Urine Microscopic WBC Ur Squamous Epith Cells 11/07/17 11/07/17 11/07/17 17:55 20:02 21:54 WBC RBC Hgb Hct MCV MCH MCHC RDW Plt Count Sodium Potassium Chloride Carbon Dioxide Anion Gap BUN Creatinine Est GFR ( Amer) Est GFR (Non-Af Amer) POC Glucose (mg/dL) 186 H 186 H 254 H Random Glucose Calcium Urine Color Urine Clarity Urine pH Ur Specific Breeding Urine Protein Urine Glucose (UA) Urine Ketones Urine Blood Urine Nitrate Urine Bilirubin Urine Urobilinogen Ur Leukocyte Esterase Urine RBC (Auto) Urine Microscopic WBC Ur Squamous Epith Cells Fingerstick Blood Sugar Results: 186 Critical Care Progress Note - Nutrition Nutrition: Nutrition Category Date Time Status Consistent Carbohydrate [DIET] Diets 11/04/17 Breakfast Active Assessment/Plan (1) DKA (diabetic ketoacidoses) Current Visit: Yes Status: Acute Priority: High (2) DVT prophylaxis Current Visit: No Status: Acute
[2017-11-07] MEDS ORDERED: Insulin Detemir 100 Units/ml Inj SC SCH (22:30)
[2017-11-08 06:05] LABS: HEMOGLOBIN 10.2 g/dL (12.0-16.0); MEAN CELL VOLUME 85.6 fl (81.0-99.0); MEAN CORPUSCULAR HEMOGLOBIN 27.9 pg (27.0-31.0); MEAN CORPUSCULAR HGB CONC 32.6 g/dL (33.0-37.0); RBC 3.64 Mil/uL (3.80-5.20); RED CELL DISTRIBUTION WIDTH 14.9 % (11.5-14.5); WHITE BLOOD COUNT 4.7 K/uL (4.8-10.8)
[2017-11-08 06:24] LABS: BLOOD UREA NITROGEN 6 mg/dl (7-17); CALCIUM 8.7 mg/dL (8.4-10.2); GFR AFRICAN-AMERICAN > 60; GFR NON-AFRICAN AMERICAN > 60
[2017-11-08] MEDS: Insulin Lispro (humaLOG) 100 Units/ml Inj SC SCH ×5 (06:35→22:14)
[2017-11-08] MEDS: Albuterol-Ipratrop 3 mg / 0.5 (3 ml) UD INH SCH ×4 (08:07→19:30)
--- NOTE | 2017-11-08 09:27 | CARD ---
APPROVED REPORT EKG Measurement Heart [id number] <Conclusion> Suspect arm lead reversal, interpretation assumes no reversal Normal sinus rhythm Anterolateral infarct, age undetermined Abnormal ECG Note: Probable arm lead reversal-please repeat
--- NOTE | 2017-11-08 11:51 | CP.CCUPN ---
CCU Subjective - Physician Review Events Since Last Encounter (Free Text): 11/08/17 11:50 The patient was Seen/interviewed and examined by me at the bedside during ICU round, Medical records reviewed and Management issues were discussed and formulated with the house staff. Events reviewed Patient awake, no distress, no fever, no vomiting, follow commands, events reviewed Off insulin drip Clinically and hemodynamically improved No Vasopressors Awake, comfortable, NAD Patient started on Zoloft 25 mg PO Daily by Psych to be titrate up to 50 mg PO Daily CCU Objective - Vital Signs / Intake & Output Vital Signs (Last 4 hours): Vital Signs Temp Pulse Resp BP Pulse Ox 11/08/17 08:00 99.8 F H 82 22 138/88 100 Intake and Output (Last 8hrs): Intake & Output 11/07/17 11/08/17 11/08/17 22:59 06:59 14:59 Intake Total 860 Balance 860 Intake: IV 760 Oral 100 Other: # Voids Urine, Voided 2 1 - Physical Exam Head: Positive for: Atraumatic, Normocephalic Pupils: Positive for: PERRL Extroacular Muscles: Positive for: EOMI Conjunctiva: Positive for: Normal Mouth: Positive for: Moist Mucous Membranes Nose (External): Positive for: Atraumatic Neck: Positive for: Normal Range of Motion Respiratory/Chest: Positive for: Clear to Auscultation Cardiovascular: Positive for: Regular Rate and Rhythm Abdomen: Positive for: Normal Bowel Sounds. Negative for: Tenderness, Distention, Peritoneal Signs Upper Extremity: Positive for: Normal Inspection, NORMAL PULSES, Capillary Refill < 2s. Negative for: Cyanosis, Edema Lower Extremity: Positive for: Normal Inspection, Capillary Refill < 2 s. Negative for: Edema Neurological: Positive for: GCS=15, CN II-XII Intact, Speech Normal, Motor Func Grossly Intact, Normal Sensory Function Psychiatric: Positive for: Alert, Oriented x 3 - Medications Active Medications: Active Medications Generic Name Dose Route Start Last Admin Trade Name Freq PRN Reason Stop Dose Admin Albuterol/Ipratropium 3 ml 11/04/17 08:00 11/08/17 11:21 Duoneb 3 Mg/0.5 Mg (3 Ml) Ud INH 3 ml RQID [facility] Administration Dextrose 50 ml 11/03/17 23:37 04/22/18 06:17 Dextrose 50% Inj IVP 50 ml ONCE PRN Administration if ser gluc below 70 Guaifenesin/Dextromethorphan 5 ml 11/03/17 23:02 11/07/17 06:22 Robitussin Dm PO 5 ml Q4 PRN Administration Cough Insulin Detemir 10 units 11/07/17 22:30 11/07/17 22:50 Levemir SC 10 units HS [facility] Administration Insulin Human Lispro 0 units 11/08/17 07:30 11/08/17 06:35 Humalog SC 2 units ACHS [facility] Administration Protocol Metoclopramide HCl 10 mg 11/03/17 22:46 11/04/17 20:43 Reglan IVP 10 mg Q6H PRN Administration Nausea/Vomiting Pantoprazole Sodium 40 mg 11/04/17 17:02 11/08/17 09:10 Protonix Inj IVP 40 mg Q12 [facility] Administration Sertraline HCl 25 mg 11/05/17 09:00 11/08/17 09:10 Zoloft PO 25 mg DAILY [facility] Administration - Patient Studies Lab Studies: Lab Studies 11/08/17 11/08/17 11/08/17 Range/Units 11:42 04:46 04:30 WBC (4.8-10.8) K/uL RBC (3.80-5.20) Mil/uL Hgb (12.0-16.0) g/dL Hct (34.0-47.0) % MCV (81.0-99.0) fl MCH (27.0-31.0) pg MCHC (33.0-37.0) g/dL RDW (11.5-14.5) % Plt Count (130-400) K/uL Sodium 141 (132-148) mmol/l Potassium 4.2 (3.6-5.0) MMOL/L Chloride 96 L (98-107) mmol/L Carbon Dioxide 24 (22-30) mmol/L Anion Gap 25 H (10-20) BUN 6 L (7-17) mg/dl Creatinine 0.4 L (0.7-1.2) mg/dl Est GFR ( Amer) > 60 Est GFR (Non-Af Amer) > 60 POC Glucose (mg/dL) 213 H 238 H (65-110) mg/dL Random Glucose 260 H (65-105) mg/dL Calcium 8.7 (8.4-10.2) mg/dL 11/08/17 11/07/17 11/07/17 Range/Units 04:30 21:54 20:02 WBC 4.7 L (4.8-10.8) K/uL RBC 3.64 L (3.80-5.20) Mil/uL Hgb 10.2 L (12.0-16.0) g/dL Hct 31.2 L (34.0-47.0) % MCV 85.6 (81.0-99.0) fl MCH 27.9 (27.0-31.0) pg MCHC 32.6 L (33.0-37.0) g/dL RDW 14.9 H (11.5-14.5) % Plt Count 279 (130-400) K/uL Sodium (132-148) mmol/l Potassium (3.6-5.0) MMOL/L Chloride (98-107) mmol/L Carbon Dioxide (22-30) mmol/L Anion Gap (10-20) BUN (7-17) mg/dl Creatinine (0.7-1.2) mg/dl Est GFR ( Amer) Est GFR (Non-Af Amer) POC Glucose (mg/dL) 254 H 186 H (65-110) mg/dL Random Glucose (65-105) mg/dL Calcium (8.4-10.2) mg/dL 11/07/17 11/07/17 11/07/17 Range/Units 17:55 16:46 14:07 WBC (4.8-10.8) K/uL RBC (3.80-5.20) Mil/uL Hgb (12.0-16.0) g/dL Hct (34.0-47.0) % MCV (81.0-99.0) fl MCH (27.0-31.0) pg MCHC (33.0-37.0) g/dL RDW (11.5-14.5) % Plt Count (130-400) K/uL Sodium (132-148) mmol/l Potassium (3.6-5.0) MMOL/L Chloride (98-107) mmol/L Carbon Dioxide (22-30) mmol/L Anion Gap (10-20) BUN (7-17) mg/dl Creatinine (0.7-1.2) mg/dl Est GFR ( Amer) Est GFR (Non-Af Amer) POC Glucose (mg/dL) 186 H 194 H 166 H (65-110) mg/dL Random Glucose (65-105) mg/dL Calcium (8.4-10.2) mg/dL 11/07/17 Range/Units 11:59 WBC (4.8-10.8) K/uL RBC (3.80-5.20) Mil/uL Hgb (12.0-16.0) g/dL Hct (34.0-47.0) % MCV (81.0-99.0) fl MCH (27.0-31.0) pg MCHC (33.0-37.0) g/dL RDW (11.5-14.5) % Plt Count (130-400) K/uL Sodium (132-148) mmol/l Potassium (3.6-5.0) MMOL/L Chloride (98-107) mmol/L Carbon Dioxide (22-30) mmol/L Anion Gap (10-20) BUN (7-17) mg/dl Creatinine (0.7-1.2) mg/dl Est GFR ( Amer) Est GFR (Non-Af Amer) POC Glucose (mg/dL) 289 H (65-110) mg/dL Random Glucose (65-105) mg/dL Calcium (8.4-10.2) mg/dL Laboratory Results - last 24 hr 11/07/17 11/07/17 11/07/17 11:59 14:07 16:46 WBC RBC Hgb Hct MCV MCH MCHC RDW Plt Count Sodium Potassium Chloride Carbon Dioxide Anion Gap BUN Creatinine Est GFR ( Amer) Est GFR (Non-Af Amer) POC Glucose (mg/dL) 289 H 166 H 194 H Random Glucose Calcium 11/07/17 11/07/17 11/07/17 17:55 20:02 21:54 WBC RBC Hgb Hct MCV MCH MCHC RDW Plt Count Sodium Potassium Chloride Carbon Dioxide Anion Gap BUN Creatinine Est GFR ( Amer) Est GFR (Non-Af Amer) POC Glucose (mg/dL) 186 H 186 H 254 H Random Glucose Calcium 11/08/17 11/08/17 11/08/17 04:30 04:30 04:46 WBC 4.7 L RBC 3.64 L Hgb 10.2 L Hct 31.2 L MCV 85.6 MCH 27.9 MCHC 32.6 L RDW 14.9 H Plt Count 279 Sodium 141 Potassium 4.2 Chloride 96 L Carbon Dioxide 24 Anion Gap 25 H BUN 6 L Creatinine 0.4 L Est GFR ( Amer) > 60 Est GFR (Non-Af Amer) > 60 POC Glucose (mg/dL) 238 H Random Glucose 260 H Calcium 8.7 11/08/17 11:42 WBC RBC Hgb Hct MCV MCH MCHC RDW Plt Count Sodium Potassium Chloride Carbon Dioxide Anion Gap BUN Creatinine Est GFR ( Amer) Est GFR (Non-Af Amer) POC Glucose (mg/dL) 213 H Random Glucose Calcium Fingerstick Blood Sugar Results: 238 Review of Systems - Cardiovascular Cardiovascular: absent: As Per HPI, Acrocyanosis, Chest Pain, Chest Pain at Rest , Chest Pain with Activity, Claudication, Diaphoresis, Dyspnea, Dyspnea on Exertion, Edema, Irregular Heart Rhythm, Pain Radiating to Arm/Neck/Jaw, Leg Edema, Leg Ulcers, Lightheadedness, Orthopnea, Palpitations, Paroxysmal Nocturnal Dyspnea, Pedal Edema, Radiating Pain, Rapid Heart Rate, Slow Heart Rate, Syncope, Other, UNREMARKABLE - Respiratory Respiratory: absent: As Per HPI, Cough, Dyspnea, Hemoptysis, Dyspnea on Exertion , Wheezing, Snoring, Stridor, Pain on Inspiration, Chest Congestion, Excessive Mucous Production, Change in Mucous Color, Pain with Coughing, Other, UNREMARKABLE Critical Care Progress Note - Extremities/Vascular Does the Patient have a Central Venous Catheter?: No Does the Patient need a Central Venous Catheter?: No Does the Patient have a Herrera Catheter?: No Does the Patient need a Herrera Catheter?: No - Nutrition Nutrition: Nutrition Category Date Time Status Consistent Carbohydrate [DIET] Diets 11/04/17 Breakfast Active Assessment/Plan (1) DKA (diabetic ketoacidoses) Current Visit: Yes Status: Acute Priority: High Comment: Clinically and hemodynamically improved off Insulin drip Restart Home medications Repeate Labs (2) Depression Current Visit: Yes Status: Acute Comment: Patient started on Zoloft 25 mg PO Daily by Psych to be titrate up to 50 mg PO Daily (3) Abdominal pain Current Visit: Yes Status: Resolved Priority: High (4) Dehydration Current Visit: No Status: Acute (5) Abnormal liver function tests Current Visit: No Status: Acute Comment: Slight elevated , Asymptomatic, continue monitoring
--- NOTE | 2017-11-08 13:47 | CARD ---
APPROVED REPORT EXAM: Two-dimensional and M-mode echocardiogram with Doppler and color Doppler. Other Information Quality : GoodRhythm : NSR INDICATION Chest Pain 2D DIMENSIONS IVSd1.19 (0.7-1.1cm)LVDd4.25 (3.9-5.9cm) LVOT Diameter1.57 (1.8-2.4cm)PWd0.94 (0.7-1.1cm) IVSs1.32 (0.8-1.2cm)LVDs2.86 (2.5-4.0cm) FS (%) 32.7 %PWs1.47 (0.8-1.2cm) M-Mode DIMENSIONS Left Atrium (MM)3.73 (2.5-4.0cm)IVSd0.69 (0.7-1.1cm) Aortic Root2.47 (2.2-3.7cm)LVDd4.63 (4.0-5.6cm) Aortic Cusp Exc.1.80 (1.5-2.0cm)PWd0.90 (0.7-1.1cm) IVSs1.29 cmFS (%) 36 % LVDs2.96 (2.0-3.8cm)PWs1.39 cm Mitral Valve MV E Wscdnrln74.3cm/sMV DECEL [id number] A Butkgetz00.1cm/s MV LNG25vaJ/A ratio1.4MVA (PHT)5.46cm2 TDI Lateral E' Peak V17.11cm/sMedial E' Peak V11.65cm/sE/Lateral E'4.9 E/Medial E'7.2 Pulmonary Valve PV Peak Bimqtwla072.1cm/s LEFT VENTRICLE The left ventricle is normal size. There is normal left ventricular wall thickness. The left ventricular function is normal. The left ventricular ejection fraction is - 65%. There is normal LV segmental wall motion. The left ventricular diastolic function is normal. No left ventricle thrombus noted on this study. There is no ventricular septal defect visualized. There is no left ventricular aneurysm. There is no mass noted in the left ventricle. RIGHT VENTRICLE The right ventricle is normal size. There is normal right ventricular wall thickness. The right ventricular systolic function is normal. ATRIA The left atrium size is normal. There is no thrombus suspected in the left atrium. The right atrium size is normal. The interatrial septum is intact with no evidence for an atrial septal defect. AORTIC VALVE The aortic valve is normal in structure. No aortic regurgitation is present. There is no aortic valvular stenosis. MITRAL VALVE The mitral valve is normal in structure. There is no evidence of mitral valve prolapse. There is no mitral valve stenosis. There is no mitral valve regurgitation noted. TRICUSPID VALVE The tricuspid valve is normal in structure. There is trace to mild tricuspid regurgitation. There is no tricuspid valve prolapse or vegetation. There is no tricuspid valve stenosis. PULMONIC VALVE The pulmonary valve is normal in structure. There is no pulmonic valvular regurgitation. GREAT VESSELS The aortic root is normal in size. The IVC collapses <50% with inspiration. PERICARDIAL EFFUSION The pericardium appears normal. There is no pleural effusion. <Conclusion> The left ventricle is normal in size and wall thickness. The left ventricular function is normal. The left ventricular ejection fraction is - 65%. The left atrium, right ventricle and right atrium are normal in size. The mitral, aortic and tricuspid valves are normal. There is trace to mild tricuspid regurgitation.
--- NOTE | 2017-11-08 16:18 | CON ---
DATE: ENDOCRINOLOGY CONSULTATION NOTE LOCATION: Room number 656. HISTORY OF PRESENT ILLNESS: This is a 26-year-old female with known history of a uncontrolled type 1 insulin-dependent diabetes presenting here once again with recurrent diabetic ketoacidosis and dehydration related to very poor adherence to the insulin regimen and frequent drug omissions as noted and has concomitant nausea and dyspepsia and vomiting with upper abdominal pain and is being referred now for diabetic evaluation and management. Past medical history as mentioned above, history of type 1 insulin-dependent diabetes who was actually supposed to start the [employer] insulin pump, but yet the patient has delayed the aforementioned despite the approval by insurance company and the [employer] rep coming in to see your and teaching her the baseline initial procedures for the initiation of the insulin pump. History of generalized anxiety and admits to multiple family issues at this time. FAMILY HISTORY: Positive for hypertension and diabetes. SOCIAL HISTORY: The patient has supportive family. No known substance use. REVIEW OF SYSTEMS As mentioned above. Admits to generalized body weakness with progressive bouts of dizziness and lightheadedness, worse on the day of admission. No chest pains or palpitations or PND. Her oral intake has been variable with nausea and dyspepsia and intractable vomiting episodes and vague upper abdominal pains. Also admits to marked polyuria, nocturia, and polydipsia as noted. PHYSICAL EXAMINATION: GENERAL: She Is an average built female in no apparent distress with a blood pressure of 140/80, pulse of 70 beats per minute and regular, temperature is 98, and respirations are 20. Height is 5 feet 3 inches and weight is 125 pounds. HEENT: Head is normocephalic. Eyes are anicteric with pink conjunctivae. Funduscopy is not possible at this time. Ears, nose and throat otherwise normal. NECK: Supple. Thyroid gland is normal in size. No carotid bruits or any cervical adenopathy. CARDIOPULMONARY: Some adynamic precordium. S1 and S2 is rapid and regular. Lungs are clear to auscultation. GASTROINTESTINAL: Abdomen is flat and soft with positive bowel sounds. EXTREMITIES: No peripheral edema. Pulses are +2 bilaterally. LABORATORY DATA: Her chemistries showed a BUN of 6, sodium of 141, potassium of 4.2, chloride of 96, CO2 of 24, glucose of 260 and creatinine of 0.4. The initial CO2 on admission was less than five as noted. ASSESSMENT: This is a 26-year-old female with uncontrolled and decompensated type 1 insulin-dependent diabetes presenting here with recurrent diabetic ketoacidosis related to drug omission and poor adherence to her insulin regimen despite the fact that she has within her already the [employer] insulin pump, which was supposed to be started last year and yet has not been started by the patient at this time. PLAN OF MANAGEMENT: As discussed with the patient at bedside imperatively to optimize her metabolic control especially with the initiation of the [employer] insulin pump not be overemphasized at this time. This will at least minimize her hospital readmissions, recurrent diabetic ketoacidosis. We will initiate a more physiologic basal and bolus insulin regimen with Humalog to be added as 6 units subcutaneous t.i.d. before meals to start today. We will modify the coverage scale to obviate hypoglycemia and detailed orders have been given. We will also increase the Levemir as given as basal insulin to 16 units subcutaneous at bedtime daily to start tonight. We will continue the serial chemistries to be ordered and we will titrate her dose regimen accordingly to optimize metabolic control. We will follow. Monet Gallego MD
--- NOTE | 2017-11-08 16:19 | CP.PCM.PN ---
Subjective - Date & Time of Evaluation Date of Evaluation: 11/08/17 Time of Evaluation: 11:50 - Subjective Subjective: Patient with no acute distress , no complaint , eating well , no cough Objective - Vital Signs/Intake and Output Vital Signs (last 24 hours): Temp Pulse Resp BP Pulse Ox 99.8 F H 82 22 138/88 100 11/08/17 08:00 11/08/17 08:00 11/08/17 08:00 11/08/17 08:00 11/08/17 08:00 Intake and Output: 11/08/17 11/08/17 06:59 18:59 Intake Total 256 Balance 256 - Medications Medications: Current Medications Albuterol/Ipratropium (Duoneb 3 Mg/0.5 Mg (3 Ml) Ud) 3 ml INH RQID [facility] Last Admin: 11/08/17 11:21 Dose: 3 ml Dextrose (Dextrose 50% Inj) 50 ml IVP ONCE PRN PRN Reason: if ser gluc below 70 Last Admin: 11/07/17 06:17 Dose: 50 ml Guaifenesin/Dextromethorphan (Robitussin Dm) 5 ml PO Q4 PRN PRN Reason: Cough Last Admin: 11/07/17 06:22 Dose: 5 ml Insulin Detemir (Levemir) 16 units SC HS [facility] Insulin Human Lispro (Humalog) 6 units SC AC [facility] Insulin Human Lispro (Humalog) 0 units SC ACHS [facility] PRN Reason: Protocol Metoclopramide HCl (Reglan) 10 mg IVP Q6H PRN PRN Reason: Nausea/Vomiting Last Admin: 11/04/17 20:43 Dose: 10 mg Pantoprazole Sodium (Protonix Inj) 40 mg IVP Q12 [facility] Last Admin: 11/08/17 09:10 Dose: 40 mg Sertraline HCl (Zoloft) 25 mg PO DAILY [facility] Last Admin: 11/08/17 09:10 Dose: 25 mg - Labs Labs: 11/08/17 04:30 11/08/17 04:30 PT 11.5 Seconds (9.8-13.1) 11/03/17 22:21 INR 1.0 (0.9-1.2) 11/03/17 22:21 APTT 25.6 Seconds (25.6-37.1) 11/03/17 22:21 - Constitutional Appears: No Acute Distress - Head Exam Head Exam: NORMAL INSPECTION - Eye Exam Eye Exam: PERRL - ENT Exam ENT Exam: Normal Exam - Neck Exam Neck Exam: Normal Inspection - Respiratory Exam Respiratory Exam: Clear to Ausculation Bilateral, NORMAL BREATHING PATTERN - Cardiovascular Exam Cardiovascular Exam: REGULAR RHYTHM - GI/Abdominal Exam GI & Abdominal Exam: Soft, Normal Bowel Sounds - Extremities Exam Extremities Exam: Normal Inspection - Back Exam Back Exam: NORMAL INSPECTION - Neurological Exam Neurological Exam: Alert, CN II-XII Intact, Oriented x3. absent: Motor Sensory Deficit - Psychiatric Exam Psychiatric exam: Anxious - Skin Skin Exam: Warm Assessment and Plan (1) DKA (diabetic ketoacidoses) Status: Acute (2) Abdominal pain Status: Resolved (3) Type 1 diabetes Status: Chronic - Assessment and Plan (Free Text) Plan: Insulin drip was DC , Patient on Humalog sliding scale , Levemir , Transfer to Med-Surg
[2017-11-08] MEDS ORDERED: Insulin Detemir 100 Units/ml Inj SC SCH (22:00)
[2017-11-09 07:36] LABS: LDL CHOLESTEROL 94 mg/dL (0-129)
[2017-11-09 07:38] LABS: ALB/GLOB RATIO 1.1 (1.0-2.1); ALBUMIN 3.3 g/dL (3.5-5.0); ALT/SGPT 120 U/L (9-52); AST/SGOT 126 U/L (14-36); BLOOD UREA NITROGEN 8 mg/dl (7-17); CALCIUM 8.9 mg/dL (8.4-10.2); GFR AFRICAN-AMERICAN > 60; GFR NON-AFRICAN AMERICAN > 60; HDL CHOLESTEROL 43 MG/DL (30-70)
[2017-11-09] MEDS: Albuterol-Ipratrop 3 mg / 0.5 (3 ml) UD INH SCH ×2 (07:51→11:30)
[2017-11-09 08:22] VITALS: BP 132/85; PULSE 81; RESP 18; TEMP 98.1; O2SAT 97
[2017-11-09] MEDS: Insulin Lispro (humaLOG) 100 Units/ml Inj SC SCH ×4 (08:49→13:15)
--- NOTE | 2017-11-09 11:11 | CP.PCM.PCO ---
Assessment & Plan - Assessment and Plan (Free Text) Assessment: pt. doing well, denies sob, cp, fever chills, n/vd BS better controlled Noted elevated lft- pt. for Abd Us today and then cleared for discharge to Home today by , and cont. current meds _ E rx sent to pharmacy pt. instructed on importance of f/u with [employer] for insulin pump, conveys understanding f/u with psychiatry outpatient educated on SE of meds, cont. to monitor f/u with in 1 week
[2017-11-09] MEDS ORDERED: Dextrose 50% SYRINGE Inj (50 ml) ONE (11:17)
[2017-11-09] MEDS: Dextrose 50% SYRINGE Inj (50 ml) IVP PRN (11:20)
--- NOTE | 2017-11-09 11:27 | US ---
HISTORY: Elevated liver function tests COMPARISON: None. TECHNIQUE: Grayscale imaging was performed. FINDINGS: LIVER: Measures 23.1 cm in length. There is mild diffuse increased echogenicity of the liver parenchyma. No mass. No intrahepatic bile duct dilatation. GALLBLADDER: The gallbladder is partially contracted due to nonfasting status. There are no gallstones, wall thickening or pericholecystic fluid. The sonographic Cardenas's sign is negative. COMMON BILE DUCT: Measures 2.3 mm. No stones. No dilatation. PANCREAS: Normal in size and echotexture. No mass. No ductal dilatation. RIGHT KIDNEY: Measures 11.6 cm in length. There is mild diffuse increased echogenicity and decreased vascularity. No calculus, mass, or hydronephrosis. AORTA: No aneurysmal dilatation. IVC: Unremarkable. OTHER FINDINGS: None . IMPRESSION: Moderate hepatomegaly. Diffuse increased echogenicity in the liver may reflect hepatic steatosis however parenchymal infectious/ inflammatory etiologies cannot be entirely excluded. Clinical and laboratory correlation is advised. Mild diffuse increased renal cortical echogenicity concerning for renal parenchymal disease. Also noted decreased renal perfusion.
--- NOTE | 2017-11-09 12:44 | CP.PCM.DIS ---
Provider - Provider Date of Admission: 11/03/17 22:36 Attending physician: Jean-Pierre Vasquez MD Diagnosis - Discharge Diagnosis (1) DKA (diabetic ketoacidoses) Status: Acute Priority: High (2) Abdominal pain Status: Resolved Priority: High (3) Type 1 diabetes Status: Chronic Priority: High Hospital Course - Lab Results Lab Results: Micro Results 11/04/17 07:48 Naris MRSA Culture (Admit) - Final MRSA NOT DETECTED Most Recent Lab Values WBC 4.7 K/uL (4.8-10.8) L 11/08/17 04:30 RBC 3.64 Mil/uL (3.80-5.20) L 11/08/17 04:30 Hgb 10.2 g/dL (12.0-16.0) L 11/08/17 04:30 Hct 31.2 % (34.0-47.0) L 11/08/17 04:30 MCV 85.6 fl (81.0-99.0) 11/08/17 04:30 MCH 27.9 pg (27.0-31.0) 11/08/17 04:30 MCHC 32.6 g/dL (33.0-37.0) L 11/08/17 04:30 RDW 14.9 % (11.5-14.5) H 11/08/17 04:30 Plt Count 279 K/uL (130-400) 11/08/17 04:30 MPV 6.8 fl (7.2-11.7) L 11/06/17 05:30 Neut % (Auto) 52.4 % (50.0-75.0) 11/06/17 05:30 Lymph % (Auto) 36.9 % (20.0-40.0) 11/06/17 05:30 [place] % (Auto) 7.1 % (0.0-10.0) 11/06/17 05:30 Eos % (Auto) 2.7 % (0.0-4.0) 11/06/17 05:30 Baso % (Auto) 0.9 % (0.0-2.0) 11/06/17 05:30 Neut # (Auto) 2.4 K/uL (1.8-7.0) 11/06/17 05:30 Lymph # (Auto) 1.7 K/uL (1.0-4.3) 11/06/17 05:30 [place] # (Auto) 0.3 K/uL (0.0-0.8) 11/06/17 05:30 Eos # (Auto) 0.1 K/uL (0.0-0.7) 11/06/17 05:30 Baso # (Auto) 0.0 K/uL (0.0-0.2) 11/06/17 05:30 PT 11.5 Seconds (9.8-13.1) 11/03/17 22:21 INR 1.0 (0.9-1.2) 11/03/17 22:21 APTT 25.6 Seconds (25.6-37.1) 11/03/17 22:21 pCO2 13 mm/Hg (35-45) L* 11/03/17 22:17 pO2 129 mm/Hg (80-100) H 11/03/17 22:17 HCO3 9.8 mmol/L (21-28) L* 11/03/17 22:17 ABG pH 7.23 (7.35-7.45) L 11/03/17 22:17 ABG Total CO2 5.8 mmol/L (22-28) L 11/03/17 22:17 ABG O2 Saturation 100.8 % (95-98) H 11/03/17 22:17 ABG Base Excess -19.4 mmol/L (-2.0-3.0) L 11/03/17 22:17 Rivera Test Yes 11/03/17 22:17 ABG Potassium 3.2 mmol/L (3.6-5.2) L 11/03/17 22:17 A-a O2 Difference 4.0 mm/Hg 11/03/17 22:17 Sodium 135.0 mmol/L (132-148) 11/03/17 22:17 Chloride 106.0 mmol/L (98-107) 11/03/17 22:17 Glucose 120 mg/dL (65-105) H 11/03/17 22:17 Lactate 5.7 mmol/L (0.7-2.1) H* 11/03/17 22:17 FiO2 21.0 % 11/03/17 22:17 Crit Value Called To Kevin wisdom md 04/18/18 22:17 Crit Value Called By [id number] 11/03/17 22:17 Crit Value Read Back Y 11/03/17 22:17 Blood Gas Notified Time 221911/03/17 22:17 Sodium 141 mmol/l (132-148) 11/09/17 06:30 Potassium 3.8 MMOL/L (3.6-5.0) 11/09/17 06:30 Chloride 96 mmol/L (98-107) L 11/09/17 06:30 Carbon Dioxide 31 mmol/L (22-30) H 11/09/17 06:30 Anion Gap 18 (10-20) 11/09/17 06:30 BUN 8 mg/dl (7-17) 11/09/17 06:30 Creatinine 0.5 mg/dl (0.7-1.2) L 11/09/17 06:30 Est GFR ( Amer) > 60 11/09/17 06:30 Est GFR (Non-Af Amer) > 60 11/09/17 06:30 POC Glucose (mg/dL) 132 mg/dL (65-110) H 11/09/17 12:09 Random Glucose 121 mg/dL (65-105) H 11/09/17 06:30 Hemoglobin A1c 10.1 % (4.2-6.5) H 11/09/17 06:30 Calcium 8.9 mg/dL (8.4-10.2) 11/09/17 06:30 Total Bilirubin 0.4 mg/dl (0.2-1.3) 11/09/17 06:30 AST 126 U/L (14-36) H D 11/09/17 06:30 ALT 120 U/L (9-52) H D 11/09/17 06:30 Alkaline Phosphatase 129 U/L (38-126) H D 11/09/17 06:30 Troponin I < 0.0120 ng/mL (0.00-0.120) 11/06/17 20:31 Total Protein 6.4 G/DL (6.3-8.2) 11/09/17 06:30 Albumin 3.3 g/dL (3.5-5.0) L 11/09/17 06:30 Globulin 3.1 gm/dL (2.2-3.9) 11/09/17 06:30 Albumin/Globulin Ratio 1.1 (1.0-2.1) 11/09/17 06:30 Triglycerides 158 mg/DL (0-149) H D 11/09/17 06:30 Cholesterol 159 mg/dL (0-199) 11/09/17 06:30 LDL Cholesterol Direct 94 mg/dL (0-129) 11/09/17 06:30 HDL Cholesterol 43 MG/DL (30-70) 11/09/17 06:30 Lipase 56 U/L (23-300) 11/03/17 22:00 TSH 3rd Generation 2.02 mIU/ML (0.46-4.68) 11/09/17 06:30 Arterial Blood Potassium 3.2 mmol/L (3.6-5.2) L 11/03/17 22:17 Urine Color Straw (YELLOW) 11/06/17 07:00 Urine Clarity Clear (Clear) 11/06/17 07:00 Urine pH 6.0 (5.0-8.0) 11/06/17 07:00 Ur Specific [place] 1.012 (1.003-1.030) 11/06/17 07:00 Urine Protein Negative mg/dL (NEGATIVE) 11/06/17 07:00 Urine Glucose (UA) 150 mg/dL (Normal) 11/06/17 07:00 Urine Ketones Negative mg/dL (NEGATIVE) 11/06/17 07:00 Urine Blood Negative (NEGATIVE) 11/06/17 07:00 Urine Nitrate Negative (NEGATIVE) 11/06/17 07:00 Urine Bilirubin Negative (NEGATIVE) 11/06/17 07:00 Urine Urobilinogen 0.2-1.0 mg/dL (0.2-1.0) 11/06/17 07:00 Ur Leukocyte Esterase Neg Dian/uL (Negative) 11/06/17 07:00 Urine RBC (Auto) 2 /hpf (0-3) 11/06/17 07:00 Urine Microscopic WBC 1 /hpf (0-5) 11/06/17 07:00 Ur Squamous Epith Cells < 1 /hpf (0-5) 11/06/17 07:00 - Hospital Course Hospital Course: 26 year old female multiple admission the DKA, last discharge from 10-29-17 patient signed AMA on 11/03/2017 patient returned to ER. She awoke with symptoms of hypoglycemia, generalized abdominal pain , moderate intensity, associated with nausea ,vomiting non bloody, non bilious ,no diarrhea with no relief Patient not being compliant with her insulin regimen ,patient with previous use of insulin pump has been off the pump for 2 years Past medical history DM type I, bronchitis Surgical history section 2, right side at I in the 2006, insulin pump Patient was admitted with DKA, abdominal pain , type 1 diabetes Psychiatric consult and impression 26-year-old female admitted with DKA presented with worsening depression in the context of recent of the and recommendations Zoloft 25 mg orally titrate up to 50 mg daily Echocardiogram LVEF 65% left ventricle normal size and ventricular function normal Patient was admitted in the ICU she was having an increase anion gap, increase blood sugar, increased liver enzymes she was treated with insulin drip IV fluids KCL , Reglan, Protonix, Robitussin-DM DuoNeb Endocrine consult and recommendation Humalog and Levemir. Patient improved, anion gap became normal ,nsulin drip was discontinued and patient was treated with Humalog TID with meals and Levemir Endocrine workday financials consultant recommended continue with Humalog, Levemir and also contact the insurance company for insulin pump Patient initially was having abdominal pain was 2nd to the nausea vomiting , abdominal ultrasound showing hepatomegaly and hepatic steatosis, mild diffuse increased renal cortical echogenicity concerning for renal parenchymal disease, also patient was having some cough and in the lungs rhonchi . Upon discharge patient was with no complaint ,eating well ,no abdominal pain, the lungs were clear, heart regular, the abdomen soft, extremities negative. Patient was improved and stable and was discharged , see MAR , to have follow-up with PMD and to have follow-up with endocrine workday financials consultant in one week who is making arrangements for an insulin pump Final diagnoses DKA; the DM 1 , dehydration abdominal pain secondary nausea and vomiting and , abnormal liver function tests , bronchitis . Discharge Exam - Head Exam Head Exam: NORMAL INSPECTION Discharge Plan - Discharge Medications Prescriptions: Insulin Lispro [Humalog (Insulin Lispro)] 6 unit SQ AC #1 cartridge Insulin Detemir [Levemir] 16 units SC HS #20 vial Pantoprazole [Protonix] 40 mg PO DAILY #12 ect Sertraline [Zoloft] 25 mg PO DAILY #30 tab - Follow Up Plan Condition: GUARDED Disposition: HOME/ ROUTINE Instructions: Diabetes Exchange Diet, Acute Abdomen (Belly Pain), Adult (DC), Diabetic Ketoacidosis (DC), Diabetes and Diet Additional Instructions: pt. doing well, denies sob, cp, fever chills, n/vd BS better controlled Noted elevated lft- pt. for Abd Us today and then cleared for discharge to Home today by , and cont. current meds _ E rx sent to pharmacy pt. instructed on importance of f/u with [employer] for insulin pump, conveys understanding f/u with psychiatry outpatient educated on SE of meds, cont. to monitor follow up with primary MD 7-10 days Referrals: Monet Gallego MD [Medical Doctor] - Gene Velazquez MD [Staff Provider] - Adela Box MD [Medical Doctor] -
--- NOTE | 2017-11-09 20:29 | PN ---
ENDOCRINOLOGY FOLLOWUP NOTE DATE: LOCATION: In room 656. SUBJECTIVE: This is a 26-year-old female with recent uncontrolled type 1 insulin-dependent diabetes presenting here with diabetic ketoacidosis and dehydration and is now being followed closely for metabolic management. Her glycemic levels are fluctuating as noted because of the variability of her oral intake with very poor meal portions as noted. Her glucose values today have ranged from 46 to 132 mg/dL. Her hemoglobin A1c is 10.1%, which is extremely elevated and indicative of very poor suboptimal metabolic control of her diabetic condition even prior to this admission. Her latest chemistry showed a BUN of 8, sodium 141, potassium 3.8, chloride 96, CO2 of 31, glucose is 121, and creatinine is 0.5. She has slightly elevated liver transaminases as noted today with values of AST of 126, ALT of 120, alkaline phosphatase of 129, and TSH of 2.02. ASSESSMENT AND PLAN: This is a 26-year-old female with uncontrolled and decompensated type 1 insulin-dependent diabetes presenting here with recurrent diabetic ketoacidosis and dehydration related to drug omission and very poor adherence and compliance to her insulin regimen despite having already of [employer] insulin pump, which she has yet to get started on. Plan of management, we will modify her current insulin regimen and keep her Levemir at 16 units subcutaneously at bedtime daily to start tonight. We will also continue the NovoLog given as 6 units subcutaneously t.i.d. before meals to start today as ordered. We will modify the coverage scale to obviate hypoglycemia and detailed orders have been given using Humalog insulin as ordered. We will obtain serial chemistries and supplement accordingly as needed. We will follow. Mnoet Gallego MD
== END 2017-11-09 14:05 | disposition home or self-care (01) | DRG 295 ==
LOC: H.ER 21:04 → H.ERHOLD 22:36 → H.ICU/CCU 11-04 00:12 → H.MEDSURG1 11-08 14:46
PROVIDERS: ADMIT Internal Medicine Pulmonary Disease; ATTEND Internal Medicine Pulmonary Disease
DX: E10.10 Type 1 diabetes mellitus with ketoacidosis without coma (principal); E86.0 Dehydration; E10.649 Type 1 diabetes mellitus with hypoglycemia without coma; F32.9 Major depressive disorder, single episode, unspecified; F41.1 Generalized anxiety disorder; I10 Essential (primary) hypertension; J06.9 Acute upper respiratory infection, unspecified; Z72.0 Tobacco use; Z79.4 Long term (current) use of insulin; Z91.19 Patient's noncompliance with other medical treatment and regimen; R74.0 Nonspecific elevation of levels of transaminase and lactic acid dehydrogenase [LDH]; R94.5 Abnormal results of liver function studies

== ENCOUNTER 2018-03-15 22:54 | Emergency (ER) | payer OTHER ==
[2018-03-15 22:54] VITALS: BMI 23.9
[2018-03-15 23:03] VITALS: BP 107/61; TEMP 99.9; O2SAT 98
[2018-03-16] MEDS ORDERED: Sodium Chloride 0.9% 1,000 ML IV STA
--- NOTE | 2018-03-16 00:04 | ED PDOC ---
HPI: Abdomen Time Seen by Provider: 03/15/18 23:24 Chief Complaint (Nursing): Abdominal Pain Chief Complaint (Provider): abdominal pain History Per: Patient History/Exam Limitations: no limitations Onset/Duration Of Symptoms: Days (2) Current Symptoms Are (Timing): Still Present Location Of Pain/Discomfort: Diffuse Associated Symptoms: Fever, Chills, Back Pain Additional Complaint(s): 27 y/o female history of IDDM brought in by EMS for evaluation of diffuse abdominal pain x 2 days. Associated low back pain, fever, chills. Patient states she took Advil with little improvement. Patient also reports ongoing vaginal bleeding after receiving Depo Provera injection 3 weeks ago. Denies dizziness, nausea/vomiting, cough/congestion, chest pain, shortness of breath, palpitations, changes in bowel movements, urinary symptoms, recent travel, sick contacts. Against Medical Advice - AMA Patient Left Against Medical Advice: The patient declines admission to the hospital and wishes to leave the Emergency Department. This action is against my medical advice. This decision was made with informed refusal. The patient was told that admission to the hospital is necessary. Explanation of the reasons why were discussed. The risks of leaving were explained to the patient and include, but are not limited to, worsening of known or currently unknown conditions, permanent disability and from undiagnosed or untreated conditions. The patient has the capacity to make this informed decision and understands my explanation of the current medical problem and risks of leaving. The patient voluntarily accepts these risks and signed an AMA form documenting our conversation. The patient was given the opportunity to ask questions and reconsider. The patient was encouraged to return to the Emergency Department at any time for further care. Past Medical History Reviewed: Historical Data, Nursing Documentation, Vital Signs Vital Signs: Last Vital Signs Temp 99.9 F H 03/15/18 22:58 Pulse 72 03/16/18 03:29 Resp 16 03/16/18 03:29 BP 107/61 03/16/18 03:29 Pulse Ox 98 03/16/18 03:29 - Medical History PMH: Bronchitis, Diabetes (type 1) Denies: Anxiety, Bipolar Disorder, Depression, HIV, Paranoia, Post Traumatic Stress Disorder, Chronic Kidney Disease, Schizophrenia - Surgical History Surgical History: (x2) - Family History Family History: States: Unknown Family Hx - Immunization History Hx Tetanus Toxoid Vaccination: No Hx Influenza Vaccination: No Hx Pneumococcal Vaccination: No - Home Medications Home Medications: Ambulatory Orders Medication Instructions Recorded Insulin Detemir [Levemir] 16 units SC HS #20 vial 11/09/17 Insulin Lispro [Humalog (Insulin 6 unit SQ AC #1 cartridge 11/09/17 Lispro)] Pantoprazole [Protonix] 40 mg PO DAILY #12 ect 11/09/17 Sertraline [Zoloft] 25 mg PO DAILY #30 tab 11/09/17 - Allergies Allergies/Adverse Reactions: Allergies Allergy/AdvReac Type Severity Reaction Status Date / Time No Known Allergies Allergy Verified 11/03/17 21:11 Review of Systems ROS Statement: Except As Marked, All Systems Reviewed And Found Negative Constitutional: Positive for: Fever, Chills Gastrointestinal: Positive for: Abdominal Pain Genitourinary Female: Positive for: Vaginal Bleeding Physical Exam - Reviewed Nursing Documentation Reviewed: Yes Vital Signs Reviewed: Yes - Physical Exam Appears: Positive for: Well, Non-toxic, No Acute Distress Head Exam: Positive for: ATRAUMATIC, NORMAL INSPECTION, NORMOCEPHALIC Skin: Positive for: Normal Color Eye Exam: Positive for: Normal appearance ENT: Positive for: Normal ENT Inspection Cardiovascular/Chest: Positive for: Regular Rate, Rhythm Respiratory: Positive for: Normal Breath Sounds Gastrointestinal/Abdominal: Positive for: Bowel Sounds, Soft, Tenderness ( diffuse) Back: Positive for: Normal Inspection Extremity: Positive for: Normal ROM Neurologic/Psych: Positive for: Alert, Oriented (x3) - Laboratory Results Result Diagrams: 03/16/18 01:04 03/16/18 01:04 - ECG O2 Sat by Pulse Oximetry: 98 - Progress ED Course And Treament: labs, urine, CT abd/pelvis Glucose 433; patient states she did not take her insulin today because she wasn' t feeling good Patient refusing ABG; states she has been here for DKA before and her symptoms today don't feel the same Labs c/w DKA; IV insulin drip ordered Patient educated on findings, and need for ICU admission. Patient states she would like to leave as she did not come here for her diabetes to be addressed. Patient was advised that her symptoms could be related to DKA and that her other symptoms will also be addressed. Patient still wishes to leave. Patient advised she will need to sign out against medical advice, and risks of doing so Patient AAOx3; demonstrates full competency in making medical decisions. Advised f/up with PMD FIONA Return precautions given Disposition - Clinical Impression Clinical Impression: DKA (diabetic ketoacidoses), Left against medical advice, Abdominal pain, Back pain - Disposition Disposition: Against Medical Advice Disposition Time: 02:00 Condition: GUARDED Instructions: Low Back Pain in Adults, Diabetic Ketoacidosis, Acute Abdomen ( Belly Pain), Adult (DC), Leaving Against Medical Advice Forms: Read[employer] (Danish)
[2018-03-16] MEDS ORDERED: Insulin Regular 100 units/ml IV STA (00:12)
[2018-03-16] MEDS ORDERED: Iohexol 240 (50 ml) PO ONE (00:40)
[2018-03-16 01:08] LABS: SQUAMOUS EPITHIAL 1 /hpf (0-5); URINE BILIRUBIN NEGATIVE (NEGATIVE); URINE BLOOD MODERATE (NEGATIVE); URINE CLARITY SLIGHTY-CLOUDY (Clear); URINE COLOR YELLOW (YELLOW); URINE GLUCOSE (UA) >=500 mg/dL (Normal); URINE LEUKOCYTE ESTERASE NEG Leu/uL (Negative); URINE PROTEIN 30 mg/dL (NEGATIVE); URINE UROBILINOGEN 0.2-1.0 mg/dL (0.2-1.0)
[2018-03-16] MEDS ORDERED: Iohexol 240 (50 ml) ONE (01:17)
[2018-03-16] MEDS ORDERED: Insulin Regular 100 units/ml ONE (01:17)
[2018-03-16 01:19] LABS: VENOUS BLOOD GAS BASE EXCESS -12.2 mmol/L (0.0-2.0); VENOUS BLOOD GAS PCO2 23 mmHg (40-60); VENOUS BLOOD GAS PO2 50 mm/Hg (30-55); VENOUS BLOOD PH 7.32 (7.32-7.43)
[2018-03-16 01:24] LABS: BASO # 0.1 K/uL (0.0-0.2); BASO % 0.7 % (0.0-2.0); HEMOGLOBIN 11.8 g/dL (12.0-16.0); LYMPH # 0.8 K/uL (1.0-4.3); LYMPH % 8.3 % (20.0-40.0); MEAN CELL VOLUME 86.5 fl (81.0-99.0); MEAN CORPUSCULAR HEMOGLOBIN 27.6 pg (27.0-31.0); MEAN CORPUSCULAR HGB CONC 31.9 g/dL (33.0-37.0); MEAN PLATELET VOLUME 7.5 fl (7.2-11.7); MONO # 0.4 K/uL (0.0-0.8); MONO % 4.5 % (0.0-10.0); NEUT # 8.3 K/uL (1.8-7.0); NEUT % 86.5 % (50.0-75.0); PLATELET COUNT 272 K/uL (130-400); RBC 4.27 Mil/uL (3.80-5.20); RED CELL DISTRIBUTION WIDTH 15.3 % (11.5-14.5); WHITE BLOOD COUNT 9.6 K/uL (4.8-10.8)
[2018-03-16 01:38] LABS: ALB/GLOB RATIO 1.3 (1.0-2.1); ALBUMIN 4.1 g/dL (3.5-5.0); ALT/SGPT 25 U/L (9-52); AST/SGOT 33 U/L (14-36); BLOOD UREA NITROGEN 14 mg/dl (7-17); CALCIUM 9.1 mg/dL (8.4-10.2); GFR NON-AFRICAN AMERICAN > 60; LIPASE 53 U/L (23-300)
[2018-03-16 03:06] LABS: BANDS 1 % (0-2); LYMPHOCYTE 6 % (20-50); MONOCYTE 1 % (0-10); NEUTROPHIL 92 % (42-75); TOTAL CELLS COUNTED 100
[2018-03-16 03:13] LABS: ANISOCYTOSIS SLIGHT; HYPOCHROMIC SLIGHT; PLATELET ESTIMATE NORMAL (NORMAL)
[2018-03-16 03:30] VITALS: PULSE 72; RESP 16
== END 2018-03-16 02:00 | disposition left against medical advice (07) ==
LOC: H.ER 22:54
DX: E11.10 Type 2 diabetes mellitus with ketoacidosis without coma (principal); Z79.4 Long term (current) use of insulin; N93.9 Abnormal uterine and vaginal bleeding, unspecified
CPT/HCPCS: 80053; 81003; 81025; 82803; 82948; 83690; 85025; 87040; 87086; 87181; 87804; 96374; 96375; 99284; J1885; J7030; Q9966

== ENCOUNTER 2018-03-16 18:10 | Emergency (ER) | payer OTHER ==
[2018-03-16 18:10] VITALS: BMI 23.9
[2018-03-16] MEDS ORDERED: Sodium Chloride 0.9% 1,000 ML IV STA (18:45)
[2018-03-16 19:56] LABS: BASO # 0.1 K/uL (0.0-0.2); BASO % 0.8 % (0.0-2.0); EOS % 0.5 % (0.0-4.0); HEMOGLOBIN 11.9 g/dL (12.0-16.0); LYMPH % 12.3 % (20.0-40.0); MEAN CELL VOLUME 83.6 fl (81.0-99.0); MEAN CORPUSCULAR HEMOGLOBIN 28.1 pg (27.0-31.0); MEAN CORPUSCULAR HGB CONC 33.6 g/dL (33.0-37.0); MEAN PLATELET VOLUME 7.4 fl (7.2-11.7); MONO # 0.4 K/uL (0.0-0.8); MONO % 5.3 % (0.0-10.0); NEUT # 6.3 K/uL (1.8-7.0); NEUT % 81.1 % (50.0-75.0); NRBC % 0.1 % (0.0-0.0); RBC 4.23 Mil/uL (3.80-5.20); RED CELL DISTRIBUTION WIDTH 15.3 % (11.5-14.5); WHITE BLOOD COUNT 7.8 K/uL (4.8-10.8)
[2018-03-16 19:58] LABS: VENOUS BLOOD GAS PCO2 34 mmHg (40-60); VENOUS BLOOD GAS PO2 13 mm/Hg (30-55)
--- NOTE | 2018-03-16 20:00 | ED PDOC ---
HPI: Female Pain Time Seen by Provider: 03/16/18 18:18 Chief Complaint (Nursing): Abdominal Pain Chief Complaint (Provider): Vaginal bleeding History Per: Patient History/Exam Limitations: no limitations Onset/Duration Of Symptoms: Days (3) Current Symptoms Are (Timing): Still Present Additional Complaint(s): 27yo female, comes to ER with complaints of vaginal bleeding x 3 days. She states the flow is similar to her menses however this bleeding is not consistent with her menstrual cycle. She also reports associated severe pelvic pain which radiates to her back; patient also complains of "burning" sensation to her scar. She has had nausea and intermittent vomiting x 2 days. Patient denies any fever, chills, shortness of breath and offers no additional medical complaints. Of note, patient was seen yesterday for similar complaints and was found to have markedly elevated blood glucose level and was offered admission to ICU for DKA. Patient elected to leave AMA yesterday due to child care provider concerns. Patient states today she has had no PO intake and states she did not take her insulin. She also reports 3.5 weeks ago, she received the first dose of her Depo shot and since then has been feeling unwell with associated lightheadedness and mild bodyaches. LATIN PROFESSOR: Dr. Ponce Abnormal Vaginal Bleeding: Yes Past Medical History Reviewed: Historical Data, Nursing Documentation, Vital Signs Vital Signs: Last Vital Signs Temp 99.6 F 03/16/18 18:15 Pulse 129 H 03/16/18 18:15 Resp 22 03/16/18 18:15 BP 102/74 03/16/18 18:15 Pulse Ox 99 03/16/18 18:15 - Medical History PMH: Bronchitis, Diabetes (type 1) Denies: Anxiety, Bipolar Disorder, Depression, HIV, Paranoia, Post Traumatic Stress Disorder, Chronic Kidney Disease, Schizophrenia - Surgical History Surgical History: (x2) - Family History Family History: States: Hypertension - Social History Current smoker - smoking cessation education provided: Yes - Immunization History Hx Tetanus Toxoid Vaccination: No Hx Influenza Vaccination: No Hx Pneumococcal Vaccination: No - Home Medications Home Medications: Ambulatory Orders Medication Instructions Recorded Insulin Detemir [Levemir] 16 units SC HS #20 vial 11/09/17 Insulin Lispro [Humalog (Insulin 6 unit SQ AC #1 cartridge 11/09/17 Lispro)] Pantoprazole [Protonix] 40 mg PO DAILY #12 ect 11/09/17 Sertraline [Zoloft] 25 mg PO DAILY #30 tab 11/09/17 Ibuprofen [Motrin Tab] 600 mg PO Q8 PRN #60 tab 03/16/18 traMADol [Ultram] 50 mg PO TID PRN #15 tab 03/16/18 - Allergies Allergies/Adverse Reactions: Allergies Allergy/AdvReac Type Severity Reaction Status Date / Time No Known Allergies Allergy Verified 03/16/18 18:15 Review of Systems ROS Statement: Except As Marked, All Systems Reviewed And Found Negative (per HPI) Constitutional: Negative for: Fever Cardiovascular: Positive for: Light Headedness. Negative for: Chest Pain Respiratory: Negative for: Shortness of Breath Gastrointestinal: Positive for: Nausea, Vomiting Genitourinary Female: Positive for: Vaginal Bleeding, Pelvic Pain Physical Exam - Reviewed Nursing Documentation Reviewed: Yes Vital Signs Reviewed: Yes - Physical Exam Appears: Positive for: Non-toxic, In Acute Distress (painful distress) Head Exam: Positive for: ATRAUMATIC, NORMOCEPHALIC Skin: Positive for: Warm, Dry Eye Exam: Positive for: EOMI, PERRL ENT: Negative for: Pharyngeal Erythema, Tonsillar Exudate Neck: Positive for: Supple Cardiovascular/Chest: Positive for: Regular Rate, Rhythm Respiratory: Positive for: Normal Breath Sounds Gastrointestinal/Abdominal: Positive for: Soft, Tenderness (exquisite suprapubic tenderness). Negative for: Mass, Distended, Guarding, Rebound Back: Positive for: Normal Inspection. Negative for: Decreased ROM Extremity: Positive for: Normal ROM. Negative for: Deformity Lymphatic: Negative for: Adenopathy Neurologic/Psych: Positive for: Alert, Oriented Comments: Patient refused pelvic exam due to discomfort from pelvic pain. - Laboratory Results Result Diagrams: 03/16/18 19:53 03/16/18 19:53 - ECG O2 Sat by Pulse Oximetry: 99 (RA) Pulse Ox Interpretation: Normal Medical Decision Making Medical Decision Making: Impression: Pelvic pain and abnormal vaginal bleeding, asymptomatic hypoglycemia Pt given food in ER to improve hypoglycemia. Differential: Including but not limited to fibroids, ovarian cysts, ovarian torsion, endometriosis, adverse reaction to medicine Plan: -- Labs -- Accucheck -- IV Fluids -- Toradol 30mg IV Labs demonstrate hyperglycemia but no DKA. 2015 US Pelvis/Transvaginal FINDINGS: Uterus/cervix: No myometrial mass. Endometrium: 0.6 cm in thickness. Right ovary: No mass. Small follicles. Normal flow. Left ovary: No mass. Small follicles. Normal flow. Free fluid: No significant free fluid. IMPRESSION: 1. No acute findings. 2057 Patient reports feeling much better. Labs reviewed and patient is not in DKA. Advised to continue insulin coverage at home and strict diabetic diet. DW pt US findings. Patient advised to f/u with LATIN PROFESSOR and states she has made an appointment for f/u on 04/03/18. Will rx tramadol and ibuprofen for pain. Stable for discharge. Scribe Attestation: Documented by Michelle Smith, acting as a scribe for Kika Sams MD. Provider Scribe Attestation: All medical record entries made by the Scribe were at my direction and personally dictated by me. I have reviewed the chart and agree that the record accurately reflects my personal performance of the history, physical exam, medical decision making, and the department course for this patient. I have also personally directed, reviewed, and agree with the discharge instructions and disposition. Disposition - Clinical Impression Clinical Impression: Dysmenorrhea - Disposition Referrals: Pradeep Mojica MD [Staff Provider] - Disposition: Routine/Home Disposition Time: 21:00 Condition: IMPROVED Prescriptions: Ibuprofen [Motrin Tab] 600 mg PO Q8 PRN #60 tab PRN Reason: Pain, Moderate (4-7) traMADol [Ultram] 50 mg PO TID PRN #15 tab PRN Reason: SEVERE PAIN ONLY Instructions: Menstrual Cramps (DC), Acute Pelvic Pain (DC)
[2018-03-16 20:07] LABS: INR 1.1; PROTHROMBIN TIME 11.9 Seconds (9.8-13.1)
[2018-03-16 20:09] LABS: PARTIAL THROMBOPLASTIN TIME 29.2 Seconds (25.6-37.1)
[2018-03-16 20:21] LABS: ALB/GLOB RATIO 1.1 (1.0-2.1); ALBUMIN 4.3 g/dL (3.5-5.0); ALT/SGPT 22 U/L (9-52); AST/SGOT 59 U/L (14-36); BLOOD UREA NITROGEN 8 mg/dl (7-17); CALCIUM 9.2 mg/dL (8.4-10.2); GFR NON-AFRICAN AMERICAN > 60
[2018-03-16 21:24] VITALS: BP 112/64; PULSE 100; RESP 18; TEMP 98.6
[2018-03-17 00:08] VITALS: O2SAT 99
[2018-03-17] MEDS ORDERED: Dextrose 50% SYRINGE Inj (50 ml) ONE (04:38)
--- NOTE | 2018-03-17 10:12 | US ---
Date of service: 03/16/2018 HISTORY: vaginal bleeding COMPARISON: None available. TECHNIQUE: Transvaginal pelvic ultrasound was performed. FINDINGS: UTERUS: Measures 8.6 x 4.5 x 3.8 cm. Anteverted, normal in size and appearance. No fibroid or other mass lesion seen. ENDOMETRIUM: Measures 6.4 mm in diameter. Unremarkable. CERVIX: No cervical abnormality identified. RIGHT OVARY: Measures 2.9 x 2.1 x 1.8 cm. No solid mass. Normal flow. LEFT OVARY: Measures 2.5 x 2.3 x 1.4 cm. No solid mass. Normal flow. FREE FLUID: No significant free fluid noted. OTHER FINDINGS: None. IMPRESSION: Normal pelvic ultrasound. A preliminary report was provided by [employer] services.
== END 2018-03-16 21:40 | disposition home or self-care (01) ==
LOC: H.ER 18:10
DX: N94.6 Dysmenorrhea, unspecified (principal); E11.65 Type 2 diabetes mellitus with hyperglycemia; F17.200 Nicotine dependence, unspecified, uncomplicated; Z79.4 Long term (current) use of insulin
CPT/HCPCS: 76830; 80053; 82803; 82948; 83930; 85025; 85610; 85730; 86850; 86900; 96360; 99283; J1885; J7030

== ENCOUNTER 2018-03-17 00:42 | Inpatient (IN) | payer OTHER ==
[2018-03-17 00:43] VITALS: BMI 23.9
[2018-03-17] MEDS ORDERED: Insulin Regular 100 units/ml IV STA (01:45)
[2018-03-17] MEDS ORDERED: Sodium Chloride 0.9% 1,000 ML IV STA ×2 (01:45→02:21)
--- NOTE | 2018-03-17 01:53 | ED PDOC ---
HPI: General Adult Time Seen by Provider: 03/17/18 01:40 Chief Complaint (Nursing): GI Problem Chief Complaint (Provider): vomiting History Per: Patient History/Exam Limitations: no limitations Onset/Duration Of Symptoms: Hrs Current Symptoms Are (Timing): Still Present Additional Complaint(s): 27 y/o female presents for evaluation of vomiting x 3 hours. 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 Patient states she was given food and labs were checked and stable and she was discharged after improvement of symptoms. Patient states when she got home vomiting returned and had an "acidic" smell to it. Patient states she feels as if she is in DKA again. Patient states she has not taken her insulin in 24 hours because she has not eaten anything. Patient denies fever, headache, dizziness, chest pain, shortness of breath, palpitations, changes in bowel movements, urinary symptoms. Past Medical History Reviewed: Historical Data, Nursing Documentation, Vital Signs Vital Signs: Last Vital Signs Temp 101.2 F H 03/17/18 05:45 Pulse 105 H 03/17/18 03:24 Resp 18 03/17/18 03:24 BP 119/74 03/17/18 03:24 Pulse Ox 100 03/17/18 05:38 - Medical History PMH: Bronchitis, Diabetes (type 1) Denies: Anxiety, Bipolar Disorder, Depression, HIV, Paranoia, Post Traumatic Stress Disorder, Chronic Kidney Disease, Schizophrenia - Surgical History Surgical History: (x2) - Family History Family History: States: Unknown Family Hx, Hypertension - Immunization History Hx Tetanus Toxoid Vaccination: No Hx Influenza Vaccination: No Hx Pneumococcal Vaccination: No - Home Medications Home Medications: Ambulatory Orders Medication Instructions Recorded Insulin Lispro [Humalog (Insulin 20 unit SQ AC 03/17/18 Lispro)] - Allergies Allergies/Adverse Reactions: Allergies Allergy/AdvReac Type Severity Reaction Status Date / Time No Known Allergies Allergy Verified 03/17/18 01:30 Review of Systems ROS Statement: Except As Marked, All Systems Reviewed And Found Negative Gastrointestinal: Positive for: Nausea, Vomiting Physical Exam - Reviewed Nursing Documentation Reviewed: Yes Vital Signs Reviewed: Yes - Physical Exam Appears: Positive for: Well, Non-toxic, Uncomfortable Head Exam: Positive for: ATRAUMATIC, NORMAL INSPECTION, NORMOCEPHALIC Skin: Positive for: Normal Color Eye Exam: Positive for: Normal appearance ENT: Positive for: Normal ENT Inspection Cardiovascular/Chest: Positive for: Regular Rate, Rhythm Respiratory: Positive for: Normal Breath Sounds Gastrointestinal/Abdominal: Positive for: Bowel Sounds, Soft, Tenderness (upper abdominal discomfort to palpation) Back: Positive for: Normal Inspection Extremity: Positive for: Normal ROM Neurologic/Psych: Positive for: Alert, Oriented (x3) - Laboratory Results Result Diagrams: 03/17/18 02:10 03/17/18 02:10 - ECG ECG: Positive for: Viewed By Me (reviewed by ED attending) ECG Rhythm: Positive for: Sinus Tachycardia O2 Sat by Pulse Oximetry: 100 Pulse Ox Interpretation: Normal - Progress ED Course And Treament: labs, IV insulin, IV fluids, IV zofran lab findings c/w DKA. Findings discussed with patient, who is now agreeable to admission Insulin drip ordered Dr. Lucas discussed case with Dr. Jj, food consultant on-call, for placement in ICU Dr. Lucas discussed case with Dr. Small, medical service on-call, regarding admission Disposition - Clinical Impression Clinical Impression: DKA (diabetic ketoacidoses) - Patient ED Disposition Is Patient to be Admitted: Yes - Disposition Disposition Time: 02:20 Condition: CRITICAL
[2018-03-17] MEDS ORDERED: Insulin Regular 100 units/ml ONE (02:16)
[2018-03-17 02:17] LABS: ABG ALLEN TEST YES; ARTERIAL BLOOD GAS HCO3 8.8 mmol/L (21-28); ARTERIAL BLOOD GAS O2 SAT 99.6 % (95-98); ARTERIAL BLOOD GAS PCO2 12 mm/Hg (35-45); ARTERIAL BLOOD GAS PO2 142 mm/Hg (80-100); ARTERIAL BLOOD GAS TCO2 5.1 mmol/L (22-28)
[2018-03-17 02:20] LABS: BASO % 0.6 % (0.0-2.0); EOS % 0.5 % (0.0-4.0); HEMOGLOBIN 11.1 g/dL (12.0-16.0); LYMPH % 12.7 % (20.0-40.0); MEAN CELL VOLUME 86.6 fl (81.0-99.0); MEAN CORPUSCULAR HEMOGLOBIN 27.7 pg (27.0-31.0); MEAN CORPUSCULAR HGB CONC 31.9 g/dL (33.0-37.0); MEAN PLATELET VOLUME 7.2 fl (7.2-11.7); MONO # 0.6 K/uL (0.0-0.8); MONO % 7.8 % (0.0-10.0); NEUT # 5.9 K/uL (1.8-7.0); NEUT % 78.4 % (50.0-75.0); RED CELL DISTRIBUTION WIDTH 15.8 % (11.5-14.5); WHITE BLOOD COUNT 7.5 K/uL (4.8-10.8)
[2018-03-17 02:50] LABS: ALB/GLOB RATIO 1.2 (1.0-2.1); ALBUMIN 3.9 g/dL (3.5-5.0); ALT/SGPT 26 U/L (9-52); AST/SGOT 38 U/L (14-36); BLOOD UREA NITROGEN 12 mg/dl (7-17); CALCIUM 8.9 mg/dL (8.4-10.2); GFR NON-AFRICAN AMERICAN > 60; LIPASE 38 U/L (23-300)
[2018-03-17 03:35] LABS: SQUAMOUS EPITHIAL < 1 /hpf (0-5); URINE BACTERIA RARE (<OCC); URINE BILIRUBIN NEGATIVE (NEGATIVE); URINE BLOOD MODERATE (NEGATIVE); URINE CLARITY CLEAR (Clear); URINE COLOR STRAW (YELLOW); URINE GLUCOSE (UA) >=500 mg/dL (Normal); URINE LEUKOCYTE ESTERASE NEG Leu/uL (Negative); URINE PROTEIN 100 mg/dL (NEGATIVE); URINE UROBILINOGEN 0.2-1.0 mg/dL (0.2-1.0)
--- NOTE | 2018-03-17 03:45 | CP.PCM.CON ---
History of Present Illness - History of Present Illness History of Present Illness: Attending: Dr Small Reason for consult: Critical care Management Chief Complaint: Intractable vomiting The patient was seen and examined in the ED HPI: The hx was obtained from the patient and after review of the medial records. She is a 27 years old female with hx of DM I and multiple admissions for DKA. She returns to the ED with complaint of protracted vomiting. This is her 3rd visit ot the ED in 36 hours. Initially she came and dx with DKA. She signed AMA. She returned last PM with no DKA but with abdominal pains and vaginal bleed and was discharged with diagnosis of menstrual cramps. Now 5 hours later she returns with vomiting and a Blood glucose of .500mg/dl and Ph of 7.20, CO2 of 7 and anion gap of 30 with lactate of 4.2. She had not taken her Insulin in 24hours. She refers mild headache and lightheadedness. less abdominal pain, no diarrhea nor urinary symptoms. PMH: IDDM PSH: Cesarian Section X2; insulin Pump insertion; Right thigh abscess with I&D in 2006 SH: Light smoker; drinks Alcohol socially; No illegal drug use; live with family FH: HTN Allergies: NKDA Medication: Reviewed Review of Systems - Constitutional Constitutional: Headache. absent: Anorexia, Chills, Fever - EENT Eyes: absent: Blurred Vision, Floaters, Requires Corrective Lenses Ears: absent: Decreased Hearing, Ear Discharge Nose/Mouth/Throat: absent: Epistaxis, Nasal Congestion, Dental Pain, Dry Mouth - Cardiovascular Cardiovascular: absent: Chest Pain, Dyspnea, Edema - Respiratory Respiratory: absent: Cough, Dyspnea, Wheezing, Stridor - Gastrointestinal Gastrointestinal: Abdominal Pain, Vomiting. absent: Constipation, Diarrhea - Genitourinary Genitourinary: absent: Dysuria, Flank Pain, Urinary Frequency - Menstruation Menstruation: Abnormal Vaginal Bleeding - Musculoskeletal Musculoskeletal: absent: Back Pain, Muscle Weakness - Integumentary Integumentary: absent: Pruritus, Rash, Skin Ulcer, Sores, Striae, Swelling - Neurological Neurological: absent: Confusion, Focal Weakness, Weakness - Psychiatric Psychiatric: absent: Anxiety, Depression, Panic Attacks - Endocrine Endocrine: Polydipsia, Polyuria. absent: Palpitations - Hematologic/Lymphatic Hematologic: absent: Easy Bleeding, Easy Bruising Past Patient History - Infectious Disease Hx of Infectious Diseases: None - Tetanus Immunizations Tetanus Immunization: Unknown - Past Medical History & Family History Past Medical History?: Yes - Past Social History Smoking Status: Light Smoker < 10 Cigarettes Daily Chewing Tobacco Use: No Cigar Use: No Alcohol: Social Home Situation {Lives}: With Family - CARDIAC Hx Cardiac Disorders: No - PULMONARY Hx Bronchitis: Yes - NEUROLOGICAL Hx Neurological Disorder: No - HEENT Hx HEENT Problems: No - RENAL Hx Chronic Kidney Disease: No - ENDOCRINE/METABOLIC Hx Endocrine Disorders: Yes (type 1 DM) Hx Diabetes Mellitus Type 1: Yes - HEMATOLOGICAL/ONCOLOGICAL Hx Blood Disorders: No Hx Human Immunodeficiency Virus (HIV): No - INTEGUMENTARY Hx Dermatological Problems: No - MUSCULOSKELETAL/RHEUMATOLOGICAL Hx Musculoskeletal Disorders: No Hx Falls: No - GASTROINTESTINAL Hx Gastrointestinal Disorders: No - GENITOURINARY/GYNECOLOGICAL Hx Genitourinary Disorders: No - PSYCHIATRIC Hx Anxiety: No Hx Bipolar Disorder: No Hx Depression: No Hx Paranoia: No Hx Post Traumatic Stress Disorder: No Hx Schizophrenia: No - SURGICAL HISTORY Hx Surgeries: Yes Hx Section: Yes (x2) Other/Comment: rt thigh abcess I&D (2006) / insulin pump - ANESTHESIA Hx Anesthesia: Yes Hx Anesthesia Reactions: No Hx Malignant Hyperthermia: No Meds Allergies/Adverse Reactions: Allergies Allergy/AdvReac Type Severity Reaction Status Date / Time No Known Allergies Allergy Verified 03/17/18 01:30 - Medications Medications: Current Medications Insulin Human Regular 100 (units/ Sodium Chloride) 101 mls @ 6.06 mls/hr IV .[id number] LANETTE; 6 UNITS/HR PRN Reason: Protocol Last Admin: 03/17/18 03:24 Dose: 2 mls/hr Physical Exam - Constitutional Appears: No Acute Distress - Head Exam Head Exam: ATRAUMATIC, NORMAL INSPECTION, NORMOCEPHALIC - Eye Exam Eye Exam: EOMI, Normal appearance Pupil Exam: NORMAL ACCOMODATION, PERRL - ENT Exam ENT Exam: Mucous Membranes Moist, Normal Exam, Normal External Ear Exam - Neck Exam Neck exam: Positive for: Full Rom, Normal Inspection. Negative for: Lymphadenopathy, Tenderness - Respiratory Exam Respiratory Exam: Clear to Auscultation Bilateral. absent: Rales, Rhonchi, Wheezes - Cardiovascular Exam Cardiovascular Exam: REGULAR RHYTHM, RRR, +S1, +S2. absent: Gallop, JVD - GI/Abdominal Exam GI & Abdominal Exam: Normal Bowel Sounds, Soft. absent: Mass, Organomegaly Additional comments: Mild tenderness on palpation of the pelvic region, no guarding, no rebound. - Rectal Exam Rectal Exam: Deferred - Extremities Exam Extremities exam: Positive for: normal inspection. Negative for: joint swelling , pedal edema, tenderness - Back Exam Back exam: NORMAL INSPECTION. absent: CVA tenderness (L), CVA tenderness (R) - Neurological Exam Neurological exam: Alert, CN II-XII Intact, Oriented x3, Reflexes Normal - Psychiatric Exam Psychiatric exam: Normal Affect, Normal Mood - Skin Skin Exam: Dry, Normal Color, Warm Results - Vital Signs Recent Vital Signs: Last Vital Signs Temp 98.9 F 03/17/18 01:30 Pulse 105 H 03/17/18 03:24 Resp 18 03/17/18 03:24 BP 119/74 03/17/18 03:24 Pulse Ox 98 03/17/18 03:24 - Labs Result Diagrams: 03/17/18 02:10 03/17/18 02:10 Labs: Laboratory Results - last 24 hr 03/17/18 03/17/18 03/17/18 01:31 02:02 02:10 WBC 7.5 RBC 4.00 Hgb 11.1 L Hct 34.7 MCV 86.6 D MCH 27.7 MCHC 31.9 L RDW 15.8 H Plt Count 265 MPV 7.2 Neut % (Auto) 78.4 H Lymph % (Auto) 12.7 L [place] % (Auto) 7.8 Eos % (Auto) 0.5 Baso % (Auto) 0.6 Neut # (Auto) 5.9 Lymph # (Auto) 1.0 [place] # (Auto) 0.6 Eos # (Auto) 0.0 Baso # (Auto) 0.0 pCO2 12 L* pO2 142 H HCO3 8.8 L* ABG pH 7.20 L ABG Total CO2 5.1 L ABG O2 Saturation 99.6 H ABG Base Excess -20.7 L Rivera Test Yes ABG Potassium 3.1 L A-a O2 Difference -7.0 Sodium 135.0 Chloride 103.0 Glucose 415 H* D Lactate 4.2 H* FiO2 21.0 Crit Value Called To Sharon alba Crit Value Called By Wiley Crit Value Read Back Y Blood Gas Notified Time 217 Potassium Carbon Dioxide Anion Gap BUN Creatinine Est GFR ( Amer) Est GFR (Non-Af Amer) POC Glucose (mg/dL) > 500 H* Random Glucose Calcium Total Bilirubin AST ALT Alkaline Phosphatase Total Protein Albumin Globulin Albumin/Globulin Ratio Lipase Arterial Blood Potassium 3.1 L Urine Color Urine Clarity Urine pH Ur Specific [place] Urine Protein Urine Glucose (UA) Urine Ketones Urine Blood Urine Nitrate Urine Bilirubin Urine Urobilinogen Ur Leukocyte Esterase Urine RBC (Auto) Urine Microscopic WBC Ur Squamous Epith Cells Urine Bacteria 03/17/18 03/17/18 02:10 03:22 WBC RBC Hgb Hct MCV MCH MCHC RDW Plt Count MPV Neut % (Auto) Lymph % (Auto) [place] % (Auto) Eos % (Auto) Baso % (Auto) Neut # (Auto) Lymph # (Auto) [place] # (Auto) Eos # (Auto) Baso # (Auto) pCO2 pO2 HCO3 ABG pH ABG Total CO2 ABG O2 Saturation ABG Base Excess Rivera Test ABG Potassium A-a O2 Difference Sodium 139 Chloride 106 Glucose Lactate FiO2 Crit Value Called To Crit Value Called By Crit Value Read Back Blood Gas Notified Time Potassium 3.5 L Carbon Dioxide 7 L* D Anion Gap 30 H BUN 12 Creatinine 0.8 Est GFR ( Amer) > 60 Est GFR (Non-Af Amer) > 60 POC Glucose (mg/dL) Random Glucose 457 H* D Calcium 8.9 Total Bilirubin 0.4 AST 38 H D ALT 26 Alkaline Phosphatase 134 H Total Protein 7.2 Albumin 3.9 Globulin 3.3 Albumin/Globulin Ratio 1.2 Lipase 38 Arterial Blood Potassium Urine Color Straw Urine Clarity Clear Urine pH 6.0 Ur Specific [place] 1.023 Urine Protein 100 Urine Glucose (UA) >=500 Urine Ketones 80 Urine Blood Moderate Urine Nitrate Negative Urine Bilirubin Negative Urine Urobilinogen 0.2-1.0 Ur Leukocyte Esterase Neg Urine RBC (Auto) 2 Urine Microscopic WBC 2 Ur Squamous Epith Cells < 1 Urine Bacteria Rare - Imaging and Cardiology Trans Vaginal US Status: Report reviewed by me Additional comment: US Pelvis/Transvaginal FINDINGS: Uterus/cervix: No myometrial mass. Endometrium: 0.6 cm in thickness. Right ovary: No mass. Small follicles. Normal flow. Left ovary: No mass. Small follicles. Normal flow. Free fluid: No significant free fluid. IMPRESSION: 1. No acute findings. Assessment & Plan - Assessment and Plan (Free Text) Assessment: #. DKA #. Hypokalemia #. Menstrual Cramps. Plan: 27 years old female with hx of DM I and multiple admissions for DKA. She returns to the ED with complaint of protracted vomiting. This is her 3rd visit ot the ED in 36 hours. Initially she came and dx with DKA. She signed AMA. She returned last PM with no DKA but with abdominal pains and vaginal bleed and was discharged with diagnosis of menstrual cramps. Now 5 hours later she returns with vomiting and a Blood glucose of .500mg/dl and Ph of 7.20, CO2 of 7 and anion gap of 30 with lactate of 4.2. #. DKA - Consult Dr BILL endocrinology - IV Fluids NS 2Liters given in ED. When Blood glucose is less than 250mg/dl Change IV to include Dextrose - IV regular Insulin according to Linda Amanda for Vomiting #. Hypokalemia - Repleated - Maintenance of KCL in IV Fluid #. Menstrual Cramps. - pain management #. DVT prophylaxis with Lovenox #. Code Status: full - Date & Time Date: 03/17/18 Time: 03:45
[2018-03-17] MEDS ORDERED: Potassium Chl 20 mEq in NS 1,000 ML IV SCH (04:00)
[2018-03-17] MEDS ORDERED: Dextrose 50% SYRINGE Inj (50 ml) IVP ONE (04:29)
[2018-03-17] MEDS ORDERED: Potassium Chl 20 mEq in D5-NS 1,000 ML IV SCH ×2 (05:00→06:48)
[2018-03-17] MEDS ORDERED: HYDROmorphone 1 mg/ml ISec IVP PRN (08:20)
--- NOTE | 2018-03-17 08:42 | CARD ---
APPROVED REPORT Date of service: 03/17/2018 <Conclusion> Sinus tachycardia Otherwise normal ECG
[2018-03-17 09:06] LABS: SQUAMOUS EPITHIAL 6 /hpf (0-5); URINE BACTERIA RARE (<OCC); URINE BILIRUBIN NEGATIVE (NEGATIVE); URINE BLOOD SMALL (NEGATIVE); URINE CLARITY CLOUDY (Clear); URINE COLOR YELLOW (YELLOW); URINE GLUCOSE (UA) NEG (Normal); URINE LEUKOCYTE ESTERASE NEG Leu/uL (Negative); URINE PROTEIN NEGATIVE (NEGATIVE); URINE UROBILINOGEN 0.2-1.0 mg/dL (0.2-1.0)
[2018-03-17] MEDS: Ciprofloxacin 400mg/200ml D5W 400 MG/200 ML BAG IVPB SCH ×2 (09:58→20:18)
[2018-03-17] MEDS: Enoxaparin 40 mg Syringe SC SCH (10:07)
[2018-03-17] MEDS ORDERED: Dextrose 50% SYRINGE Inj (50 ml) IV PRN (11:58)
[2018-03-17] MEDS ORDERED: Glucagon Recombinant 1 mg Inj IM PRN (11:58)
--- NOTE | 2018-03-17 12:17 | CP.PCM.CON ---
<Carlitos Galvez - Last Filed: 03/17/18 13:24> History of Present Illness - History of Present Illness History of Present Illness: Consult note for ICU 27 y/o female patient admitted due to DKA. Patient was seen in ED the night before and found to be in DKA but signed out AMA due to child advocate issues; states she returned last night due to abdominal pain, back pain, vomiting, vaginal bleeding and was found to have a low glucose level, she was treated and she was discharged after improvement of symptoms. Hours later she returned c/o of vomiting and acid smell. Patient states she has not taken her insulin in 24 hours because she has not eaten anything. Otherwise she denies fever, headache, dizziness, chest pain, shortness of breath, palpitations, changes in bowel movements, urinary symptoms. PMH: IDDM PSH: Cesarian Section X2; insulin Pump insertion; Right thigh abscess with I&D in 2006 SH: Light smoker; drinks Alcohol socially; No illegal drug use; live with family FH: HTN Allergies: NKDA Medication: Reviewed ED labs: ABG: pH 7.20, CO2 7 and anion gap of 30 with lactate of 4.2 CMP: hypokalemia Review of Systems - Review of Systems All systems: reviewed and no additional remarkable complaints except (HPI) Past Patient History - Infectious Disease Hx of Infectious Diseases: None - Tetanus Immunizations Tetanus Immunization: Unknown - Past Medical History & Family History Past Medical History?: Yes - Past Social History Smoking Status: Never Smoked - CARDIAC Hx Cardiac Disorders: No - PULMONARY Hx Respiratory Disorders: No Hx Bronchitis: No - NEUROLOGICAL Hx Neurological Disorder: No - HEENT Hx HEENT Problems: No - RENAL Hx Chronic Kidney Disease: No - ENDOCRINE/METABOLIC Hx Endocrine Disorders: Yes (type 1) - HEMATOLOGICAL/ONCOLOGICAL Hx AIDS: No Hx Human Immunodeficiency Virus (HIV): No - INTEGUMENTARY Hx Dermatological Problems: No - MUSCULOSKELETAL/RHEUMATOLOGICAL Hx Musculoskeletal Disorders: No Hx Falls: No - GASTROINTESTINAL Hx Gastrointestinal Disorders: No - GENITOURINARY/GYNECOLOGICAL Hx Genitourinary Disorders: No - PSYCHIATRIC Hx Psychophysiologic Disorder: No Hx Anxiety: No Hx Bipolar Disorder: No Hx Depression: No Hx Paranoia: No Hx Post Traumatic Stress Disorder: No Hx Schizophrenia: No Hx Substance Use: No - SURGICAL HISTORY Hx Surgeries: Yes Hx Section: Yes (x2) Other/Comment: rt thigh abcess I&D (2006) / insulin pump c secetion - ANESTHESIA Hx Anesthesia: Yes Hx Anesthesia Reactions: No Hx Malignant Hyperthermia: No Has any member of the family had a problem w/ anesthesia?: No Meds Allergies/Adverse Reactions: Allergies Allergy/AdvReac Type Severity Reaction Status Date / Time No Known Allergies Allergy Verified 03/17/18 01:30 - Medications Medications: Current Medications Acetaminophen (Tylenol 325mg Tab) 650 mg PO Q4 PRN PRN Reason: Fever >100.4 F Last Admin: 03/17/18 05:45 Dose: 650 mg Dextrose (Dextrose 50% Inj) 0 ml IV STAT PRN; Protocol PRN Reason: Hypoglycemia Protocol Enoxaparin Sodium (Lovenox) 40 mg SC DAILY LANETTE PRN Reason: Protocol Last Admin: 03/17/18 10:07 Dose: Not Given Glucagon (Glucagen Diagnostic Kit) 0 mg IM STAT PRN; Protocol PRN Reason: Hypoglycemia Protocol Hydromorphone HCl (Dilaudid) 1 mg IVP Q4 PRN PRN Reason: Pain, moderate (4-7) Last Admin: 03/17/18 09:54 Dose: 1 mg Potassium Chloride/Dextrose/Sod Cl (Potassium Chl 20 Meq In D5-1/2ns) 1,000 mls @ 200 mls/hr IV .Q5H LANETTE Stop: 03/18/18 09:05 Ciprofloxacin (Cipro 400mg/200ml Dsw) 400 mg in 200 mls @ 200 mls/hr IVPB Q12 LANETTE PRN Reason: Protocol Last Admin: 03/17/18 09:58 Dose: 200 mls/hr Doxycycline Hyclate 100 mg/ (Sodium Chloride) 100 mls @ 100 mls/hr IVPB Q12 LANETTE PRN Reason: Protocol Insulin Human Regular 100 (units/ Sodium Chloride) 101 mls @ 5.05 mls/hr IV .Q20H LANETTE; 5 UNITS/HR PRN Reason: Protocol Ketorolac Tromethamine (Toradol) 15 mg IVP Q6 PRN PRN Reason: Pain, moderate (4-7) Ketorolac Tromethamine (Toradol) 30 mg IVP Q6 PRN PRN Reason: Pain, severe (8-10) Last Admin: 03/17/18 04:46 Dose: 30 mg Ondansetron HCl (Zofran Inj) 4 mg IVP Q4 PRN PRN Reason: Nausea/Vomiting Last Admin: 03/17/18 04:50 Dose: 4 mg Physical Exam - Constitutional Appears: No Acute Distress - Head Exam Head Exam: NORMAL INSPECTION - Eye Exam Eye Exam: EOMI, PERRL - ENT Exam ENT Exam: Mucous Membranes Dry - Respiratory Exam Respiratory Exam: Clear to Auscultation Bilateral. absent: Rhonchi, Wheezes - Cardiovascular Exam Cardiovascular Exam: REGULAR RHYTHM. absent: Systolic Murmur - GI/Abdominal Exam GI & Abdominal Exam: Normal Bowel Sounds, Soft. absent: Distended, Tenderness - Extremities Exam Extremities exam: Negative for: calf tenderness - Neurological Exam Neurological exam: Alert, Oriented x3 - Skin Skin Exam: Dry, Warm Results - Vital Signs Recent Vital Signs: Last Vital Signs Temp 99.6 F 03/17/18 11:08 Pulse 124 H 03/17/18 11:08 Resp 22 03/17/18 11:08 BP 105/54 L 03/17/18 11:08 Pulse Ox 98 03/17/18 11:08 - Labs Result Diagrams: 03/17/18 02:10 03/17/18 02:10 Labs: Laboratory Results - last 24 hr 03/17/18 03/17/18 03/17/18 01:31 02:02 02:10 WBC 7.5 RBC 4.00 Hgb 11.1 L Hct 34.7 MCV 86.6 D MCH 27.7 MCHC 31.9 L RDW 15.8 H Plt Count 265 MPV 7.2 Neut % (Auto) 78.4 H Lymph % (Auto) 12.7 L [place] % (Auto) 7.8 Eos % (Auto) 0.5 Baso % (Auto) 0.6 Neut # (Auto) 5.9 Lymph # (Auto) 1.0 [place] # (Auto) 0.6 Eos # (Auto) 0.0 Baso # (Auto) 0.0 pCO2 12 L* pO2 142 H HCO3 8.8 L* ABG pH 7.20 L ABG Total CO2 5.1 L ABG O2 Saturation 99.6 H ABG Base Excess -20.7 L Rivera Test Yes ABG Potassium 3.1 L A-a O2 Difference -7.0 Sodium 135.0 Chloride 103.0 Glucose 415 H* D Lactate 4.2 H* FiO2 21.0 Crit Value Called To Sharon alba Crit Value Called By 292 Crit Value Read Back Y Blood Gas Notified Time 217 Potassium Carbon Dioxide Anion Gap BUN Creatinine Est GFR ( Amer) Est GFR (Non-Af Amer) POC Glucose (mg/dL) > 500 H* Random Glucose Calcium Total Bilirubin AST ALT Alkaline Phosphatase Total Protein Albumin Globulin Albumin/Globulin Ratio Lipase Arterial Blood Potassium 3.1 L Urine Color Urine Clarity Urine pH Ur Specific [place] Urine Protein Urine Glucose (UA) Urine Ketones Urine Blood Urine Nitrate Urine Bilirubin Urine Urobilinogen Ur Leukocyte Esterase Urine RBC (Auto) Urine Microscopic WBC Ur Squamous Epith Cells Urine Bacteria 03/17/18 03/17/18 03/17/18 02:10 03:17 03:22 WBC RBC Hgb Hct MCV MCH MCHC RDW Plt Count MPV Neut % (Auto) Lymph % (Auto) [place] % (Auto) Eos % (Auto) Baso % (Auto) Neut # (Auto) Lymph # (Auto) [place] # (Auto) Eos # (Auto) Baso # (Auto) pCO2 pO2 HCO3 ABG pH ABG Total CO2 ABG O2 Saturation ABG Base Excess Rivera Test ABG Potassium A-a O2 Difference Sodium 139 Chloride 106 Glucose Lactate FiO2 Crit Value Called To Crit Value Called By Crit Value Read Back Blood Gas Notified Time Potassium 3.5 L Carbon Dioxide 7 L* D Anion Gap 30 H BUN 12 Creatinine 0.8 Est GFR ( Amer) > 60 Est GFR (Non-Af Amer) > 60 POC Glucose (mg/dL) 167 H Random Glucose 457 H* D Calcium 8.9 Total Bilirubin 0.4 AST 38 H D ALT 26 Alkaline Phosphatase 134 H Total Protein 7.2 Albumin 3.9 Globulin 3.3 Albumin/Globulin Ratio 1.2 Lipase 38 Arterial Blood Potassium Urine Color Straw Urine Clarity Clear Urine pH 6.0 Ur Specific [place] 1.023 Urine Protein 100 Urine Glucose (UA) >=500 Urine Ketones 80 Urine Blood Moderate Urine Nitrate Negative Urine Bilirubin Negative Urine Urobilinogen 0.2-1.0 Ur Leukocyte Esterase Neg Urine RBC (Auto) 2 Urine Microscopic WBC 2 Ur Squamous Epith Cells < 1 Urine Bacteria Rare 03/17/18 03/17/18 03/17/18 04:26 05:28 06:38 WBC RBC Hgb Hct MCV MCH MCHC RDW Plt Count MPV Neut % (Auto) Lymph % (Auto) [place] % (Auto) Eos % (Auto) Baso % (Auto) Neut # (Auto) Lymph # (Auto) [place] # (Auto) Eos # (Auto) Baso # (Auto) pCO2 pO2 HCO3 ABG pH ABG Total CO2 ABG O2 Saturation ABG Base Excess Rivera Test ABG Potassium A-a O2 Difference Sodium Chloride Glucose Lactate FiO2 Crit Value Called To Crit Value Called By Crit Value Read Back Blood Gas Notified Time Potassium Carbon Dioxide Anion Gap BUN Creatinine Est GFR ( Amer) Est GFR (Non-Af Amer) POC Glucose (mg/dL) 98 262 H 326 H Random Glucose Calcium Total Bilirubin AST ALT Alkaline Phosphatase Total Protein Albumin Globulin Albumin/Globulin Ratio Lipase Arterial Blood Potassium Urine Color Urine Clarity Urine pH Ur Specific [place] Urine Protein Urine Glucose (UA) Urine Ketones Urine Blood Urine Nitrate Urine Bilirubin Urine Urobilinogen Ur Leukocyte Esterase Urine RBC (Auto) Urine Microscopic WBC Ur Squamous Epith Cells Urine Bacteria 03/17/18 03/17/18 03/17/18 07:29 08:41 08:43 WBC RBC Hgb Hct MCV MCH MCHC RDW Plt Count MPV Neut % (Auto) Lymph % (Auto) [place] % (Auto) Eos % (Auto) Baso % (Auto) Neut # (Auto) Lymph # (Auto) [place] # (Auto) Eos # (Auto) Baso # (Auto) pCO2 pO2 HCO3 ABG pH ABG Total CO2 ABG O2 Saturation ABG Base Excess Rivera Test ABG Potassium A-a O2 Difference Sodium Chloride Glucose Lactate FiO2 Crit Value Called To Crit Value Called By Crit Value Read Back Blood Gas Notified Time Potassium Carbon Dioxide Anion Gap BUN Creatinine Est GFR ( Amer) Est GFR (Non-Af Amer) POC Glucose (mg/dL) 244 H 134 H Random Glucose Calcium Total Bilirubin AST ALT Alkaline Phosphatase Total Protein Albumin Globulin Albumin/Globulin Ratio Lipase Arterial Blood Potassium Urine Color Yellow Urine Clarity Cloudy Urine pH 5.0 Ur Specific [place] 1.025 Urine Protein Negative Urine Glucose (UA) Neg Urine Ketones Negative Urine Blood Small Urine Nitrate Negative Urine Bilirubin Negative Urine Urobilinogen 0.2-1.0 Ur Leukocyte Esterase Neg Urine RBC (Auto) 6 H Urine Microscopic WBC 2 Ur Squamous Epith Cells 6 H Urine Bacteria Rare 03/17/18 03/17/18 10:06 11:37 WBC RBC Hgb Hct MCV MCH MCHC RDW Plt Count MPV Neut % (Auto) Lymph % (Auto) [place] % (Auto) Eos % (Auto) Baso % (Auto) Neut # (Auto) Lymph # (Auto) [place] # (Auto) Eos # (Auto) Baso # (Auto) pCO2 pO2 HCO3 ABG pH ABG Total CO2 ABG O2 Saturation ABG Base Excess Rivera Test ABG Potassium A-a O2 Difference Sodium Chloride Glucose Lactate FiO2 Crit Value Called To Crit Value Called By Crit Value Read Back Blood Gas Notified Time Potassium Carbon Dioxide Anion Gap BUN Creatinine Est GFR ( Amer) Est GFR (Non-Af Amer) POC Glucose (mg/dL) 312 H 385 H Random Glucose Calcium Total Bilirubin AST ALT Alkaline Phosphatase Total Protein Albumin Globulin Albumin/Globulin Ratio Lipase Arterial Blood Potassium Urine Color Urine Clarity Urine pH Ur Specific [place] Urine Protein Urine Glucose (UA) Urine Ketones Urine Blood Urine Nitrate Urine Bilirubin Urine Urobilinogen Ur Leukocyte Esterase Urine RBC (Auto) Urine Microscopic WBC Ur Squamous Epith Cells Urine Bacteria Assessment & Plan - Assessment and Plan (Free Text) Assessment: 27 years old female with hx of DM I and multiple admissions for DKA admitted for DKA. DKA - Admit to ICU - ABG: pH7.20, CO2 7 and anion gap of 30 with lactate of 4.2 - Glucose 385 now - on insulin drip - Consult Dr Gallego endocrinology - Continue IV Fluids NS - Zofran for Vomiting - BMP q4 - Hypoglycemia protocol Hypokalemia - Repleted - Maintenance of KCL in IV Fluid DVT prophylaxis with Lovenox Code Status: full code Case seen and examined with Dr Mota, ICU attending. <Mikie Mota - Last Filed: 03/17/18 15:27> Meds - Medications Medications: Current Medications Acetaminophen (Tylenol 325mg Tab) 650 mg PO Q4 PRN PRN Reason: Fever >100.4 F Last Admin: 03/17/18 05:45 Dose: 650 mg Al Hydrox/Mg Hydrox/Simethicone (Maalox Plus 30 Ml) 30 ml PO Q4 PRN PRN Reason: Indigestion / Heartburn Dextrose (Dextrose 50% Inj) 0 ml IV STAT PRN; Protocol PRN Reason: Hypoglycemia Protocol Enoxaparin Sodium (Lovenox) 40 mg SC DAILY [place]ETTE PRN Reason: Protocol Last Admin: 03/17/18 10:07 Dose: Not Given Glucagon (Glucagen Diagnostic Kit) 0 mg IM STAT PRN; Protocol PRN Reason: Hypoglycemia Protocol Hydromorphone HCl (Dilaudid) 1 mg IVP Q4 PRN PRN Reason: Pain, moderate (4-7) Last Admin: 03/17/18 09:54 Dose: 1 mg Potassium Chloride/Dextrose/Sod Cl (Potassium Chl 20 Meq In D5-1/2ns) 1,000 mls @ 200 mls/hr IV .Q5H [facility]ETTE Stop: 03/18/18 09:05 Last Admin: 03/17/18 15:19 Dose: 200 mls/hr Ciprofloxacin (Cipro 400mg/200ml Dsw) 400 mg in 200 mls @ 200 mls/hr IVPB Q12 [place]TE PRN Reason: Protocol Last Admin: 03/17/18 09:58 Dose: 200 mls/hr Doxycycline Hyclate 100 mg/ (Sodium Chloride) 100 mls @ 100 mls/hr IVPB Q12 [facility]ETTE PRN Reason: Protocol Last Admin: 03/17/18 12:37 Dose: 100 mls/hr Insulin Human Regular 100 (units/ Sodium Chloride) 101 mls @ 5.05 mls/hr IV .Q20H [facility]ETTE; 5 UNITS/HR PRN Reason: Protocol Last Titration: 03/17/18 15:08 Dose: 2 units/hr, 2.02 mls/hr Magnesium Sulfate 1 gm/ (Dextrose) 102 mls @ 204 mls/hr IVPB Q1 LANETTE PRN Reason: 2 GM/HR Stop: 03/17/18 16:29 Last Admin: 03/17/18 15:26 Dose: 204 mls/hr Ketorolac Tromethamine (Toradol) 15 mg IVP Q6 PRN PRN Reason: Pain, moderate (4-7) Ketorolac Tromethamine (Toradol) 30 mg IVP Q6 PRN PRN Reason: Pain, severe (8-10) Last Admin: 03/17/18 04:46 Dose: 30 mg Ondansetron HCl (Zofran Inj) 4 mg IVP Q4 PRN PRN Reason: Nausea/Vomiting Last Admin: 03/17/18 04:50 Dose: 4 mg Pantoprazole Sodium (Protonix Inj) 40 mg IVP Q12 LANETTE Results - Vital Signs Recent Vital Signs: Last Vital Signs Temp 98.7 F 03/17/18 12:00 Pulse 133 H 03/17/18 14:00 Resp 29 H 03/17/18 14:00 BP 119/69 03/17/18 14:00 Pulse Ox 100 03/17/18 14:00 - Labs Result Diagrams: 03/17/18 02:10 03/17/18 11:53 Labs: Laboratory Results - last 24 hr 03/17/18 03/17/18 03/17/18 01:31 02:02 02:10 WBC 7.5 RBC 4.00 Hgb 11.1 L Hct 34.7 MCV 86.6 D MCH 27.7 MCHC 31.9 L RDW 15.8 H Plt Count 265 MPV 7.2 Neut % (Auto) 78.4 H Lymph % (Auto) 12.7 L [place] % (Auto) 7.8 Eos % (Auto) 0.5 Baso % (Auto) 0.6 Neut # (Auto) 5.9 Lymph # (Auto) 1.0 [place] # (Auto) 0.6 Eos # (Auto) 0.0 Baso # (Auto) 0.0 pCO2 12 L* pO2 142 H HCO3 8.8 L* ABG pH 7.20 L ABG Total CO2 5.1 L ABG O2 Saturation 99.6 H ABG Base Excess -20.7 L Rivera Test Yes ABG Potassium 3.1 L A-a O2 Difference -7.0 Sodium 135.0 Chloride 103.0 Glucose 415 H* D Lactate 4.2 H* FiO2 21.0 Crit Value Called To Sharon alba Crit Value Called By [facility] Crit Value Read Back Y Blood Gas Notified Time 217 Potassium Carbon Dioxide Anion Gap BUN Creatinine Est GFR ( Amer) Est GFR (Non-Af Amer) POC Glucose (mg/dL) > 500 H* Random Glucose Calcium Phosphorus Magnesium Total Bilirubin AST ALT Alkaline Phosphatase Total Protein Albumin Globulin Albumin/Globulin Ratio Lipase Arterial Blood Potassium 3.1 L Urine Color Urine Clarity Urine pH Ur Specific [place] Urine Protein Urine Glucose (UA) Urine Ketones Urine Blood Urine Nitrate Urine Bilirubin Urine Urobilinogen Ur Leukocyte Esterase Urine RBC (Auto) Urine Microscopic WBC Ur Squamous Epith Cells Urine Bacteria 03/17/18 03/17/18 03/17/18 02:10 03:17 03:22 WBC RBC Hgb Hct MCV MCH MCHC RDW Plt Count MPV Neut % (Auto) Lymph % (Auto) [place] % (Auto) Eos % (Auto) Baso % (Auto) Neut # (Auto) Lymph # (Auto) [place] # (Auto) Eos # (Auto) Baso # (Auto) pCO2 pO2 HCO3 ABG pH ABG Total CO2 ABG O2 Saturation ABG Base Excess Rivera Test ABG Potassium A-a O2 Difference Sodium 139 Chloride 106 Glucose Lactate FiO2 Crit Value Called To Crit Value Called By Crit Value Read Back Blood Gas Notified Time Potassium 3.5 L Carbon Dioxide 7 L* D Anion Gap 30 H BUN 12 Creatinine 0.8 Est GFR ( Amer) > 60 Est GFR (Non-Af Amer) > 60 POC Glucose (mg/dL) 167 H Random Glucose 457 H* D Calcium 8.9 Phosphorus Magnesium Total Bilirubin 0.4 AST 38 H D ALT 26 Alkaline Phosphatase 134 H Total Protein 7.2 Albumin 3.9 Globulin 3.3 Albumin/Globulin Ratio 1.2 Lipase 38 Arterial Blood Potassium Urine Color Straw Urine Clarity Clear Urine pH 6.0 Ur Specific [place] 1.023 Urine Protein 100 Urine Glucose (UA) >=500 Urine Ketones 80 Urine Blood Moderate Urine Nitrate Negative Urine Bilirubin Negative Urine Urobilinogen 0.2-1.0 Ur Leukocyte Esterase Neg Urine RBC (Auto) 2 Urine Microscopic WBC 2 Ur Squamous Epith Cells < 1 Urine Bacteria Rare 03/17/18 03/17/18 03/17/18 04:26 05:28 06:38 WBC RBC Hgb Hct MCV MCH MCHC RDW Plt Count MPV Neut % (Auto) Lymph % (Auto) [place] % (Auto) Eos % (Auto) Baso % (Auto) Neut # (Auto) Lymph # (Auto) [place] # (Auto) Eos # (Auto) Baso # (Auto) pCO2 pO2 HCO3 ABG pH ABG Total CO2 ABG O2 Saturation ABG Base Excess Rivera Test ABG Potassium A-a O2 Difference Sodium Chloride Glucose Lactate FiO2 Crit Value Called To Crit Value Called By Crit Value Read Back Blood Gas Notified Time Potassium Carbon Dioxide Anion Gap BUN Creatinine Est GFR ( Amer) Est GFR (Non-Af Amer) POC Glucose (mg/dL) 98 262 H 326 H Random Glucose Calcium Phosphorus Magnesium Total Bilirubin AST ALT Alkaline Phosphatase Total Protein Albumin Globulin Albumin/Globulin Ratio Lipase Arterial Blood Potassium Urine Color Urine Clarity Urine pH Ur Specific [place] Urine Protein Urine Glucose (UA) Urine Ketones Urine Blood Urine Nitrate Urine Bilirubin Urine Urobilinogen Ur Leukocyte Esterase Urine RBC (Auto) Urine Microscopic WBC Ur Squamous Epith Cells Urine Bacteria 03/17/18 03/17/18 03/17/18 07:29 08:41 08:43 WBC RBC Hgb Hct MCV MCH MCHC RDW Plt Count MPV Neut % (Auto) Lymph % (Auto) [place] % (Auto) Eos % (Auto) Baso % (Auto) Neut # (Auto) Lymph # (Auto) [place] # (Auto) Eos # (Auto) Baso # (Auto) pCO2 pO2 HCO3 ABG pH ABG Total CO2 ABG O2 Saturation ABG Base Excess Rivera Test ABG Potassium A-a O2 Difference Sodium Chloride Glucose Lactate FiO2 Crit Value Called To Crit Value Called By Crit Value Read Back Blood Gas Notified Time Potassium Carbon Dioxide Anion Gap BUN Creatinine Est GFR ( Amer) Est GFR (Non-Af Amer) POC Glucose (mg/dL) 244 H 134 H Random Glucose Calcium Phosphorus Magnesium Total Bilirubin AST ALT Alkaline Phosphatase Total Protein Albumin Globulin Albumin/Globulin Ratio Lipase Arterial Blood Potassium Urine Color Yellow Urine Clarity Cloudy Urine pH 5.0 Ur Specific [place] 1.025 Urine Protein Negative Urine Glucose (UA) Neg Urine Ketones Negative Urine Blood Small Urine Nitrate Negative Urine Bilirubin Negative Urine Urobilinogen 0.2-1.0 Ur Leukocyte Esterase Neg Urine RBC (Auto) 6 H Urine Microscopic WBC 2 Ur Squamous Epith Cells 6 H Urine Bacteria Rare 03/17/18 03/17/18 03/17/18 10:06 11:37 11:53 WBC RBC Hgb Hct MCV MCH MCHC RDW Plt Count MPV Neut % (Auto) Lymph % (Auto) [place] % (Auto) Eos % (Auto) Baso % (Auto) Neut # (Auto) Lymph # (Auto) [place] # (Auto) Eos # (Auto) Baso # (Auto) pCO2 pO2 HCO3 ABG pH ABG Total CO2 ABG O2 Saturation ABG Base Excess Rivera Test ABG Potassium A-a O2 Difference Sodium 134 Chloride 109 H Glucose Lactate FiO2 Crit Value Called To Crit Value Called By Crit Value Read Back Blood Gas Notified Time Potassium 4.2 Carbon Dioxide < 5 L* D Anion Gap 24 H BUN 9 Creatinine 0.8 Est GFR ( Amer) > 60 Est GFR (Non-Af Amer) > 60 POC Glucose (mg/dL) 312 H 385 H Random Glucose 491 H* Calcium 8.0 L Phosphorus 2.4 L Magnesium 1.5 L Total Bilirubin AST ALT Alkaline Phosphatase Total Protein Albumin Globulin Albumin/Globulin Ratio Lipase Arterial Blood Potassium Urine Color Urine Clarity Urine pH Ur Specific [place] Urine Protein Urine Glucose (UA) Urine Ketones Urine Blood Urine Nitrate Urine Bilirubin Urine Urobilinogen Ur Leukocyte Esterase Urine RBC (Auto) Urine Microscopic WBC Ur Squamous Epith Cells Urine Bacteria 03/17/18 03/17/18 14:06 15:07 WBC RBC Hgb Hct MCV MCH MCHC RDW Plt Count MPV Neut % (Auto) Lymph % (Auto) [place] % (Auto) Eos % (Auto) Baso % (Auto) Neut # (Auto) Lymph # (Auto) [place] # (Auto) Eos # (Auto) Baso # (Auto) pCO2 pO2 HCO3 ABG pH ABG Total CO2 ABG O2 Saturation ABG Base Excess Rivera Test ABG Potassium A-a O2 Difference Sodium Chloride Glucose Lactate FiO2 Crit Value Called To Crit Value Called By Crit Value Read Back Blood Gas Notified Time Potassium Carbon Dioxide Anion Gap BUN Creatinine Est GFR ( Amer) Est GFR (Non-Af Amer) POC Glucose (mg/dL) 264 H 155 H Random Glucose Calcium Phosphorus Magnesium Total Bilirubin AST ALT Alkaline Phosphatase Total Protein Albumin Globulin Albumin/Globulin Ratio Lipase Arterial Blood Potassium Urine Color Urine Clarity Urine pH Ur Specific [place] Urine Protein Urine Glucose (UA) Urine Ketones Urine Blood Urine Nitrate Urine Bilirubin Urine Urobilinogen Ur Leukocyte Esterase Urine RBC (Auto) Urine Microscopic WBC Ur Squamous Epith Cells Urine Bacteria Assessment & Plan - Assessment and Plan (Free Text) Assessment: Attestation: Patient seen and examined at the bedside with Resident Dr. Margarita Galvez; and I agree with her outline of plans and management documented above as discussed on AM rounds reflecting my review of all applicable clinical data, and participation in the care of the patient throughout the day in ICU; today, March 17, 2018. Patient well known to ICU service for frequent monthly episodes of DKA. GENERAL OPHTHALMOLOGIST eval order noted. Will continue IVFs, insulin drip until AG normalizes and / or serum bicarbonate exceeds 20. Frequent complaints of chest discomfort are recurrent, with negative w/u for any ischemic myocardial events. PPIs started.
--- NOTE | 2018-03-17 12:30 | CT ---
Date of service: 03/17/2018 PROCEDURE: CT Abdomen and Pelvis without intravenous contrast HISTORY: abdominal/pelvic pains COMPARISON: None. TECHNIQUE: Without contrast.. Contrast dose: 0 Radiation dose: Total exam DLP = 351.91 mGy-cm. This CT exam was performed using one or more of the following dose reduction techniques: Automated exposure control, adjustment of the mA and/or kV according to patient size, and/or use of iterative reconstruction technique. FINDINGS: LOWER THORAX: Unremarkable. LIVER: Unremarkable. No gross lesion or ductal dilatation. GALLBLADDER AND BILE DUCTS: Unremarkable. PANCREAS: Unremarkable. No gross lesion or ductal dilatation. SPLEEN: Unremarkable. ADRENALS: Unremarkable. No mass. KIDNEYS AND URETERS: Punctate nonobstructing calcifications in both kidneys raise suspicion of medullary nephrocalcinosis, possibly medullary sponge kidney. . This diagnosis cannot be made on the basis of this noncontrast examination. No obstructing calculus. No renal mass. No hydronephrosis. VASCULATURE: Unremarkable. No aortic aneurysm. BOWEL: Unremarkable. No obstruction. No gross mural thickening. APPENDIX: Unremarkable. Normal appendix. PERITONEUM: Unremarkable. No free fluid. No free air. LYMPH NODES: Unremarkable. No enlarged lymph nodes. BLADDER: Nondistended REPRODUCTIVE: Normal uterus BONES: No acute fracture. OTHER FINDINGS: None. IMPRESSION: Bilateral punctate nonobstructing renal calculi. 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 No additional abnormality.
[2018-03-17 12:46] LABS: BLOOD UREA NITROGEN 9 mg/dl (7-17); GFR NON-AFRICAN AMERICAN > 60
[2018-03-17] MEDS ORDERED: Alum-Mag Hydrox-Simethicone Susp (30 mL) PO PRN (14:53)
[2018-03-17] MEDS: Potassium Ch 20mEq in D5-1/2NS 1,000 ML IV SCH ×2 (15:19→15:35)
[2018-03-17] MEDS: Magnesium Sulfate 1 GM in Dextrose 5% In Water 100 ML IVPB SCH ×2 (15:26→18:17)
[2018-03-17 18:29] LABS: BLOOD UREA NITROGEN 8 mg/dl (7-17); CALCIUM 8.6 mg/dL (8.4-10.2); GFR NON-AFRICAN AMERICAN > 60
--- NOTE | 2018-03-17 19:33 | HP ---
Copied To: Juwan Small MD Attending MD: Juwan Small MD HISTORY OF PRESENT ILLNESS: Ms. Zuniga is a 27-year-old female who was admitted via the emergency room with diabetic ketoacidosis. She indicates that she had been to the emergency room a few times because of abdominal pain and vaginal bleeding. She had been seen by her felter tennis balls and had been placed on Depo shots and control pills, but vaginal bleeding continued. She was in the emergency room treated, but signed of against medical advice because she was not happy with the treatment. She; however, returned and was found to be in DKA. Several hours later, she had vomited at home and has a past medical history of diabetes mellitus type 1 and has been admitted previous times for DKA. FAMILY HISTORY: Noncontributory. SOCIAL HISTORY: She smokes occasionally. Does not drink alcohol. 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 REVIEW OF SYSTEM: Essentially unremarkable. PHYSICAL EXAMINATION: GENERAL: The patient is alert and oriented, still in pain multiple joints in abdomen. VITAL SIGNS: Remarkable for blood pressure of 108/57 with a pulse of 127, respiratory rate 20 per minute. She is afebrile to low grade temperature and then maximum temp has been 102.8 degrees Fahrenheit. O2 sat 100% on room air. SKIN: Shows fair turgor. Mouth dry. LUNGS: Clear. HEART: Regular. No murmurs or gallop. ABDOMEN: Soft, but diffuse tenderness appreciated. EXTREMITIES: Show no edema or cyanosis. CENTRAL NERVOUS SYSTEM: Grossly intact. LABORATORY DATA: Remarkable for venous blood gases showed a pH of 7.2, bicarb of 8.8. Sodium 139, potassium 3.5, BUN 12, creatinine 0.8. Serum glucose originally 500, down to 457 on insulin drip. WBC 7.5, hemoglobin 11.1, platelet count 265,000. The rest of the workup is pending. IMPRESSION: Diabetic ketoacidosis, probably exacerbated by the gynecological problems, fever, one has to rule out some source of infection. PLAN: The plan is to continue insulin drip, monitor blood sugar closely. IV hydration. Place the patient in intensive care. Obtain [employer]PERT consult to evaluate for vaginal bleeding and abdominal pain. We will also obtain a CT scan of the abdomen, analgesics will be given for pain and further therapy will depend on findings. Juwan Small MD
[2018-03-17 21:08] LABS: BLOOD UREA NITROGEN 7 mg/dl (7-17); CALCIUM 8.5 mg/dL (8.4-10.2); GFR NON-AFRICAN AMERICAN > 60
--- NOTE | 2018-03-17 21:38 | CP.PCM.CON ---
History of Present Illness - History of Present Illness History of Present Illness: 27-year-old female admitted to ICU for treatment for DKA. Patient reports having a recent history of irregular bleeding over the past 6-8 weeks. Patient reports having dose of Depo-Provera first week in February and has had irregular spotting since then. I discussed with patient, and side effects of Depo- Provera.. I discussed with patient that her blood count is normal. I also discussed with patient that her pelvis on CT was unremarkable and her pelvic ultrasound reported normal anatomy. Discussed with patient information regarding irregular periods and possible causes and possible treatments. I recommended patient to follow up with [facility] as an outpatient to further manage these issues after her current medical issues resolves Past Patient History - Infectious Disease Hx of Infectious Diseases: None - Tetanus Immunizations Tetanus Immunization: Unknown - Past Medical History & Family History Past Medical History?: Yes - Past Social History Smoking Status: Never Smoked - CARDIAC Hx Cardiac Disorders: No - PULMONARY Hx Respiratory Disorders: No Hx Bronchitis: No - NEUROLOGICAL Hx Neurological Disorder: No - HEENT Hx HEENT Problems: No - RENAL Hx Chronic Kidney Disease: No - ENDOCRINE/METABOLIC Hx Endocrine Disorders: Yes (type 1) - HEMATOLOGICAL/ONCOLOGICAL Hx AIDS: No Hx Human Immunodeficiency Virus (HIV): No - INTEGUMENTARY Hx Dermatological Problems: No - MUSCULOSKELETAL/RHEUMATOLOGICAL Hx Musculoskeletal Disorders: No Hx Falls: No - GASTROINTESTINAL Hx Gastrointestinal Disorders: No - GENITOURINARY/GYNECOLOGICAL Hx Genitourinary Disorders: No - PSYCHIATRIC Hx Psychophysiologic Disorder: No Hx Anxiety: No Hx Bipolar Disorder: No Hx Depression: No Hx Paranoia: No Hx Post Traumatic Stress Disorder: No Hx Schizophrenia: No Hx Substance Use: No - SURGICAL HISTORY Hx Surgeries: Yes Hx Section: Yes (x2) Other/Comment: rt thigh abcess I&D (2006) / insulin pump c secetion - ANESTHESIA Hx Anesthesia: Yes Hx Anesthesia Reactions: No Hx Malignant Hyperthermia: No Has any member of the family had a problem w/ anesthesia?: No Meds Allergies/Adverse Reactions: Allergies Allergy/AdvReac Type Severity Reaction Status Date / Time No Known Allergies Allergy Verified 03/17/18 01:30 - Medications Medications: Current Medications Acetaminophen (Tylenol 325mg Tab) 650 mg PO Q4 PRN PRN Reason: Fever >100.4 F Last Admin: 03/17/18 19:36 Dose: 650 mg Al Hydrox/Mg Hydrox/Simethicone (Maalox Plus 30 Ml) 30 ml PO Q4 PRN PRN Reason: Indigestion / Heartburn Dextrose (Dextrose 50% Inj) 0 ml IV STAT PRN; Protocol PRN Reason: Hypoglycemia Protocol Enoxaparin Sodium (Lovenox) 40 mg SC DAILY LANETTE PRN Reason: Protocol Last Admin: 03/17/18 10:07 Dose: Not Given Glucagon (Glucagen Diagnostic Kit) 0 mg IM STAT PRN; Protocol PRN Reason: Hypoglycemia Protocol Hydromorphone HCl (Dilaudid) 1 mg IVP Q4 PRN PRN Reason: Pain, moderate (4-7) Last Admin: 03/17/18 16:30 Dose: 1 mg Potassium Chloride/Dextrose/Sod Cl (Potassium Chl 20 Meq In D5-1/2ns) 1,000 mls @ 200 mls/hr IV .Q5H LANETTE Stop: 03/18/18 09:05 Last Admin: 03/17/18 15:35 Dose: 200 mls/hr Ciprofloxacin (Cipro 400mg/200ml Dsw) 400 mg in 200 mls @ 200 mls/hr IVPB Q12 LANETTE PRN Reason: Protocol Last Admin: 03/17/18 20:18 Dose: 200 mls/hr Doxycycline Hyclate 100 mg/ (Sodium Chloride) 100 mls @ 100 mls/hr IVPB Q12 LANETTE PRN Reason: Protocol Last Admin: 03/17/18 20:19 Dose: 100 mls/hr Insulin Human Regular 100 (units/ Sodium Chloride) 101 mls @ 5.05 mls/hr IV .Q20H LANETTE; 5 UNITS/HR PRN Reason: Protocol Last Titration: 03/17/18 18:16 Dose: 3 units/hr, 3.03 mls/hr Ibuprofen (Motrin Tab) 400 mg PO STAT STA Stop: 03/17/18 21:28 Ketorolac Tromethamine (Toradol) 15 mg IVP Q6 PRN PRN Reason: Pain, moderate (4-7) Ketorolac Tromethamine (Toradol) 30 mg IVP Q6 PRN PRN Reason: Pain, severe (8-10) Last Admin: 03/17/18 04:46 Dose: 30 mg Ondansetron HCl (Zofran Inj) 4 mg IVP Q4 PRN PRN Reason: Nausea/Vomiting Last Admin: 03/17/18 16:40 Dose: 4 mg Pantoprazole Sodium (Protonix Inj) 40 mg IVP Q12 LANETTE Last Admin: 03/17/18 20:19 Dose: 40 mg Physical Exam - GI/Abdominal Exam Additional comments: Soft, nondistended, diffuse tenderness Results - Vital Signs Recent Vital Signs: Last Vital Signs Temp 103 F H 03/17/18 19:36 Pulse 127 H 03/17/18 18:00 Resp 22 03/17/18 18:00 BP 124/78 03/17/18 18:00 Pulse Ox 98 03/17/18 18:00 - Labs Result Diagrams: 03/17/18 02:10 03/17/18 20:18 Labs: Laboratory Results - last 24 hr 03/17/18 03/17/18 03/17/18 01:31 02:02 02:10 WBC 7.5 RBC 4.00 Hgb 11.1 L Hct 34.7 MCV 86.6 D MCH 27.7 MCHC 31.9 L RDW 15.8 H Plt Count 265 MPV 7.2 Neut % (Auto) 78.4 H Lymph % (Auto) 12.7 L Dawes % (Auto) 7.8 Eos % (Auto) 0.5 Baso % (Auto) 0.6 Neut # (Auto) 5.9 Lymph # (Auto) 1.0 Dawes # (Auto) 0.6 Eos # (Auto) 0.0 Baso # (Auto) 0.0 pCO2 12 L* pO2 142 H HCO3 8.8 L* ABG pH 7.20 L ABG Total CO2 5.1 L ABG O2 Saturation 99.6 H ABG Base Excess -20.7 L Rivera Test Yes ABG Potassium 3.1 L A-a O2 Difference -7.0 Sodium 135.0 Chloride 103.0 Glucose 415 H* D Lactate 4.2 H* FiO2 21.0 Crit Value Called To Sharon alba Crit Value Called By Wiley Crit Value Read Back Y Blood Gas Notified Time 217 Potassium Carbon Dioxide Anion Gap BUN Creatinine Est GFR ( Amer) Est GFR (Non-Af Amer) POC Glucose (mg/dL) > 500 H* Random Glucose Calcium Phosphorus Magnesium Total Bilirubin AST ALT Alkaline Phosphatase Total Protein Albumin Globulin Albumin/Globulin Ratio Lipase Arterial Blood Potassium 3.1 L Urine Color Urine Clarity Urine pH Ur Specific [place] Urine Protein Urine Glucose (UA) Urine Ketones Urine Blood Urine Nitrate Urine Bilirubin Urine Urobilinogen Ur Leukocyte Esterase Urine RBC (Auto) Urine Microscopic WBC Ur Squamous Epith Cells Urine Bacteria 03/17/18 03/17/18 03/17/18 02:10 03:17 03:22 WBC RBC Hgb Hct MCV MCH MCHC RDW Plt Count MPV Neut % (Auto) Lymph % (Auto) Dawes % (Auto) Eos % (Auto) Baso % (Auto) Neut # (Auto) Lymph # (Auto) Dawes # (Auto) Eos # (Auto) Baso # (Auto) pCO2 pO2 HCO3 ABG pH ABG Total CO2 ABG O2 Saturation ABG Base Excess Rivera Test ABG Potassium A-a O2 Difference Sodium 139 Chloride 106 Glucose Lactate FiO2 Crit Value Called To Crit Value Called By Crit Value Read Back Blood Gas Notified Time Potassium 3.5 L Carbon Dioxide 7 L* D Anion Gap 30 H BUN 12 Creatinine 0.8 Est GFR ( Amer) > 60 Est GFR (Non-Af Amer) > 60 POC Glucose (mg/dL) 167 H Random Glucose 457 H* D Calcium 8.9 Phosphorus Magnesium Total Bilirubin 0.4 AST 38 H D ALT 26 Alkaline Phosphatase 134 H Total Protein 7.2 Albumin 3.9 Globulin 3.3 Albumin/Globulin Ratio 1.2 Lipase 38 Arterial Blood Potassium Urine Color Straw Urine Clarity Clear Urine pH 6.0 Ur Specific [place] 1.023 Urine Protein 100 Urine Glucose (UA) >=500 Urine Ketones 80 Urine Blood Moderate Urine Nitrate Negative Urine Bilirubin Negative Urine Urobilinogen 0.2-1.0 Ur Leukocyte Esterase Neg Urine RBC (Auto) 2 Urine Microscopic WBC 2 Ur Squamous Epith Cells < 1 Urine Bacteria Rare 03/17/18 03/17/18 03/17/18 04:26 05:28 06:38 WBC RBC Hgb Hct MCV MCH MCHC RDW Plt Count MPV Neut % (Auto) Lymph % (Auto) Dawes % (Auto) Eos % (Auto) Baso % (Auto) Neut # (Auto) Lymph # (Auto) Dawes # (Auto) Eos # (Auto) Baso # (Auto) pCO2 pO2 HCO3 ABG pH ABG Total CO2 ABG O2 Saturation ABG Base Excess Rivera Test ABG Potassium A-a O2 Difference Sodium Chloride Glucose Lactate FiO2 Crit Value Called To Crit Value Called By Crit Value Read Back Blood Gas Notified Time Potassium Carbon Dioxide Anion Gap BUN Creatinine Est GFR ( Amer) Est GFR (Non-Af Amer) POC Glucose (mg/dL) 98 262 H 326 H Random Glucose Calcium Phosphorus Magnesium Total Bilirubin AST ALT Alkaline Phosphatase Total Protein Albumin Globulin Albumin/Globulin Ratio Lipase Arterial Blood Potassium Urine Color Urine Clarity Urine pH Ur Specific [place] Urine Protein Urine Glucose (UA) Urine Ketones Urine Blood Urine Nitrate Urine Bilirubin Urine Urobilinogen Ur Leukocyte Esterase Urine RBC (Auto) Urine Microscopic WBC Ur Squamous Epith Cells Urine Bacteria 03/17/18 03/17/18 03/17/18 07:29 08:41 08:43 WBC RBC Hgb Hct MCV MCH MCHC RDW Plt Count MPV Neut % (Auto) Lymph % (Auto) Dawes % (Auto) Eos % (Auto) Baso % (Auto) Neut # (Auto) Lymph # (Auto) Dawes # (Auto) Eos # (Auto) Baso # (Auto) pCO2 pO2 HCO3 ABG pH ABG Total CO2 ABG O2 Saturation ABG Base Excess Rivera Test ABG Potassium A-a O2 Difference Sodium Chloride Glucose Lactate FiO2 Crit Value Called To Crit Value Called By Crit Value Read Back Blood Gas Notified Time Potassium Carbon Dioxide Anion Gap BUN Creatinine Est GFR ( Amer) Est GFR (Non-Af Amer) POC Glucose (mg/dL) 244 H 134 H Random Glucose Calcium Phosphorus Magnesium Total Bilirubin AST ALT Alkaline Phosphatase Total Protein Albumin Globulin Albumin/Globulin Ratio Lipase Arterial Blood Potassium Urine Color Yellow Urine Clarity Cloudy Urine pH 5.0 Ur Specific [place] 1.025 Urine Protein Negative Urine Glucose (UA) Neg Urine Ketones Negative Urine Blood Small Urine Nitrate Negative Urine Bilirubin Negative Urine Urobilinogen 0.2-1.0 Ur Leukocyte Esterase Neg Urine RBC (Auto) 6 H Urine Microscopic WBC 2 Ur Squamous Epith Cells 6 H Urine Bacteria Rare 03/17/18 03/17/18 03/17/18 10:06 11:37 11:53 WBC RBC Hgb Hct MCV MCH MCHC RDW Plt Count MPV Neut % (Auto) Lymph % (Auto) Dawes % (Auto) Eos % (Auto) Baso % (Auto) Neut # (Auto) Lymph # (Auto) Dawes # (Auto) Eos # (Auto) Baso # (Auto) pCO2 pO2 HCO3 ABG pH ABG Total CO2 ABG O2 Saturation ABG Base Excess Rivera Test ABG Potassium A-a O2 Difference Sodium 134 Chloride 109 H Glucose Lactate FiO2 Crit Value Called To Crit Value Called By Crit Value Read Back Blood Gas Notified Time Potassium 4.2 Carbon Dioxide < 5 L* D Anion Gap 24 H BUN 9 Creatinine 0.8 Est GFR ( Amer) > 60 Est GFR (Non-Af Amer) > 60 POC Glucose (mg/dL) 312 H 385 H Random Glucose 491 H* Calcium 8.0 L Phosphorus 2.4 L Magnesium 1.5 L Total Bilirubin AST ALT Alkaline Phosphatase Total Protein Albumin Globulin Albumin/Globulin Ratio Lipase Arterial Blood Potassium Urine Color Urine Clarity Urine pH Ur Specific [place] Urine Protein Urine Glucose (UA) Urine Ketones Urine Blood Urine Nitrate Urine Bilirubin Urine Urobilinogen Ur Leukocyte Esterase Urine RBC (Auto) Urine Microscopic WBC Ur Squamous Epith Cells Urine Bacteria 03/17/18 03/17/18 03/17/18 14:06 15:07 16:03 WBC RBC Hgb Hct MCV MCH MCHC RDW Plt Count MPV Neut % (Auto) Lymph % (Auto) Dawes % (Auto) Eos % (Auto) Baso % (Auto) Neut # (Auto) Lymph # (Auto) Dawes # (Auto) Eos # (Auto) Baso # (Auto) pCO2 pO2 HCO3 ABG pH ABG Total CO2 ABG O2 Saturation ABG Base Excess Rivera Test ABG Potassium A-a O2 Difference Sodium Chloride Glucose Lactate FiO2 Crit Value Called To Crit Value Called By Crit Value Read Back Blood Gas Notified Time Potassium Carbon Dioxide Anion Gap BUN Creatinine Est GFR ( Amer) Est GFR (Non-Af Amer) POC Glucose (mg/dL) 264 H 155 H 155 H Random Glucose Calcium Phosphorus Magnesium Total Bilirubin AST ALT Alkaline Phosphatase Total Protein Albumin Globulin Albumin/Globulin Ratio Lipase Arterial Blood Potassium Urine Color Urine Clarity Urine pH Ur Specific [place] Urine Protein Urine Glucose (UA) Urine Ketones Urine Blood Urine Nitrate Urine Bilirubin Urine Urobilinogen Ur Leukocyte Esterase Urine RBC (Auto) Urine Microscopic WBC Ur Squamous Epith Cells Urine Bacteria 03/17/18 03/17/18 03/17/18 16:52 17:50 18:00 WBC RBC Hgb Hct MCV MCH MCHC RDW Plt Count MPV Neut % (Auto) Lymph % (Auto) Dawes % (Auto) Eos % (Auto) Baso % (Auto) Neut # (Auto) Lymph # (Auto) Dawes # (Auto) Eos # (Auto) Baso # (Auto) pCO2 pO2 HCO3 ABG pH ABG Total CO2 ABG O2 Saturation ABG Base Excess Rivera Test ABG Potassium A-a O2 Difference Sodium 137 Chloride 111 H Glucose Lactate FiO2 Crit Value Called To Crit Value Called By Crit Value Read Back Blood Gas Notified Time Potassium 5.0 Carbon Dioxide 11 L* D Anion Gap 20 BUN 8 Creatinine 0.7 Est GFR ( Amer) > 60 Est GFR (Non-Af Amer) > 60 POC Glucose (mg/dL) 169 H 211 H Random Glucose 205 H Calcium 8.6 Phosphorus Magnesium Total Bilirubin AST ALT Alkaline Phosphatase Total Protein Albumin Globulin Albumin/Globulin Ratio Lipase Arterial Blood Potassium Urine Color Urine Clarity Urine pH Ur Specific [place] Urine Protein Urine Glucose (UA) Urine Ketones Urine Blood Urine Nitrate Urine Bilirubin Urine Urobilinogen Ur Leukocyte Esterase Urine RBC (Auto) Urine Microscopic WBC Ur Squamous Epith Cells Urine Bacteria 03/17/18 20:18 WBC RBC Hgb Hct MCV MCH MCHC RDW Plt Count MPV Neut % (Auto) Lymph % (Auto) Dawes % (Auto) Eos % (Auto) Baso % (Auto) Neut # (Auto) Lymph # (Auto) Dawes # (Auto) Eos # (Auto) Baso # (Auto) pCO2 pO2 HCO3 ABG pH ABG Total CO2 ABG O2 Saturation ABG Base Excess Rivera Test ABG Potassium A-a O2 Difference Sodium 136 Chloride 110 H Glucose Lactate FiO2 Crit Value Called To Crit Value Called By Crit Value Read Back Blood Gas Notified Time Potassium 4.7 Carbon Dioxide 9 L* Anion Gap 22 H BUN 7 Creatinine 0.7 Est GFR ( Amer) > 60 Est GFR (Non-Af Amer) > 60 POC Glucose (mg/dL) Random Glucose 183 H Calcium 8.5 Phosphorus Magnesium Total Bilirubin AST ALT Alkaline Phosphatase Total Protein Albumin Globulin Albumin/Globulin Ratio Lipase Arterial Blood Potassium Urine Color Urine Clarity Urine pH Ur Specific [place] Urine Protein Urine Glucose (UA) Urine Ketones Urine Blood Urine Nitrate Urine Bilirubin Urine Urobilinogen Ur Leukocyte Esterase Urine RBC (Auto) Urine Microscopic WBC Ur Squamous Epith Cells Urine Bacteria - Imaging and Cardiology Trans Vaginal US Status: Report reviewed by me CT scan - pelvis Status: Report reviewed by me Assessment & Plan - Assessment and Plan (Free Text) Assessment: 27-year-old female in DKA undergoing treatment NICU, history of irregular vaginal bleeding with current spotting likely due to withdrawal bleeding from the Depo-Provera. Normal pelvic anatomy and normal CBC. Plan: Patient to follow up with [facility] after discharge as discussed with patient. No indication for any intervention at this time. - Date & Time Date: 03/17/18 Time: 21:41
--- NOTE | 2018-03-18 04:32 | CON ---
Copied To: Monet Gallego MD Attending MD: Monet Gallego MD DATE: 03/17/2018 ENDOCRINOLOGY CONSULT LOCATION: Room 425. HISTORY OF PRESENT ILLNESS: This is a 27-year-old female with known history of type 1 insulin-dependent diabetes, presenting here with intractable vomiting and upper abdominal pain and evaluated to be in diabetic ketoacidosis and dehydration and is now being referred for diabetic evaluation and management. She was actually seen initially in the emergency room and given IV hydration because of DKA, but the patient had to go home because of concerns with her young children having no baby-sitter, so she signed out against medical advice as noted. However upon reaching home, she once again developed nausea, dyspepsia and upper abdominal pain with supervening intractable vomiting prompting re-consult and subsequent admission here. PAST MEDICAL HISTORY: As mentioned above, history of type 1 insulin-dependent diabetes, previously on a [employer] insulin pump, which she apparently could not manage and discontinued thereof. She has had multiple hospital re-admissions for diabetic ketoacidosis and dehydration over the past few years till the present time. SOCIAL HISTORY: The patient has supportive family. Denies any substance use. REVIEW OF SYSTEMS: Admits to generalized body weakness with progressive bouts of dizziness and lightheadedness, worse on the day of admission. No chest pains, palpitations, or PNDs. Her oral intake has been variable with nausea, dyspepsia and supervening upper abdominal pain with intractable vomiting episodes as noted. Also admits to marked polyuria, nocturia, and polydipsia. PHYSICAL EXAMINATION: GENERAL: This is an average-built female, in no apparent distress. VITAL SIGNS: With a blood pressure of 140/80, pulse of 70 beats per minute and regular, temperature 98, respirations 20. Height is 5 feet 3 inches. Weight is 140 pounds. HEENT: Head is normocephalic. Eyes anicteric with pink conjunctivae. Funduscopy not possible at this time. Ears, nose, and throat otherwise normal. NECK: Supple. Thyroid gland is normal in size. No carotid bruits or cervical adenopathy. CARDIOPULMONARY: Some adynamic precordium. S1, S2 are rapid and regular. LUNGS: Clear to auscultation. ABDOMEN: Flat, soft with positive bowel sounds. EXTREMITIES: No peripheral edema. Pulses are +2 bilaterally. LABORATORY DATA: Chemistries: BUN of 9, sodium 134, potassium 4.2, chloride 109, CO2 is less than 5, glucose is 491, and creatinine is 0.8. ASSESSMENT: This is a 27-year-old female with uncontrolled and decompensated type 1 insulin-dependent diabetes, presenting here with diabetic ketoacidosis and dehydration and is now being referred for diabetic evaluation and management. PLAN OF MANAGEMENT: We will concur with the vigorous IV hydration as initiated and also with intensive insulin therapy as given, currently on an insulin drip infusion as ordered. We will observe her glycemic fluctuations and also her response metabolically thereof and once the CO2 is at least above 20, then we can safely switch her over to a more physiologic basal and bolus insulin drug regimen as indicated. We will obtain serial chemistries and supplement accordingly as needed. We will obtain also baseline hemoglobin A1c with a lipid panel and TSH values as ordered. We will follow. Monet Gallego MD
[2018-03-18 05:46] LABS: BASO % 0.2 % (0.0-2.0); EOS % 0.1 % (0.0-4.0); LYMPH # 0.3 K/uL (1.0-4.3); LYMPH % 4.8 % (20.0-40.0); MEAN CELL VOLUME 83.8 fl (81.0-99.0); MEAN CORPUSCULAR HEMOGLOBIN 28.5 pg (27.0-31.0); MEAN PLATELET VOLUME 7.4 fl (7.2-11.7); MONO # 0.1 K/uL (0.0-0.8); MONO % 2.3 % (0.0-10.0); NEUT # 4.8 K/uL (1.8-7.0); NEUT % 92.6 % (50.0-75.0); PLATELET COUNT 184 K/uL (130-400); RED CELL DISTRIBUTION WIDTH 15.2 % (11.5-14.5); WHITE BLOOD COUNT 5.2 K/uL (4.8-10.8)
[2018-03-18 06:03] LABS: LDL CHOLESTEROL 54 mg/dL (0-129)
[2018-03-18 06:15] LABS: ALBUMIN 2.8 g/dL (3.5-5.0); ALT/SGPT 101 U/L (9-52); AST/SGOT 196 U/L (14-36); BLOOD UREA NITROGEN 6 mg/dl (7-17); CALCIUM 8.2 mg/dL (8.4-10.2); GFR NON-AFRICAN AMERICAN > 60; HDL CHOLESTEROL 26 MG/DL (30-70)
--- NOTE | 2018-03-18 07:49 | CP.CCUPN ---
Addendum entered and electronically signed by Carlitos Galvez MD 03/18/18 12: 02: Patient seen and evaluated by HEADER MACHINE OPERATOR yesterday due to irregular periods and lower abd pain at presentation. She started Depo Provera at beginning of the month. Abdominal CT wnl Adviced regarding multiple causes of irregular bleeding. Recomds f/u with primary HEADER MACHINE OPERATOR as outpatient. Original Note: <Carlitos Galvez - Last Filed: 03/18/18 11:58> CCU Subjective - Physician Review Subjective (Free Text): Patient seen and examined today during morning rounds. Patient still c/o some nausea, but denies vomiting, chest or abdominal pain. Afebrile now but reports fever last night requiring Ibuprofen. Continue on insulin drip. VSS though tachy with HR 100-110s I/O: 496/200 CCU Objective - Vital Signs / Intake & Output Vital Signs (Last 4 hours): Vital Signs Temp Pulse Resp BP Pulse Ox 03/18/18 06:00 105 H 15 107/63 99 03/18/18 04:00 98.5 F 103 H 13 122/69 99 Intake and Output (Last 8hrs): Intake & Output 03/17/18 03/18/18 03/18/18 22:59 06:59 14:59 Intake Total 15 Balance 15 Intake: IV 15 - Physical Exam Head: Positive for: Normocephalic Pupils: Positive for: PERRL Extroacular Muscles: Positive for: EOMI Mouth: Positive for: Moist Mucous Membranes Respiratory/Chest: Positive for: Clear to Auscultation. Negative for: Wheezes, Rhonchi Cardiovascular: Positive for: Regular Rate and Rhythm, Tachycardic. Negative for: Murmurs Abdomen: Positive for: Other (soft). Negative for: Tenderness, Distention Lower Extremity: Positive for: Normal Inspection. Negative for: Edema, CALF TENDERNESS Skin: Positive for: Warm, Dry Psychiatric: Positive for: Alert, Oriented x 3 - Medications Active Medications: Active Medications Generic Name Dose Route Start Last Admin Trade Name Freq PRN Reason Stop Dose Admin Acetaminophen 650 mg 03/17/18 05:41 03/17/18 19:36 Tylenol 325mg Tab PO 650 mg Q4 PRN Administration Fever >100.4 F Al Hydrox/Mg Hydrox/Simethicone 30 ml 03/17/18 14:53 Maalox Plus 30 Ml PO Q4 PRN Indigestion / Heartburn Dextrose 0 ml 03/17/18 11:58 Dextrose 50% Inj IV STAT PRN Hypoglycemia Protocol Protocol Enoxaparin Sodium 40 mg 03/17/18 09:00 03/17/18 10:07 Lovenox SC Not Given DAILY [facility] Protocol Glucagon 0 mg 03/17/18 11:58 Glucagen Diagnostic Kit IM STAT PRN Hypoglycemia Protocol Protocol Hydromorphone HCl 1 mg 03/17/18 09:15 03/18/18 05:00 Dilaudid IVP 1 mg Q4 PRN Administration Pain, moderate (4-7) Potassium Chloride/Dextrose/Sod Cl 1,000 mls @ 200 mls/hr 03/17/18 09:15 15:35 Potassium Chl 20 Meq In D5-1/2ns IV 03/18/18 09:05 200 mls/hr .Q5H [facility] Administration Ciprofloxacin 400 mg in 200 mls @ 200 mls/hr 03/17/18 09:15 03/17/18 20:18 Cipro 400mg/200ml Dsw IVPB 200 mls/hr Q12 [facility] Administration Protocol Doxycycline Hyclate 100 mg/ 100 mls @ 100 mls/hr 03/17/18 09:15 03/17/18 20: 19 Sodium Chloride IVPB 100 mls/hr Q12 [facility] Administration Protocol Insulin Human Regular 100 101 mls @ 5.05 mls/hr 03/17/18 12:00 03/17/18 18:16 units/ Sodium Chloride IV 3 units/hr .Q20H [facility] 3.03 mls/hr Protocol Titration 5 UNITS/HR Ketorolac Tromethamine 15 mg 03/17/18 03:58 Toradol IVP Q6 PRN Pain, moderate (4-7) Ketorolac Tromethamine 30 mg 03/17/18 03:59 03/17/18 04:46 Toradol IVP 30 mg Q6 PRN Administration Pain, severe (8-10) Ondansetron HCl 4 mg 03/17/18 03:54 03/17/18 16:40 Zofran Inj IVP 4 mg Q4 PRN Administration Nausea/Vomiting Pantoprazole Sodium 40 mg 03/17/18 15:00 03/17/18 20:19 Protonix Inj IVP 40 mg Q12 [facility] Administration - Patient Studies Lab Studies: Microbiology Studies 03/17/18 02:55 Blood Culture - Preliminary Blood-Venous Gram Negative Dk Gram Stain - Final 03/17/18 02:40 Blood Culture - Preliminary Blood-Venous Gram Negative Dk Gram Stain - Final Lab Studies 03/18/18 03/18/18 03/17/18 Range/Units 04:45 04:45 20:18 WBC 5.2 (4.8-10.8) K/uL RBC 3.50 L (3.80-5.20) Mil/uL Hgb 10.0 L (12.0-16.0) g/dL Hct 29.3 L (34.0-47.0) % MCV 83.8 D (81.0-99.0) fl MCH 28.5 (27.0-31.0) pg MCHC 34.0 (33.0-37.0) g/dL RDW 15.2 H (11.5-14.5) % Plt Count 184 (130-400) K/uL MPV 7.4 (7.2-11.7) fl Neut % (Auto) 92.6 H (50.0-75.0) % Lymph % (Auto) 4.8 L (20.0-40.0) % [place] % (Auto) 2.3 (0.0-10.0) % Eos % (Auto) 0.1 (0.0-4.0) % Baso % (Auto) 0.2 (0.0-2.0) % Neut # (Auto) 4.8 (1.8-7.0) K/uL Lymph # (Auto) 0.3 L (1.0-4.3) K/uL [place] # (Auto) 0.1 (0.0-0.8) K/uL Eos # (Auto) 0.0 (0.0-0.7) K/uL Baso # (Auto) 0.0 (0.0-0.2) K/uL Sodium 137 136 (132-148) mmol/l Potassium 4.0 4.7 (3.6-5.0) MMOL/L Chloride 112 H 110 H (98-107) mmol/L Carbon Dioxide 16 L 9 L* (22-30) mmol/L Anion Gap 13 22 H (10-20) BUN 6 L 7 (7-17) mg/dl Creatinine 0.6 L 0.7 (0.7-1.2) mg/dl Est GFR ( Amer) > 60 > 60 Est GFR (Non-Af Amer) > 60 > 60 POC Glucose (mg/dL) (65-110) mg/dL Random Glucose 158 H 183 H (65-105) mg/dL Calcium 8.2 L 8.5 (8.4-10.2) mg/dL Phosphorus 2.0 L (2.5-4.5) mg/dl Magnesium 2.0 (1.6-2.3) MG/DL Total Bilirubin 0.7 (0.2-1.3) mg/dl AST 196 H D (14-36) U/L ALT 101 H D (9-52) U/L Alkaline Phosphatase 172 H D (38-126) U/L Total Protein 5.7 L (6.3-8.2) G/DL Albumin 2.8 L D (3.5-5.0) g/dL Globulin 2.9 (2.2-3.9) gm/dL Albumin/Globulin Ratio 1.0 (1.0-2.1) Triglycerides 166 H (0-149) mg/DL Cholesterol 119 (0-199) mg/dL LDL Cholesterol Direct 54 (0-129) mg/dL HDL Cholesterol 26 L (30-70) MG/DL TSH 3rd Generation 3.62 (0.46-4.68) mIU/ML Urine Color (YELLOW) Urine Clarity (Clear) Urine pH (5.0-8.0) Ur Specific [place] (1.003-1.030) Urine Protein (NEGATIVE) mg/dL Urine Glucose (UA) (Normal) mg/dL Urine Ketones (NEGATIVE) mg/dL Urine Blood (NEGATIVE) Urine Nitrate (NEGATIVE) Urine Bilirubin (NEGATIVE) Urine Urobilinogen (0.2-1.0) mg/dL Ur Leukocyte Esterase (Negative) Dian/uL Urine RBC (Auto) (0-3) /hpf Urine Microscopic WBC (0-5) /hpf Ur Squamous Epith Cells (0-5) /hpf Urine Bacteria (<OCC) 03/17/18 03/17/18 03/17/18 Range/Units 18:00 17:50 16:52 WBC (4.8-10.8) K/uL RBC (3.80-5.20) Mil/uL Hgb (12.0-16.0) g/dL Hct (34.0-47.0) % MCV (81.0-99.0) fl MCH (27.0-31.0) pg MCHC (33.0-37.0) g/dL RDW (11.5-14.5) % Plt Count (130-400) K/uL MPV (7.2-11.7) fl Neut % (Auto) (50.0-75.0) % Lymph % (Auto) (20.0-40.0) % [place] % (Auto) (0.0-10.0) % Eos % (Auto) (0.0-4.0) % Baso % (Auto) (0.0-2.0) % Neut # (Auto) (1.8-7.0) K/uL Lymph # (Auto) (1.0-4.3) K/uL [place] # (Auto) (0.0-0.8) K/uL Eos # (Auto) (0.0-0.7) K/uL Baso # (Auto) (0.0-0.2) K/uL Sodium 137 (132-148) mmol/l Potassium 5.0 (3.6-5.0) MMOL/L Chloride 111 H (98-107) mmol/L Carbon Dioxide 11 L* D (22-30) mmol/L Anion Gap 20 (10-20) BUN 8 (7-17) mg/dl Creatinine 0.7 (0.7-1.2) mg/dl Est GFR ( Amer) > 60 Est GFR (Non-Af Amer) > 60 POC Glucose (mg/dL) 211 H 169 H (65-110) mg/dL Random Glucose 205 H (65-105) mg/dL Calcium 8.6 (8.4-10.2) mg/dL Phosphorus (2.5-4.5) mg/dl Magnesium (1.6-2.3) MG/DL Total Bilirubin (0.2-1.3) mg/dl AST (14-36) U/L ALT (9-52) U/L Alkaline Phosphatase (38-126) U/L Total Protein (6.3-8.2) G/DL Albumin (3.5-5.0) g/dL Globulin (2.2-3.9) gm/dL Albumin/Globulin Ratio (1.0-2.1) Triglycerides (0-149) mg/DL Cholesterol (0-199) mg/dL LDL Cholesterol Direct (0-129) mg/dL HDL Cholesterol (30-70) MG/DL TSH 3rd Generation (0.46-4.68) mIU/ML Urine Color (YELLOW) Urine Clarity (Clear) Urine pH (5.0-8.0) Ur Specific [place] (1.003-1.030) Urine Protein (NEGATIVE) mg/dL Urine Glucose (UA) (Normal) mg/dL Urine Ketones (NEGATIVE) mg/dL Urine Blood (NEGATIVE) Urine Nitrate (NEGATIVE) Urine Bilirubin (NEGATIVE) Urine Urobilinogen (0.2-1.0) mg/dL Ur Leukocyte Esterase (Negative) Dian/uL Urine RBC (Auto) (0-3) /hpf Urine Microscopic WBC (0-5) /hpf Ur Squamous Epith Cells (0-5) /hpf Urine Bacteria (<OCC) 03/17/18 03/17/18 03/17/18 Range/Units 16:03 15:07 14:06 WBC (4.8-10.8) K/uL RBC (3.80-5.20) Mil/uL Hgb (12.0-16.0) g/dL Hct (34.0-47.0) % MCV (81.0-99.0) fl MCH (27.0-31.0) pg MCHC (33.0-37.0) g/dL RDW (11.5-14.5) % Plt Count (130-400) K/uL MPV (7.2-11.7) fl Neut % (Auto) (50.0-75.0) % Lymph % (Auto) (20.0-40.0) % [place] % (Auto) (0.0-10.0) % Eos % (Auto) (0.0-4.0) % Baso % (Auto) (0.0-2.0) % Neut # (Auto) (1.8-7.0) K/uL Lymph # (Auto) (1.0-4.3) K/uL [place] # (Auto) (0.0-0.8) K/uL Eos # (Auto) (0.0-0.7) K/uL Baso # (Auto) (0.0-0.2) K/uL Sodium (132-148) mmol/l Potassium (3.6-5.0) MMOL/L Chloride (98-107) mmol/L Carbon Dioxide (22-30) mmol/L Anion Gap (10-20) BUN (7-17) mg/dl Creatinine (0.7-1.2) mg/dl Est GFR ( Amer) Est GFR (Non-Af Amer) POC Glucose (mg/dL) 155 H 155 H 264 H (65-110) mg/dL Random Glucose (65-105) mg/dL Calcium (8.4-10.2) mg/dL Phosphorus (2.5-4.5) mg/dl Magnesium (1.6-2.3) MG/DL Total Bilirubin (0.2-1.3) mg/dl AST (14-36) U/L ALT (9-52) U/L Alkaline Phosphatase (38-126) U/L Total Protein (6.3-8.2) G/DL Albumin (3.5-5.0) g/dL Globulin (2.2-3.9) gm/dL Albumin/Globulin Ratio (1.0-2.1) Triglycerides (0-149) mg/DL Cholesterol (0-199) mg/dL LDL Cholesterol Direct (0-129) mg/dL HDL Cholesterol (30-70) MG/DL TSH 3rd Generation (0.46-4.68) mIU/ML Urine Color (YELLOW) Urine Clarity (Clear) Urine pH (5.0-8.0) Ur Specific [place] (1.003-1.030) Urine Protein (NEGATIVE) mg/dL Urine Glucose (UA) (Normal) mg/dL Urine Ketones (NEGATIVE) mg/dL Urine Blood (NEGATIVE) Urine Nitrate (NEGATIVE) Urine Bilirubin (NEGATIVE) Urine Urobilinogen (0.2-1.0) mg/dL Ur Leukocyte Esterase (Negative) Dian/uL Urine RBC (Auto) (0-3) /hpf Urine Microscopic WBC (0-5) /hpf Ur Squamous Epith Cells (0-5) /hpf Urine Bacteria (<OCC) 08/30/18 08/30/18 08/30/18 Range/Units 11:53 11:37 10:06 WBC (4.8-10.8) K/uL RBC (3.80-5.20) Mil/uL Hgb (12.0-16.0) g/dL Hct (34.0-47.0) % MCV (81.0-99.0) fl MCH (27.0-31.0) pg MCHC (33.0-37.0) g/dL RDW (11.5-14.5) % Plt Count (130-400) K/uL MPV (7.2-11.7) fl Neut % (Auto) (50.0-75.0) % Lymph % (Auto) (20.0-40.0) % [place] % (Auto) (0.0-10.0) % Eos % (Auto) (0.0-4.0) % Baso % (Auto) (0.0-2.0) % Neut # (Auto) (1.8-7.0) K/uL Lymph # (Auto) (1.0-4.3) K/uL [place] # (Auto) (0.0-0.8) K/uL Eos # (Auto) (0.0-0.7) K/uL Baso # (Auto) (0.0-0.2) K/uL Sodium 134 (132-148) mmol/l Potassium 4.2 (3.6-5.0) MMOL/L Chloride 109 H (98-107) mmol/L Carbon Dioxide < 5 L* D (22-30) mmol/L Anion Gap 24 H (10-20) BUN 9 (7-17) mg/dl Creatinine 0.8 (0.7-1.2) mg/dl Est GFR ( Amer) > 60 Est GFR (Non-Af Amer) > 60 POC Glucose (mg/dL) 385 H 312 H (65-110) mg/dL Random Glucose 491 H* (65-105) mg/dL Calcium 8.0 L (8.4-10.2) mg/dL Phosphorus 2.4 L (2.5-4.5) mg/dl Magnesium 1.5 L (1.6-2.3) MG/DL Total Bilirubin (0.2-1.3) mg/dl AST (14-36) U/L ALT (9-52) U/L Alkaline Phosphatase (38-126) U/L Total Protein (6.3-8.2) G/DL Albumin (3.5-5.0) g/dL Globulin (2.2-3.9) gm/dL Albumin/Globulin Ratio (1.0-2.1) Triglycerides (0-149) mg/DL Cholesterol (0-199) mg/dL LDL Cholesterol Direct (0-129) mg/dL HDL Cholesterol (30-70) MG/DL TSH 3rd Generation (0.46-4.68) mIU/ML Urine Color (YELLOW) Urine Clarity (Clear) Urine pH (5.0-8.0) Ur Specific [place] (1.003-1.030) Urine Protein (NEGATIVE) mg/dL Urine Glucose (UA) (Normal) mg/dL Urine Ketones (NEGATIVE) mg/dL Urine Blood (NEGATIVE) Urine Nitrate (NEGATIVE) Urine Bilirubin (NEGATIVE) Urine Urobilinogen (0.2-1.0) mg/dL Ur Leukocyte Esterase (Negative) Dian/uL Urine RBC (Auto) (0-3) /hpf Urine Microscopic WBC (0-5) /hpf Ur Squamous Epith Cells (0-5) /hpf Urine Bacteria (<OCC) 03/17/18 03/17/18 03/17/18 Range/Units 08:43 08:41 07:29 WBC (4.8-10.8) K/uL RBC (3.80-5.20) Mil/uL Hgb (12.0-16.0) g/dL Hct (34.0-47.0) % MCV (81.0-99.0) fl MCH (27.0-31.0) pg MCHC (33.0-37.0) g/dL RDW (11.5-14.5) % Plt Count (130-400) K/uL MPV (7.2-11.7) fl Neut % (Auto) (50.0-75.0) % Lymph % (Auto) (20.0-40.0) % [place] % (Auto) (0.0-10.0) % Eos % (Auto) (0.0-4.0) % Baso % (Auto) (0.0-2.0) % Neut # (Auto) (1.8-7.0) K/uL Lymph # (Auto) (1.0-4.3) K/uL [place] # (Auto) (0.0-0.8) K/uL Eos # (Auto) (0.0-0.7) K/uL Baso # (Auto) (0.0-0.2) K/uL Sodium (132-148) mmol/l Potassium (3.6-5.0) MMOL/L Chloride (98-107) mmol/L Carbon Dioxide (22-30) mmol/L Anion Gap (10-20) BUN (7-17) mg/dl Creatinine (0.7-1.2) mg/dl Est GFR ( Amer) Est GFR (Non-Af Amer) POC Glucose (mg/dL) 134 H 244 H (65-110) mg/dL Random Glucose (65-105) mg/dL Calcium (8.4-10.2) mg/dL Phosphorus (2.5-4.5) mg/dl Magnesium (1.6-2.3) MG/DL Total Bilirubin (0.2-1.3) mg/dl AST (14-36) U/L ALT (9-52) U/L Alkaline Phosphatase (38-126) U/L Total Protein (6.3-8.2) G/DL Albumin (3.5-5.0) g/dL Globulin (2.2-3.9) gm/dL Albumin/Globulin Ratio (1.0-2.1) Triglycerides (0-149) mg/DL Cholesterol (0-199) mg/dL LDL Cholesterol Direct (0-129) mg/dL HDL Cholesterol (30-70) MG/DL TSH 3rd Generation (0.46-4.68) mIU/ML Urine Color Yellow (YELLOW) Urine Clarity Cloudy (Clear) Urine pH 5.0 (5.0-8.0) Ur Specific [place] 1.025 (1.003-1.030) Urine Protein Negative (NEGATIVE) mg/dL Urine Glucose (UA) Neg (Normal) mg/dL Urine Ketones Negative (NEGATIVE) mg/dL Urine Blood Small (NEGATIVE) Urine Nitrate Negative (NEGATIVE) Urine Bilirubin Negative (NEGATIVE) Urine Urobilinogen 0.2-1.0 (0.2-1.0) mg/dL Ur Leukocyte Esterase Neg (Negative) Dian/uL Urine RBC (Auto) 6 H (0-3) /hpf Urine Microscopic WBC 2 (0-5) /hpf Ur Squamous Epith Cells 6 H (0-5) /hpf Urine Bacteria Rare (<OCC) 03/17/18 03/17/18 03/17/18 Range/Units 06:38 05:28 04:26 WBC (4.8-10.8) K/uL RBC (3.80-5.20) Mil/uL Hgb (12.0-16.0) g/dL Hct (34.0-47.0) % MCV (81.0-99.0) fl MCH (27.0-31.0) pg MCHC (33.0-37.0) g/dL RDW (11.5-14.5) % Plt Count (130-400) K/uL MPV (7.2-11.7) fl Neut % (Auto) (50.0-75.0) % Lymph % (Auto) (20.0-40.0) % [place] % (Auto) (0.0-10.0) % Eos % (Auto) (0.0-4.0) % Baso % (Auto) (0.0-2.0) % Neut # (Auto) (1.8-7.0) K/uL Lymph # (Auto) (1.0-4.3) K/uL [place] # (Auto) (0.0-0.8) K/uL Eos # (Auto) (0.0-0.7) K/uL Baso # (Auto) (0.0-0.2) K/uL Sodium (132-148) mmol/l Potassium (3.6-5.0) MMOL/L Chloride (98-107) mmol/L Carbon Dioxide (22-30) mmol/L Anion Gap (10-20) BUN (7-17) mg/dl Creatinine (0.7-1.2) mg/dl Est GFR ( Amer) Est GFR (Non-Af Amer) POC Glucose (mg/dL) 326 H 262 H 98 (65-110) mg/dL Random Glucose (65-105) mg/dL Calcium (8.4-10.2) mg/dL Phosphorus (2.5-4.5) mg/dl Magnesium (1.6-2.3) MG/DL Total Bilirubin (0.2-1.3) mg/dl AST (14-36) U/L ALT (9-52) U/L Alkaline Phosphatase (38-126) U/L Total Protein (6.3-8.2) G/DL Albumin (3.5-5.0) g/dL Globulin (2.2-3.9) gm/dL Albumin/Globulin Ratio (1.0-2.1) Triglycerides (0-149) mg/DL Cholesterol (0-199) mg/dL LDL Cholesterol Direct (0-129) mg/dL HDL Cholesterol (30-70) MG/DL TSH 3rd Generation (0.46-4.68) mIU/ML Urine Color (YELLOW) Urine Clarity (Clear) Urine pH (5.0-8.0) Ur Specific [place] (1.003-1.030) Urine Protein (NEGATIVE) mg/dL Urine Glucose (UA) (Normal) mg/dL Urine Ketones (NEGATIVE) mg/dL Urine Blood (NEGATIVE) Urine Nitrate (NEGATIVE) Urine Bilirubin (NEGATIVE) Urine Urobilinogen (0.2-1.0) mg/dL Ur Leukocyte Esterase (Negative) Dian/uL Urine RBC (Auto) (0-3) /hpf Urine Microscopic WBC (0-5) /hpf Ur Squamous Epith Cells (0-5) /hpf Urine Bacteria (<OCC) 03/17/18 Range/Units 03:17 WBC (4.8-10.8) K/uL RBC (3.80-5.20) Mil/uL Hgb (12.0-16.0) g/dL Hct (34.0-47.0) % MCV (81.0-99.0) fl MCH (27.0-31.0) pg MCHC (33.0-37.0) g/dL RDW (11.5-14.5) % Plt Count (130-400) K/uL MPV (7.2-11.7) fl Neut % (Auto) (50.0-75.0) % Lymph % (Auto) (20.0-40.0) % [place] % (Auto) (0.0-10.0) % Eos % (Auto) (0.0-4.0) % Baso % (Auto) (0.0-2.0) % Neut # (Auto) (1.8-7.0) K/uL Lymph # (Auto) (1.0-4.3) K/uL [place] # (Auto) (0.0-0.8) K/uL Eos # (Auto) (0.0-0.7) K/uL Baso # (Auto) (0.0-0.2) K/uL Sodium (132-148) mmol/l Potassium (3.6-5.0) MMOL/L Chloride (98-107) mmol/L Carbon Dioxide (22-30) mmol/L Anion Gap (10-20) BUN (7-17) mg/dl Creatinine (0.7-1.2) mg/dl Est GFR ( Amer) Est GFR (Non-Af Amer) POC Glucose (mg/dL) 167 H (65-110) mg/dL Random Glucose (65-105) mg/dL Calcium (8.4-10.2) mg/dL Phosphorus (2.5-4.5) mg/dl Magnesium (1.6-2.3) MG/DL Total Bilirubin (0.2-1.3) mg/dl AST (14-36) U/L ALT (9-52) U/L Alkaline Phosphatase (38-126) U/L Total Protein (6.3-8.2) G/DL Albumin (3.5-5.0) g/dL Globulin (2.2-3.9) gm/dL Albumin/Globulin Ratio (1.0-2.1) Triglycerides (0-149) mg/DL Cholesterol (0-199) mg/dL LDL Cholesterol Direct (0-129) mg/dL HDL Cholesterol (30-70) MG/DL TSH 3rd Generation (0.46-4.68) mIU/ML Urine Color (YELLOW) Urine Clarity (Clear) Urine pH (5.0-8.0) Ur Specific [place] (1.003-1.030) Urine Protein (NEGATIVE) mg/dL Urine Glucose (UA) (Normal) mg/dL Urine Ketones (NEGATIVE) mg/dL Urine Blood (NEGATIVE) Urine Nitrate (NEGATIVE) Urine Bilirubin (NEGATIVE) Urine Urobilinogen (0.2-1.0) mg/dL Ur Leukocyte Esterase (Negative) Dian/uL Urine RBC (Auto) (0-3) /hpf Urine Microscopic WBC (0-5) /hpf Ur Squamous Epith Cells (0-5) /hpf Urine Bacteria (<OCC) Laboratory Results - last 24 hr 03/17/18 03/17/18 03/17/18 03:17 04:26 05:28 WBC RBC Hgb Hct MCV MCH MCHC RDW Plt Count MPV Neut % (Auto) Lymph % (Auto) [place] % (Auto) Eos % (Auto) Baso % (Auto) Neut # (Auto) Lymph # (Auto) [place] # (Auto) Eos # (Auto) Baso # (Auto) Sodium Potassium Chloride Carbon Dioxide Anion Gap BUN Creatinine Est GFR ( Amer) Est GFR (Non-Af Amer) POC Glucose (mg/dL) 167 H 98 262 H Random Glucose Calcium Phosphorus Magnesium Total Bilirubin AST ALT Alkaline Phosphatase Total Protein Albumin Globulin Albumin/Globulin Ratio Triglycerides Cholesterol LDL Cholesterol Direct HDL Cholesterol TSH 3rd Generation Urine Color Urine Clarity Urine pH Ur Specific [place] Urine Protein Urine Glucose (UA) Urine Ketones Urine Blood Urine Nitrate Urine Bilirubin Urine Urobilinogen Ur Leukocyte Esterase Urine RBC (Auto) Urine Microscopic WBC Ur Squamous Epith Cells Urine Bacteria 03/17/18 03/17/18 03/17/18 06:38 07:29 08:41 WBC RBC Hgb Hct MCV MCH MCHC RDW Plt Count MPV Neut % (Auto) Lymph % (Auto) [place] % (Auto) Eos % (Auto) Baso % (Auto) Neut # (Auto) Lymph # (Auto) [place] # (Auto) Eos # (Auto) Baso # (Auto) Sodium Potassium Chloride Carbon Dioxide Anion Gap BUN Creatinine Est GFR ( Amer) Est GFR (Non-Af Amer) POC Glucose (mg/dL) 326 H 244 H Random Glucose Calcium Phosphorus Magnesium Total Bilirubin AST ALT Alkaline Phosphatase Total Protein Albumin Globulin Albumin/Globulin Ratio Triglycerides Cholesterol LDL Cholesterol Direct HDL Cholesterol TSH 3rd Generation Urine Color Yellow Urine Clarity Cloudy Urine pH 5.0 Ur Specific [place] 1.025 Urine Protein Negative Urine Glucose (UA) Neg Urine Ketones Negative Urine Blood Small Urine Nitrate Negative Urine Bilirubin Negative Urine Urobilinogen 0.2-1.0 Ur Leukocyte Esterase Neg Urine RBC (Auto) 6 H Urine Microscopic WBC 2 Ur Squamous Epith Cells 6 H Urine Bacteria Rare 03/17/18 03/17/18 03/17/18 08:43 10:06 11:37 WBC RBC Hgb Hct MCV MCH MCHC RDW Plt Count MPV Neut % (Auto) Lymph % (Auto) [place] % (Auto) Eos % (Auto) Baso % (Auto) Neut # (Auto) Lymph # (Auto) [place] # (Auto) Eos # (Auto) Baso # (Auto) Sodium Potassium Chloride Carbon Dioxide Anion Gap BUN Creatinine Est GFR ( Amer) Est GFR (Non-Af Amer) POC Glucose (mg/dL) 134 H 312 H 385 H Random Glucose Calcium Phosphorus Magnesium Total Bilirubin AST ALT Alkaline Phosphatase Total Protein Albumin Globulin Albumin/Globulin Ratio Triglycerides Cholesterol LDL Cholesterol Direct HDL Cholesterol TSH 3rd Generation Urine Color Urine Clarity Urine pH Ur Specific [place] Urine Protein Urine Glucose (UA) Urine Ketones Urine Blood Urine Nitrate Urine Bilirubin Urine Urobilinogen Ur Leukocyte Esterase Urine RBC (Auto) Urine Microscopic WBC Ur Squamous Epith Cells Urine Bacteria 03/17/18 03/17/18 03/17/18 11:53 14:06 15:07 WBC RBC Hgb Hct MCV MCH MCHC RDW Plt Count MPV Neut % (Auto) Lymph % (Auto) [place] % (Auto) Eos % (Auto) Baso % (Auto) Neut # (Auto) Lymph # (Auto) [place] # (Auto) Eos # (Auto) Baso # (Auto) Sodium 134 Potassium 4.2 Chloride 109 H Carbon Dioxide < 5 L* D Anion Gap 24 H BUN 9 Creatinine 0.8 Est GFR ( Amer) > 60 Est GFR (Non-Af Amer) > 60 POC Glucose (mg/dL) 264 H 155 H Random Glucose 491 H* Calcium 8.0 L Phosphorus 2.4 L Magnesium 1.5 L Total Bilirubin AST ALT Alkaline Phosphatase Total Protein Albumin Globulin Albumin/Globulin Ratio Triglycerides Cholesterol LDL Cholesterol Direct HDL Cholesterol TSH 3rd Generation Urine Color Urine Clarity Urine pH Ur Specific [place] Urine Protein Urine Glucose (UA) Urine Ketones Urine Blood Urine Nitrate Urine Bilirubin Urine Urobilinogen Ur Leukocyte Esterase Urine RBC (Auto) Urine Microscopic WBC Ur Squamous Epith Cells Urine Bacteria 03/17/18 03/17/18 03/17/18 16:03 16:52 17:50 WBC RBC Hgb Hct MCV MCH MCHC RDW Plt Count MPV Neut % (Auto) Lymph % (Auto) [place] % (Auto) Eos % (Auto) Baso % (Auto) Neut # (Auto) Lymph # (Auto) [place] # (Auto) Eos # (Auto) Baso # (Auto) Sodium 137 Potassium 5.0 Chloride 111 H Carbon Dioxide 11 L* D Anion Gap 20 BUN 8 Creatinine 0.7 Est GFR ( Amer) > 60 Est GFR (Non-Af Amer) > 60 POC Glucose (mg/dL) 155 H 169 H Random Glucose 205 H Calcium 8.6 Phosphorus Magnesium Total Bilirubin AST ALT Alkaline Phosphatase Total Protein Albumin Globulin Albumin/Globulin Ratio Triglycerides Cholesterol LDL Cholesterol Direct HDL Cholesterol TSH 3rd Generation Urine Color Urine Clarity Urine pH Ur Specific [place] Urine Protein Urine Glucose (UA) Urine Ketones Urine Blood Urine Nitrate Urine Bilirubin Urine Urobilinogen Ur Leukocyte Esterase Urine RBC (Auto) Urine Microscopic WBC Ur Squamous Epith Cells Urine Bacteria 03/17/18 03/17/18 03/18/18 18:00 20:18 04:45 WBC 5.2 RBC 3.50 L Hgb 10.0 L Hct 29.3 L MCV 83.8 D MCH 28.5 MCHC 34.0 RDW 15.2 H Plt Count 184 MPV 7.4 Neut % (Auto) 92.6 H Lymph % (Auto) 4.8 L [place] % (Auto) 2.3 Eos % (Auto) 0.1 Baso % (Auto) 0.2 Neut # (Auto) 4.8 Lymph # (Auto) 0.3 L [place] # (Auto) 0.1 Eos # (Auto) 0.0 Baso # (Auto) 0.0 Sodium 136 Potassium 4.7 Chloride 110 H Carbon Dioxide 9 L* Anion Gap 22 H BUN 7 Creatinine 0.7 Est GFR ( Amer) > 60 Est GFR (Non-Af Amer) > 60 POC Glucose (mg/dL) 211 H Random Glucose 183 H Calcium 8.5 Phosphorus Magnesium Total Bilirubin AST ALT Alkaline Phosphatase Total Protein Albumin Globulin Albumin/Globulin Ratio Triglycerides Cholesterol LDL Cholesterol Direct HDL Cholesterol TSH 3rd Generation Urine Color Urine Clarity Urine pH Ur Specific [place] Urine Protein Urine Glucose (UA) Urine Ketones Urine Blood Urine Nitrate Urine Bilirubin Urine Urobilinogen Ur Leukocyte Esterase Urine RBC (Auto) Urine Microscopic WBC Ur Squamous Epith Cells Urine Bacteria 03/18/18 04:45 WBC RBC Hgb Hct MCV MCH MCHC RDW Plt Count MPV Neut % (Auto) Lymph % (Auto) [place] % (Auto) Eos % (Auto) Baso % (Auto) Neut # (Auto) Lymph # (Auto) [place] # (Auto) Eos # (Auto) Baso # (Auto) Sodium 137 Potassium 4.0 Chloride 112 H Carbon Dioxide 16 L Anion Gap 13 BUN 6 L Creatinine 0.6 L Est GFR ( Amer) > 60 Est GFR (Non-Af Amer) > 60 POC Glucose (mg/dL) Random Glucose 158 H Calcium 8.2 L Phosphorus 2.0 L Magnesium 2.0 Total Bilirubin 0.7 AST 196 H D ALT 101 H D Alkaline Phosphatase 172 H D Total Protein 5.7 L Albumin 2.8 L D Globulin 2.9 Albumin/Globulin Ratio 1.0 Triglycerides 166 H Cholesterol 119 LDL Cholesterol Direct 54 HDL Cholesterol 26 L TSH 3rd Generation 3.62 Urine Color Urine Clarity Urine pH Ur Specific [place] Urine Protein Urine Glucose (UA) Urine Ketones Urine Blood Urine Nitrate Urine Bilirubin Urine Urobilinogen Ur Leukocyte Esterase Urine RBC (Auto) Urine Microscopic WBC Ur Squamous Epith Cells Urine Bacteria Fingerstick Blood Sugar Results: 151 Review of Systems - Review of Systems All systems: reviewed and no additional remarkable complaints except (as per HPI ) Critical Care Progress Note - Nutrition Nutrition: Nutrition Category Date Time Status Consistent Carbohydrate [DIET] Diets 03/17/18 Dinner Active Assessment/Plan - Assessment and Plan (Free Text) Assessment: 27 years old female with hx of DM I and multiple admissions for DKA admitted for DKA. DKA - Glucose 185 today - AG 13, Bicarb 16 - on insulin drip - Continue IV Fluids NS - Zofran for Vomiting - BMP q4 - Hypoglycemia protocol - Appreciate Endocrinology recomds Dr Gallego DVT prophylaxis with Lovenox Code Status: full code Case seen and examined with Dr Mota, ICU attending. <Mikie Mota - Last Filed: 03/18/18 12:46> CCU Subjective - Physician Review Subjective (Free Text): Attestation: Patient seen and examined at the bedside with Resident Dr. Margarita Galvez; and I agree with her outline of plans and management documented above as discussed on AM rounds reflecting my review of all applicable clinical data, and participation in the care of the patient throughout the day in ICU; today, March 18, 2018.
[2018-03-18] MEDS: Ciprofloxacin 400mg/200ml D5W 400 MG/200 ML BAG IVPB SCH ×2 (08:08→21:01)
[2018-03-18 09:15] LABS: BANDS 8 % (0-2); LYMPHOCYTE 6 % (20-50); PLATELET ESTIMATE NORMAL (NORMAL); TOTAL CELLS COUNTED 100
[2018-03-18 09:16] LABS: ANISOCYTOSIS SLIGHT; POIKILOCYTOSIS SLIGHT
[2018-03-18 09:17] LABS: MONOCYTE 2 % (0-10); NEUTROPHIL 84 % (42-75)
[2018-03-18] MEDS: Enoxaparin 40 mg Syringe SC SCH ×2 (10:41→10:49)
[2018-03-18] MEDS ORDERED: Potassium Ch 20mEq in D5-1/2NS 1,000 ML IV SCH (11:45)
[2018-03-18] MEDS ORDERED: Insulin Detemir 100 Units/ml Inj SC ONE (12:15)
--- NOTE | 2018-03-18 12:17 | CP.PCM.PN ---
Subjective - Date & Time of Evaluation Date of Evaluation: 03/18/18 Time of Evaluation: 12:19 - Subjective Subjective: C/O FREQUENT PHLEBOTOMIES WANTS TO SLEEP STILL HAS SOME ABDOMINAL DISCOMFORT Objective - Vital Signs/Intake and Output Vital Signs (last 24 hours): Temp Pulse Resp BP Pulse Ox 102.8 F H 130 H 16 110/79 99 03/18/18 11:41 03/18/18 10:00 03/18/18 10:00 03/18/18 10:00 03/18/18 06:00 Intake and Output: 03/18/18 03/18/18 06:59 18:59 Intake Total 5 Balance 5 - Medications Medications: Current Medications Acetaminophen (Tylenol 325mg Tab) 650 mg PO Q4 PRN PRN Reason: Fever >100.4 F Last Admin: 03/17/18 19:36 Dose: 650 mg Al Hydrox/Mg Hydrox/Simethicone (Maalox Plus 30 Ml) 30 ml PO Q4 PRN PRN Reason: Indigestion / Heartburn Dextrose (Dextrose 50% Inj) 0 ml IV STAT PRN; Protocol PRN Reason: Hypoglycemia Protocol Enoxaparin Sodium (Lovenox) 40 mg SC DAILY [facility] PRN Reason: Protocol Last Admin: 03/18/18 10:49 Dose: Not Given Glucagon (Glucagen Diagnostic Kit) 0 mg IM STAT PRN; Protocol PRN Reason: Hypoglycemia Protocol Hydromorphone HCl (Dilaudid) 1 mg IVP Q4 PRN PRN Reason: Pain, moderate (4-7) Last Admin: 03/18/18 09:47 Dose: 1 mg Ciprofloxacin (Cipro 400mg/200ml Dsw) 400 mg in 200 mls @ 200 mls/hr IVPB Q12 [facility] PRN Reason: Protocol Last Admin: 03/18/18 08:08 Dose: 200 mls/hr Doxycycline Hyclate 100 mg/ (Sodium Chloride) 100 mls @ 100 mls/hr IVPB Q12 [facility] PRN Reason: Protocol Last Admin: 03/18/18 10:42 Dose: 100 mls/hr Insulin Human Regular 100 (units/ Sodium Chloride) 101 mls @ 5.05 mls/hr IV .Q20H [facility]; 5 UNITS/HR PRN Reason: Protocol Last Titration: 03/18/18 09:48 Dose: 3 units/hr, 3.03 mls/hr Potassium Chloride/Dextrose/Sod Cl (Potassium Chl 20 Meq In D5-1/2ns) 1,000 mls @ 150 mls/hr IV .Q6H40M [facility] Stop: 03/19/18 11:40 Ibuprofen (Motrin Tab) 400 mg PO Q6 PRN PRN Reason: Fever >100.4 F Insulin Human Lispro (Humalog) 6 units SC TIDAC [facility] Ketorolac Tromethamine (Toradol) 15 mg IVP Q6 PRN PRN Reason: Pain, moderate (4-7) Ketorolac Tromethamine (Toradol) 30 mg IVP Q6 PRN PRN Reason: Pain, severe (8-10) Last Admin: 03/17/18 04:46 Dose: 30 mg Ondansetron HCl (Zofran Inj) 4 mg IVP Q4 PRN PRN Reason: Nausea/Vomiting Last Admin: 03/17/18 16:40 Dose: 4 mg Pantoprazole Sodium (Protonix Inj) 40 mg IVP Q12 [facility] Last Admin: 03/18/18 10:42 Dose: 40 mg - Labs Labs: 03/18/18 04:45 03/18/18 04:45 - Constitutional Appears: In Acute Distress - Head Exam Head Exam: ATRAUMATIC, NORMAL INSPECTION, NORMOCEPHALIC - Eye Exam Eye Exam: EOMI, Normal appearance, PERRL Pupil Exam: NORMAL ACCOMODATION, PERRL - ENT Exam ENT Exam: Mucous Membranes Moist, Normal Exam - Neck Exam Neck Exam: Full ROM, Normal Inspection. absent: Lymphadenopathy - Respiratory Exam Respiratory Exam: Clear to Ausculation Bilateral, NORMAL BREATHING PATTERN - Cardiovascular Exam Cardiovascular Exam: REGULAR RHYTHM, +S1, +S2. absent: Murmur - GI/Abdominal Exam GI & Abdominal Exam: Soft, Tenderness, Normal Bowel Sounds - Rectal Exam Rectal Exam: NORMAL INSPECTION - Extremities Exam Extremities Exam: Full ROM, Normal Capillary Refill, Normal Inspection. absent : Joint Swelling, Pedal Edema - Back Exam Back Exam: NORMAL INSPECTION - Neurological Exam Neurological Exam: Alert, Awake, CN II-XII Intact, Normal Gait, Oriented x3 - Psychiatric Exam Psychiatric exam: Normal Affect, Normal Mood - Skin Skin Exam: Dry, Intact, Normal Color, Warm Assessment and Plan - Assessment and Plan (Free Text) Assessment: DKA--IMPROVING VAGINAL BLEEDING--IMPROVING FEVER--?ETIOLOGY Plan: CONTINUE CURRENT RX CASE DISCUSSED WITH ENDO--WILL D/C INSULIN DRIP AND BEGIN INJECTIONS MONITOR ACUCHECKS AC/HS
[2018-03-18] MEDS: Sodium Chloride 0.45% 1,000 ML IV SCH ×2 (12:48→20:55)
[2018-03-18] MEDS: Insulin Lispro (humaLOG) 100 Units/ml Inj SC SCH ×3 (18:13→21:46)
[2018-03-18] MEDS ORDERED: Insulin Detemir 100 Units/ml Inj SC SCH (22:00)
--- NOTE | 2018-03-19 03:54 | PN ---
Copied To: Monet Gallego MD Attending MD: Monet Gallego MD DATE: 03/18/2018 ENDO FOLLOWUP NOTE LOCATION: ICU, room 425. HISTORY OF PRESENT ILLNESS: This is a 27-year-old female with recent uncontrolled type 1 insulin-dependent diabetes presenting here with nausea, dyspepsia, and intractable vomiting episode with upper abdominal pain and was found to have marked hyperglycemic accelerations with diabetic ketoacidosis and dehydration, and has currently been placed on vigorous IV hydration and intensive insulin therapy with insulin drip infusion as given. Her glycemic levels are fluctuating, but much improved at this time and her glucose values have ranged from 154 to 173 and 197 mg/dL. Her latest chemistries showed a BUN today of 6, sodium 137, potassium 4, chloride 112, CO2 of 16, glucose 158, and creatinine 0.6. Her hemoglobin A1c is 10.4%, which is quite elevated and indicative of suboptimal metabolic control of her diabetic condition despite the use of a [employer] insulin pump as noted. ASSESSMENT This is a 27-year-old female with uncontrolled and decompensated type 1 insulin-dependent diabetes presenting here with diabetic ketoacidosis and dehydration as noted. Moreover, she has been advised to switch her insulin first to a basal and bolus insulin regimen as ordered and as she improves clinically and metabolically, we will switch her over to her [employer] insulin pump given in the outpatient as noted. We will follow up with you. Monet Gallego MD
[2018-03-19 06:43] LABS: BASO % 0.6 % (0.0-2.0); EOS # 0.1 K/uL (0.0-0.7); EOS % 1.2 % (0.0-4.0); HEMOGLOBIN 9.5 g/dL (12.0-16.0); LYMPH # 0.6 K/uL (1.0-4.3); LYMPH % 12.7 % (20.0-40.0); MEAN CELL VOLUME 82.5 fl (81.0-99.0); MEAN CORPUSCULAR HEMOGLOBIN 27.9 pg (27.0-31.0); MEAN CORPUSCULAR HGB CONC 33.8 g/dL (33.0-37.0); MEAN PLATELET VOLUME 8.8 fl (7.2-11.7); MONO # 0.1 K/uL (0.0-0.8); MONO % 2.9 % (0.0-10.0); NEUT # 3.9 K/uL (1.8-7.0); NEUT % 82.6 % (50.0-75.0); NRBC % 0.1 % (0.0-0.0); RBC 3.42 Mil/uL (3.80-5.20); RED CELL DISTRIBUTION WIDTH 15.7 % (11.5-14.5); WHITE BLOOD COUNT 4.7 K/uL (4.8-10.8)
[2018-03-19 07:05] LABS: ALBUMIN 2.9 g/dL (3.5-5.0); ALT/SGPT 126 U/L (9-52); AST/SGOT 287 U/L (14-36); BLOOD UREA NITROGEN 7 mg/dl (7-17); CALCIUM 8.3 mg/dL (8.4-10.2); GFR NON-AFRICAN AMERICAN > 60
[2018-03-19] MEDS: Insulin Lispro (humaLOG) 100 Units/ml Inj SC SCH ×7 (09:28→22:07)
[2018-03-19] MEDS: Enoxaparin 40 mg Syringe SC SCH (09:30)
[2018-03-19] MEDS: Sodium Chloride 0.45% 1,000 ML IV SCH ×3 (09:31→23:03)
--- NOTE | 2018-03-19 11:15 | CP.PCM.PN ---
Subjective - Date & Time of Evaluation Date of Evaluation: 03/19/18 Time of Evaluation: 11:16 - Subjective Subjective: STILL HAS BACK PAINS AND INTERMITTENT FEVER BLOOD CULTURE--KLEBSIELLA VAGINAL BLEEDING RESOLVED Objective - Vital Signs/Intake and Output Vital Signs (last 24 hours): Temp Pulse Resp BP Pulse Ox 100.3 F H 104 H 20 113/68 100 03/19/18 10:00 03/19/18 11:07 03/19/18 08:37 03/19/18 08:37 03/19/18 08:37 - Medications Medications: Current Medications Acetaminophen (Tylenol 325mg Tab) 650 mg PO Q4 PRN PRN Reason: Fever >100.4 F Last Admin: 03/17/18 19:36 Dose: 650 mg Al Hydrox/Mg Hydrox/Simethicone (Maalox Plus 30 Ml) 30 ml PO Q4 PRN PRN Reason: Indigestion / Heartburn Dextrose (Dextrose 50% Inj) 0 ml IV STAT PRN; Protocol PRN Reason: Hypoglycemia Protocol Glucagon (Glucagen Diagnostic Kit) 0 mg IM STAT PRN; Protocol PRN Reason: Hypoglycemia Protocol Hydromorphone HCl (Dilaudid) 1 mg IVP Q4 PRN PRN Reason: Pain, moderate (4-7) Last Admin: 03/19/18 06:30 Dose: 1 mg Insulin Human Regular 100 (units/ Sodium Chloride) 101 mls @ 5.05 mls/hr IV .Q20H [facility]; 5 UNITS/HR PRN Reason: Protocol Last Titration: 03/18/18 09:48 Dose: 3 units/hr, 3.03 mls/hr Ceftriaxone Sodium 1 gm/ (Sodium Chloride) 100 mls @ 100 mls/hr IVPB DAILY [facility] PRN Reason: Protocol Sodium Chloride (Sodium Chloride 0.45%) 1,000 mls @ 100 mls/hr IV .Q10H [facility] Stop: 03/20/18 11:10 Ibuprofen (Motrin Tab) 400 mg PO Q6 PRN PRN Reason: Fever >100.4 F Last Admin: 03/19/18 08:27 Dose: 400 mg Insulin Detemir (Levemir) 14 units SC HS [facility] Insulin Human Lispro (Humalog) 6 units SC TIDAC [facility] Last Admin: 03/19/18 09:28 Dose: 6 u Insulin Human Lispro (Humalog) 0 units SC ACHS [facility] Stop: 03/23/18 16:31 Last Admin: 03/19/18 09:29 Dose: Not Given Ketorolac Tromethamine (Toradol) 15 mg IVP Q6 PRN PRN Reason: Pain, moderate (4-7) Ketorolac Tromethamine (Toradol) 30 mg IVP Q6 PRN PRN Reason: Pain, severe (8-10) Last Admin: 03/17/18 04:46 Dose: 30 mg Ondansetron HCl (Zofran Inj) 4 mg IVP Q4 PRN PRN Reason: Nausea/Vomiting Last Admin: 03/17/18 16:40 Dose: 4 mg Pantoprazole Sodium (Protonix Ec Tab) 40 mg PO DAILY [facility] - Labs Labs: 03/19/18 05:00 03/19/18 05:00 - Constitutional Appears: In Acute Distress - Head Exam Head Exam: ATRAUMATIC, NORMAL INSPECTION, NORMOCEPHALIC - Eye Exam Eye Exam: EOMI, Normal appearance, PERRL Pupil Exam: NORMAL ACCOMODATION, PERRL - ENT Exam ENT Exam: Mucous Membranes Moist, Normal Exam - Neck Exam Neck Exam: Full ROM, Normal Inspection. absent: Lymphadenopathy - Respiratory Exam Respiratory Exam: Rales, NORMAL BREATHING PATTERN - Cardiovascular Exam Cardiovascular Exam: REGULAR RHYTHM, +S1, +S2. absent: Murmur - GI/Abdominal Exam GI & Abdominal Exam: Soft, Normal Bowel Sounds. absent: Tenderness - Rectal Exam Rectal Exam: NORMAL INSPECTION - Extremities Exam Extremities Exam: Full ROM, Normal Capillary Refill, Normal Inspection. absent : Joint Swelling, Pedal Edema - Back Exam Back Exam: NORMAL INSPECTION - Neurological Exam Neurological Exam: Alert, Awake, CN II-XII Intact, Normal Gait, Oriented x3 - Psychiatric Exam Psychiatric exam: Normal Affect, Normal Mood - Skin Skin Exam: Dry, Intact, Normal Color, Warm Assessment and Plan - Assessment and Plan (Free Text) Assessment: DKA-RESOLVED VAGINAL BLEEDING RESOLVED KLEBSIELLA SEPSIS RENAL CALCULI--NON-OBSTRUCTIVE BACK PAIN ANEMIA OF BLOOD LOSS Plan: IV ANTIBIOTICS CHANGE IV TO 1/2 NS PT WANTS TO GO HOME AND TAKE CARE OF HER CHILDREN--WILL PLAN D/C IN AM IF AFEBRILE AND GLU CONTROLLED
[2018-03-19] MEDS: Pantoprazole 40 mg EC Tab PO SCH (11:21)
[2018-03-19] MEDS ORDERED: Dextrose 50% SYRINGE Inj (50 ml) IVP ONE (11:41)
--- NOTE | 2018-03-19 12:49 | PN ---
Copied To: Monet Gallego MD Attending MD: Monet Gallego MD DATE: 03/19/2018 ENDO FOLLOWUP NOTE LOCATION: Room 407. SUBJECTIVE: This is a 27-year-old female with recent uncontrolled type 1 insulin-dependent diabetes, presenting here with intractable vomiting and diarrhea and supervening diabetic ketoacidosis and dehydration, and is now being followed closely for metabolic management. His glycemic levels are fluctuating also because of the variability of her oral intake as noted by the nursing staff. Her chemistries today showed a BUN of 7, sodium 136, potassium 3.5, chloride 110, CO2 18, glucose 83, and creatinine 0.7. Her glucose levels have ranged from 83 to 167 mg/dL overnight. ASSESSMENT AND PLAN: So at this time, we will modify once again her basal and bolus insulin regimen and lower the Levemir to 14 units subcu at bedtime daily to start tonight. We will continue the Humalog given as 6 units subcu t.i.d. before meals as ordered. She received vigorous IV hydration and intensive insulin therapy as noted and given. We will obtain serial chemistries and supplement accordingly as needed. We will follow and advise accordingly. Monet Gallego MD
[2018-03-19] MEDS ORDERED: Insulin Lispro (humaLOG) 100 Units/ml Inj SC ONE (13:00)
[2018-03-19] MEDS: Ciprofloxacin 400mg/200ml D5W 400 MG/200 ML BAG IVPB SCH (13:41)
[2018-03-19] MEDS: Insulin Detemir 100 Units/ml Inj SC SCH (22:04)
[2018-03-20] MEDS ORDERED: Sodium Chloride 0.45% 1,000 ML IV SCH (02:08)
--- NOTE | 2018-03-20 02:09 | CP.PCM.PN ---
Subjective - Date & Time of Evaluation Date of Evaluation: 03/20/18 Time of Evaluation: 02:08 - Subjective Subjective: Called to evaluate patient with HR of 130-135/min and stating that she cannot breathe. Examination finds the patient sitting up in bed awake and alert. EXAM: General: Patient in moderate respiratory distress Resp: Inspiratory rales at the left lung 1/2 up. No wheezing nor Rhonchi CVS: S1 S2 RRR no Gallops Abdomen: Soft, Non-tender, decreased bowel sounds Ext: No edema. ankles painful on palpation Neuro: Non focal EKG: PND CXR: Bibasal interstitial infiltrate ABG:pH 7.45/27/32/21 on RA SpO2 93 on RA A&P: #. Flash pulmonary Edema with respiratory distress and Tachycardia - lasix 80mg given IV STAT - Morphine Sulphate 2mg IVP - O2 at 3L via Nasal canula increased the SpO2 to 96% - Reduce IV Fluid to KVO #. Klebsiella Bacteremia with fever - Continue Antibiotic Adal Jj MD Objective - Vital Signs/Intake and Output Vital Signs (last 24 hours): Temp Pulse Resp BP Pulse Ox 100.4 F H 95 H 18 121/78 99 03/20/18 00:53 03/20/18 00:29 03/20/18 00:29 03/20/18 00:29 03/20/18 00:29 Intake and Output: 03/19/18 03/20/18 18:59 06:59 Intake Total 2800 Balance 2800 - Medications Medications: Current Medications Acetaminophen (Tylenol 325mg Tab) 650 mg PO Q4 PRN PRN Reason: Fever >100.4 F Last Admin: 03/20/18 00:53 Dose: 650 mg Al Hydrox/Mg Hydrox/Simethicone (Maalox Plus 30 Ml) 30 ml PO Q4 PRN PRN Reason: Indigestion / Heartburn Hydromorphone HCl (Dilaudid) 1 mg IVP Q4 PRN PRN Reason: Pain, moderate (4-7) Last Admin: 03/19/18 21:24 Dose: 1 mg Ceftriaxone Sodium 1 gm/ (Sodium Chloride) 100 mls @ 100 mls/hr IVPB DAILY [facility] PRN Reason: Protocol Last Admin: 03/19/18 13:35 Dose: 100 mls/hr Ibuprofen (Motrin Tab) 400 mg PO Q6 PRN PRN Reason: Fever >100.4 F Last Admin: 03/19/18 08:27 Dose: 400 mg Insulin Detemir (Levemir) 14 units SC HS [facility] Last Admin: 03/19/18 22:04 Dose: 14 units Insulin Human Lispro (Humalog) 6 units SC TIDAC [facility] Last Admin: 03/19/18 18:37 Dose: 6 u Insulin Human Lispro (Humalog) 0 units SC ACHS [facility] Stop: 03/23/18 16:31 Last Admin: 03/19/18 22:07 Dose: Not Given Ondansetron HCl (Zofran Inj) 4 mg IVP Q4 PRN PRN Reason: Nausea/Vomiting Last Admin: 03/17/18 16:40 Dose: 4 mg Pantoprazole Sodium (Protonix Ec Tab) 40 mg PO DAILY [facility] Last Admin: 03/19/18 11:21 Dose: Not Given - Labs Labs: 03/19/18 05:00 03/19/18 05:00
[2018-03-20 02:52] LABS: ABG ALLEN TEST YES; ARTERIAL BLOOD GAS HCO3 21.2 mmol/L (21-28); ARTERIAL BLOOD GAS HEMOGLOBIN 9.8 g/dL (11.7-17.4); ARTERIAL BLOOD GAS O2 CAPACITY 13.3 mL/dL (16-24); ARTERIAL BLOOD GAS O2 SAT 75.2 % (95-98); ARTERIAL BLOOD GAS PCO2 27 mm/Hg (35-45); ARTERIAL BLOOD GAS PH 7.45 (7.35-7.45); ARTERIAL BLOOD GAS PO2 32 mm/Hg (80-100); ARTERIAL BLOOD GAS TCO2 19.6 mmol/L (22-28)
[2018-03-20] MEDS: Insulin Lispro (humaLOG) 100 Units/ml Inj SC SCH ×7 (08:56→23:13)
[2018-03-20] MEDS: Pantoprazole 40 mg EC Tab PO SCH (09:00)
--- NOTE | 2018-03-20 09:19 | RAD ---
Date of service: 03/20/2018 HISTORY: Cannot breathe/ Crackles in left lung COMPARISON: No prior. FINDINGS: LUNGS: Extensive bilateral infiltrates. PLEURA: No significant pleural effusion identified, no pneumothorax apparent. CARDIOVASCULAR: Normal. OSSEOUS STRUCTURES: No significant abnormalities. VISUALIZED UPPER ABDOMEN: Normal. OTHER FINDINGS: None. IMPRESSION: Extensive bilateral infiltrates.
--- NOTE | 2018-03-20 12:17 | CP.PCM.PN ---
Subjective - Date & Time of Evaluation Date of Evaluation: 03/20/18 Time of Evaluation: 12:20 - Subjective Subjective: C/O CHEST AND ABDOMINAL PAINS WITH SHORTNESS OF BREATH X SEVERAL HOURS--WAS SEEN BY THE HOSPITALIST,GIVEN LASIX FOR FLASH PULMONARY EDEMA FEELS BETTER EXCEPT FOR ANXIETY AND HEADACHES WITH ABDOMINAL AND ANTERIOR CHEST WALL PAIN Objective - Vital Signs/Intake and Output Vital Signs (last 24 hours): Temp Pulse Resp BP Pulse Ox 98.4 F 108 H 20 106/69 92 L 03/20/18 08:21 03/20/18 08:21 03/20/18 08:21 03/20/18 08:21 03/20/18 08:21 - Medications Medications: Current Medications Acetaminophen (Tylenol 325mg Tab) 650 mg PO Q4 PRN PRN Reason: Fever >100.4 F Last Admin: 03/20/18 00:53 Dose: 650 mg Acetaminophen/Butalbital/Caffeine (Fioricet) 1 tab PO Q4 PRN PRN Reason: Headache Al Hydrox/Mg Hydrox/Simethicone (Maalox Plus 30 Ml) 30 ml PO Q4 PRN PRN Reason: Indigestion / Heartburn Furosemide (Lasix) 40 mg IVP BID [facility] Ceftriaxone Sodium 1 gm/ (Sodium Chloride) 100 mls @ 100 mls/hr IVPB DAILY [facility] PRN Reason: Protocol Last Admin: 03/20/18 09:01 Dose: 100 mls/hr Ibuprofen (Motrin Tab) 400 mg PO Q6 PRN PRN Reason: Fever >100.4 F Last Admin: 03/19/18 08:27 Dose: 400 mg Ibuprofen (Motrin Tab) 400 mg PO Q6 PRN PRN Reason: Pain, moderate (4-7) Insulin Detemir (Levemir) 14 units SC HS [facility] Last Admin: 03/19/18 22:04 Dose: 14 units Insulin Human Lispro (Humalog) 6 units SC TIDAC [facility] Last Admin: 03/20/18 08:56 Dose: 6 u Insulin Human Lispro (Humalog) 0 units SC ACHS [facility] Stop: 03/23/18 16:31 Last Admin: 03/20/18 08:58 Dose: Not Given Ondansetron HCl (Zofran Inj) 4 mg IVP Q4 PRN PRN Reason: Nausea/Vomiting Last Admin: 03/17/18 16:40 Dose: 4 mg Pantoprazole Sodium (Protonix Ec Tab) 40 mg PO DAILY [facility] Last Admin: 03/20/18 09:00 Dose: 40 mg - Labs Labs: 03/19/18 05:00 03/19/18 05:00 - Constitutional Appears: In Acute Distress - Head Exam Head Exam: ATRAUMATIC, NORMAL INSPECTION, NORMOCEPHALIC - Eye Exam Eye Exam: EOMI, Normal appearance, PERRL Pupil Exam: NORMAL ACCOMODATION, PERRL - ENT Exam ENT Exam: Mucous Membranes Moist, Normal Exam - Neck Exam Neck Exam: Full ROM, Normal Inspection. absent: Lymphadenopathy - Respiratory Exam Respiratory Exam: Decreased Breath Sounds, Rales, NORMAL BREATHING PATTERN - Cardiovascular Exam Cardiovascular Exam: Tachycardia, REGULAR RHYTHM, +S1, +S2. absent: Murmur Additional comments: ANTERIOR CHEST WALL TENDERNESS - GI/Abdominal Exam GI & Abdominal Exam: Soft, Tenderness, Normal Bowel Sounds - Rectal Exam Rectal Exam: NORMAL INSPECTION - Extremities Exam Extremities Exam: Full ROM, Normal Capillary Refill, Normal Inspection. absent : Joint Swelling, Pedal Edema - Back Exam Back Exam: NORMAL INSPECTION - Neurological Exam Neurological Exam: Alert, Awake, CN II-XII Intact, Normal Gait, Oriented x3 - Psychiatric Exam Psychiatric exam: Normal Affect, Normal Mood - Skin Skin Exam: Dry, Intact, Normal Color, Warm Assessment and Plan - Assessment and Plan (Free Text) Assessment: FLASH PULMONARY EDEMA DKA--IMPROVED KLEBSIELLA SEPSIS [employer] BLEED RESOLVED CHEST AND ABDOMINAL PAINS ANXIETY HEADACHES Plan: CARDIOLOGY EVAL CT SCAN OF BRAIN ECHOCARDIOGRAM IV LASIX ANALGESICS FOR PAIN OXYGEN RX CONTINUE ANTIBIOTICS
--- NOTE | 2018-03-20 14:15 | PN ---
Copied To: Monet Gallego MD Attending MD: Monet Gallego MD DATE: 03/20/2018 ENDO FOLLOWUP NOTE LOCATION: ICU, room 407. SUBJECTIVE: This is a 27-year-old female with recent uncontrolled type 2 insulin-dependent diabetes, presented with diabetic ketoacidosis and dehydration and is now improving clinically and metabolically as noted thereof. Her glycemic levels are fluctuating but improved as noted. The latest chemistry showed a BUN of 7, sodium 136, potassium 3.5, chloride 110, CO2 18, glucose 83, and creatinine 0.7. ASSESSMENT AND PLAN: So, at this time, we will modify once again her basal and bolus insulin regimen as indicated. We will lower the Levemir to 14 units subcutaneous at bedtime daily to start today. We will continue her Humalog given as . We will obtain serum chemistries and supplement accordingly as needed. We will follow. Monet Gallego MD
--- NOTE | 2018-03-20 15:10 | CP.PCM.CON ---
History of Present Illness - History of Present Illness History of Present Illness: THE PATIENT IS A 27 YEAR OLD FEMALE WITH A HISTORY OF TYPE 1 DM ADMITTED TO ON TELEMETRY WITH DKA. SHE RECEIVED 2L OF IV FLUIDS IN THE ER AND IV FLUIDS AFTERWARDS. LAST NIGHT SHE WAS SOB AND SEEN BY THE HOSPITALIST WHO HEARD RALES AND HAVE HER IV FUROSEMIDE AND SHE FELT BETTER AFTERWARDS. HER EKG SHOWS ST BUT IS OTHERWISE NORMAL. SHE COMPLAINED OF GENERALIZED BODY TENDERNESS BUT DOESN'T HAVE ANY TYPICAL CHEST PAIN. I WAS ASKED BY DR LACY TO SEE HER. SHE ALSO HAD A FEVER AND WAS FOUND TO HAVE KLEBSIELLA BACTEREMIA. Past Patient History - Infectious Disease Hx of Infectious Diseases: None - Tetanus Immunizations Tetanus Immunization: Unknown - Past Medical History & Family History Past Medical History?: Yes - Past Social History Smoking Status: Never Smoked - CARDIAC Hx Cardiac Disorders: No - PULMONARY Hx Respiratory Disorders: No Hx Bronchitis: No - NEUROLOGICAL Hx Neurological Disorder: No - HEENT Hx HEENT Problems: No - RENAL Hx Chronic Kidney Disease: No - ENDOCRINE/METABOLIC Hx Endocrine Disorders: Yes (type 1) - HEMATOLOGICAL/ONCOLOGICAL Hx AIDS: No Hx Human Immunodeficiency Virus (HIV): No - INTEGUMENTARY Hx Dermatological Problems: No - MUSCULOSKELETAL/RHEUMATOLOGICAL Hx Musculoskeletal Disorders: No Hx Falls: No - GASTROINTESTINAL Hx Gastrointestinal Disorders: No - GENITOURINARY/GYNECOLOGICAL Hx Genitourinary Disorders: No - PSYCHIATRIC Hx Psychophysiologic Disorder: No Hx Anxiety: No Hx Bipolar Disorder: No Hx Depression: No Hx Paranoia: No Hx Post Traumatic Stress Disorder: No Hx Schizophrenia: No Hx Substance Use: No - SURGICAL HISTORY Hx Surgeries: Yes Hx Section: Yes (x2) Other/Comment: rt thigh abcess I&D (2006) / insulin pump c secetion - ANESTHESIA Hx Anesthesia: Yes Hx Anesthesia Reactions: No Hx Malignant Hyperthermia: No Has any member of the family had a problem w/ anesthesia?: No Meds Allergies/Adverse Reactions: Allergies Allergy/AdvReac Type Severity Reaction Status Date / Time No Known Allergies Allergy Verified 03/17/18 01:30 - Medications Medications: Current Medications Acetaminophen (Tylenol 325mg Tab) 650 mg PO Q4 PRN PRN Reason: Fever >100.4 F Last Admin: 03/20/18 00:53 Dose: 650 mg Acetaminophen/Butalbital/Caffeine (Fioricet) 1 tab PO Q4 PRN PRN Reason: Headache Al Hydrox/Mg Hydrox/Simethicone (Maalox Plus 30 Ml) 30 ml PO Q4 PRN PRN Reason: Indigestion / Heartburn Furosemide (Lasix) 40 mg IVP BID [facility] Ceftriaxone Sodium 1 gm/ (Sodium Chloride) 100 mls @ 100 mls/hr IVPB DAILY [facility] PRN Reason: Protocol Last Admin: 03/20/18 09:01 Dose: 100 mls/hr Ibuprofen (Motrin Tab) 400 mg PO Q6 PRN PRN Reason: Fever >100.4 F Last Admin: 03/19/18 08:27 Dose: 400 mg Ibuprofen (Motrin Tab) 400 mg PO Q6 PRN PRN Reason: Pain, moderate (4-7) Insulin Detemir (Levemir) 14 units SC HS [facility] Last Admin: 03/19/18 22:04 Dose: 14 units Insulin Human Lispro (Humalog) 6 units SC TIDAC [facility] Last Admin: 03/20/18 12:38 Dose: Not Given Insulin Human Lispro (Humalog) 0 units SC ACHS [facility] Stop: 03/23/18 16:31 Last Admin: 03/20/18 12:38 Dose: Not Given Ondansetron HCl (Zofran Inj) 4 mg IVP Q4 PRN PRN Reason: Nausea/Vomiting Last Admin: 03/17/18 16:40 Dose: 4 mg Pantoprazole Sodium (Protonix Ec Tab) 40 mg PO DAILY [facility] Last Admin: 03/20/18 09:00 Dose: 40 mg Physical Exam - Respiratory Exam Respiratory Exam: Clear to Auscultation Bilateral - Cardiovascular Exam Cardiovascular Exam: Tachycardia, REGULAR RHYTHM, +S1, +S2 Additional comments: MILD CHEST PALPATION WELL TOUCHING LE AND BACK CAUSED TENDERNESS - Additional Findings Additional findings: EKG ST BUT OTHERWISE NORMAL LABS NOTED CXR REPORT NOTED PATIENT DECLINED AM LABS INCLUDING PBNP AND TROPONIN Results - Vital Signs Recent Vital Signs: Last Vital Signs Temp 98.8 F 03/20/18 12:38 Pulse 114 H 03/20/18 12:38 Resp 20 03/20/18 12:38 BP 108/73 03/20/18 12:38 Pulse Ox 92 L 03/20/18 12:38 - Labs Result Diagrams: 03/19/18 05:00 03/19/18 05:00 Labs: Laboratory Results - last 24 hr 03/19/18 03/19/18 03/19/18 16:44 18:26 21:52 pCO2 pO2 HCO3 ABG pH ABG Total CO2 ABG O2 Saturation ABG O2 Content ABG Base Excess ABG Hemoglobin ABG Carboxyhemoglobin POC ABG HHb (Measured) ABG Methemoglobin ABG O2 Capacity Rivera Test A-a O2 Difference Hgb O2 Saturation FiO2 Crit Value Called To Crit Value Called By Crit Value Read Back Blood Gas Notified Time POC Glucose (mg/dL) 149 H 175 H 158 H 03/20/18 03/20/18 03/20/18 00:44 02:34 05:33 pCO2 27 L pO2 32 L* HCO3 21.2 ABG pH 7.45 ABG Total CO2 19.6 L ABG O2 Saturation 75.2 L ABG O2 Content 10.0 L ABG Base Excess -4.2 L ABG Hemoglobin 9.8 L ABG Carboxyhemoglobin 2.1 H POC ABG HHb (Measured) 23.9 H ABG Methemoglobin 1.6 ABG O2 Capacity 13.3 L Rivera Test Yes A-a O2 Difference 84.0 Hgb O2 Saturation 72.4 L FiO2 21.0 Crit Value Called To Dr jhonny dodd Crit Value Called By Crit Value Read Back Y Blood Gas Notified Time 252 POC Glucose (mg/dL) 164 H 201 H 03/20/18 11:15 pCO2 pO2 HCO3 ABG pH ABG Total CO2 ABG O2 Saturation ABG O2 Content ABG Base Excess ABG Hemoglobin ABG Carboxyhemoglobin POC ABG HHb (Measured) ABG Methemoglobin ABG O2 Capacity Rivera Test A-a O2 Difference Hgb O2 Saturation FiO2 Crit Value Called To Crit Value Called By Crit Value Read Back Blood Gas Notified Time POC Glucose (mg/dL) 89 Assessment & Plan - Assessment and Plan (Free Text) Assessment: DKA KLEBSIELLA BACTEREMIA PROBABLE FLUID OVERLOAD REASON FOR SOB-BETTER NOW GENERALIZED BODY TENDERNESS Plan: THE PATIENT IS ON IV ANTIBIOTICS, FUROSEMIDE, INSULIN AND PAIN MEDICINES ECHOCARDIOGRAM ORDERED TO ASSESS LV FUNCTION
[2018-03-20] MEDS ORDERED: Lidocaine 5% Patch TD PRN (23:15)
[2018-03-20] MEDS: Insulin Detemir 100 Units/ml Inj SC SCH (23:16)
[2018-03-21] MEDS: Apap-Butalbital-Caffeine 325-50-40mg Tab PO PRN ×2 (05:41→10:55)
[2018-03-21 06:14] LABS: ABG ALLEN TEST YES; ARTERIAL BLOOD GAS HEMOGLOBIN 8.1 g/dL (11.7-17.4); ARTERIAL BLOOD GAS O2 CAPACITY 11.2 mL/dL (16-24); ARTERIAL BLOOD GAS O2 SAT 98.5 % (95-98); ARTERIAL BLOOD GAS PCO2 32 mm/Hg (35-45); ARTERIAL BLOOD GAS PH 7.53 (7.35-7.45); ARTERIAL BLOOD GAS PO2 74 mm/Hg (80-100); ARTERIAL BLOOD GAS TCO2 27.7 mmol/L (22-28)
[2018-03-21 06:32] LABS: BASO % 0.7 % (0.0-2.0); EOS # 0.1 K/uL (0.0-0.7); EOS % 1.1 % (0.0-4.0); HEMOGLOBIN 8.6 g/dL (12.0-16.0); LYMPH # 1.4 K/uL (1.0-4.3); LYMPH % 24.3 % (20.0-40.0); MEAN CELL VOLUME 80.7 fl (81.0-99.0); MEAN CORPUSCULAR HGB CONC 33.5 g/dL (33.0-37.0); MEAN PLATELET VOLUME 7.9 fl (7.2-11.7); MONO # 0.5 K/uL (0.0-0.8); MONO % 7.8 % (0.0-10.0); NEUT # 3.9 K/uL (1.8-7.0); NEUT % 66.1 % (50.0-75.0); RBC 3.2 Mil/uL (3.80-5.20); RED CELL DISTRIBUTION WIDTH 15.5 % (11.5-14.5); WHITE BLOOD COUNT 5.9 K/uL (4.8-10.8)
[2018-03-21 06:54] LABS: ALBUMIN 2.8 g/dL (3.5-5.0); ALT/SGPT 126 U/L (9-52); AST/SGOT 153 U/L (14-36); BLOOD UREA NITROGEN 13 mg/dl (7-17); GFR NON-AFRICAN AMERICAN > 60
[2018-03-21] MEDS: Insulin Lispro (humaLOG) 100 Units/ml Inj SC SCH ×5 (07:04→21:29)
[2018-03-21] MEDS ORDERED: Lidocaine 5% Patch TD SCH (09:00)
[2018-03-21] MEDS: Pantoprazole 40 mg EC Tab PO SCH (09:23)
--- NOTE | 2018-03-21 09:26 | RAD ---
Date of service: 03/21/2018 PROCEDURE: CHEST RADIOGRAPH, 1 VIEW HISTORY: chf COMPARISON: 03/20/2018 FINDINGS: LUNGS: Previously seen areas of edema and/or consolidation are identified bilaterally. These are probably not significantly changed given for differences in technique. PLEURA: Small left effusion is not excluded. CARDIOVASCULAR: Vasculature appears to be congested. OSSEOUS STRUCTURES: No significant abnormalities. VISUALIZED UPPER ABDOMEN: Normal. OTHER FINDINGS: None. IMPRESSION: Stable areas of edema and/or infiltrate bilaterally.
--- NOTE | 2018-03-21 09:41 | CARD ---
APPROVED REPORT Date of service: 03/20/2018 EKG Measurement Heart [id number] <Conclusion> Sinus tachycardia Nonspecific T wave abnormality Abnormal ECG
--- NOTE | 2018-03-21 10:22 | CT ---
Date of service: 03/20/2018 PROCEDURE: CT HEAD WITHOUT CONTRAST. HISTORY: headaches COMPARISON: None available. TECHNIQUE: Axial computed tomography images were obtained through the head/brain without intravenous contrast. Radiation dose: Total exam DLP = 713 mGy-cm. This CT exam was performed using one or more of the following dose reduction techniques: Automated exposure control, adjustment of the mA and/or kV according to patient size, and/or use of iterative reconstruction technique. FINDINGS: HEMORRHAGE: No intracranial hemorrhage. BRAIN: No mass effect or edema. No atrophy or chronic microvascular ischemic changes. VENTRICLES: Unremarkable. No hydrocephalus. CALVARIUM: Unremarkable. PARANASAL SINUSES: Unremarkable as visualized. No significant inflammatory changes. MASTOID AIR CELLS: Unremarkable as visualized. No inflammatory changes. OTHER FINDINGS: None. IMPRESSION: Normal CT of the Head.
[2018-03-21] MEDS ORDERED: Potassium Chloride 20 mEq ER Tab PO ONE (10:24)
--- NOTE | 2018-03-21 10:29 | CP.PCM.PN ---
Subjective - Date & Time of Evaluation Date of Evaluation: 03/21/18 Time of Evaluation: 10:30 - Subjective Subjective: SHORTNESS OF BREATH IMPROVED NO CHEST PAINS REFUSED LABS YESTERDAY Objective - Vital Signs/Intake and Output Vital Signs (last 24 hours): Temp Pulse Resp BP Pulse Ox 98.4 F 98 H 20 106/70 100 03/21/18 08:19 03/21/18 08:19 03/21/18 08:19 03/21/18 08:19 03/21/18 08:19 - Medications Medications: Current Medications Acetaminophen (Tylenol 325mg Tab) 650 mg PO Q4 PRN PRN Reason: Fever >100.4 F Last Admin: 03/20/18 00:53 Dose: 650 mg Acetaminophen/Butalbital/Caffeine (Fioricet) 1 tab PO Q4 PRN PRN Reason: Headache Last Admin: 03/21/18 05:41 Dose: 1 tab Al Hydrox/Mg Hydrox/Simethicone (Maalox Plus 30 Ml) 30 ml PO Q4 PRN PRN Reason: Indigestion / Heartburn Furosemide (Lasix) 40 mg IVP BID [facility] Last Admin: 03/21/18 09:28 Dose: Not Given Ceftriaxone Sodium 1 gm/ (Sodium Chloride) 100 mls @ 100 mls/hr IVPB DAILY [facility] PRN Reason: Protocol Last Admin: 03/21/18 09:29 Dose: Not Given Ibuprofen (Motrin Tab) 400 mg PO Q6 PRN PRN Reason: Fever >100.4 F Last Admin: 03/19/18 08:27 Dose: 400 mg Ibuprofen (Motrin Tab) 400 mg PO Q6 PRN PRN Reason: Pain, moderate (4-7) Insulin Detemir (Levemir) 14 units SC HS [facility] Last Admin: 03/20/18 23:16 Dose: 14 units Insulin Human Lispro (Humalog) 0 units SC ACHS [facility] Stop: 03/23/18 16:31 Last Admin: 03/21/18 07:04 Dose: 3 u Insulin Human Lispro (Humalog) 4 units SC ACB [facility] Last Admin: 03/21/18 09:24 Dose: 4 u Insulin Human Lispro (Humalog) 6 units SC ACL [facility] Insulin Human Lispro (Humalog) 8 units SC ACD [facility] Lidocaine (Lidoderm) 1 ea TD DAILY PRN PRN Reason: Pain, moderate (4-7) Ondansetron HCl (Zofran Inj) 4 mg IVP Q4 PRN PRN Reason: Nausea/Vomiting Last Admin: 03/17/18 16:40 Dose: 4 mg Pantoprazole Sodium (Protonix Ec Tab) 40 mg PO DAILY [facility] Last Admin: 03/21/18 09:23 Dose: 40 mg - Labs Labs: 03/21/18 06:25 03/21/18 06:25 - Constitutional Appears: No Acute Distress - Head Exam Head Exam: ATRAUMATIC, NORMAL INSPECTION, NORMOCEPHALIC - Eye Exam Eye Exam: EOMI, Normal appearance, PERRL Pupil Exam: NORMAL ACCOMODATION, PERRL - ENT Exam ENT Exam: Mucous Membranes Moist, Normal Exam - Neck Exam Neck Exam: Full ROM, Normal Inspection. absent: Lymphadenopathy - Respiratory Exam Respiratory Exam: Decreased Breath Sounds, Rales, NORMAL BREATHING PATTERN - Cardiovascular Exam Cardiovascular Exam: REGULAR RHYTHM, +S1, +S2. absent: Murmur - GI/Abdominal Exam GI & Abdominal Exam: Soft, Normal Bowel Sounds. absent: Tenderness - Rectal Exam Rectal Exam: NORMAL INSPECTION - Extremities Exam Extremities Exam: Full ROM, Normal Capillary Refill, Normal Inspection. absent : Joint Swelling, Pedal Edema - Back Exam Back Exam: NORMAL INSPECTION - Neurological Exam Neurological Exam: Alert, Awake, CN II-XII Intact, Normal Gait, Oriented x3 - Psychiatric Exam Psychiatric exam: Normal Affect, Normal Mood - Skin Skin Exam: Dry, Intact, Normal Color, Warm Assessment and Plan - Assessment and Plan (Free Text) Assessment: FLASH PULMONARY EDEMA--PROBABLE FLUID OVERLOAD--IMPROVING HYPOKALEMIA--DUE TO DIURETICS DKA-IMPROVING KLEBSIELLA SEPSIS ANEMIA DUE TO VAGINAL BLOOD LOSS HEPATIC INFLAMMATION DUE TO SEPSIS Plan: CONTINUE CURRENT RX WILL PROBABLY D/C IN AM IF STABLE FURTHER WORKUP OUT PT
[2018-03-21] MEDS ORDERED: Insulin Lispro (humaLOG) 100 Units/ml Inj SC SCH ×2 (11:30→16:30)
--- NOTE | 2018-03-21 14:42 | PN ---
Copied To: Monet Gallego MD Attending MD: Monet Gallego MD DATE: 03/21/2018 ENDO FOLLOWUP NOTE LOCATION: In room 407. SUBJECTIVE: This is a 27-year-old female with recent uncontrolled type 1 insulin-dependent diabetes, presenting here with diabetic ketoacidosis and dehydration and is now being followed closely for metabolic management. She received vigorous IV hydration with intensive insulin therapy using an insulin drip infusion as given and noted. Her glycemic levels are fluctuating, but improved and also her oral intake is quite variable as per the nursing staff. Her glucose levels overnight have ranged from 220 to 281 mg/dL. LABORATORY DATA: Her latest chemistry showed a BUN of 13, sodium 134, potassium 3.2, chloride 100, CO2 of 24, glucose 262, and creatinine 0.6. She has elevated liver transaminases as noted. Her hemoglobin A1c is quite elevated at 10.4% indicative of suboptimal metabolic control of her diabetic condition even prior to this admission. ASSESSMENT: This is a 27-year-old female with uncontrolled and decompensated type 1 insulin-dependent diabetes, presenting here with diabetic ketoacidosis and dehydration, and is now being followed closely for metabolic management. She also had recent dysfunctional uterine bleeding with severe lower back pain and pelvic pain related to recent initiation of hormonal therapy by her adventure guide as noted. PLAN OF MANAGEMENT: As discussed lengthily with the patient at bedside, the imperative need for tighter metabolic control cannot but be overemphasized, especially that she is a young person with greater potential for development of microvascular and macrovascular diabetic complications as noted if she remains having suboptimal metabolic control of her diabetic condition. We will modify the current basal insulin and increase the Levemir to 18 units subcu at bedtime daily to start tonight. We will continue the Humalog modified at this time to adjust the variability of her meal portions and we will change the Humalog to 4 units before breakfast, 6 units before lunch and 8 units before dinner to start today. We will titrate incrementally as indicated to optimize metabolic control. We will obtain serial chemistries and supplement accordingly needed. We will follow and advise accordingly. Monet Gallego MD [facility] # [phone]
[2018-03-21] MEDS: Promethazine DM 12.5 mg-30 mg/10 ml Syrup PO PRN (16:54)
[2018-03-21] MEDS: Acyclovir 5% OINT 15 APPLIC/15 GM EXT SCH (16:54)
[2018-03-21] MEDS: Tmp-Smz 800 mg-160 mg DS Tab PO SCH (21:29)
[2018-03-21] MEDS ORDERED: Insulin Detemir 100 Units/ml Inj SC SCH (22:00)
[2018-03-22 00:07] VITALS: RESP 18
[2018-03-22 06:39] LABS: BLOOD UREA NITROGEN 14 mg/dl (7-17); CALCIUM 8.4 mg/dL (8.4-10.2); GFR NON-AFRICAN AMERICAN > 60
[2018-03-22] MEDS: Insulin Lispro (humaLOG) 100 Units/ml Inj SC SCH ×3 (06:41→08:46)
[2018-03-22 08:18] VITALS: BP 112/71; PULSE 99; TEMP 99.3; O2SAT 96
[2018-03-22] MEDS: Acyclovir 5% OINT 15 APPLIC/15 GM EXT SCH (08:40)
[2018-03-22] MEDS: Pantoprazole 40 mg EC Tab PO SCH (08:40)
[2018-03-22] MEDS: Tmp-Smz 800 mg-160 mg DS Tab PO SCH (08:41)
[2018-03-22] MEDS: Promethazine DM 12.5 mg-30 mg/10 ml Syrup PO PRN (08:42)
--- NOTE | 2018-03-22 09:01 | CP.PCM.DIS ---
Provider - Provider Date of Admission: 03/17/18 02:21 Attending physician: Juwan Small MD Time Spent in preparation of Discharge (in minutes): 35 Diagnosis - Discharge Diagnosis (1) Fluid overload Status: Acute (2) Klebsiella infection Status: Acute (3) DKA (diabetic ketoacidoses) Status: Acute Priority: High (4) Abdominal pain Status: Acute (5) Abnormal liver function tests Status: Acute (6) Back pain Status: Acute (7) DVT prophylaxis Status: Acute (8) Dehydration Status: Acute (9) Diabetes mellitus Status: Acute (10) Dysfunctional uterine bleeding Status: Acute Hospital Course - Lab Results Lab Results: Micro Results 03/18/18 06:09 Naris MRSA Culture (Admit) - Final MRSA NOT DETECTED 03/17/18 02:40 Blood-Venous Blood Culture - Final Klebsiella Pneumoniae Ssp Pneu 03/17/18 02:40 Blood-Venous Gram Stain - Final 03/17/18 02:55 Blood-Venous Blood Culture - Final Klebsiella Pneumoniae Ssp Pneu 03/17/18 02:55 Blood-Venous Gram Stain - Final 03/17/18 11:40 Nose MRSA Culture (Admit) - Final MRSA NOT DETECTED 03/17/18 08:41 Urine Urine Culture - Final No Growth (<1,000 CFU/ML) Most Recent Lab Values WBC 5.9 K/uL (4.8-10.8) 03/21/18 06:25 RBC 3.20 Mil/uL (3.80-5.20) L 03/21/18 06:25 Hgb 8.6 g/dL (12.0-16.0) L 03/21/18 06:25 Hct 25.8 % (34.0-47.0) L 03/21/18 06:25 MCV 80.7 fl (81.0-99.0) L 03/21/18 06:25 MCH 27.0 pg (27.0-31.0) 03/21/18 06:25 MCHC 33.5 g/dL (33.0-37.0) 03/21/18 06:25 RDW 15.5 % (11.5-14.5) H 03/21/18 06:25 Plt Count 205 K/uL (130-400) 03/21/18 06:25 MPV 7.9 fl (7.2-11.7) 03/21/18 06:25 Neut % (Auto) 66.1 % (50.0-75.0) 03/21/18 06:25 Lymph % (Auto) 24.3 % (20.0-40.0) 03/21/18 06:25 [place] % (Auto) 7.8 % (0.0-10.0) 03/21/18 06:25 Eos % (Auto) 1.1 % (0.0-4.0) 03/21/18 06:25 Baso % (Auto) 0.7 % (0.0-2.0) 03/21/18 06:25 Neut # (Auto) 3.9 K/uL (1.8-7.0) 03/21/18 06:25 Lymph # (Auto) 1.4 K/uL (1.0-4.3) 03/21/18 06:25 [place] # (Auto) 0.5 K/uL (0.0-0.8) 03/21/18 06:25 Eos # (Auto) 0.1 K/uL (0.0-0.7) 03/21/18 06:25 Baso # (Auto) 0.0 K/uL (0.0-0.2) 03/21/18 06:25 Neutrophils % (Manual) 84 % (42-75) H 03/18/18 04:45 Band Neutrophils % 8 % (0-2) H 03/18/18 04:45 Lymphocytes % (Manual) 6 % (20-50) L 03/18/18 04:45 Monocytes % (Manual) 2 % (0-10) 03/18/18 04:45 Platelet Estimate Normal (NORMAL) 03/18/18 04:45 Poikilocytosis (manual Slight 03/18/18 04:45 Anisocytosis (manual) Slight 03/18/18 04:45 pCO2 32 mm/Hg (35-45) L 03/21/18 06:06 pO2 74 mm/Hg (80-100) L 03/21/18 06:06 HCO3 28.0 mmol/L (21-28) 03/21/18 06:06 ABG pH 7.53 (7.35-7.45) H 03/21/18 06:06 ABG Total CO2 27.7 mmol/L (22-28) 03/21/18 06:06 ABG O2 Saturation 98.5 % (95-98) H 03/21/18 06:06 ABG O2 Content 11.0 ML/dL (15-23) L 03/21/18 06:06 ABG Base Excess 3.9 mmol/L (-2.0-3.0) H 03/21/18 06:06 ABG Hemoglobin 8.1 g/dL (11.7-17.4) L 03/21/18 06:06 ABG Carboxyhemoglobin 1.6 % (0.5-1.5) H 03/21/18 06:06 POC ABG HHb (Measured) 1.5 % (0.0-5.0) 03/21/18 06:06 ABG Methemoglobin 1.5 % (0.0-3.0) 03/21/18 06:06 ABG O2 Capacity 11.2 mL/dL (16-24) L 03/21/18 06:06 Rivera Test Yes 03/21/18 06:06 ABG Potassium 3.1 mmol/L (3.6-5.2) L 03/17/18 02:02 A-a O2 Difference 143.0 mm/Hg 03/21/18 06:06 Hgb O2 Saturation 95.3 % (95.0-98.0) 03/21/18 06:06 Sodium 135.0 mmol/L (132-148) 03/17/18 02:02 Chloride 103.0 mmol/L (98-107) 03/17/18 02:02 Glucose 415 mg/dL (65-105) H* D 03/17/18 02:02 Lactate 4.2 mmol/L (0.7-2.1) H* 03/17/18 02:02 FiO2 36.0 % 03/21/18 06:06 Crit Value Called To Dr jhonny dodd 03/20/18 02:34 Crit Value Called By Esau 03/20/18 02:34 Crit Value Read Back Y 03/20/18 02:34 Blood Gas Notified Time 252 03/20/18 02:34 Sodium 139 mmol/l (132-148) 03/22/18 05:55 Potassium 3.6 MMOL/L (3.6-5.0) 03/22/18 05:55 Chloride 104 mmol/L (98-107) 03/22/18 05:55 Carbon Dioxide 29 mmol/L (22-30) 03/22/18 05:55 Anion Gap 10 (10-20) 03/22/18 05:55 BUN 14 mg/dl (7-17) 03/22/18 05:55 Creatinine 0.6 mg/dl (0.7-1.2) L 03/22/18 05:55 Est GFR ( Amer) > 60 03/22/18 05:55 Est GFR (Non-Af Amer) > 60 03/22/18 05:55 POC Glucose (mg/dL) 146 mg/dL (65-110) H 03/21/18 21:01 Random Glucose 137 mg/dL (65-105) H 03/22/18 05:55 Hemoglobin A1c 10.4 % (4.2-6.5) H 03/18/18 04:45 Calcium 8.4 mg/dL (8.4-10.2) 03/22/18 05:55 Phosphorus 2.6 mg/dl (2.5-4.5) 03/21/18 06:25 Magnesium 1.7 MG/DL (1.6-2.3) 03/21/18 06:25 Total Bilirubin 2.3 mg/dl (0.2-1.3) H 03/21/18 06:25 AST 153 U/L (14-36) H D 03/21/18 06:25 ALT 126 U/L (9-52) H 03/21/18 06:25 Alkaline Phosphatase 282 U/L (38-126) H D 03/21/18 06:25 Total Protein 5.7 G/DL (6.3-8.2) L 03/21/18 06:25 Albumin 2.8 g/dL (3.5-5.0) L 03/21/18 06:25 Globulin 2.9 gm/dL (2.2-3.9) 03/21/18 06:25 Albumin/Globulin Ratio 1.0 (1.0-2.1) 03/21/18 06:25 Triglycerides 166 mg/DL (0-149) H 03/18/18 04:45 Cholesterol 119 mg/dL (0-199) 03/18/18 04:45 LDL Cholesterol Direct 54 mg/dL (0-129) 03/18/18 04:45 HDL Cholesterol 26 MG/DL (30-70) L 03/18/18 04:45 Lipase 38 U/L (23-300) 03/17/18 02:10 TSH 3rd Generation 3.62 mIU/ML (0.46-4.68) 03/18/18 04:45 Arterial Blood Potassium 3.1 mmol/L (3.6-5.2) L 03/17/18 02:02 Urine Color Yellow (YELLOW) 03/17/18 08:41 Urine Clarity Cloudy (Clear) 03/17/18 08:41 Urine pH 5.0 (5.0-8.0) 03/17/18 08:41 Ur Specific [place] 1.025 (1.003-1.030) 03/17/18 08:41 Urine Protein Negative mg/dL (NEGATIVE) 03/17/18 08:41 Urine Glucose (UA) Neg mg/dL (Normal) 03/17/18 08:41 Urine Ketones Negative mg/dL (NEGATIVE) 03/17/18 08:41 Urine Blood Small (NEGATIVE) 03/17/18 08:41 Urine Nitrate Negative (NEGATIVE) 03/17/18 08:41 Urine Bilirubin Negative (NEGATIVE) 03/17/18 08:41 Urine Urobilinogen 0.2-1.0 mg/dL (0.2-1.0) 03/17/18 08:41 Ur Leukocyte Esterase Neg Dian/uL (Negative) 03/17/18 08:41 Urine RBC (Auto) 6 /hpf (0-3) H 03/17/18 08:41 Urine Microscopic WBC 2 /hpf (0-5) 03/17/18 08:41 Ur Squamous Epith Cells 6 /hpf (0-5) H 03/17/18 08:41 Urine Bacteria Rare (<OCC) 03/17/18 08:41 - Hospital Course Hospital Course: refusing iv meds needs to go home to children denies chest/abdominal pains/sob feels better vaginal bleeding resolved Discharge Exam - Head Exam Head Exam: ATRAUMATIC, NORMAL INSPECTION, NORMOCEPHALIC - Eye Exam Eye Exam: EOMI, Normal appearance, PERRL Pupil Exam: NORMAL ACCOMODATION, PERRL - GI/Abdominal Exam GI & Abdominal Exam: Normal Bowel Sounds - Rectal Exam Rectal Exam: NORMAL INSPECTION - Neurological Exam Neurological exam: Alert, CN II-XII Intact, Normal Gait, Oriented x3, Reflexes Normal - Psychiatric Exam Psychiatric exam: Normal Affect, Normal Mood - Skin Skin Exam: Dry, Intact, Normal Color, Warm Discharge Plan - Follow Up Plan Condition: FAIR Disposition: HOME/ ROUTINE Patient education suggested?: Yes Additional Instructions: discharge home today on po antibiotics and lasix continue insulin rx as per endo follow up with pmd
--- NOTE | 2018-03-22 09:30 | RAD ---
Date of service: 03/22/2018 PROCEDURE: CHEST RADIOGRAPH, 1 VIEW HISTORY: CHF COMPARISON: Comparison chest 03/21/2018. FINDINGS: LUNGS: Interval slight improvement previously noted diffuse bilateral infiltrates ; residual mild bilateral mid to lower lobe residual infiltrates and bilateral effusions. PLEURA: No pneumothorax or pleural fluid seen. CARDIOVASCULAR: Normal. OSSEOUS STRUCTURES: No significant abnormalities. VISUALIZED UPPER ABDOMEN: Normal. OTHER FINDINGS: None. IMPRESSION: Interval slight improvement previously noted diffuse bilateral infiltrates ; residual mild bilateral mid to lower lobe residual infiltrates and bilateral effusions.
--- NOTE | 2018-03-22 09:41 | CP.PCM.PN ---
Subjective - Date & Time of Evaluation Date of Evaluation: 03/22/18 Time of Evaluation: 08:30 - Subjective Subjective: BREATHING WELL THIS MORNING NO CHEST PAIN, FEVERS OR CHILLS Objective - Vital Signs/Intake and Output Vital Signs (last 24 hours): Temp Pulse Resp BP Pulse Ox 99.3 F 99 H 18 112/71 96 03/22/18 08:18 03/22/18 08:18 03/22/18 08:18 03/22/18 08:40 03/22/18 08:18 - Medications Medications: Current Medications Acetaminophen (Tylenol 325mg Tab) 650 mg PO Q4 PRN PRN Reason: Fever >100.4 F Last Admin: 03/20/18 00:53 Dose: 650 mg Acetaminophen/Butalbital/Caffeine (Fioricet) 1 tab PO Q4 PRN PRN Reason: Headache Last Admin: 03/21/18 10:55 Dose: 1 tab Acyclovir (Zovirax 5% Oint) 1 applic EXT TID [facility] Last Admin: 03/22/18 08:40 Dose: 1 applic Al Hydrox/Mg Hydrox/Simethicone (Maalox Plus 30 Ml) 30 ml PO Q4 PRN PRN Reason: Indigestion / Heartburn Furosemide (Lasix) 40 mg PO BID [facility] Last Admin: 03/22/18 08:40 Dose: 40 mg Ibuprofen (Motrin Tab) 400 mg PO Q6 PRN PRN Reason: Fever >100.4 F Last Admin: 03/19/18 08:27 Dose: 400 mg Ibuprofen (Motrin Tab) 400 mg PO Q6 PRN PRN Reason: Pain, moderate (4-7) Insulin Detemir (Levemir) 18 units SC HS [facility] Last Admin: 03/21/18 22:10 Dose: 10 u Insulin Human Lispro (Humalog) 0 units SC ACHS [facility] Stop: 03/23/18 16:31 Last Admin: 03/22/18 06:41 Dose: Not Given Insulin Human Lispro (Humalog) 4 units SC ACB [facility] Last Admin: 03/22/18 08:46 Dose: Not Given Insulin Human Lispro (Humalog) 6 units SC ACL [facility] Last Admin: 03/21/18 11:39 Dose: 6 u Insulin Human Lispro (Humalog) 8 units SC ACD [facility] Last Admin: 03/21/18 16:53 Dose: 8 units Lidocaine (Lidoderm) 1 ea TD DAILY PRN PRN Reason: Pain, moderate (4-7) Ondansetron HCl (Zofran Inj) 4 mg IVP Q4 PRN PRN Reason: Nausea/Vomiting Last Admin: 03/17/18 16:40 Dose: 4 mg Pantoprazole Sodium (Protonix Ec Tab) 40 mg PO DAILY [facility] Last Admin: 03/22/18 08:40 Dose: 40 mg Promethazine HCl/Dextromethorphan (Phenergan Dm Syrup) 10 ml PO Q6 PRN PRN Reason: Cough Last Admin: 03/22/18 08:42 Dose: 10 ml Trimethoprim/Sulfamethoxazole (Bactrim Ds Tab) 1 tab PO Q12 [facility] PRN Reason: Protocol Last Admin: 03/22/18 08:41 Dose: 1 tab - Labs Labs: 03/21/18 06:25 03/22/18 05:55 - Respiratory Exam Respiratory Exam: Clear to Ausculation Bilateral - Cardiovascular Exam Cardiovascular Exam: REGULAR RHYTHM, +S1, +S2 - Extremities Exam Extremities Exam: Normal Inspection - Additional Findings Additional findings: CXR REPORT NOTED AND DISCUSSED WITH DR LACY THE PATIENT WAS SWITCHED TO ORAL DS BACTRIM Assessment and Plan - Assessment and Plan (Free Text) Assessment: FLUID OVERLOAD FLASH PULMONARY EDEMA KLEBSIELLA BACTEREMIA AND POSSIBLY PNEUMONIA Plan: THE PATIENT WILL BE DISCHARGED TODAY ON DS BACTRIM OTHER MEDICATIONS PER DISCHARGE RECONCILIATION
[2018-03-22 13:00] LABS: HEPATITIS B SURFACE AG Negative (NEGATIVE)
[2018-03-22 13:06] LABS: HEPATITIS A IGM NEGATIVE (NEGATIVE); HEPATITIS B CORE AB NEGATIVE (NEGATIVE)
[2018-03-22 13:18] LABS: HEPATITIS C ANTIBODY NEGATIVE (NEGATIVE)
--- NOTE | 2018-03-22 14:47 | CARD ---
APPROVED REPORT Date of service: 03/22/2018 EXAM: Two-dimensional and M-mode echocardiogram with Doppler and color Doppler. Other Information Quality : GoodRhythm : NSR INDICATION Congestive Heart Failure 2D DIMENSIONS IVSd0.82 (0.7-1.1cm)LVDd5.01 (3.9-5.9cm) LVOT Diameter1.76 (1.8-2.4cm)PWd0.96 (0.7-1.1cm) IVSs1.07 (0.8-1.2cm)LVDs3.15 (2.5-4.0cm) FS (%) 37.1 %PWs1.34 (0.8-1.2cm) M-Mode DIMENSIONS Left Atrium (MM)4.20 (2.5-4.0cm)IVSd0.65 (0.7-1.1cm) Aortic Root2.34 (2.2-3.7cm)LVDd4.66 (4.0-5.6cm) Aortic Cusp Exc.1.72 (1.5-2.0cm)PWd0.93 (0.7-1.1cm) IVSs1.19 cmFS (%) 33 % LVDs3.11 (2.0-3.8cm)PWs1.24 cm Aortic Valve AoV Peak Bajbuyqz906.4cm/sAoV VTI23.3cmAO Peak GR.8mmHg LVOT Peak Zvvmrbhn348.6cm/sLVOT VTI18.47cmAO Mean GR.4mmHg Mitral Valve MV E Fmqcusbz586.7cm/sMV DECEL [id number] A Czysxllx99.1cm/s MV WWH25lvJ/A ratio1.7MVA (PHT)4.41cm2 TDI Lateral E' Peak V21.10cm/sMedial E' Peak V14.26cm/sE/Lateral E'4.8 E/Medial E'7.1 Pulmonary Valve PV Peak Lrvewvvu912.2cm/s LEFT VENTRICLE The left ventricle is normal size. There is normal left ventricular wall thickness. The left ventricular systolic function is normal. The estimated ejection fraction is 55-60% No regional wall motion abnormalities noted.. The left ventricular diastolic function is normal. No left ventricle thrombus noted on this study. There is no ventricular septal defect visualized. There is no mass noted in the left ventricle. RIGHT VENTRICLE The right ventricle is normal size. There is normal right ventricular wall thickness. The right ventricular systolic function is normal. ATRIA The left atrium size is mildly dilated The right atrium size is normal. The interatrial septum is intact with no evidence for an atrial septal defect. AORTIC VALVE The aortic valve is normal in structure. No aortic regurgitation is present. There is no aortic valvular stenosis. MITRAL VALVE The mitral valve is normal in structure. There is no mitral valve stenosis. There is trivial mitral valve regurgitation noted. TRICUSPID VALVE The tricuspid valve is normal in structure. There is no tricuspid valve regurgitation noted. PULMONIC VALVE The pulmonary valve is normal in structure. There is no pulmonic valvular regurgitation. GREAT VESSELS The aortic root is normal in size. The ascending aorta is normal in size. The pulmonary artery is normal. The IVC is normal in size and collapses >50% with inspiration. PERICARDIAL EFFUSION There is no pericardial effusion. <Conclusion> Dilated left atrium Otherwise essentially normal transthoracic echocardiogram. The estimated ejection fraction is 55-60%
--- NOTE | 2018-03-22 15:50 | PN ---
Copied To: Monet Gallego MD Attending MD: Monet Gallego MD DATE: 03/22/2018 ENDO FOLLOWUP NOTE LOCATION: In room 407. SUBJECTIVE: This is a 27-year-old female with recent uncontrolled type 1 insulin-dependent diabetes, presenting here with diabetic ketoacidosis and dehydration and has now improved clinically and metabolically as noted thereof. She received vigorous IV hydration with normal saline infusion as given and also intensive insulin therapy with an insulin drip infusion as given in the ICU prior to this transfer to telemetry. Her glycemic levels are fluctuating, but much improved overnight with the glucose levels ranging from 146 to 148 mg/dL. LABORATORY DATA: Her latest chemistries today showed a BUN of 14, sodium 139, potassium 3.6, chloride 104, CO2 of 29, glucose 137, and creatinine 0.6. PLAN OF MANAGEMENT: So at this time, we will continue the same basal and bolus insulin regimen to allow for dose equilibration and keep her on the Humalog given as a triple dosing of Humalog 4 units before breakfast, 6 units before lunch and 8 units before dinner as ordered. We will also continue the same basal insulin given as Levemir at 18 units subcu at bedtime daily as given. We will titrate incrementally as indicated to optimize metabolic control. We will follow and advise accordingly. The patient has opted to resume her [employer]tr[employer] insulin pump usage upon discharge from the hospital as noted. Her A1c levels have been always over 10% and this has been explained lengthily with the patient at bedside regarding the imperative need for tighter metabolic control and to aim for values below 7%, especially that she is a type 1 diabetic to forestall and delay the microvascular diabetic complications of retinopathy, polyneuropathy and nephropathy and also the potential macrovascular complications as mentioned. We will obtain serial chemistries and supplement accordingly as needed. We will follow. Monet Gallego MD
== END 2018-03-22 12:07 | disposition home or self-care (01) | DRG 901 ==
LOC: H.ER 00:42 → H.ERHOLD 02:21 → H.ICU/CCU 10:49 → H.TEL 03-18 22:13
PROVIDERS: ADMIT Internal Medicine Pulmonary Disease; ATTEND Internal Medicine Pulmonary Disease
DX: A41.59 Other Gram-negative sepsis (principal); E10.10 Type 1 diabetes mellitus with ketoacidosis without coma; E87.6 Hypokalemia; E87.70 Fluid overload, unspecified; D62 Acute posthemorrhagic anemia; E86.0 Dehydration; Z72.0 Tobacco use; R10.10 Upper abdominal pain, unspecified; N20.0 Calculus of kidney; N93.8 Other specified abnormal uterine and vaginal bleeding; F41.9 Anxiety disorder, unspecified; R51 Headache; R94.5 Abnormal results of liver function studies

== ENCOUNTER 2018-05-12 20:29 | Inpatient (IN) | payer OTHER ==
[2018-05-12 20:29] VITALS: BMI 23.9
[2018-05-12 20:39] VITALS: TEMP 98.4; O2SAT 100
--- NOTE | 2018-05-12 21:53 | ED PDOC ---
Hyperglycemia/Hypoglycemia Time Seen by Provider: 05/12/18 20:46 Chief Complaint (Nursing): High Blood Sugar Chief Complaint (Provider): Elevated blood sugar, generalized weakness History Per: Patient History/Exam Limitations: no limitations Onset/Duration Of Symptoms: Days (1) Current Symptoms Are (Timing): Still Present : The patient does not have any of the infectious symptoms listed except for those marked. Additional History Per: Patient Additional Complaint(s): 27yo female, history of type 1 diabetes, comes to ER reporting elevated blood sugar and generalized weakness x 1 day. Patient states she is compliant with her medication and that her diabetes is well controlled but states she was working late last night and delayed her dose of insulin. Otherwise, denies any fever, chills, chest pain, shortness of breath, abdominal pain, vomiting or diarrhea, urinary symptoms. No other complaints. PMD: Used to follow up with Dr. Gallego, no PMD currently Past Medical History Reviewed: Historical Data, Nursing Documentation, Vital Signs Vital Signs: Last Vital Signs Temp 98.4 F 05/12/18 20:36 Pulse 97 H 05/12/18 20:36 Resp 18 05/12/18 20:36 BP 130/80 05/12/18 20:36 Pulse Ox 100 05/12/18 20:36 - Medical History PMH: Diabetes (type 1) Denies: Anxiety, Bipolar Disorder, Bronchitis, Depression, HIV, Paranoia, Post Traumatic Stress Disorder, Chronic Kidney Disease, Schizophrenia - Surgical History Surgical History: (x2) - Family History Family History: States: Unknown Family Hx, Hypertension - Immunization History Hx Tetanus Toxoid Vaccination: No Hx Influenza Vaccination: No Hx Pneumococcal Vaccination: No - Home Medications Home Medications: Ambulatory Orders Medication Instructions Recorded Insulin Lispro [humALOG] 0 unit SQ 5XD 05/12/18 - Allergies Allergies/Adverse Reactions: Allergies Allergy/AdvReac Type Severity Reaction Status Date / Time No Known Allergies Allergy Verified 03/17/18 01:30 Review of Systems ROS Statement: Except As Marked, All Systems Reviewed And Found Negative Constitutional: Negative for: Fever, Chills Cardiovascular: Negative for: Chest Pain Respiratory: Negative for: Shortness of Breath Gastrointestinal: Negative for: Vomiting, Diarrhea Genitourinary Female: Negative for: Dysuria, Frequency, Hematuria Physical Exam - Reviewed Nursing Documentation Reviewed: Yes Vital Signs Reviewed: Yes - Physical Exam Appears: Positive for: Non-toxic, No Acute Distress Head Exam: Positive for: ATRAUMATIC, NORMAL INSPECTION, NORMOCEPHALIC Skin: Positive for: Normal Color, Warm, DRY Eye Exam: Positive for: EOMI, Normal appearance, PERRL Neck: Positive for: Normal, Painless ROM Cardiovascular/Chest: Positive for: Regular Rate, Rhythm Respiratory: Positive for: CNT, Normal Breath Sounds Gastrointestinal/Abdominal: Positive for: Normal Exam, Soft. Negative for: Tenderness Back: Positive for: Normal Inspection Extremity: Positive for: Normal ROM. Negative for: Pedal Edema Neurologic/Psych: Positive for: Alert, Oriented. Negative for: Motor/Sensory Deficits - Laboratory Results Result Diagrams: 05/12/18 21:45 05/12/18 21:45 - ECG O2 Sat by Pulse Oximetry: 100 (RA) Pulse Ox Interpretation: Normal - Critical Care Total Time (In Min): 60 Medical Decision Making Medical Decision Making: Impression: Hyperglycemia in type 1 diabetic Differential: Uncontrolled diabetes due to occasional non-compliance; r/o DKA Plan: * Labs * EKG * IV Fluids * ABG * Urinalysis 2210 ABG reviewed, patient with metabolic acidosis. 2229 -- IV Dextrose -- IV Insulin 9 units -- IV Fluids 2235 ABG, CBC and chemistry reviewed, patient with anion gap. Patient in metabolic acidosis. Patient with low bicarb and is hyperglycemic. Patient's lab results are consistent with DKA. Case discussed with Dr. Vasquez and patient to be admitted under his service. [address] Pollock for ICU. Scribe Attestation: Documented by Michelle Smith, acting as a scribe for Mary Marrufo MD. Provider Scribe Attestation: All medical record entries made by the Scribe were at my direction and personally dictated by me. I have reviewed the chart and agree that the record accurately reflects my personal performance of the history, physical exam, medical decision making, and the department course for this patient. I have also personally directed, reviewed, and agree with the discharge instructions and disposition. Disposition - Clinical Impression Clinical Impression: DKA (diabetic ketoacidoses), Hyperglycemia due to type 1 diabetes mellitus - Patient ED Disposition Is Patient to be Admitted: Yes Discussed With : Jean-Pierre Vasquez Doctor Will See Patient In The: Hospital Counseled Patient/Family Regarding: Studies Performed, Diagnosis - Disposition Disposition Time: 22:30 Condition: CRITICAL - Pt Status Changed To: Hospital Disposition Of: Inpatient - Admit Certification Admit to Inpatient:: After my assessment, the patient will require hospitalization for at least two midnights. This is because of the severity of symptoms shown, intensity of services needed, and/or the medical risk in this patient being treated as an outpatient. - POA Present On Arrival: Poor Glycemic Control
[2018-05-12 22:08] LABS: ABG ALLEN TEST YES; ARTERIAL BLOOD GAS HCO3 11.5 mmol/L (21-28); ARTERIAL BLOOD GAS O2 SAT 99.8 % (95-98); ARTERIAL BLOOD GAS PCO2 17 mm/Hg (35-45); ARTERIAL BLOOD GAS PH 7.25 (7.35-7.45); ARTERIAL BLOOD GAS PO2 122 mm/Hg (80-100)
[2018-05-12] MEDS: Sodium Chloride 0.9% 1,000 ML IV SCH ×2 (22:08→22:36)
[2018-05-12 22:09] LABS: BASO # 0.1 K/uL (0.0-0.2); BASO % 1.3 % (0.0-2.0); EOS # 0.2 K/uL (0.0-0.7); EOS % 3.9 % (0.0-4.0); HEMOGLOBIN 13.1 g/dL (12.0-16.0); LYMPH # 1.4 K/uL (1.0-4.3); LYMPH % 24.9 % (20.0-40.0); MEAN CELL VOLUME 90.2 fl (81.0-99.0); MEAN CORPUSCULAR HEMOGLOBIN 28.9 pg (27.0-31.0); MEAN CORPUSCULAR HGB CONC 32.1 g/dL (33.0-37.0); MEAN PLATELET VOLUME 7.6 fl (7.2-11.7); MONO # 0.3 K/uL (0.0-0.8); MONO % 5.4 % (0.0-10.0); NEUT # 3.7 K/uL (1.8-7.0); NEUT % 64.5 % (50.0-75.0); RBC 4.54 Mil/uL (3.80-5.20); RED CELL DISTRIBUTION WIDTH 14.8 % (11.5-14.5); WHITE BLOOD COUNT 5.7 K/uL (4.8-10.8)
[2018-05-12 22:12] LABS: SQUAMOUS EPITHIAL 1 /hpf (0-5); URINE BACTERIA RARE (<OCC); URINE BILIRUBIN NEGATIVE (NEGATIVE); URINE BLOOD LARGE (NEGATIVE); URINE CLARITY CLEAR (Clear); URINE COLOR STRAW (YELLOW); URINE GLUCOSE (UA) >=500 mg/dL (Normal); URINE LEUKOCYTE ESTERASE NEG Leu/uL (Negative); URINE PROTEIN NEGATIVE (NEGATIVE); URINE UROBILINOGEN 0.2-1.0 mg/dL (0.2-1.0)
[2018-05-12 22:13] LABS: ALB/GLOB RATIO 1.2 (1.0-2.1); ALBUMIN 4.3 g/dL (3.5-5.0); ALT/SGPT 28 U/L (9-52); AST/SGOT 24 U/L (14-36); BLOOD UREA NITROGEN 11 mg/dl (7-17); CALCIUM 9.5 mg/dL (8.4-10.2); GFR NON-AFRICAN AMERICAN > 60
[2018-05-12] MEDS ORDERED: Insulin Regular 100 units/ml IV STA (22:24)
[2018-05-12] MEDS ORDERED: Dextrose 50% SYRINGE Inj (50 ml) IV PRN (22:25)
[2018-05-12] MEDS ORDERED: Glucagon Recombinant 1 mg Inj IM PRN (22:25)
[2018-05-12] MEDS ORDERED: Potassium Chl 20 mEq in NS 1,000 ML IV SCH (22:30)
[2018-05-12] MEDS ORDERED: Insulin Regular 100 units/ml ONE (22:32)
[2018-05-13] MEDS ORDERED: Potassium Chl 20 mEq in NS 1,000 ML IV SCH (00:15)
--- NOTE | 2018-05-13 00:27 | CP.PCM.CON ---
History of Present Illness - History of Present Illness History of Present Illness: 27 F with h/o type 1 dm, multiple admissions with DKA, who in the past has been on insulin pump but ran out of supplies hence using humlog insulin randomly, patient in the past has been on long acting insulin but currently not using. She missed insulin since last night and then felt very weak, nauseated this morning. C/o polyuria, poly dipsia, and weight loss especially when has not been compliant with insulin. Has been also feeling some sick for last 1 wk, but denies fever or chills. PMH as above PSH C section Meds humlog as needed Allergies NKDA Family history not contributory Social denies smoking, alcohol or illicit drug use. Review of Systems - Review of Systems All systems: reviewed and no additional remarkable complaints except (HPI) Past Patient History - Infectious Disease Hx of Infectious Diseases: None - Tetanus Immunizations Tetanus Immunization: Unknown - Past Medical History & Family History Past Medical History?: Yes - Past Social History Smoking Status: Never Smoked Alcohol: None Drugs: Denies Home Situation {Lives}: With Family Domestic Violence: Negative - CARDIAC Hx Cardiac Disorders: No - PULMONARY Hx Bronchitis: No - NEUROLOGICAL Hx Neurological Disorder: No - HEENT Hx HEENT Problems: No - RENAL Hx Chronic Kidney Disease: No - ENDOCRINE/METABOLIC Hx Endocrine Disorders: Yes (type 1) - HEMATOLOGICAL/ONCOLOGICAL Hx Human Immunodeficiency Virus (HIV): No - INTEGUMENTARY Hx Dermatological Problems: No - MUSCULOSKELETAL/RHEUMATOLOGICAL Hx Musculoskeletal Disorders: No Hx Falls: No - GASTROINTESTINAL Hx Gastrointestinal Disorders: No - GENITOURINARY/GYNECOLOGICAL Hx Genitourinary Disorders: No - PSYCHIATRIC Hx Anxiety: No Hx Bipolar Disorder: No Hx Depression: No Hx Paranoia: No Hx Post Traumatic Stress Disorder: No Hx Schizophrenia: No - SURGICAL HISTORY Hx Surgeries: Yes Hx Section: Yes (x2) Other/Comment: rt thigh abcess I&D (2006) / insulin pump c secetion - ANESTHESIA Hx Anesthesia: Yes Hx Anesthesia Reactions: No Hx Malignant Hyperthermia: No Meds Allergies/Adverse Reactions: Allergies Allergy/AdvReac Type Severity Reaction Status Date / Time No Known Allergies Allergy Verified 03/17/18 01:30 - Medications Medications: Current Medications Dextrose (Dextrose 50% Inj) 0 ml IV STAT PRN; Protocol PRN Reason: Hypoglycemia Protocol Dextrose (Glutose 15) 0 gm PO ONCE PRN; Protocol PRN Reason: Hypoglycemia Protocol Glucagon (Glucagen Diagnostic Kit) 0 mg IM STAT PRN; Protocol PRN Reason: Hypoglycemia Protocol Heparin Sodium (Porcine) (Heparin) 5,000 units SC Q12 LANETTE; Protocol Sodium Chloride (Sodium Chloride 0.9%) 1,000 mls @ 999 mls/hr IV .Q1H1M LAN[place]TE Stop: 05/13/18 20:59 Last Admin: 05/12/18 22:36 Dose: 999 mls/hr Insulin Human Regular 100 (units/ Sodium Chloride) 101 mls @ 6.06 mls/hr IV .[id number] LANETTE; Protocol Last Admin: 05/12/18 23:16 Dose: 6.06 mls/hr Potassium Chloride/Sodium Chloride (Potassium Chl 20 Meq In Ns) 1,000 mls @ 200 mls/hr IV .Q5H LANETTE Physical Exam - Additional Findings Additional findings: * HEENT [place], dry mucous membranes * Neck Supple * Chest clear * CVS Regular, borderline tachycardia * PA soft, nt bs present * Ext no edema * skin reduced turgor, on dryer side * VINYL DIPPER awake oriented x3 no fnd Results - Vital Signs Recent Vital Signs: Last Vital Signs Temp 98.4 F 05/12/18 20:36 Pulse 104 H 05/12/18 23:20 Resp 18 05/12/18 23:20 BP 126/78 05/12/18 23:20 Pulse Ox 100 05/12/18 23:20 - Labs Result Diagrams: 05/12/18 21:45 05/12/18 21:45 Labs: Laboratory Results - last 24 hr 05/12/18 05/12/18 05/12/18 20:39 21:45 21:45 WBC 5.7 RBC 4.54 Hgb 13.1 D Hct 40.9 MCV 90.2 D MCH 28.9 MCHC 32.1 L RDW 14.8 H Plt Count 357 D MPV 7.6 Neut % (Auto) 64.5 Lymph % (Auto) 24.9 Glynn % (Auto) 5.4 Eos % (Auto) 3.9 Baso % (Auto) 1.3 Neut # (Auto) 3.7 Lymph # (Auto) 1.4 Glynn # (Auto) 0.3 Eos # (Auto) 0.2 Baso # (Auto) 0.1 pCO2 pO2 HCO3 ABG pH ABG Total CO2 ABG O2 Saturation ABG Base Excess Rivera Test ABG Potassium A-a O2 Difference Glucose Lactate FiO2 Blood Gas Comments Crit Value Called To Crit Value Called By Crit Value Read Back Blood Gas Notified Time Sodium 136 Potassium 4.9 Chloride 102 Carbon Dioxide 9 L* D Anion Gap 30 H BUN 11 Creatinine 0.7 Est GFR ( Amer) > 60 Est GFR (Non-Af Amer) > 60 POC Glucose (mg/dL) 424 H* Random Glucose 539 H* D Calcium 9.5 Total Bilirubin 0.5 AST 24 ALT 28 Alkaline Phosphatase 141 H D Total Protein 8.0 Albumin 4.3 Globulin 3.6 Albumin/Globulin Ratio 1.2 Arterial Blood Potassium Urine Color Urine Clarity Urine pH Ur Specific [place] Urine Protein Urine Glucose (UA) Urine Ketones Urine Blood Urine Nitrate Urine Bilirubin Urine Urobilinogen Ur Leukocyte Esterase Urine RBC (Auto) Ur Squamous Epith Cells Urine Bacteria 05/12/18 05/12/18 05/12/18 21:47 22:01 23:34 WBC RBC Hgb Hct MCV MCH MCHC RDW Plt Count MPV Neut % (Auto) Lymph % (Auto) [place] % (Auto) Eos % (Auto) Baso % (Auto) Neut # (Auto) Lymph # (Auto) [place] # (Auto) Eos # (Auto) Baso # (Auto) pCO2 17 L* pO2 122 H HCO3 11.5 L ABG pH 7.25 L ABG Total CO2 8.0 L ABG O2 Saturation 99.8 H ABG Base Excess -17.3 L Rivera Test Yes ABG Potassium 4.4 A-a O2 Difference 6.0 Glucose 548 H* D Lactate 1.1 FiO2 21.0 Blood Gas Comments [id number] Crit Value Called To jer Pro Crit Value Called By 22 Crit Value Read Back Y Blood Gas Notified Time 2207 Sodium 133.0 Potassium Chloride 99.0 Carbon Dioxide Anion Gap BUN Creatinine Est GFR ( Amer) Est GFR (Non-Af Amer) POC Glucose (mg/dL) 290 H Random Glucose Calcium Total Bilirubin AST ALT Alkaline Phosphatase Total Protein Albumin Globulin Albumin/Globulin Ratio Arterial Blood Potassium 4.4 Urine Color Straw Urine Clarity Clear Urine pH 6.0 Ur Specific [place] 1.025 Urine Protein Negative Urine Glucose (UA) >=500 Urine Ketones 80 Urine Blood Large Urine Nitrate Negative Urine Bilirubin Negative Urine Urobilinogen 0.2-1.0 Ur Leukocyte Esterase Neg Urine RBC (Auto) 93 H Ur Squamous Epith Cells 1 Urine Bacteria Rare Assessment & Plan - Assessment and Plan (Free Text) Assessment: Assessment * Early DKA due to non compliance. Plan: Plan * Insulin drip * IVF * Counselled about compliance * Monitor and replace electrolytes * GI/DVT prophylaxis * See orders for detail.
[2018-05-13] MEDS ORDERED: Potassium Ch 20mEq in D5-1/2NS 1,000 ML IV SCH (01:45)
[2018-05-13 05:43] VITALS: BP 121/89; PULSE 89; RESP 12
== END 2018-05-13 03:05 | disposition left against medical advice (07) | DRG 295 ==
LOC: H.ER 20:29 → H.ERHOLD 22:34 → H.ICU/CCU 05-13
PROVIDERS: ADMIT Internal Medicine Pulmonary Disease; ATTEND Internal Medicine Pulmonary Disease
DX: E10.10 Type 1 diabetes mellitus with ketoacidosis without coma (principal); Z91.14 Patient's other noncompliance with medication regimen; Z91.19 Patient's noncompliance with other medical treatment and regimen; Z96.41 Presence of insulin pump (external) (internal); Z79.4 Long term (current) use of insulin

== ENCOUNTER 2018-05-13 21:07 | Inpatient (IN) | payer OTHER ==
[2018-05-13 21:07] VITALS: BMI 23.9
[2018-05-13] MEDS ORDERED: Insulin Regular 100 units/ml SC STA (21:55)
[2018-05-13] MEDS ORDERED: Sodium Chloride 0.9% 2,000 ML IV STA (21:55)
[2018-05-13 22:29] LABS: HEMOGLOBIN 12.7 g/dL (12.0-16.0); MEAN CELL VOLUME 90.4 fl (81.0-99.0); RBC 4.38 Mil/uL (3.80-5.20); RED CELL DISTRIBUTION WIDTH 15.3 % (11.5-14.5); WHITE BLOOD COUNT 5.6 K/uL (4.8-10.8)
[2018-05-13 22:35] LABS: VENOUS BLOOD GAS BASE EXCESS -18.3 mmol/L (0.0-2.0); VENOUS BLOOD GAS PCO2 23 mmHg (40-60); VENOUS BLOOD GAS PO2 24 mm/Hg (30-55); VENOUS BLOOD PH 7.17 (7.32-7.43)
[2018-05-13 22:37] LABS: SQUAMOUS EPITHIAL 1 /hpf (0-5); URINE BILIRUBIN NEGATIVE (NEGATIVE); URINE BLOOD LARGE (NEGATIVE); URINE CLARITY CLOUDY (Clear); URINE COLOR RED (YELLOW); URINE GLUCOSE (UA) >=500 mg/dL (Normal); URINE LEUKOCYTE ESTERASE NEG Leu/uL (Negative); URINE PROTEIN 100 mg/dL (NEGATIVE); URINE UROBILINOGEN 0.2-1.0 mg/dL (0.2-1.0)
[2018-05-13 22:58] LABS: BLOOD UREA NITROGEN 8 mg/dl (7-17); CALCIUM 9.1 mg/dL (8.4-10.2); GFR NON-AFRICAN AMERICAN > 60
--- NOTE | 2018-05-13 23:11 | ED PDOC ---
HPI: General Adult Time Seen by Provider: 05/13/18 21:42 Chief Complaint (Nursing): GI Problem History Per: Patient History/Exam Limitations: no limitations Additional Complaint(s): Hx of IDDM presenting with lethargy, polyuria, polydypsia. Patient was admitted yesterday to ICU for DKA and AMA's for family issues, returns today for similar symptoms but states she's no longer having nausea or vomiting, but states she feels "sick" with increased lethargy. Denies abdominal pain, fevers. States she's only been able to drink water today. Past Medical History Vital Signs: Last Vital Signs Temp 98.6 F 05/13/18 21:11 Pulse 95 H 05/13/18 21:11 Resp 18 05/13/18 21:11 BP 121/80 05/13/18 21:11 Pulse Ox 100 05/13/18 21:11 - Medical History PMH: Diabetes (type 1) Denies: Anxiety, Bipolar Disorder, Bronchitis, Depression, HIV, Paranoia, Post Traumatic Stress Disorder, Chronic Kidney Disease, Schizophrenia - Surgical History Surgical History: (x2) - Family History Family History: States: Unknown Family Hx, Hypertension - Immunization History Hx Tetanus Toxoid Vaccination: No Hx Influenza Vaccination: No Hx Pneumococcal Vaccination: No - Home Medications Home Medications: Ambulatory Orders Medication Instructions Recorded Insulin Lispro [humALOG] 0 unit SQ 5XD 05/12/18 - Allergies Allergies/Adverse Reactions: Allergies Allergy/AdvReac Type Severity Reaction Status Date / Time No Known Allergies Allergy Verified 05/13/18 21:11 Review of Systems ROS Statement: Except As Marked, All Systems Reviewed And Found Negative Neurological: Positive for: Dizziness Physical Exam - Reviewed Nursing Documentation Reviewed: Yes Vital Signs Reviewed: Yes - Physical Exam Appears: Positive for: Well, Non-toxic, No Acute Distress Head Exam: Positive for: ATRAUMATIC, NORMAL INSPECTION, NORMOCEPHALIC Skin: Positive for: Normal Color, Warm, DRY Eye Exam: Positive for: EOMI, Normal appearance, PERRL ENT: Positive for: Normal ENT Inspection Neck: Positive for: Normal, Painless ROM Cardiovascular/Chest: Positive for: Regular Rate, Rhythm Respiratory: Positive for: CNT, Normal Breath Sounds Gastrointestinal/Abdominal: Positive for: Normal Exam, Soft Back: Positive for: Normal Inspection Extremity: Positive for: Normal ROM Neurologic/Psych: Positive for: Alert, anesthesia assistant II-XII, Oriented. Negative for: Motor/Sensory Deficits - Laboratory Results Result Diagrams: 05/13/18 22:26 05/13/18 22:26 - ECG O2 Sat by Pulse Oximetry: 100 Pulse Ox Interpretation: Normal Medical Decision Making Medical Decision Making: Patient returning for continued symptoms of lethargy after being admitted for DKA --Will get labs, VBG, Urine --Patient likely in DKA still --Will hydrate, give fluids, insulin, and re-eval 0100 --Patient has ketones, low pH, low CO2, elevated gap, indicative of continued DKA --Case discussed with Dr. Pollock for ICU admission Disposition - Clinical Impression Clinical Impression: DKA (diabetic ketoacidoses) - Disposition Disposition Time: 01:00 Condition: GUARDED
[2018-05-14] MEDS ORDERED: Dextrose 50% SYRINGE Inj (50 ml) IV PRN ×2 (02:56→12:35)
[2018-05-14] MEDS ORDERED: Glucagon Recombinant 1 mg Inj IM PRN ×2 (02:56→12:35)
--- NOTE | 2018-05-14 03:08 | CP.PCM.CON ---
History of Present Illness - History of Present Illness History of Present Illness: 27 F with h/o type 1 dm, multiple admissions with DKA, who in the past has been on insulin pump but ran out of supplies hence using humlog insulin randomly, patient in the past has been on long acting insulin but currently not using. She was admitted last night with DKA, but signed out against medical advice when felt slight better as the treatment was started. As per her she had to take care of her children. Patient at home found herself very weak, gave her self insulin the glucose went down, then started to rise, when she decided to come to hospital. In Er her glucose was elevated , low ph, high ag, both ketones and lactic acid +, the glucose acutely dropped with insulin. Patient denies any gi complains, or urinary complains, blood in the urine noticed but patient is in her period. PMH as above PSH C section Meds humlog as needed Allergies NKDA Family history not contributory Social denies smoking, alcohol or illicit drug use. Review of Systems - Review of Systems All systems: reviewed and no additional remarkable complaints except (HPI) Past Patient History - Infectious Disease Hx of Infectious Diseases: None - Tetanus Immunizations Tetanus Immunization: Unknown - Past Medical History & Family History Past Medical History?: Yes - Past Social History Smoking Status: Light Smoker < 10 Cigarettes Daily Alcohol: None Drugs: Denies Home Situation {Lives}: With Family - CARDIAC Hx Cardiac Disorders: No - PULMONARY Hx Bronchitis: No - NEUROLOGICAL Hx Neurological Disorder: No - HEENT Hx HEENT Problems: No - RENAL Hx Chronic Kidney Disease: No - ENDOCRINE/METABOLIC Hx Endocrine Disorders: Yes - HEMATOLOGICAL/ONCOLOGICAL Hx Human Immunodeficiency Virus (HIV): No - INTEGUMENTARY Hx Dermatological Problems: No - MUSCULOSKELETAL/RHEUMATOLOGICAL Hx Musculoskeletal Disorders: No Hx Falls: No - GASTROINTESTINAL Hx Gastrointestinal Disorders: No - GENITOURINARY/GYNECOLOGICAL Hx Genitourinary Disorders: No - PSYCHIATRIC Hx Anxiety: No Hx Bipolar Disorder: No Hx Depression: No Hx Paranoia: No Hx Post Traumatic Stress Disorder: No Hx Schizophrenia: No - SURGICAL HISTORY Hx Surgeries: Yes Hx Section: Yes (x2) Other/Comment: rt thigh abcess I&D (2006) / insulin pump c secetion - ANESTHESIA Hx Anesthesia: Yes Hx Anesthesia Reactions: No Hx Malignant Hyperthermia: No Meds Allergies/Adverse Reactions: Allergies Allergy/AdvReac Type Severity Reaction Status Date / Time No Known Allergies Allergy Verified 05/13/18 21:11 - Medications Medications: Current Medications Dextrose (Dextrose 50% Inj) 0 ml IV STAT PRN; Protocol PRN Reason: Hypoglycemia Protocol Dextrose (Glutose 15) 0 gm PO ONCE PRN; Protocol PRN Reason: Hypoglycemia Protocol Glucagon (Glucagen Diagnostic Kit) 0 mg IM STAT PRN; Protocol PRN Reason: Hypoglycemia Protocol Potassium Chloride 20 meq/ (Dextrose/Sodium Chloride) 510 mls @ 250 mls/hr IV .Q2H3M [facility] Stop: 05/15/18 02:56 Insulin Human Regular 100 (units/ Sodium Chloride) 101 mls @ 2.02 mls/hr IV .Q24H LANETTE; Protocol Physical Exam - Additional Findings Additional findings: * HEENT [place] * Neck Supple * Chest Clear * CVS Regular, no murmur or rub * PA soft, nt bs present * Ext peripheral pulses present * Skin dry reduced turgor. 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 x3 no fnd Results - Vital Signs Recent Vital Signs: Last Vital Signs Temp 99.3 F 05/14/18 02:50 Pulse 116 H 05/14/18 02:50 Resp 18 05/14/18 02:50 BP 119/67 05/14/18 02:50 Pulse Ox 100 05/14/18 02:35 - Labs Result Diagrams: 05/13/18 22:26 05/13/18 22:26 Labs: Laboratory Results - last 24 hr 05/13/18 05/13/18 05/13/18 21:15 22:26 22:26 WBC 5.6 RBC 4.38 Hgb 12.7 Hct 39.6 MCV 90.4 MCH 29.0 MCHC 32.0 L RDW 15.3 H Plt Count 322 pO2 VBG pH VBG pCO2 VBG HCO3 VBG Total CO2 VBG O2 Sat (Calc) VBG Base Excess VBG Potassium Glucose Lactate FiO2 Blood Gas Comments Crit Value Called To Crit Value Called By Crit Value Read Back Blood Gas Notified Time Sodium 140 Potassium 4.5 Chloride 114 H Carbon Dioxide 7 L* D Anion Gap 24 H BUN 8 Creatinine 0.6 L Est GFR ( Amer) > 60 Est GFR (Non-Af Amer) > 60 POC Glucose (mg/dL) 252 H Random Glucose 136 H Calcium 9.1 Venous Blood Potassium Urine Color Urine Clarity Urine pH Ur Specific [place] Urine Protein Urine Glucose (UA) Urine Ketones Urine Blood Urine Nitrate Urine Bilirubin Urine Urobilinogen Ur Leukocyte Esterase Urine RBC (Auto) Urine Microscopic WBC Ur Squamous Epith Cells 05/13/18 05/13/18 05/13/18 22:26 22:27 23:16 WBC RBC Hgb Hct MCV MCH MCHC RDW Plt Count pO2 24 L VBG pH 7.17 L* VBG pCO2 23 L VBG HCO3 8.7 VBG Total CO2 9.1 L VBG O2 Sat (Calc) 56.5 VBG Base Excess -18.3 L VBG Potassium 4.2 Glucose 145 H Lactate 4.8 H* FiO2 21.0 Blood Gas Comments Lac=4.8 Crit Value Called To aisha Gomez Crit Value Called By 22 Crit Value Read Back Y Blood Gas Notified Time 2235 Sodium 138.0 Potassium Chloride 107.0 Carbon Dioxide Anion Gap BUN Creatinine Est GFR ( Amer) Est GFR (Non-Af Amer) POC Glucose (mg/dL) 44 L Random Glucose Calcium Venous Blood Potassium 4.2 Urine Color Red Urine Clarity Cloudy Urine pH 6.0 Ur Specific [place] 1.021 Urine Protein 100 Urine Glucose (UA) >=500 Urine Ketones 80 Urine Blood Large Urine Nitrate Negative Urine Bilirubin Negative Urine Urobilinogen 0.2-1.0 Ur Leukocyte Esterase Neg Urine RBC (Auto) 4445 H Urine Microscopic WBC 4 Ur Squamous Epith Cells 1 05/13/18 23:18 WBC RBC Hgb Hct MCV MCH MCHC RDW Plt Count pO2 VBG pH VBG pCO2 VBG HCO3 VBG Total CO2 VBG O2 Sat (Calc) VBG Base Excess VBG Potassium Glucose Lactate FiO2 Blood Gas Comments Crit Value Called To Crit Value Called By Crit Value Read Back Blood Gas Notified Time Sodium Potassium Chloride Carbon Dioxide Anion Gap BUN Creatinine Est GFR ( Amer) Est GFR (Non-Af Amer) POC Glucose (mg/dL) 44 L Random Glucose Calcium Venous Blood Potassium Urine Color Urine Clarity Urine pH Ur Specific [place] Urine Protein Urine Glucose (UA) Urine Ketones Urine Blood Urine Nitrate Urine Bilirubin Urine Urobilinogen Ur Leukocyte Esterase Urine RBC (Auto) Urine Microscopic WBC Ur Squamous Epith Cells Assessment & Plan - Assessment and Plan (Free Text) Assessment: * DKA due to non compliance * Hypoglycemia due to rapid correction of glucose with insulin * Lactic acidosis like due to slow metabolism, no clinical signs of shock. Plan: * IVF with glucose and K * Titrate insulin drip with glucose, DKA protocol * GI/DVT prophylaxis * Counselled that she needs both long and short acting insulins to manage type 1 dm * See orders for detail.
[2018-05-14] MEDS: Potassium Ch 20mEq in D5-1/2NS 1,000 ML IV SCH ×4 (04:00→17:22)
--- NOTE | 2018-05-14 07:26 | CP.PCM.HP ---
History of Present Illness - History of Present Illness History of Present Illness: CC: Weakness History of Present Illness: A 27 F with h/o type 1 dm, multiple admissions with DKA, who in the past has been on insulin pump but ran out of supplies hence using humlog insulin randomly, patient in the past has been on long acting insulin but currently not using. She was admitted last night with DKA, but signed out against medical advice when felt slight better as the treatment was started. As per her she had to take care of her children. Patient at home found herself very weak, gave her self insulin the glucose went down, then started to rise, when she decided to come to hospital. In Er her glucose was elevated , low ph, high ag, both ketones and lactic acid +, the glucose acutely dropped with insulin. Patient denies any gi complains, or urinary complains, blood in the urine noticed but patient is in her period. Present on Admission - Present on Admission Any Indicators Present on Admission: No Review of Systems - Review of Systems All systems: reviewed and no additional remarkable complaints except Review of Systems: as per HPI Past Patient History - Infectious Disease Hx of Infectious Diseases: None - Tetanus Immunizations Tetanus Immunization: Unknown - Past Medical History & Family History Past Medical History?: Yes Past Family History: Reviewed and not pertinent - Past Social History Smoking Status: Light Smoker < 10 Cigarettes Daily - CARDIAC Hx Cardiac Disorders: No - PULMONARY Hx Bronchitis: No - NEUROLOGICAL Hx Neurological Disorder: No - HEENT Hx HEENT Problems: No - RENAL Hx Chronic Kidney Disease: No - ENDOCRINE/METABOLIC Hx Endocrine Disorders: Yes - HEMATOLOGICAL/ONCOLOGICAL Hx Human Immunodeficiency Virus (HIV): No - INTEGUMENTARY Hx Dermatological Problems: No - MUSCULOSKELETAL/RHEUMATOLOGICAL Hx Musculoskeletal Disorders: No Hx Falls: No - GASTROINTESTINAL Hx Gastrointestinal Disorders: No - GENITOURINARY/GYNECOLOGICAL Hx Genitourinary Disorders: No - PSYCHIATRIC Hx Anxiety: No Hx Bipolar Disorder: No Hx Depression: No Hx Paranoia: No Hx Post Traumatic Stress Disorder: No Hx Schizophrenia: No - SURGICAL HISTORY Hx Surgeries: Yes Hx Section: Yes (x2) Other/Comment: rt thigh abcess I&D (2006) / insulin pump c secetion - ANESTHESIA Hx Anesthesia: Yes Hx Anesthesia Reactions: No Hx Malignant Hyperthermia: No Meds Allergies/Adverse Reactions: Allergies Allergy/AdvReac Type Severity Reaction Status Date / Time No Known Allergies Allergy Verified 05/13/18 21:11 Physical Exam - Constitutional Appears: No Acute Distress - Head Exam Head Exam: ATRAUMATIC, NORMAL INSPECTION, NORMOCEPHALIC - Eye Exam Eye Exam: EOMI, Normal appearance, PERRL Pupil Exam: NORMAL ACCOMODATION, PERRL - ENT Exam ENT Exam: Mucous Membranes Moist, Normal Exam - Neck Exam Neck exam: Positive for: Normal Inspection - Respiratory Exam Respiratory Exam: Clear to Auscultation Bilateral, NORMAL BREATHING PATTERN - Cardiovascular Exam Cardiovascular Exam: REGULAR RHYTHM, +S1, +S2 - GI/Abdominal Exam GI & Abdominal Exam: Normal Bowel Sounds, Soft. absent: Tenderness - Extremities Exam Extremities exam: Positive for: normal inspection - Back Exam Back exam: NORMAL INSPECTION - Neurological Exam Neurological exam: Alert, CN II-XII Intact, Normal Gait, Oriented x3, Reflexes Normal - Psychiatric Exam Psychiatric exam: Normal Affect, Normal Mood - Skin Skin Exam: Dry, Intact, Normal Color, Warm Results - Vital Signs Recent Vital Signs: Last Vital Signs Temp 99 F 05/14/18 04:00 Pulse 93 H 05/14/18 04:00 Resp 18 05/14/18 04:00 BP 128/58 L 05/14/18 04:00 Pulse Ox 100 05/14/18 04:00 - Labs Result Diagrams: 05/14/18 11:20 05/15/18 05:30 Labs: Laboratory Results - last 24 hr 05/13/18 05/13/18 05/13/18 21:15 22:26 22:26 WBC 5.6 RBC 4.38 Hgb 12.7 Hct 39.6 MCV 90.4 MCH 29.0 MCHC 32.0 L RDW 15.3 H Plt Count 322 pO2 VBG pH VBG pCO2 VBG HCO3 VBG Total CO2 VBG O2 Sat (Calc) VBG Base Excess VBG Potassium Glucose Lactate FiO2 Blood Gas Comments Crit Value Called To Crit Value Called By Crit Value Read Back Blood Gas Notified Time Sodium 140 Potassium 4.5 Chloride 114 H Carbon Dioxide 7 L* D Anion Gap 24 H BUN 8 Creatinine 0.6 L Est GFR ( Amer) > 60 Est GFR (Non-Af Amer) > 60 POC Glucose (mg/dL) 252 H Random Glucose 136 H Calcium 9.1 Venous Blood Potassium Urine Color Urine Clarity Urine pH Ur Specific [place] Urine Protein Urine Glucose (UA) Urine Ketones Urine Blood Urine Nitrate Urine Bilirubin Urine Urobilinogen Ur Leukocyte Esterase Urine RBC (Auto) Urine Microscopic WBC Ur Squamous Epith Cells 05/13/18 05/13/18 05/13/18 22:26 22:27 23:16 WBC RBC Hgb Hct MCV MCH MCHC RDW Plt Count pO2 24 L VBG pH 7.17 L* VBG pCO2 23 L VBG HCO3 8.7 VBG Total CO2 9.1 L VBG O2 Sat (Calc) 56.5 VBG Base Excess -18.3 L VBG Potassium 4.2 Glucose 145 H Lactate 4.8 H* FiO2 21.0 Blood Gas Comments Lac=4.8 Crit Value Called To aisha Gomez Crit Value Called By 22 Crit Value Read Back Y Blood Gas Notified Time 2234 Sodium 138.0 Potassium Chloride 107.0 Carbon Dioxide Anion Gap BUN Creatinine Est GFR ( Amer) Est GFR (Non-Af Amer) POC Glucose (mg/dL) 44 L Random Glucose Calcium Venous Blood Potassium 4.2 Urine Color Red Urine Clarity Cloudy Urine pH 6.0 Ur Specific [place] 1.021 Urine Protein 100 Urine Glucose (UA) >=500 Urine Ketones 80 Urine Blood Large Urine Nitrate Negative Urine Bilirubin Negative Urine Urobilinogen 0.2-1.0 Ur Leukocyte Esterase Neg Urine RBC (Auto) 4445 H Urine Microscopic WBC 4 Ur Squamous Epith Cells 1 05/13/18 23:18 WBC RBC Hgb Hct MCV MCH MCHC RDW Plt Count pO2 VBG pH VBG pCO2 VBG HCO3 VBG Total CO2 VBG O2 Sat (Calc) VBG Base Excess VBG Potassium Glucose Lactate FiO2 Blood Gas Comments Crit Value Called To Crit Value Called By Crit Value Read Back Blood Gas Notified Time Sodium Potassium Chloride Carbon Dioxide Anion Gap BUN Creatinine Est GFR ( Amer) Est GFR (Non-Af Amer) POC Glucose (mg/dL) 44 L Random Glucose Calcium Venous Blood Potassium Urine Color Urine Clarity Urine pH Ur Specific [place] Urine Protein Urine Glucose (UA) Urine Ketones Urine Blood Urine Nitrate Urine Bilirubin Urine Urobilinogen Ur Leukocyte Esterase Urine RBC (Auto) Urine Microscopic WBC Ur Squamous Epith Cells Assessment & Plan (1) DKA (diabetic ketoacidoses) Status: Acute Priority: High Comment: NPO. Admit to ICU. IVF. Insulin Infusion. BMP q4hrs. VBG. Accu- check Q1hr
[2018-05-14] MEDS: Enoxaparin 40 mg Syringe SC SCH (09:10)
[2018-05-14 11:50] LABS: BASO % 0.9 % (0.0-2.0); EOS # 0.3 K/uL (0.0-0.7); EOS % 6.8 % (0.0-4.0); HEMOGLOBIN 11.2 g/dL (12.0-16.0); LYMPH % 38.8 % (20.0-40.0); MEAN CELL VOLUME 86.6 fl (81.0-99.0); MEAN CORPUSCULAR HEMOGLOBIN 29.5 pg (27.0-31.0); MEAN CORPUSCULAR HGB CONC 34.1 g/dL (33.0-37.0); MONO # 0.3 K/uL (0.0-0.8); MONO % 6.4 % (0.0-10.0); NEUT # 2.4 K/uL (1.8-7.0); NEUT % 47.1 % (50.0-75.0); NRBC % 0.2 % (0.0-0.0); RBC 3.81 Mil/uL (3.80-5.20); RED CELL DISTRIBUTION WIDTH 14.7 % (11.5-14.5); WHITE BLOOD COUNT 5.1 K/uL (4.8-10.8)
[2018-05-14 12:24] LABS: ALBUMIN 3.1 g/dL (3.5-5.0); ALT/SGPT 18 U/L (9-52); AST/SGOT 21 U/L (14-36); BLOOD UREA NITROGEN 5 mg/dl (7-17); CALCIUM 8.2 mg/dL (8.4-10.2); GFR NON-AFRICAN AMERICAN > 60
[2018-05-14] MEDS ORDERED: Insulin Lispro (humaLOG) 100 Units/ml Inj SC SCH (13:00)
[2018-05-14] MEDS ORDERED: Insulin Detemir 100 Units/ml Inj SC STA (13:53)
[2018-05-14 14:19] VITALS: O2SAT 100
[2018-05-14] MEDS: Insulin Lispro (humaLOG) 100 Units/ml Inj SC SCH ×3 (17:20→22:54)
--- NOTE | 2018-05-14 17:36 | PN ---
DATE: 05/14/2018 LOCATION: The patient in ICU, bed 426. TIME SPENT: 35 minutes. The patient is seen and evaluated at the bedside. Past medical, surgical, social and family history reviewed. SUBJECTIVE: This is a 27-year-old female with diabetes mellitus type 1, previously on insulin pump, noncompliant with medications, admitted with DKA; signed out and readmitted with complaining of being tired and lethargic associated with nausea without abdominal discomfort, diarrhea or dysuria. Overnight on insulin drip, put on titration protocol. This morning she is alert, awake, and follows commands appropriately. Complaining of feeling tired and weak. PHYSICAL EXAMINATION: VITAL SIGNS: Temperature 97.3, heart rate 93 to 102 regular, blood pressure 126/76, mean arterial pressure 92, respiratory rate 23, oxygen saturation 99 on room air. Intake 1516, output not documented. Urine being voided. HEAD, EYES, EARS, NOSE AND THROAT: Pupils are reactive. Conjunctivae pink. Sclerae white. NECK: Supple. Trachea central. CHEST: Bilateral breath sounds. Clear to auscultation. HEART: Rhythm regular. S1 and S2, normal intensity. No S3, S4 or gallop. No audible murmur. ABDOMEN: Bowel sounds present. Soft. Liver and spleen not palpable. Bladder not distended. EXTREMITIES: No clubbing, cyanosis or edema. NEUROLOGIC: Nonfocal. CURRENT MEDICATIONS: Lovenox 40 subcutaneously daily, Pepcid 20 p.o. twice daily, insulin drip at 2 units now being titrated, IVF:_ D5 half normal with 20 of KCl at 250 mL/hour. LABORATORY DATA: WBC 5.1, hemoglobin 11.2, hematocrit 33, platelet count 276. SMA-7; sodium 137, potassium of 4, chloride 112, CO2 of 15, blood urea nitrogen 5, creatinine 0.4, random glucose 127, calcium 8.2, total bilirubin 0.2, AST 21, ALT 18, alkaline phosphatase 89, total protein 6.3, albumin 3.1. Urinalysis; leukocyte esterase negative, rbc 4445, microscopic wbc 4. IMPRESSION AND PLAN: A 27-year-old female with type 1 diabetes, noncompliant with insulin regime admitted with nausea, abdominal discomfort, found to have a high anion gap, now being corrected. We will start the patient on Lantus insulin 15 units with Humalog 8 units three times a day with meals. Endocrinology consult for further evaluation. No clear evidence of infection.. No neurological, cardiac, or gastrointestinal issues noted. Continue deep vein thrombosis and gastrointestinal prophylaxis. Donnie Ramos MD [facility]
[2018-05-14 21:56] LABS: BLOOD UREA NITROGEN 4 mg/dl (7-17); CALCIUM 8.3 mg/dL (8.4-10.2); GFR NON-AFRICAN AMERICAN > 60
[2018-05-14] MEDS ORDERED: Insulin Detemir 100 Units/ml Inj SC SCH ×2 (22:00)
[2018-05-14] MEDS ORDERED: Dextrose 5%/0.45% NS 1,000 ML IV SCH (22:45)
[2018-05-15] MEDS: Insulin Lispro (humaLOG) 100 Units/ml Inj SC SCH ×6 (00:20→16:25)
--- NOTE | 2018-05-15 02:04 | CON ---
DATE: 05/14/2018 ENDOCRINOLOGY CONSULTATION LOCATION: ICU room 426. HISTORY OF PRESENT ILLNESS: This is a 27-year-old female with known history of uncontrolled type 1 insulin-dependent diabetes, currently on a [employer] insulin pump but apparently ran out of supplies, presents here with marked hyperglycemic accelerations and increasing somnolence and lethargy and was actually seen in the emergency room the other day and signed out against medical advice because of concerns with her two young children at home. She actually signed in again last night because of persistent hyperglycemic accelerations and increasing lethargy and generalized body weakness with marked polyuria, nocturia, and polydipsia. PAST MEDICAL HISTORY: As mentioned above, has had multiple hospital admissions for diabetic ketoacidosis and dehydration over the last five years as noted. The patient has very poor adherence to her basal and bolus insulin regimen and when switched over to the [employer] insulin pump, had the same issues with apparently running out of her supplies which is quite a surprise because the insulin supplies are mailed by [employer] every month to the patient in general. FAMILY HISTORY: Positive for hypertension and diabetes. SOCIAL HISTORY: The patient has two young daughters and her mother is the main health sanitarian at this time when she is at work. No known substance use. REVIEW OF SYSTEMS: As mentioned above, admits to generalized body weakness with progressive bouts of dizziness and lightheadedness with increasing somnolence and lethargy as noted. No chest pains, palpitations, or PNDs. Her oral intake has been variable with nausea, dyspepsia, and vague upper abdominal pains. Also admits to marked polyuria, nocturia, and polydipsia. PHYSICAL EXAMINATION: GENERAL: This is an average-built female, in no apparent distress. VITAL SIGNS: With a blood pressure of 130/80, pulse of 100 beats per minute and regular, temperature 98, respirations 20. Height is 5 feet 3 inches. Weight is 140 pounds. HEENT: Head is normocephalic. Eyes anicteric with pink conjunctivae. Funduscopy not possible at this time. Ears, nose, and throat otherwise normal. NECK: Supple. Thyroid gland is normal in size. No carotid bruits or any cervical adenopathy. CARDIOPULMONARY: Some adynamic precordium. S1 and S2 are rapid and regular. Lungs are clear to auscultation. ABDOMEN: Flat, soft with positive bowel sounds. EXTREMITIES: No peripheral edema. Pulses are +2 bilaterally. LABORATORY DATA: Her chemistry showed a BUN of 5, sodium 137, potassium 4, chloride 112, CO2 is now 15, glucose is 127, and creatinine is 0.4. The initial CO2 was 7 as noted. ASSESSMENT: This is a 27-year-old female with uncontrolled and decompensated type 1 insulin-dependent diabetes with apparent recent drug omission because of running out of her insulin supplies and switched over to a short-acting insulin therapy just prior to this admission and now presents with diabetic ketoacidosis and dehydration. There is a very strong history of poor adherence to her insulin regimen as mentioned. PLAN OF MANAGEMENT: As the patient now improved clinically and metabolically with resolving acidosis, then we will switch her over to a more physiologic basal and bolus insulin regimen before she signs out again. We will start her with Levemir given as a stat dose of 10 units subcu now, and then we will give her basal insulin with Levemir given as 12 units subcu at bedtime daily to start tonight. We will add Humalog given as 6 units t.i.d. before meals to start at dinnertime today as ordered. We will modify the coverage scale to obviate hypoglycemia and detailed orders have been given. We will continue, however, the vigorous IV hydration with D5 and half normal saline with KCl 20 mEq running at 250 mL per hour at least overnight to fully replenish the lost fluids and electrolytes from the increased osmotic diuresis thereof. We will obtain serial chemistries and supplement accordingly as needed. We will also obtain a hemoglobin A1c to confirm her prior glycemic control and baseline thyroid function studies, and a lipid panel will be ordered. We will follow and advise accordingly. Monet Gallego MD
[2018-05-15 06:35] LABS: ALBUMIN 3.1 g/dL (3.5-5.0); ALT/SGPT 16 U/L (9-52); AST/SGOT 27 U/L (14-36); BLOOD UREA NITROGEN 4 mg/dl (7-17); CALCIUM 8.6 mg/dL (8.4-10.2); GFR NON-AFRICAN AMERICAN > 60; HDL CHOLESTEROL 45 MG/DL (30-70)
[2018-05-15 06:43] LABS: LDL CHOLESTEROL 141 mg/dL (0-129)
[2018-05-15] MEDS: Enoxaparin 40 mg Syringe SC SCH (09:13)
[2018-05-15] MEDS: Potassium Ch 20mEq in D5-1/2NS 1,000 ML IV SCH (09:16)
[2018-05-15 15:44] VITALS: BP 127/81; PULSE 94; RESP 15; TEMP 98.8
[2018-05-15] MEDS ORDERED: Insulin Lispro (humaLOG) 100 Units/ml Inj SC SCH (16:30)
[2018-05-15] MEDS ORDERED: Magnesium Oxide 400 mg Tab UD PO SCH (17:00)
[2018-05-15] MEDS ORDERED: Insulin Detemir 100 Units/ml Inj SC SCH (22:00)
--- NOTE | 2018-05-15 22:51 | CP.PCM.DIS ---
Provider - Provider Date of Admission: 05/14/18 01:11 Attending physician: Latesha Fung MD Time Spent in preparation of Discharge (in minutes): 25 Hospital Course - Lab Results Lab Results: Micro Results 05/14/18 07:30 Naris MRSA Culture (Admit) - Final MRSA NOT DETECTED Most Recent Lab Values WBC 5.1 K/uL (4.8-10.8) 05/14/18 11:20 RBC 3.81 Mil/uL (3.80-5.20) 05/14/18 11:20 Hgb 11.2 g/dL (12.0-16.0) L 05/14/18 11:20 Hct 33.0 % (34.0-47.0) L 05/14/18 11:20 MCV 86.6 fl (81.0-99.0) D 05/14/18 11:20 MCH 29.5 pg (27.0-31.0) 05/14/18 11:20 MCHC 34.1 g/dL (33.0-37.0) 05/14/18 11:20 RDW 14.7 % (11.5-14.5) H 05/14/18 11:20 Plt Count 276 K/uL (130-400) 05/14/18 11:20 MPV 7.0 fl (7.2-11.7) L 05/14/18 11:20 Neut % (Auto) 47.1 % (50.0-75.0) L 05/14/18 11:20 Lymph % (Auto) 38.8 % (20.0-40.0) 05/14/18 11:20 [place] % (Auto) 6.4 % (0.0-10.0) 05/14/18 11:20 Eos % (Auto) 6.8 % (0.0-4.0) H 05/14/18 11:20 Baso % (Auto) 0.9 % (0.0-2.0) 05/14/18 11:20 Neut # (Auto) 2.4 K/uL (1.8-7.0) 05/14/18 11:20 Lymph # (Auto) 2.0 K/uL (1.0-4.3) 05/14/18 11:20 [place] # (Auto) 0.3 K/uL (0.0-0.8) 05/14/18 11:20 Eos # (Auto) 0.3 K/uL (0.0-0.7) 05/14/18 11:20 Baso # (Auto) 0.0 K/uL (0.0-0.2) 05/14/18 11:20 pO2 24 mm/Hg (30-55) L 05/13/18 22: VBG pH 7.17 (7.32-7.43) L* 05/13/18 22: VBG pCO2 23 mmHg (40-60) L 05/13/18 22:27 VBG HCO3 8.7 mmol/L 05/13/18: VBG Total CO2 9.1 mmol/L (22-28) L 05/13/18: VBG O2 Sat (Calc) 56.5 % (40-65) 05/13/18 22: VBG Base Excess -18.3 mmol/L (0.0-2.0) L 05/13/18: VBG Potassium 4.2 mmol/L (3.6-5.2) 05/13/18 22: Sodium 138.0 mmol/L (132-148) 05/13/18: Chloride 107.0 mmol/L (98-107) 05/13/18 22: Glucose 145 mg/dL (65-105) H 05/13/18 22: Lactate 4.8 mmol/L (0.7-2.1) H* 05/13/18: FiO2 21.0 % 05/13/18 22: Blood Gas Comments Lac=4.8 05/13/18 22:27 Crit Value Called To aisha Gomez 05/13/18 22: Crit Value Called By 22 05/13/18: Crit Value Read Back Y 05/13/18: Blood Gas Notified Time 223405/13/18 22:27 Sodium 140 mmol/l (132-148) 05/15/18 05:30 Potassium 3.6 MMOL/L (3.6-5.0) 05/15/18 05:30 Chloride 111 mmol/L (98-107) H 05/15/18 05:30 Carbon Dioxide 17 mmol/L (22-30) L 05/15/18 05:30 Anion Gap 16 (10-20) 05/15/18 05:30 BUN 4 mg/dl (7-17) L 05/15/18 05:30 Creatinine 0.4 mg/dl (0.7-1.2) L 05/15/18 05:30 Est GFR ( Amer) > 60 05/15/18 05:30 Est GFR (Non-Af Amer) > 60 05/15/18 05:30 POC Glucose (mg/dL) 44 mg/dL (65-110) L 05/13/18 23:18 Random Glucose 130 mg/dL (65-105) H 05/15/18 05:30 Calcium 8.6 mg/dL (8.4-10.2) 05/15/18 05:30 Phosphorus 2.6 mg/dl (2.5-4.5) 05/15/18 05:30 Magnesium 1.5 MG/DL (1.6-2.3) L 05/15/18 05:30 Total Bilirubin < 0.1 mg/dl (0.2-1.3) L 05/15/18 05:30 AST 27 U/L (14-36) 05/15/18 05:30 ALT 16 U/L (9-52) 05/15/18 05:30 Alkaline Phosphatase 87 U/L (38-126) 05/15/18 05:30 Total Protein 6.3 G/DL (6.3-8.2) 05/15/18 05:30 Albumin 3.1 g/dL (3.5-5.0) L 05/15/18 05:30 Globulin 3.1 gm/dL (2.2-3.9) 05/15/18 05:30 Albumin/Globulin Ratio 1.0 (1.0-2.1) 05/15/18 05:30 Triglycerides 178 mg/DL (0-149) H 05/15/18 05:30 Cholesterol 185 mg/dL (0-199) 05/15/18 05:30 LDL Cholesterol Direct 141 mg/dL (0-129) H 05/15/18 05:30 HDL Cholesterol 45 MG/DL (30-70) 05/15/18 05:30 TSH 3rd Generation 3.89 mIU/ML (0.46-4.68) 05/15/18 05:30 Venous Blood Potassium 4.2 mmol/L (3.6-5.2) 05/13/18 22:27 Urine Color Red (YELLOW) 05/13/18 22:26 Urine Clarity Cloudy (Clear) 05/13/18 22:26 Urine pH 6.0 (5.0-8.0) 05/13/18 22:26 Ur Specific [place] 1.021 (1.003-1.030) 05/13/18 22:26 Urine Protein 100 mg/dL (NEGATIVE) 05/13/18 22:26 Urine Glucose (UA) >=500 mg/dL (Normal) 05/13/18: Urine Ketones 80 mg/dL (NEGATIVE) 05/13/18 22:26 Urine Blood Large (NEGATIVE) 05/13/18 22:26 Urine Nitrate Negative (NEGATIVE) 05/13/18 22: Urine Bilirubin Negative (NEGATIVE) 05/13/18 22:26 Urine Urobilinogen 0.2-1.0 mg/dL (0.2-1.0) 05/13/18 22:26 Ur Leukocyte Esterase Neg Dian/uL (Negative) 05/13/18 22:26 Urine RBC (Auto) 4445 /hpf (0-3) H 05/13/18 22:26 Urine Microscopic WBC 4 /hpf (0-5) 05/13/18 22:26 Ur Squamous Epith Cells 1 /hpf (0-5) 05/13/18 22:26 Discharge Exam - Head Exam Head Exam: ATRAUMATIC, NORMAL INSPECTION, NORMOCEPHALIC Discharge Plan - Follow Up Plan Condition: GUARDED Disposition: AGAINST MEDICAL ADVICE
--- NOTE | 2018-05-16 02:00 | PN ---
DATE: 05/15/2018 CRITICAL CARE PROGRESS NOTE LOCATION: The patient in ICU bed 426. Time spent 25 minutes. The patient is seen and evaluated at the bedside. Past medical, surgical, and social history reviewed. SUBJECTIVE: A 27-year-old female, 2, para 0 with diabetes mellitus type 1, previously on insulin pump, noncompliant with medications. Admitted with fluctuations of blood sugar and in DKA, on insulin drip, weaned off as acidosis cleared off, currently on basal and bolus insulin. Seen by endocrinology consult. Dose of the insulin being adjusted for optimal control of blood sugar. Overnight, afebrile, normotensive, more wakeful and less tired. PHYSICAL EXAMINATION: VITAL SIGNS: Temperature 98, heart rate 93 and regular, blood pressure 132/84 with a mean of 71, respiratory rate of 19, saturating 100%. Intake 4890, output not documented. Weight 140 pounds. HEAD, EYES, EARS, NOSE AND THROAT: Pupils reactive. Conjunctivae pink. Sclerae white. NECK: Supple. Trachea central. CHEST: Bilateral breath sounds. Clear to auscultation. HEART: Rhythm regular. S1 and S2 normal intensity. No S3 or S4 gallop. No audible murmur. ABDOMEN: Bowel sounds present. Soft. Liver and spleen not palpable. Bladder not distended. EXTREMITIES: No clubbing, cyanosis, or edema. NEUROLOGIC: Nonfocal. CURRENT MEDICATIONS: Lovenox 40 mg subcu daily, Pepcid 20 mg p.o. b.i.d., Levemir 12 units subcu at bedtime, insulin human lispro Humalog 6 units subcu before meals , Accu-Chek with regular insulin coverage. LABORATORY DATA: WBC 5.1, hemoglobin 11.2, hematocrit 33, platelet count 276. Neutrophils 47.1, lymphocytes 38.8, monocytes 6.4. SMA-7: Sodium 140, potassium 3.6, chloride 111, CO2 of 17, blood urea nitrogen 4, creatinine 0.4, random glucose 130, calcium 8.6, phosphorus 2.6, magnesium 1.5. AST 27, ALT 16, total protein 6.3, albumin 3.1. Triglycerides of 178, LDL of 141, HDL of 45. TSH of 3.89. Urinalysis: Rbc's 4445, leukocyte esterase negative, wbc's 4. Microbiology: Nasal smear MRSA negative. Random glucose maintained around 86. IMPRESSION AND PLAN: Resolved diabetic ketoacidosis, diabetes mellitus type 1, noncompliance with insulin medications. We will transfer the patient to regular floor and continue to optimize the regimen as per endocrinology consult. Donnie Ramos MD
== END 2018-05-15 17:00 | disposition left against medical advice (07) | DRG 295 ==
LOC: H.ER 21:07 → H.ERHOLD 05-14 01:11 → H.ICU/CCU 05-14 02:56
PROVIDERS: ADMIT Internal Medicine; ATTEND Internal Medicine
DX: E10.10 Type 1 diabetes mellitus with ketoacidosis without coma (principal); E86.0 Dehydration; Z91.14 Patient's other noncompliance with medication regimen; E10.649 Type 1 diabetes mellitus with hypoglycemia without coma; Z87.891 Personal history of nicotine dependence; I10 Essential (primary) hypertension; Z79.4 Long term (current) use of insulin; Z91.19 Patient's noncompliance with other medical treatment and regimen; Z96.41 Presence of insulin pump (external) (internal); R35.1 Nocturia

== ENCOUNTER 2018-06-29 08:42 | Emergency (ER) | payer OTHER ==
[2018-06-29 08:43] VITALS: BMI 23.9
[2018-06-29 08:45] VITALS: RESP 18
--- NOTE | 2018-06-29 10:50 | ED PDOC ---
Hyperglycemia/Hypoglycemia Time Seen by Provider: 06/29/18 10:21 Chief Complaint (Nursing): High Blood Sugar Chief Complaint (Provider): High Blood Sugar History Per: Patient History/Exam Limitations: no limitations Onset/Duration Of Symptoms: Days (x6) Current Symptoms Are (Timing): Still Present : The patient does not have any of the infectious symptoms listed except for those marked. Additional Complaint(s): 31 year old female, with a PMHx of IDDM, presenting for evaluation of weakness and dizziness x6 days. Patient states she "feels like she's in DKA" and states her blood sugar is high. Patient states her symptoms have been present "all weekend" and reports being seen at [facility] 06/24/2018. Patient states her blood sugar was checked there and noted to be >500 mg/dL 3 times. Patient states she had blood work done and was discharged home. Patient is currently complaining of light headedness, dizziness and weakness. Patient reports compliance with her insulin. Patient admits she hasn't been eating well since her symptoms began, but reports drinking plenty of watery. Patient is also complaining of a cough, but states she believes it is related to smoking cigarettes. Patient otherwise denies any fevers, chills, nausea, vomiting, diarrhea, abdominal pain, chest pain, or shortness of breath. PMD: None Past Medical History Reviewed: Historical Data, Nursing Documentation, Vital Signs Vital Signs: Last Vital Signs Temp 98.2 F 06/29/18 08:44 Pulse 120 H 06/29/18 08:44 Resp 18 06/29/18 08:44 BP 109/71 06/29/18 08:44 Pulse Ox 99 06/29/18 08:44 - Medical History PMH: Bronchitis, Diabetes (type 1) Denies: Anxiety, Bipolar Disorder, Depression, HIV, Paranoia, Post Traumatic Stress Disorder, Chronic Kidney Disease, Schizophrenia - Surgical History Surgical History: (x2) - Family History Family History: States: Hypertension - Social History Current smoker - smoking cessation education provided: No Alcohol: Social Drugs: Denies - Immunization History Hx Tetanus Toxoid Vaccination: No Hx Influenza Vaccination: No Hx Pneumococcal Vaccination: No - Home Medications Home Medications: Ambulatory Orders Medication Instructions Recorded Insulin Lispro [humALOG] 0 unit SQ 5XD 05/12/18 Ondansetron ODT [Zofran ODT] 1 odt PO BID PRN #6 odt 06/20/18 Ketorolac Tromethamine [Toradol] 10 mg PO TID PRN #15 tab 06/21/18 - Allergies Allergies/Adverse Reactions: Allergies Allergy/AdvReac Type Severity Reaction Status Date / Time No Known Allergies Allergy Verified 05/13/18 21:11 Review of Systems ROS Statement: Except As Marked, All Systems Reviewed And Found Negative Constitutional: Positive for: Weakness. Negative for: Fever, Chills Cardiovascular: Negative for: Chest Pain Respiratory: Negative for: Shortness of Breath Gastrointestinal: Negative for: Nausea, Vomiting, Abdominal Pain, Diarrhea Neurological: Positive for: Dizziness Physical Exam - Reviewed Nursing Documentation Reviewed: Yes Vital Signs Reviewed: Yes - Physical Exam Appears: Positive for: Non-toxic, No Acute Distress Head Exam: Positive for: ATRAUMATIC, NORMAL INSPECTION, NORMOCEPHALIC Skin: Positive for: Normal Color, Warm, Dry. Negative for: Rash Eye Exam: Positive for: EOMI, Normal appearance, PERRL ENT: Positive for: Normal ENT Inspection Neck: Positive for: Normal, Painless ROM, Supple Cardiovascular/Chest: Positive for: Regular Rate, Rhythm. Negative for: Murmur Respiratory: Positive for: Normal Breath Sounds. Negative for: Respiratory Distress Gastrointestinal/Abdominal: Positive for: Normal Exam, Soft. Negative for: Tenderness Back: Positive for: Normal Inspection. Negative for: L CVA Tenderness, R CVA Tenderness, Vertebral Tenderness Extremity: Positive for: Normal ROM. Negative for: Deformity Neurologic/Psych: Positive for: Alert, Oriented (x3). Negative for: Motor/Sensory Deficits - Laboratory Results Result Diagrams: 06/29/18 11:10 06/29/18 11:10 - ECG O2 Sat by Pulse Oximetry: 99 (RA) Pulse Ox Interpretation: Normal Medical Decision Making Medical Decision Making: Plan: -VBG shock panel -CMP -CBC -1L NS IVB x2 -Urine culture -Urinalysis -Reevaluation Anion gap noted to be 17. Of note, patient's labs were drawn after she ate. 1440: All labs reviewed. Patient's sugar is likely elevated due to eating a tray of food including bagels prior to labs. VBG noted to be elevated. Advised p atient of necessity repeat labs, after a 3rd liter of fluids, but patient is refusing labs and requesting to leave. Patient, however, is currently complaining of a cough and agreed to CXR. 1500: After further discussion, patient agrees to have repeat labs after 3rd liter of fluids. ---- Scribe Attestation: Documented by Speedy Ortiz, acting as a scribe for Jigna Wheeler MD. Provider Scribe Attestation: All medical record entries made by the Scribe were at my direction and personally dictated by me. I have reviewed the chart and agree that the record accurately reflects my personal performance of the history, physical exam, medical decision making, and the department course for this patient. I have also personally directed, reviewed, and agree with the discharge instructions and disposition. Disposition - Clinical Impression Clinical Impression: Hyperglycemia, Left against medical advice - Disposition Referrals: [facility] [Outside] [facility] [Outside] Monet Gallego MD [Medical Doctor] - Condition: IMPROVED Additional Instructions: follow up with the clinic or in the ER as soon as possible return to the ED with any worsening or concerning symptoms Instructions: Hyperglycemia, Adult (DC), Leaving Against Medical Advice Forms: [email or web address] ([place])
[2018-06-29] MEDS: Sodium Chloride 0.9% 1,000 ML IV STA ×3 (11:27→15:08)
[2018-06-29 11:40] LABS: BASO % 0.5 % (0.0-2.0); EOS # 0.1 K/uL (0.0-0.7); EOS % 1.6 % (0.0-4.0); HEMOGLOBIN 12.3 g/dL (12.0-16.0); LYMPH # 1.4 K/uL (1.0-4.3); LYMPH % 22.6 % (20.0-40.0); MEAN CELL VOLUME 88.7 fl (81.0-99.0); MEAN CORPUSCULAR HEMOGLOBIN 28.5 pg (27.0-31.0); MEAN CORPUSCULAR HGB CONC 32.1 g/dL (33.0-37.0); MEAN PLATELET VOLUME 8.1 fl (7.2-11.7); MONO # 0.3 K/uL (0.0-0.8); MONO % 4.9 % (0.0-10.0); NEUT # 4.3 K/uL (1.8-7.0); NEUT % 70.4 % (50.0-75.0); NRBC % 0.1 % (0.0-0.0); RBC 4.3 Mil/uL (3.80-5.20); RED CELL DISTRIBUTION WIDTH 13.6 % (11.5-14.5); WHITE BLOOD COUNT 6.2 K/uL (4.8-10.8)
[2018-06-29 11:52] LABS: ALB/GLOB RATIO 1.3 (1.0-2.1); ALBUMIN 4.1 g/dL (3.5-5.0); BLOOD UREA NITROGEN 14 mg/dl (7-17); CALCIUM 9.4 mg/dL (8.4-10.2); GFR NON-AFRICAN AMERICAN > 60
[2018-06-29 11:52] LABS: GRANULAR CAST 18 /lpf (0-1); SQUAMOUS EPITHIAL 3 /hpf (0-5); URINE BILIRUBIN NEGATIVE (NEGATIVE); URINE BLOOD SMALL (NEGATIVE); URINE CALCIUM OXALATE CRYSTALS OCC /hpf (<OCC); URINE CLARITY CLOUDY (Clear); URINE COLOR YELLOW (YELLOW); URINE GLUCOSE (UA) 150 mg/dL (NEGATIVE); URINE LEUKOCYTE ESTERASE NEG Leu/uL (Negative); URINE PROTEIN 100 mg/dL (NEGATIVE); URINE UROBILINOGEN 0.2-1.0 mg/dL (0.2-1.0)
[2018-06-29 11:54] LABS: ALT/SGPT 28 U/L (9-52); AST/SGOT 39 U/L (14-36)
[2018-06-29] MEDS ORDERED: Insulin Regular 100 units/ml SC STA (14:18)
[2018-06-29] MEDS ORDERED: Insulin Regular 100 units/ml ONE (14:24)
[2018-06-29] MEDS ORDERED: Sodium Chloride 0.9% 1,000 ML IV STA (14:35)
--- NOTE | 2018-06-29 14:55 | RAD ---
Date of service: 06/29/2018 HISTORY: cough COMPARISON: 03/22/2018 TECHNIQUE: Chest PA and lateral FINDINGS: LUNGS: Prior bibasilar infiltrates have cleared. Currently no consolidation or infiltrate noted. PLEURA: Prior by lateral pleural effusions have cleared. Currently no pleural effusions noted. No pneumothorax seen. CARDIOVASCULAR: There is absence of aortic atherosclerotic calcification on x-ray. Normal cardiac size. No pulmonary vascular congestion. OSSEOUS STRUCTURES: No significant abnormalities. VISUALIZED UPPER ABDOMEN: Normal. OTHER FINDINGS: None. IMPRESSION: Prior bibasilar infiltrates and prior biopsy lateral pleural effusions have all cleared . Currently no infiltrate interval pathology noted.
[2018-06-29 16:35] LABS: BLOOD UREA NITROGEN 10 mg/dl (7-17); GFR NON-AFRICAN AMERICAN > 60
[2018-06-29 16:36] LABS: ALB/GLOB RATIO 1.1 (1.0-2.1); ALBUMIN 3.3 g/dL (3.5-5.0); ALT/SGPT 21 U/L (9-52); AST/SGOT 20 U/L (14-36); CALCIUM 8.1 mg/dL (8.4-10.2)
[2018-06-29 16:46] LABS: VENOUS BLOOD GAS BASE EXCESS -9.7 mmol/L (0.0-2.0); VENOUS BLOOD GAS PCO2 35 mmHg (40-60); VENOUS BLOOD GAS PO2 30 mm/Hg (30-55); VENOUS BLOOD PH 7.27 (7.32-7.43)
[2018-06-29 17:10] VITALS: BP 109/63; PULSE 97; TEMP 98.4; O2SAT 98
[2018-06-29 23:48] LABS: VENOUS BLOOD GAS BASE EXCESS -15.5 mmol/L (0.0-2.0); VENOUS BLOOD GAS PCO2 17 mmHg (40-60); VENOUS BLOOD GAS PO2 162 mm/Hg (30-55)
== END 2018-06-29 17:32 | disposition home or self-care (01) ==
LOC: H.ER 08:42
DX: E11.65 Type 2 diabetes mellitus with hyperglycemia (principal); Z79.4 Long term (current) use of insulin; R05 Cough
CPT/HCPCS: 71046; 80053; 81003; 81025; 82803; 82948; 85025; 87086; 96360; 96361; 99285; J7030

== ENCOUNTER 2018-06-29 22:43 | Inpatient (IN) | payer OTHER ==
[2018-06-29 22:44] VITALS: BMI 23.9
[2018-06-29] MEDS ORDERED: Sodium Chloride 0.9% 1,000 ML IV STA ×2 (23:10→23:55)
--- NOTE | 2018-06-29 23:39 | ED PDOC ---
HPI: SOB/CHF/COPD Time Seen by Provider: 06/29/18 23:04 Chief Complaint (Nursing): Dizziness/Lightheaded Chief Complaint (Provider): Shortness of Breath History Per: Patient History/Exam Limitations: no limitations Onset/Duration Of Symptoms: Hrs Current Symptoms Are (Timing): Still Present Additional Complaint(s): 27 y/o female with a PMHx of Type I DM and multiple admissions for diabetic ketoacidosis presents to the ED for evaluation of shortness of breath. Patient was seen and evaluated here earlier today and was said to have been discharged home. However, chart review suggests patient signed out AMA. Patient is insisting that she was discharged home although she feels like she shouldn't have been. Patient states she has been home even though blood sugar level is not normal and has begun feeling short of breath. Patient is concerned she has developed diabetic ketoacidosis although she was told she didn't upon discharge. Additionally, patient is also reporting shortness of breath is associated with epigastric discomfort. PMD: Monet Gallego (sulfonation equipment operator in ) Past Medical History Reviewed: Historical Data, Nursing Documentation, Vital Signs Vital Signs: Last Vital Signs Temp 98 F 06/29/18 22:48 Pulse 106 H 06/29/18 22:48 Resp 18 06/29/18 22:48 BP 134/77 06/29/18 22:48 Pulse Ox 100 06/29/18 22:48 - Medical History PMH: Bronchitis, Diabetes (type 1) Denies: Anxiety, Bipolar Disorder, Depression, HIV, Paranoia, Post Traumatic Stress Disorder, Chronic Kidney Disease, Schizophrenia - Surgical History Surgical History: (x2) - Family History Family History: States: Hypertension - Social History Current smoker - smoking cessation education provided: No Alcohol: None Drugs: Denies - Immunization History Hx Tetanus Toxoid Vaccination: No Hx Influenza Vaccination: No Hx Pneumococcal Vaccination: No - Home Medications Home Medications: Ambulatory Orders Medication Instructions Recorded Insulin Lispro [Humalog (Insulin See Protocol SQ [facility] 06/30/18 Lispro)] - Allergies Allergies/Adverse Reactions: Allergies Allergy/AdvReac Type Severity Reaction Status Date / Time No Known Allergies Allergy Verified 05/13/18 21:11 Review of Systems ROS Statement: Except As Marked, All Systems Reviewed And Found Negative Constitutional: Positive for: Other (Possible DKA) Respiratory: Positive for: Shortness of Breath Gastrointestinal: Positive for: Abdominal Pain (epigastric discomfort) Physical Exam - Reviewed Nursing Documentation Reviewed: Yes Vital Signs Reviewed: Yes - Physical Exam Appears: Positive for: No Acute Distress Head Exam: Positive for: ATRAUMATIC, NORMOCEPHALIC Skin: Positive for: Normal Color, Warm, Dry Eye Exam: Positive for: Normal appearance, EOMI, PERRL Neck: Positive for: Normal, Painless ROM Cardiovascular/Chest: Positive for: Tachycardia (with regular rhythm) Respiratory: Positive for: Normal Breath Sounds. Negative for: Respiratory Distress Gastrointestinal/Abdominal: Positive for: Normal Exam, Soft. Negative for: Tenderness Extremity: Positive for: Normal ROM. Negative for: Deformity Neurologic/Psych: Positive for: Alert, Oriented (x3). Negative for: Motor/Sensory Deficits - Laboratory Results Result Diagrams: 06/30/18 00:00 06/30/18 00:16 - ECG O2 Sat by Pulse Oximetry: 100 (RA) Pulse Ox Interpretation: Normal - Critical Care Total Time (In Min): 30 Medical Decision Making Medical Decision Making: Time: 2330 Impression: 27 y/o female with shortness of breath, in setting of previous DKA Plan: -- ABG -- CMP -- Lipase -- ED Urine -- CBC with Differentials -- Sodium Chloride IV 1000 mls/hr -- Pantoprazole 40 mg IV -- Heplock Insertion -- Accucheck -- Urinalysis Time: 2342 --ABG reviewed significant for acidotic state and lactate level. --Given patient's second visit to ED, will admit for DKA with euglycemia --Case discussed with Dr. Monet Gallego, patient's sulfonation equipment operator, who states patient should be placed on lowest dose of insulin drip protocol as well as dextrose drip and IV aggressive hydration. Time: [address] Roy for admission and Dr. Jj for ICU placement. Scribe Attestation: Documented by Kelly Magana, acting as a scribe for Kevin Lucas MD. Provider Scribe Attestation: All medical record entries made by the Scribe were at my direction and personally dictated by me. I have reviewed the chart and agree that the record accurately reflects my personal performance of the history, physical exam, medical decision making, and the department course for this patient. Disposition - Clinical Impression Clinical Impression: DKA (diabetic ketoacidoses) - Patient ED Disposition Is Patient to be Admitted: Yes - Disposition Disposition Time: 23:57 Condition: GUARDED
[2018-06-29] MEDS ORDERED: Potassium Chl 40 mEq in D5-NS 1,000 ML IV SCH (23:45)
[2018-06-29] MEDS ORDERED: Dextrose 50% SYRINGE Inj (50 ml) IV PRN (23:53)
[2018-06-29] MEDS ORDERED: Glucagon Recombinant 1 mg Inj IM PRN (23:53)
[2018-06-30 00:31] LABS: BASO % 0.8 % (0.0-2.0); EOS # 0.1 K/uL (0.0-0.7); HEMOGLOBIN 12.5 g/dL (12.0-16.0); LYMPH # 2.1 K/uL (1.0-4.3); LYMPH % 36.1 % (20.0-40.0); MEAN CELL VOLUME 86.6 fl (81.0-99.0); MEAN CORPUSCULAR HEMOGLOBIN 28.2 pg (27.0-31.0); MEAN CORPUSCULAR HGB CONC 32.6 g/dL (33.0-37.0); MONO # 0.3 K/uL (0.0-0.8); MONO % 5.1 % (0.0-10.0); NEUT # 3.3 K/uL (1.8-7.0); NRBC % 0.2 % (0.0-0.0); RBC 4.42 Mil/uL (3.80-5.20); RED CELL DISTRIBUTION WIDTH 13.2 % (11.5-14.5); WHITE BLOOD COUNT 5.9 K/uL (4.8-10.8)
[2018-06-30 00:55] LABS: ALB/GLOB RATIO 1.3 (1.0-2.1); ALBUMIN 4.3 g/dL (3.5-5.0); ALT/SGPT 21 U/L (9-52); AST/SGOT 30 U/L (14-36); BLOOD UREA NITROGEN 10 mg/dl (7-17); CALCIUM 9.1 mg/dL (8.4-10.2); GFR NON-AFRICAN AMERICAN > 60
[2018-06-30 01:05] LABS: SQUAMOUS EPITHIAL 2 /hpf (0-5); URINE BACTERIA RARE (<OCC); URINE BILIRUBIN NEGATIVE (NEGATIVE); URINE BLOOD NEGATIVE (NEGATIVE); URINE CLARITY SLIGHTY-CLOUDY (Clear); URINE COLOR STRAW (YELLOW); URINE GLUCOSE (UA) >=500 mg/dL (NEGATIVE); URINE LEUKOCYTE ESTERASE SMALL Leu/uL (Negative); URINE PROTEIN NEGATIVE (NEGATIVE); URINE UROBILINOGEN 0.2-1.0 mg/dL (0.2-1.0)
--- NOTE | 2018-06-30 01:15 | CP.PCM.CON ---
History of Present Illness - History of Present Illness History of Present Illness: Attending: Kirill Gonzalez MD Airplane Inspector: Monet Bill MD Reason for Consult: Critical care Management Chief Complaint: Polyuria/Vomiting The patient was seen and examined in the ED HPI: 27 years old female with hx of IDDM and multiple admissions for DKA, comes with polyuria, polydypsia, dizziness, loss of energy, generalized weakness and loss of energy. She refers productive coughing. No fever, chills, diarrhea dysuria. She was at the ED earlier in the Day with same complaint, received 3 liters of Normal Saline and apparently discharged. PMH: IDDM, Nephrolithiasis PSH: Cesarian Section X2; insulin Pump insertion; Right thigh abscess with I&D in 2006 SH: Light smoker; drinks Alcohol socially; No illegal drug use; live with family FH: no known family hx Allergies: NKDA Medication: Reviewed Review of Systems - Constitutional Constitutional: absent: Anorexia, Chills, Fever, Headache, Lethargy - EENT Eyes: Requires Corrective Lenses. absent: Diplopia, Discharge, Floaters Ears: absent: Decreased Hearing, Ear Discharge, Tinnitus Nose/Mouth/Throat: absent: Epistaxis, Nasal Congestion, Sinus Pressure, Bleeding Gums - Cardiovascular Cardiovascular: absent: Chest Pain, Dyspnea, Edema - Respiratory Respiratory: Cough. absent: Dyspnea, Wheezing, Stridor - Gastrointestinal Gastrointestinal: absent: Constipation, Diarrhea, Nausea, Vomiting - Genitourinary Genitourinary: absent: Dysuria, Flank Pain, Urinary Frequency - Musculoskeletal Musculoskeletal: Muscle Weakness. absent: Back Pain, Stiffness - Integumentary Integumentary: Swelling. absent: Pruritus, Rash, Skin Ulcer, Sores, Striae - Neurological Neurological: Dizziness, Weakness. absent: Confusion, Focal Weakness, Headaches - Psychiatric Psychiatric: absent: Anxiety, Depression, Panic Attacks - Endocrine Endocrine: Polydipsia, Polyuria. absent: Palpitations, Polyphagia - Hematologic/Lymphatic Hematologic: absent: Easy Bleeding, Easy Bruising Past Patient History - Infectious Disease Hx of Infectious Diseases: None - Tetanus Immunizations Tetanus Immunization: Unknown - Past Medical History & Family History Past Medical History?: Yes - Past Social History Smoking Status: Light Smoker < 10 Cigarettes Daily Chewing Tobacco Use: No Cigar Use: No Alcohol: Social Drugs: Denies Home Situation {Lives}: With Family - CARDIAC Hx Cardiac Disorders: No - PULMONARY Hx Bronchitis: Yes - NEUROLOGICAL Hx Neurological Disorder: No - HEENT Hx HEENT Problems: No - RENAL Hx Chronic Kidney Disease: No - ENDOCRINE/METABOLIC Hx Endocrine Disorders: Yes Hx Diabetes Mellitus Type 1: Yes - HEMATOLOGICAL/ONCOLOGICAL Hx Blood Disorders: No Hx Human Immunodeficiency Virus (HIV): No - INTEGUMENTARY Hx Dermatological Problems: No - MUSCULOSKELETAL/RHEUMATOLOGICAL Hx Musculoskeletal Disorders: No Hx Falls: No - GASTROINTESTINAL Hx Gastrointestinal Disorders: No - GENITOURINARY/GYNECOLOGICAL Hx Genitourinary Disorders: No - PSYCHIATRIC Hx Anxiety: No Hx Bipolar Disorder: No Hx Depression: No Hx Paranoia: No Hx Post Traumatic Stress Disorder: No Hx Schizophrenia: No - SURGICAL HISTORY Hx Surgeries: Yes Hx Section: Yes (x2) Other/Comment: rt thigh abcess I&D (2006) / insulin pump c secetion - ANESTHESIA Hx Anesthesia: Yes Hx Anesthesia Reactions: No Hx Malignant Hyperthermia: No Meds Allergies/Adverse Reactions: Allergies Allergy/AdvReac Type Severity Reaction Status Date / Time No Known Allergies Allergy Verified 05/13/18 21:11 - Medications Medications: Current Medications Dextrose (Dextrose 50% Inj) 0 ml IV STAT PRN; Protocol PRN Reason: Hypoglycemia Protocol Dextrose (Glutose 15) 0 gm PO ONCE PRN; Protocol PRN Reason: Hypoglycemia Protocol Glucagon (Glucagen Diagnostic Kit) 0 mg IM STAT PRN; Protocol PRN Reason: Hypoglycemia Protocol Insulin Human Regular 100 (units/ Sodium Chloride) 101 mls @ 0 mls/hr IV .Q0M [facility]; Protocol Potassium Chloride/Dextrose/Sod Cl (D5-Ns1l+40meq Kcl) 1,000 mls @ 125 mls/hr IV .Q8H [facility] Stop: 06/30/18 23:56 Physical Exam - Constitutional Appears: No Acute Distress - Head Exam Head Exam: ATRAUMATIC, NORMAL INSPECTION, NORMOCEPHALIC - Eye Exam Eye Exam: EOMI, Normal appearance Pupil Exam: NORMAL ACCOMODATION, PERRL - ENT Exam ENT Exam: Mucous Membranes Dry, Normal Exam, Normal External Ear Exam - Neck Exam Neck exam: Positive for: Full Rom, Normal Inspection. Negative for: Lymphadenopathy, Tenderness - Respiratory Exam Respiratory Exam: Clear to Auscultation Bilateral. absent: Rales, Rhonchi, Wheezes - Cardiovascular Exam Cardiovascular Exam: REGULAR RHYTHM, RRR, +S1, +S2. absent: Gallop, JVD - GI/Abdominal Exam GI & Abdominal Exam: Normal Bowel Sounds, Soft. absent: Mass, Organomegaly - Rectal Exam Rectal Exam: Deferred - Extremities Exam Extremities exam: Positive for: full ROM, normal inspection. Negative for: calf tenderness, pedal edema - Back Exam Back exam: NORMAL INSPECTION. absent: CVA tenderness (L), CVA tenderness (R) - Neurological Exam Neurological exam: Alert, CN II-XII Intact, Oriented x3, Reflexes Normal - Psychiatric Exam Psychiatric exam: Normal Affect, Normal Mood - Skin Skin Exam: Dry, Intact, Normal Color, Warm Results - Vital Signs Recent Vital Signs: Last Vital Signs Temp 98 F 06/29/18 22:48 Pulse 106 H 06/29/18 22:48 Resp 18 06/29/18 22:48 BP 134/77 06/29/18 22:48 Pulse Ox 100 06/30/18 00:55 - Labs Result Diagrams: 06/30/18 00:00 06/30/18 00:16 Labs: Laboratory Results - last 24 hr 06/30/18 06/30/18 06/30/18 00:00 00:16 00:38 WBC 5.9 RBC 4.42 Hgb 12.5 Hct 38.3 MCV 86.6 D MCH 28.2 MCHC 32.6 L RDW 13.2 Plt Count 331 MPV 7.0 L Neut % (Auto) 56.0 Lymph % (Auto) 36.1 [place] % (Auto) 5.1 Eos % (Auto) 2.0 Baso % (Auto) 0.8 Neut # (Auto) 3.3 Lymph # (Auto) 2.1 [place] # (Auto) 0.3 Eos # (Auto) 0.1 Baso # (Auto) 0.0 Sodium 141 Potassium 3.5 L Chloride 112 H Carbon Dioxide 13 L Anion Gap 20 BUN 10 Creatinine 0.6 L Est GFR ( Amer) > 60 Est GFR (Non-Af Amer) > 60 Random Glucose 96 Calcium 9.1 Total Bilirubin 0.4 AST 30 ALT 21 Alkaline Phosphatase 77 Total Protein 7.6 Albumin 4.3 Globulin 3.3 Albumin/Globulin Ratio 1.3 Lipase 65 Urine Color Urine Clarity Urine pH Ur Specific [place] Urine Protein Urine Glucose (UA) Urine Ketones Urine Blood Urine Nitrate Urine Bilirubin Urine Urobilinogen Ur Leukocyte Esterase Urine RBC (Auto) Urine Microscopic WBC Ur Squamous Epith Cells Urine Bacteria 06/30/18 00:45 WBC RBC Hgb Hct MCV MCH MCHC RDW Plt Count MPV Neut % (Auto) Lymph % (Auto) [place] % (Auto) Eos % (Auto) Baso % (Auto) Neut # (Auto) Lymph # (Auto) [place] # (Auto) Eos # (Auto) Baso # (Auto) Sodium Potassium Chloride Carbon Dioxide Anion Gap BUN Creatinine Est GFR ( Amer) Est GFR (Non-Af Amer) Random Glucose Calcium Total Bilirubin AST ALT Alkaline Phosphatase Total Protein Albumin Globulin Albumin/Globulin Ratio Lipase Urine Color Straw Urine Clarity Slighty-cloudy Urine pH 5.0 Ur Specific [place] 1.020 Urine Protein Negative Urine Glucose (UA) >=500 Urine Ketones 80 Urine Blood Negative Urine Nitrate Negative Urine Bilirubin Negative Urine Urobilinogen 0.2-1.0 Ur Leukocyte Esterase Small Urine RBC (Auto) 4 H Urine Microscopic WBC 3 Ur Squamous Epith Cells 2 Urine Bacteria Rare - Imaging and Cardiology Chest x-ray Status: Image reviewed by me, Report reviewed by me Additional comment: No infiltrate Assessment & Plan - Assessment and Plan (Free Text) Plan: 27 years old female with hx of IDDM and multiple admissions for DKA, comes with polyuria, polydypsia, dizziness, loss of energy, generalized weakness and loss of energy. She refers productive coughing. No fever, chills, diarrhea dysuria. #. DKA - Consult Dr BILL endocrinology - IV Fluids NS given in ED. With Blood glucose less than 250mg/dl, IV D5/NS is started. - IV regular Insulin according to DKA protocol. Convert to Subcutaneous Insulin once Anion gap and carbon Dioxide has normalized. - Zofran for Vomiting #. Hypokalemia - Repleated - Maintenance of KCL in IV Fluid #. DVT prophylaxis with Lovenox #. Code Status: full - Date & Time Date: 06/30/18 Time: 01:15
[2018-06-30] MEDS ORDERED: Sterile Water 10 ML IV ONE (01:50)
[2018-06-30] MEDS ORDERED: Dextrose 50% SYRINGE Inj (50 ml) IVP ONE ×2 (03:17→03:51)
[2018-06-30] MEDS ORDERED: Dextrose 50% SYRINGE Inj (50 ml) IV PRN (04:23)
[2018-06-30] MEDS ORDERED: Glucagon Recombinant 1 mg Inj IM PRN (04:23)
[2018-06-30] MEDS ORDERED: Influenza Vaccine 60 MCG/0.5 ML SYR (3 yr & up) IM ONE (08:21)
[2018-06-30] MEDS ORDERED: Pneumococcal 23-Valent Vaccine IM ONE (08:21)
--- NOTE | 2018-06-30 08:29 | CON ---
DATE: 06/30/2018 LOCATION: ICU Room 421. HISTORY OF PRESENT ILLNESS: This is a 27-year-old female with known history of uncontrolled type 1 insulin-dependent diabetes, currently using a [employer] insulin pump who presents here with generalized body weakness and intractable vomiting with progressive shortness of breath and admitted with diabetic ketoacidosis and dehydration and is now being referred for diabetic evaluation and management. She was apparently seen a few hours prior to this admission and signed out against medical advice as noted. PAST MEDICAL HISTORY: As mentioned above, history of type 1 insulin-dependent diabetes, currently using a Medtronic insulin pump and there is a very big question of her compliance adherence to the upper mentioned as there have been no recent orders from the [employer] which I verified accordingly. She has had multiple hospital readmissions for diabetic ketoacidosis and dehydration. History of nephrolithiasis as noted. PAST SURGICAL HISTORY: She had two prior C-sections as noted. FAMILY HISTORY: Positive for hypertension and heart disease. SOCIAL HISTORY: The patient lives with her mother and has two young children, admits to smoking half a pack of cigarettes a day and has part-time jobs as noted. REVIEW OF SYSTEMS: Generalized body weakness with progressive bouts of dizziness and lightheadedness, worse on the day of admission. No chest pains or palpitations, but admits to progressive shortness of breath, especially on exertion. Her oral intake has been variable and suboptimal with nausea, dyspepsia and intractable vomiting episodes with diffuse abdominal pain. Also admits to marked polyuria, nocturia and polydipsia. PHYSICAL EXAMINATION: GENERAL: A female, in no apparent distress. VITAL SIGNS: Blood pressure of 130/80, pulse of 70 beats per minute and regular, temperature 98, respirations 20, height is 5 feet 3 inches, weight is 133 pounds. HEENT: Head, normocephalic. Eyes, anicteric with pink conjunctivae. Funduscopy not possible at this time. Ears, nose and throat otherwise normal. NECK: Supple. Thyroid gland is normal in size. No carotid bruits or cervical adenopathy. CARDIOPULMONARY: Some adynamic precordium. S1, S2 is rapid and regular. LUNGS: Clear to auscultation. ABDOMEN: Flat, soft with positive bowel sounds. EXTREMITIES: No peripheral edema. Pulses are +2 bilaterally. LABORATORY DATA: Chemistries: BUN of 10, sodium 141, potassium 3.5, chloride 112, CO2 was 13, glucose 96 and creatinine 0.6. Her glucose levels have ranged from 141 to 217 mg/dL. ASSESSMENT: This is a 27-year-old female with uncontrolled and decompensated type 1 insulin-dependent diabetes with very poor adherence and compliance to her use of the [employer]tronic insulin pump as noted. No home glucose monitoring levels are available at this time. She has had multiple hospital readmissions for diabetic ketoacidosis and dehydration even prior to the use of her insulin pump because of noncompliance to her insulin regimen. PLAN OF MANAGEMENT: As discussed lengthily with the patient at bedside, imperative need for tighter metabolic control cannot but be overemphasized especially with a higher risk for microvascular complications as noted and explained to the patient at bedside. We will initiate vigorous IV hydration as discussed with the ER physician very early this morning with normal saline infusion given at 200 mL per hour and to at least dispense 3 to 4 liters initially followed by a maintenance of D5 and a half-normal saline at 150 mL per hour as ordered. We will obtain a hemoglobin A1c to confirm her prior glycemic control and baseline thyroid function studies and a lipid panel will be ordered. We will reinforce diabetic education and dietary instructions at this admission. We will consult the [facility] and discuss with the [employer] pump specialist, Ms. Suzanna Colby, regarding the need for closer monitoring of her insulin supplies which are supposed to be sent on a monthly basis by the [employer]. We will try to hook her up with the so-called glucose sensor which will monitor her glucose readings continuously on a day-to-day basis. We will obtain serial chemistries and supplement accordingly as needed. We will follow up. Monet Gallego MD
[2018-06-30] MEDS: Enoxaparin 40 mg Syringe SC SCH (09:07)
--- NOTE | 2018-06-30 09:29 | CP.PCM.HP ---
<Gordon Bravo - Last Filed: 06/30/18 09:21> History of Present Illness - History of Present Illness History of Present Illness: HPI: Pt is a 27 y/o female with hxo f Type 1 DM (on with insulin pump) presenting with complaints of intractable nausea/vomiting and epigastric abdominal pain for the past 2 days. She states she has been feeling sick the past week with cough/congestion and chills (denies fevers). Reports that she has been complaint with her insulin. Of note patient has had multiple admission for DKA/Dehydration and was recently evaluated at [facility] yesterday and signed out AMA. Church Secretary: Dr. Gallego PMHX: IDDM Medications: Medronic insulin pump PsurgHx: 2 c sections FmHx: DM, HTN Social: Active cigarette smoker (1/2 pack daily) ED Course: -Accucheck: 146 -Bicarb 133 -K 2.5 -Urine 80 ketones -Lipase wnl -IV fluid hydration 2L NS -Insulin drip -ICU admission for DKA Present on Admission - Present on Admission Any Indicators Present on Admission: No Past Patient History - Infectious Disease Hx of Infectious Diseases: None - Tetanus Immunizations Tetanus Immunization: Unknown - Past Medical History & Family History Past Medical History?: Yes - Past Social History Smoking Status: Light Smoker < 10 Cigarettes Daily - CARDIAC Hx Cardiac Disorders: No - PULMONARY Hx Respiratory Disorders: Yes - NEUROLOGICAL Hx Neurological Disorder: No - HEENT Hx HEENT Problems: No - RENAL Hx Chronic Kidney Disease: No - ENDOCRINE/METABOLIC Hx Endocrine Disorders: Yes - HEMATOLOGICAL/ONCOLOGICAL Hx AIDS: No Hx Human Immunodeficiency Virus (HIV): No - INTEGUMENTARY Hx Dermatological Problems: No - MUSCULOSKELETAL/RHEUMATOLOGICAL Hx Musculoskeletal Disorders: No - GASTROINTESTINAL Hx Gastrointestinal Disorders: No - GENITOURINARY/GYNECOLOGICAL Hx Genitourinary Disorders: No - PSYCHIATRIC Hx Psychophysiologic Disorder: No - SURGICAL HISTORY Hx Surgeries: Yes Hx Section: Yes (x2) Other/Comment: rt thigh abcess I&D (2006) / insulin pump c secetion - ANESTHESIA Hx Anesthesia: Yes Hx Anesthesia Reactions: No Hx Malignant Hyperthermia: No Meds Allergies/Adverse Reactions: Allergies Allergy/AdvReac Type Severity Reaction Status Date / Time No Known Allergies Allergy Verified 05/13/18 21:11 Physical Exam - Constitutional Appears: No Acute Distress - Head Exam Head Exam: NORMAL INSPECTION - Eye Exam Eye Exam: Normal appearance - ENT Exam ENT Exam: Mucous Membranes Moist - Respiratory Exam Respiratory Exam: Clear to Auscultation Bilateral. absent: Rales, Wheezes - Cardiovascular Exam Cardiovascular Exam: REGULAR RHYTHM, +S1, +S2. absent: Systolic Murmur - GI/Abdominal Exam GI & Abdominal Exam: Normal Bowel Sounds, Soft. absent: Tenderness - Extremities Exam Extremities exam: Positive for: normal inspection. Negative for: pedal edema - Neurological Exam Neurological exam: Alert, Oriented x3 - Psychiatric Exam Psychiatric exam: Normal Affect - Skin Skin Exam: Normal Color Results - Vital Signs Recent Vital Signs: Last Vital Signs Temp 98.4 F 06/30/18 08:00 Pulse 105 H 06/30/18 08:00 Resp 17 06/30/18 08:00 BP 102/51 L 06/30/18 08:44 Pulse Ox 99 06/30/18 08:00 - Labs Result Diagrams: 06/30/18 00:00 06/30/18 00:16 Labs: Laboratory Results - last 24 hr 06/29/18 06/30/18 06/30/18 23:24 00:00 00:16 WBC 5.9 RBC 4.42 Hgb 12.5 Hct 38.3 MCV 86.6 D MCH 28.2 MCHC 32.6 L RDW 13.2 Plt Count 331 MPV 7.0 L Neut % (Auto) 56.0 Lymph % (Auto) 36.1 [place] % (Auto) 5.1 Eos % (Auto) 2.0 Baso % (Auto) 0.8 Neut # (Auto) 3.3 Lymph # (Auto) 2.1 [place] # (Auto) 0.3 Eos # (Auto) 0.1 Baso # (Auto) 0.0 Sodium 141 Potassium 3.5 L Chloride 112 H Carbon Dioxide 13 L Anion Gap 20 BUN 10 Creatinine 0.6 L Est GFR ( Amer) > 60 Est GFR (Non-Af Amer) > 60 POC Glucose (mg/dL) 146 H Random Glucose 96 Calcium 9.1 Total Bilirubin 0.4 AST 30 ALT 21 Alkaline Phosphatase 77 Total Protein 7.6 Albumin 4.3 Globulin 3.3 Albumin/Globulin Ratio 1.3 Lipase Urine Color Urine Clarity Urine pH Ur Specific Valentine Urine Protein Urine Glucose (UA) Urine Ketones Urine Blood Urine Nitrate Urine Bilirubin Urine Urobilinogen Ur Leukocyte Esterase Urine RBC (Auto) Urine Microscopic WBC Ur Squamous Epith Cells Urine Bacteria 06/30/18 06/30/18 06/30/18 00:38 00:45 01:53 WBC RBC Hgb Hct MCV MCH MCHC RDW Plt Count MPV Neut % (Auto) Lymph % (Auto) [place] % (Auto) Eos % (Auto) Baso % (Auto) Neut # (Auto) Lymph # (Auto) [place] # (Auto) Eos # (Auto) Baso # (Auto) Sodium Potassium Chloride Carbon Dioxide Anion Gap BUN Creatinine Est GFR ( Amer) Est GFR (Non-Af Amer) POC Glucose (mg/dL) 79 Random Glucose Calcium Total Bilirubin AST ALT Alkaline Phosphatase Total Protein Albumin Globulin Albumin/Globulin Ratio Lipase 65 Urine Color Straw Urine Clarity Slighty-cloudy Urine pH 5.0 Ur Specific Valentine 1.020 Urine Protein Negative Urine Glucose (UA) >=500 Urine Ketones 80 Urine Blood Negative Urine Nitrate Negative Urine Bilirubin Negative Urine Urobilinogen 0.2-1.0 Ur Leukocyte Esterase Small Urine RBC (Auto) 4 H Urine Microscopic WBC 3 Ur Squamous Epith Cells 2 Urine Bacteria Rare 06/30/18 06/30/18 06/30/18 02:52 03:46 05:19 WBC RBC Hgb Hct MCV MCH MCHC RDW Plt Count MPV Neut % (Auto) Lymph % (Auto) [place] % (Auto) Eos % (Auto) Baso % (Auto) Neut # (Auto) Lymph # (Auto) [place] # (Auto) Eos # (Auto) Baso # (Auto) Sodium Potassium Chloride Carbon Dioxide Anion Gap BUN Creatinine Est GFR ( Amer) Est GFR (Non-Af Amer) POC Glucose (mg/dL) 141 H 217 H 228 H Random Glucose Calcium Total Bilirubin AST ALT Alkaline Phosphatase Total Protein Albumin Globulin Albumin/Globulin Ratio Lipase Urine Color Urine Clarity Urine pH Ur Specific Valentine Urine Protein Urine Glucose (UA) Urine Ketones Urine Blood Urine Nitrate Urine Bilirubin Urine Urobilinogen Ur Leukocyte Esterase Urine RBC (Auto) Urine Microscopic WBC Ur Squamous Epith Cells Urine Bacteria 06/30/18 06/30/18 06/30/18 06:01 06:45 08:02 WBC RBC Hgb Hct MCV MCH MCHC RDW Plt Count MPV Neut % (Auto) Lymph % (Auto) [place] % (Auto) Eos % (Auto) Baso % (Auto) Neut # (Auto) Lymph # (Auto) [place] # (Auto) Eos # (Auto) Baso # (Auto) Sodium Potassium Chloride Carbon Dioxide Anion Gap BUN Creatinine Est GFR ( Amer) Est GFR (Non-Af Amer) POC Glucose (mg/dL) 148 H 143 H 324 H Random Glucose Calcium Total Bilirubin AST ALT Alkaline Phosphatase Total Protein Albumin Globulin Albumin/Globulin Ratio Lipase Urine Color Urine Clarity Urine pH Ur Specific Valentine Urine Protein Urine Glucose (UA) Urine Ketones Urine Blood Urine Nitrate Urine Bilirubin Urine Urobilinogen Ur Leukocyte Esterase Urine RBC (Auto) Urine Microscopic WBC Ur Squamous Epith Cells Urine Bacteria 06/30/18 09:11 WBC RBC Hgb Hct MCV MCH MCHC RDW Plt Count MPV Neut % (Auto) Lymph % (Auto) [place] % (Auto) Eos % (Auto) Baso % (Auto) Neut # (Auto) Lymph # (Auto) [place] # (Auto) Eos # (Auto) Baso # (Auto) Sodium Potassium Chloride Carbon Dioxide Anion Gap BUN Creatinine Est GFR ( Amer) Est GFR (Non-Af Amer) POC Glucose (mg/dL) 283 H Random Glucose Calcium Total Bilirubin AST ALT Alkaline Phosphatase Total Protein Albumin Globulin Albumin/Globulin Ratio Lipase Urine Color Urine Clarity Urine pH Ur Specific Valentine Urine Protein Urine Glucose (UA) Urine Ketones Urine Blood Urine Nitrate Urine Bilirubin Urine Urobilinogen Ur Leukocyte Esterase Urine RBC (Auto) Urine Microscopic WBC Ur Squamous Epith Cells Urine Bacteria Assessment & Plan - Assessment and Plan (Free Text) Assessment: Pt is a 27 y/o female with hxo f Type 1 DM (on with insulin pump) presenting with complaints of intractable nausea/vomiting and epigastric abdominal pain admitted into ICU for DKA on insulin drip. DKA -Evaluated this morning with Dr. Roy at the bedside. -Patient's DKA may have been precipitated by recent viral illness -Endocrinology following, Dr. Gallego. Recommendations appreciated -C/W Insulin drip until AG resolved -C/W Maintenance fluids w/ D5 and K -Hypoglycemic protocol -Monitor BMP frequently D/W Dr. Roy <Carlos Roy - Last Filed: 07/01/18 10:02> Results - Vital Signs Recent Vital Signs: Last Vital Signs Temp 98.7 F 07/01/18 08:00 Pulse 83 07/01/18 08:00 Resp 13 07/01/18 08:00 BP 114/67 07/01/18 08:00 Pulse Ox 100 07/01/18 08:00 - Labs Result Diagrams: 07/01/18 06:06 07/01/18 04:30 Labs: Laboratory Results - last 24 hr 06/30/18 06/30/18 06/30/18 11:02 12:02 12:50 WBC 5.3 RBC 3.96 Hgb 11.3 L Hct 35.3 MCV 89.0 D MCH 28.6 MCHC 32.2 L RDW 13.2 Plt Count 274 Sodium Potassium Chloride Carbon Dioxide Anion Gap BUN Creatinine Est GFR ( Amer) Est GFR (Non-Af Amer) POC Glucose (mg/dL) 239 H 286 H Random Glucose Calcium Phosphorus Magnesium Total Bilirubin AST ALT Alkaline Phosphatase Total Protein Albumin Globulin Albumin/Globulin Ratio Triglycerides Cholesterol LDL Cholesterol Direct HDL Cholesterol TSH 3rd Generation 06/30/18 06/30/18 06/30/18 12:50 14:14 15:58 WBC RBC Hgb Hct MCV MCH MCHC RDW Plt Count Sodium 138 Potassium 4.0 Chloride 109 H Carbon Dioxide 12 L Anion Gap 21 H BUN 5 L Creatinine 0.5 L Est GFR ( Amer) > 60 Est GFR (Non-Af Amer) > 60 POC Glucose (mg/dL) 179 H 243 H Random Glucose 227 H Calcium 8.4 Phosphorus 2.1 L Magnesium 1.6 Total Bilirubin AST ALT Alkaline Phosphatase Total Protein Albumin Globulin Albumin/Globulin Ratio Triglycerides Cholesterol LDL Cholesterol Direct HDL Cholesterol TSH 3rd Generation 06/30/18 06/30/18 06/30/18 17:56 20:02 22:01 WBC RBC Hgb Hct MCV MCH MCHC RDW Plt Count Sodium Potassium Chloride Carbon Dioxide Anion Gap BUN Creatinine Est GFR ( Amer) Est GFR (Non-Af Amer) POC Glucose (mg/dL) 147 H 451 H* 126 H Random Glucose Calcium Phosphorus Magnesium Total Bilirubin AST ALT Alkaline Phosphatase Total Protein Albumin Globulin Albumin/Globulin Ratio Triglycerides Cholesterol LDL Cholesterol Direct HDL Cholesterol TSH 3rd Generation 06/30/18 07/01/18 07/01/18 23:58 01:54 03:53 WBC RBC Hgb Hct MCV MCH MCHC RDW Plt Count Sodium Potassium Chloride Carbon Dioxide Anion Gap BUN Creatinine Est GFR ( Amer) Est GFR (Non-Af Amer) POC Glucose (mg/dL) 333 H 147 H 317 H Random Glucose Calcium Phosphorus Magnesium Total Bilirubin AST ALT Alkaline Phosphatase Total Protein Albumin Globulin Albumin/Globulin Ratio Triglycerides Cholesterol LDL Cholesterol Direct HDL Cholesterol TSH 3rd Generation 07/01/18 07/01/18 07/01/18 04:30 06:06 06:06 WBC 8.7 D RBC 3.98 Hgb 11.3 L Hct 34.2 MCV 86.1 D MCH 28.4 MCHC 33.0 RDW 13.5 Plt Count 261 Sodium 139 Potassium 2.9 L Chloride 109 H Carbon Dioxide 15 L Anion Gap 18 BUN 12 Creatinine 0.5 L Est GFR ( Amer) > 60 Est GFR (Non-Af Amer) > 60 POC Glucose (mg/dL) 105 Random Glucose 274 H Calcium 8.1 L Phosphorus 2.5 Magnesium 1.5 L Total Bilirubin 0.1 L AST 28 ALT 20 Alkaline Phosphatase 80 Total Protein 6.1 L Albumin 3.2 L D Globulin 2.8 Albumin/Globulin Ratio 1.1 Triglycerides 150 H Cholesterol 172 LDL Cholesterol Direct 132 H HDL Cholesterol 48 TSH 3rd Generation 3.12 07/01/18 07/01/18 08:01 08:03 WBC RBC Hgb Hct MCV MCH MCHC RDW Plt Count Sodium Potassium Chloride Carbon Dioxide Anion Gap BUN Creatinine Est GFR ( Amer) Est GFR (Non-Af Amer) POC Glucose (mg/dL) 292 H 272 H Random Glucose Calcium Phosphorus Magnesium Total Bilirubin AST ALT Alkaline Phosphatase Total Protein Albumin Globulin Albumin/Globulin Ratio Triglycerides Cholesterol LDL Cholesterol Direct HDL Cholesterol TSH 3rd Generation Assessment & Plan - Assessment and Plan (Free Text) Assessment: Patient was personally seen and examined by me in rounds with residents. Available labs and diagnostic data reviewed. Case, Patient's condition and management plan discussed with residents in rounds. Agree with resident's progress note. Plan: As ordered.
[2018-06-30 13:22] LABS: HEMOGLOBIN 11.3 g/dL (12.0-16.0); MEAN CORPUSCULAR HEMOGLOBIN 28.6 pg (27.0-31.0); MEAN CORPUSCULAR HGB CONC 32.2 g/dL (33.0-37.0); RBC 3.96 Mil/uL (3.80-5.20); RED CELL DISTRIBUTION WIDTH 13.2 % (11.5-14.5); WHITE BLOOD COUNT 5.3 K/uL (4.8-10.8)
[2018-06-30 13:32] LABS: BLOOD UREA NITROGEN 5 mg/dl (7-17); CALCIUM 8.4 mg/dL (8.4-10.2); GFR NON-AFRICAN AMERICAN > 60
[2018-06-30] MEDS: Sodium Chloride 0.9% 1,000 ML IV SCH ×2 (15:20→21:15)
[2018-07-01] MEDS: Sodium Chloride 0.9% 1,000 ML IV SCH ×2 (02:30→06:15)
[2018-07-01 06:00] LABS: LDL CHOLESTEROL 132 mg/dL (0-129)
[2018-07-01 06:09] LABS: HEMOGLOBIN 11.3 g/dL (12.0-16.0); MEAN CELL VOLUME 86.1 fl (81.0-99.0); MEAN CORPUSCULAR HEMOGLOBIN 28.4 pg (27.0-31.0); RBC 3.98 Mil/uL (3.80-5.20); RED CELL DISTRIBUTION WIDTH 13.5 % (11.5-14.5); WHITE BLOOD COUNT 8.7 K/uL (4.8-10.8)
[2018-07-01 06:13] LABS: ALB/GLOB RATIO 1.1 (1.0-2.1); ALBUMIN 3.2 g/dL (3.5-5.0); ALT/SGPT 20 U/L (9-52); AST/SGOT 28 U/L (14-36); BLOOD UREA NITROGEN 12 mg/dl (7-17); CALCIUM 8.1 mg/dL (8.4-10.2); GFR NON-AFRICAN AMERICAN > 60; HDL CHOLESTEROL 48 MG/DL (30-70)
[2018-07-01] MEDS ORDERED: Potassium Chloride 20 mEq ER Tab PO ONE (07:15)
[2018-07-01] MEDS ORDERED: Magnesium Sulfate 2 gm/50 ml 2 GM/50 ML BAG IVPB ONE (08:00)
[2018-07-01] MEDS: Enoxaparin 40 mg Syringe SC SCH (08:39)
[2018-07-01] MEDS: Potassium CL 10mEq/100ml 100 ML IVPB SCH ×4 (09:03→17:20)
[2018-07-01] MEDS ORDERED: Sodium Chloride 0.9% 1,000 ML IV SCH (10:45)
[2018-07-01] MEDS ORDERED: Insulin Lispro (humaLOG) 100 Units/ml Inj SC SCH (11:30)
--- NOTE | 2018-07-01 13:01 | CP.CCUPN ---
CCU Subjective - Physician Review Subjective (Free Text): C/o nausea, denies any abdominal pain, otherwise neuromental status intact, on intermittent insulin infusion and NSS at 200ml/hr as per Endocrinology. Denies any cough, chills, sweats. Other vitals and I/O's reviewed. Afebrile, no fever spikes overnight, SBP was 130s, HR 100, RR 13, 100% SPO2 on RA. ROS: No other pertinent negs or positives on 10+ system review. Allergies: NKDA PMSFH: All other Nursing and physician documentation reviewed to date; no new pertinent info noted relevant to current medical problems. EXAM- HEENT: no icterus, no gaze preference, Pupils 3 mm and reactive, tongue dry NECK: no JVD visible, supple, carotids equal upstroke bilat/no bruit CHEST: decreased BS at the bases, no wheezes audible HEART: regular, distant, S1S2, no rubs ABD: soft, no distension, no focal tenderness, no tympany, no guarding, no organomegaly, BS hypoactive. EXT: no LE edema, no mottling; no calf tenderness or palpable cords, distal pulses intact and symmetrical, no cyanosis, no mottling. NEURO: no focal motor deficits, sensory intact, SKIN: no rashes, warm and dry LABS: WBC= 8.7 HGB= 11.3 PLTs= 261K Na= 139 K= 2.9 CL= 109 HCO3= 15 BUN/Cr= 12/0.5 BS= 224 IMPRESSION / MAJOR PROBLEMS NOW: 1. DKA 2. Viral URI PLAN: 1. IV insulin drip and fluids till serum bicarb normalizes. May need more fluids with supplemental dextrose. 2. Magnesium supplementation, K repletion already ordered.
--- NOTE | 2018-07-01 16:25 | PN ---
DATE: 07/01/2018 ENDO FOLLOWUP NOTE LOCATION: In room 421 ICU. SUBJECTIVE: This is a 27-year-old female with recent uncontrolled type 1 insulin-dependent diabetes, now being followed closely for metabolic management. Her glycemic levels are fluctuating but improved and the glucose values are now in extremes of glycemic fluctuations ranging from 72-272 and 292 and 303 mg/dL. Her A1c is 10.1% and clearly indicative of suboptimal metabolic control of her diabetic condition even prior to this admission. LABORATORY DATA: Her latest chemistry showed a BUN of 12, sodium 139, potassium 2.9, chloride 109, CO2 of 15, glucose 274 and creatinine 0.5. Her TSH is 3.12. ASSESSMENT Is a 27-year-old female with uncontrolled and decompensated type 1 insulin-dependent diabetes presenting here with marked hyperglycemic accelerations and supervening diabetic ketoacidosis and dehydration related to very poor adherence and compliance to her insulin pump as provided by [employer]. PLAN OF MANAGEMENT: We will monitor. We will discontinue the insulin drip infusion this morning and switch her over now to a more physiologic basal and bolus insulin drug combination as ordered. We will obtain serial chemistries and supplement accordingly as needed. We will continue the normal saline running at 150 mL/hour as ordered and add potassium supplementation because of supervening expected hypokalemia. We will add basal insulin with Levemir at 12 units subcu at bedtime daily to start tonight. We will also add Humalog given as 6 units subcu t.i.d. before meals as ordered. We will obtain serial chemistries and supplement accordingly as needed. We will follow. Monet Gallego MD
[2018-07-01] MEDS: Insulin Lispro (humaLOG) 100 Units/ml Inj SC SCH ×3 (16:29→21:46)
[2018-07-01] MEDS: Insulin Detemir 100 Units/ml Inj SC SCH (21:47)
[2018-07-02 07:09] LABS: HEMOGLOBIN 11.2 g/dL (12.0-16.0); MEAN CELL VOLUME 85.8 fl (81.0-99.0); MEAN CORPUSCULAR HEMOGLOBIN 28.6 pg (27.0-31.0); MEAN CORPUSCULAR HGB CONC 33.4 g/dL (33.0-37.0); RBC 3.93 Mil/uL (3.80-5.20); RED CELL DISTRIBUTION WIDTH 13.6 % (11.5-14.5); WHITE BLOOD COUNT 6.3 K/uL (4.8-10.8)
[2018-07-02 08:01] LABS: ALB/GLOB RATIO 1.2 (1.0-2.1); ALBUMIN 3.4 g/dL (3.5-5.0); ALT/SGPT 18 U/L (9-52); AST/SGOT 25 U/L (14-36); BLOOD UREA NITROGEN 9 mg/dl (7-17); CALCIUM 8.7 mg/dL (8.4-10.2); GFR NON-AFRICAN AMERICAN > 60
[2018-07-02] MEDS: Insulin Lispro (humaLOG) 100 Units/ml Inj SC SCH ×7 (08:27→22:42)
[2018-07-02] MEDS: Enoxaparin 40 mg Syringe SC SCH (08:27)
--- NOTE | 2018-07-02 12:05 | PN ---
DATE: 07/02/2018 SUBJECTIVE: The patient seen and examined. Interims events noted. The patient seen with supervisory cbp officer, nurse . The patient now complained of left vagina pink and swelling and discharge. Denies any chest pain. No shortness of breath. PHYSICAL EXAMINATION GENERAL: The patient is in no acute distress.. VITAL SIGNS: Stable. HEENT: S1, S2 normal and regular. LUNGS Good bilateral air exchange. ABDOMEN: Soft. Nontender. : The patient has left upper labia Bartholin cyst, about 2 cm abscess, very tender. No active discharge that is according to patient. The patient had discharge before. EXTREMITIES: No edema. No calf swelling. No tenderness. No acute ischemia. CENTRAL NERVOUS SYSTEM: Essentially unchanged. DIAGNOSTIC DATA: Available diagnostic data reviewed. Telemetry monitoring does not show significant arrhythmias. LABORATORY DATA: Bicarb remains 18. Anion gap was decreasing. ASSESSMENT AND PLAN: Overall, patient is clinically improving. The patient has a new finding of a left vaginal abscess. Plan as ordered. Carlos Roy MD
--- NOTE | 2018-07-02 12:53 | PN ---
DATE: 07/02/2018 CRITICAL CARE PROGRESS NOTE LOCATION: The patient is in ICU, bed 421. TIME SPENT: 35 minutes. SUBJECTIVE: The patient is seen and evaluated at the bedside. A 27-year-old female with type 1 diabetes mellitus, multiple admissions for diabetic ketoacidosis, admitted through emergency room on 06/29/2018, with a complaint of shortness of breath. The patient was noted to be in DK, seen by Endocrinology consult, Dr. Monet Gallego, on insulin drip intermittently and IV fluid. Complaining of pain at the vaginal wall area, noted to have pus discharge from the anterior vaginal wall. Remains afebrile. PHYSICAL EXAMINATION: VITAL SIGNS: Temperature 98.4, heart rate 98, blood pressure 122/87, mean arterial pressure 98, respiratory rate 12, saturation 99%. Intake 3048, output not recorded. HEAD, EYES, EARS ,NOSE, AND THROAT: Pupils are reactive. Conjunctiva pink. Sclera white. NECK: Supple. Trachea is central. CHEST: Bilateral breath sounds. Clear to auscultation. HEART: Rhythm regular. S1 and S2 normal. ABDOMEN: Bowel sounds are present and soft. Vagina wall with induration with purulent discharge. NEUROLOGIC: Nonfocal. LABORATORY DATA: WBC 6.3, hemoglobin 11.2, hematocrit 33.7, platelet count 245. SMA-7: Sodium 138, potassium 3, chloride 106, CO2 18. Blood urea nitrogen 9, creatinine 0.4, random glucose 112, calcium 8.7, phosphorus 2.6, magnesium 1.9, total bilirubin 0.1, AST 25, ALT 18, alkaline phosphatase 91, total protein 6.2, albumin 3.4. Urinalysis: Leuko esterase small. Microscopic wbc 3, urine bacteria rare. CURRENT MEDICATIONS: Lovenox 40 subcu daily, Levemir 12 units subcu at bedtime, Accu-Chek, lispro insulin 6 units at breakfast and at bedtime, Accu-Check with regular insulin coverage. IMPRESSION: Status post diabetic ketoacidosis, uncontrolled hyperglycemia, recurrent admissions for the same, possible infected Bartholin cyst,abscess. We will obtain Infectious Disease consult to treat the infected Bartholin cyst. Surgical consult as needed. Doxcyclin and Flagly Donnie Ramos MD [facility] # [id number]
[2018-07-02] MEDS ORDERED: Sodium Chloride 0.9% 1,000 ML IV SCH (13:00)
--- NOTE | 2018-07-02 13:09 | PN ---
DATE: 07/02/2018 LOCATION: ICU room 421. SUBJECTIVE: This is a 27-year-old female with recent uncontrolled type 1 insulin-dependent diabetes, presenting here with diabetic ketoacidosis and dehydration and is now improving clinically and metabolically as noted thereof. LABORATORY DATA: Her latest chemistries today showed a BUN of 9, sodium 138, potassium 3.9, chloride 106, CO2 is 18, glucose is 112 and creatinine is 0.4. Her glucose values have ranged from 75 to 100 and 306 at bedtime last night. PLAN: So, at this time, because of the variability of her oral intake, we will continue the modified insulin regimen as given with Humalog given as 6 units t.i.d. before meals as ordered. We will continue Levemir at 12 units subcutaneous at bedtime daily as given. We will also continue the low-dose correction scale using Humalog insulin as ordered. We will obtain serial chemistries and supplement accordingly as needed. We will also continue the IV hydration with half-normal saline running at 125 mL per hour as the CO2 is only 18 and would like to resolve the acidosis prior to discontinuing the IV hydration as ordered. We will obtain serial chemistries and supplement accordingly as needed. We will follow up. Monet Gallego MD
[2018-07-02 15:52] VITALS: O2SAT 100
--- NOTE | 2018-07-02 16:35 | CP.PCM.PN ---
Subjective - Date & Time of Evaluation Date of Evaluation: 07/02/18 Time of Evaluation: 16:35 - Subjective Subjective: I D NOTE PATIENT EXAMINED ,EMR REVIEWED FULL CONSULT DICTATED R/O BARTHOLIN GLAND CYST R/O HIDROADENITIS CULTURES ORDERED HAVE ADDED DOXYCYCLINE /FLAGYL TO RX CONSIDER BUFFING WHEEL RAKER CONSULT Objective - Vital Signs/Intake and Output Vital Signs (last 24 hours): Temp Pulse Resp BP Pulse Ox 98.6 F 99 H 22 124/77 100 07/02/18 16:00 07/02/18 16:00 07/02/18 16:00 07/02/18 16:00 07/02/18 14:00 Intake and Output: 07/02/18 07/02/18 06:59 18:59 Intake Total 1400 Balance 1400 - Medications Medications: Current Medications Dextrose (Dextrose 50% Inj) 0 ml IV STAT PRN; Protocol PRN Reason: Hypoglycemia Protocol Dextrose (Glutose 15) 0 gm PO ONCE PRN; Protocol PRN Reason: Hypoglycemia Protocol Enoxaparin Sodium (Lovenox) 40 mg SC DAILY LANETTE; Protocol Last Admin: 07/02/18 08:27 Dose: 40 mg Glucagon (Glucagen Diagnostic Kit) 0 mg IM STAT PRN; Protocol PRN Reason: Hypoglycemia Protocol Ceftriaxone Sodium 1 gm/ (Sodium Chloride) 100 mls @ 100 mls/hr IVPB DAILY LANETTE; Protocol Last Admin: 07/02/18 12:27 Dose: 100 mls/hr Sodium Chloride (Sodium Chloride 0.9%) 1,000 mls @ 100 mls/hr IV .Q10H LANETTE Last Admin: 07/02/18 13:00 Dose: 100 mls/hr Doxycycline Hyclate 100 mg/ (Sodium Chloride) 100 mls @ 100 mls/hr IVPB Q12 [facility]ETTE; Protocol Metronidazole (Flagyl 500mg/100ml Ns) 100 mls @ 100 mls/hr IVPB Q8 [facility]ETTE; Protocol Insulin Detemir (Levemir) 12 units SC HS [facility]ETTE Last Admin: 07/01/18 21:47 Dose: 12 units Insulin Human Lispro (Humalog) 6 units SC AC [facility]ETTE Last Admin: 07/02/18 12:26 Dose: 6 unit Insulin Human Lispro (Humalog) 0 units SC ACHS [facility]ETTE Last Admin: 07/02/18 12:25 Dose: Not Given - Labs Labs: 07/02/18 05:30 07/02/18 05:30
[2018-07-02] MEDS: metroNIDAZOLE 500mg/100ml NS 100 ML IVPB SCH (17:36)
[2018-07-02] MEDS: Insulin Detemir 100 Units/ml Inj SC SCH (22:43)
[2018-07-03] MEDS: metroNIDAZOLE 500mg/100ml NS 100 ML IVPB SCH (01:17)
[2018-07-03 05:56] LABS: HEMOGLOBIN 10.8 g/dL (12.0-16.0); MEAN CELL VOLUME 85.6 fl (81.0-99.0); MEAN CORPUSCULAR HEMOGLOBIN 28.6 pg (27.0-31.0); MEAN CORPUSCULAR HGB CONC 33.4 g/dL (33.0-37.0); RBC 3.77 Mil/uL (3.80-5.20); WHITE BLOOD COUNT 6.3 K/uL (4.8-10.8)
[2018-07-03 06:25] LABS: ALBUMIN 3.1 g/dL (3.5-5.0); ALT/SGPT 16 U/L (9-52); AST/SGOT 23 U/L (14-36); BLOOD UREA NITROGEN 11 mg/dl (7-17); CALCIUM 8.8 mg/dL (8.4-10.2); GFR NON-AFRICAN AMERICAN > 60
[2018-07-03] MEDS: Insulin Lispro (humaLOG) 100 Units/ml Inj SC SCH ×4 (06:58→13:39)
[2018-07-03 07:22] VITALS: RESP 17
[2018-07-03 08:26] VITALS: BP 122/73; PULSE 97; TEMP 98.5
[2018-07-03] MEDS: Enoxaparin 40 mg Syringe SC SCH (08:55)
--- NOTE | 2018-07-03 15:44 | PN ---
DATE: 07/03/2018 CRITICAL CARE PROGRESS NOTE LOCATION: ICU, Bed #421. TIME SPENT: 25 minutes. SUBJECTIVE: The patient is seen and evaluated at the bedside. This is a 27-year-old female with type one diabetes mellitus, multiple admissions for diabetic ketoacidosis, admitted through emergency room on 06/29/2018 with complaining of shortness of breath, noted to be in DKA seen by Endocrinology consult, Dr. Monet Gallego, on insulin drip intermittently and with IV fluid improved and responded with resolution of DKA. Noted to have pain in the vaginal wall area, suspected Bartholin's cyst with infection and drainage; seen by ID consult, currently on vancomycin, doxycycline and Flagyl and pending culture for GC and Chlamydia Overnight uneventful. PHYSICAL EXAMINATION: VITAL SIGNS: Temperature 98, heart rate of 97, blood pressure , respiratory rate 70. HEAD, EYES, EARS, NOSE AND THROAT: Unremarkable. CHEST: Bilateral breath sounds clear to auscultation. HEART: Rhythm regular. S1 and S2 normal. ABDOMEN: Bowel sounds present. Soft. Liver and spleen not palpable. Bladder not distended. EXTREMITIES: Unremarkable. NEUROLOGIC: Nonfocal. CURRENT MEDICATIONS: Ceftriaxone 1 g IV daily, Flagyl 500 mg IV every 8 hours, doxycycline 100 mg IV every 12 hours, Levemir at 12 units subcutaneous at bedtime. Lispro insulin 6 units subcutaneous before meals and at bedtime, Accu-Chek with regular insulin coverage, IV fluid normal saline 100 ml/hour. LABORATORY DATA: WBC 6.03, hemoglobin 10.8, hematocrit 32.3, platelet count 251. SMA-7; sodium 138, potassium 3.8, chloride 103, CO2 of 23, blood urea nitrogen 11, creatinine 0.5, random glucose 144, calcium 8.8, phosphorus 3.3, magnesium 1.9, total bilirubin 0.2, AST 23, ALT 16, alkaline phosphatase 100, albumin 3.1. Urinalysis; RBC 4, WBC 3. Microbiology, nasal smear MRSA negative. Culture for GC, Chlamydia and urine culture pending. Status post DKA improved with hydration and insulin drip, switched over to bolus with basal and meal time insulin and coverage gap. Seen by ID consult, on vancomycin, doxycycline and Flagyl. Will recommend outpatient follow up with the PRODUCT CRAFTSMAN to assess the Bartholin cyst. Donnie Ramos MD [facility] # [id number]
--- NOTE | 2018-07-03 18:27 | PN ---
DATE: 07/03/2018 ENDOCRINOLOGY FOLLOWUP NOTE LOCATION: In ICU, room 421. SUBJECTIVE: This is a 27-year-old female with recent uncontrolled type 1 insulin-dependent diabetes, presenting here with intractable vomiting and supervening diabetic ketoacidosis and dehydration, and has since then improved clinically and metabolically as noted thereof. Her glucose levels overnight have ranged from 109 to 144 and 218 mg/dL. LABORATORY DATA: Her chemistry showed a BUN of 11, sodium 138, potassium 3.8, chloride 103, CO2 of 24, glucose 113, and creatinine 0.5. ASSESSMENT AND PLAN: So at this time, we will finish off her intravenous hydration as given and obtain serial chemistries accordingly. We will also continue the same basal and bolus insulin drug regimen to allow for dose equilibration and keep her on the Humalog given as 6 units three times a day before meals as ordered. We will continue the Levemir given as 12 units subcutaneous at bedtime daily as given. Continue also the low-dose correction scale using Humalog insulin as ordered. She has been asked to resume her home insulin pump using the Medtronic insulin pump as soon as her supplies arrive from the company. The imperative need for tighter metabolic control cannot, but be overemphasized with the patient and she understands the implications of very poor metabolic control and the future microvascular and macrovascular complications thereof. The patient has actually not been following up with her primary physician nor with me for diabetes management on the outpatient despite all the constant reminders to the patient. I actually notified the [employer] pump specialist, Ms. Suzanna Colby regarding the need for closer followup with her by the pump specialist because of the use of the Medtronic insulin pump by the patient. We will follow. Mnoet Gallego MD
--- NOTE | 2018-07-04 09:15 | PN ---
DATE: 07/03/2018 SUBJECTIVE: The patient seen and examined. Interim events noted. Consults noted and appreciated. Endocrinology Human Resources Officer, Infectious Disease consults and intervention noted and appreciated. The patient remains in intensive care unit. The patient still complains of vaginal discomfort. No chest pain. No shortness of breath, but overall the patient is feeling better. PHYSICAL EXAMINATION: GENERAL: The patient is in no acute distress. VITAL SIGNS: Stable. HEART: The patient's heart rate still remains tachycardic at 110. Heart exam S1 and S2 tachycardic. LUNGS: Good bilateral air exchange. ABDOMEN: Soft and nontender. EXTERNAL VAGINAL: Exam is deferred at this time. EXTREMITIES: No edema. No calf swelling. No tenderness. No acute ischemia. CENTRAL NERVOUS SYSTEM: Essentially unchanged. DIAGNOSTIC DATA: Available diagnostic data reviewed Accu-Cheks are better, in 200 range, today's blood tests are pending. ASSESSMENT AND PLAN: Overall, the patient is clinically stable. Plan as ordered. Carlos Roy MD
== END 2018-07-03 14:34 | disposition home or self-care (01) | DRG 295 ==
LOC: H.ER 22:43 → H.ERHOLD 23:56 → H.ICU/CCU 06-30 03:09
PROVIDERS: ADMIT Internal Medicine; ATTEND Internal Medicine
DX: E10.10 Type 1 diabetes mellitus with ketoacidosis without coma (principal); E87.6 Hypokalemia; E86.0 Dehydration; J44.9 Chronic obstructive pulmonary disease, unspecified; E10.65 Type 1 diabetes mellitus with hyperglycemia; Z79.4 Long term (current) use of insulin; Z91.19 Patient's noncompliance with other medical treatment and regimen; F17.210 Nicotine dependence, cigarettes, uncomplicated; I10 Essential (primary) hypertension; N76.0 Acute vaginitis; Z82.49 Family history of ischemic heart disease and other diseases of the circulatory system; Z83.3 Family history of diabetes mellitus; Z87.442 Personal history of urinary calculi; J40 Bronchitis, not specified as acute or chronic

== ENCOUNTER 2018-09-28 21:37 | Inpatient (IN) | payer OTHER ==
[2018-09-28 21:37] VITALS: BMI 23.9
[2018-09-28] MEDS ORDERED: Sodium Chloride 0.9% 1,000 ML IV STA (23:21)
--- NOTE | 2018-09-28 23:38 | ED PDOC ---
HPI: Abdomen Time Seen by Provider: 09/28/18 23:08 Chief Complaint (Nursing): Abdominal Pain Chief Complaint (Provider): Abdominal Pain History Per: Patient History/Exam Limitations: no limitations Onset/Duration Of Symptoms: Days (x4) Associated Symptoms: Nausea, Vomiting, Diarrhea Additional Complaint(s): 27 y/o female with Type I diabetes presents to the ED with x4 days of vomiting, abdominal pain, diarrhea, and weakness. Patient states that 3 days ago she ate some [employer] at home and about an hour later developed vomiting and diarrhea. Patient states that since then she has been unable to keep down any food or drink. During this time patient admits that she has not been checking her blood sugar or taking insulin. She states she has no sick contacts and denies any fever. Past Medical History Reviewed: Historical Data, Nursing Documentation, Vital Signs Vital Signs: Last Vital Signs Temp 98.2 F 09/28/18 21:44 Pulse 102 H 09/28/18 21:44 Resp 16 09/28/18 21:44 BP 110/77 09/28/18 21:44 Pulse Ox 98 09/28/18 21:44 - Medical History PMH: Bronchitis, Diabetes (type 1) Denies: Anxiety, Bipolar Disorder, Depression, HIV, Paranoia, Post Traumatic Stress Disorder, Chronic Kidney Disease, Schizophrenia - Surgical History Surgical History: (x2) - Family History Family History: States: Hypertension - Immunization History Hx Tetanus Toxoid Vaccination: No Hx Influenza Vaccination: No Hx Pneumococcal Vaccination: No - Home Medications Home Medications: Ambulatory Orders Medication Instructions Recorded Insulin Lispro [humALOG] See Protocol SC TID 09/29/18 - Allergies Allergies/Adverse Reactions: Allergies Allergy/AdvReac Type Severity Reaction Status Date / Time No Known Allergies Allergy Verified 09/28/18 21:44 Review of Systems ROS Statement: Except As Marked, All Systems Reviewed And Found Negative Constitutional: Negative for: Fever Gastrointestinal: Positive for: Nausea, Vomiting, Abdominal Pain Physical Exam - Reviewed Nursing Documentation Reviewed: Yes Vital Signs Reviewed: Yes - Physical Exam Appears: Positive for: No Acute Distress (Tired) Head Exam: Positive for: ATRAUMATIC, NORMAL INSPECTION, NORMOCEPHALIC Skin: Positive for: Normal Color, Warm, DRY Eye Exam: Positive for: EOMI, Normal appearance, PERRL ENT: Positive for: Normal ENT Inspection Neck: Positive for: Normal, Painless ROM Cardiovascular/Chest: Positive for: Regular Rate, Rhythm. Negative for: Murmur Respiratory: Positive for: Normal Breath Sounds. Negative for: Respiratory Distress Gastrointestinal/Abdominal: Positive for: Tenderness (diffuse). Negative for: Guarding Back: Positive for: Normal Inspection Extremity: Positive for: Normal ROM. Negative for: Pedal Edema, Deformity Neurological/Psych: Positive for: Awake, Alert, Normal Tone. Negative for: Motor/Sensory Deficits - Laboratory Results Result Diagrams: 09/29/18 00:10 09/29/18 00:10 - ECG O2 Sat by Pulse Oximetry: 98 (RA) Pulse Ox Interpretation: Normal Medical Decision Making Medical Decision Making: Time: 23:21 MDM: Workup for gastroenteritis/dehydration. Elevated glucose on triage, workup for DKA * IV Fluids * Will give Insulin once potassium levels are back * Possible admission 00:23 pH is 7.39, lactate is 6.2, pCO2 is 29. Starting second L of fluids. Will give Insulin bolus and potassium 4.0. Pt with improved glucose and no need for insulin drip. Pt to be admitted to Telemetry under Dr. Vasquez/service. Scribe Attestation: Documented by Shivam Villeda, acting as a scribe for Aria Sanders MD. Provider Scribe Attestation: All medical record entries made by the Scribe were at my direction and personally dictated by me. I have reviewed the chart and agree that the record accurately reflects my personal performance of the history, physical exam, medical decision making, and the department course for this patient. I have also personally directed, reviewed, and agree with the discharge instructions and disposition. Disposition - Clinical Impression Clinical Impression: Diabetes mellitus, Hyperglycemia, Diabetic complication, Type 1 diabetes - Disposition Disposition Time: 01:29 Condition: GUARDED
[2018-09-29 00:22] LABS: VENOUS BLOOD GAS PCO2 29 mmHg (40-60); VENOUS BLOOD GAS PO2 54 mm/Hg (30-55); VENOUS BLOOD PH 7.39 (7.32-7.43)
[2018-09-29] MEDS ORDERED: Sodium Chloride 0.9% 1,000 ML IV STA ×2 (00:23→00:48)
[2018-09-29] MEDS ORDERED: Insulin Regular 100 units/ml SC STA (00:24)
[2018-09-29 00:28] LABS: BASO % 0.8 % (0.0-2.0); EOS % 1.3 % (0.0-4.0); LYMPH % 36.9 % (20.0-40.0); MEAN CELL VOLUME 88.7 fl (81.0-99.0); MEAN CORPUSCULAR HEMOGLOBIN 29.4 pg (27.0-31.0); MEAN CORPUSCULAR HGB CONC 33.1 g/dL (33.0-37.0); MEAN PLATELET VOLUME 7.3 fl (7.2-11.7); MONO # 0.3 K/uL (0.0-0.8); MONO % 10.5 % (0.0-10.0); NEUT # 1.4 K/uL (1.8-7.0); NEUT % 50.5 % (50.0-75.0); NRBC % 0.1 % (0.0-0.0); RBC 4.43 Mil/uL (3.80-5.20); RED CELL DISTRIBUTION WIDTH 13.4 % (11.5-14.5); WHITE BLOOD COUNT 2.8 K/uL (4.8-10.8)
[2018-09-29 00:39] LABS: BLOOD UREA NITROGEN 13 mg/dl (7-17); CALCIUM 9.6 mg/dL (8.4-10.2); GFR NON-AFRICAN AMERICAN > 60; LIPASE 36 U/L (23-300)
[2018-09-29 00:43] LABS: ALB/GLOB RATIO 1.2 (1.0-2.1); ALBUMIN 4.5 g/dL (3.5-5.0); ALT/SGPT 34 U/L (9-52); AST/SGOT 72 U/L (14-36)
[2018-09-29] MEDS ORDERED: Insulin Regular 100 units/ml ONE (00:55)
[2018-09-29] MEDS: Sodium Chloride 0.9% 1,000 ML IV SCH ×2 (06:23→17:02)
[2018-09-29 10:07] LABS: BASO % 1.3 % (0.0-2.0); EOS # 0.1 K/uL (0.0-0.7); EOS % 3.6 % (0.0-4.0); HEMOGLOBIN 12.5 g/dL (12.0-16.0); LYMPH # 1.1 K/uL (1.0-4.3); LYMPH % 45.8 % (20.0-40.0); MEAN CELL VOLUME 89.1 fl (81.0-99.0); MEAN CORPUSCULAR HEMOGLOBIN 29.4 pg (27.0-31.0); MEAN PLATELET VOLUME 7.3 fl (7.2-11.7); MONO # 0.3 K/uL (0.0-0.8); MONO % 11.3 % (0.0-10.0); NEUT # 0.9 K/uL (1.8-7.0); NRBC % 0.2 % (0.0-0.0); RBC 4.25 Mil/uL (3.80-5.20); RED CELL DISTRIBUTION WIDTH 13.3 % (11.5-14.5); WHITE BLOOD COUNT 2.5 K/uL (4.8-10.8)
[2018-09-29] MEDS ORDERED: Insulin Lispro (humaLOG) 100 Units/ml Inj SC STA (10:55)
[2018-09-29 10:57] LABS: ALB/GLOB RATIO 1.3 (1.0-2.1); ALBUMIN 3.8 g/dL (3.5-5.0); ALT/SGPT 41 U/L (9-52); AST/SGOT 47 U/L (14-36); BLOOD UREA NITROGEN 11 mg/dl (7-17); CALCIUM 8.8 mg/dL (8.4-10.2); GFR NON-AFRICAN AMERICAN > 60; HDL CHOLESTEROL 39 MG/DL (30-70); LDL CHOLESTEROL 74 mg/dL (0-129)
--- NOTE | 2018-09-29 15:44 | CP.PCM.HP ---
History of Present Illness - History of Present Illness History of Present Illness: CC: Abdominal pain. 27 y/o F, PMHx: DKA with multiple hospital admission for this condition, Hx DMI, Bronchitis. 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 Worsening symptoms: Unable to keep down any food, not in compliance with her insulin regimen. Found with increased BS 428, ( Random glucose today 553) Aggravated factor: Food. Pt denied: Fever, chills, urinary symptoms, CP, palpitations, syncope, SOB, cough, sick contact, recent travel out of [facility]. Present on Admission - Present on Admission Any Indicators Present on Admission: Yes History of Uncontrolled Diabetes: Yes Review of Systems - Constitutional Constitutional: Weakness - EENT Eyes: Other (negative) Ears: Other (negative) Nose/Mouth/Throat: Other (negative) - Cardiovascular Cardiovascular: Other (negative) - Respiratory Respiratory: Other (negative) - Gastrointestinal Gastrointestinal: Abdominal Pain, Diarrhea, Nausea, Vomiting - Genitourinary Genitourinary: Other (negative) - Musculoskeletal Musculoskeletal: Other (negative) - Integumentary Integumentary: Other (negative) - Neurological Neurological: Other (negative) - Psychiatric Psychiatric: Other - Endocrine Endocrine: Other (negative) - Hematologic/Lymphatic Hematologic: Other (negative) Past Patient History - Infectious Disease Hx of Infectious Diseases: None - Tetanus Immunizations Tetanus Immunization: Unknown - Past Medical History & Family History Past Medical History?: Yes Pertinent Family History: Unknown - Past Social History Smoking Status: Light Smoker < 10 Cigarettes Daily Alcohol: None Drugs: Denies Home Situation {Lives}: With Family - CARDIAC Hx Cardiac Disorders: No - PULMONARY Hx Respiratory Disorders: Yes Hx Bronchitis: Yes - NEUROLOGICAL Hx Neurological Disorder: No - HEENT Hx HEENT Problems: No - RENAL Hx Chronic Kidney Disease: No - ENDOCRINE/METABOLIC Hx Endocrine Disorders: Yes (DKA) Hx Diabetes Mellitus Type 1: Yes - HEMATOLOGICAL/ONCOLOGICAL Hx Blood Disorders: No Hx Human Immunodeficiency Virus (HIV): No - INTEGUMENTARY Hx Dermatological Problems: No - MUSCULOSKELETAL/RHEUMATOLOGICAL Hx Musculoskeletal Disorders: No - GASTROINTESTINAL Hx Gastrointestinal Disorders: No - GENITOURINARY/GYNECOLOGICAL Hx Genitourinary Disorders: No - PSYCHIATRIC Hx Psychophysiologic Disorder: No Hx Anxiety: No Hx Bipolar Disorder: No Hx Depression: No Hx Paranoia: No Hx Post Traumatic Stress Disorder: No Hx Schizophrenia: No - SURGICAL HISTORY Hx Surgeries: Yes Hx Section: Yes (x2) - ANESTHESIA Hx Anesthesia: Yes Hx Anesthesia Reactions: No Hx Malignant Hyperthermia: No Meds Allergies/Adverse Reactions: Allergies Allergy/AdvReac Type Severity Reaction Status Date / Time No Known Allergies Allergy Verified 09/28/18 21:44 Physical Exam - Constitutional Appears: No Acute Distress - Head Exam Head Exam: NORMAL INSPECTION - Eye Exam Eye Exam: PERRL - ENT Exam ENT Exam: Normal Exam - Neck Exam Neck exam: Positive for: Normal Inspection - Respiratory Exam Respiratory Exam: NORMAL BREATHING PATTERN - Cardiovascular Exam Cardiovascular Exam: REGULAR RHYTHM - GI/Abdominal Exam GI & Abdominal Exam: Hyperactive Bowel Sounds, Soft, Tenderness (diffused) - Extremities Exam Extremities exam: Positive for: normal inspection - Back Exam Back exam: NORMAL INSPECTION - Neurological Exam Neurological exam: Alert, Oriented x3, Reflexes Normal Additional comments: No focal motor/sensory deficit - Psychiatric Exam Psychiatric exam: Anxious - Skin Skin Exam: Normal Color, Warm Results - Vital Signs Recent Vital Signs: Last Vital Signs Temp 98.5 F 09/29/18 12:00 Pulse 94 H 09/29/18 12:00 Resp 18 09/29/18 12:00 BP 115/74 09/29/18 12:00 Pulse Ox 99 09/29/18 12:00 reviewed Idris - Labs Result Diagrams: 09/29/18 09:45 09/29/18 09:45 Labs: Laboratory Results - last 24 hr 09/29/18 09/29/18 09/29/18 00:10 00:10 00:10 WBC 2.8 L D RBC 4.43 Hgb 13.0 D Hct 39.3 MCV 88.7 D MCH 29.4 MCHC 33.1 RDW 13.4 Plt Count 324 MPV 7.3 Neut % (Auto) 50.5 Lymph % (Auto) 36.9 Door % (Auto) 10.5 H Eos % (Auto) 1.3 Baso % (Auto) 0.8 Neut # (Auto) 1.4 L Lymph # (Auto) 1.0 Door # (Auto) 0.3 Eos # (Auto) 0.0 Baso # (Auto) 0.0 pO2 VBG pH VBG pCO2 VBG HCO3 VBG Total CO2 VBG O2 Sat (Calc) VBG Base Excess VBG Potassium Glucose Lactate FiO2 Crit Value Called To Crit Value Called By Crit Value Read Back Blood Gas Notified Time Sodium 136 Potassium 5.1 H Chloride 100 Carbon Dioxide 15 L Anion Gap 26 H BUN 13 Creatinine 0.5 L Est GFR ( Amer) > 60 Est GFR (Non-Af Amer) > 60 POC Glucose (mg/dL) Random Glucose 102 Hemoglobin A1c Calcium 9.6 Total Bilirubin 0.8 AST 72 H D ALT 34 Alkaline Phosphatase 83 Total Protein 8.1 Albumin 4.5 Globulin 3.6 Albumin/Globulin Ratio 1.2 Triglycerides Cholesterol LDL Cholesterol Direct HDL Cholesterol Lipase 36 Thyroxine (T4) TSH 3rd Generation Venous Blood Potassium Influenza Typ A,B (EIA) Negative for flu a/b 09/29/18 09/29/18 09/29/18 00:15 01:16 05:39 WBC RBC Hgb Hct MCV MCH MCHC RDW Plt Count MPV Neut % (Auto) Lymph % (Auto) Door % (Auto) Eos % (Auto) Baso % (Auto) Neut # (Auto) Lymph # (Auto) Door # (Auto) Eos # (Auto) Baso # (Auto) pO2 54 VBG pH 7.39 VBG pCO2 29 L VBG HCO3 20.0 VBG Total CO2 18.5 L VBG O2 Sat (Calc) 93.5 H VBG Base Excess -6.0 L VBG Potassium 4.0 Glucose 108 H Lactate 6.2 H* FiO2 21.0 Crit Value Called To Aria todd md Crit Value Called By 333 Crit Value Read Back Y Blood Gas Notified Time 21 Sodium 133.0 Potassium Chloride 100.0 Carbon Dioxide Anion Gap BUN Creatinine Est GFR ( Amer) Est GFR (Non-Af Amer) POC Glucose (mg/dL) 141 H 314 H Random Glucose Hemoglobin A1c Calcium Total Bilirubin AST ALT Alkaline Phosphatase Total Protein Albumin Globulin Albumin/Globulin Ratio Triglycerides Cholesterol LDL Cholesterol Direct HDL Cholesterol Lipase Thyroxine (T4) TSH 3rd Generation Venous Blood Potassium 4.0 Influenza Typ A,B (EIA) 09/29/18 09/29/18 09/29/18 09:45 09:45 09:45 WBC 2.5 L RBC 4.25 Hgb 12.5 Hct 37.8 MCV 89.1 MCH 29.4 MCHC 33.0 RDW 13.3 Plt Count 283 MPV 7.3 Neut % (Auto) 38.0 L Lymph % (Auto) 45.8 H Door % (Auto) 11.3 H Eos % (Auto) 3.6 Baso % (Auto) 1.3 Neut # (Auto) 0.9 L Lymph # (Auto) 1.1 Door # (Auto) 0.3 Eos # (Auto) 0.1 Baso # (Auto) 0.0 pO2 VBG pH VBG pCO2 VBG HCO3 VBG Total CO2 VBG O2 Sat (Calc) VBG Base Excess VBG Potassium Glucose Lactate FiO2 Crit Value Called To Crit Value Called By Crit Value Read Back Blood Gas Notified Time Sodium 135 Potassium 4.6 Chloride 100 Carbon Dioxide 15 L Anion Gap 25 H BUN 11 Creatinine 0.6 L Est GFR ( Amer) > 60 Est GFR (Non-Af Amer) > 60 POC Glucose (mg/dL) Random Glucose 553 H* D Hemoglobin A1c 9.4 H Calcium 8.8 Total Bilirubin 0.5 AST 47 H D ALT 41 Alkaline Phosphatase 104 Total Protein 6.7 Albumin 3.8 Globulin 2.8 Albumin/Globulin Ratio 1.3 Triglycerides 137 Cholesterol 137 LDL Cholesterol Direct 74 HDL Cholesterol 39 Lipase Thyroxine (T4) 6.57 TSH 3rd Generation 3.74 Venous Blood Potassium Influenza Typ A,B (EIA) 09/29/18 10:43 WBC RBC Hgb Hct MCV MCH MCHC RDW Plt Count MPV Neut % (Auto) Lymph % (Auto) Door % (Auto) Eos % (Auto) Baso % (Auto) Neut # (Auto) Lymph # (Auto) Door # (Auto) Eos # (Auto) Baso # (Auto) pO2 VBG pH VBG pCO2 VBG HCO3 VBG Total CO2 VBG O2 Sat (Calc) VBG Base Excess VBG Potassium Glucose Lactate FiO2 Crit Value Called To Crit Value Called By Crit Value Read Back Blood Gas Notified Time Sodium Potassium Chloride Carbon Dioxide Anion Gap BUN Creatinine Est GFR ( Amer) Est GFR (Non-Af Amer) POC Glucose (mg/dL) 441 H* Random Glucose Hemoglobin A1c Calcium Total Bilirubin AST ALT Alkaline Phosphatase Total Protein Albumin Globulin Albumin/Globulin Ratio Triglycerides Cholesterol LDL Cholesterol Direct HDL Cholesterol Lipase Thyroxine (T4) TSH 3rd Generation Venous Blood Potassium Influenza Typ A,B (EIA) reviewed J.P. Assessment & Plan (1) Abdominal pain Status: Acute Priority: High (2) Dehydration Status: Acute Priority: High (3) Nausea Status: Acute Priority: High (4) Vomiting Status: Acute Priority: High (5) Diarrhea Status: Acute Priority: High (6) Hyperglycemia Status: Acute Priority: High (7) Diabetes mellitus Status: Chronic Priority: High - Assessment and Plan (Free Text) Plan: F/U Abdominal U-S, EKG, continue with Fluid IV, Humalog, Levemir, Zofran prn an d rest of Tx. Endocrinology consult - Date & Time Date: 09/29/18 Time: 13:30
[2018-09-29] MEDS ORDERED: Insulin Lispro (humaLOG) 100 Units/ml Inj SC SCH (16:30)
[2018-09-29 16:38] VITALS: O2SAT 100
[2018-09-29] MEDS: Insulin Lispro (humaLOG) 100 Units/ml Inj SC SCH ×2 (17:17→22:35)
[2018-09-29 17:45] LABS: SQUAMOUS EPITHIAL 4 /hpf (0-5); URINE BACTERIA RARE (<OCC); URINE BILIRUBIN NEGATIVE (NEGATIVE); URINE BLOOD NEGATIVE (NEGATIVE); URINE CLARITY SLIGHTY-CLOUDY (Clear); URINE COLOR YELLOW (YELLOW); URINE GLUCOSE (UA) >=500 mg/dL (NEGATIVE); URINE LEUKOCYTE ESTERASE TRACE Leu/uL (Negative); URINE PROTEIN NEGATIVE (NEGATIVE); URINE UROBILINOGEN 0.2-1.0 mg/dL (0.2-1.0)
[2018-09-29] MEDS ORDERED: Insulin Detemir 100 Units/ml Inj SC SCH (22:00)
[2018-09-30] MEDS: Sodium Chloride 0.9% 1,000 ML IV SCH (00:29)
--- NOTE | 2018-09-30 01:18 | CON ---
DATE: 09/29/2018 ENDOCRINOLOGY CONSULT LOCATION: In room 408. HISTORY OF PRESENT ILLNESS: This is a 27-year-old female with recent uncontrolled type 1 insulin-dependent diabetes, presenting here with intractable nausea, dyspepsia and vomiting with supervening diffuse abdominal pain and loose watery diarrhea, and is now being referred for diabetic evaluation and management. She ascribes the aforementioned GI symptoms to a food poisoning with [employer] chicken as per the patient. PAST MEDICAL HISTORY: As mentioned above, history of type 1 insulin-dependent diabetes, on multiple insulin dose regimen given at variable dose at home as noted. She was previously on a Medtronic insulin pump, which she discontinued at this time. History of generalized anxiety and depression, off medications at this time. FAMILY HISTORY: Positive for hypertension and diabetes. SOCIAL HISTORY: The patient has a supportive mother and family with three young children. She also admits to occasional nicotine use at this time and denies any other illicit drug use. REVIEW OF SYSTEMS: Admits to generalized body weakness with progressive bouts of dizziness and lightheadedness. No chest pains or palpitations. Her oral intake has been suboptimal with nausea, dyspepsia and diffuse upper abdominal pain with intractable vomiting and loose watery diarrhea a day or so prior to admission. Also admits to marked polyuria and nocturia. PHYSICAL EXAMINATION: GENERAL: This is an average-built female, in no apparent distress. VITAL SIGNS: Blood pressure of 140/80, pulse of 70 beats per minute and regular, temperature 98, respirations 20, height is 5 feet 3 inches, and weight is 122 pounds. HEENT: Head normocephalic. Eyes anicteric with pink conjunctivae. Funduscopy not possible at this time. Ears, nose and throat otherwise normal. NECK: Supple. Thyroid gland is normal size. No carotid bruits or any cervical adenopathy. CARDIOPULMONARY: Some adynamic precordium. S1 and S2. Rapid and regular. LUNGS: Clear to auscultation. ABDOMEN: Flat, soft with positive bowel sounds. EXTREMITIES: No peripheral edema. Pulses are +2 bilaterally. LABORATORY DATA: Her chemistry showed a BUN of 11, sodium 135, potassium 4.6, chloride 100, CO2 is 15, glucose is 553, and creatinine is 0.6. Her A1c is 9.4% as noted. ASSESSMENT: This is a 27-year-old female with uncontrolled and decompensated type 1 insulin-dependent diabetes, presenting here with acute gastroenteritis, most likely related to some kind of food poisoning as per the patient with clearly suboptimal metabolic control and elevated A1c levels as noted. PLAN OF MANAGEMENT: We will modify the coverage scale to a low-dose coverage scale using Humalog insulin to obviate hypoglycemia, especially with very nil oral intake at this time. We will add basal insulin given as Levemir at 10 units subcutaneously at bedtime daily to start tonight. We will resume her insulin pump using the Medtronic pump upon discharge and we will notify the pump specialist regarding the aforementioned. We will obtain serial chemistries and supplement accordingly as needed. We will also continue the vigorous IV hydration as ordered. We will follow. Monet Gallego MD
[2018-09-30] MEDS ORDERED: Insulin Lispro (humaLOG) 100 Units/ml Inj SC ONE (05:33)
[2018-09-30] MEDS: Insulin Lispro (humaLOG) 100 Units/ml Inj SC SCH (09:01)
--- NOTE | 2018-09-30 11:36 | US ---
Date of service: 09/30/2018 HISTORY: gastroenteritis COMPARISON: Noncontrast abdomen pelvis CT 03/17/2018. TECHNIQUE: Sonographic evaluation of the abdomen. FINDINGS: LIVER: Measures 22.6 cm. Normal echogenicity of the liver parenchyma. The right lobe extends not only bilobed but along the entire anterior margins of the lower pole right kidney. Hepatomegaly suggested. No mass. No intrahepatic bile duct dilatation. GALLBLADDER: Unremarkable. No gallstones. COMMON BILE DUCT: Measures 4.3 mm. No stones. No dilatation. PANCREAS: Unremarkable as visualized. No mass. No ductal dilatation. RIGHT KIDNEY: Measures 12.0cm. Normal echogenicity. No calculus, mass, or hydronephrosis. LEFT KIDNEY: Measures 11.2cm. Normal echogenicity. No calculus, mass, or hydronephrosis. SPLEEN: Normal in size and contour, measuring 12.9. No mass. AORTA: No aneurysmal dilatation. IVC: Unremarkable. OTHER FINDINGS: None. IMPRESSION: Hepatomegaly without focal mass or intrahepatic biliary dilatation evident somewhat increased in size in the interval. Spleen upper limits normal size, marginally increased in size in the interval. Examination otherwise unremarkable appearing.
[2018-09-30 12:59] VITALS: BP 117/75; RESP 20; TEMP 97.2
[2018-09-30 13:38] VITALS: PULSE 89
--- NOTE | 2018-09-30 13:55 | PQF ---
PROVIDER RESPONSE TEXT: Due to Gastroenteritis most likely due to some kind of food poisioning. REVIEWER QUERY TEXT: Clarification of Clinical Diagnostic Findings Please clarify the etiology of the Abdominal Pain, Nausea and Vomiting if known: OR: Unable to determine OR: Other explanation of clinical finding WBC:2.8->2.5 ABG: Lactate:6.2 U/A: slightly-cloudy Leuk Esterase: trace RBC 2 WBC 5 Ur Squamous Epith Cells 4 Bacteria rare Pulse:102->96->100->88->89->94->91->91 H and P:(1) Abdominal pain Status: Acute Priority: High (2) Dehydration Status: Acute Priority: High (3) Nausea Status: Acute Priority: High (4) Vomiting Status: Acute Priority: High (5) Diarrhea Status: Acute Priority: High (6) Hyperglycemia Status: Acute Priority: High (7) Diabetes mellitus Status: Chronic Priority: High Plan: F/U Abdominal U-S, EKG, continue with Fluid IV, Humalog, Levemir, Zofran prn and rest of Tx. Endoc consult 09/29 Endocrinology consult: HPI: She ascribes the aforementioned GI symptoms to a food poisoning with [employer] chicken as per the patient Hx.: type 1 insulin-dependent diabetes, on multiple insulin dose regimen . Hx. of generalized anxiet y and depression, offmeds at this time. Assessment: uncontrolled and decompensated type 1 insulin dependent diabetes, presenting here with a cute gastroenteritis, most likely related to some kind of food poisoning as per the patient with clearly suboptimal metabolic control and elevated A1c levels as noted. --IVF's The patient's Clinical Indicators include: ---- Query created by: Elen Ortiz on 09/30/2018 12:07 PM Electronically signed by: Jean-Pierre Vasquez MD 09/30/2018 1:52 PM
--- NOTE | 2018-09-30 14:19 | CP.PCM.DIS ---
Provider - Provider Date of Admission: 09/29/18 01:29 Attending physician: Jean-Pierre Vasquez MD Consults: 09/29/18 13:43 Endocrinology Consult Routine Comment: Consulting Provider: Monet Gallego Consulting Physician: Monet Gallego Reason for Consult: uncontrolled DM type 1 Diagnosis - Discharge Diagnosis (1) Abdominal pain Status: Acute Priority: High (2) Dehydration Status: Acute Priority: High (3) Nausea Status: Acute Priority: High (4) Vomiting Status: Acute Priority: High (5) Diarrhea Status: Acute Priority: High (6) Hyperglycemia Status: Acute Priority: High (7) Diabetes mellitus Status: Chronic Priority: High Hospital Course - Lab Results Lab Results: Most Recent Lab Values WBC 2.5 K/uL (4.8-10.8) L 09/29/18 09:45 RBC 4.25 Mil/uL (3.80-5.20) 09/29/18 09:45 Hgb 12.5 g/dL (12.0-16.0) 09/29/18 09:45 Hct 37.8 % (34.0-47.0) 09/29/18 09:45 MCV 89.1 fl (81.0-99.0) 09/29/18 09:45 MCH 29.4 pg (27.0-31.0) 09/29/18 09:45 MCHC 33.0 g/dL (33.0-37.0) 09/29/18 09:45 RDW 13.3 % (11.5-14.5) 09/29/18 09:45 Plt Count 283 K/uL (130-400) 09/29/18 09:45 MPV 7.3 fl (7.2-11.7) 09/29/18 09:45 Neut % (Auto) 38.0 % (50.0-75.0) L 09/29/18 09:45 Lymph % (Auto) 45.8 % (20.0-40.0) H 09/29/18 09:45 Eaton % (Auto) 11.3 % (0.0-10.0) H 09/29/18 09:45 Eos % (Auto) 3.6 % (0.0-4.0) 09/29/18 09:45 Baso % (Auto) 1.3 % (0.0-2.0) 09/29/18 09:45 Neut # (Auto) 0.9 K/uL (1.8-7.0) L 09/29/18 09:45 Lymph # (Auto) 1.1 K/uL (1.0-4.3) 09/29/18 09:45 Eaton # (Auto) 0.3 K/uL (0.0-0.8) 09/29/18 09:45 Eos # (Auto) 0.1 K/uL (0.0-0.7) 09/29/18 09:45 Baso # (Auto) 0.0 K/uL (0.0-0.2) 09/29/18 09:45 pO2 54 mm/Hg (30-55) 09/29/18 00:15 VBG pH 7.39 (7.32-7.43) 09/29/18 00:15 VBG pCO2 29 mmHg (40-60) L 09/29/18 00:15 VBG HCO3 20.0 mmol/L 09/29/18 00:15 VBG Total CO2 18.5 mmol/L (22-28) L 09/29/18 00:15 VBG O2 Sat (Calc) 93.5 % (40-65) H 09/29/18 00:15 VBG Base Excess -6.0 mmol/L (0.0-2.0) L 09/29/18 00:15 VBG Potassium 4.0 mmol/L (3.6-5.2) 09/29/18 00:15 Sodium 133.0 mmol/L (132-148) 09/29/18 00:15 Chloride 100.0 mmol/L (98-107) 09/29/18 00:15 Glucose 108 mg/dL (65-105) H 09/29/18 00:15 Lactate 6.2 mmol/L (0.7-2.1) H* 09/29/18 00:15 FiO2 21.0 % 09/29/18 00:15 Crit Value Called To Aria todd md 09/29/18 00:15 Crit Value Called By Anthony 09/29/18 00:15 Crit Value Read Back Y 09/29/18 00:15 Blood Gas Notified Time 09/29/18 00:15 Sodium 135 mmol/l (132-148) 09/29/18 09:45 Potassium 4.6 MMOL/L (3.6-5.0) 09/29/18 09:45 Chloride 100 mmol/L (98-107) 09/29/18 09:45 Carbon Dioxide 15 mmol/L (22-30) L 09/29/18 09:45 Anion Gap 25 (10-20) H 09/29/18 09:45 BUN 11 mg/dl (7-17) 09/29/18 09:45 Creatinine 0.6 mg/dl (0.7-1.2) L 09/29/18 09:45 Est GFR ( Amer) > 60 09/29/18 09:45 Est GFR (Non-Af Amer) > 60 09/29/18 09:45 POC Glucose (mg/dL) 289 mg/dL (65-110) H 09/30/18 06:54 Random Glucose 553 mg/dL (65-105) H* D 09/29/18 09:45 Hemoglobin A1c 9.4 % (4.2-6.5) H 09/29/18 09:45 Calcium 8.8 mg/dL (8.4-10.2) 09/29/18 09:45 Total Bilirubin 0.5 mg/dl (0.2-1.3) 09/29/18 09:45 AST 47 U/L (14-36) H D 09/29/18 09:45 ALT 41 U/L (9-52) 09/29/18 09:45 Alkaline Phosphatase 104 U/L (38-126) 09/29/18 09:45 Total Protein 6.7 G/DL (6.3-8.2) 09/29/18 09:45 Albumin 3.8 g/dL (3.5-5.0) 09/29/18 09:45 Globulin 2.8 gm/dL (2.2-3.9) 09/29/18 09:45 Albumin/Globulin Ratio 1.3 (1.0-2.1) 09/29/18 09:45 Triglycerides 137 mg/DL (0-149) 09/29/18 09:45 Cholesterol 137 mg/dL (0-199) 09/29/18 09:45 LDL Cholesterol Direct 74 mg/dL (0-129) 09/29/18 09:45 HDL Cholesterol 39 MG/DL (30-70) 09/29/18 09:45 Lipase 36 U/L (23-300) 09/29/18 00:10 Thyroxine (T4) 6.57 ug/dl (5.5-11.0) 09/29/18 09:45 TSH 3rd Generation 3.74 mIU/ML (0.46-4.68) 09/29/18 09:45 Venous Blood Potassium 4.0 mmol/L (3.6-5.2) 09/29/18 00:15 Urine Color Yellow (YELLOW) 09/29/18 17:20 Urine Clarity Slighty-cloudy (Clear) 09/29/18 17:20 Urine pH 6.0 (5.0-8.0) 09/29/18 17:20 Ur Specific Keeler 1.025 (1.003-1.030) 09/29/18 17:20 Urine Protein Negative mg/dL (NEGATIVE) 09/29/18 17:20 Urine Glucose (UA) >=500 mg/dL (NEGATIVE) 09/29/18 17:20 Urine Ketones 80 mg/dL (NEGATIVE) 09/29/18 17:20 Urine Blood Negative (NEGATIVE) 09/29/18 17:20 Urine Nitrate Negative (NEGATIVE) 09/29/18 17:20 Urine Bilirubin Negative (NEGATIVE) 09/29/18 17:20 Urine Urobilinogen 0.2-1.0 mg/dL (0.2-1.0) 09/29/18 17:20 Ur Leukocyte Esterase Trace Dian/uL (Negative) 09/29/18 17:20 Urine RBC (Auto) 2 /hpf (0-3) 09/29/18 17:20 Urine Microscopic WBC 5 /hpf (0-5) 09/29/18 17:20 Ur Squamous Epith Cells 4 /hpf (0-5) 09/29/18 17:20 Urine Bacteria Rare (<OCC) 09/29/18 17:20 B-Hydroxybutyrate 1.92 mM (0.02-0.27) H 09/29/18 00:10 Influenza Typ A,B (EIA) Negative for flu a/b (NEGATIVE) 09/29/18 00:10 Discharge Exam - Head Exam Head Exam: NORMAL INSPECTION Discharge Plan - Follow Up Plan Condition: GUARDED Disposition: AGAINST MEDICAL ADVICE
--- NOTE | 2018-09-30 15:24 | PN ---
DATE: 09/30/2018 ENDOCRINOLOGY FOLLOWUP NOTE LOCATION: Room 408. SUBJECTIVE: This is a 27-year-old female with recent uncontrolled type 1 insulin-dependent diabetes, presenting here with an acute gastroenteritis and now being followed closely for metabolic management. Her glycemic levels are fluctuating as noted because of the variability of her oral intake, especially with the recent intractable vomiting and upper abdominal pain from the apparent foot poisoning as noted. Her glucose levels overnight have ranged from 71 to 166 and 427 and 289 mg/dL. LABORATORY DATA: Her chemistry showed a BUN of 11, sodium 135, potassium 4.6, chloride 100, CO2 of 25, glucose 553, and creatinine 0.6. Her A1c is 9.4, which is quite elevated at this time as noted. ASSESSMENT This is a 27-year-old female with uncontrolled and decompensated type 1 insulin-dependent diabetes, presenting here with an acute gastroenteritis and intractable vomiting and upper abdominal pain related to possible acute food poisoning and is now being followed closely for metabolic management. She clearly has suboptimal metabolic control as shown by the A1c of 9.4%, even prior to this admission. The patient has been extremely noncompliant with office visits for her diabetic care to my office as noted. She was supposed to be on a [employer] insulin pump, which the patient discontinued and has been taking only erratically p.r.n. Humalog injections as given by her primary physician. PLAN OF MANAGEMENT: As discussed lengthily with the patient at bedside, the imperative need for tighter metabolic control cannot but be overemphasized and the patient has been quite adamant and actually even angry and upset and was refusing to be seen last night by Endocrinology for her diabetic management. She said she will resume her insulin pump when she is ready. We actually called the [employer] pump specialist, Ms. Suzanna Colby regarding the aforementioned and the patient's reluctance, although possible willingness to go back and resume use of the [employer] insulin pump accordingly. In the meantime, we will recommend a combination of Humalog given as 4 to 6 units t.i.d. before meals depending on the variability of her oral intake with Lantus given as 12 units subcu at bedtime daily as given. We will obtain serial chemistries and supplement accordingly as needed. We will follow. Monet Gallego MD [facility] # [id number]
== END 2018-09-30 11:43 | disposition left against medical advice (07) | DRG 449 ==
LOC: H.ER 21:37 → H.ERHOLD 09-29 01:29 → H.TEL 09-29 03:13
PROVIDERS: ADMIT Internal Medicine Pulmonary Disease; ATTEND Internal Medicine Pulmonary Disease
DX: T62.8X1A Toxic effect of other specified noxious substances eaten as food, accidental (unintentional), initial encounter (principal); E10.65 Type 1 diabetes mellitus with hyperglycemia; E86.0 Dehydration; Z72.0 Tobacco use; Z98.891 History of uterine scar from previous surgery; K52.9 Noninfective gastroenteritis and colitis, unspecified; Z79.4 Long term (current) use of insulin; F41.1 Generalized anxiety disorder; F32.9 Major depressive disorder, single episode, unspecified; Z91.19 Patient's noncompliance with other medical treatment and regimen; R11.2 Nausea with vomiting, unspecified